=== PATIENT | male | born 1965 | race Caucasian/White ===

== ENCOUNTER 2016-09-28 15:31 | Emergency (ER) | payer MEDICARE, MEDICAID ==
[~2016-09-28] VITALS: Ht 177.8 cm; Wt 122.5 kg
[~2016-09-28 15:31] MED LIST: ALBU2.5V4 IH; ALBU8.5H2 IH; ALBU8.5H2 INH; ALLO100T PO; ALPR1T PO; ALPR1TAB7 PO; ALPR1TAB72; ALPR2TAB2 PO; AMIT25TA9 PO; AMLO10TA4 PO; ASCO-273 PO; ASCO500T20 PO; AZIT-21 PO; BETH25TA PO; CEFD300C3 PO; CEFP500T4 PO; CEFU500T5 PO; CEPH500C PO; CHOL10003 PO; CLIN300C11 PO; COLL30OI TP; CPR500T PO; D50KC PO; DCS100C PO; DOXY100C2 PO; ELTA TOP; EMBREL; ETAN50PE; ETAN50PE SQ; FLUC100T PO; FURO20TA4 PO; FURO40TA4 PO; Fluconazole PO; GABA800T2 PO; GBPN300C PO; GBPN400C PO; GBPN600T PO; HYDR1TAB PO; HYDR32TA PO; INSU100I14 SQ; INSU100I16 SQ; INSU100I5 SQ; IPRA3AMP11 INH; IPRA3AMP19 IH; IPRA3AMP19 NEB; KETO-22 PO; LEVA0.318 IH; LEVE1U SQ; LEVO750T6 PO; LISI10TA PO; LISI10TA2 PO; LISI20TA; LISI20TA PO; LISINOPRIL PO; Lasix; Levamir; METF-380 PO; METF1000; METFORMIN; METO100T2 PO; MTF500T PO; MTH10T PO; MTP25TSR; MTP50T PO; MULT1TAB63 PO; MUPI22OI TP; MUPI22OI2 TP; NEBU-140 MC; NEXIUM 20MG PO; NF-ESOM40C PO; NITR-65 PO; NST15PW TOP; NYST15PO2 TP; Nexium; Novolog; OMEP-10; OMEP20CA6; ONDA4TAB11 PO; OXC20TCR PO; OXC5T PO; OXYC-109; OXYC-272 PO; OXYC-465 PO; OXYC20TA63 PO; OXYC30TA PO; OXYC30TA80 PO; OXYC60TA9 PO; OXYC80TA35 PO; OXYC80TA39 PO; OXYC80TA4 PO; Oxycontin; PANT20TA PO; PRD10T; PRD10T PO; PRD20T PO; PRD5T PO; PRED-165; PRED10TA PO; PRED5TAB PO; PRM25T PO; PROM12.59 PO; PROM25SU10 PR; PROM25TA14 PO; PROP40TA5 PO; Phenergan; RT-ALBUINH IH; SPIR50TA27 PO; SULF-222 PO; SULF1TAB35 PO; Spironolactone; TIOT18CA IH; TIOT18CA2 INH; TMSL.4C; TMSL.4C PO; TOFA11TA PO; TRM50T PO; VITAMIN D PO; ZOLP5TAB6 PO; [UNRECOGNIZED DRUG - CODE]; [UNRECOGNIZED DRUG - OTHER]; [UNRECOGNIZED DRUG - REMARK] PO; [UNRECOGNIZED DRUG - SUPPLY]; lasix
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
[2016-09-28 16:18] LABS: BILIRUBIN,URINE NEGATIVE (NEGATIVE); KETONES,URINE NEGATIVE (NEGATIVE); LEUKOCYTE ESTERASE ,URINE 1+ (NEGATIVE); NITRITE,URINE NEGATIVE (NEGATIVE); PH,URINE 5 (5-9); PROTEIN,URINE 2+ (NEGATIVE); UROBILINOGEN,URINE 1 MG/DL (NORMAL)
[2016-09-28] MEDS ORDERED: RT-ALBUTEROL/IPRATROPIUM 3 ML (DUONEB) VIAL INH ONE (16:30)
--- NOTE | 2016-09-28 16:32 | ED GU-Male ---
General Chief Complaint: -Male Stated Complaint: WEAKNESS/BURNING WHEN URINATING/L SIDE PAIN Nursing Triage Note: to ER with complaints of UTI. Source: patient Exam Limitations: no limitations History of Present Illness Time seen by provider: 16:22 Initial Comments Here with complaint of urinary tract infection and left side pain. States that he has burning with urination over the last few days. Does have history of UTI and sepsis related to UTI so he wanted to be evaluated. Denies fever or chills but he is a little short of breath and that has increased recently. They did an albuterol inhaler at home and that seems to help a little bit. Does have history of bronchitis. Timing/Duration: getting worse, other (several days) Severity/Quality: mild, moderate Location: suprapubic Radiation: LLQ Activities at Onset: none Modifying Factors: Worsens With Urinating Associated Symptoms: abdominal pain dysuriaNo fever/chills, No lower back pain , No nausea/vomiting, urinary frequency Allergies and Home Medications Allergies Coded Allergies: hydrocodone (Verified Allergy, Unknown, TAKES OXYCODONE AT HOME, 05/05/16) STATES IS NOT ALLERGIC TO THIS MED latex (Verified Allergy, Unknown, 05/05/16) Home Medications Albuterol Sulfate 8.5 Gm Hfa.aer.ad 2 PUFF IH BID PRN PRN SHORTNESS OF BREATH ( Reported) Albuterol Sulfate 2.5 Mg/3 Ml Vial.neb #50 2.5 MG IH Q4H PRN PRN WHEEZING Prescribed by: MONTSE BHAKTA on 09/28/161916 Allopurinol 100 Mg Tablet 100 MG PO DAILY PRN PRN GOUT PAIN (Reported) Alprazolam 1 Mg Tablet 1 MG PO Q8H (Reported) Cefdinir 300 Mg Capsule #20 300 MG PO BID Prescribed by: MONTSE BHAKTA on 09/28/161916 Cholecalciferol 1,000 Unit Tablet 1,000 UNIT PO DAILY (Reported) Furosemide 40 Mg Tablet 40 MG PO DAILY PRN PRN FLUID RETENTION (Reported) Gabapentin 800 Mg Tablet 800 MG PO TID (Reported) Insulin Aspart 300 Units/3 Ml Solution SQ SLIDING/SCALE (Reported) Metoprolol Tartrate 100 Mg Tablet 50 MG PO DAILY (Reported) LAST FILLED 12/28/15 #60 Nystatin 15 Gm Powder TP DAILY PRN PRN RASH (Reported) Oxycodone HCl 30 Mg Tablet 30 MG PO Q6H PRN PRN PAIN (Reported) Oxycodone HCl 80 Mg Tab.er.12h 60 MG PO Q8H (Reported) Prednisone 5 Mg Tablet 10 MG PO DAILY (Reported) TAKES 2 (5 MG) TABLETS Promethazine HCl 25 Mg Tablet 25 MG PO Q8H PRN PRN NAUSEA/VOMITING (Reported) Tofacitinib Citrate 11 Mg Tab.er.24h #30 1 TAB PO DAILY (Reported) Constitutional: see HPINo chills, No fever Respiratory: see HPI short of breath wheezing Cardiovascular: no symptoms reported Gastrointestinal: abdominal painNo nausea, No vomiting Genitourinary: dysuria frequency Musculoskeletal: no symptoms reported Skin: no symptoms reported All Other Systemes Reviewed Negative Unless Noted: Yes Past Lxmetsx-Mopoxa-Ftvbnt Hx Patient Social History Alcohol Use: Denies Use Recreational Drug Use: No Smoking Status: Current Everyday Smoker Type Used: Cigarettes 2nd Hand Smoke Exposure: No Recent Foreign Travel: No Contact w/Someone Who Travel: No Recent Infectious Disease Expo: No Recent Hopitalizations: No Immunizations Up To Date Tetanus Booster (TDap): Unknown PED Vaccines UTD: Yes Date of Pneumonia Vaccine: Nov 12, 2012 Seasonal Allergies Seasonal Allergies: No Surgeries HX Surgeries: Yes Surgeries: Abdominal, Cardiac, Orthopedic Respiratory Hx Respiratory Disorders: Yes (TOBACCOISM; RESPIRATORY FAILURE/ON VENT) Respiratory Disorders: Pneumonia, COPD Cardiovascular Hx Cardiac Disorders: Yes (VASCULITIS) Cardiac Disorders: Chronic Edema/Swelling, Hypertension, Peripheral Vascular Neurological Hx Neurological Disorders: Yes (MONO NEURITIS; NEUROPATHY--WHEELCHAIR BOUND) Neurological Disorders: Neuropathy Reproductive System Hx Reproductive Disorders: No Sexually Transmitted Disease: No HIV/AIDS: No Genitourinary Hx Genitourinary Disorders: Yes Genitourinary Disorders: Kidney Stones, Renal Failure Gastrointestinal Hx Gastrointestinal Disorders: Yes (HEPATITIS C--NO TREATMENT. BILARY STENT) Gastrointestinal Disorders: Gastroesophageal Reflux, Hepatitis, Gall Bladder Disease Musculoskeletal Hx Musculoskeletal Disorders: Yes Musculoskeletal Disorders: Degenerate Disk Disease, Arthritis, Rheumatoid Arthritis, Chronic Back Pain Endocrine Hx Endocrine Disorders: Yes (MORBID OBESITY) Endocrine Disorders: Diabetes, Insulin dep HEENT HX ENT Disorders: No Loss of Vision: Denies Hearing Impairment: Denies Cancer Hx Cancer: No Psychosocial Hx Psychiatric Problems: Yes Behavioral Health Disorders: Sleep Difficulties, Anxiety, Depression Integumentary HX Skin/Integumentary Disorder: No Blood Transfusions Hx Blood Disorders: No Reviewed Nursing Assessment Reviewed/Agree w Nursing PMH: Yes Family Medical History Family Medial History: Alcoholism 03 FATHER Diabetes mellitus 03 FATHER Family history: Allergy 03 MOTHER Family history: Asthma 03 MOTHER Family history: Hypertension 03 FATHER 03 MOTHER Physical Exam Vital Signs Vital Sign - Last 12Hours 09/28/16 09/28/16 15:40 17:06 Temp 98.4 Pulse 97 Resp 18 B/P 131/97 Pulse Ox 86 O2 Delivery Room Air O2 Flow Rate 3 Capillary Refill : Less Than 3 Seconds General Appearance: WD/WN no apparent distress HEENT: PERRL/EOMI pharynx normal Neck: full range of motion supple Cardiovascular: regular rate, rhythm no murmur Respiratory: no accessory muscle use decreased breath sounds Gastrointestinal: non tender soft Back: normal inspection no CVA tenderness no vertebral tenderness Extremities: non-tender normal inspection Neurologic/Psychiatric: alert oriented x 3 Skin: normal color warm/dry Date of ETT Placement: Feb 25, 2016 Time of ETT Placement: 1508 Progress/Results/Core Measures Results/Orders Lab Results Laboratory Tests Test 09/28/16 16:10 09/28/16 16:31 09/28/16 17:37 Range/Units Urine Bacteria FEW H /HPF Urine Bilirubin NEGATIVE NEGATIVE Urine Casts PRESENT /LPF Urine Clarity SLIGHTLY CLOUDY Urine Color JER H Urine Crystals NONE /LPF Urine Culture Indicated YES Urine Glucose (UA) 2+ H NEGATIVE Urine Granular Casts 0-2 H /LPF Urine Hyaline Casts 10-25 H /LPF Urine Ketones NEGATIVE NEGATIVE Urine Leukocyte Esterase 1+ H NEGATIVE Urine Mucus SMALL H /LPF Urine Nitrite NEGATIVE NEGATIVE Urine Protein 2+ H NEGATIVE Urine RBC RARE /HPF Urine RBC (Auto) NEGATIVE NEGATIVE Urine Renal Epithelial Cells NONE /HPF Urine Specific [place] 1.030 H 1.016-1.022 Urine Squamous Epithelial Cells 2-5 /HPF Urine Urobilinogen 1 NORMAL MG/DL Urine WBC 2-5 /HPF Urine pH 5 5-9 Glucometer 212 H 70-110 MG/DL Alanine Aminotransferase (ALT/SGPT) 97 H 0-55 U/L Albumin 3.7 3.2-4.5 G/DL Alkaline Phosphatase 71 40-136 U/L Anion Gap 11 5-14 MMOL/L Aspartate Amino Transf (AST/SGOT) 111 H 5-34 U/L BUN/Creatinine Ratio 4 Basophils # (Auto) 0.0 0.0-0.1 10^3/uL Basophils (%) (Auto) 0 0-10 % Blood Urea Nitrogen 7 7-18 MG/DL Calcium Level 11.4 H 8.5-10.1 MG/DL Carbon Dioxide Level 25 21-32 MMOL/L Chloride Level 103 98-107 MMOL/L Creatinine 1.58 H 0.60-1.30 MG/DL Eosinophils # (Auto) 0.1 0.0-0.3 10^3/uL Eosinophils (%) (Auto) 1 0-10 % Estimat Glomerular Filtration Rate 46 Glucose Level 232 H 70-105 MG/DL Hematocrit 43 40-54 % Hemoglobin 14.1 13.3-17.7 G/DL Lymphocytes # (Auto) 1.2 1.0-4.0 X 10^3 Lymphocytes (%) (Auto) 11 L 12-44 % Mean Corpuscular Hemoglobin 33 25-34 PG Mean Corpuscular Hemoglobin Concent 33 32-36 G/DL Mean Corpuscular Volume 101 H 80-99 FL Mean Platelet Volume 10.4 7.4-10.4 FL Monocytes # (Auto) 0.5 0.0-1.0 X 10^3 Monocytes (%) (Auto) 4 0-12 % Neutrophils # (Auto) 9.1 H 1.8-7.8 X 10^3 Neutrophils (%) (Auto) 84 H 42-75 % Platelet Count 183 130-400 10^3/uL Potassium Level 4.8 3.6-5.0 MMOL/L Red Blood Count 4.26 L 4.35-5.85 10^6/uL Red Cell Distribution Width 14.0 10.0-14.5 % Sodium Level 139 135-145 MMOL/L Total Bilirubin 1.0 0.1-1.0 MG/DL Total Protein 7.0 6.4-8.2 G/DL White Blood Count 10.9 4.3-11.0 10^3/uL My Orders Orders-MONTSE BHAKTA MD Ua Culture If Indicated (09/28/16 16:13) Albuterol/Ipra Inhalation Soln (Duoneb I (09/28/16 16:30) Accucheck Stat ONCE (09/28/16 16:27) Svn Sm Volume Nebulizer Rt-Rfs (09/28/16 16:27) Chest 1 View, Ap/Pa Only (09/28/16 16:27) Urine Culture (09/28/16 16:10) Albuterol Pre-Mix Nebs (Rt) (Proventil P (09/28/16 17:02) Svn Sm Volume Nebulizer Rt-Rfs (09/28/16 17:02) Albuterol Pre-Mix Nebs (Rt) (Proventil P (09/28/16 17:02) Cbc With Automated Diff (09/28/16 17:22) Comprehensive Metabolic Panel (09/28/16 17:22) Cefdinir Capsule (Omnicef Capsule) (09/28/16 18:45) Rx-Albuterol Nebs (Rx-Proventil Nebs) (09/28/16 18:45) Prednisone Tablet (Deltasone Tablet) (09/28/16 19:30) Medications Given in ED Current Medications Medications Dose Ordered Sig/Lashawn Route Start Time Stop Time Status Last Admin Dose Admin Albuterol/ Ipratropium 3 ml ONCE ONCE INH 09/28/16 16:30 09/28/16 16:31 DC 09/28/16 16:40 3 ML Cefdinir 300 mg ONCE ONCE PO 09/28/16 18:45 09/28/16 18:46 DC 09/28/16 19:06 300 MG Vital Signs/I&O Vital Sign - Last 12Hours 09/28/16 09/28/16 09/28/16 15:40 16:45 17:06 Temp 98.4 Pulse 97 Resp 18 B/P 131/97 Pulse Ox 86 91 92 O2 Delivery Room Air O2 Flow Rate 3 Blood Pressure Mean: 108 Progress Note : Progress Note Seen and evaluated. UA and chest x-ray ordered. UTI noted. Labs ordered. Patient did receive DuoNeb which did help a little. We did do to repeat albuterol treatments and this did markedly improve his breathing. Labs reviewed with the patient as well as the chest x-ray. We will initiate Cefdinir for UTI which will also cover lungs and initiate prednisone treatment for bronchitis. He will be sent home with a beer all labs and have albuterol neb ordered for home. Patient will follow-up with his doctor on Friday or Friday. He will keep his oxygen increased at home next few days. All of these findings, concerns and instructions discussed with the patient and his mother. Discharge home with return precautions. Patient and family verbalize understanding instructions and agreement with plan. Prednisone 40 mg by mouth given now. He will take prescribed prednisone plus his home dose prednisone daily for the next 5 days and then back to his normal prednisone dosing. Diagnostic Imaging Diagonstic Imaging: Xray Plain Films/CT/US/NM/MRI: chest Comments NAME: [facility] REC#: [id number] PT STATUS: REG ER : 1965 PHYSICIAN: MONTSE BHAKTA MD ADMIT DATE: 09/28/16/ER Signed Date of Exam: 09/28/16 CHEST 1 VIEW, AP/PA ONLY EXAM: Chest 1 view, AP/PA only. INDICATION: Fatigue. Possible UTI. COMPARISON: Chest radiograph from 02/28/2016. FINDINGS: Normal heart size and pulmonary vascularity. Linear atelectasis and/or scarring in the left midlung. No pleural effusion or pneumothorax. IMPRESSION: No acute cardiopulmonary findings. Dictated by: Dictated on workstation # [id number] Dict: 09/28/16 1648 Trans: 09/28/16 1729 [facility] [id number] Interpreted by: KATH ALFARO MD Electronically signed by:KATH ALFARO MD 09/28/16 1731 Reviewed: Reviewed by Me Departure Impression Impression: Primary Impression: Urinary tract infection Qualified Code: N30.00 - Acute cystitis without hematuria Additional Impression: Bronchitis Disposition: 01 HOME, SELF-CARE Condition: Improved Departure-Patient Inst. Decision time for Depature: 19:10 Referrals: GLENN SHAHID MD (PCP) Primary Care Physician Patient Instructions: Acute Bronchitis, Adult (DC), Urinary Tract Infection, Adult (DC) Add. Discharge Instructions: All discharge instructions reviewed with patient and/or family. Voiced understanding. Take your medication as directed. Continue albuterol treatments every 4 hours while awake. Use oxygen at 3 L via nasal cannula at all times for the next few days and then you may return to as needed. You should check your oxygen levels before you do that. Follow-up with your doctor on Friday or Friday for recheck. Return for worse pain, fever, vomiting, weakness, breathing problems or other concerns as needed. Scripts Prednisone 20 Mg Tab20 Mg PO DAILY #5 TAB Prov:MONTSE BHAKTA MD 09/28/16 Albuterol Sulfate 2.5 Mg/3 Ml Vial.neb2.5 Mg IH Q4H PRN WHEEZING #50 EA Ref 0 Prov:MONTSE BHAKTA MD 09/28/16 Cefdinir 300 Mg [id number] Mg PO BID #20 CAP Prov:MONTSE BHAKTA MD 09/28/16 MONTSE BHAKTA MD Sep 28, 2016 16:32
[2016-09-28 16:35] LABS: GRANULAR CASTS,URINE 0-2 /LPF
[2016-09-28] MEDS ORDERED: RT-ALBUTEROL SULF 2.5 MG/3 ML PRE-MIX VIAL INH STA (17:02)
[2016-09-28] MEDS ORDERED: RT-ALBUTEROL SULF 2.5 MG/3 ML PRE-MIX VIAL ONE (17:02)
--- NOTE | 2016-09-28 17:06 | Diagnostic Imaging Report ---
EXAM: Chest 1 view, AP/PA only. INDICATION: Fatigue. Possible UTI. COMPARISON: Chest radiograph from 02/28/2016. FINDINGS: Normal heart size and pulmonary vascularity. Linear atelectasis and/or scarring in the left midlung. No pleural effusion or pneumothorax. IMPRESSION: No acute cardiopulmonary findings. Dictated by: Dictated on workstation # [id number]
[2016-09-28 17:45] LABS: BASOPHILS % (AUTO) 0 % (0-10); EOSINOPHILS # (AUTO) 0.1 10^3/uL (0.0-0.3); EOSINOPHILS % (AUTO) 1 % (0-10); LYMPHOCYTES # (AUTO) 1.2 X 10^3 (1.0-4.0); LYMPHOCYTES % (AUTO) 11 % (12-44); MEAN CORPUSCULAR HEMOGLOBIN 33 PG (25-34); MEAN CORPUSCULAR HGB CONC 33 G/DL (32-36); MEAN CORPUSCULAR VOLUME 101 FL (80-99); MEAN PLATELET VOLUME 10.4 FL (7.4-10.4); MONOCYTES # (AUTO) 0.5 X 10^3 (0.0-1.0); MONOCYTES % (AUTO) 4 % (0-12); NEUTROPHILS # (AUTO) 9.1 X 10^3 (1.8-7.8); NEUTROPHILS % (AUTO) 84 % (42-75); PLATELET COUNT 183 10^3/uL (130-400); RED BLOOD COUNT 4.26 10^6/uL (4.35-5.85); WHITE BLOOD COUNT 10.9 10^3/uL (4.3-11.0)
[2016-09-28 18:10] LABS: ALBUMIN 3.7 G/DL (3.2-4.5); CALCIUM 11.4 MG/DL (8.5-10.1); CREATININE SERUM 1.58 MG/DL (0.60-1.30); POTASSIUM 4.8 MMOL/L (3.6-5.0)
[2016-09-28] MEDS ORDERED: CEFDINIR 300 MG (OMNICEF) CAP PO ONE (18:45)
[2016-09-28] MEDS ORDERED: RX-ALBUTEROL NEB 2.5 MG/3 ML PACK #5 IH STA (18:45)
[2016-09-28] MEDS ORDERED: CEFD300C3 PO (19:17)
[2016-09-28] MEDS ORDERED: ALBU2.5V4 IH (19:17)
[2016-09-28] MEDS ORDERED: predniSONE 20 MG TAB ONE (19:21)
[2016-09-28] MEDS ORDERED: PRD20T PO (19:22)
[2016-09-28 19:30] VITALS: BP 105/65
[2016-09-28] MEDS ORDERED: predniSONE 20 MG TAB PO ONE (19:30)
== END 2016-09-28 19:30 | disposition home or self-care (01) ==
LOC: EDUNIT# 15:31 → ER 15:33
DX: N39.0 Urinary tract infection, site not specified (principal); J44.9 Chronic obstructive pulmonary disease, unspecified; E11.9 Type 2 diabetes mellitus without complications; E66.01 Morbid (severe) obesity due to excess calories; F17.210 Nicotine dependence, cigarettes, uncomplicated; Z79.899 Other long term (current) drug therapy; Z79.4 Long term (current) use of insulin; Z99.81 Dependence on supplemental oxygen
CPT/HCPCS: 36415; 71010; 80053; 81000; 82962; 85025; 87088; 94640; 99283

== ENCOUNTER → 2016-10-24 | Outpatient (CLI) | payer MEDICARE, MEDICAID ==
[~2016-10-24] MED LIST changes: +AMOX-358 PO; +ERYT1OIN6 OP
--- OUTSIDE RECORDS SUMMARY | 2016-10-24 09:18 | XMS REPORT | Continuity of Care Document ---
Author Author [facility] Organization [facility] Address Unknown Phone Unavailable Care Team Providers Care Customer Relations Coordinator Name Role Phone Gustavo Rosario PCP [phone] Source Comments Some departments are not documenting in the electronic medical record. If you do not see the information that you expected, contact Release of Information in the Health Information Management department at [phone] for further assistance in locating additional records.[facility] Active Allergies and Adverse Reactions Allergen [...] Recent Encounters Date Type Specialty Providers Description 10/18/2016 Telephone Neurology Juanpablo Forman MD Appointment Request 09/27/2016 Telephone Neurology Juanpablo Forman MD Appointment [...] 06/20/2016 11:30 AM CDT Plan of Care Date Type Specialty Providers Description 02/04/2017 Appointment Neurology Juanpablo Forman MD [address] [place] [address] [phone] (Fax) 02/04/2017 Appointment Neurology Health Maintenance Due Date Last Done Comments Physical (Comprehensive) 1972 Exam Pertussis Vaccine 1976 Tetanus Vaccine 1982 Colorectal Cancer 2015 Screening Influenza Vaccine 04/18/2017 Results from Last 3 Months Not on file
--- NOTE | 2016-10-24 15:47 | Diagnostic Imaging Report ---
Bilateral feet. INDICATION: Foot pain, diabetic neuropathy. FINDINGS: Three views of both feet were obtained. As noted on the prior left foot exam of 07/14/2016, there are healing slightly displaced fractures involving the necks of the second, third, and fourth metatarsals. There does seem to have been somewhat further healing of these fractures in the interval since the prior exam. I suspect that the fractures are now nearly completely if not completely healed. There is no fracture or acute bony abnormality of either foot; however, the osseous structures are demineralized. There is also a small calcaneal spur. Furthermore, the lateral view does show that there is soft tissue edema over the dorsum of the forefoot on the right. The soft tissues of the left foot are generally unremarkable. There is no radiopaque foreign body identified. All of these findings are similar to the prior exam of 07/14/2016. IMPRESSION: 1. There has been further healing of the fractures of the necks of the second, third, and fourth metatarsals of the left foot in the interval since the prior exam. The fractures are now nearly completely if not completely healed. 2. There is no acute bony abnormality identified, but there is again soft tissue edema over the dorsum of the forefoot on the right. 3. If clinical concern regarding an underlying abnormality persists, then MRI will be recommended for further study. Dictated by: Dictated on workstation # [id number]
--- NOTE | 2016-10-24 15:52 | Diagnostic Imaging Report ---
Bilateral hands. INDICATION: Bilateral hand pain. FINDINGS: Three views of each hand were obtained. There are no prior studies available for comparison. There is no fracture, dislocation, or acute bony abnormality evident. The osseous structures are demineralized and there is moderate degenerative disease involving the PIP and DIP joints of each digit of each hand. The soft tissues are unremarkable. IMPRESSION: 1. There is no evidence for an acute bony abnormality. 2. The osseous structures are demineralized and there are degenerative changes involving the PIP and DIP joints of each digit of both hands. Dictated by: Dictated on workstation # [id number]
--- NOTE | 2016-10-24 16:23 | Diagnostic Imaging Report ---
PA and lateral chest at 09:50 a.m. INDICATION: Respiratory distress. FINDINGS: The cardiomegaly noted on 02/28/2016 is again evident and no different. The thin band of increased density in the right mid lung noted on the previous study has resolved. The lungs are generally clear and well aerated. There is no evidence for failure, pneumonia, or for pleural effusion. The mediastinum is not widened. The osseous structures are intact. IMPRESSION: There is no evidence for an acute cardiopulmonary abnormality. Dictated by: Dictated on workstation # [id number]
== END ==
LOC: RAD 09:14
PROVIDERS: ATTEND Internal Medicine Rheumatology
DX: B19.20 Unspecified viral hepatitis C without hepatic coma (principal); G63 Polyneuropathy in diseases classified elsewhere; N28.9 Disorder of kidney and ureter, unspecified; K74.60 Unspecified cirrhosis of liver; Z79.899 Other long term (current) drug therapy
CPT/HCPCS: 36415; 71020; 82595

== ENCOUNTER 2016-12-15 10:28 | Emergency (ER) | payer MEDICARE, MEDICAID ==
[~2016-12-15] VITALS: Ht 177.8 cm; Wt 127.0 kg
[~2016-12-15 10:28] MED LIST changes: -AMOX-358 PO; -ERYT1OIN6 OP
[2016-12-15 10:45] VITALS: BP 148/102
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
[2016-12-15] MEDS ORDERED: NS IV 1000 ML 1,000 ML IV ONE (11:32)
[2016-12-15] MEDS ORDERED: morphine INJ 10 MG/ML 1ML (SYR OR VIAL) IVP STA (11:32)
[2016-12-15] MEDS ORDERED: ORPHENADRINE 60 MG/2 ML (NORFLEX) AMP IM STA (11:32)
[2016-12-15] MEDS ORDERED: ONDANSETRON 4 MG (ZOFRAN) ORAL DISSOLVE TAB SL STA (11:40)
[2016-12-15] MEDS ORDERED: morphine INJ 10 MG/ML 1ML (SYR OR VIAL) IM STA (11:40)
[2016-12-15] MEDS ORDERED: diphenhydrAMINE 25 MG TAB (BENADRYL) PO ONE (11:45)
[2016-12-15] MEDS ORDERED: ONDANSETRON 4 MG/2 ML (SDV) Z0FRAN IVP ONE (11:45)
--- NOTE | 2016-12-15 12:15 | Diagnostic Imaging Report ---
PROCEDURE: CT head without contrast. TECHNIQUE: Multiple contiguous axial images were obtained through the brain without the use of intravenous contrast. INDICATION: Headaches Comparison: 02/25/2016 Findings: No acute intracranial hemorrhage, mass effect or edema seen. There is mild diffuse atrophy. The ventricles appear normal. No new focal abnormality is suspected. Paranasal sinuses appear clear. Impression: No evidence of an acute intracranial abnormality. No significant interval change from the prior study. Dictated by: Dictated on workstation # [id number]
[2016-12-15] MEDS ORDERED: ERYT1OIN6 OP (12:30)
[2016-12-15] MEDS ORDERED: oxyCODONE/APAP 5/325MG (PERCOCET 5) TABLET PO STA (13:10)
== END 2016-12-15 13:21 | disposition home or self-care (01) ==
LOC: EDUNIT# 10:28 → ER 10:30
DX: G43.909 Migraine, unspecified, not intractable, without status migrainosus (principal); H10.32 Unspecified acute conjunctivitis, left eye; J44.9 Chronic obstructive pulmonary disease, unspecified; E11.9 Type 2 diabetes mellitus without complications; E66.01 Morbid (severe) obesity due to excess calories; Z79.4 Long term (current) use of insulin; Z79.899 Other long term (current) drug therapy
CPT/HCPCS: 70450; 96372; 99282

== ENCOUNTER 2016-12-20 19:01 | Emergency (ER) | payer MEDICARE, MEDICAID ==
[~2016-12-20] VITALS: Ht 177.8 cm; Wt 127.0 kg
[~2016-12-20 19:01] MED LIST changes: +ERYT1OIN6 OP
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
[2016-12-20 19:47] LABS: BASOPHILS % (AUTO) 0 % (0-10); EOSINOPHILS # (AUTO) 0.1 10^3/uL (0.0-0.3); EOSINOPHILS % (AUTO) 1 % (0-10); LYMPHOCYTES % (AUTO) 11 % (12-44); MEAN CORPUSCULAR HEMOGLOBIN 32 PG (25-34); MEAN CORPUSCULAR HGB CONC 32 G/DL (32-36); MEAN CORPUSCULAR VOLUME 99 FL (80-99); MEAN PLATELET VOLUME 10.9 FL (7.4-10.4); MONOCYTES # (AUTO) 0.5 X 10^3 (0.0-1.0); MONOCYTES % (AUTO) 5 % (0-12); NEUTROPHILS # (AUTO) 7.7 X 10^3 (1.8-7.8); NEUTROPHILS % (AUTO) 83 % (42-75); PLATELET COUNT 165 10^3/uL (130-400); RED BLOOD COUNT 4.24 10^6/uL (4.35-5.85); WHITE BLOOD COUNT 9.3 10^3/uL (4.3-11.0)
[2016-12-20] MEDS ORDERED: AMOX-358 PO (19:57)
--- NOTE | 2016-12-20 19:59 | Diagnostic Imaging Report ---
INDICATION: Right leg swelling. TECHNIQUE: Grayscale with color-flow and Doppler waveform evaluation of the right lower extremity deep venous system. CORRELATION STUDY: None FINDINGS: Color and grayscale sonographic images demonstrate no intraluminal defect within the visualized portion of the common femoral, superficial femoral and/or popliteal veins to suggest thrombus formation. These vessels demonstrate normal response to compression and augmentation. Subcutaneous edema is present. IMPRESSION: 1. Negative for deep venous thrombosis of the right leg. Dictated by: Dictated on workstation # [id number]
[2016-12-20] MEDS ORDERED: cefTRIAXone 1 GM (ROCEPHIN) VIAL IM ONE (20:00)
[2016-12-20] MEDS ORDERED: LIDOCAINE 1% INJ 20 ML (XYLOCAINE) VIAL INJ ONE (20:00)
[2016-12-20 20:08] LABS: CALCIUM 10.8 MG/DL (8.5-10.1); CREATININE SERUM 1.3 MG/DL (0.60-1.30); POTASSIUM 4.6 MMOL/L (3.6-5.0)
[2016-12-20 20:27] VITALS: BP 158/88
== END 2016-12-20 20:27 | disposition home or self-care (01) ==
LOC: EDUNIT# 19:01 → ER 19:03
DX: L03.115 Cellulitis of right lower limb (principal); E11.9 Type 2 diabetes mellitus without complications; J44.9 Chronic obstructive pulmonary disease, unspecified; F17.210 Nicotine dependence, cigarettes, uncomplicated; E66.01 Morbid (severe) obesity due to excess calories; Z68.41 Body mass index [BMI] 40.0-44.9, adult; Z79.4 Long term (current) use of insulin; Z79.899 Other long term (current) drug therapy
CPT/HCPCS: 36415; 80048; 85025; 96372; 99281

== ENCOUNTER 2017-03-25 13:48 | Emergency (ER) | payer MEDICARE, MEDICAID ==
[~2017-03-25] VITALS: Ht 177.8 cm; Wt 131.6 kg
[~2017-03-25 13:48] MED LIST changes: +AMOX-358 PO
--- NOTE | 2017-03-25 14:26 | ED Back Pain ---
General Chief Complaint: Back Problems Stated Complaint: FALL/LOWER BACK PAIN Nursing Triage Note: pt reports he fell off his walker chair and landed on his bottom. pt reports tailbone pain. Nursing Sepsis Screen: No Definite Risk Source of Information: Patient Exam Limitations: No Limitations History of Present Illness Time Seen by Provider: 13:54 Initial Comments Here with complaint of pain to the tailbone area. He is apparently transferring from a bedside commode to his prior scooter when he fell and landed on his bottom. Complains of pain to that area. Denies other injury. Location: Coccyx Timing/Duration: 1 Hour Severity: Moderate Pain/Injury Location: Pelvis Method of Injury: Fall Modifying Factors: Worse With Movement Associated Symptoms: No muscle spasms, No fever, No weakness, numbness in legs/ feet (chronic) Allergies and Home Medications Allergies Coded Allergies: hydrocodone (Verified Allergy, Unknown, TAKES OXYCODONE AT HOME, 05/05/16) STATES IS NOT ALLERGIC TO THIS MED latex (Verified Allergy, Unknown, 05/05/16) Home Medications Albuterol Sulfate 8.5 Gm Hfa.aer.ad, 2 PUFF IH BID PRN for SHORTNESS OF BREATH, (Reported) Albuterol Sulfate 2.5 Mg/3 Ml Vial.neb, 2.5 MG IH Q4H PRN for WHEEZING, #50 Ref 0 Prescribed by: MONTSE BHAKTA on 09/28/161916 Allopurinol 100 Mg Tablet, 100 MG PO DAILY PRN for GOUT PAIN, (Reported) Alprazolam 1 Mg Tablet, 1 MG PO Q8H, (Reported) Amoxicillin/Potassium Clav 1 Each Tablet, 1 EACH PO BID, #14 Prescribed by: CANDACE ACOSTA on 12/20/161956 Cholecalciferol 1,000 Unit Tablet, 1,000 UNIT PO DAILY, (Reported) Erythromycin Base 1 Gm Oint...g., 0 OP Q4H, #1 Ref 0 1/2 inch Prescribed by: JOHNNA YEAGER on 12/15/16 1230 Furosemide 40 Mg Tablet, 40 MG PO DAILY PRN for FLUID RETENTION, (Reported) Gabapentin 800 Mg Tablet, 800 MG PO TID, (Reported) Insulin Aspart 300 Units/3 Ml Solution, SQ SLIDING/SCALE, (Reported) Metoprolol Tartrate 100 Mg Tablet, 50 MG PO DAILY, (Reported) LAST FILLED 12/28/15 #60 Nystatin 15 Gm Powder, TP DAILY PRN for RASH, (Reported) Oxycodone HCl 30 Mg Tablet, 30 MG PO Q6H PRN for PAIN, (Reported) Oxycodone HCl 80 Mg Tab.er.12h, 60 MG PO Q8H, (Reported) Prednisone 5 Mg Tablet, 10 MG PO DAILY, (Reported) TAKES 2 (5 MG) TABLETS Prednisone 20 Mg Tab, 20 MG PO DAILY, #5 Prescribed by: MONTSE BHAKTA on 09/28/161921 Promethazine HCl 25 Mg Tablet, 25 MG PO Q8H PRN for NAUSEA/VOMITING, (Reported) Tofacitinib Citrate 11 Mg Tab.er.24h, 1 TAB PO DAILY, #30 (Reported) Constitutional: see HPI, No chills, No fever Respiratory: no symptoms reported Cardiovascular: no symptoms reported Gastrointestinal: no symptoms reported Musculoskeletal: see HPI, back pain, joint pain Skin: no symptoms reported Past Xijjkqa-Rxsnoe-Vrgldl Hx Patient Social History Alcohol Use: Denies Use Recreational Drug Use: No Smoking Status: Current Everyday Smoker Type Used: Cigarettes 2nd Hand Smoke Exposure: No Recent Foreign Travel: No Contact w/Someone Who Travel: No Recent Infectious Disease Expo: No Recent Hopitalizations: No Immunizations Up To Date Tetanus Booster (TDap): Unknown PED Vaccines UTD: Yes Date of Pneumonia Vaccine: Nov 12, 2012 Seasonal Allergies Seasonal Allergies: No Surgeries HX Surgeries: Yes Surgeries: Abdominal, Cardiac, Orthopedic Respiratory Hx Respiratory Disorders: Yes (TOBACCOISM; RESPIRATORY FAILURE/ON VENT) Respiratory Disorders: Pneumonia, COPD Cardiovascular Hx Cardiac Disorders: Yes (VASCULITIS) Cardiac Disorders: Chronic Edema/Swelling, Hypertension, Peripheral Vascular Neurological Hx Neurological Disorders: Yes (MONO NEURITIS; NEUROPATHY--WHEELCHAIR BOUND) Neurological Disorders: Neuropathy Reproductive System Hx Reproductive Disorders: No Sexually Transmitted Disease: No HIV/AIDS: No Genitourinary Hx Genitourinary Disorders: Yes Genitourinary Disorders: Kidney Stones, Renal Failure Gastrointestinal Hx Gastrointestinal Disorders: Yes (HEPATITIS C--NO TREATMENT. BILARY STENT) Gastrointestinal Disorders: Gastroesophageal Reflux, Hepatitis, Gall Bladder Disease Musculoskeletal Hx Musculoskeletal Disorders: Yes Musculoskeletal Disorders: Degenerate Disk Disease, Arthritis, Rheumatoid Arthritis, Chronic Back Pain Endocrine Hx Endocrine Disorders: Yes (MORBID OBESITY) Endocrine Disorders: Diabetes, Insulin dep HEENT HX ENT Disorders: No Loss of Vision: Denies Hearing Impairment: Denies Cancer Hx Cancer: No Psychosocial Hx Psychiatric Problems: Yes Behavioral Health Disorders: Sleep Difficulties, Anxiety, Depression Integumentary HX Skin/Integumentary Disorder: No Blood Transfusions Hx Blood Disorders: No Reviewed Nursing Assessment Reviewed/Agree w Nursing PMH: Yes Family Medical History Significant Family History: No Pertinent Family Hx Family Medial History: Alcoholism 03 FATHER Diabetes mellitus 03 FATHER Family history: Allergy 03 MOTHER Family history: Asthma 03 MOTHER Family history: Hypertension 03 FATHER 03 MOTHER Physical Exam Vital Signs Vital Sign - Last 12Hours 03/25/17 14:04 Temp 97.9 Pulse 84 Resp 18 B/P (MAP) 208/120 Pulse Ox 98 Capillary Refill : Less Than 3 Seconds General Appearance: No Apparent Distress, WD/WN Cardiovascular: Regular Rate, Rhythm, No Murmur Respiratory: Lungs Clear, Normal Breath Sounds Back: Normal Inspection, No CVA Tenderness, No Vertebral Tenderness, Other ( tender at the area of the distal sacrum/coccyx) Neurologic/Psychiatric: Alert, Oriented x3 Date of ETT Placement: Feb 25, 2016 Time of ETT Placement: 1508 Progress/Results/Core Measures Results/Orders Lab Results Laboratory Tests Test 03/25/17 14:47 Range/Units Urine Color YELLOW Urine Clarity CLEAR Urine pH 8 5-9 Urine Specific [place] 1.010 L 1.016-1.022 Urine Protein 1+ H NEGATIVE Urine Glucose (UA) NEGATIVE NEGATIVE Urine Ketones 1+ H NEGATIVE Urine Nitrite NEGATIVE NEGATIVE Urine Bilirubin NEGATIVE NEGATIVE Urine Urobilinogen NORMAL NORMAL MG/DL Urine Leukocyte Esterase 1+ H NEGATIVE Urine RBC (Auto) NEGATIVE NEGATIVE Urine RBC NONE /HPF Urine WBC 2-5 /HPF Urine Crystals NONE /LPF Urine Bacteria NONE /HPF Urine Casts NONE /LPF Urine Mucus NEGATIVE /LPF Urine Culture Indicated NO My Orders Orders - MONTSE BHAKTA MD Pelvis (03/25/17 13:58) Sacrum And Coccyx (03/25/17 13:58) Ua Culture If Indicated (03/25/17 14:29) Vital Signs/I&O Vital Sign - Last 12Hours 03/25/17 14:04 Temp 97.9 Pulse 84 Resp 18 B/P (MAP) 208/120 Pulse Ox 98 Blood Pressure Mean: 149 Progress Note : Progress Note Seen and evaluated. X-ray pelvis and sacrum/coccyx ordered. Monitor patient. UA ordered. No acute findings on x-ray or urine. Discharged home with return precautions. Patient verbalize understanding instructions and agreement with plan. Diagnostic Imaging Diagonstic Imaging: Xray Plain Films/CT/US/NM/MRI: pelvis Comments NAME: STEVEN STEPHENS [facility] REC#: [id number] PT STATUS: REG ER : 1965 PHYSICIAN: MONTSE BHAKTA MD ADMIT DATE: 03/25/17/ER Signed Date of Exam: 03/25/17 PELVIS AP view of the pelvis. INDICATION: Injury. FINDINGS: No fracture or dislocation is seen. Joint alignment is satisfactory. There is mild/moderate joint space narrowing and subchondral sclerosis seen bilaterally in the hip joints. There are also sclerotic changes in the femoral heads bilaterally suggestive of avascular necrosis. This appears to be chronic and comparable to findings of CT scan of 12/03/2015. The SI joints appear unremarkable. IMPRESSION: Moderate bilateral hip osteoarthritis. 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 Dictated by: Dictated on workstation # [id number] Dict: 03/25/17 1441 Trans: 03/25/17 1458 Interpreted by: HAMZAH METZ MD Electronically signed by: HAMZAH METZ MD 03/25/171457 Reviewed: Reviewed by Me Diagonstic Imaging: Xray Plain Films/CT/US/NM/MRI: other (sacrum and coccyx) Comments NAME: STEVEN STEPHENS [facility] REC#: [id number] PT STATUS: REG ER : 1965 PHYSICIAN: MONTSE BHAKTA MD ADMIT DATE: 03/25/17/ER Signed Date of Exam: 03/25/17 SACRUM AND COCCYX 3 views of the sacrum and coccyx. INDICATION: Injury. FINDINGS: No fracture, dislocation, or radiopaque foreign body. There is symmetric appearance of the SI joints with no significant degenerative changes. IMPRESSION: No acute process. Chronic findings of avascular necrosis of the femoral heads are better described and seen on radiograph of the pelvis. Dictated by: Dictated on workstation # [id number] Dict: 03/25/17 1445 Trans: 03/25/17 1458 Interpreted by: HAMZAH METZ MD Reviewed: Reviewed by Me Departure Impression Impression: Primary Impression: Pelvic contusion Qualified Codes: S30.0XXA - Contusion of lower back and pelvis, initial encounter Disposition: HOME, SELF-CARE Condition: Improved Departure-Patient Inst. Decision time for Depature: 15:21 Referrals: GLENN SHAHID MD (PCP/Family) Primary Care Physician Patient Instructions: Contusion (DC) Add. Discharge Instructions: All discharge instructions reviewed with patient and/or family. Voiced understanding. Continue home medications as directed. Follow-up with your Dr. in a few days for recheck as needed. Return for worse pain, swelling, weakness, breathing problems or other concerns as needed. MONTSE BHAKTA MD Mar 25, 2017 14:26
--- NOTE | 2017-03-25 14:49 | Diagnostic Imaging Report ---
AP view of the pelvis. INDICATION: Injury. FINDINGS: No fracture or dislocation is seen. Joint alignment is satisfactory. There is mild/moderate joint space narrowing and subchondral sclerosis seen bilaterally in the hip joints. There are also sclerotic changes in the femoral heads bilaterally suggestive of avascular necrosis. This appears to be chronic and comparable to findings of CT scan of 12/03/2015. The SI joints appear unremarkable. IMPRESSION: Moderate bilateral hip osteoarthritis. 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 Dictated by: Dictated on workstation # [id number]
--- NOTE | 2017-03-25 14:50 | Diagnostic Imaging Report ---
3 views of the sacrum and coccyx. INDICATION: Injury. FINDINGS: No fracture, dislocation, or radiopaque foreign body. There is symmetric appearance of the SI joints with no significant degenerative changes. IMPRESSION: No acute process. Chronic findings of avascular necrosis of the femoral heads are better described and seen on radiograph of the pelvis. Dictated by: Dictated on workstation # [id number]
[2017-03-25 14:55] LABS: BILIRUBIN,URINE NEGATIVE (NEGATIVE); KETONES,URINE 1+ (NEGATIVE); LEUKOCYTE ESTERASE ,URINE 1+ (NEGATIVE); NITRITE,URINE NEGATIVE (NEGATIVE); PH,URINE 8 (5-9); PROTEIN,URINE 1+ (NEGATIVE); UROBILINOGEN,URINE NORMAL (NORMAL)
[2017-03-25 15:25] VITALS: BP 180/110
== END 2017-03-25 15:25 | disposition home or self-care (01) ==
LOC: EDUNIT# 13:48 → ER 13:50
DX: S30.0XXA Contusion of lower back and pelvis, initial encounter (principal); J44.9 Chronic obstructive pulmonary disease, unspecified; I10 Essential (primary) hypertension; M06.9 Rheumatoid arthritis, unspecified; E66.01 Morbid (severe) obesity due to excess calories; E11.40 Type 2 diabetes mellitus with diabetic neuropathy, unspecified; F41.9 Anxiety disorder, unspecified; F32.9 Major depressive disorder, single episode, unspecified; F17.210 Nicotine dependence, cigarettes, uncomplicated; Z79.4 Long term (current) use of insulin; Z68.41 Body mass index [BMI] 40.0-44.9, adult; Z87.442 Personal history of urinary calculi; W05.0XXA Fall from non-moving wheelchair, initial encounter
CPT/HCPCS: 72170; 72220; 81000; 99282

== ENCOUNTER → 2017-04-16 | Outpatient (CLI) | payer MEDICARE, MEDICAID ==
[~2017-04-16] MED LIST changes: +ALBU2.5V4 NEB; +CHOL10007 PO; +ESCI10TA PO; +GABA-490 PO; +INSU100I23 SC; +INSU100I29 SC; +METO-272 PO; +ONDA4TAB8 PO; +POTA8TAB53 PO; +VENL75CA93 PO
[2017-04-17 08:21] LABS: HCV INDEX >11.00 Index (0.00-0.79)
[2017-04-18 15:29] LABS: HEP C COPIES ML Not Detected (<=11)
[2017-04-21 07:23] LABS: HEPATITIS C LOG ML Not Detected (Not Detected)
== END ==
LOC: LAB 09:27
PROVIDERS: ATTEND Family Medicine
DX: B19.20 Unspecified viral hepatitis C without hepatic coma (principal)
CPT/HCPCS: 36415; 80074; 87522; 87902

== ENCOUNTER 2017-04-22 18:35 | Emergency (ER) | payer MEDICARE, MEDICAID ==
[~2017-04-22] VITALS: Ht 177.8 cm; Wt 136.1 kg
[~2017-04-22 18:35] MED LIST changes: -ALBU2.5V4 NEB; -CHOL10007 PO; -ESCI10TA PO; -GABA-490 PO; -INSU100I23 SC; -INSU100I29 SC; -METO-272 PO; -ONDA4TAB8 PO; -POTA8TAB53 PO; -VENL75CA93 PO
--- OUTSIDE RECORDS SUMMARY | 2017-04-22 18:41 | XMS REPORT | Encounter Summary ---
Author Author [facility] Organization [facility] Address Unknown Phone Unavailable Care Team Providers Care Sales Enablement Consultant Name Role Phone PCP Unavailable Reason for Visit * Reason Comments FYI Encounter Details Date Type Department Care Team Description 02/20/2017 Telephone [facility] Juanpbalo Forman MD FYI - Neurology [address] [place] [address] [place] [address] [phone] Social History Tobacco Use Types Packs/Day Years Used Date Former Smoker Cigarettes 0.5 25 Smokeless Tobacco: Never Used Comments: quit 02/16/2016 Alcohol Use Drinks/Week oz/Week Comments No 0 Standard 0.0 drinks or equivalent Sex Assigned at Date Recorded Not on file as of this encounter Functional Status Functional Status Response Date of Assessment Does the patient have a hearing impairment: No 02/28/2014 Does the patient have a visual impairment: No 02/28/2014 Does the patient have impaired ambulation: Yes 02/28/2014 Does the patient have an activity of daily living Yes 02/28/2014 (ADL) impairment: Does the patient have an instrumental activity of Yes 02/28/2014 daily living (IADL) impairment: Cognitive Status Response Date of Assessment Does the patient have a cognitive impairment: No 02/28/2014 as of this encounter Plan of Treatment Not on fileas of this encounter Visit Diagnoses Not on filein this encounter
--- OUTSIDE RECORDS SUMMARY | 2017-04-22 18:41 | XMS REPORT | Clinical Summary ---
Author Author [facility] Organization [facility] Address Unknown Phone Unavailable Care Team Providers Care Resident Manager Name Role Phone PCP Unavailable Source Comments Some departments are not documenting in the electronic medical record. If you do not see the information that you expected, contact Release of Information in the Health Information Management department at [phone] for further assistance in locating additional records.[facility] Allergies Active Allergy Reactions Severity Noted Date Comments Doxycycline SHORTNESS OF BREATH, 02/25/2014 After vomiting he feels NAUSEA AND VOMITING well. Latex SEE COMMENTS 07/01/2013 Reports it causes pain. Current Medications Prescription Sig. Disp. Refills Start End Date Status Date insulin aspart (NOVOLOG) Inject into area(s) as Active 100 unit/mL flexPEN directed three times daily with meals. Sliding scale predniSONE (DELTASONE) 10 Take 10 mg by mouth Active mg tablet daily. cholecalciferol (Vitamin Take 1,000 Units by mouth Active D3) (VITAMIN D-3) 1,000 daily. units tablet promethazine (PHENERGAN) Take 25 mg by mouth three Active 25 mg tablet times daily as needed. furosemide (LASIX) 20 mg Take 20-40 mg by mouth Active tablet daily as needed. Takes as needed for edema. ALPRAZOLAM (XANAX PO) Take 1 mg by mouth every Active 8 hours. gabapentin (NEURONTIN) Take 1 Tab by mouth three 270 Tab 1 05/01/20 Active 800 mg tablet times daily. 16 Compression Socks, Large 1 pair compression socks, 1 Each 0 06/20/20 Active misc large- wear during the 16 day metoprolol XL (TOPROL XL) Take 50 mg by mouth Active 50 mg extended release daily. tablet cholecalciferol(+) Take 50,000 Units by Active (Vitamin D3) 50,000 units mouth every 7 days. capsule oxyCODONE SR (OXYCONTIN) Take 80 mg by mouth three Active 80 mg tablet times daily oxyCODONE (ROXICODONE, Take 30 mg by mouth four Active OXY-IR) 30 mg tablet times daily insulin detemir(+) Inject 15 Units under the Active (LEVEMIR FLEXTOUCH) 100 skin daily with dinner. unit/mL (3 mL) injection pen Active Problems Problem Noted Date Rheumatoid arthritis (HCC) 02/04/2017 Gouty arthropathy 05/01/2016 Ureteral stone 08/25/2014 Calculus [...] multiplex 12/22/2009 Hypertension 12/22/2009 Urinary retention 12/22/2009 Encounters Date Type Specialty Care Team Description 03/04/2017 Telephone Neurology Juanpablo Forman MD Altered mental status; Neuropathy 02/20/2017 Telephone Neurology Juanpablo Forman MD FYI 02/04/2017 Office Visit Neurology Juanpablo Forman MD Mononeuritis multiplex (Primary Dx);Chronic hepatitis C without hepatic coma (HCC);Cryoglobulinemia (HCC);Rheumatoid arthritis involving elbow, unspecified laterality, unspecified rheumatoid factor presence (HCC) 02/04/2017 Orders Only Neurology Juanpablo Forman MD from Last 3 Months Family History Medical History Relation Name Comments Cancer Maternal Aunt High Cholesterol Maternal Aunt Hypertension Maternal Aunt Hypertension Maternal Grandfather Stroke Maternal Grandfather Diabetes Maternal Grandmother Heart Attack Maternal Grandmother Heart Attack Maternal Uncle High Cholesterol Maternal Uncle Hypertension Maternal Uncle Asthma Mother Hypertension Mother Other Mother Arthritis-rheumatoid Paternal Aunt Depression Paternal Aunt Diabetes Paternal Aunt Hypertension Paternal Grandfather Stroke Paternal Grandfather Heart Attack Paternal Grandmother Diabetes Paternal Uncle Heart Attack Paternal Uncle High Cholesterol Paternal Uncle Hypertension Paternal Uncle Arthritis-rheumatoid Sister Relation Name Status Comments Maternal Aunt Maternal Grandfather Maternal Grandmother Maternal Uncle Mother Paternal Aunt Paternal Grandfather Paternal Grandmother Paternal Uncle Sister Social History Tobacco Use Types Packs/Day Years Used Date Former Smoker Cigarettes 0.5 25 Smokeless Tobacco: Never Used Comments: quit 02/16/2016 Alcohol Use Drinks/Week oz/Week Comments No 0 Standard 0.0 drinks or equivalent Sex Assigned at Date Recorded Not on file Last Filed Vital Signs Vital Sign Reading Time Taken Blood Pressure 148/90 02/04/2017 9:47 AM CDT Pulse 73 02/04/2017 9:47 AM CDT Temperature 36.6 C (97.8 F) 06/20/2016 11:30 AM CDT Respiratory Rate - - Oxygen Saturation 95% 06/20/2016 11:30 AM CDT Inhaled Oxygen - - Concentration Weight 127 kg (280 lb) 02/04/2017 9:47 AM CDT Height 177.8 cm (5' 10") 02/04/2017 9:47 AM CDT Body Mass Index 40.18 02/04/2017 9:47 AM CDT Plan of Treatment Health Maintenance Due Date Last Done Comments PHYSICAL (COMPREHENSIVE) 1972 EXAM PERTUSSIS VACCINE 1976 TETANUS VACCINE 1982 COLORECTAL CANCER 2015 SCREENING INFLUENZA VACCINE 04/18/2017 Results * CRYOGLOBULIN W REFLEX IMMUNOFIXATION (02/04/2017 11:33 AM) Component Value Ref Range Cryoglobulin None Detected None Detected Comment: The Cryocrit is primarily intended for following a patient with previously defined and quantitated cryoglobulins. The cryocrit may consist of cryoglobulins, fibrins, complement, or mixtures of these. If not previously characterized, consider ordering test code 37019, Cryoglobulin Screen with Reflex to Cryoglobulin Profile, Serum. REPORT COMMENT: FASTING:NO Test Performed at: [facility]/[address] [id number] CAMDEN MARRUFO MD,PHD Specimen Performing Laboratory [facility] [address] [place] [id number] from Last 3 Months
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
--- OUTSIDE RECORDS SUMMARY | 2017-04-22 18:41 | XMS REPORT | Encounter Summary ---
Author Author [facility] Organization [facility] Address Unknown Phone Unavailable Care Team Providers Care Analysis Manager Name Role Phone PCP Unavailable Reason for Visit * Reason Comments Altered mental status Neuropathy Encounter Details Date Type Department Care Team Description 03/04/2017 Telephone [facility] Juanpablo Forman MD Altered mental status; - Neurology [address] Neuropathy [address] [place] [address] [place] [address] [phone] Social History Tobacco Use Types Packs/Day Years [...]
--- OUTSIDE RECORDS SUMMARY | 2017-04-22 18:41 | XMS REPORT | Encounter Summary ---
Author Author [facility] Organization [facility] Address Unknown Phone Unavailable Care Team Providers Care Tape Edge Machine Operator Name Role Phone PCP Unavailable Encounter Details Date Type Department Care Team Description 02/04/2017 Orders Only [facility] Juanpablo Forman MD - Neurology [address] [place] [address] [place] [address] [phone] Social History Tobacco Use Types Packs/Day Years [...] Treatment Not on fileas of this encounter Results * CRYOGLOBULIN W REFLEX IMMUNOFIXATION (02/04/2017 11:33 AM) Component Value Ref Range Cryoglobulin None Detected None Detected Comment: The Cryocrit is primarily intended for following a patient with previously defined and quantitated cryoglobulins. The cryocrit may consist of cryoglobulins, fibrins, complement, or mixtures of these. If not previously characterized, consider ordering test code 13050, Cryoglobulin Screen with Reflex to Cryoglobulin Profile, Serum. REPORT COMMENT: FASTING:NO Test Performed at: [facility]/[address] [place] MARRUFO MD,PHD Specimen Performing Laboratory [facility] [address] [place] [address] in this encounter Visit Diagnoses Not on filein this encounter
--- OUTSIDE RECORDS SUMMARY | 2017-04-22 18:42 | XMS REPORT ---
Author Author RAPHAEL AMEZQUITA [facility] Address [address] [place] [address] Care Team Providers Care Board Certified Arts Therapist Name Role Phone RAPHAEL AMEZQUITA Unavailable PROBLEMS Type Condition ICD9-CM Code [id number] Code Onset Dates Condition Status SNOMED Code Problem Panic disorder F41.0 Active [id number] ALLERGIES Unknown Allergies SOCIAL HISTORY No smoking Hx information available PLAN OF CARE VITAL SIGNS MEDICATIONS Medication Instructions Dosage Frequency Start Date End Date Duration Status Xanax 1 MG Orally 3 times a day 1 tablet as needed 8h 30 days Active RESULTS No Results PROCEDURES No Known procedures IMMUNIZATIONS No Known Immunizations
--- OUTSIDE RECORDS SUMMARY | 2017-04-22 18:46 | XMS REPORT ---
Author Author DEMARCUSLEYLA [facility] Address Unknown Care Team Providers Care Paperhanger Pipe Name Role Phone LEYLA TRACY Unavailable PROBLEMS Type Condition ICD9-CM Code [id number] Code Onset Dates Condition Status SNOMED Code Problem Panic disorder F41.0 Active [id number] ALLERGIES Substance Reaction Event Type Date Status Latex Unknown Drug Allergy May, Active SOCIAL HISTORY No smoking Hx information available PLAN OF CARE Activity Details Follow Up prn Reason:IMPRESSIONS VITAL SIGNS Blood pressure systolic 142 mmHg 2016-06-13 Blood pressure diastolic 96 mmHg 2016-06-13 MEDICATIONS Medication Instructions Dosage Frequency Start Date End Date Duration Status Fosamax 5 MG Orally Once a week 1 tablet Active NovoLog 100 UNIT/ML Active Alprazolam 1 MG Orally tid, prn anxiety 1 tablet December, Active Gabapentin 800 MG Orally every 8 hours 1 tablet 8h Active Promethazine HCl 25 MG Orally every 12 hrs 1 tablet as needed 12h Active PredniSONE 10 MG Orally Once a day 1 tablet 24h Active Metoprolol Tartrate 100 MG Orally once a day 1 tablet with food 24h Active Furosemide 20 MG Orally Once a day as needed for leg swelling 1 tablet Active Oxycodone HCl 30 MG Orally every 6 hrs 1 tablet as needed 6h Active Allopurinol 100 MG Orally Once a day 2 tablet 24h Active Xanax 1 TAKE UP TO THREE TIMES A DAY NEEDED Active Restoril 15 MG Orally Once a day, hs 1 capsule at bedtime as needed May, Active RESULTS No Results PROCEDURES Procedure Date Ordered Related Diagnosis Body Site LTD ORAL EVALUATION - PROBLEM FOCUS Jun 13, 2016 PANORAMIC FILM SEE ALSO CODE 82739 Jun 13, 2016 IMMUNIZATIONS No Known Immunizations
[2017-04-22] MEDS ORDERED: FAMOTIDINE 20MG/2ML IV (PEPCID) IV STA (19:04)
[2017-04-22] MEDS ORDERED: LACTATED RINGERS 1,000 ML IV ONE (19:04)
[2017-04-22] MEDS ORDERED: ONDANSETRON 4 MG/2 ML (SDV) Z0FRAN IVP ONE (19:15)
[2017-04-22] MEDS ORDERED: ESCI10TA PO (19:22)
[2017-04-22 19:31] LABS: BASOPHILS % (AUTO) 0 % (0-10); EOSINOPHILS # (AUTO) 0.2 10^3/uL (0.0-0.3); EOSINOPHILS % (AUTO) 2 % (0-10); LYMPHOCYTES # (AUTO) 1.6 X 10^3 (1.0-4.0); LYMPHOCYTES % (AUTO) 18 % (12-44); MEAN CORPUSCULAR HEMOGLOBIN 33 PG (25-34); MEAN CORPUSCULAR HGB CONC 34 G/DL (32-36); MEAN CORPUSCULAR VOLUME 97 FL (80-99); MEAN PLATELET VOLUME 11.1 FL (7.4-10.4); MONOCYTES % (AUTO) 11 % (0-12); NEUTROPHILS # (AUTO) 5.8 X 10^3 (1.8-7.8); NEUTROPHILS % (AUTO) 68 % (42-75); PLATELET COUNT 128 10^3/uL (130-400); RED BLOOD COUNT 4.53 10^6/uL (4.35-5.85); RED CELL DISTRIBUTION WIDTH 13.6 % (10.0-14.5); WHITE BLOOD COUNT 8.6 10^3/uL (4.3-11.0)
--- NOTE | 2017-04-22 19:33 | Diagnostic Imaging Report ---
EXAM: Portable Chest. INDICATION: Nausea and abdominal discomfort. CORRELATION with a prior study from October 24, 2016. FINDINGS: Enlargement of the cardiac silhouette is unchanged from the previous examination. The central pulmonary vascularity appears unremarkable. Allowing for obscuration, overlying soft tissues related to large body habitus. There is no focal consolidation demonstrated. There is no large effusion. There is no pneumothorax. No acute osseous abnormality is evident. IMPRESSION: 1. The exam is limited by the patient's large body habitus. There is no evidence to suggest interval change compared to the previous study. There is enlargement of the cardiac silhouette without evidence of failure and the visualized portions of the lungs demonstrate no focal infiltrate or consolidation. Dictated by: Dictated on workstation # [id number]
[2017-04-22 19:43] LABS: PROTHROMBIN TIME PATIENT 12.8 SEC (12.2-14.7)
--- NOTE | 2017-04-22 19:43 | ED General ---
General Chief Complaint: Abdominal/GI Problems Stated Complaint: NAUSEOUS Nursing Triage Note: PT TO ROOM 4 PER W/C CO OF NAUSEA AND ABD DISCOMFORT STATES JUST NOT FEELING WELL. STATES MIGHT BE UTI Nursing Sepsis Screen: No Definite Risk Source of Information: Patient, Old Records, Other (MOTHER) History of Present Illness Time Seen by Provider: 19:00 Initial Comments PT ARRIVES VIA POV --REQUIRES 4-MALE ASSIST FOR TRANSFER FROM WHEELCHAIR TO ER BED. PT IS NORMALLY WHEELCHAIR BOUND BUT ABLE TO STAND FOR TRANSFERS--DUE TO OBESITY, GENERAL DEBILITY, NEUROPATHY/CHRONIC GENERALIZED PAIN COMPLAINTS. PT "JUST HASN'T FELT GOOD" FOR A COUPLE OF DAYS C/O NAUSEA AND NO APPETITE. NO VOMITING NO ABDOMINAL PAIN HAS HAD MINIMAL FOOD OR FLUID INTAKE FOR A COUPLE OF DAYS STATES HE HAS NOT TAKEN ANY OF HIS MEDICATIONS TODAY STATES HE HAS HAD A HARD TIME URINATING FOR A COUPLE OF WEEKS--DIFFICULTY STARTING, AND HAS BEEN WORSE THE LAST COUPLE OF DAYS. LAST VOID WAS EARLY THIS AM NO PAIN ON URINATION STATES HE HAS HAD UTI'S IN THE PAST AND THIS IS SIMILAR NO FEVER/SWEATS/CHILLS NO CHEST PAIN OR SHORTNESS OF BREATH HAD ROUTINE EXAM BY DR. SHAHID 1 WEEK AGO AND WAS STARTED ON EFFEXOR. HAS ONLY TAKEN FOR A COUPLE OF DAYS. PT LIVES WITH MOTHER, BUT SHE DOES NOT MONITOR PT'S MEDICATIONS, DESPITE PT'S HISTORY OF EXTENSIVE POLYSUBSTANCE ABUSE AND EXCESSIVE MEDICATION USE/ABUSE/ OVERDOSES--PT TAKES XANAX, OXYCODONE AND OXYCONTIN LAST OVERDOSE ON NARCOTICS WAS 02/25/16 AND PT REQUIRED INTUBATION PCP: DR. SHAHID NEUROLOGY: AT Allergies and Home Medications Allergies Coded Allergies: hydrocodone (Verified Allergy, Unknown, TAKES OXYCODONE AT HOME, 05/05/16) STATES IS NOT ALLERGIC TO THIS MED latex (Verified Allergy, Unknown, 05/05/16) Home Medications Albuterol Sulfate 8.5 Gm Hfa.aer.ad, 2 PUFF IH BID PRN for SHORTNESS OF BREATH, (Reported) Albuterol Sulfate 2.5 Mg/3 Ml Vial.neb, 2.5 MG IH Q4H PRN for WHEEZING, #50 Ref 0 Prescribed by: MONTSE BHAKTA on 09/28/161916 Allopurinol 100 Mg Tablet, 100 MG PO DAILY PRN for GOUT PAIN, (Reported) Alprazolam 1 Mg Tablet, 1 MG PO Q8H, (Reported) Cholecalciferol 1,000 Unit Tablet, 1,000 UNIT PO DAILY, (Reported) Escitalopram Oxalate 10 Mg Tablet, Unknown Dose PO, (Reported) Furosemide 40 Mg Tablet, 40 MG PO DAILY PRN for FLUID RETENTION, (Reported) Gabapentin 800 Mg Tablet, 800 MG PO TID, (Reported) Insulin Aspart 300 Units/3 Ml Solution, SQ SLIDING/SCALE, (Reported) Metoprolol Tartrate 100 Mg Tablet, 50 MG PO DAILY, (Reported) LAST FILLED 12/28/15 #60 Nystatin 15 Gm Powder, TP DAILY PRN for RASH, (Reported) Ondansetron 4 Mg Tab.rapdis, 4 MG PO Q4H, #10 Prescribed by: OSCAR HOPKINS on 04/22/172051 Oxycodone HCl 30 Mg Tablet, 30 MG PO Q6H PRN for PAIN, (Reported) Oxycodone HCl 80 Mg Tab.er.12h, 60 MG PO Q8H, (Reported) Prednisone 5 Mg Tablet, 10 MG PO DAILY, (Reported) TAKES 2 (5 MG) TABLETS Promethazine HCl 25 Mg Tablet, 25 MG PO Q8H PRN for NAUSEA/VOMITING, (Reported) Tofacitinib Citrate 11 Mg Tab.er.24h, 1 TAB PO DAILY, #30 (Reported) Constitutional: No chills, No diaphoresis, No dizziness, No fever, malaise, weakness EENTM: no symptoms reported Respiratory: cough (SLIGHT), No short of breath, No wheezing Cardiovascular: no symptoms reported, No chest pain, No palpitations, No syncope Gastrointestinal: see HPI, No abdominal pain, loss of appetite, nausea, No vomiting Genitourinary: see HPI, decreased output, hesitancy Musculoskeletal: other (NO SPECIFIC PAIN COMPLAINTS TODAY, BUT HAS CHRONIC GENERALIZED PAIN) Skin: no symptoms reported Psychiatric/Neurological: Denies Headache, Pre-Existing Deficit (NEUROPATHY IN LEGS/ FEET AND HANDS) Hematologic/Lymphatic: No Symptoms Reported Immunological/Allergic: no symptoms reported Past Cfrxrlj-Rffmol-Whepjl Hx Patient Social History Alcohol Use: Past History (HISTORY OF ABUSE) Recreational Drug Use: Yes (VERY EXTENSIVE HISTORY OF POLYSUBSTANCE ABUSE-- ESPECIALLY RX NARCOTIC ABUSE WITH MULTIPLE OVERDOSES, THC USE. ) Smoking Status: Current Everyday Smoker (1 08/19 PPD) Type Used: Cigarettes Former Smoker, Quit: Mar 06, 2016 2nd Hand Smoke Exposure: No Recent Foreign Travel: No Contact w/Someone Who Travel: No Recent Infectious Disease Expo: No Recent Hopitalizations: No Physical Abuse: No Sexual Abuse: No Immunizations Up To Date Tetanus Booster (TDap): Unknown PED Vaccines UTD: Yes Date of Pneumonia Vaccine: Nov 12, 2012 Seasonal Allergies Seasonal Allergies: No Surgeries History of Surgeries: Yes (BACK SURGERY-LUMBAR HERNIATED DISC; BILIARY STENT; CARDIAC CATH 2009--NORMAL; NERVE BX RIGHT LEG; SKIN GRAFTS) Surgeries: Abdominal, Cardiac, Orthopedic Respiratory History of Respiratory Disorde: Yes (TOBACCOISM; RESPIRATORY FAILURE/ON VENT MULTIPLE TIMES; HOME O2 AT 2L/NC CONTINUOUSLY) Respiratory Disorders: Pneumonia, COPD Currently Using CPAP: Yes Cardiovascular History of Cardiac Disorders: Yes (VASCULITIS; CHRONIC LEG EDEMA--MOSTLY ON RIGHT ( SIDE MORE AFFECTED BY LANCE )) Cardiac Disorders: Chronic Edema/Swelling, Hypertension, Peripheral Vascular Neurological History of Neurological Disord: Yes (MONO NEURITIS; NEUROPATHY--WHEELCHAIR BOUND) Neurological Disorders: Headaches /Migraines, Neuropathy Reproductive System Hx Reproductive Disorders: No Sexually Transmitted Disease: No HIV/AIDS: No Genitourinary History of Genitourinary Disor: Yes (BRIEFLY ON DIALYSIS IN PAST) Genitourinary Disorders: Bladder Infection, Kidney Stones, Renal Failure, Dialysis, UTI-Chronic Gastrointestinal History of Gastrointestinal Di: Yes (HEPATITIS C--NO TREATMENT. BILARY STENT) Gastrointestinal Disorders: Gastroesophageal Reflux, Hepatitis, Gall Bladder Disease Musculoskeletal History of Musculoskeletal Dis: Yes (ELEVATED URIC ACID; WEARS BRACES ON BOTH LOWER LEGS; BACK SURGERY-DISCS; CHRONIC GENERALIZED PAIN COMPLAINTS --NARCOTIC DEPENDENT; WHEELCHAIR-BOUND DUE TO OBESITY AND CHRONIC PAIN ) Musculoskeletal Disorders: Degenerate Disk Disease, Arthritis, Rheumatoid Arthritis, Chronic Back Pain Endocrine History of Endocrine Disorders: Yes (MORBID OBESITY; ELEVATED URIC ACID) Endocrine Disorders: Diabetes, Insulin dep HEENT Loss of Vision: Denies Hearing Impairment: Denies Cancer History of Cancer: No Psychosocial History of Psychiatric Problem: Yes (EXTENSIVE POLYSUBSTANCE ABUSE, ESPECIALLY RX NARCOTICS) Behavioral Health Disorders: Sleep Difficulties, Anxiety, Depression Suicide Risk Score: 0 Integumentary History of Skin or Integumenta: Yes (3RD DEGREE LANCE WITH SKIN GRAFTS TO RIGHT LOWER LEG 06/2013--FELL ASLEEP WITH LIGHTED CIGARETTE; CELLULITIS RIGHT LEG) Blood Transfusions History of Blood Disorders: No Family Medical History Significant Family History: No Pertinent Family Hx Other 09/2015--SEPTIC SHOCK WITH ACUTE RESPIRATORY FAILURE AND RENAL FAILURE-ON VENTILATOR AND DIALYSIS--HAD PNEUMONIA AND UTI Family Medial History: Alcoholism 03 FATHER Diabetes mellitus 03 FATHER Family history: Allergy 03 MOTHER Family history: Asthma 03 MOTHER Family history: Hypertension 03 FATHER 03 MOTHER Physical Exam Vital Signs Vital Sign - Last 12Hours 04/22/17 19:00 Temp 97.6 Pulse 84 Resp 18 B/P (MAP) 165/106 Pulse Ox 92 O2 Delivery Nasal Cannula O2 Flow Rate 2.00 Capillary Refill : Less Than 3 Seconds General Appearance: Obese (MORBIDLY), Other (SPEECH FAIRLY CLEAR AND NORMAL FOR PT ( NORMAL SPEECH PATTERN IS SOMEWHAT MUMBLED) DOES NOT APPEAR TO BE IN ANY DISCOMFORT OR DISTRESS, ) HEENT: PERRL/EOMI, Other (ORAL MUCOSA SLIGHTLY DRY. POOR DENTITION) Neck: Normal Inspection Respiratory: Normal Breath Sounds, No Accessory Muscle Use, No Respiratory Distress Cardiovascular: Regular Rate, Rhythm, No Murmur Gastrointestinal: Normal Bowel Sounds, Non Tender, Soft Back: No CVA Tenderness Extremity: Pedal Edema (1-2+ EDEMA BILATERALLY ( ALTHOUGH SOMEWHAT DIFFICULT DETERMINATION DUE TO BODY HABITUS) CHRONIC VENOUS STASIS CHANGES BILATERALLY-- RIGHT > LEFT, NO ACUTE CELLULITIS NOTED. SLIGHT PLANTAR FLEXION CONTRACTURES OF BOTH FEET. ) Neurologic/Psychiatric: Alert, Oriented x3, Normal Mood/Affect, Other Skin: Normal Color, Warm/Dry, Other (MULTIPLE TATTOOS, OLD/HEALED BURN SCARS TO RIGHT LEG. ) Focused Exam Evaluation Lactate Level Laboratory Tests 04/22/17 19:21: Lactic Acid Level 0.98 Lactic Acid Level Laboratory Tests Test 04/22/17 19:21 Lactic Acid Level 0.98 MMOL/L (0.50-2.00) Date of ETT Placement: Feb 25, 2016 Time of ETT Placement: 1508 Progress/Results/Core Measures Results/Orders Lab Results Laboratory Tests Test 04/22/17 19:21 04/22/17 19:36 Range/Units White Blood Count 8.6 4.3-11.0 10^3/uL Red Blood Count 4.53 4.35-5.85 10^6/uL Hemoglobin 15.1 13.3-17.7 G/DL Hematocrit 44 40-54 % Mean Corpuscular Volume 97 80-99 FL Mean Corpuscular Hemoglobin 33 25-34 PG Mean Corpuscular Hemoglobin Concent 34 32-36 G/DL Red Cell Distribution Width 13.6 10.0-14.5 % Platelet Count 128 L 130-400 10^3/uL Mean Platelet Volume 11.1 H 7.4-10.4 FL Neutrophils (%) (Auto) 68 42-75 % Lymphocytes (%) (Auto) 18 12-44 % Monocytes (%) (Auto) 11 0-12 % Eosinophils (%) (Auto) 2 0-10 % Basophils (%) (Auto) 0 0-10 % Neutrophils # (Auto) 5.8 1.8-7.8 X 10^3 Lymphocytes # (Auto) 1.6 1.0-4.0 X 10^3 Monocytes # (Auto) 1.0 0.0-1.0 X 10^3 Eosinophils # (Auto) 0.2 0.0-0.3 10^3/uL Basophils # (Auto) 0.0 0.0-0.1 10^3/uL Prothrombin Time 12.8 12.2-14.7 SEC INR Comment 1.0 0.8-1.4 Activated Partial Thromboplast Time 26 24-35 SEC Sodium Level 141 135-145 MMOL/L Potassium Level 3.9 3.6-5.0 MMOL/L Chloride Level 101 98-107 MMOL/L Carbon Dioxide Level 24 21-32 MMOL/L Anion Gap 16 H 5-14 MMOL/L Blood Urea Nitrogen 9 7-18 MG/DL Creatinine 0.81 0.60-1.30 MG/DL Estimat Glomerular Filtration Rate > 60 BUN/Creatinine Ratio 11 Glucose Level 129 H 70-105 MG/DL Lactic Acid Level 0.98 0.50-2.00 MMOL/L Calcium Level 10.8 H 8.5-10.1 MG/DL Magnesium Level 1.7 L 1.8-2.4 MG/DL Total Bilirubin 1.7 H 0.1-1.0 MG/DL Aspartate Amino Transf (AST/SGOT) 34 5-34 U/L Alanine Aminotransferase (ALT/SGPT) 43 0-55 U/L Alkaline Phosphatase 66 40-136 U/L Troponin I < 0.30 <0.30 NG/ML Total Protein 6.6 6.4-8.2 GM/DL Albumin 3.8 3.2-4.5 GM/DL Amylase Level 25 25-125 U/L TSH [place] Testing 2.56 0.35-4.94 UIU/ML Serum Alcohol < 10 <10 MG/DL Urine Color YELLOW Urine Clarity CLEAR Urine pH 8 5-9 Urine Specific [place] 1.015 L 1.016-1.022 Urine Protein 1+ H NEGATIVE Urine Glucose (UA) 1+ H NEGATIVE Urine Ketones 1+ H NEGATIVE Urine Nitrite NEGATIVE NEGATIVE Urine Bilirubin NEGATIVE NEGATIVE Urine Urobilinogen 4 H NORMAL MG/DL Urine Leukocyte Esterase NEGATIVE NEGATIVE Urine RBC (Auto) NEGATIVE NEGATIVE Urine RBC NONE /HPF Urine WBC RARE /HPF Urine Squamous Epithelial Cells 0-2 /HPF Urine Crystals NONE /LPF Urine Bacteria NONE /HPF Urine Casts NONE /LPF Urine Mucus NEGATIVE /LPF Urine Culture Indicated NO Urine Opiates Screen POSITIVE H NEGATIVE Urine Oxycodone Screen POSITIVE H NEGATIVE Urine Methadone Screen NEGATIVE NEGATIVE Urine Propoxyphene Screen NEGATIVE NEGATIVE Urine Barbiturates Screen NEGATIVE NEGATIVE Ur Tricyclic Antidepressants Screen NEGATIVE NEGATIVE Urine Phencyclidine Screen NEGATIVE NEGATIVE Urine Amphetamines Screen NEGATIVE NEGATIVE Urine Methamphetamines Screen NEGATIVE NEGATIVE Urine Benzodiazepines Screen POSITIVE H NEGATIVE Urine Cocaine Screen NEGATIVE NEGATIVE Urine Cannabinoids Screen NEGATIVE NEGATIVE My Orders Orders - SANDEEP,OSCAR K DO Saline Lock/Iv-Start (04/22/17 19:04) Ekg Tracing (04/22/17 19:04) Monitor-Rhythm Ecg Trace Only (04/22/17 19:04) Amylase (04/22/17 19:04) Cbc With Automated Diff (04/22/17 19:04) Comprehensive Metabolic Panel (04/22/17 19:04) Drug Screen Stat (Urine) (04/22/17 19:04) Magnesium (04/22/17 19:04) Protime With Inr (04/22/17 19:04) Partial Thromboplastin Time (04/22/17 19:04) Thyroid Analyzer (04/22/17 19:04) Troponin I (04/22/17 19:04) Ua Culture If Indicated (04/22/17 19:04) Chest 1 View, Ap/Pa Only (04/22/17 19:04) Saline Lock/Iv-Start (04/22/17 19:04) Lactated Ringers (Lr 1000 Ml Iv Solution (04/22/17 19:04) Ondansetron Injection (Zofran Injectio (04/22/17 19:15) Famotidine Injection (Pepcid Injection) (04/22/17 19:04) Lactic Acid Analyzer (04/22/17 19:14) Blood Culture (04/22/17 19:14) Alcohol (04/22/17 19:46) Acetaminophen Tablet (Tylenol Tablet) (04/22/17 20:30) Magnesium Oxide Tablet (Mag Ox Tablet) (04/22/17 21:00) Ibuprofen Tablet (Motrin Tablet) (04/22/17 21:00) Rx-Ondansetron Po (Rx-Zofran Po) (04/22/17 20:53) Medications Given in ED Current Medications Medications Dose Ordered Sig/Lashawn Route Start Time Stop Time Status Last Admin Dose Admin Lactated Ringer's 1,000 ml @ 0 mls/hr Q0M ONCE IV 04/22/17 19:04 04/22/17 19:07 DC 04/22/17 19:37 1,000 MLS/HR Ondansetron HCl 4 mg ONCE ONCE IVP 04/22/17 19:15 04/22/17 19:16 DC 04/22/17 19:33 4 MG Vital Signs/I&O Vital Sign - Last 12Hours 04/22/17 19:00 Temp 97.6 Pulse 84 Resp 18 B/P (MAP) 165/106 Pulse Ox 92 O2 Delivery Nasal Cannula O2 Flow Rate 2.00 Blood Pressure Mean: 125 Progress Note : Progress Note 2030--WANTING SOMETHING FOR PAIN AND HEADACHE--TYLENOL AND MOTRIN GIVEN NAUSEA GONE WITH ZOFRAN, AND STATES HE FEELS MUCH BETTER PT TOLERATING WATER PRIOR TO DISMISSAL ECG Initial ECG Impression Time: 19:41 Initial ECG Rate: 84 Initial ECG Rhythm: Normal Sinus Initial ECG Comparisson: Unchanged Diagnostic Imaging Comments CXR--NO ACUTE PROCESS, CARDIOMEGALY--PER RADIOLOGIST REPORT @ 1943 Reviewed: Reviewed by Me Departure Impression Impression: Primary Impression: Nausea alone Disposition: 01 HOME, SELF-CARE Condition: Improved Departure-Patient Inst. Referrals: GLENN SHAHID MD (PCP/Family) Primary Care Physician Patient Instructions: Nausea and Vomiting, Adult (DC) Add. Discharge Instructions: CLEAR LIQUIDS--WATER, BROTH, JELLO, GATORADE TOMORROW IF YOU ARE BETTER, ADD BRATS DIET TO CLEAR LIQUIDS--BANANAS, RICE, APPLESAUCE, TOAST, SALTINES FOLLOW UP WITH DR. SHAHID'S CLINIC THIS WEEK FOR FURTHER CARE TAKE YOUR MEDICATIONS PRESCRIBED All discharge instructions reviewed with patient and/or family. Voiced understanding. Scripts Ondansetron (Zofran Odt) 4 Mg Tab.rapdis 4 MG PO Q4H for Nausea/Vomiting, #10 TAB Prov: OSCAR HOPKINS DO 04/22/17 OSCAR HOPKINS DO Apr 22, 2017 19:43
[2017-04-22 19:59] LABS: ALANINE AMINOTRANSFERASE 43 U/L (0-55); ALBUMIN 3.8 GM/DL (3.2-4.5); AMYLASE 25 U/L (25-125); ANION GAP 16 MMOL/L (5-14); ASPARTATE AMINO TRANSFERASE 34 U/L (5-34); BILIRUBIN,TOTAL 1.7 MG/DL (0.1-1.0); BLOOD UREA NITROGEN 9 MG/DL (7-18); BUN/CREATININE RATIO 11; CALCIUM 10.8 MG/DL (8.5-10.1); CARBON DIOXIDE 24 MMOL/L (21-32); CHLORIDE 101 MMOL/L (98-107); CREATININE SERUM 0.81 MG/DL (0.60-1.30); GFR ESTIMATED > 60; GLUCOSE 129 MG/DL (70-105); MAGNESIUM 1.7 MG/DL (1.8-2.4); POTASSIUM 3.9 MMOL/L (3.6-5.0); SODIUM 141 MMOL/L (135-145); TOTAL PROTEIN 6.6 GM/DL (6.4-8.2)
[2017-04-22 20:15] LABS: BILIRUBIN,URINE NEGATIVE (NEGATIVE); KETONES,URINE 1+ (NEGATIVE); LEUKOCYTE ESTERASE ,URINE NEGATIVE (NEGATIVE); NITRITE,URINE NEGATIVE (NEGATIVE); PH,URINE 8 (5-9); PROTEIN,URINE 1+ (NEGATIVE); UROBILINOGEN,URINE 4 MG/DL (NORMAL)
[2017-04-22 20:20] LABS: TROPONIN I < 0.30 NG/ML (<0.30)
[2017-04-22 20:26] LABS: SQUAMOUS EPITHELIAL CELL,UR 0-2 /HPF; WBC,URINE RARE /HPF
[2017-04-22] MEDS ORDERED: ACETAMINOPHEN 500 MG TAB (TYLENOL) PO ONE (20:30)
[2017-04-22] MEDS ORDERED: ONDA4TAB8 PO (20:52)
[2017-04-22] MEDS ORDERED: RX-ONDANSETRON 4 MG ODT (ZOFRAN) PPK #4 PO STA (20:53)
[2017-04-22 20:58] VITALS: BP 159/99
[2017-04-22] MEDS ORDERED: MAGNESIUM OXIDE (MAG-OX)400 MG TAB PO ONE (21:00)
[2017-04-22] MEDS ORDERED: IBUPROFEN 800 MG (MOTRIN) TAB PO ONE (21:00)
[2017-04-25] MEDS ORDERED: METO-370 PO (13:10)
== END 2017-04-22 20:58 | disposition home or self-care (01) ==
LOC: EDUNIT# 18:35 → ER 18:36
DX: R11.0 Nausea (principal); E66.01 Morbid (severe) obesity due to excess calories; J44.9 Chronic obstructive pulmonary disease, unspecified; I10 Essential (primary) hypertension; I73.9 Peripheral vascular disease, unspecified; F41.9 Anxiety disorder, unspecified; F32.9 Major depressive disorder, single episode, unspecified; F19.10 Other psychoactive substance abuse, uncomplicated; F12.10 Cannabis abuse, uncomplicated; G43.909 Migraine, unspecified, not intractable, without status migrainosus; E11.40 Type 2 diabetes mellitus with diabetic neuropathy, unspecified; K21.9 Gastro-esophageal reflux disease without esophagitis; M19.90 Unspecified osteoarthritis, unspecified site; M06.9 Rheumatoid arthritis, unspecified; F17.210 Nicotine dependence, cigarettes, uncomplicated; Z87.01 Personal history of pneumonia (recurrent); Z87.442 Personal history of urinary calculi; Z87.448 Personal history of other diseases of urinary system; Z87.440 Personal history of urinary (tract) infections; Z96.0 Presence of urogenital implants; Z79.4 Long term (current) use of insulin
CPT/HCPCS: 36415; 71010; 80053; 80306; 80320; 81000; 82150; 83605; 83735; 84443; 84484; 85025; 85610; 85730; 87040; 93005; 93041; 96361; 96374; 96375

== ENCOUNTER 2017-04-24 22:10 | Inpatient (IN) | payer MEDICARE, MEDICAID ==
[~2017-04-24] VITALS: Ht 177.8 cm; Wt 132.3 kg
[~2017-04-24 22:10] MED LIST changes: +ESCI10TA PO; +ONDA4TAB8 PO
[2017-04-24] MEDS ORDERED: RT-ALBUTEROL/IPRATROPIUM 3 ML (DUONEB) VIAL ONE (22:17)
[2017-04-24] MEDS ORDERED: NS IV 500 ML 500 ML IV ONE (22:20)
[2017-04-24] MEDS ORDERED: RT-ALBUTEROL/IPRATROPIUM 3 ML (DUONEB) VIAL INH ONE (22:30)
--- NOTE | 2017-04-24 22:36 | ED General ---
General Chief Complaint: General Problems/Pain Stated Complaint: CONFUSION Source of Information: Patient Exam Limitations: No Limitations History of Present Illness Time Seen by Provider: 22:25 Initial Comments Here with report of increasing confusion over the last 12-24 hours. Patient was also noted to have decreased oxygen saturations at home. This did improve with O2 via nasal cannula at 4 L via EMS. Timing/Duration: 1-2 Days Severity: Moderate Associated Systoms: No Fever/Chills, No Nausea/Vomiting, No Shortness of Air, No Weakness Allergies and Home Medications Allergies Coded Allergies: hydrocodone (Verified Allergy, Unknown, TAKES OXYCODONE AT HOME, 05/05/16) STATES IS NOT ALLERGIC TO THIS MED latex (Verified Allergy, Unknown, 05/05/16) Home Medications Albuterol Sulfate 8.5 Gm Hfa.aer.ad, 2 PUFF IH BID PRN for SHORTNESS OF BREATH, (Reported) Albuterol Sulfate 2.5 Mg/3 Ml Vial.neb, 2.5 MG IH Q4H PRN for WHEEZING, #50 Ref 0 Prescribed by: MONTSE BHAKTA on 09/28/161916 Allopurinol 100 Mg Tablet, 100 MG PO DAILY PRN for GOUT PAIN, (Reported) Alprazolam 1 Mg Tablet, 1 MG PO Q8H, (Reported) Cholecalciferol 1,000 Unit Tablet, 1,000 UNIT PO DAILY, (Reported) Escitalopram Oxalate 10 Mg Tablet, Unknown Dose PO, (Reported) Furosemide 40 Mg Tablet, 40 MG PO DAILY PRN for FLUID RETENTION, (Reported) Gabapentin 800 Mg Tablet, 800 MG PO TID, (Reported) Insulin Aspart 300 Units/3 Ml Solution, SQ SLIDING/SCALE, (Reported) Metoprolol Tartrate 100 Mg Tablet, 50 MG PO DAILY, (Reported) LAST FILLED 12/28/15 #60 Nystatin 15 Gm Powder, TP DAILY PRN for RASH, (Reported) Ondansetron 4 Mg Tab.rapdis, 4 MG PO Q4H, #10 Prescribed by: OSCAR HOPKINS on 04/22/172051 Oxycodone HCl 30 Mg Tablet, 30 MG PO Q6H PRN for PAIN, (Reported) Oxycodone HCl 80 Mg Tab.er.12h, 60 MG PO Q8H, (Reported) Prednisone 5 Mg Tablet, 10 MG PO DAILY, (Reported) TAKES 2 (5 MG) TABLETS Promethazine HCl 25 Mg Tablet, 25 MG PO Q8H PRN for NAUSEA/VOMITING, (Reported) Tofacitinib Citrate 11 Mg Tab.er.24h, 1 TAB PO DAILY, #30 (Reported) Constitutional: see HPI, No chills, No fever EENTM: no symptoms reported Respiratory: see HPI, dyspnea on exertion, short of breath Cardiovascular: no symptoms reported Gastrointestinal: No abdominal pain, No nausea, No vomiting Genitourinary: no symptoms reported Musculoskeletal: back pain (chronic), No neck pain Skin: no symptoms reported Psychiatric/Neurological: See HPI, Weakness Hematologic/Lymphatic: No Symptoms Reported All Other Systems Reviewed Negative Unless Noted: Yes Past Rmpbeft-Tttppb-Rdskua Hx Patient Social History Alcohol Use: Denies Use Recreational Drug Use: No Smoking Status: Current Everyday Smoker Type Used: Cigarettes Former Smoker, Quit: Mar 06, 2016 2nd Hand Smoke Exposure: No Recent Hopitalizations: No Physical Abuse: No Sexual Abuse: No Mistreated: No Fear: No Immunizations Up To Date Tetanus Booster (TDap): Unknown PED Vaccines UTD: Yes Date of Pneumonia Vaccine: Nov 12, 2012 Seasonal Allergies Seasonal Allergies: No Surgeries History of Surgeries: Yes Surgeries: Abdominal, Cardiac, Orthopedic Respiratory History of Respiratory Disorde: Yes Respiratory Disorders: Pneumonia, COPD Currently Using CPAP: Yes Cardiovascular History of Cardiac Disorders: Yes Cardiac Disorders: Chronic Edema/Swelling, Hypertension, Peripheral Vascular Neurological History of Neurological Disord: Yes (MONO NEURITIS; NEUROPATHY--WHEELCHAIR BOUND) Neurological Disorders: Headaches /Migraines, Neuropathy Reproductive System Hx Reproductive Disorders: No Sexually Transmitted Disease: No HIV/AIDS: No Genitourinary History of Genitourinary Disor: Yes (BRIEFLY ON DIALYSIS IN PAST) Genitourinary Disorders: Bladder Infection, Kidney Stones, Renal Failure, Dialysis, UTI-Chronic Gastrointestinal History of Gastrointestinal Di: Yes (HEPATITIS C--NO TREATMENT. BILARY STENT) Gastrointestinal Disorders: Gastroesophageal Reflux, Hepatitis, Gall Bladder Disease Musculoskeletal History of Musculoskeletal Dis: Yes Musculoskeletal Disorders: Degenerate Disk Disease, Arthritis, Rheumatoid Arthritis, Chronic Back Pain Endocrine History of Endocrine Disorders: Yes (MORBID OBESITY; ELEVATED URIC ACID) Endocrine Disorders: Diabetes, Insulin dep HEENT Loss of Vision: Denies Hearing Impairment: Denies Cancer History of Cancer: No Psychosocial History of Psychiatric Problem: Yes (EXTENSIVE POLYSUBSTANCE ABUSE, ESPECIALLY RX NARCOTICS) Behavioral Health Disorders: Sleep Difficulties, Anxiety, Depression Suicide Risk Score: 0 Integumentary History of Skin or Integumenta: Yes Blood Transfusions History of Blood Disorders: No Family Medical History Significant Family History: No Pertinent Family Hx Family Medial History: Alcoholism 03 FATHER Diabetes mellitus 03 FATHER Family history: Allergy 03 MOTHER Family history: Asthma 03 MOTHER Family history: Hypertension 03 FATHER 03 MOTHER Physical Exam Vital Signs Vital Sign - Last 12Hours 04/24/17 04/24/17 22:11 23:44 Temp 97.4 Pulse 84 Resp 20 B/P (MAP) 143/84 Pulse Ox 85 O2 Delivery Nasal Cannula O2 Flow Rate 3.00 FiO2 50 Capillary Refill : General Appearance: WD/WN, Mild Distress (somewhat confused) HEENT: PERRL/EOMI, Pharynx Normal Neck: Non Tender, Supple Respiratory: No Accessory Muscle Use, Decreased Breath Sounds Cardiovascular: Regular Rate, Rhythm, No Murmur Gastrointestinal: Non Tender, Soft Back: Normal Inspection, No CVA Tenderness, No Vertebral Tenderness Extremity: Normal Range of Motion, Non Tender Neurologic/Psychiatric: Alert, Oriented x3 Skin: Normal Color, Warm/Dry Date of ETT Placement: Feb 25, 2016 Time of ETT Placement: 1508 Progress/Results/Core Measures Results/Orders Lab Results Laboratory Tests Test 04/24/17 22:50 04/24/17 23:17 Range/Units Blood Gas Puncture Site LEFT RADIAL Blood Gas Patient Temperature 96.9 Arterial Blood pH 7.23 *L 7.37-7.43 Arterial Blood Partial Pressure CO2 88 *H 35-45 MMHG Arterial Blood Partial Pressure O2 66 L 79-93 MMHG Arterial Blood HCO3 36 H 23-27 MMOL/L Arterial Blood Total CO2 38.7 H 21.0-31.0 MMOL/L Arterial Blood Oxygen Saturation 92 L 94-100 % Arterial Blood Base Excess 8.2 H -2.5-2.5 MMOL/L Yonathan Test POSITIVE Blood Gas Ventilator Setting NO Blood Gas Inspired Oxygen 4L White Blood Count 8.6 4.3-11.0 10^3/uL Red Blood Count 4.49 4.35-5.85 10^6/uL Hemoglobin 14.8 13.3-17.7 G/DL Hematocrit 47 40-54 % Mean Corpuscular Volume 104 H 80-99 FL Mean Corpuscular Hemoglobin 33 25-34 PG Mean Corpuscular Hemoglobin Concent 32 32-36 G/DL Red Cell Distribution Width 14.2 10.0-14.5 % Platelet Count 146 130-400 10^3/uL Mean Platelet Volume 10.7 H 7.4-10.4 FL Neutrophils (%) (Auto) 64 42-75 % Lymphocytes (%) (Auto) 24 12-44 % Monocytes (%) (Auto) 9 0-12 % Eosinophils (%) (Auto) 2 0-10 % Basophils (%) (Auto) 0 0-10 % Neutrophils # (Auto) 5.5 1.8-7.8 X 10^3 Lymphocytes # (Auto) 2.1 1.0-4.0 X 10^3 Monocytes # (Auto) 0.8 0.0-1.0 X 10^3 Eosinophils # (Auto) 0.2 0.0-0.3 10^3/uL Basophils # (Auto) 0.0 0.0-0.1 10^3/uL Prothrombin Time 12.5 12.2-14.7 SEC INR Comment 0.9 0.8-1.4 Activated Partial Thromboplast Time 24 24-35 SEC Sodium Level 142 135-145 MMOL/L Potassium Level 4.4 3.6-5.0 MMOL/L Chloride Level 102 98-107 MMOL/L Carbon Dioxide Level 34 H 21-32 MMOL/L Anion Gap 6 5-14 MMOL/L Blood Urea Nitrogen 10 7-18 MG/DL Creatinine 0.88 0.60-1.30 MG/DL Estimat Glomerular Filtration Rate > 60 BUN/Creatinine Ratio 11 Glucose Level 151 H 70-105 MG/DL Calcium Level 10.9 H 8.5-10.1 MG/DL Magnesium Level 1.9 1.8-2.4 MG/DL Total Bilirubin 0.7 0.1-1.0 MG/DL Aspartate Amino Transf (AST/SGOT) 34 5-34 U/L Alanine Aminotransferase (ALT/SGPT) 45 0-55 U/L Alkaline Phosphatase 64 40-136 U/L Ammonia 30 11-32 UMOL/L C-Reactive Protein High Sensitivity 2.53 H 0.00-0.50 MG/DL Total Protein 6.4 6.4-8.2 GM/DL Albumin 3.5 3.2-4.5 GM/DL My Orders Orders - MONTSE BHAKTA MD Arterial Blood Gas (9/7/17 22:20) Cbc With Automated Diff (04/24/17 22:20) Comprehensive Metabolic Panel (04/24/17 22:20) Hs C Reactive Protein (04/24/17 22:20) Chest 1 View, Ap/Pa Only (04/24/17 22:20) Saline Lock/Iv-Start (04/24/17 22:20) Ns Iv 500 Ml (Sodium Chloride 0.9%) (04/24/17 22:20) Albuterol/Ipra Inhalation Soln (Duoneb I (04/24/17 22:30) Svn Sm Volume Nebulizer Rt-Rfs (04/24/17 22:20) Albuterol/Ipra Inhalation Soln (Duoneb I (04/24/17 22:17) Ammonia (04/24/17 22:32) Magnesium (04/24/17 22:32) Protime With Inr (04/24/17 22:32) Partial Thromboplastin Time (04/24/17 22:32) Methylprednisolone Sod Succ (Solu-Medrol (04/24/17 23:41) Medications Given in ED Current Medications Medications Dose Ordered Sig/Lashawn Route Start Time Stop Time Status Last Admin Dose Admin Albuterol/ Ipratropium 3 ml ONCE ONCE INH 04/24/17 22:30 04/24/17 22:31 DC 04/24/17 22:36 3 ML Sodium Chloride 500 ml @ 0 mls/hr Q0M ONCE IV 04/24/17 22:20 04/24/17 22:23 DC 04/24/17 23:03 500 MLS/HR Vital Signs/I&O Vital Sign - Last 12Hours 04/24/17 04/24/17 04/24/17 22:11 22:37 23:44 Temp 97.4 Pulse 84 Resp 20 B/P (MAP) 143/84 Pulse Ox 85 94 O2 Delivery Nasal Cannula Nasal Cannula Vapotherm O2 Flow Rate 3.00 4.00 25.00 FiO2 50 Progress Note : Progress Note Seen and evaluated. IV, labs, chest x-ray and ABG ordered. Duo neb ordered. Patient placed on oxygen. O2 sats 88-92 percent on his typical. ABG noted to be significant for hypercapnic respiratory failure with mild respiratory acidosis. Vapotherm initiated. Solu-Medrol 125 mg IV ordered. I did discuss the case with Dr. Barclay 2057. She accepts patient for admission, inpatient status for hypercarbic respiratory failure. We will continue patient's current medication regimen of pain medicines that he is chronically on. Discussed admission with patient and family who agree with plan. Diagnostic Imaging Diagonstic Imaging: Xray Plain Films/CT/US/NM/MRI: chest Comments Chronic lung disease but no acute findings. Departure Communication (Admissions) Time/Spoke to Admitting Phy: 23:29 Impression Impression: Primary Impression: Acute hypercapnic respiratory failure Additional Impression: COPD (chronic obstructive pulmonary disease) Qualified Codes: J41.0 - Simple chronic bronchitis Disposition: ADMITTED INPATIENT Condition: Stable Admissions Decision to Admit Reason: Admit from ER (General) Decision to Admit/Date: Apr 24, 2017 Time/Decision to Admit Time: 23:29 Departure-Patient Inst. Referrals: GLENN SHAHID MD (PCP/Family) Primary Care Physician MONTSE BHAKTA MD Apr 24, 2017 22:36
[2017-04-24 22:59] LABS: ABG BASE EXCESS 8.2 MMOL/L (-2.5-2.5); ABG HCO3 36 MMOL/L (23-27); ABG OXYGEN SATURATION 92 % (94-100); ABG PO2 66 MMHG (79-93); ABG TCO2 38.7 MMOL/L (21.0-31.0)
[2017-04-24 23:01] LABS: ABG PCO2 88 MMHG (35-45); ABG PH 7.23 (7.37-7.43); ALLENS TEST POSITIVE; PATIENT TEMP 96.9
[2017-04-24 23:27] LABS: BASOPHILS % (AUTO) 0 % (0-10); EOSINOPHILS # (AUTO) 0.2 10^3/uL (0.0-0.3); EOSINOPHILS % (AUTO) 2 % (0-10); LYMPHOCYTES # (AUTO) 2.1 X 10^3 (1.0-4.0); LYMPHOCYTES % (AUTO) 24 % (12-44); MEAN CORPUSCULAR HEMOGLOBIN 33 PG (25-34); MEAN CORPUSCULAR HGB CONC 32 G/DL (32-36); MEAN CORPUSCULAR VOLUME 104 FL (80-99); MEAN PLATELET VOLUME 10.7 FL (7.4-10.4); MONOCYTES # (AUTO) 0.8 X 10^3 (0.0-1.0); MONOCYTES % (AUTO) 9 % (0-12); NEUTROPHILS # (AUTO) 5.5 X 10^3 (1.8-7.8); NEUTROPHILS % (AUTO) 64 % (42-75); PLATELET COUNT 146 10^3/uL (130-400); RED BLOOD COUNT 4.49 10^6/uL (4.35-5.85); RED CELL DISTRIBUTION WIDTH 14.2 % (10.0-14.5); WHITE BLOOD COUNT 8.6 10^3/uL (4.3-11.0)
[2017-04-24 23:36] LABS: INR 0.9 (0.8-1.4); PROTHROMBIN TIME PATIENT 12.5 SEC (12.2-14.7)
[2017-04-24] MEDS ORDERED: methylPREDNISolone 125 MG (Solu-MEDROL) VIAL IV STA (23:41)
[2017-04-24 23:47] LABS: ALANINE AMINOTRANSFERASE 45 U/L (0-55); ALBUMIN 3.5 GM/DL (3.2-4.5); AMMONIA 30 UMOL/L (11-32); ANION GAP 6 MMOL/L (5-14); ASPARTATE AMINO TRANSFERASE 34 U/L (5-34); BILIRUBIN,TOTAL 0.7 MG/DL (0.1-1.0); BLOOD UREA NITROGEN 10 MG/DL (7-18); BUN/CREATININE RATIO 11; CALCIUM 10.9 MG/DL (8.5-10.1); CARBON DIOXIDE 34 MMOL/L (21-32); CHLORIDE 102 MMOL/L (98-107); CREATININE SERUM 0.88 MG/DL (0.60-1.30); GFR ESTIMATED > 60; GLUCOSE 151 MG/DL (70-105); MAGNESIUM 1.9 MG/DL (1.8-2.4); POTASSIUM 4.4 MMOL/L (3.6-5.0); SODIUM 142 MMOL/L (135-145); TOTAL PROTEIN 6.4 GM/DL (6.4-8.2); hs C REACTIVE PROTEIN 2.53 MG/DL (0.00-0.50)
[2017-04-25] VITALS (16 sets, daily range): BP systolic 117–186; BP diastolic 72–123
--- OUTSIDE RECORDS SUMMARY | 2017-04-25 00:58 | XMS REPORT | Clinical Summary ---
Author Author [facility] Organization [facility] Address Unknown Phone Unavailable Care Team Providers Care Rail Switch Operator Name Role Phone PCP Unavailable Source Comments Some departments are not documenting in the electronic medical record. If you do not see the information that you expected, contact Release of Information in the Health Information Management department at [phone] for further assistance in locating additional records.[facility] Allergies Active Allergy Reactions Severity Noted Date [...] not previously characterized, consider ordering test code 48482, Cryoglobulin Screen with Reflex to Cryoglobulin Profile, Serum. REPORT COMMENT: FASTING:NO Test Performed at: [facility]/[address] [id number] CAMDEN MARRUFO MD,PHD Specimen Performing Laboratory [facility] [address] [place] [id number] from Last 3 Months
--- OUTSIDE RECORDS SUMMARY | 2017-04-25 00:58 | XMS REPORT | Encounter Summary ---
Author Author [facility] Organization [facility] Address Unknown Phone Unavailable Care Team Providers Care Hogshead Builder Name Role Phone PCP Unavailable Reason for Visit * Reason Comments FYI Encounter Details Date Type Department Care Team Description 02/20/2017 Telephone [facility] Juanpablo Forman MD FYI - Neurology [address] [place] [address] [place] [address] [phone] Social History Tobacco Use Types Packs/Day Years [...]
--- OUTSIDE RECORDS SUMMARY | 2017-04-25 00:58 | XMS REPORT | Encounter Summary ---
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 - On the condition that Dr. España and the patient's new Cardiology Manager (who he will see on March 04) [...] is currently establishing care with a new supervisor steno pool and will be seeing in February. I would like for the patient to share a copy of my note with his other doctors namely, Dr. Wright, his pain specialist, but also his newly established supervisor steno pool when he will be seeing for the [...] like him to discuss with his new supervisor steno pool whether rituximab would be an option for him, but should also check with his liver specialist, Dr. Hastings in [facility] to assess whether rituximab would be safe for his liver dysfunction with hepatitis C. As long as Dr. Hastings has no objection and his new supervisor steno pool agrees that this would help also his rheumatoid arthritis, I think rituximab would be the next option. (DOC:[id number]) To reiterate my plan on him is to consider rituximab so long as it is permissible for his hepatitis C after the patient consults with his front office secretary , Dr. España inn [place], [place], but also I have rediscussed this with his new supervisor steno pool whether rituximab make sense when it comes to his symptom of rheumatoid arthritis. I would like to see him in followup in nine months or earlier as needed. I am curious he still has cryoglobulins to contribute to his neuropathy. He needs to discuss with his front office secretary whether Harvoni is an option. As far [...] testing before his visit in nine months. (DOC:[id number]) Time spent with the patient was 60 [...]
--- OUTSIDE RECORDS SUMMARY | 2017-04-25 00:58 | XMS REPORT | Encounter Summary ---
Author Author [facility] Organization [facility] Address Unknown Phone Unavailable Care Team Providers Care Car Greaser Name Role Phone PCP Unavailable Encounter Details Date Type Department Care Team Description 02/04/2017 Orders Only [facility] Juanpablo Forman MD - Neurology [address] [place] [address] [place] [address] [phone] Social History Tobacco Use Types Packs/Day Years [...] not previously characterized, consider ordering test code 29224, Cryoglobulin Screen with Reflex to Cryoglobulin Profile, Serum. REPORT COMMENT: FASTING:NO Test Performed at: [facility]/[address] CAMDEN MARRUFO MD,PHD Specimen Performing Laboratory [facility] [address] [place] [address] in this encounter Visit Diagnoses Not on filein this encounter
--- OUTSIDE RECORDS SUMMARY | 2017-04-25 00:58 | XMS REPORT | Encounter Summary ---
Author Author [facility] Organization [facility] Address Unknown Phone Unavailable Care Team Providers Care Survey Rodman Name Role Phone PCP Unavailable Reason for Visit * Reason Comments Altered mental status Neuropathy Encounter Details Date Type Department Care Team Description 03/04/2017 Telephone [facility] Juanpablo Forman MD Altered mental status; - Neurology [address] Neuropathy [address] [place] [address] [place] [address] [phone] Social History Tobacco Use Types Packs/Day Years [...]
[2017-04-25] MEDS ORDERED: RT-ALBUTEROL SULF 2.5 MG/3 ML PRE-MIX VIAL IH PRN (03:00)
[2017-04-25 03:33] LABS: ABG BASE EXCESS 6.5 MMOL/L (-2.5-2.5); ABG HCO3 33 MMOL/L (23-27); ABG OXYGEN SATURATION 93 % (94-100); ABG PO2 66 MMHG (79-93); ABG TCO2 35.8 MMOL/L (21.0-31.0)
[2017-04-25 03:36] LABS: ABG PCO2 75 MMHG (35-45); ABG PH 7.26 (7.37-7.43); ALLENS TEST YES-POS
[2017-04-25] MEDS: NS IV 1000 ML 1,000 ML IV SCH (03:53)
[2017-04-25 05:42] LABS: BASOPHILS % (AUTO) 0 % (0-10); EOSINOPHILS # (AUTO) 0.1 10^3/uL (0.0-0.3); EOSINOPHILS % (AUTO) 1 % (0-10); LYMPHOCYTES # (AUTO) 0.6 X 10^3 (1.0-4.0); LYMPHOCYTES % (AUTO) 8 % (12-44); MEAN CORPUSCULAR HEMOGLOBIN 32 PG (25-34); MEAN CORPUSCULAR HGB CONC 31 G/DL (32-36); MEAN CORPUSCULAR VOLUME 104 FL (80-99); MEAN PLATELET VOLUME 10.9 FL (7.4-10.4); MONOCYTES # (AUTO) 0.2 X 10^3 (0.0-1.0); MONOCYTES % (AUTO) 2 % (0-12); NEUTROPHILS % (AUTO) 89 % (42-75); PLATELET COUNT 144 10^3/uL (130-400); RED BLOOD COUNT 4.63 10^6/uL (4.35-5.85); RED CELL DISTRIBUTION WIDTH 14.1 % (10.0-14.5); WHITE BLOOD COUNT 7.9 10^3/uL (4.3-11.0)
[2017-04-25 05:59] LABS: ALANINE AMINOTRANSFERASE 45 U/L (0-55); ALBUMIN 3.7 GM/DL (3.2-4.5); ANION GAP 13 MMOL/L (5-14); ASPARTATE AMINO TRANSFERASE 35 U/L (5-34); BILIRUBIN,TOTAL 0.8 MG/DL (0.1-1.0); BLOOD UREA NITROGEN 10 MG/DL (7-18); BUN/CREATININE RATIO 12; CALCIUM 11.2 MG/DL (8.5-10.1); CARBON DIOXIDE 26 MMOL/L (21-32); CHLORIDE 104 MMOL/L (98-107); CREATININE SERUM 0.86 MG/DL (0.60-1.30); GFR ESTIMATED > 60; GLUCOSE 188 MG/DL (70-105); SODIUM 143 MMOL/L (135-145); TOTAL PROTEIN 6.8 GM/DL (6.4-8.2)
[2017-04-25] MEDS ORDERED: oxyCODONE ER 40 MG (oxyCONTIN CR) TAB PO SCH ×2 (06:00→08:30)
[2017-04-25] MEDS: inSUlin (REGULAR) HUMAN 1 UNIT/0.01 ML (CHARGE PER UNIT) SC SCH ×4 (06:36→18:25)
[2017-04-25] MEDS: RT-ALBUTEROL SULF 2.5 MG/3 ML PRE-MIX VIAL IH SCH ×5 (06:38→21:53)
[2017-04-25 06:53] LABS: ABG BASE EXCESS 6.6 MMOL/L (-2.5-2.5); ABG HCO3 34 MMOL/L (23-27); ABG OXYGEN SATURATION 92 % (94-100); ABG PO2 68 MMHG (79-93); ABG TCO2 36.3 MMOL/L (21.0-31.0)
[2017-04-25 06:55] LABS: ABG PCO2 80 MMHG (35-45); ABG PH 7.24 (7.37-7.43); ALLENS TEST YES-POS; PATIENT TEMP 99.5
[2017-04-25] MEDS ORDERED: GABAPENTIN 400 MG (NEURONTIN) CAP PO SCH (06:57)
[2017-04-25] MEDS ORDERED: methylPREDNISolone 125 MG (Solu-MEDROL) VIAL IV SCH ×2 (07:20→09:00)
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
[2017-04-25] MEDS ORDERED: HALOPERIDOL 5 MG/ML (HALDOL) AMP ONE (07:46)
[2017-04-25] MEDS ORDERED: LORazepam INJ 2 MG/ML (ATIVAN) VIAL ONE (07:47)
--- NOTE | 2017-04-25 07:56 | Diagnostic Imaging Report ---
INDICATION: Altered level of consciousness. EXAMINATION: Chest, 04/24/2017. Comparison made to 04/22/2017. FINDINGS: Cardiomegaly noted with lungs limited due to patient body habitus and positioning but similar to previous imaging. There are no significant effusions. No pneumothorax. IMPRESSION: 1. Markedly limited evaluation but overall stable from previous examination. Dictated by: Dictated on workstation # [id number]
[2017-04-25] MEDS ORDERED: HALOPERIDOL 5 MG/ML (HALDOL) AMP IM PRN (08:15)
[2017-04-25] MEDS: HALOPERIDOL 5 MG/ML (HALDOL) AMP IV SCH (08:23)
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
[2017-04-25 10:05] LABS: ABG BASE EXCESS 6.4 MMOL/L (-2.5-2.5); ABG HCO3 33 MMOL/L (23-27); ABG OXYGEN SATURATION 95 % (94-100); ABG PO2 76 MMHG (79-93); ABG TCO2 34.6 MMOL/L (21.0-31.0)
[2017-04-25 10:08] LABS: ABG PCO2 71 MMHG (35-45); ABG PH 7.29 (7.37-7.43); ALLENS TEST YES-POS; PATIENT TEMP 99.9
--- NOTE | 2017-04-25 13:09 | Occ Therapy Progress Note ---
Therapy Progress Note 1305 Attempted OT evaluation but pt is getting PICC line inserted. MERRICK LIN OT Apr 25, 2017 13:09
[2017-04-25] MEDS ORDERED: PRD10T PO (13:10)
[2017-04-25] MEDS ORDERED: VENL75CA93 PO (13:10)
[2017-04-25] MEDS ORDERED: METO-272 PO (13:10)
[2017-04-25] MEDS ORDERED: GABA-490 PO (13:10)
[2017-04-25] MEDS: methylPREDNISolone 40 MG/ML (Solu-MEDROL) VIAL IV SCH ×2 (14:03→18:26)
--- NOTE | 2017-04-25 14:07 | Physical Therapy Evaluation ---
PT Evaluation-General Medical Diagnosis Admission Date Apr 24, 2017 at 23:45 Medical Diagnosis: hypercarbnic respiratory failure Onset Date: Apr 24, 2017 Therapy Diagnosis Therapy Diagnosis: weakness/debility Height/Weight Height (Feet): 5 Height (Inches): 10.00 Weight (Pounds): 280 Weight (Ounces): 0.5 Precautions Precautions/Isolations: Standard Precautions Referral Physician: Kyrie Reason for Referral: Evaluation/Treatment Medical History Pertinent Medical History: COPD, DM, HTN, Neuropathy, PVD, Renal Insufficiency , Rheumatoid Arthritis, Smoking Additional Medical History substance abuse; Hep C; short term dialysis; morbid obesity Current History ED with confusion, hypoxic Reviewed History: Yes Social History Home: Single Level Current Living Status: Other Family (mother) Entry Into Home: Ramp, Level Entry patient is non ambulatory and utilizes power chair for mobility Prior/Core FIM Prior Level of Function Functional [place] Measure 0=Not Assessed/NA 4=Minimal Assistance 1=Total Assistance 5=Supervision or Setup 2=Maximal Assistance 6=Modified [place] 3=Moderate Assistance 7=Complete [place] Bed Mobility: 3 Transfers (B,C,W/C) (FIM): 1 Gait: 0 Mother assist with all bed mobility and transfers/patient is nonambulatory and uses power chair for mobility PT Evaluation-Current Subjective Patient is currently on Bipap but awake. Pain Numeric Pain Scale: 0-No Pain Location: No Pain Reported Objective Patient Orientation: Confused Problem Solving: Poor Attachments: Oxygen (bipap), IV ROM/Strength ROM Lower Extremities bilateral LE WNL Strenght Lower Extremities severely diminished strength bilateral LE secondary to disuse grossly 2-/5 bilateral LE all planes Integumentary/Posture Integumentary refer to nursing notes Posture supine;appears functional Neuromuscular (Tone, Coordination, Reflexes) diminished due to current medical status Sensory Vision: Functional Hearing: Functional Sensation Right Lower Extremit: Impaired Sensation Left Lower Extremity: Impaired Transfers Functional [place] Measure 0=Not Assessed/NA 4=Minimal Assistance 1=Total Assistance 5=Supervision or Setup 2=Maximal Assistance 6=Modified [place] 3=Moderate Assistance 7=Complete [place] Transfers (B, C, W/C) (FIM): 1 Rollin Due to current medical status and on BiPap, patient is unsafe to actively perform EOB or OOB activity. Assessment/Needs 51 y.o. male, will benefit from skilled PT to address functional strength and to begin EOB activity. Patient is currently on BiPap and lethargic and unable to safely perform skilled tasks. PT will increase activity as patient medically improves. Rehab Potential: Guarded PT Fixed Capital Clerk Goals Fixed Capital Clerk Goals PT Fixed Capital Clerk Goals Time Frame: May 16, 2017 Transfers (B,C,W/C) (FIM): 3 PT Plan Problem List Problem List: Activity Tolerance, Functional Strength, Safety, Bed Mobility Treatment/Plan Treatment Plan: Continue Plan of Care Treatment Plan: Bed Mobility, Education, Functional Activity Adina, Functional Strength, Safety, Therapeutic Exercise, Transfers Treatment Duration: May 16, 2017 Frequency: 5 times per week Estimated Hrs Per Day: .25 hour per day Patient and/or Family Agrees t: Yes Time/GCodes Time In: 1330 Time Out: 1340 Total Billed Treatment Time: 10 Total Billed Treatment 1 visit EVLowC 10 min ALEKSANDR BRUNO PT Apr 25, 2017 14:07
[2017-04-25] MEDS ORDERED: INSU100I29 SC (14:27)
[2017-04-25] MEDS ORDERED: ONDA4TAB8 PO (14:27)
[2017-04-25] MEDS ORDERED: INSU100I23 SC (14:27)
[2017-04-25] MEDS ORDERED: GABA800T2 PO (14:27)
--- NOTE | 2017-04-25 15:34 | Occupational Therapy Eval ---
OT Evaluation-General/PLF Medical Diagnosis Admission Date Apr 24, 2017 at 23:45 Medical Diagnosis: hypercarbnic respiratory failure Onset Date: Apr 24, 2017 Therapy Diagnosis Therapy Diagnosis: decr self care, decr funct mobility Height/Weight Height (Feet): 5 Height (Inches): 10.00 Weight (Pounds): 280 Weight (Ounces): 0.5 Precautions Precautions/Isolations: Standard Precautions Safety Interventions: None Referral Physician: Kyrie Referral Reason: Evaluation/Treatment Medical History Pertinent Medical History: COPD, DM, HTN, Neuropathy, PVD, Renal Insufficiency , Rheumatoid Arthritis, Smoking Additional Medical History Mononeuritis multiplex, vasculitis. Headaches/migraines. Dialysis at one point. Hep C. DJD, chronic back pain. Morbid obesity. Anxiety, depression. Polysubstance abuse Current History Admitted through ED with increased confusion 24-24 hours. Acute respiratory failure, COPD, bronchitis Reviewed History: Yes Social History Home: Single Level Current Living Status: Other Family (mother) Entry Into Home: Ramp, Level Entry ADL-Prior Level of Function ADL PLOF Comments Pt was not responsive so PFS obtained through his mother. He lives with her and is independent with his basic ADLs except for help with wiping after toileting and help getting AFOs on with shoes. He gets around in the house in his power chair and uses a w/c for community mobility. He does not use AD for feeding or writing. He generally sponge bathes and uses large bathtub at his sister's house. He does not work outside the home and watches TV or movies. OT Current Status Subjective Pt is not responsive so information obtained from his mother. She reported that he is in chronic pain Appearance Asleep, on vent Mental Status/Objective Attachments: Central Line, Montoya Catheter, IV, Telemetry Current Upper Extremity ROM Not tested Upper Extremity Strength Not tested ADL-Treatment ADL-Current Pt needs total care at this time Functional [place] Measure 0=Not Assessed/NA 4=Minimal Assistance 1=Total Assistance 5=Supervision or Setup 2=Maximal Assistance 6=Modified [place] 3=Moderate Assistance 7=Complete IndependenceIRFPAI Quality Coding Scale 6 Independent with activity with or without an assistive device 5 Patient requires set up or clean up by helper. Patient completes activity by themselves 4 Supervision or touching assist (CGA). Hiko provide cues , steadying assist 3 The helper provides less than half the effort to complete the activity 2 The helper provides more than half the effort to complete the activity 1 Dependent. The helper does all the effort to complete an activity 7 Patient refused to complete or attempt activity 9 The patient did not perform the activity before the current illness or injury 88 Not attempted due to Medical conditions or safety concerns Education OT Patient Education: Purpose of tx/functional activities, Rehab process Teaching Recipient: Family (mother) Teaching Methods: Discussion Response to Teaching: Verbalize Understanding OT Fdc Goals Rn Pool Goals Time Frame: May 09, 2017 Eating (FIM): 6 Grooming(FIM): 6 Upper Body Dressing(FIM): 5 Lower Body Dressing(FIM): 3 Toileting(FIM): 3 Toilet/Commode Transfer(FIM): 3 Additional Goals: 2-Verbalize Understanding, 3-ImproveStrength/Adina 1=Demonstrate adherence to instructed precautions during ADL tasks. 2=Patient will verbalize/demonstrate understanding of assistive devices/ modifications for ADL. 3=Patient will improve strength/tolerance for activity to enable patient to perform ADL's. OT Education/Plan Problem List/Assessment Assessment: Decreased Activ Tolerance, Decreased UE Strength, Dependent Transfers, Impaired Bed Mobility, Impaired Self-Care Skills Pt would benefit from skilled OT to increase his independence in basic self care to allow him to safely return home to live with family and to decrease caregiver burden. Discharge Recommendations Plan/Recommendations: Continue POC Treatment Plan/Plan of Care Treatment,Training & Education: Yes Patient would benefit from OT for education, treatment and training to promote independence in ADL's, mobility, safety and/or upper extremity function for ADL' s. Plan of Care: ADL Retraining, Functional Mobility, UE Funct Exercise/Act, UE Neuromus Re-Ed/Coord Treatment Duration: May 09, 2017 Frequency: 5 times per week Estimated Hrs Per Day: .5 hour per day Agreement: Yes (mother) Rehab Potential: Guarded Time/GCodes Start Time: 15:15 Stop Time: 15:27 Total Time Billed (hr/min): 12 Billed Treatment Time visit, 12 minutes evaluation moderate intensity MERRICK LIN OT Apr 25, 2017 15:34
[2017-04-25] MEDS: ENOXAPARIN 40 MG/0.4 ML (LOVENOX) SYR SC SCH (16:40)
[2017-04-25] MEDS: morphine INJ 4 MG/ML 1 ML (VIAL/SYRINGE) IVP PRN ×2 (17:16→20:34)
[2017-04-25] MEDS: GABAPENTIN 400 MG (NEURONTIN) CAP PO SCH (20:35)
[2017-04-25] MEDS: inSUlin DETERMIR 1 UNIT/0.01 ML (LEVEMIR) CHARGE PER UNIT SQ SCH (20:46)
[2017-04-25] MEDS ORDERED: INSULIN DETEMIR 15 UNIT SC SCH (21:00)
[2017-04-25] MEDS ORDERED: NON-FORMULARY MEDICATION 1 EA EA (Gabapentin 800 MG) PO SCH (21:00)
[2017-04-25] MEDS: LORazepam INJ 2 MG/ML (ATIVAN) VIAL IVP PRN (21:51)
[2017-04-25] MEDS ORDERED: meTOprolol 5 MG/5 ML (LOPRESSOR) VIAL ONE (22:41)
[2017-04-25] MEDS ORDERED: FUROSEMIDE 40 MG/4 ML INJ (LASIX) ONE (22:41)
[2017-04-25] MEDS ORDERED: meTOprolol 5 MG/5 ML (LOPRESSOR) VIAL IV ONE (23:15)
[2017-04-25] MEDS ORDERED: FUROSEMIDE 40 MG/4 ML INJ (LASIX) IV ONE (23:15)
[2017-04-26] VITALS (22 sets, daily range): BP systolic 129–181; BP diastolic 55–109
[2017-04-26] MEDS: methylPREDNISolone 40 MG/ML (Solu-MEDROL) VIAL IV SCH ×4 (00:36→18:10)
[2017-04-26] MEDS: inSUlin (REGULAR) HUMAN 1 UNIT/0.01 ML (CHARGE PER UNIT) SC SCH ×2 (00:36→06:40)
[2017-04-26] MEDS: NS IV 1000 ML 1,000 ML IV SCH (00:41)
[2017-04-26] MEDS: RT-ALBUTEROL SULF 2.5 MG/3 ML PRE-MIX VIAL IH SCH ×5 (02:24→21:50)
[2017-04-26] MEDS: morphine INJ 4 MG/ML 1 ML (VIAL/SYRINGE) IVP PRN ×2 (02:46→15:09)
[2017-04-26] MEDS: LORazepam INJ 2 MG/ML (ATIVAN) VIAL IVP PRN (04:13)
[2017-04-26 05:17] LABS: BASOPHILS % (AUTO) 0 % (0-10); EOSINOPHILS % (AUTO) 0 % (0-10); LYMPHOCYTES # (AUTO) 0.5 X 10^3 (1.0-4.0); LYMPHOCYTES % (AUTO) 4 % (12-44); MEAN CORPUSCULAR HEMOGLOBIN 33 PG (25-34); MEAN CORPUSCULAR HGB CONC 33 G/DL (32-36); MEAN CORPUSCULAR VOLUME 100 FL (80-99); MEAN PLATELET VOLUME 11.1 FL (7.4-10.4); MONOCYTES # (AUTO) 0.5 X 10^3 (0.0-1.0); MONOCYTES % (AUTO) 4 % (0-12); NEUTROPHILS # (AUTO) 10.8 X 10^3 (1.8-7.8); NEUTROPHILS % (AUTO) 92 % (42-75); PLATELET COUNT 156 10^3/uL (130-400); RED BLOOD COUNT 4.31 10^6/uL (4.35-5.85); RED CELL DISTRIBUTION WIDTH 13.4 % (10.0-14.5); WHITE BLOOD COUNT 11.7 10^3/uL (4.3-11.0)
[2017-04-26 05:32] LABS: ALANINE AMINOTRANSFERASE 35 U/L (0-55); ALBUMIN 3.5 GM/DL (3.2-4.5); ANION GAP 11 MMOL/L (5-14); ASPARTATE AMINO TRANSFERASE 21 U/L (5-34); BILIRUBIN,TOTAL 0.9 MG/DL (0.1-1.0); BLOOD UREA NITROGEN 17 MG/DL (7-18); BUN/CREATININE RATIO 18; CARBON DIOXIDE 31 MMOL/L (21-32); CHLORIDE 102 MMOL/L (98-107); CREATININE SERUM 0.96 MG/DL (0.60-1.30); GFR ESTIMATED > 60; GLUCOSE 241 MG/DL (70-105); MAGNESIUM 1.7 MG/DL (1.8-2.4); POTASSIUM 3.8 MMOL/L (3.6-5.0); SODIUM 144 MMOL/L (135-145); TOTAL PROTEIN 6.3 GM/DL (6.4-8.2)
[2017-04-26] MEDS: POTASSIUM CL 10MEQ/50ML IVPB 50 ML IV SCH (06:31)
[2017-04-26] MEDS: KCL 20 MEQ TAB (K-DUR) PO SCH (06:31)
[2017-04-26] MEDS: MAGNESIUM 1 GM/100 ML IVPB 100 ML IV SCH ×3 (06:32→09:29)
--- NOTE | 2017-04-26 08:06 | Progress Note-Hospitalist ---
Subjective HPI/CC On Admission Date Seen by Provider: Apr 26, 2017 Time Seen by Provider: 07:30 CC: Feeling sick HPI: Pt. is a 51yoCm with a PMH of mononeuritis multiplex, COPD, unknown vasculitis, Hep c, IDDMII who presented to the ER with CC of feeling sick and hallucinating. He is unable to provide me any history at this time and is on BiPAP. His family is at bedside who provided most of history though limited. Mom states a feel days ago he started to feel poorly without any specific complaints. He then started to hallucinate and was confused. This has happened in the past but mom is unsure of what has previously caused hallucinations. EMS was called and he was found to be hypoxic. Per ER note he was given oxygen and improved somewhat. He was found to have hypercarbic respiratory failure on arrival. He worsened overnight and was started on BiPAP. This morning he become very agitated necessitating Ativan and Haldol to cooperate with BiPAP treatment. Mom who is at bedside states he has COPD but rarely uses an inhaler. He also is unable to walk as well at baseline. Subjective/Events-last exam Much improved from yesterday. Off BiPAP and on NC via 3lpm most of the night. per mom does wear oxygen nightly at home. He reports feeling better though seems somewhat confused (asking if he is wearing women's underwear) and complains of catheter discomfort. Otherwise denies complaints. Would like to drink. Objective Exam Vital Signs Vital Sign - Last 12Hours 04/24/17 04/24/17 22:11 23:44 Temp 97.4 Pulse 84 Resp 20 B/P (MAP) 143/84 Pulse Ox 85 O2 Delivery Nasal Cannula O2 Flow Rate 3.00 FiO2 50 Capillary Refill : Less Than 3 Seconds General Appearance: Obese, Other (confused, pulling at catheter) Respiratory: Chest Non Tender, No Accessory Muscle Use, Other (clear in apices and otherwise difficult to auscultate breath sounds due ot body habitus) Cardiovascular: Regular Rate, Rhythm, No Murmur Neurologic/Psychiatric: Alert, Other (oriented to self and place- unaware of situation) Results/Procedures Lab Laboratory Tests 04/26/17 04:39 Assessment/Plan Assessment and Plan Assess & Plan/Chief Complaint Acute exacerbation of COPD Diagnosis/Problems Diagnosis/Problems (1) Acute respiratory failure Status: Acute Assessment & Plan: Improved since yesterday, now off BiPAP Pulm consulted appreciate recs Likely has obesity hypoventilation syndrome complicating picture as well Continue on Steroids Will resume home lasix- attempt for net negative I/Os Qualifiers: Qualified Codes: J96.02 - Acute respiratory failure with hypercapnia (2) COPD exacerbation Status: Acute Assessment & Plan: Continue on steroids per Pulm (dose decreased) Continue MAT Protocol Continue Duonebs prn and scheduled Does not use inhaler at home- will likely need at DC along with education on use (3) Diabetes mellitus Status: Chronic Assessment & Plan: Blood sugars elevated overnight- likely due to steroids Will resume home sliding scale Continue SSI B Qualifiers: Qualified Codes: E11.49 - Type 2 diabetes mellitus with other diabetic neurological complication; 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 (4) Agitation Assessment & Plan: Remains confused but less agitated Ativan and Haldol added per Pulm (5) Hypercalcemia Status: Chronic Assessment & Plan: Mild at 11.2 Reviewing labs over last few years shows to be chronic Awaiting results of ionized Ca, PTH, and JEROMY-I level (6) Mononeuritis multiplex Status: Chronic Assessment & Plan: per report of mom unable to walk due to this Will consult PT/OT (7) Hepatitis C Status: Chronic Assessment & Plan: Reportedly cured, family unsure though (8) Prophylactic measure Assessment & Plan: Lovenox for DVT ppx Saline Lock Carb Controlled Diet SUSAN SOSA MD Apr 26, 2017 08:06
--- NOTE | 2017-04-26 08:14 | Diagnostic Imaging Report ---
EXAM: CHEST 1 VIEW, AP/PA ONLY INDICATION: Dyspnea. COMPARISON: Chest radiograph 04/24/2017. FINDINGS: Low lung volumes and body habitus limit the evaluation. Persistent cardiomegaly. No new dense consolidation, pleural effusion or pneumothorax identified. Osseous structures are unremarkable. IMPRESSION: Stable, limited exam. Cardiomegaly. Dictated by: Dictated on workstation # [id number]
[2017-04-26] MEDS ORDERED: ALPRAZolam 1 MG (XANAX) TAB PO PRN (08:30)
[2017-04-26] MEDS: meTOproloL SUCCINATE 50 MG (TOPROL XL) TAB PO SCH (08:36)
[2017-04-26] MEDS: GABAPENTIN 400 MG (NEURONTIN) CAP PO SCH ×3 (08:37→20:53)
[2017-04-26] MEDS: VENlafaxine XR 75 MG (EFFEXOR XR) CAP PO SCH (08:40)
[2017-04-26] MEDS: HALOPERIDOL 5 MG/ML (HALDOL) AMP IV SCH (08:41)
[2017-04-26] MEDS ORDERED: SODIUM PHOSPHATE INJ 40 MM in NS (IVPB) 250 ML INJ ONE (09:00)
[2017-04-26 10:05] LABS: CALCIUM IONIZED 1.5 mmol/L (1.16-1.32); CORRECTED IONIZED CALCIUM 1.43 mmol/L (1.16-1.32)
[2017-04-26] MEDS: POTASSIUM CL 10 MEQ/50 ML IVPB (PRE-MIX) IV SCH ×2 (12:32→13:36)
[2017-04-26] MEDS: inSUlin ASPART (NovoLOG) 1 UNIT/0.01 ML (CHARGE PER UNIT) SC SCH ×3 (15:42→20:52)
[2017-04-26] MEDS: ENOXAPARIN 40 MG/0.4 ML (LOVENOX) SYR SC SCH (18:10)
--- NOTE | 2017-04-26 18:43 | Pulmonary Progress Note ---
Subjective Time Seen by Provider: 18:44 Subjective/Events-last exam PT is now improved. No complications noted. Exam Exam Vital Signs Date Time Temp Pulse Resp B/P (MAP) Pulse Ox O2 Delivery O2 Flow Rate FiO2 04/26/17 18:00 84 23 171/90 91 Nasal Cannula 3.00 04/26/17 17:00 106 22 155/94 Nasal Cannula 3.00 04/26/17 16:00 95 Nasal Cannula 3.00 04/26/17 16:00 87 22 159/91 Nasal Cannula 3.00 04/26/17 15:00 98 22 Nasal Cannula 3.00 04/26/17 14:40 93 Nasal Cannula 3.00 04/26/17 14:00 83 21 180/97 98 Nasal Cannula 3.00 04/26/17 13:00 102 25 154/101 98 Nasal Cannula 3.00 04/26/17 13:00 103 04/26/17 12:07 95 Nasal Cannula 3.00 04/26/17 12:00 99.6 04/26/17 12:00 91 18 Nasal Cannula 3.00 04/26/17 11:00 90 18 132/78 95 Nasal Cannula 3.00 04/26/17 10:54 92 Nasal Cannula 3.00 04/26/17 10:00 85 23 156/85 96 Nasal Cannula 3.00 04/26/17 09:00 103 26 179/109 95 Nasal Cannula 3.00 04/26/17 08:15 95 Nasal Cannula 3.00 04/26/17 08:00 99.2 04/26/17 08:00 93 18 171/103 93 Nasal Cannula 3.00 04/26/17 07:00 122 26 168/55 99 Nasal Cannula 3.00 04/26/17 07:00 102 04/26/17 06:59 96 Nasal Cannula 3.00 04/26/17 06:00 83 14 155/102 92 Nasal Cannula 3.00 04/26/17 05:00 93 21 158/88 94 Nasal Cannula 3.00 04/26/17 04:15 84 24 163/103 92 Nasal Cannula 3.00 04/26/17 04:00 95 Nasal Cannula 3.00 04/26/17 04:00 99.6 04/26/17 03:00 89 24 150/94 92 Nasal Cannula 3.00 04/26/17 02:36 Nasal Cannula 3.00 04/26/17 02:24 100 23 95 45.00 04/26/17 02:00 87 14 129/93 94 NIV Bilevel 45.00 04/26/17 01:20 85 04/26/17 01:00 84 14 148/77 94 NIV Bilevel 45.00 04/26/17 00:00 95 NIV Bilevel 40 04/26/17 00:00 99.8 04/26/17 00:00 99 12 144/89 94 NIV Bilevel 45.00 04/25/17 23:00 103 20 138/98 93 NIV Bilevel 45.00 04/25/17 22:05 NIV Bilevel 40.00 04/25/17 22:00 NIV Bilevel 45.00 04/25/17 22:00 106 8 183/123 98 NIV Bilevel 45.00 04/25/17 21:53 98 15 96 45.00 04/25/17 21:00 107 15 167/108 97 NIV Bilevel 04/25/17 20:00 95 NIV Bilevel 45 04/25/17 20:00 114 13 153/105 98 NIV Bilevel 04/25/17 20:00 99.7 04/25/17 19:13 115 04/25/17 19:00 116 10 186/115 99 NIV Bilevel 04/25/17 18:49 93 14 96 50.00 I & O 04/27/17 07:00 Intake Total 1073.3333 ml Output Total 590 ml Balance 483.3333 ml General Appearance: Obese, Other (confused, pulling at catheter) HEENT: PERRL/EOMI, Pharynx Normal Neck: Non Tender, Supple Respiratory: Chest Non Tender, No Accessory Muscle Use, Decreased Breath Sounds Cardiovascular: Regular Rate, Rhythm, No Murmur Capillary Refill: Less Than 3 Seconds Extremity: Normal Range of Motion, Non Tender Neurologic/Psychiatric: Alert, Other (oriented to self and place- unaware of situation) Skin: Normal Color, Warm/Dry Results Lab Laboratory Tests 04/24/17 23:17 04/25/17 05:21 04/26/17 04:39 Assessment/Plan Assessment/Plan Acute on chronic respiratory failure - improving -PT is now only requiring 3 liter NC -BiPAP QHS and PRN Acute psychosis -- improved -D/C scheduled haldol (will keep PRN dosing) -Start 0.5mg Risperdal BID COPDAE -SVNS Q 4 -Solumedrol change to 40 IV Q 6 Morbid obesity with hypoventilation syndrome PT will benefit from vent to mask as out patient. Will arrange with DME once pt is more stable and prior to discharge. Chronic pain with hx of polysubstance abuse 233 Clinical Quality Measures DVT/VTE Risk/Contraindication: Risk Factor Score Per Nursin RFS Level Per Nursing on Admit: 4+=Very High ARLEN PEGUERO DO Apr 26, 2017 18:43
[2017-04-26] MEDS: inSUlin DETERMIR 1 UNIT/0.01 ML (LEVEMIR) CHARGE PER UNIT SQ SCH (20:52)
[2017-04-26] MEDS: oxyCODONE ER 40 MG (oxyCONTIN CR) TAB PO SCH (20:52)
[2017-04-26] MEDS: risperiDONE 0.25 MG (RisperDAL) TAB PO SCH (20:53)
[2017-04-27] VITALS (13 sets, daily range): BP systolic 124–176; BP diastolic 78–107
[2017-04-27] MEDS: methylPREDNISolone 40 MG/ML (Solu-MEDROL) VIAL IV SCH ×5 (00:33→23:52)
[2017-04-27] MEDS: RT-ALBUTEROL SULF 2.5 MG/3 ML PRE-MIX VIAL IH SCH ×6 (01:54→22:39)
[2017-04-27 04:56] LABS: BASOPHILS % (AUTO) 0 % (0-10); EOSINOPHILS % (AUTO) 0 % (0-10); LYMPHOCYTES # (AUTO) 0.4 X 10^3 (1.0-4.0); LYMPHOCYTES % (AUTO) 4 % (12-44); MEAN CORPUSCULAR HEMOGLOBIN 33 PG (25-34); MEAN CORPUSCULAR HGB CONC 34 G/DL (32-36); MEAN CORPUSCULAR VOLUME 99 FL (80-99); MEAN PLATELET VOLUME 10.7 FL (7.4-10.4); MONOCYTES # (AUTO) 0.6 X 10^3 (0.0-1.0); MONOCYTES % (AUTO) 5 % (0-12); NEUTROPHILS # (AUTO) 10.9 X 10^3 (1.8-7.8); NEUTROPHILS % (AUTO) 91 % (42-75); PLATELET COUNT 150 10^3/uL (130-400); RED BLOOD COUNT 4.18 10^6/uL (4.35-5.85); RED CELL DISTRIBUTION WIDTH 13.7 % (10.0-14.5)
[2017-04-27 05:16] LABS: ANION GAP 13 MMOL/L (5-14); BLOOD UREA NITROGEN 23 MG/DL (7-18); BUN/CREATININE RATIO 25; CALCIUM 10.3 MG/DL (8.5-10.1); CARBON DIOXIDE 26 MMOL/L (21-32); CHLORIDE 103 MMOL/L (98-107); CREATININE SERUM 0.92 MG/DL (0.60-1.30); GFR ESTIMATED > 60; GLUCOSE 215 MG/DL (70-105); MAGNESIUM 2.1 MG/DL (1.8-2.4); PHOSPHORUS 1.9 MG/DL (2.3-4.7); POTASSIUM 4.1 MMOL/L (3.6-5.0); SODIUM 142 MMOL/L (135-145)
[2017-04-27] MEDS: MAGNESIUM 1 GM/100 ML IVPB 100 ML IV SCH (07:03)
[2017-04-27] MEDS: KCL 20 MEQ TAB (K-DUR) PO SCH (07:03)
[2017-04-27] MEDS: POTASSIUM CL 10MEQ/50ML IVPB 50 ML IV SCH (07:03)
--- NOTE | 2017-04-27 07:04 | Pulmonary Progress Note ---
Subjective Time Seen by Provider: 11:56 Subjective/Events-last exam No complications noted. Exam Exam Vital Signs Date Time Temp Pulse Resp B/P (MAP) Pulse Ox O2 Delivery O2 Flow Rate FiO2 04/27/17 06:24 94 Nasal Cannula 4.00 04/27/17 06:00 73 35 150/85 94 Nasal Cannula 2.50 04/27/17 05:00 73 15 157/92 95 Nasal Cannula 2.50 04/27/17 04:08 97.9 04/27/17 04:00 94 Nasal Cannula 2.50 04/27/17 04:00 75 20 151/91 93 Nasal Cannula 2.50 04/27/17 03:00 80 15 141/88 94 Nasal Cannula 2.50 04/27/17 02:00 79 14 141/92 94 Nasal Cannula 2.50 04/27/17 01:54 94 Nasal Cannula 4.00 04/27/17 01:00 84 04/27/17 01:00 84 18 145/84 94 Nasal Cannula 2.50 04/27/17 00:27 99.6 04/27/17 00:00 93 Nasal Cannula 2.50 04/27/17 00:00 80 14 176/95 95 Nasal Cannula 2.50 04/26/17 23:00 99.9 78 15 96 Nasal Cannula 2.50 04/26/17 22:00 96 35 174/84 95 Nasal Cannula 2.50 04/26/17 21:51 95 Nasal Cannula 4.00 04/26/17 21:00 85 23 181/98 92 Nasal Cannula 2.50 04/26/17 20:00 94 Nasal Cannula 2.50 04/26/17 20:00 86 18 151/89 92 Nasal Cannula 2.50 04/26/17 19:30 99.9 89 20 157/84 93 Nasal Cannula 2.50 04/26/17 19:00 90 04/26/17 19:00 90 18 157/84 93 Nasal Cannula 2.50 04/26/17 18:54 94 Nasal Cannula 3.00 04/26/17 18:00 84 23 171/90 91 Nasal Cannula 3.00 04/26/17 17:00 106 22 155/94 Nasal Cannula 3.00 04/26/17 16:00 95 Nasal Cannula 3.00 04/26/17 16:00 87 22 159/91 Nasal Cannula 3.00 04/26/17 15:00 98 22 Nasal Cannula 3.00 04/26/17 14:40 93 Nasal Cannula 3.00 04/26/17 14:00 83 21 180/97 98 Nasal Cannula 3.00 04/26/17 13:00 102 25 154/101 98 Nasal Cannula 3.00 04/26/17 13:00 103 04/26/17 12:07 95 Nasal Cannula 3.00 04/26/17 12:00 99.6 04/26/17 12:00 91 18 Nasal Cannula 3.00 04/26/17 11:00 90 18 132/78 95 Nasal Cannula 3.00 04/26/17 10:54 92 Nasal Cannula 3.00 04/26/17 10:00 85 23 156/85 96 Nasal Cannula 3.00 04/26/17 09:00 103 26 179/109 95 Nasal Cannula 3.00 04/26/17 08:15 95 Nasal Cannula 3.00 04/26/17 08:00 99.2 04/26/17 08:00 93 18 171/103 93 Nasal Cannula 3.00 General Appearance: No Apparent Distress, Obese, Other (confused, pulling at catheter) HEENT: PERRL/EOMI, Pharynx Normal Neck: Non Tender, Supple Respiratory: Chest Non Tender, No Accessory Muscle Use, Decreased Breath Sounds Cardiovascular: Regular Rate, Rhythm, No Murmur Capillary Refill: Less Than 3 Seconds Extremity: Normal Range of Motion, Non Tender Neurologic/Psychiatric: Alert, Other (oriented to self and place- unaware of situation) Skin: Normal Color, Warm/Dry Results Lab Laboratory Tests 04/26/17 04:39 04/27/17 04:20 Assessment/Plan Assessment/Plan Acute on chronic respiratory failure - improving -PT is now only requiring 3 liter NC -BiPAP QHS and PRN Acute psychosis -- improved - COPDAE -SVNS Q 4 -Solumedrol change to 40 IV Q 6 -- change to Q 12 Morbid obesity with hypoventilation syndrome PT will benefit from vent to mask as out patient. Will arrange with DME. Chronic pain with hx of polysubstance abuse 232 Clinical Quality Measures DVT/VTE Risk/Contraindication: Risk Factor Score Per Nursin RFS Level Per Nursing on Admit: 4+=Very High ARLEN PEGUERO DO Apr 27, 2017 07:04
[2017-04-27] MEDS: inSUlin ASPART (NovoLOG) 1 UNIT/0.01 ML (CHARGE PER UNIT) SC SCH ×4 (07:11→21:44)
[2017-04-27] MEDS: GABAPENTIN 400 MG (NEURONTIN) CAP PO SCH ×3 (08:13→20:17)
[2017-04-27] MEDS: oxyCODONE ER 40 MG (oxyCONTIN CR) TAB PO SCH ×3 (08:13→23:52)
[2017-04-27] MEDS: meTOproloL SUCCINATE 50 MG (TOPROL XL) TAB PO SCH (08:14)
[2017-04-27] MEDS: VENlafaxine XR 75 MG (EFFEXOR XR) CAP PO SCH (08:16)
[2017-04-27] MEDS: risperiDONE 0.25 MG (RisperDAL) TAB PO SCH ×2 (08:17→20:17)
--- NOTE | 2017-04-27 09:39 | Diagnostic Imaging Report ---
INDICATION: Dyspnea. Comparison with 04/26/2017. FINDINGS: There continues to be cardiomegaly. There has been development of some atelectasis in the left lung base since previous exam. Left upper lung and right lung remain clear. IMPRESSION: Cardiomegaly with development of left lower lobe atelectasis. Dictated by: Dictated on workstation # [id number]
--- NOTE | 2017-04-27 09:48 | Progress Note-Hospitalist ---
Subjective HPI/CC On Admission Date Seen by Provider: Apr 27, 2017 Time Seen by Provider: 09:05 CC: Feeling sick HPI: Pt. is a 51yoCm with a PMH of mononeuritis multiplex, COPD, unknown vasculitis, Hep c, IDDMII who presented to the ER with CC of feeling sick and hallucinating. He is unable to provide me any history at this time and is on BiPAP. His family is at bedside who provided most of history though limited. Mom states a feel days ago he started to feel poorly without any specific complaints. He then started to hallucinate and was confused. This has happened in the past but mom is unsure of what has previously caused hallucinations. EMS was called and he was found to be hypoxic. Per ER note he was given oxygen and improved somewhat. He was found to have hypercarbic respiratory failure on arrival. He worsened overnight and was started on BiPAP. This morning he become very agitated necessitating Ativan and Haldol to cooperate with BiPAP treatment. Mom who is at bedside states he has COPD but rarely uses an inhaler. He also is unable to walk as well at baseline. Subjective/Events-last exam Pt reports feeling much better. Breathing better, not feeling as weak. Agreeable with catheter removal. Objective Exam Vital Signs Vital Sign - Last 12Hours 04/24/17 04/24/17 22:11 23:44 Temp 97.4 Pulse 84 Resp 20 B/P (MAP) 143/84 Pulse Ox 85 O2 Delivery Nasal Cannula O2 Flow Rate 3.00 FiO2 50 Capillary Refill : Less Than 3 Seconds General Appearance: No Apparent Distress, Obese Respiratory: Lungs Clear, Normal Breath Sounds, No Respiratory Distress Cardiovascular: Regular Rate, Rhythm, No JVD, No Murmur Extremity: No Calf Tenderness, No Pedal Edema Neurologic/Psychiatric: Alert, Oriented x3 Results/Procedures Lab Laboratory Tests 04/27/17 04:20 Assessment/Plan Assessment and Plan Assess & Plan/Chief Complaint Acute exacerbation of COPD Diagnosis/Problems Diagnosis/Problems (1) Acute respiratory failure Status: Acute Assessment & Plan: Improved even further since yesterday, now off BiPAP- available for sleep and PRN Pulm consulted appreciate recs Likely has obesity hypoventilation syndrome complicating picture as well Continue on Steroids Will resume home lasix- attempt for net negative I/Os Qualifiers: Qualified Codes: J96.02 - Acute respiratory failure with hypercapnia (2) COPD exacerbation Status: Acute Assessment & Plan: Continue on steroids per Pulm Continue MAT Protocol Continue Duonebs prn and scheduled Does not use inhaler at home- will likely need at DC along with education on use Still needing supplemental oxygen which is not needed during daytime at home (3) Diabetes mellitus Status: Chronic Assessment & Plan: Blood sugars elevated overnight- likely due to steroids Continue home basal insulin Continue SSI C Qualifiers: Qualified Codes: E11.49 - Type 2 diabetes mellitus with other diabetic neurological complication; 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 (4) Agitation Assessment & Plan: Confusion much improved Continue Risperdal per Pulm and home xanax (has needed none) (5) Hypercalcemia Status: Chronic Assessment & Plan: Mild at 10.3 Reviewing labs over last few years shows to be chronic Awaiting results of ionized Ca, PTH, and JEROMY-I level (6) Mononeuritis multiplex Status: Chronic Assessment & Plan: per report of mom unable to walk due to this PT/OT (7) Hepatitis C Status: Chronic Assessment & Plan: Reportedly cured, family unsure though (8) Prophylactic measure Assessment & Plan: Lovenox for DVT ppx Saline Lock Carb Controlled Diet transfer out of ICU if okay with Pulm SUSAN SOSA MD Apr 27, 2017 09:48
[2017-04-27] MEDS: ENOXAPARIN 40 MG/0.4 ML (LOVENOX) SYR SC SCH (16:56)
[2017-04-27] MEDS: inSUlin DETERMIR 1 UNIT/0.01 ML (LEVEMIR) CHARGE PER UNIT SQ SCH (21:44)
[2017-04-28] VITALS: BP 173/97
[2017-04-28] MEDS: RT-ALBUTEROL SULF 2.5 MG/3 ML PRE-MIX VIAL IH SCH ×2 (03:41→06:22)
[2017-04-28 04:00] VITALS: BP 179/99
[2017-04-28] MEDS: meTOproloL SUCCINATE 50 MG (TOPROL XL) TAB PO SCH (04:47)
[2017-04-28 05:14] LABS: BASOPHILS % (AUTO) 0 % (0-10); EOSINOPHILS % (AUTO) 0 % (0-10); LYMPHOCYTES # (AUTO) 0.4 X 10^3 (1.0-4.0); LYMPHOCYTES % (AUTO) 3 % (12-44); MEAN CORPUSCULAR HEMOGLOBIN 33 PG (25-34); MEAN CORPUSCULAR HGB CONC 33 G/DL (32-36); MEAN CORPUSCULAR VOLUME 100 FL (80-99); MEAN PLATELET VOLUME 10.8 FL (7.4-10.4); MONOCYTES # (AUTO) 0.5 X 10^3 (0.0-1.0); MONOCYTES % (AUTO) 4 % (0-12); NEUTROPHILS # (AUTO) 10.5 X 10^3 (1.8-7.8); NEUTROPHILS % (AUTO) 93 % (42-75); PLATELET COUNT 137 10^3/uL (130-400); RED BLOOD COUNT 4.37 10^6/uL (4.35-5.85); RED CELL DISTRIBUTION WIDTH 13.7 % (10.0-14.5); WHITE BLOOD COUNT 11.3 10^3/uL (4.3-11.0)
[2017-04-28 05:33] LABS: ANION GAP 8 MMOL/L (5-14); BLOOD UREA NITROGEN 27 MG/DL (7-18); BUN/CREATININE RATIO 29; CALCIUM 10.2 MG/DL (8.5-10.1); CARBON DIOXIDE 30 MMOL/L (21-32); CHLORIDE 102 MMOL/L (98-107); CREATININE SERUM 0.92 MG/DL (0.60-1.30); GFR ESTIMATED > 60; GLUCOSE 230 MG/DL (70-105); MAGNESIUM 2.1 MG/DL (1.8-2.4); PHOSPHORUS 2.6 MG/DL (2.3-4.7); POTASSIUM 4.5 MMOL/L (3.6-5.0); SODIUM 140 MMOL/L (135-145)
[2017-04-28] MEDS: methylPREDNISolone 40 MG/ML (Solu-MEDROL) VIAL IV SCH (06:07)
[2017-04-28] MEDS: inSUlin ASPART (NovoLOG) 1 UNIT/0.01 ML (CHARGE PER UNIT) SC SCH (06:07)
[2017-04-28 06:08] VITALS: BP 173/87
[2017-04-28 07:51] LABS: CALCIUM PARA THYROID HORMONE 10.7 mg/dL (8.5-10.5)
[2017-04-28 07:59] LABS: CALCIUM PH 7.32
[2017-04-28 08:00] VITALS: BP 146/86
[2017-04-28] MEDS: oxyCODONE ER 40 MG (oxyCONTIN CR) TAB PO SCH (08:14)
[2017-04-28] MEDS: risperiDONE 0.25 MG (RisperDAL) TAB PO SCH (09:00)
[2017-04-28] MEDS: VENlafaxine XR 75 MG (EFFEXOR XR) CAP PO SCH (09:00)
--- NOTE | 2017-04-28 09:32 | Diagnostic Imaging Report ---
EXAMINATION: Portable upright radiograph of the chest. INDICATION: Dyspnea. FINDINGS: The heart size is enlarged. There is minimal left basilar atelectasis. Compared to 04/27/2017, no significant change is seen. The mediastinum and suzy appear unremarkable. No effusion or pneumothorax is evident. IMPRESSION: Stable left basilar atelectasis. Cardiomegaly. Dictated by: Dictated on workstation # [id number]
--- NOTE | 2017-04-28 09:47 | Physical Therapy Progress Note ---
Therapy Progress Note Patient declined PT stating he is going home. Family is present and states the same. PT will attempt later on this date. 1 ref ALEKSANDR BRUNO PT Apr 28, 2017 09:47
[2017-04-28] MEDS: GABAPENTIN 400 MG (NEURONTIN) CAP PO SCH (10:32)
--- NOTE | 2017-04-28 10:58 | Progress Note-Hospitalist ---
Standard Progress Note Progress Notes/Assess & Plan Date Seen 04/28/17 Time Seen by Provider: 10:55 Diagnosis Hypercarbic Respiratory Failure Assess & Plan/Chief Complaint The patient and his mother report that he is back to at least baseline function. They are eager to be discharged. This appears entirely reasonable. They are questioned about the supplies that they have at home. They apparently have both bronchodilator puffers and nebulizer. They have an oxygen concentrator and have for some years. They feel that they need no update on proper use or cleaning of these materials. Physical exam: He is sitting on side of bed with legs hanging over. The right leg shows swelling and considerable evidence of scarring and skin grafting. Lungs are clear to auscultation. CV is regular without murmur. Impression: Hypercapnia with borderline respiratory failure. 2.diabetes mellitus type II. 3.diabetic mononeuropathy multiplex. 4.morbid obesity Plan: Discharge to home. SEE discharge sequence for activities and medications. Labs Laboratory Tests 04/27/17 04:20 04/28/17 05:06 Diagnosis/Problems Diagnosis/Problems (1) Acute respiratory failure Status: Acute Assessment & Plan: Improved even further since yesterday, now off BiPAP- available for sleep and PRN Pulm consulted appreciate recs Likely has obesity hypoventilation syndrome complicating picture as well Continue on Steroids Will resume home lasix- attempt for net negative I/Os Qualifiers: Qualified Codes: J96.02 - Acute respiratory failure with hypercapnia (2) COPD exacerbation Status: Acute Assessment & Plan: Continue on steroids per Pulm Continue MAT Protocol Continue Duonebs prn and scheduled Does not use inhaler at home- will likely need at DC along with education on use Still needing supplemental oxygen which is not needed during daytime at home (3) Diabetes mellitus Status: Chronic Assessment & Plan: Blood sugars elevated overnight- likely due to steroids Continue home basal insulin Continue SSI C Qualifiers: Qualified Codes: E11.49 - Type 2 diabetes mellitus with other diabetic neurological complication; 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 (4) Agitation Assessment & Plan: Confusion much improved Continue Risperdal per Pulm and home xanax (has needed none) (5) Hypercalcemia Status: Chronic Assessment & Plan: Mild at 10.3 Reviewing labs over last few years shows to be chronic Awaiting results of ionized Ca, PTH, and JEROMY-I level (6) Mononeuritis multiplex Status: Chronic Assessment & Plan: per report of mom unable to walk due to this PT/OT (7) Hepatitis C Status: Chronic Assessment & Plan: Reportedly cured, family unsure though (8) Prophylactic measure Assessment & Plan: Lovenox for DVT ppx Saline Lock Carb Controlled Diet transfer out of ICU if okay with PulRAHUL Mann MD Apr 28, 2017 10:58
--- NOTE | 2017-04-28 11:04 | Discharge Instructions ---
Discharge Instructions Patient Instructions Patient Instructions: When using home O2, plan on 24 hours per day. If SaO2 by your oximeter drops below 88 percent increase the flow by 1 L/m. Do not allow the SaO2 to run greater than 94 percent. Medications and activities are as listed on the discharge sequence. Make arrangements to see your provider in 1-2 weeks. Activity & Diet Discharge Diet: ADA Diet Activity as Tolerated: Yes RAHUL OWEN MD Apr 28, 2017 11:04
[2017-04-28 11:35] VITALS: BP 146/86
[2017-04-28] MEDS ORDERED: methylPREDNISolone 40 MG/ML (Solu-MEDROL) VIAL IV SCH (18:00)
== END 2017-04-28 11:35 | disposition home or self-care (01) | DRG 189 ==
LOC: EDUNIT# 22:10 → ER 22:12 → 4TH 23:45 → UNDOADMIN 04-25 → ICU 04-25 07:30 → 4TH 04-25 08:45
PROVIDERS: ADMIT Internal Medicine; ATTEND Internal Medicine
DX: J96.02 Acute respiratory failure with hypercapnia (principal); J44.1 Chronic obstructive pulmonary disease with (acute) exacerbation; E87.2 Acidosis; E66.2 Morbid (severe) obesity with alveolar hypoventilation; Z68.41 Body mass index [BMI] 40.0-44.9, adult; F23 Brief psychotic disorder; R45.1 Restlessness and agitation; E11.49 Type 2 diabetes mellitus with other diabetic neurological complication; G58.7 Mononeuritis multiplex; E11.51 Type 2 diabetes mellitus with diabetic peripheral angiopathy without gangrene; E11.40 Type 2 diabetes mellitus with diabetic neuropathy, unspecified; I10 Essential (primary) hypertension; B18.2 Chronic viral hepatitis C; F17.210 Nicotine dependence, cigarettes, uncomplicated; E83.52 Hypercalcemia; G89.29 Other chronic pain; F41.9 Anxiety disorder, unspecified; F32.9 Major depressive disorder, single episode, unspecified; I77.6 Arteritis, unspecified; M06.9 Rheumatoid arthritis, unspecified; M19.91 Primary osteoarthritis, unspecified site; G47.9 Sleep disorder, unspecified; R60.9 Edema, unspecified; Z79.4 Long term (current) use of insulin; Z99.3 Dependence on wheelchair; Z99.81 Dependence on supplemental oxygen; Z87.898 Personal history of other specified conditions
CPT/HCPCS: 36415; 71010; 80048; 80053; 80306; 82140; 82164; 82330; 82805; 82962; 83735; 83970; 84100; 85025; 85610; 85730; 86141; 94640; 94660; 94760; 96361; 96374

== ENCOUNTER 2017-05-02 07:55 | Inpatient (IN) | payer MEDICARE, MEDICAID ==
[2017-05-02] VITALS (12 sets, daily range): BP systolic 128–164; BP diastolic 81–102
[~2017-05-02] VITALS: Ht 175.3 cm; Wt 141.7 kg
[~2017-05-02 07:55] MED LIST changes: +GABA-490 PO; +INSU100I23 SC; +INSU100I29 SC; +METO-370 PO; +VENL75CA93 PO
--- OUTSIDE RECORDS SUMMARY | 2017-05-02 08:07 | XMS REPORT | Encounter Summary ---
Author Author [facility] Organization [facility] Address Unknown Phone Unavailable Care Team Providers Care Financial Market Dealer Name Role Phone PCP Unavailable Reason for Visit * Reason Comments Altered mental status Neuropathy Encounter Details Date Type Department Care Team Description 03/04/2017 Telephone [facility] Juanpablo Forman MD Altered mental status; - Neurology [address] Neuropathy [address] [place] [address] [place] [address] [phone] Social History Tobacco Use Types Packs/Day Years [...]
--- OUTSIDE RECORDS SUMMARY | 2017-05-02 08:07 | XMS REPORT | Encounter Summary ---
Author Author [facility] Organization [facility] Address Unknown Phone Unavailable Care Team Providers Care Consumer Relations Specialist Name Role Phone PCP Unavailable Encounter Details Date Type Department Care Team Description 02/04/2017 Orders Only [facility] Juanpablo Forman MD - Neurology [address] [place] [address] [place] [address] [phone] Social History Tobacco Use Types Packs/Day Years [...] not previously characterized, consider ordering test code 42064, Cryoglobulin Screen with Reflex to Cryoglobulin Profile, Serum. REPORT COMMENT: FASTING:NO Test Performed at: [facility]/[address] CAMDEN MARRUFO MD,PHD Specimen Performing Laboratory [facility] [address] [place] [address] in this encounter Visit Diagnoses Not on filein this encounter
--- OUTSIDE RECORDS SUMMARY | 2017-05-02 08:07 | XMS REPORT | Clinical Summary ---
Author Author [facility] Organization [facility] Address Unknown Phone Unavailable Care Team Providers Care Community Relations Director Name Role Phone PCP Unavailable Source Comments Some departments are not documenting in the electronic medical record. If you do not see the information that you expected, contact Release of Information in the Health Information Management department at [phone] for further assistance in locating additional records.[facility] Allergies Active Allergy Reactions Severity Noted Date [...] not previously characterized, consider ordering test code 54569, Cryoglobulin Screen with Reflex to Cryoglobulin Profile, Serum. REPORT COMMENT: FASTING:NO Test Performed at: [facility]/[address] [id number] CAMDEN MARRUFO MD,PHD Specimen Performing Laboratory [facility] [address] [place] [id number] from Last 3 Months
--- OUTSIDE RECORDS SUMMARY | 2017-05-02 08:07 | XMS REPORT | Encounter Summary ---
Author Author [facility] Organization [facility] Address Unknown Phone Unavailable Care Team Providers Care Compounder Sterile Products Name Role Phone PCP Unavailable Reason for Visit * Reason Comments New Patient Last seen 2010 - patient with vasculitits and Mononeuritis multiplex Numbness bilateral hands and feet Encounter Details Date Type Department Care Team Description 02/04/2017 Office Visit [facility] Juanpablo Forman MD Mononeuritis multiplex - Neurology [address] (Primary Dx);Chronic [address] hepatitis C without [place] [address] [place] [address] (HCC);Cryoglobulinemia [phone] (HCC);Rheumatoid arthritis involving elbow, unspecified laterality, unspecified [...] extremities. This patient has been seen at [facility] in the past for HCV-associated cryoglobulinemic vasculitic [...] the past has followed with Rheumatology in [place]. Patient in addition notes hx of DMII [...] extremities. 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 - On the condition that Dr. España and the patient's new Stationary Engineer (who he will see on March 04) [...] is currently establishing care with a new automation mechanic and will be seeing in February. I would like for the patient to share a copy of my note with his other doctors namely, Dr. Wright, his pain specialist, but also his newly established automation mechanic when he will be seeing for the [...] like him to discuss with his new automation mechanic whether rituximab would be an option for him, but should also check with his liver specialist, Dr. Hastings in [facility] to assess whether rituximab would be safe for his liver dysfunction with hepatitis C. As long as Dr. Hastings has no objection and his new automation mechanic agrees that this would help also his rheumatoid arthritis, I think rituximab would be the next option. ([id number]) To reiterate my plan on him is to consider rituximab so long as it is permissible for his hepatitis C after the patient consults with his carpet jack , Dr. España inn [place], [place], but also I have rediscussed this with his new automation mechanic whether rituximab make sense when it comes to his symptom of rheumatoid arthritis. I would like to see him in followup in nine months or earlier as needed. I am curious he still has cryoglobulins to contribute to his neuropathy. He needs to discuss with his carpet jack whether Harvoni is an option. As far [...] testing before his visit in nine months. (DOC:[id number]) Time spent with the patient was 60 [...]
--- OUTSIDE RECORDS SUMMARY | 2017-05-02 08:07 | XMS REPORT | Encounter Summary ---
Author Author [facility] Organization [facility] Address Unknown Phone Unavailable Care Team Providers Care Sales Agent Protective Service Name Role Phone PCP Unavailable Reason for Visit * Reason Comments FYI Encounter Details Date Type Department Care Team Description 02/20/2017 Telephone [facility] Juanpablo Forman MD FYI - Neurology [address] [place] [address] [place] [address] [phone] Social History Tobacco Use Types Packs/Day Years [...]
--- OUTSIDE RECORDS SUMMARY | 2017-05-02 08:12 | XMS REPORT ---
Author Author DEMARCUS LEYLA Organization [facility] Address Unknown Care Team Providers Care Senior Microsoft Net Developer Name Role Phone LEYLA TRACY Unavailable PROBLEMS Type Condition ICD9-CM Code [id number] Code Onset Dates Condition Status SNOMED Code Problem Panic disorder F41.0 Active 586005783 ALLERGIES Substance Reaction Event Type Date Status Latex Unknown Drug Allergy Aug, Active SOCIAL HISTORY No smoking Hx information available PLAN OF CARE Activity Details Follow Up prn Reason:Wax Rim try in VITAL SIGNS MEDICATIONS Medication Instructions Dosage Frequency Start Date End Date Duration Status NovoLog 100 UNIT/ML Active Fosamax 5 MG Orally Once a week 1 tablet Active Furosemide 20 MG Orally Once a day as needed for leg swelling 1 tablet Active Gabapentin 800 MG Orally every 8 hours 1 tablet 8h Active Xanax 1 MG Orally 3 times a day 1 tablet as needed 8h 30 days Active Metoprolol Tartrate 100 MG Orally once a day 1 tablet with food 24h Active PredniSONE 10 MG Orally Once a day 1 tablet 24h Active Oxycodone HCl 30 MG Orally every 4-6 hours as needed 1 tablet as needed Active Promethazine HCl 25 MG Orally every 12 hrs 1 tablet as needed 12h Active Allopurinol 100 MG Orally Once a day 2 tablet 24h Active Restoril 15 MG Orally Once a day, hs 1 capsule at bedtime as needed May, Active OxyContin 60 MG Orally every 8 hours 1 tablet 8h Active RESULTS No Results PROCEDURES Procedure Date Ordered Related Diagnosis Body Site Dental no charge Sep 10, 2016 IMMUNIZATIONS No Known Immunizations
--- OUTSIDE RECORDS SUMMARY | 2017-05-02 08:13 | XMS REPORT ---
Author Author RAPHAEL AMEZQUITA [facility] Address [address] [place] [address] Care Team Providers Care Plater Printed Circuit Board Panels Name Role Phone RAPHAEL AMEZQUITA Unavailable PROBLEMS Type Condition ICD9-CM Code [id number] Code Onset Dates Condition Status SNOMED Code Problem Panic disorder F41.0 Active [id number] ALLERGIES Unknown Allergies SOCIAL HISTORY No smoking Hx information available PLAN OF CARE VITAL SIGNS MEDICATIONS Unknown Medications RESULTS No Results PROCEDURES No Known procedures IMMUNIZATIONS No Known Immunizations
--- OUTSIDE RECORDS SUMMARY | 2017-05-02 08:15 | XMS REPORT ---
Author Author DEMARCUS LEYLA [facility] Address Unknown Care Team Providers Care Animal Husbandry Manager Name Role Phone LEYLA TRACY Unavailable PROBLEMS Type Condition ICD9-CM Code CCC76-WB Code Onset Dates Condition Status SNOMED Code Problem Panic disorder F41.0 Active [id number] ALLERGIES Substance Reaction Event Type Date Status Latex Unknown Drug Allergy Aug, Active SOCIAL HISTORY No smoking Hx information available PLAN OF CARE Activity Details Follow Up 3 Weeks Reason:IMPRESSIONS WITH CUSTOM TRAYS VITAL SIGNS MEDICATIONS Medication Instructions Dosage Frequency Start Date End Date Duration Status Oxycodone HCl 30 MG Orally every 4-6 hours as needed 1 tablet as needed Active PredniSONE 10 MG Orally Once a day 1 tablet 24h Active Allopurinol 100 MG Orally Once a day 2 tablet 24h Active NovoLog 100 UNIT/ML Active Gabapentin 800 MG Orally every 8 hours 1 tablet 8h Active OxyContin 60 MG Orally every 8 hours 1 tablet 8h Active Metoprolol Tartrate 100 MG Orally once a day 1 tablet with food 24h Active Xanax 1 TAKE UP TO THREE TIMES A DAY NEEDED Active Promethazine HCl 25 MG Orally every 12 hrs 1 tablet as needed 12h Active Alprazolam 1 MG Orally tid, prn anxiety 1 tablet December, Active Furosemide 20 MG Orally Once a day as needed for leg swelling 1 tablet Active Fosamax 5 MG Orally Once a week 1 tablet Active Restoril 15 MG Orally Once a day, hs 1 capsule at bedtime as needed May, Active RESULTS No Results PROCEDURES Procedure Date Ordered Related Diagnosis Body Site COMPLETE DENTURE - MAXILLARY Jun 13, 2016 Billing Notes on claim Aug 20, 2016 IMMUNIZATIONS No Known Immunizations
[2017-05-02 08:21] LABS: ABG BASE EXCESS 0.2 MMOL/L (-2.5-2.5); ABG HCO3 25 MMOL/L (23-27); ABG OXYGEN SATURATION 91 % (94-100); ABG PCO2 49 MMHG (35-45); ABG PO2 59 MMHG (79-93); ABG TCO2 26.9 MMOL/L (21.0-31.0)
[2017-05-02 08:27] LABS: ABG PH 7.33 (7.37-7.43); ALLENS TEST POSITIVE; PATIENT TEMP 98.8
[2017-05-02] MEDS ORDERED: NS IV 500 ML 500 ML IV ONE (08:40)
[2017-05-02 08:48] LABS: BASOPHILS % (AUTO) 0 % (0-10); EOSINOPHILS # (AUTO) 0.2 10^3/uL (0.0-0.3); EOSINOPHILS % (AUTO) 1 % (0-10); LYMPHOCYTES # (AUTO) 1.3 X 10^3 (1.0-4.0); LYMPHOCYTES % (AUTO) 9 % (12-44); MEAN CORPUSCULAR HEMOGLOBIN 32 PG (25-34); MEAN CORPUSCULAR HGB CONC 33 G/DL (32-36); MEAN CORPUSCULAR VOLUME 98 FL (80-99); MEAN PLATELET VOLUME 11.3 FL (7.4-10.4); MONOCYTES # (AUTO) 0.4 X 10^3 (0.0-1.0); MONOCYTES % (AUTO) 3 % (0-12); NEUTROPHILS # (AUTO) 12.9 X 10^3 (1.8-7.8); NEUTROPHILS % (AUTO) 87 % (42-75); PLATELET COUNT 178 10^3/uL (130-400); RED BLOOD COUNT 5.24 10^6/uL (4.35-5.85); RED CELL DISTRIBUTION WIDTH 13.7 % (10.0-14.5); WHITE BLOOD COUNT 14.8 10^3/uL (4.3-11.0)
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
[2017-05-02 09:05] LABS: INR 0.9 (0.8-1.4); PROTHROMBIN TIME PATIENT 12.2 SEC (12.2-14.7)
[2017-05-02] MEDS ORDERED: methylPREDNISolone 125 MG (Solu-MEDROL) VIAL IV STA (09:10)
[2017-05-02 09:13] LABS: ALANINE AMINOTRANSFERASE 71 U/L (0-55); ALBUMIN 3.7 GM/DL (3.2-4.5); ANION GAP 11 MMOL/L (5-14); ASPARTATE AMINO TRANSFERASE 45 U/L (5-34); BILIRUBIN,TOTAL 1.3 MG/DL (0.1-1.0); BLOOD UREA NITROGEN 13 MG/DL (7-18); BUN/CREATININE RATIO 14; CALCIUM 9.7 MG/DL (8.5-10.1); CARBON DIOXIDE 25 MMOL/L (21-32); CHLORIDE 103 MMOL/L (98-107); CREATININE SERUM 0.94 MG/DL (0.60-1.30); GFR ESTIMATED > 60; GLUCOSE 138 MG/DL (70-105); SODIUM 139 MMOL/L (135-145); TOTAL PROTEIN 6.7 GM/DL (6.4-8.2); hs C REACTIVE PROTEIN 1.64 MG/DL (0.00-0.50)
--- NOTE | 2017-05-02 09:13 | Diagnostic Imaging Report ---
Portable upright radiograph of the chest. INDICATION: Shortness of breath. FINDINGS: There is markedly enlarged cardiac size, larger compared to 04/28/2017, comparison exam. This could be related to enlarged cardiac size and/or pericardial effusion There is pulmonary vascular congestion. There is suggestion of bibasilar minimal atelectasis. There is probably a small left pleural effusion. No pneumothorax. IMPRESSION: 1. There is markedly enlarged cardiac silhouette, larger compared to 04/28/2017. This could be to due to increased cardiac dilatation and/ or increased pericardial effusion. 2. Pulmonary vascular congestion. Dictated by: Dictated on workstation # [id number]
[2017-05-02 09:15] LABS: BAND NEUTROPHILS 17 %; BASOPHILS % (MANUAL) 0 %; EOSINOPHILS % (MANUAL) 2 %; LYMPHOCYTES % (MANUAL) 11 %; NEUTROPHILS % (MANUAL) 70 %
[2017-05-02 09:19] LABS: TROPONIN I < 0.30 NG/ML (<0.30)
[2017-05-02] MEDS ORDERED: NS 100 ML (IVPB) BAG IV ONE (09:45)
[2017-05-02] MEDS ORDERED: CATHETER FLUSH 10 ML SYR IV PRN (09:45)
[2017-05-02] MEDS ORDERED: IOHEXOL 350 MG/ML 150 ML (OMNIPAQUE 350) VIAL IV ONE (09:45)
--- NOTE | 2017-05-02 10:39 | Diagnostic Imaging Report ---
PROCEDURE: CT angiography of the chest with contrast. TECHNIQUE: Multiple contiguous axial images were obtained through the chest after uneventful bolus administration of intravenous contrast. Reconstructed CTA MIP acquisitions were also performed. INDICATION: Shortness of breath. I-125 mL of Omnipaque 350 is administered intravenously. FINDINGS: There are patchy areas of consolidation in the lower lobes more prominent on the right side concerning for pneumonia. There is no lung mass or suspicious nodule seen. Mild respiratory motion artifact is seen in the mid and lower lung zones. The pulmonary arteries demonstrate overall good contrast enhancement with no evidence of pulmonary embolism in the central pulmonary arteries, the lobar branches and the visualized segmental branches. Some of the segmental and most of the subsegmental branches are not well evaluated particularly in the lower lungs due to motion artifacts. There is no mediastinal mass. There is no lymphadenopathy in the mediastinum or suzy. No axillary lymphadenopathy is seen. There are multiple gallstones noted. Diffuse hepatic steatosis is seen. Suggestion of a simple cyst in the right hepatic dome measuring 1.2 cm is seen. The osseous structures demonstrate degenerative changes. IMPRESSION: 1. Patchy bilateral lower lobe consolidation more on the right side is concerning for pneumonia. 2. No central pulmonary embolism to the lobar branch level. Most of the segmental and subsegmental branches are not well evaluated on this exam. 3. Gallstones. 4. Hepatic steatosis. . Dictated by: Dictated on workstation # [id number]
[2017-05-02] MEDS ORDERED: PIPERACILLIN/TAZO 4.5 GM VIAL (ZOSYN) IV ONE (10:45)
[2017-05-02 11:04] LABS: BILIRUBIN,URINE NEGATIVE (NEGATIVE); KETONES,URINE NEGATIVE (NEGATIVE); LEUKOCYTE ESTERASE ,URINE NEGATIVE (NEGATIVE); NITRITE,URINE NEGATIVE (NEGATIVE); PH,URINE 5 (5-9); PROTEIN,URINE 1+ (NEGATIVE); UROBILINOGEN,URINE NORMAL (NORMAL)
[2017-05-02 11:14] LABS: SQUAMOUS EPITHELIAL CELL,UR RARE /HPF; WBC,URINE RARE /HPF
--- OUTSIDE RECORDS SUMMARY | 2017-05-02 11:24 | XMS REPORT | Encounter Summary ---
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
--- OUTSIDE RECORDS SUMMARY | 2017-05-02 11:24 | XMS REPORT | Encounter Summary ---
Author Author [facility] Organization [facility] Address Unknown Phone Unavailable Care Team Providers Care Access Director Name Role Phone PCP Unavailable Reason for Visit * Reason Comments Altered mental status Neuropathy Encounter Details Date Type Department Care Team Description 03/04/2017 Telephone [facility] Juanpablo Forman MD Altered mental status; - Neurology [address] Neuropathy [address] [place] [address] [place] [address] [phone] Social History Tobacco Use Types Packs/Day Years [...]
--- OUTSIDE RECORDS SUMMARY | 2017-05-02 11:24 | XMS REPORT | Encounter Summary ---
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 This patient has been seen at [facility] in the past for HCV-associated cryoglobulinemic vasculitic [...] the past has followed with Rheumatology in [place]. Patient in addition notes hx of DMII [...] extremities. 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 - On the condition that Dr. España and the patient's new Cable Armorer Operator (who he will see on March 04) [...] is currently establishing care with a new channel marketing specialist and will be seeing in February. I would like for the patient to share a copy of my note with his other doctors namely, Dr. Wright, his pain specialist, but also his newly established channel marketing specialist when he will be seeing for the [...] like him to discuss with his new channel marketing specialist whether rituximab would be an option for him, but should also check with his liver specialist, Dr. Hastings in [facility] to assess whether rituximab would be safe for his liver dysfunction with hepatitis C. As long as Dr. Hastings has no objection and his new channel marketing specialist agrees that this would help also his rheumatoid arthritis, I think rituximab would be the next option. ([id number]) To reiterate my plan on him is to consider rituximab so long as it is permissible for his hepatitis C after the patient consults with his heater installer , Dr. Espñaa inn [place], [place], but also I have rediscussed this with his new channel marketing specialist whether rituximab make sense when it comes to his symptom of rheumatoid arthritis. I would like to see him in followup in nine months or earlier as needed. I am curious he still has cryoglobulins to contribute to his neuropathy. He needs to discuss with his heater installer whether Harvoni is an option. As far [...] testing before his visit in nine months. (DOC:[id number]) Time spent with the patient was 60 [...]
--- OUTSIDE RECORDS SUMMARY | 2017-05-02 11:24 | XMS REPORT | Encounter Summary ---
Author Author [facility] Organization [facility] Address Unknown Phone Unavailable Care Team Providers Care Light Fixture Servicer Name Role Phone PCP Unavailable Encounter Details Date Type Department Care Team Description 02/04/2017 Orders Only [facility] Juanpablo Forman MD - Neurology [address] [place] [address] [place] [address] [phone] Social History Tobacco Use Types Packs/Day Years [...] not previously characterized, consider ordering test code 49754, Cryoglobulin Screen with Reflex to Cryoglobulin Profile, Serum. REPORT COMMENT: FASTING:NO Test Performed at: [facility]/[address] CAM[place] MARRUFO MD,PHD Specimen Performing Laboratory [facility] [address] [place] [address] in this encounter Visit Diagnoses Not on filein this encounter
--- OUTSIDE RECORDS SUMMARY | 2017-05-02 11:24 | XMS REPORT | Clinical Summary ---
Author Author [facility] Organization [facility] Address Unknown Phone Unavailable Care Team Providers Care Fieldwork Coordinator Name Role Phone PCP Unavailable Source Comments Some departments are not documenting in the electronic medical record. If you do not see the information that you expected, contact Release of Information in the Health Information Management department at [phone] for further assistance in locating additional records.[facility] Allergies Active Allergy Reactions Severity Noted [...] not previously characterized, consider ordering test code 29685, Cryoglobulin Screen with Reflex to Cryoglobulin Profile, Serum. REPORT COMMENT: FASTING:NO Test Performed at: [facility]/[address] [id number] CAMDEN MARRUFO MD,PHD Specimen Performing Laboratory [facility] [address] [place] [id number] from Last 3 Months
[2017-05-02] MEDS ORDERED: NS IV PRN ×2 (11:30→14:00)
--- NOTE | 2017-05-02 12:35 | Diagnostic Imaging Report ---
INDICATION: Central line placement. Comparison with 8:49 a.m. exam shows right jugular line now present. Tip overlies the superior venocaval shadow in good position. There continues to be cardiomegaly. Lungs are well aerated. No pneumothorax or pleural effusion. IMPRESSION: Satisfactory placement of right jugular line since previous exam. Dictated by: Dictated on workstation # [id number]
[2017-05-02] MEDS ORDERED: LORazepam INJ 2 MG/ML (ATIVAN) VIAL IV PRN (14:00)
[2017-05-02] MEDS ORDERED: NOREPINEPHRINE 4 MG in D5W 250 ML (IVPB) 250 ML IV SCH (14:00)
[2017-05-02] MEDS ORDERED: LEVOFLOXACIN 750 MG/150 ML IV 150 ML IV SCH (14:00)
[2017-05-02] MEDS ORDERED: FURO20TA4 PO (14:30)
[2017-05-02] MEDS ORDERED: ALBU2.5V4 NEB (14:30)
[2017-05-02] MEDS ORDERED: CHOL10007 PO (14:30)
[2017-05-02] MEDS ORDERED: PRD20T PO (14:30)
[2017-05-02] MEDS: NS IV 1000 ML 1,000 ML IV SCH ×2 (14:50→23:28)
[2017-05-02] MEDS: NOREPINEPHRINE 4 MG in D5W 250 ML (IVPB) 250 ML IV SCH ×2 (14:50→22:52)
[2017-05-02] MEDS ORDERED: RT-ALBUTEROL HFA (VENTOLIN) PER PUFF IH PRN (15:15)
[2017-05-02] MEDS ORDERED: NON-FORMULARY MEDICATION 1 EA EA (Oxycodone HCl 30 MG) PO PRN (15:15)
[2017-05-02] MEDS ORDERED: ONDANSETRON 4 MG (ZOFRAN) ORAL DISSOLVE TAB PO PRN (15:15)
[2017-05-02] MEDS ORDERED: RT-ALBUTEROL SULF 2.5 MG/3 ML PRE-MIX VIAL IH PRN ×2 (15:15→20:00)
[2017-05-02] MEDS ORDERED: ALPRAZolam 1 MG (XANAX) TAB PO PRN (15:15)
[2017-05-02] MEDS ORDERED: PATIENT MAY USE OWN MED,SINGLE MED PO SCH (16:30)
[2017-05-02] MEDS: inSUlin ASPART (NovoLOG) 1 UNIT/0.01 ML (CHARGE PER UNIT) SC SCH (16:50)
[2017-05-02] MEDS: PIPERACILLIN/TAZOBACTAM 4.5 GM/NS 100 ML IVPB IV SCH ×2 (16:51)
--- NOTE | 2017-05-02 17:10 | History & Physical-Hospitalist ---
HPI History of Present Illness: HPI/Chief Complaint Mr. Hagen is a 51-year-old white male who had been doing well up until last night. His mother who is his primary care provider noted that his oxygen level was low. She initially thought it was just secondary to the fact that his oxygen tubing was askew. His level have her remain low and it was suggested and he felt more fatigued than usual. He denied chills fever or cough but was brought to the emergency room due to hypoxia. He also denied chest pain or change in his baseline lower extremity edema. There are initial chest x-ray revealed cardiomegaly without overt heart failure. He then underwent pulmonary CT angiogram which revealed no evidence for pulmonary embolism but there were some patchy infiltrates in the right base concerning for pneumonia. His white count was elevated as blood pressure was a little bit low he received IV fluid resuscitation with normalization a pressure. High flow oxygen did not increase his level to the 90 range so BiPAP was initiated and his levels of and predominantly over 95 percent on BiPAP. Other than feeling tired he voices no other complaints. Past medical history is significant for significant the ability he has been nonambulatory for many years secondary to an autoimmune vasculitis. He has some prednisone-induced type II diabetes mellitus that is insulin requiring relatively low dose taking 15 units of Levemir at bedtime and 5-10 units bolus therapy before meals. They have been tapering his prednisone and he been down to 20 mg alternating with 10 mg on a daily basis. Date Seen 05/02/17 Time Seen by Provider: 07:20 Attending Physician Ladi Barclay Jonathan L MD Referring Physician Date of Admission May 02, 2017 at 10:50 Home Medications & Allergies Home Medications Reviewed patient Home Medication Reconciliation Form Allergies Allergies Coded Allergies hydrocodone (Verified Allergy, Unknown, TAKES OXYCODONE AT HOME, 05/05/16) STATES IS NOT ALLERGIC TO THIS MED latex (Verified Allergy, Unknown, 05/05/16) Past Tqylnir-Ctvepb-Rguswt Hx Patient Social History Alcohol Use: Occasionally Uses Recreational Drug Use: Yes (PAST HX OF DRUG USE) Smoking Status: Current Everyday Smoker Former Smoker, Quit: Mar 06, 2016 Type Used: Cigarettes 2nd Hand Smoke Exposure: No Recent Foreign Travel: No Contact w/other who traveled: No Recent Hopitalizations: Yes Recent Infectious Disease Expo: No Immunizations Up To Date Tetanus Booster (TDap): Unknown Pediatric: Yes Date of Pneumonia Vaccine: Nov 12, 2012 Seasonal Allergies Seasonal Allergies: No Surgeries Yes Abdominal, Cardiac, Orthopedic Respiratory Yes COPD Currently Using CPAP: No Cardiovascular Yes Chronic Edema/Swelling, Hypertension, Peripheral Vascular Neurological Yes (MONO NEURITIS; NEUROPATHY--WHEELCHAIR BOUND) Headaches /Migraines, Neuropathy Reproductive System Hx Reproductive Disorders: No Sexually Transmitted Disease: No HIV/AIDS: No Genitourinary Yes (BRIEFLY ON DIALYSIS IN PAST) Bladder Infection, Kidney Stones, Renal Failure, UTI-Chronic Gastrointestinal Yes (HEPATITIS C--NO TREATMENT. BILARY STENT) Gastroesophageal Reflux, Hepatitis, Gall Bladder Disease Musculoskeletal Yes Degenerate Disk Disease, Arthritis, Rheumatoid Arthritis, Chronic Back Pain Endocrine History of Endocrine Disorders: Yes (MORBID OBESITY; ELEVATED URIC ACID) Endocrine Disorders: Diabetes, Insulin dep HEENT History of HEENT Disorders: No Loss of Vision: Denies Hearing Impairment: Denies Cancer No Psychosocial History of Psychiatric Problem: Yes (EXTENSIVE POLYSUBSTANCE ABUSE, ESPECIALLY RX NARCOTICS) Behavioral Health Disorders: Sleep Difficulties, Anxiety, Depression Integumentary History of Skin or Integumenta: Yes (SKIN GRAFT RIGHT LEG (4 years ago)) Blood Transfusions History of Blood Disorders: No Reviewed Nursing Assessment Reviewed/Agree w Nursing PMH: Yes Family Medical History Significant Family History: No Pertinent Family Hx Family Hx: Alcoholism 03 FATHER Diabetes mellitus 03 FATHER Family history: Allergy 03 MOTHER Family history: Asthma 03 MOTHER Family history: Hypertension 03 FATHER 03 MOTHER Review of Systems Constitutional: No chills, No diaphoresis, No dizziness, No fever, No malaise, No weakness, No weight gain, No weight loss, No other Respiratory: No cough, No dyspnea on exertion, No hemoptysis, No orthopnea, No phlegm, No short of breath, No stridor, No wheezing, No other Cardiovascular: No chest pain, edema (stable), No Hx of Intervention, No palpitations, No syncope, No vascular heart diseas, No other Physical Exam Physical Exam Vital Signs Capillary Refill : Less Than 3 Seconds General Appearance: Chronically ill, Obese Respiratory: Chest Non Tender, Lungs Clear, Normal Breath Sounds, No Accessory Muscle Use, No Respiratory Distress Cardiovascular: Regular Rate, Rhythm, No Edema, No Gallop, No JVD, No Murmur, Normal Peripheral Pulses Gastrointestinal: Normal Bowel Sounds, No Organomegaly, No Pulsatile Mass, Non Tender, Soft Extremity: Other (EXCORIATION with mild erythema without induration over the left lateral malleolus area excoriation is quite small to several millimeters in size no other sores are noted. There is 1+ edema to the lower tibia on the left in 1-2+ on the right) Results Results/Procedures Lab Assessment/Plan Admission Diagnosis 1. Possible pneumonia essentially healthcare acquired with sepsis not severe continue antibiotics and BiPAP. 2. 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 3. Peripheral neuropathy secondary to number 2 and likely insulin requiring type II diabetes mellitus aggravated by chronic prednisone resume his chronic narcotic therapy gabapentin and basal bolus insulin therapy. Clinical Quality Measures DVT/VTE Risk/Contraindication: Risk Factor Score Per Nursin RFS Level Per Nursing on Admit: 4+=Very High CJ CEBALLOS MD May 02, 2017 17:10
[2017-05-02] MEDS: ENOXAPARIN 40 MG/0.4 ML (LOVENOX) SYR SC SCH (17:23)
--- NOTE | 2017-05-02 17:55 | Pulmonary Consultation ---
History of Present Illness History of Present Illness Date of Consultation 05/02/17 17:50 Time Seen by Provider: 17:50 Date of Admission History of Present Illness 51yo with hx of oxygen dependent COPD presented to ED via EMS secondary to hypoxia, and SOB. Symptoms started when patients oxygen become dislodged from his nose. Upon ED admission pt was found to have acute respiratory failure and required BiPAP. Denies fever/NS/C, no productive cough. CT from ED shows no PE however does show patchy infiltrates bilaterally. I am consulted for pulmonary/ CC managemtn. Allergies and Home Medications Allergies Coded Allergies: hydrocodone (Verified Allergy, Unknown, TAKES OXYCODONE AT HOME, 05/05/16) STATES IS NOT ALLERGIC TO THIS MED latex (Verified Allergy, Unknown, 05/05/16) Home Medications Albuterol Sulfate 8.5 Gm Hfa.aer.ad, 2 PUFF IH Q4H PRN for SHORTNESS OF BREATH, (Reported) Albuterol Sulfate 2.5 Mg/3 Ml Vial.neb, 2.5 MG NEB Q4H PRN for WHEEZING, ( Reported) Alprazolam 1 Mg Tablet, 1 MG PO TID PRN for ANXIETY, (Reported) Cholecalciferol (Vitamin D3) 1,000 Unit Capsule, 1,000 UNIT PO DAILY, (Reported) Furosemide 20 Mg Tablet, 20 MG PO DAILY PRN for SWELLING, (Reported) Gabapentin 800 Mg Tablet, 800 MG PO TID, (Reported) Insulin Detemir 100 Unit/1 Ml Insuln.pen, 15 UNITS SC HS, (Reported) Insulin Lispro 100 Unit/1 Ml Insuln.pen, SC AC, (Reported) Metoprolol Succinate 50 Mg Tab.er.24h, 50 MG PO DAILY, (Reported) Nystatin 15 Gm Powder, TP DAILY PRN for RASH, (Reported) Ondansetron 4 Mg Tab.rapdis, 4 MG PO Q4H PRN for NAUSEA/VOMITING-1ST LINE, ( Reported) Oxycodone HCl 30 Mg Tablet, 30 MG PO Q6H PRN for PAIN-SEVERE, (Reported) Oxycodone HCl 80 Mg Tab.er.12h, 80 MG PO TID, (Reported) Prednisone 10 Mg Tab, 10 MG PO Q48H, (Reported) Prednisone 20 Mg Tab, 20 MG PO Q48H, (Reported) Promethazine HCl 25 Mg Tablet, 25 MG PO BID PRN for NAUSEA/VOMITING-2ND LINE, ( Reported) Venlafaxine HCl 75 Mg Cap.er.24h, 75 MG PO DAILY, (Reported) Past Djfxage-Zqgunn-Nrlabv Hx Patient Social History Alcohol Use: Occasionally Uses Recreational Drug Use: Yes (PAST HX OF DRUG USE) Smoking Status: Current Everyday Smoker Type Used: Cigarettes Former Smoker, Quit: Mar 06, 2016 2nd Hand Smoke Exposure: No Recent Foreign Travel: No Contact w/Someone Who Travel: No Recent Infectious Disease Expo: No Recent Hopitalizations: Yes Physical Abuse: No Sexual Abuse: No Immunizations Up To Date Tetanus Booster (TDap): Unknown PED Vaccines UTD: Yes Date of Pneumonia Vaccine: Nov 12, 2012 Seasonal Allergies Seasonal Allergies: No Surgeries History of Surgeries: Yes Surgeries: Abdominal, Cardiac, Orthopedic Respiratory History of Respiratory Disorde: Yes Respiratory Disorders: Pneumonia, COPD Currently Using CPAP: No Cardiovascular History of Cardiac Disorders: Yes Cardiac Disorders: Chronic Edema/Swelling, Hypertension, Peripheral Vascular Neurological History of Neurological Disord: Yes (MONO NEURITIS; NEUROPATHY--WHEELCHAIR BOUND) Neurological Disorders: Headaches /Migraines, Neuropathy Reproductive System Hx Reproductive Disorders: No Sexually Transmitted Disease: No HIV/AIDS: No Genitourinary History of Genitourinary Disor: Yes (BRIEFLY ON DIALYSIS IN PAST) Genitourinary Disorders: Bladder Infection, Kidney Stones, Renal Failure, UTI- Chronic Gastrointestinal History of Gastrointestinal Di: Yes (HEPATITIS C--NO TREATMENT. BILARY STENT) Gastrointestinal Disorders: Gastroesophageal Reflux, Hepatitis, Gall Bladder Disease Musculoskeletal History of Musculoskeletal Dis: Yes Musculoskeletal Disorders: Degenerate Disk Disease, Arthritis, Rheumatoid Arthritis, Chronic Back Pain Endocrine History of Endocrine Disorders: Yes (MORBID OBESITY; ELEVATED URIC ACID) Endocrine Disorders: Diabetes, Insulin dep HEENT History of HEENT Disorders: No Loss of Vision: Denies Hearing Impairment: Denies Cancer History of Cancer: No Psychosocial History of Psychiatric Problem: Yes (EXTENSIVE POLYSUBSTANCE ABUSE, ESPECIALLY RX NARCOTICS) Behavioral Health Disorders: Sleep Difficulties, Anxiety, Depression Suicide Risk Score: 0 Integumentary History of Skin or Integumenta: Yes (SKIN GRAFT RIGHT LEG (4 years ago)) Blood Transfusions History of Blood Disorders: No Reviewed Nursing Assessment Reviewed/Agree w Nursing PMH: Yes Family Medical History Significant Family History: No Pertinent Family Hx Family Medial History: Alcoholism 03 FATHER Diabetes mellitus 03 FATHER Family history: Allergy 03 MOTHER Family history: Asthma 03 MOTHER Family history: Hypertension 03 FATHER 03 MOTHER Review of Systems Time Seen by Provider: 18:08 Constitutional: Sweats, Weakness, Malaise, No: Fever, Chills, Other Eyes: No: Pain, Vision change, Conjunctivae inflammation, Eyelid inflammation, Other, Redness ENT: No: Ear pain, Ear discharge, Nose pain, Nose discharge, Nose congestion, Mouth pain, Mouth swelling, Throat pain, Throat swelling, Other Respiratory: Cough, Dry, Shortness of breath, SOB with excertion Cardiovascular: Paroxysmal Noc. Dyspnea, Lt Headedness, No: Chest Pain, Palpitations, Orthopnea, Edema, Other Gastrointestinal: No: Nausea, Vomiting, Abdominal Pain, Diarrhea, Constipation , Melena, Hematochezia, Other Neurological: Weakness Exam Exam Vital Signs Date Time Temp Pulse Resp B/P (MAP) Pulse Ox O2 Delivery O2 Flow Rate FiO2 05/02/17 17:00 81 17 147/87 95 High Flow N/C 7.00 05/02/17 16:28 86 99 05/02/17 16:22 86 25 99 50.00 05/02/17 16:00 85 19 151/93 99 NIV Bilevel 50.00 05/02/17 16:00 95 High Flow N/C 7.00 05/02/17 15:00 98.2 05/02/17 15:00 82 22 128/82 99 NIV Bilevel 50.00 05/02/17 14:00 87 16 132/81 98 50.00 05/02/17 13:15 94 NIV Bilevel 05/02/17 13:00 90 25 133/89 97 NIV Bilevel 50.00 05/02/17 12:50 80 05/02/17 12:35 93 16 97 NIV Bilevel 05/02/17 08:38 126 26 94 100.00 05/02/17 08:06 NIV Bilevel 05/02/17 08:05 98.8 129 24 124/95 80 Nasal Cannula 6.00 I & O 05/03/17 07:00 Intake Total 0 ml Output Total 550 ml Balance -550 ml General Appearance: Chronically ill, Obese Respiratory: Chest Non Tender, Lungs Clear, Normal Breath Sounds, No Accessory Muscle Use, No Respiratory Distress Cardiovascular: Regular Rate, Rhythm, No Edema, No Gallop, No JVD, No Murmur, Normal Peripheral Pulses Capillary Refill: Less Than 3 Seconds Gastrointestinal: non tender, soft Extremity: Normal Capillary Refill, Normal Inspection, Normal Range of Motion, Other (EXCORIATION with mild erythema without induration over the left lateral malleolus area excoriation is quite small to several millimeters in size no other sores are noted. There is 1+ edema to the lower tibia on the left in 1-2 + on the right) Neurologic/Psychiatric: Alert Skin: Normal Color, Warm/Dry Lymphatic: No Adenopathy Results Lab Laboratory Tests 05/02/17 08:35 Assessment/Plan Assessment/Plan Acute on chronic respiratory failure - improving -PT is now only requiring 3 liter NC -BiPAP QHS and PRN Bilateral PNA HCAP -Continue zosyn change Levaquin to vanco -PT is currently on Zosyn, and Levaquin Autoimmune vasculitis -prednisone 20mg daily COPDAE -SVNS Q 4 -Solumedrol change to 40 IV Q 6 -- change to Q 12 Morbid obesity with hypoventilation syndrome 255 Clinical Quality Measures DVT/VTE Risk/Contraindication: Risk Factor Score Per Nursin RFS Level Per Nursing on Admit: 4+=Very High ARLEN PEGUERO DO May 02, 2017 17:55
[2017-05-02] MEDS ORDERED: PHARMACY TO DOSE IV SCH (18:15)
[2017-05-02] MEDS ORDERED: VANCOMYCIN INJECTION 2,250 MG in NS IV 500 ML 500 ML IV NR (18:30)
[2017-05-02] MEDS: RT-ALBUTEROL SULF 2.5 MG/3 ML PRE-MIX VIAL IH SCH ×2 (20:11→22:55)
[2017-05-02] MEDS ORDERED: GABAPENTIN 600 MG (NEURONTIN) TAB PO SCH (21:00)
[2017-05-02] MEDS ORDERED: inSUlin DETERMIR 1 UNIT/0.01 ML (LEVEMIR) CHARGE PER UNIT SQ SCH (21:00)
[2017-05-02] MEDS ORDERED: OXYCODONE HCL 80 MG PO SCH (21:00)
[2017-05-02] MEDS ORDERED: oxyCODONE ER 40 MG (oxyCONTIN CR) TAB PO SCH (21:00)
[2017-05-02] MEDS: OXYCODONE 30 MG PO PRN (21:04)
[2017-05-02] MEDS ORDERED: GABAPENTIN 400 MG (NEURONTIN) CAP ONE (23:00)
[2017-05-02] MEDS: GABAPENTIN 400 MG (NEURONTIN) CAP PO SCH (23:20)
[2017-05-02] MEDS: OXYCONTIN 80 MG PO SCH (23:21)
[2017-05-02] MEDS: inSUlin (REGULAR) HUMAN 1 UNIT/0.01 ML (CHARGE PER UNIT) SC SCH (23:21)
[2017-05-03] VITALS (17 sets, daily range): BP systolic 132–189; BP diastolic 74–108
[2017-05-03] MEDS: PIPERACILLIN/TAZOBACTAM 4.5 GM/NS 100 ML IVPB IV SCH ×4 (00:52→08:24)
[2017-05-03] MEDS: RT-ALBUTEROL SULF 2.5 MG/3 ML PRE-MIX VIAL IH SCH ×6 (02:34→23:18)
[2017-05-03] MEDS: NOREPINEPHRINE 4 MG in D5W 250 ML (IVPB) 250 ML IV SCH ×2 (03:04→08:25)
[2017-05-03 04:31] LABS: ABG HCO3 26 MMOL/L (23-27); ABG OXYGEN SATURATION 99 % (94-100); ABG PCO2 51 MMHG (35-45); ABG PO2 96 MMHG (79-93); ABG TCO2 27.2 MMOL/L (21.0-31.0)
[2017-05-03 04:34] LABS: ABG PH 7.32 (7.37-7.43); ALLENS TEST YES-POS
[2017-05-03 04:35] LABS: PATIENT TEMP 96.9
[2017-05-03 04:39] LABS: BASOPHILS % (AUTO) 0 % (0-10); EOSINOPHILS % (AUTO) 0 % (0-10); LYMPHOCYTES # (AUTO) 0.3 X 10^3 (1.0-4.0); LYMPHOCYTES % (AUTO) 3 % (12-44); MEAN CORPUSCULAR HEMOGLOBIN 32 PG (25-34); MEAN CORPUSCULAR HGB CONC 33 G/DL (32-36); MEAN CORPUSCULAR VOLUME 98 FL (80-99); MEAN PLATELET VOLUME 11.4 FL (7.4-10.4); MONOCYTES # (AUTO) 0.6 X 10^3 (0.0-1.0); MONOCYTES % (AUTO) 6 % (0-12); NEUTROPHILS # (AUTO) 8.6 X 10^3 (1.8-7.8); NEUTROPHILS % (AUTO) 91 % (42-75); PLATELET COUNT 89 10^3/uL (130-400); RED BLOOD COUNT 3.87 10^6/uL (4.35-5.85); RED CELL DISTRIBUTION WIDTH 13.3 % (10.0-14.5); WHITE BLOOD COUNT 9.5 10^3/uL (4.3-11.0)
[2017-05-03 05:06] LABS: ANION GAP 8 MMOL/L (5-14); BLOOD UREA NITROGEN 15 MG/DL (7-18); BUN/CREATININE RATIO 16; CALCIUM 8.6 MG/DL (8.5-10.1); CARBON DIOXIDE 23 MMOL/L (21-32); CHLORIDE 109 MMOL/L (98-107); CREATININE SERUM 0.92 MG/DL (0.60-1.30); GFR ESTIMATED > 60; GLUCOSE 265 MG/DL (70-105); MAGNESIUM 1.6 MG/DL (1.8-2.4); PHOSPHORUS 1.3 MG/DL (2.3-4.7); POTASSIUM 3.9 MMOL/L (3.6-5.0); SODIUM 140 MMOL/L (135-145)
[2017-05-03] MEDS ORDERED: POTASSIUM CL 10MEQ/50ML IVPB 50 ML IV SCH (06:00)
[2017-05-03] MEDS ORDERED: MAGNESIUM 1 GM/100 ML IVPB 100 ML IV SCH (06:00)
[2017-05-03] MEDS ORDERED: KCL 20 MEQ TAB (K-DUR) PO SCH (06:00)
[2017-05-03] MEDS: inSUlin (REGULAR) HUMAN 1 UNIT/0.01 ML (CHARGE PER UNIT) SC SCH ×4 (06:48→21:43)
[2017-05-03] MEDS: inSUlin ASPART (NovoLOG) 1 UNIT/0.01 ML (CHARGE PER UNIT) SC SCH ×3 (06:48→18:10)
[2017-05-03] MEDS: MAGNESIUM 1 GM/100 ML IVPB 100 ML IV SCH ×2 (06:49→08:19)
[2017-05-03] MEDS: predniSONE 20 MG TAB PO SCH (06:49)
[2017-05-03] MEDS ORDERED: VANCOMYCIN 1250 MG/NS 250 ML IVPB IV SCH ×2 (07:00)
[2017-05-03] MEDS: VENlafaxine XR 75 MG (EFFEXOR XR) CAP PO SCH (08:19)
[2017-05-03] MEDS: meTOproloL SUCCINATE 50 MG (TOPROL XL) TAB PO SCH (08:19)
[2017-05-03] MEDS: GABAPENTIN 400 MG (NEURONTIN) CAP PO SCH ×3 (08:20→20:29)
[2017-05-03] MEDS: OXYCONTIN 80 MG PO SCH ×3 (08:24→20:29)
--- NOTE | 2017-05-03 10:12 | Diagnostic Imaging Report ---
Portable chest when compared to prior study from May 02, 2017. INDICATION: Lower lobe pneumonias. FINDINGS: There is enlargement of the cardiac silhouette, which is not significantly changed. Right internal jugular line is stable. There is no pneumothorax. The patient's known lower lobe basilar infiltrates on CT study from the previous day are not as well delineated on the frontal view and obscured by the diaphragms. No large effusion is evident. IMPRESSION: 1. Given the location of the patient's a lower lobe pneumonias on previous CT study, these are likely obscured by the diaphragms on this frontal view. To document resolution, PA and lateral radiographs or followup chest CT will likely be required. Dictated by: Dictated on workstation # [id number]
[2017-05-03] MEDS: OXYCODONE 30 MG PO PRN ×2 (11:46→18:10)
--- NOTE | 2017-05-03 14:56 | Progress Note-Hospitalist ---
Subjective HPI/CC On Admission Date Seen by Provider: May 03, 2017 Time Seen by Provider: 08:15 Mr. Hagen is a 51-year-old white male who had been doing well up until last night. His mother who is his primary care provider noted that his oxygen level was low. She initially thought it was just secondary to the fact that his oxygen tubing was askew. His level have her remain low and it was suggested and he felt more fatigued than usual. He denied chills fever or cough but was brought to the emergency room due to hypoxia. He also denied chest pain or change in his baseline lower extremity edema. There are initial chest x-ray revealed cardiomegaly without overt heart failure. He then underwent pulmonary CT angiogram which revealed no evidence for pulmonary embolism but there were some patchy infiltrates in the right base concerning for pneumonia. His white count was elevated as blood pressure was a little bit low he received IV fluid resuscitation with normalization a pressure. High flow oxygen did not increase his level to the 90 range so BiPAP was initiated and his levels of and predominantly over 95 percent on BiPAP. Other than feeling tired he voices no other complaints. Past medical history is significant for significant the ability he has been nonambulatory for many years secondary to an autoimmune vasculitis. He has some prednisone-induced type II diabetes mellitus that is insulin requiring relatively low dose taking 15 units of Levemir at bedtime and 5-10 units bolus therapy before meals. They have been tapering his prednisone and he been down to 20 mg alternating with 10 mg on a daily basis. Subjective/Events-last exam Patient denies shortness of breath at rest. He is tolerating O2 3-4 L per nasal cannula maintaining sats greater than 90 percent. He denies chest pain he 's had a few episodes of mild cough nonproductive. Objective Exam Vital Signs Vital Sign - Last 12Hours 05/02/17 05/03/17 08:05 02:35 Temp 98.8 Pulse 129 Resp 24 B/P (MAP) 124/95 Pulse Ox 80 O2 Delivery Nasal Cannula O2 Flow Rate 6.00 FiO2 40 Capillary Refill : Less Than 3 Seconds General Appearance: Anxious, Chronically ill, Obese Respiratory: Other (Gathered basilar rhonchi with a few fine rales in the right base no wheezing noted.) Cardiovascular: Regular Rate, Rhythm, No Gallop, No JVD, No Murmur, Normal Peripheral Pulses Gastrointestinal: Normal Bowel Sounds, No Organomegaly, No Pulsatile Mass, Non Tender, Soft Extremity: No Calf Tenderness, Other (In plus bilateral edema in the lower tibia no erythema or warmth noted.) Results/Procedures Lab Laboratory Tests 05/03/17 04:30 Assessment/Plan Assessment and Plan Assess & Plan/Chief Complaint 1. Acute on chronic diastolic heart failure continue Lasix daily. Secondary hypoxia much improved we'll transfer to the floor. 2. Pneumonia felt to be less likely but cannot exclude this possibility continue antibiotics for now. 3. Type II diabetes mellitus with hyperglycemia will increase basal and bolus insulin therapy. CJ CEBALLOS MD May 03, 2017 14:56
[2017-05-03] MEDS: ENOXAPARIN 40 MG/0.4 ML (LOVENOX) SYR SC SCH (17:22)
[2017-05-03] MEDS ORDERED: inSUlin DETERMIR 1 UNIT/0.01 ML (LEVEMIR) CHARGE PER UNIT SQ SCH (21:00)
[2017-05-04] MEDS: RT-ALBUTEROL SULF 2.5 MG/3 ML PRE-MIX VIAL IH SCH ×3 (02:43→11:09)
[2017-05-04 03:26] VITALS: BP 172/92
[2017-05-04] MEDS: OXYCODONE 30 MG PO PRN (05:03)
[2017-05-04] MEDS ORDERED: TROUGH ORDER-PHARMACY XX NR (06:00)
[2017-05-04] MEDS: inSUlin (REGULAR) HUMAN 1 UNIT/0.01 ML (CHARGE PER UNIT) SC SCH ×2 (06:19→11:00)
[2017-05-04] MEDS: predniSONE 20 MG TAB PO SCH (06:19)
[2017-05-04] MEDS: inSUlin ASPART (NovoLOG) 1 UNIT/0.01 ML (CHARGE PER UNIT) SC SCH ×2 (06:22→12:54)
[2017-05-04 08:00] VITALS: BP 180/98
[2017-05-04] MEDS ORDERED: POTA8TAB53 PO (10:02)
[2017-05-04] MEDS: OXYCONTIN 80 MG PO SCH (10:09)
[2017-05-04] MEDS: GABAPENTIN 400 MG (NEURONTIN) CAP PO SCH (10:10)
[2017-05-04] MEDS: meTOproloL SUCCINATE 50 MG (TOPROL XL) TAB PO SCH (10:10)
[2017-05-04] MEDS: VENlafaxine XR 75 MG (EFFEXOR XR) CAP PO SCH (10:10)
--- NOTE | 2017-05-04 15:01 | Discharge Summary-Hospitalist ---
Diagnosis/Chief Complaint Date of Admission May 02, 2017 at 10:50 Date of Discharge 05/04/17 Discharge Date: May 04, 2017 Admission Diagnosis 1. Possible pneumonia essentially healthcare acquired with sepsis not severe continue antibiotics and BiPAP. 2. 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 3. Peripheral neuropathy secondary to number 2 and likely insulin requiring type II diabetes mellitus aggravated by chronic prednisone resume his chronic narcotic therapy gabapentin and basal bolus insulin therapy. Discharge Diagnosis 1. Acute on chronic diastolic heart failure continue Lasix daily. Secondary hypoxia much improved we'll transfer to the floor. 2. autoimmune vasculitis NOS 3. Type II diabetes mellitus with hyperglycemia will increase basal and bolus insulin therapy. Discharge Summary Discharge Physical Examination Allergies: Coded Allergies: hydrocodone (Verified Allergy, Unknown, TAKES OXYCODONE AT HOME, 05/05/16) STATES IS NOT ALLERGIC TO THIS MED latex (Verified Allergy, Unknown, 05/05/16) Vitals & I&Os Vital Signs Date Time Temp Pulse Resp B/P (MAP) Pulse Ox O2 Delivery O2 Flow Rate FiO2 05/04/17 08:15 Room Air 05/04/17 08:00 97.4 79 18 180/98 96 1.00 05/03/17 04:00 40 Hospital Course Mr. Hagen was admitted to the intensive care unit where IV diuretic therapy and initial antibiotics were started. Patchy infiltrate in the bases was felt to be due to likely acute on chronic diastolic heart failure. He had no other infectious symptoms so will not be discharged on antibiotics. Blood pressure normalized and he was discharged voicing no complaints with normalization of oxygen level. He did have some witnessed apneic events and was advised to keep follow-up appointment with Dr. Hall to discuss formal evaluation for sleep apnea. Discussed its negative impact on overall health. no changes in medical therapy with the addition of Lasix 20 mg daily and potassium 8 meq once daily. he was advised to follow-up with his primary care provider within 1-2 weeks as well. Labs (last 24 hrs) Laboratory Tests 05/03/17 16:30: Glucometer 256H 05/03/17 21:41: Glucometer 195H 05/04/17 06:02: Glucometer 115H 05/04/17 11:59: Glucometer 267H Microbiology 05/02/17 Blood Culture - Preliminary, Resulted No growth Pending Labs Laboratory Tests 05/04/17 11:59: Glucometer 267 Discharge Home Medications: Active Scripts Active K-Tab ER (Potassium Chloride) 8 Meq Tablet.er 8 Meq PO DAILY 30 Days Reported Albuterol Sulfate 2.5 Mg/3 Ml Vial.neb 2.5 Mg NEB Q4H PRN Furosemide 20 Mg Tablet 20 Mg PO DAILY PRN Prednisone 20 Mg Tab 20 Mg PO Q48H Vitamin D3 (Cholecalciferol (Vitamin D3)) 1,000 Unit Capsule 1,000 Unit PO DAILY Zofran Odt (Ondansetron) 4 Mg Tab.rapdis 4 Mg PO Q4H PRN Humalog Kwikpen (Insulin Lispro) 100 Unit/1 Ml Insuln.pen SC AC Levemir Flextouch (Insulin Detemir) 100 Unit/1 Ml Insuln.pen 15 Units SC HS Gabapentin 800 Mg Tablet 800 Mg PO TID Metoprolol Succinate 50 Mg Tab.er.24h 50 Mg PO DAILY Prednisone 10 Mg Tab 10 Mg PO Q48H Venlafaxine HCl ER (Venlafaxine HCl) 75 Mg Cap.er.24h 75 Mg PO DAILY Nyamyc (Nystatin) 15 Gm Powder TP DAILY PRN Promethazine Tablet (Promethazine HCl) 25 Mg Tablet 25 Mg PO BID PRN Proair Hfa (Albuterol Sulfate) 8.5 Gm Hfa.aer.ad 2 Puff IH Q4H PRN Alprazolam 1 Mg Tablet 1 Mg PO TID PRN Oxycontin (Oxycodone HCl) 80 Mg Tab.er.12h 80 Mg PO TID Oxycodone HCl 30 Mg Tablet 30 Mg PO Q6H PRN Instructions to patient/family Please see electronic discharge instructions given to patient. Clinical Quality Measures DVT/VTE Risk/Contraindication: Risk Factor Score Per Nursin RFS Level Per Nursing on Admit: 4+=Very High Copy Copies To 1: GLENN SHAHID MD, MARK D MD May 04, 2017 15:01
== END 2017-05-04 12:38 | disposition home or self-care (01) | DRG 189 ==
LOC: EDUNIT# 07:55 → ER 08:02 → ICU 10:50 → 4TH 05-03 11:07
PROVIDERS: ADMIT Internal Medicine; ATTEND Internal Medicine
PROC: 02HV33Z Insertion of Infusion Device into Superior Vena Cava, Percutaneous Approach (ICD-10-PCS; principal; 2017-05-02)
DX: J96.20 Acute and chronic respiratory failure, unspecified whether with hypoxia or hypercapnia (principal); I11.0 Hypertensive heart disease with heart failure; I50.33 Acute on chronic diastolic (congestive) heart failure; J44.1 Chronic obstructive pulmonary disease with (acute) exacerbation; E66.2 Morbid (severe) obesity with alveolar hypoventilation; Z68.41 Body mass index [BMI] 40.0-44.9, adult; E11.65 Type 2 diabetes mellitus with hyperglycemia; F17.210 Nicotine dependence, cigarettes, uncomplicated; R60.9 Edema, unspecified; E11.49 Type 2 diabetes mellitus with other diabetic neurological complication; G58.7 Mononeuritis multiplex; E11.51 Type 2 diabetes mellitus with diabetic peripheral angiopathy without gangrene; E11.40 Type 2 diabetes mellitus with diabetic neuropathy, unspecified; B18.2 Chronic viral hepatitis C; G89.29 Other chronic pain; F41.9 Anxiety disorder, unspecified; F32.9 Major depressive disorder, single episode, unspecified; I77.6 Arteritis, unspecified; M06.9 Rheumatoid arthritis, unspecified; M19.91 Primary osteoarthritis, unspecified site; Z79.4 Long term (current) use of insulin; Z79.52 Long term (current) use of systemic steroids; Z99.3 Dependence on wheelchair; Z99.81 Dependence on supplemental oxygen
CPT/HCPCS: 36415; 71010; 71275; 80048; 80053; 81000; 82805; 82962; 83605; 83735; 84100; 84484; 85007; 85025; 85027; 85379; 85610; 85730; 86141; 87040; 93005; 94640; 94660; 94760; 96361; 96365; 96366; 96375

== ENCOUNTER → 2017-05-20 | Outpatient (CLI) | payer MEDICARE, MEDICAID ==
--- NOTE | 2017-04-16 13:42 | Diagnostic Imaging Report ---
INDICATION: History of left foot fractures. COMPARISON: 07/14/2016 and 10/24/2016 FINDINGS: Left foot: Deformities of the distal second, third, and fourth metatarsals are noted and are consistent with old healed fractures. This corresponds to abnormality seen on prior exams. No new acute abnormality of the left foot is identified. Joint spaces are maintained. No unexpected radiopaque foreign bodies are seen. Right foot: There is no acute fracture or dislocation of the right foot. Joint spaces are maintained. Bony structures are intact. There is abnormal asymmetric moderate soft tissue swelling involving the ventral margins of the foot. No unexpected radiopaque foreign bodies are seen. Note is made of overall generalized decreased bone mineral density to both feet. IMPRESSION: 1. Old healed fractures of the second, third, and fourth metatarsals of left foot. 2. Asymmetric soft tissue swelling of the right foot, but no evidence of acute fracture or dislocation is seen on either side. 3. Findings suggestive of underlying osteopenia/osteoporosis. Correlation with DEXA scan is recommended. Dictated by: Dictated on workstation # [id number]
--- NOTE | 2017-04-16 19:04 | Diagnostic Imaging Report ---
EXAMINATION: Bilateral hands. INDICATION: Hand pain. TECHNIQUE: Three views of both hands were obtained. FINDINGS: The previous bilateral hand exam of 10/24/2016 failed to show any sign of an acute abnormality. However, the osseous structures did appear to be demineralized and there were degenerative changes involving the PIP and DIP joints of the digits of each hand. On this study, there is still no fracture, dislocation, or acute bony abnormality evident. The osseous structures remain demineralized and the degenerative changes involving the DIP and PIP joints do not seem to have progressed. The radiocarpal and triscaphe joints seem to be fairly well maintained. The soft tissues are unremarkable. Surgical clips are again visualized in the soft tissues of the right wrist. IMPRESSION: 1. When compared to the previous study, there does not appear to have been any significant change. There is still no evidence for an acute abnormality. 2. The degenerative changes involving the hands noted on the prior exam have not progressed. Dictated by: Dictated on workstation # [id number]
[~2017-05-20] MED LIST changes: +ALBU2.5V4 NEB; +CHOL10007 PO; +METO-272 PO; -METO-370 PO; +POTA8TAB53 PO
[2017-05-20 10:58] LABS: ALANINE AMINOTRANSFERASE 67 U/L (0-55); ALBUMIN 3.8 GM/DL (3.2-4.5); ANION GAP 10 MMOL/L (5-14); ASPARTATE AMINO TRANSFERASE 29 U/L (5-34); BILIRUBIN,TOTAL 0.8 MG/DL (0.1-1.0); BLOOD UREA NITROGEN 20 MG/DL (7-18); BUN/CREATININE RATIO 20; CALCIUM 11.9 MG/DL (8.5-10.1); CARBON DIOXIDE 31 MMOL/L (21-32); CHLORIDE 96 MMOL/L (98-107); CREATININE SERUM 1.01 MG/DL (0.60-1.30); GFR ESTIMATED > 60; GLUCOSE 320 MG/DL (70-105); POTASSIUM 5.1 MMOL/L (3.6-5.0); SODIUM 137 MMOL/L (135-145); TOTAL PROTEIN 7.2 GM/DL (6.4-8.2); URIC ACID 8.6 MG/DL (2.6-7.2); hs C REACTIVE PROTEIN 0.34 MG/DL (0.00-0.50)
== END ==
LOC: LAB 04-16 09:21
PROVIDERS: ATTEND Internal Medicine Rheumatology
DX: M25.50 Pain in unspecified joint (principal)
CPT/HCPCS: 36415; 80053; 84550; 85652; 86141; 86200; 86430

== ENCOUNTER 2017-09-13 15:27 | Observation (INO) | payer MEDICARE, MEDICAID ==
[~2017-09-13] VITALS: Ht 177.8 cm; Wt 139.9 kg
[2017-09-13] VITALS (10 sets, daily range): BP systolic 104–165; BP diastolic 68–96
[~2017-09-13 15:27] MED LIST changes: -METO-272 PO; +METO-370 PO; +METO100T12 PO; -METO100T2 PO
[2017-09-13] MEDS ORDERED: NS IV 1000 ML 1,000 ML IV SCH (15:45)
[2017-09-13] MEDS ORDERED: NALOXONE 0.4 MG/ML 1 ML (NARCAN) VIAL IV ONE (15:45)
[2017-09-13] MEDS ORDERED: IBUPROFEN 800 MG (MOTRIN) TAB PO ONE (15:45)
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
[2017-09-13] MEDS ORDERED: RT-ALBUTEROL/IPRATROPIUM 3 ML (DUONEB) VIAL ONE (15:51)
[2017-09-13 16:02] LABS: BASOPHILS # (AUTO) 0.1 10^3/uL (0.0-0.1); BASOPHILS % (AUTO) 1 % (0-10); EOSINOPHILS # (AUTO) 0.3 10^3/uL (0.0-0.3); EOSINOPHILS % (AUTO) 3 % (0-10); HEMATOCRIT 42 % (40-54); HEMOGLOBIN 13.8 G/DL (13.3-17.7); LYMPHOCYTES # (AUTO) 2.1 X 10^3 (1.0-4.0); LYMPHOCYTES % (AUTO) 22 % (12-44); MEAN CORPUSCULAR HEMOGLOBIN 33 PG (25-34); MEAN CORPUSCULAR HGB CONC 33 G/DL (32-36); MEAN CORPUSCULAR VOLUME 99 FL (80-99); MEAN PLATELET VOLUME 10.7 FL (7.4-10.4); MONOCYTES # (AUTO) 0.9 X 10^3 (0.0-1.0); MONOCYTES % (AUTO) 10 % (0-12); NEUTROPHILS # (AUTO) 6.2 X 10^3 (1.8-7.8); NEUTROPHILS % (AUTO) 65 % (42-75); PLATELET COUNT 191 10^3/uL (130-400); RED BLOOD COUNT 4.21 10^6/uL (4.35-5.85); RED CELL DISTRIBUTION WIDTH 13.3 % (10.0-14.5); WHITE BLOOD COUNT 9.6 10^3/uL (4.3-11.0)
[2017-09-13 16:07] LABS: ABG BASE EXCESS 4.7 MMOL/L (-2.5-2.5); ABG OXYGEN SATURATION 94 % (94-100); ABG PCO2 66 MMHG (35-45); ABG PO2 76 MMHG (79-93); ABG TCO2 32.8 MMOL/L (21.0-31.0)
--- NOTE | 2017-09-13 16:08 | Diagnostic Imaging Report ---
PATIENT HISTORY: Syncope, cough and congestion. TECHNIQUE: Single frontal view of the chest. COMPARISON: 05/03/2017. FINDINGS: There is cardiomegaly with central vascular congestion and mild interstitial edema. No focal consolidation is seen. No pleural effusion or pneumothorax is seen. Haziness over the lung bases if felt to be due to overlying soft tissues. No acute osseous abnormality is seen. IMPRESSION: Cardiomegaly with central vascular congestion and mild interstitial edema. Dictated by: Dictated on workstation # [id number]
[2017-09-13 16:10] LABS: ABG PH 7.29 (7.37-7.43); ALLENS TEST YES-POS
[2017-09-13 16:11] LABS: INSPIRED O2 3.5; PATIENT TEMP 98.9; VENTILATOR NO
[2017-09-13 16:21] LABS: ALANINE AMINOTRANSFERASE 42 U/L (0-55); ALBUMIN 3.6 GM/DL (3.2-4.5); ALKALINE PHOSPHATASE 66 U/L (40-136); BILIRUBIN,TOTAL 0.6 MG/DL (0.1-1.0); BUN/CREATININE RATIO 11; CALCIUM 11.1 MG/DL (8.5-10.1); CARBON DIOXIDE 27 MMOL/L (21-32); CHLORIDE 101 MMOL/L (98-107); CREATININE SERUM 1.17 MG/DL (0.60-1.30); GFR ESTIMATED > 60; GLUCOSE 191 MG/DL (70-105); POTASSIUM 4.1 MMOL/L (3.6-5.0); SODIUM 139 MMOL/L (135-145); TOTAL PROTEIN 6.5 GM/DL (6.4-8.2)
[2017-09-13] MEDS ORDERED: FUROSEMIDE 40 MG/4 ML INJ (LASIX) IVP ONE (16:45)
[2017-09-13 17:41] LABS: ABG BASE EXCESS 4.2 MMOL/L (-2.5-2.5); ABG OXYGEN SATURATION 96 % (94-100); ABG PCO2 61 MMHG (35-45); ABG PO2 84 MMHG (79-93); ABG TCO2 31.7 MMOL/L (21.0-31.0)
[2017-09-13 17:42] LABS: ABG PH 7.31 (7.37-7.43); ALLENS TEST YES-POS; INSPIRED O2 30 BIPAP; PATIENT TEMP 98.9; VENTILATOR NO
[2017-09-13 18:20] LABS: BILIRUBIN,URINE NEGATIVE (NEGATIVE); CLARITY,URINE CLEAR; COLOR,URINE YELLOW; GLUCOSE, URINE (UA) 2+ (NEGATIVE); KETONES,URINE NEGATIVE (NEGATIVE); LEUKOCYTE ESTERASE ,URINE 1+ (NEGATIVE); NITRITE,URINE NEGATIVE (NEGATIVE); PH,URINE 5 (5-9); PROTEIN,URINE 2+ (NEGATIVE); UROBILINOGEN,URINE NORMAL (NORMAL)
[2017-09-13 18:26] LABS: SQUAMOUS EPITHELIAL CELL,UR 0-2 /HPF; WBC,URINE 0-2 /HPF
[2017-09-13 18:28] LABS: AMPHETAMINE SCREEN, URINE NEGATIVE (NEGATIVE); BARBITURATE SCREEN URINE NEGATIVE (NEGATIVE); BENZODIAZEPINES SCREEN URINE POSITIVE (NEGATIVE); CANNABINOID SCREEN, URINE NEGATIVE (NEGATIVE); COCAINE SCREEN URINE NEGATIVE (NEGATIVE); METHADONE STAT NEGATIVE (NEGATIVE); METHAMPHETAMINE SCREEN URINE S NEGATIVE (NEGATIVE); OPIATE SCREEN URINE NEGATIVE (NEGATIVE); OXYCODONE STAT POSITIVE (NEGATIVE); PROPOXYPHENE STAT NEGATIVE (NEGATIVE); TRICYCLIC ANTIDEPRESSANTS SCRE NEGATIVE (NEGATIVE)
[2017-09-13] MEDS ORDERED: NS IV 1000 ML 1,000 ML ONE (19:43)
[2017-09-13] MEDS ORDERED: NALOXONE 0.4 MG/ML 1 ML (NARCAN) VIAL IV PRN (21:30)
[2017-09-13] MEDS ORDERED: RT-ALBUTEROL SULF 2.5 MG/3 ML PRE-MIX VIAL INH PRN (21:45)
[2017-09-13] MEDS ORDERED: oxyCODONE/APAP 10/325MG (PERCOCET 10) TABLET PO PRN (22:00)
[2017-09-13] MEDS ORDERED: ALPRAZolam 1 MG (XANAX) TAB PO PRN (22:00)
[2017-09-13] MEDS ORDERED: inSUlin DETERMIR 1 UNIT/0.01 ML (LEVEMIR) CHARGE PER UNIT SQ SCH (22:00)
[2017-09-13] MEDS ORDERED: GABAPENTIN 400 MG (NEURONTIN) CAP ONE (22:12)
[2017-09-13] MEDS: GABAPENTIN 600 MG (NEURONTIN) TAB PO SCH (22:18)
[2017-09-13] MEDS: NS IV 1000 ML 1,000 ML IV SCH (22:32)
[2017-09-14] VITALS (12 sets, daily range): BP systolic 98–149; BP diastolic 52–90
[2017-09-14] MEDS: RT-ALBUTEROL SULF 2.5 MG/3 ML PRE-MIX VIAL INH SCH ×3 (01:24→11:06)
[2017-09-14] MEDS: inSUlin ASPART (NovoLOG) 1 UNIT/0.01 ML (CHARGE PER UNIT) SC SCH ×3 (06:00→11:43)
[2017-09-14] MEDS ORDERED: VENlafaxine XR 75 MG (EFFEXOR XR) CAP PO ONE (07:45)
[2017-09-14] MEDS: GABAPENTIN 600 MG (NEURONTIN) TAB PO SCH (07:48)
[2017-09-14] MEDS: NS IV 1000 ML 1,000 ML IV SCH (07:52)
[2017-09-14] MEDS ORDERED: predniSONE 10 MG TAB PO NR (08:00)
[2017-09-14] MEDS ORDERED: oxyCODONE ER 40 MG (oxyCONTIN CR) TAB PO PRN (08:15)
[2017-09-14] MEDS ORDERED: ALPRAZolam 0.5 MG (XANAX) TAB PO PRN (08:15)
[2017-09-14] MEDS ORDERED: DULO60CA6 PO (08:25)
[2017-09-14] MEDS ORDERED: DULO30CA3 PO (08:25)
[2017-09-14] MEDS ORDERED: DULoxetine 30 MG (CYMBALTA) CAP PO SCH (09:00)
[2017-09-14] MEDS ORDERED: inSUlin DETERMIR 1 UNIT/0.01 ML (LEVEMIR) CHARGE PER UNIT SQ ONE (09:00)
--- OUTSIDE RECORDS SUMMARY | 2017-09-14 10:30 | XMS REPORT | Clinical Summary ---
Author Author [facility] Organization [facility] Address Unknown Phone Unavailable Care Team Providers Care Wound/Ostomy Clinical Nurse Specialist Name Role Phone Juanpablo Forman MD Unavailable Louise Peters MD Unavailable Codey Suárez MD Unavailable Frantz iSdhu MD Unavailable Jenny Miller MD Unavailable Marisabel Blas DO Unavailable Klebre Jay MD Unavailable Johnny Brar MD Unavailable Unavailable Ivan Gomez MD Unavailable Unavailable Berta Davis RN Unavailable Unavailable Glenny Ocampo DO Unavailable Saravanan Kc MD Unavailable Simon España MD [id number] Gustavo Sandoval DO [id number] Yaritza López RN Unavailable Unavailable Gavin Schneider MD Unavailable Berta Hurst APRN Unavailable Sonya Johnson MD Unavailable Kel Wright MD PCP Source Comments Some departments are not documenting in the electronic medical record. If you do not see the information that you expected, contact Release of Information in the Health Information Management department at [phone] for further assistance in locating additional records.[facility] Allergies Active Allergy Reactions Severity Noted [...] multiplex 12/22/2009 Hypertension 12/22/2009 Urinary retention 12/22/2009 Family History Medical History Relation Name Comments [...] 1982 COLORECTAL CANCER 2015 SCREENING INFLUENZA VACCINE 03/18/2017 Results Not on filefrom Last 3 Months
--- OUTSIDE RECORDS SUMMARY | 2017-09-14 10:36 | XMS REPORT ---
Author Author HELENALEYLA BILLY Organization [facility] Address Unknown Care Team Providers Care Rewind Operator Name Role Phone LEYLA TRACY Unavailable PROBLEMS Type Condition ICD9-CM Code [id number] Code Onset Dates Condition Status SNOMED Code Problem Panic disorder F41.0 Active [id number] ALLERGIES Substance Reaction Event Type Date Status Latex Unknown Drug Allergy Sep, Active SOCIAL HISTORY Never Assessed PLAN OF CARE Activity Details Follow Up 3 Weeks Reason:WAX TRY IN VITAL SIGNS MEDICATIONS Medication Instructions Dosage Frequency Start Date End Date Duration Status Gabapentin 800 MG Orally every 8 hours 1 tablet 8h Active Xanax 1 MG Orally 3 times a day 1 tablet as needed 8h 30 days Active OxyContin 60 MG Orally every 8 hours 1 tablet 8h Active Metoprolol Tartrate 100 MG Orally once a day 1 tablet with food 24h Active Furosemide 20 MG Orally Once a day as needed for leg swelling 1 tablet Active PredniSONE 10 MG Orally Once a day 1 tablet 24h Active Promethazine HCl 25 MG Orally every 12 hrs 1 tablet as needed 12h Active Allopurinol 100 MG Orally Once a day 2 tablet 24h Active Alprazolam 1 TAKE ONE TABLET BY MOUTH THREE TIMES A DAY NEEDED FOR ANXIETY 30 Active NovoLog 100 UNIT/ML Active Restoril 15 MG Orally Once a day, hs 1 capsule at bedtime as needed May, Active Fosamax 5 MG Orally Once a week 1 tablet Active Oxycodone HCl 30 MG Orally every 4-6 hours as needed 1 tablet as needed Active RESULTS No Results PROCEDURES Procedure Date Ordered Result Body Site Dental no charge Oct 08, 2016 IMMUNIZATIONS No Known Immunizations MEDICAL (GENERAL) HISTORY Type Description Date Medical History mononeuritis multiplex Medical History neuropathy(hands, legs, and feet.) Medical History panic attacks Medical History insomnia Medical History RA Medical History vasculitis Medical History type II diabetes(possible steroid induced) Medical History hypertension Medical History osteoporosis Medical History Gout Surgical History back surgery for herniated disk 1994 Surgical History kidney stones Hospitalization History surgeries Hospitalization History dehydration Hospitalization History x3 days for resp. failure Mar 2016
--- OUTSIDE RECORDS SUMMARY | 2017-09-14 10:36 | XMS REPORT ---
Author Author LEYLA TRACY [facility] Address Unknown Care Team Providers Care Felling Machine Operator Name Role Phone HELENAMARIAJOSE LEYLA Unavailable PROBLEMS Type Condition ICD9-CM Code [id number] Code Onset Dates Condition Status SNOMED Code Problem Panic disorder F41.0 Active [id number] ALLERGIES No Information SOCIAL HISTORY Never Assessed PLAN OF CARE Activity Details Follow Up 1 Week Reason:Denture adj VITAL SIGNS MEDICATIONS Unknown Medications RESULTS No Results PROCEDURES Procedure Date Ordered Result Body Site Dental no charge November 29, 2016 IMMUNIZATIONS No Known Immunizations MEDICAL (GENERAL) [...]
--- NOTE | 2017-09-14 13:20 | Short Stay Summary-Hospitalist ---
HPI History of Present Illness: HPI/Chief Complaint Mr. Hagen is essentially bedfast frail 52-year-old white male secondary to polyneuropathy who was brought in by EMS due to increasing lethargy and decreased in mental status. His mother checked his oxygen level and noted that it was in the 80s. There is questionable reports of the fever the day before. There is also a high likelihood that he took at least an extra Xanax and I suspect extra oxycodone as well. He did respond to Narcan without exacerbation of significant pain. He was still somewhat lethargic though improved. He was transferred to the intensive care unit for monitoring. He has a history of inadvertent narcotic and benzodiazepine overdose in the past. He was awake and alert upon my arrival the early a.m. of the denying depression or calling taking extra medication. Date Seen 09/14/17 Time Seen by Provider: 06:30 Attending Physician Cj Kunz MD PCP Glenn Wright MD Referring Physician Date of Admission Sep 13, 2017 at 16:20 Home Medications & Allergies Home Medications Reviewed patient Home Medication Reconciliation Form Allergies Allergies Coded Allergies hydrocodone (Verified Allergy, Unknown, TAKES OXYCODONE AT HOME, 05/05/16) STATES IS NOT ALLERGIC TO THIS MED latex (Verified Allergy, Unknown, 05/05/16) Past Yoisrbu-Pbjmzt-Orvvfo Hx Patient Social History Alcohol Use: Denies Use Recreational Drug Use: Yes Smoking Status: Current Someday Smoker Former Smoker, Quit: Mar 06, 2016 Type Used: Cigarettes 2nd Hand Smoke Exposure: No Physical Abuse Screen: No Sexual Abuse: No Recent Foreign Travel: No Contact w/other who traveled: No Recent Hopitalizations: No Recent Infectious Disease Expo: No Immunizations Up To Date Tetanus Booster (TDap): Unknown Pediatric: Yes Date of Pneumonia Vaccine: Nov 12, 2012 Seasonal Allergies Seasonal Allergies: No Surgeries Yes Abdominal, Cardiac, Orthopedic Respiratory Yes COPD Currently Using CPAP: Yes Currently Using BIPAP: Yes Cardiovascular Yes Chronic Edema/Swelling, Hypertension, Peripheral Vascular Neurological Yes (MONO NEURITIS; NEUROPATHY--WHEELCHAIR BOUND) Headaches /Migraines, Neuropathy Reproductive System Hx Reproductive Disorders: No Sexually Transmitted Disease: No HIV/AIDS: No Genitourinary Yes (BRIEFLY ON DIALYSIS IN PAST) Bladder Infection, Kidney Stones, Renal Failure, UTI-Chronic Gastrointestinal Yes (HEPATITIS C--NO TREATMENT. BILARY STENT) Gastroesophageal Reflux, Hepatitis, Gall Bladder Disease Musculoskeletal Yes Degenerate Disk Disease, Arthritis, Rheumatoid Arthritis, Chronic Back Pain Endocrine History of Endocrine Disorders: Yes (MORBID OBESITY; ELEVATED URIC ACID) Endocrine Disorders: Diabetes, Insulin dep HEENT History of HEENT Disorders: No Loss of Vision: Denies Hearing Impairment: Denies Cancer No Psychosocial History of Psychiatric Problem: Yes (EXTENSIVE POLYSUBSTANCE ABUSE, ESPECIALLY RX NARCOTICS) Behavioral Health Disorders: Sleep Difficulties, Anxiety, Depression Integumentary History of Skin or Integumenta: Yes (SKIN GRAFT RIGHT LEG (4 years ago)) Blood Transfusions History of Blood Disorders: No Family Medical History Significant Family History: No Pertinent Family Hx Family Hx: Alcoholism 03 FATHER Diabetes mellitus 03 FATHER Family history: Allergy 03 MOTHER Family history: Asthma 03 MOTHER Family history: Hypertension 03 FATHER 03 MOTHER Review of Systems Constitutional: No no symptoms reported, No see HPI, No chills, No diaphoresis , No dizziness, fever, No malaise, weakness, No weight gain, No weight loss, No other Respiratory: no symptoms reported, see HPI, No cough, No dyspnea on exertion, No hemoptysis, No orthopnea, No phlegm, No short of breath, No stridor, No wheezing Cardiovascular: no symptoms reported, see HPI, No chest pain, No edema, No Hx of Intervention, No palpitations, No syncope, No other Physical Exam Physical Exam Vital Signs Vital Sign - Last 12Hours 09/13/17 19:40 FiO2 50 Capillary Refill : Less Than 3 Seconds General Appearance: No Apparent Distress, Chronically ill, Obese Respiratory: Chest Non Tender, Lungs Clear, Normal Breath Sounds, No Accessory Muscle Use, No Respiratory Distress Cardiovascular: Regular Rate, Rhythm, No Edema, No Gallop, No JVD, No Murmur, Normal Peripheral Pulses Gastrointestinal: Normal Bowel Sounds, No Organomegaly, No Pulsatile Mass, Non Tender, Soft Neurologic/Psychiatric: Alert, Other (bilateral lower extremity hemiparesis with Achilles flexion contractures no evidence for decubitus) Skin: Pallor (mild) Results Results/Procedures Lab Laboratory Tests 09/13/17 15:52 Short Stay Diagnosis Discharge Diagnosis-Short Stay Admission Diagnosis 1. Hypercapnic respiratory failure secondary to inadvertent medication overdose in the form of OxyContin and Xanax. 2. 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 Obstructive sleep apnea reported poor compliance with CPAP. 4. Type II diabetes mellitus requiring basal insulin Final Discharge Diagnosis as per above Conclusion Plan patient was admitted to the intensive care unit for respiratory monitoring. Upon my arrival he was alert and oriented back to baseline mental status with no evidence to suggest underlying infection. We discussed the fact that he likely did take extra narcotic and/or Xanax resulting in inadvertent drug overdose. Discussed the life-threatening nature of this combination of medications and advised that he decrease his OxyContin from 80 mg 3 times a day to twice a day in addition to decreasing Xanax to 0.5 mg every 8 when necessary and do without a possible. As his pain is, neuropathic Cymbalta usage was discussed. Patient was agreeable after discussing side effects. Will initiate 30 mg daily for the first week with food been increased to 60 mg daily. Expectations that it may take several weeks for maximum benefits and that a higher dose than 60 mg may be warranted with follow-up by his primary care physician Dr. Wright recommended in 1-2 weeks. After discussion with his mother who is his primary caregiver she will again begin dispensing his medications and attempt to limit his when necessary short acting narcotic and benzodiazepine use. Copy Copies To 1: GLENN WRIGHT MD Clinical Quality Measures DVT/VTE Risk/Contraindication: Risk Factor Score Per Nursin RFS Level Per Nursing on Admit: 3=High CJ KUNZ MD Sep 14, 2017 13:20
[2017-09-14] MEDS ORDERED: inSUlin DETERMIR 1 UNIT/0.01 ML (LEVEMIR) CHARGE PER UNIT SQ SCH (21:00)
[2017-09-15] MEDS ORDERED: predniSONE 10 MG TAB PO SCH (07:00)
[2017-09-15] MEDS ORDERED: VENlafaxine XR 75 MG (EFFEXOR XR) CAP PO SCH (07:00)
== END 2017-09-14 12:50 | disposition home or self-care (01) ==
LOC: EDUNIT# 15:27 → ER 15:29 → ICU 16:20
PROVIDERS: ADMIT Internal Medicine; ATTEND Internal Medicine
DX: J96.92 Respiratory failure, unspecified with hypercapnia (principal); T40.2X1A Poisoning by other opioids, accidental (unintentional), initial encounter; T42.4X1A Poisoning by benzodiazepines, accidental (unintentional), initial encounter; G58.7 Mononeuritis multiplex; G82.20 Paraplegia, unspecified; G47.33 Obstructive sleep apnea (adult) (pediatric); E11.9 Type 2 diabetes mellitus without complications; Z79.4 Long term (current) use of insulin
CPT/HCPCS: 36415; 71045; 80053; 80306; 81000; 82805; 82962; 83880; 85025; 87804; 94640; 94660

== ENCOUNTER 2017-10-28 09:11 | Outpatient (RCR) | payer MEDICARE, MEDICAID ==
[~2017-10-28 09:11] MED LIST changes: +DULO30CA3 PO; +DULO60CA6 PO
== END 2018-01-26 | disposition home or self-care (01) ==
LOC: LABNPT 09:11 → EDSTATUS 10-31 12:18
PROVIDERS: ATTEND Nurse Practitioner
DX: E83.52 Hypercalcemia (principal)

== ENCOUNTER 2018-04-19 23:37 | Emergency (ER) | payer MEDICARE, MEDICAID ==
[~2018-04-19] VITALS: Ht 177.8 cm; Wt 139.9 kg
--- NOTE | 2018-04-20 01:30 | ED General ---
General Chief Complaint: Respiratory Problems Stated Complaint: TROUBLE WITH OXYGEN LEVEL, GOES UP AND DOWN, 85/90 Nursing Triage Note: spo2 85-95% Nursing Sepsis Screen: No Definite Risk Source of Information: Patient, Family (MOM) History of Present Illness Date Seen by Provider: Apr 19, 2018 Time Seen by Provider: 23:50 Initial Comments PT ARRIVES WITH MOTHER VIA POV FROM HOME PT HAS COPD AND IS O2 DEPENDENT ON 2L/NC CONTINUOUSLY PT RANDOMLY CHECKS HOME O2 SATS WITH FINGER MONITORING DEVICE, AND TODAY HE HAS HAD VERY INCONSISTENT READINGS--FROM 79-98% ALL DAY--WILL BE COMPLETELY DIFFERENT WITHIN A FEW SECONDS OF EACH READING. STATES WHEN HE CHECKED IT FIRST THING THIS MORNING ON WAKING IT WAS 80-97%, SO HE STAYED ON HIS CPAP FOR A COUPLE OF HOURS LONGER. MOM STATES HIS OXYGEN "HAS BEEN LOW FOR SEVERAL HOURS" PT STATES HE DOES NOT HAVE ANY SYMPTOMS OF SHORTNESS OF BREATH, NO CHEST PAIN , NO FEVER, NO CHANGE IN CHRONIC COUGH, NO SWELLING IN LEGS/ FEET OR PAIN IN CALVES, NO PALPITATIONS. HAS FELT COMPLETELY FINE STATES WHEN HE HAS HAD LOW O2 SATS, HE TYPICALLY FEELS VERY BAD AND IS VERY SHORT OF BREATH--HE IS NOT HAVING ANY OF THOSE SYMPTOMS TODAY THIS IS NOT A NEW DEVICE, AND MOM STATES WHEN SHE CHECKS HER PULSE OX, IT IS NORMAL. PT CONTINUES TO SMOKE 1 1/2 PPD PCP: DR. SHAHID Allergies and Home Medications Allergies Coded Allergies: hydrocodone (Verified Allergy, Unknown, TAKES OXYCODONE AT HOME, 05/05/16) STATES IS NOT ALLERGIC TO THIS MED latex (Verified Allergy, Unknown, 05/05/16) Home Medications Albuterol Sulfate 8.5 Gm Hfa.aer.ad, 2 PUFF IH Q4H PRN for SHORTNESS OF BREATH, (Reported) Albuterol Sulfate 2.5 Mg/3 Ml Vial.neb, 2.5 MG NEB Q4H PRN for WHEEZING, ( Reported) Alprazolam 1 Mg Tablet, 1 MG PO TID PRN for ANXIETY, (Reported) Cholecalciferol (Vitamin D3) 1,000 Unit Capsule, 1,000 UNIT PO DAILY, (Reported) Duloxetine HCl 30 Mg Capsule., 30 MG PO DAILY Prescribed by: CJ CEBALLOS on 09/14/17 0825 Duloxetine HCl 60 Mg Capsule.dr, 60 MG PO DAILY Prescribed by: CJ CEBALLOS on 09/14/17 0825 Furosemide 20 Mg Tablet, 20 MG PO DAILY PRN for SWELLING, (Reported) Gabapentin 800 Mg Tablet, 800 MG PO TID, (Reported) Insulin Detemir 100 Unit/1 Ml Insuln.pen, 15 UNITS SC HS, (Reported) Insulin Lispro 100 Unit/1 Ml Insuln.pen, SC AC, (Reported) Metoprolol Succinate 50 Mg Tab.er.24h, 50 MG PO DAILY, (Reported) Nystatin 15 Gm Powder, TP DAILY PRN for RASH, (Reported) Ondansetron 4 Mg Tab.rapdis, 4 MG PO Q4H PRN for NAUSEA/VOMITING-1ST LINE, ( Reported) Oxycodone HCl 30 Mg Tablet, 30 MG PO Q6H PRN for PAIN-SEVERE, (Reported) Oxycodone HCl 80 Mg Tab.er.12h, 80 MG PO TID, (Reported) Potassium Chloride 8 Meq Tablet.er, 8 MEQ PO DAILY Prescribed by: CJ CEBALLOS on 05/04/17 1002 Prednisone 10 Mg Tab, 10 MG PO Q48H, (Reported) Prednisone 20 Mg Tab, 20 MG PO Q48H, (Reported) Promethazine HCl 25 Mg Tablet, 25 MG PO BID PRN for NAUSEA/VOMITING-2ND LINE, ( Reported) Venlafaxine HCl 75 Mg Cap.er.24h, 75 MG PO DAILY, (Reported) Patient Home Medication List Home Medication List Reviewed: Yes Review of Systems Review of Systems Constitutional: no symptoms reported Respiratory: see HPI Cardiovascular: no symptoms reported Past Hjxruxq-Oggxst-Lcwrde Hx Patient Social History Alcohol Use: Past History (HISTORY OF ABUSE, CLAIMS NO RECENT USE) Recreational Drug Use: Yes (RX DRUG ABUSE--ESPECIALLY NARCOTICS AND BENZODIAZEPINES, WITH MULTIPLE [id number]--DESOUZA SREQUIRED INTUBATION IN THE PAST DUE TO OVERDOSES. ALSO THC USE) Drug of Choice: EXTENSVE POLYSUBSTANCE ABUSE, DEANDRA. RX NARCOTICS & BENZO'S- MULTIPLE OD'S Smoking Status: Current Everyday Smoker (08/19 PPD) Type Used: Cigarettes 2nd Hand Smoke Exposure: No Recent Foreign Travel: No Contact w/Someone Who Travel: No Recent Infectious Disease Expo: No Recent Hopitalizations: No Immunizations Up To Date Tetanus Booster (TDap): Unknown PED Vaccines UTD: Yes Date of Pneumonia Vaccine: Nov 12, 2012 Seasonal Allergies Seasonal Allergies: No Past Medical History Surgeries: Yes (BILIARY STENT; BACK SURGERY-LUMBAR HERNIATED DISC; CARDIAC CATH 2009-NORMAL; NERVE BIOPSY RIGHT LEG; SKIN GRAFTS) Abdominal, Cardiac, Orthopedic Respiratory: Yes (CHRONIC RESPIRATORY FAILURE--ON VENT MULTPLE TIMES, SOME INTUBATIONS DUE TO OVERDOSES; O2 AT 2L/NC CONTINOUSLY. PT CONTINUES TO SMOKE 1 1/2 PPD) Pneumonia, COPD Currently Using CPAP: Yes Currently Using BIPAP: Yes Cardiac: Yes (VASCULITIS; CHRONIC LEG EDEMA--RIGHT > LEFT--THIS IS SIDE MORE AFFECTED BY LANCE) Chronic Edema/Swelling, Hypertension, Peripheral Vascular Neurological: Yes (MONO NEURITIS; NEUROPATHY--WHEELCHAIR BOUND) Headaches /Migraines, Neuropathy Reproductive Disorders: No Sexually Transmitted Disease: No HIV/AIDS: No Genitourinary: Yes (BRIEFLY ON DIALYSIS IN PAST) Bladder Infection, Kidney Stones, Renal Failure, UTI-Chronic Gastrointestinal: Yes (HEPATITIS C--NO TREATMENT. BILARY STENT) Gastroesophageal Reflux, Liver Disease/Jaundice, Hepatitis, Gall Bladder Disease Musculoskeletal: Yes (ELEVATED URIC ACID; WEARS BRACES ON BOTH LOWER LEGS; BACK SURGERY-LUMBAR DISCS; CHRONIC GENERALIZED PAIN COMPLAINTS--NARCOTIC DEPENDENT; WHEELCHAIR BOUND DUE TO MORBID OBESITY, NEUROPATHY, GENERALIZED PAIN AND DEBILITY. CAN STAND FOR TRANSFERS. ) Degenerate Disk Disease, Arthritis, Rheumatoid Arthritis, Chronic Back Pain Endocrine: Yes (MORBID OBESITY; ELEVATED URIC ACID) Diabetes, Insulin dep HEENT: No Loss of Vision: Denies Hearing Impairment: Denies Cancer: No Psychosocial: Yes (EXTENSIVE POLYSUBSTANCE ABUSE, ESPECIALLY RX NARCOTICS + BENZO'S --MULTIPLE OVERDOSES, HAS REQUIRED INTUBATION DUE TO OVERDOSES IN PAST. ) Sleep Difficulties, Anxiety, Depression Integumentary: Yes (SKIN GRAFT RIGHT LEG -3RD DEGREE LANCE 06/2013 DUE TO PT FALLING ASLEEP WITH LIGHTED CIGARETTE; CELLULITS RIGHT LEG. ) Blood Disorders: No Family Medical History Alcoholism 03 FATHER Diabetes mellitus 03 FATHER Family history: Allergy 03 MOTHER Family history: Asthma 03 MOTHER Family history: Hypertension 03 FATHER 03 MOTHER No Pertinent Family Hx 09/2015--SEPTIC SHOCK WITH ACUTE RESPIRATORY FAILURE AND RENAL FAILURE--ON DIALYSIS AND VENTILATOR--HAD PNEUMONIA AND UTI Physical Exam Vital Signs Vital Signs - First Documented 04/19/18 23:45 Temp 98.5 Pulse 85 Resp 18 B/P (MAP) 120/102 (108) Pulse Ox 95 O2 Delivery Nasal Cannula O2 Flow Rate 2.00 Capillary Refill : Less Than 3 Seconds Height, Weight, BMI Height: 5'10.00" Weight: 308lbs. 6.4oz. [id number]; 43.6 BMI Method:Stated General Appearance: No Apparent Distress, Obese, Other (SMILING, TALKATIVE, PLEASANT, DOES NOT APPEAR TO BE IN ANY DISCOMFORT OR DISTRESS. REEKS OF CIGARETTES. ) Neck: Normal Inspection Respiratory: Normal Breath Sounds, No Accessory Muscle Use, No Respiratory Distress Cardiovascular: Regular Rate, Rhythm, No JVD, No Murmur Gastrointestinal: Soft Extremity: Non Tender, Pedal Edema (2+ BILATERALLY--DIFFICULT TO DETERMINE DUE TO BODY HABITUS; CHRONIC VENOUS STASIS CHANGES TO BILATERAL LOWER LEGS--RIGHT > LEFT. ) Neurologic/Psychiatric: Alert, Oriented x3, Normal Mood/Affect Skin: Normal Color, Warm/Dry, Tattoos/Piercings (MULTIPLE TATTOOS), Other (OLD LANCE TO RIGHT LOWER LEG. ) Procedures/Interventions Date of ETT Placement: Feb 25, 2016 Time of ETT Placement: 1508 Progress/Results/Core Measures Suspected Sepsis Recent Fever Within 48 Hours: No Infection Criteria Present: None New/Unexplained Altered Menta: No Sepsis Screen: No Definite Risk SIRS Temperature:98.5 Pulse: 85 Respiratory Rate: 18 Blood Pressure 120 /102 Mean: 108 Results/Orders My Orders Orders - OSCAR HOPKINS DO Chest Pa/Lat (2 View) (04/20/18 00:01) Vital Signs/I&O Capillary Refill : Less Than 3 Seconds Blood Pressure Mean: 108 Progress Note : Progress Note COMPLETELY ASYMPTOMATIC DURING ER STAY AND O2 SATS > 95% FOR ENTIRE ER STAY CHECKED PT'S HOME FINGER O2 SAT MONITOR AND WAS GETTING ESSENTIALLY THE SAME READINGS. PT FEELS COMFORTABLE GOING HOME Diagnostic Imaging Comments CXR--NO ACUTE PROCESS, PENDING RADIOLOGIST REVIEW Reviewed: Reviewed by Me Departure Impression Primary Impression: COPD OXYGEN DEPENDENT Additional Impression: Tobacco abuse Disposition: 01 HOME, SELF-CARE Condition: Stable Departure-Patient Inst. Referrals: GLENN SHAHID MD (PCP/Family) Primary Care Physician Patient Instructions: Chronic Obstructive Pulmonary Disease (COPD), Including Emphysema, Oxygen Therapy, Adult (DC) Add. Discharge Instructions: CONTINUE ALL YOUR REGULAR MEDICATIONS AND OXYGEN PRESCRIBED RETURN TO ER IF SYMPTOMS WORSEN All discharge instructions reviewed with patient and/or family. Voiced understanding. OSCAR HOPKINS DO Apr 20, 2018 01:30
[2018-04-20 01:36] VITALS: BP 132/88
--- NOTE | 2018-04-20 07:44 | Diagnostic Imaging Report ---
INDICATION: Shortness of breath. Comparison with 09/13/2017. FINDINGS: PA and lateral chest. The lungs are well-aerated. There are no infiltrates. No air trapping. Heart is not enlarged. There is no pulmonary edema. No hilar adenopathy. No pneumothorax or pleural effusions. IMPRESSION: No acute abnormalities. Dictated by: Dictated on workstation # [id number]
== END 2018-04-20 01:38 | disposition home or self-care (01) ==
LOC: EDUNIT# 23:37 → ER 23:39
DX: J44.9 Chronic obstructive pulmonary disease, unspecified (principal); I10 Essential (primary) hypertension; I73.9 Peripheral vascular disease, unspecified; G43.909 Migraine, unspecified, not intractable, without status migrainosus; B19.20 Unspecified viral hepatitis C without hepatic coma; M06.9 Rheumatoid arthritis, unspecified; E11.42 Type 2 diabetes mellitus with diabetic polyneuropathy; E66.01 Morbid (severe) obesity due to excess calories; F41.9 Anxiety disorder, unspecified; F32.9 Major depressive disorder, single episode, unspecified; K21.9 Gastro-esophageal reflux disease without esophagitis; Z87.19 Personal history of other diseases of the digestive system; Z87.442 Personal history of urinary calculi; Z68.41 Body mass index [BMI] 40.0-44.9, adult; Z87.448 Personal history of other diseases of urinary system; Z99.81 Dependence on supplemental oxygen; Z88.5 Allergy status to narcotic agent; Z94.5 Skin transplant status; Z91.040 Latex allergy status; Z79.51 Long term (current) use of inhaled steroids; Z79.4 Long term (current) use of insulin; Z79.52 Long term (current) use of systemic steroids; Z87.891 Personal history of nicotine dependence; Z87.01 Personal history of pneumonia (recurrent)
CPT/HCPCS: 71046

== ENCOUNTER 2018-06-19 21:31 | Inpatient (IN) | payer MEDICARE, MEDICAID ==
[~2018-06-19] VITALS: Ht 175.3 cm; Wt 149.2 kg
--- OUTSIDE RECORDS SUMMARY | 2018-06-19 21:41 | XMS REPORT | Clinical Summary ---
Author Author [facility] Organization [facility] Address Unknown Phone Unavailable Care Team Providers Care Necktie Stitcher Name Role Phone Juanpablo Forman MD Unavailable Louise Peters MD Unavailable Codey Suárez MD Unavailable Frantz Sidhu MD Unavailable Jenny Miller MD Unavailable Marisabel Blsa DO Unavailable Kleber Jay MD Unavailable Johnny Brar MD Unavailable Unavailable Ivan Gomez MD Unavailable Berta Davis RN Unavailable Glenny Ocampo DO Unavailable Saravanan Kc MD Unavailable Simon España MD [id number] Gustavo Sandoval DO [id number] Yaritza López RN Unavailable Unavailable Gavin Schneider MD Unavailable Berta Hurst APRN Unavailable Sonya Johnson MD Unavailable Kel Wright MD PCP Source Comments Some departments are not documenting in the electronic medical record. If you do not see the information that you expected, contact Release of Information in the Health Information Management department at [phone] for further assistance in locating additional records.[facility] Allergies Active Allergy Reactions Severity Noted [...] than 10% or unspecified amount Peripheral neuropathy 11/08/2010 Weakness generalized 02/28/2010 Hepatitis C 12/23/2009 [...] PHYSICAL (COMPREHENSIVE) 1972 EXAM PERTUSSIS VACCINE 1976 HIV SCREENING 1980 TETANUS VACCINE 1982 COLORECTAL CANCER 2015 SCREENING SHINGLES RECOMBINANT 2015 VACCINE (1 of 2) INFLUENZA VACCINE 03/18/2018 Results Not on filefrom Last 3 Months
--- OUTSIDE RECORDS SUMMARY | 2018-06-19 21:41 | XMS REPORT | Clinical Summary ---
Author Author [facility] Organization [facility] Address Unknown Phone Unavailable Care Team Providers Care Neon Sign Worker Name Role Phone PCP Unavailable Allergies Not on File Current Medications Not on file Active Problems Not on file Social History Tobacco Use Types Packs/Day Years Used Date Never Assessed Sex Assigned at Date Recorded Not on file Last Filed Vital Signs Not on file Plan of Treatment Not on file Results Not on filefrom Last 3 Months
--- OUTSIDE RECORDS SUMMARY | 2018-06-19 21:42 | XMS REPORT ---
Author Author JERSON SUAREZ Organization [facility] Address [address] [place] [address] Care Team Providers Care Industrial Maintenance Mechanic Name Role Phone JERSON SUAREZ Unavailable PROBLEMS Type Condition ICD9-CM Code [id number] Code Onset Dates Condition Status SNOMED Code Problem Panic disorder F41.0 Active [id number] ALLERGIES No Information ENCOUNTERS Encounter Location Date Diagnosis [facility] [id number] [place] [phone] Jun, [facility] [address] [address] Jun, [facility] [id number] [place] [id number] Nov, Dental examination Z01.20 [facility] [id number] [place] [phone] Oct, Dental examination Z01.20 [facility] [address] [id number] [place] [phone] Sep, Dental examination Z01.20 [facility] [address] [id number] [place] [phone] Aug, Panic disorder F41.0 [facility] [address] [id number] [place] [id number] Aug, Dental examination Z01.20 [facility] [address] [id number] [place] [address] [phone] Aug, Panic disorder F41.0 [facility] [address] [id number] [place] [address] [id number] Aug, Dental examination Z01.20 [facility] [address] [place] [address] Jul, Panic disorder F41.0 [facility] [address] [place] [address] Jun, Panic disorder F41.0 [facility] [address], [place] [address] May, [facility] [address] [id number] May, Dental examination Z01.20 [facility] [id number] [place] [address], [place] [address] May, [facility] [id number] [place] [phone] May, Panic disorder F41.0 [facility] [address] [place] [address] May, [facility] [address] [place] [address] May, [facility] [address] [place] [address] Apr, [facility] [address] [place] [address] Mar, [facility] [address] [place] [address] Mar, Panic disorder F41.0 [facility] [address] [place] [address] Jan, Panic disorder F41.0 [facility] [address] [place] [address] December, Panic disorder F41.0 [facility] [address] [place] [address] Mar, [facility] [address] [place] [address] Mar, [facility] [address] [place] [address] 15 Sep, 2009 [facility] [address] [place] [address] Aug, [facility] [address] [address] Jul, [facility] [id number] [place] [phone] Jul, [facility] [id number] [place] [phone] Jun, [facility] [id number] [place] [phone] May, [facility] [id number] [place] [address] [phone] May, [facility] [address], [place] [address] May, [facility] [address], [place] [address] May, [facility] [address], [place] [address] May, IMMUNIZATIONS No Known Immunizations SOCIAL HISTORY Never Assessed REASON FOR VISIT no-show for DM ed PLAN OF CARE VITAL SIGNS MEDICATIONS Unknown Medications RESULTS No Results PROCEDURES No Known procedures INSTRUCTIONS MEDICATIONS ADMINISTERED No Known Medications MEDICAL (GENERAL) HISTORY Type Description Date Medical [...]
--- OUTSIDE RECORDS SUMMARY | 2018-06-19 21:42 | XMS REPORT ---
Author Author RAPHAEL AMEZQUITA Organization [facility] Address [address] [place] [address] Care Team Providers Care Ditching Machine Engineer Name Role Phone RAPHAEL AMEZQUITA Unavailable PROBLEMS Type Condition ICD9-CM Code TCB80-CC Code Onset Dates Condition Status SNOMED Code Problem Panic disorder F41.0 Active [id number] ALLERGIES No Information ENCOUNTERS Encounter Location Date Diagnosis [facility] [id number] [place] [phone] Jun, [facility] [address] [address] Jun, [facility] [id number] [place] [id number] Nov, Dental examination Z01.20 [facility] [id number] [place] [phone] Oct, Dental examination Z01.20 [facility] [address] [id number] [place] [id number] Sep, Dental examination Z01.20 [facility] [address] [id number] [place] [address] Aug, Panic disorder F41.0 [facility] [id number] [place] [id number] Aug, Dental examination Z01.20 [facility] [id number] [place] [phone] Aug, Panic disorder F41.0 [facility] [address] [id number] [place] [id number] Aug, Dental examination Z01.20 [facility] [address] [place] [address] Jul, Panic disorder F41.0 [facility] [address] [place] [address] Jun, Panic disorder F41.0 [facility] [address] [place] [address] May, [facility] [address] [id number] May, Dental examination Z01.20 [facility] [id number] [place] [address], [place] [address] May, [facility] [id number] [place] [phone] May, Panic disorder F41.0 [facility] [address], [place] [address] May, [facility] [address] [place] [address] May, [facility] [address], [place] [address] Apr, [facility] [address], [place] [address] Mar, [facility] [address] [place] [address] Mar, Panic disorder F41.0 [facility] [address], [place] [address] Jan, Panic disorder F41.0 [facility] [address], [place] [address] December, Panic disorder F41.0 [facility] [address] [place] [address] Mar, [facility] [address] [place] [address] Mar, [facility] [address] [place] [address] 15 Sep, 2009 [facility] [address] [place] [address] Aug, [facility] [address] [address] Jul, [facility] [id number] [place] [address] Jul, [facility] [id number] [place] [address] Jun, [facility] [id number] [place] [address] May, [facility] [id number] [place] [id number] May, [facility] [address] [place] [address] May, [facility] [address], [place] [address] May, [facility] [address], [place] [address] May, IMMUNIZATIONS No Known Immunizations SOCIAL HISTORY [...]
[2018-06-19] MEDS ORDERED: SITA1TAB6 (21:52)
--- NOTE | 2018-06-19 21:57 | ED General ---
General Chief Complaint: Respiratory Problems Stated Complaint: SOA Source of Information: Patient, EMS, Family (mom) Exam Limitations: No Limitations History of Present Illness Date Seen by Provider: Jun 19, 2018 Time Seen by Provider: 21:47 Initial Comments Patient presents to ER by EMS with chief complaint that his mom found him and he was acting very somnolent and acting like he is short of breath leading to wake up. She's been feeling this way for couple days. It's not sure what's going on. He has had history of pneumonia in the past similar presentation. Patient's not having any chest pain but he does have a history of neuropathy and ftu-bggsaaj-pxmcxeibh diabetes. He takes OxyContin ER to 80 mg a day and to 40 mg. Typically he'll take this much. He says in the past to use cocaine and methamphetamines last use being about 8 years ago. He also used to smoke marijuana about that time. He is smoking about 3-4 cigarettes a day. He is not having a cough fever or chills nausea vomiting or diarrhea. He had a bowel movement this morning was normal. EMS reports the patient had a good bounding pulse but blood pressure was right around 100 systolic over 60. They started about 300 cc of fluids and gave him high flow oxygen because his oxygen sats were in the low 80s on room air and that brought him up into the mid 90s percent. Allergies and Home Medications Allergies Coded Allergies: hydrocodone (Verified Allergy, Unknown, TAKES OXYCODONE AT HOME, 05/05/16) STATES IS NOT ALLERGIC TO THIS MED latex (Verified Allergy, Unknown, 05/05/16) Home Medications Albuterol Sulfate 8.5 Gm Hfa.aer.ad, 2 PUFF IH Q4H PRN for SHORTNESS OF BREATH, (Reported) Albuterol Sulfate 2.5 Mg/3 Ml Vial.neb, 2.5 MG NEB Q4H PRN for WHEEZING, ( Reported) Alprazolam 1 Mg Tablet, 1 MG PO TID PRN for ANXIETY, (Reported) Furosemide 20 Mg Tablet, 20 MG PO DAILY PRN for SWELLING, (Reported) Gabapentin 800 Mg Tablet, 800 MG PO TID, (Reported) Insulin Detemir 100 Unit/1 Ml Insuln.pen, 15 UNITS SC HS, (Reported) Insulin Lispro 100 Unit/1 Ml Insuln.pen, SC AC, (Reported) Metoprolol Succinate 50 Mg Tab.er.24h, 50 MG PO DAILY, (Reported) Oxycodone HCl 30 Mg Tablet, 30 MG PO Q6H PRN for PAIN-SEVERE, (Reported) Oxycodone HCl 80 Mg Tab.er.12h, 80 MG PO TID, (Reported) Prednisone 10 Mg Tab, 10 MG PO Q48H, (Reported) Prednisone 20 Mg Tab, 20 MG PO Q48H, (Reported) Promethazine HCl 25 Mg Tablet, 25 MG PO BID PRN for NAUSEA/VOMITING-2ND LINE, ( Reported) Patient Home Medication List Home Medication List Reviewed: Yes Review of Systems Review of Systems Constitutional: No chills, No diaphoresis, No fever; malaise, weakness EENTM: No ear pain, No eye pain Respiratory: No cough, No short of breath, No wheezing Cardiovascular: No chest pain, No Hx of Intervention, No palpitations Gastrointestinal: No abdominal pain, No constipation, No diarrhea, No nausea, No vomiting Genitourinary: No discharge, No dysuria Musculoskeletal: No back pain, No joint pain Skin: No pruritus, No rash Psychiatric/Neurological: Denies Headache, Denies Numbness Past Czbbxrj-Iietji-Dorcrx Hx Patient Social History Alcohol Use: Denies Use Recreational Drug Use: Yes (7 years ago) Drug of Choice: EXTENSVE POLYSUBSTANCE ABUSE, DEANDRA. RX NARCOTICS & BENZO'S- MULTIPLE OD'S Smoking Status: Current Everyday Smoker Type Used: Cigarettes (0.25 ppd) 2nd Hand Smoke Exposure: No Recent Foreign Travel: No Contact w/Someone Who Travel: No Recent Hopitalizations: No Immunizations Up To Date Tetanus Booster (TDap): Unknown PED Vaccines UTD: Yes Date of Pneumonia Vaccine: Nov 12, 2012 Seasonal Allergies Seasonal Allergies: No Past Medical History Surgeries: Yes Abdominal, Cardiac, Orthopedic Respiratory: Yes Pneumonia, COPD Currently Using CPAP: Yes Currently Using BIPAP: Yes Cardiac: Yes Chronic Edema/Swelling, Hypertension, Peripheral Vascular Neurological: Yes (MONO NEURITIS; NEUROPATHY--WHEELCHAIR BOUND) Headaches /Migraines, Neuropathy Reproductive Disorders: No Sexually Transmitted Disease: No HIV/AIDS: No Genitourinary: Yes (BRIEFLY ON DIALYSIS IN PAST) Bladder Infection, Kidney Stones, Renal Failure, UTI-Chronic Gastrointestinal: Yes (HEPATITIS C--NO TREATMENT. BILARY STENT) Gastroesophageal Reflux, Liver Disease/Jaundice, Hepatitis, Gall Bladder Disease Musculoskeletal: Yes Degenerate Disk Disease, Arthritis, Rheumatoid Arthritis, Chronic Back Pain Endocrine: Yes (MORBID OBESITY; ELEVATED URIC ACID) Diabetes, Insulin dep HEENT: No Loss of Vision: Denies Hearing Impairment: Denies Cancer: No Psychosocial: Yes Sleep Difficulties, Anxiety, Depression Integumentary: Yes Blood Disorders: No Family Medical History Alcoholism 03 FATHER Diabetes mellitus 03 FATHER Family history: Allergy 03 MOTHER Family history: Asthma 03 MOTHER Family history: Hypertension 03 FATHER 03 MOTHER No Pertinent Family Hx 09/2015--SEPTIC SHOCK WITH ACUTE RESPIRATORY FAILURE AND RENAL FAILURE--ON DIALYSIS AND VENTILATOR--HAD PNEUMONIA AND UTI Physical Exam-Suspected Sepsis Physical Exam Vital Signs Vital Signs - First Documented Capillary Refill : Height, Weight, BMI Height: 5'10.00" Weight: 308lbs. 6.4oz. 139.653792fs; 43.6 BMI Method:Stated General Appearance: Obese (morbid), Other (somnolent) Eyes: Bilateral Eye Normal Inspection, Bilateral Eye PERRL, Bilateral Eye EOMI HEENT: PERRL/EOMI, Normal ENT Inspection; No Moist Mucous Membranes Neck: Full Range of Motion, Normal Inspection Respiratory: Chest Non Tender, No Accessory Muscle Use, No Respiratory Distress , Decreased Breath Sounds Cardiovascular: Regular Rate, Rhythm (heart rate 96), No Edema, Normal Peripheral Pulses Gastrointestinal: Normal Bowel Sounds, Non Tender, Soft Extremity: Normal Capillary Refill, Non Tender Neurologic/Psychiatric: Oriented x3, No Motor/Sensory Deficits, Normal Mood/ Affect, art director II-XII Norm as Tested, Other (somnolent) Skin: normal color, warm/dry Focused Exam Lactate Level 06/19/18 21:40: Lactic Acid Level 2.48*H Lactic Acid Level Laboratory Tests Test 06/19/18 21:40 Lactic Acid Level 2.48 MMOL/L (0.50-2.00) *H Procedures/Interventions Date of ETT Placement: Feb 25, 2016 Time of ETT Placement: 1508 Progress/Results/Core Measures Suspected Sepsis SIRS Temperature: Pulse: Respiratory Rate: Laboratory Tests 06/19/18 21:40: White Blood Count 13.9H Blood Pressure / Mean: 06/19/18 21:40: Lactic Acid Level 2.48*H Laboratory Tests 06/19/18 21:40: Creatinine 1.65H, INR Comment 1.0, Platelet Count 184, Total Bilirubin 0.5 Results/Orders Lab Results Laboratory Tests Test 06/19/18 21:40 06/19/18 22:45 06/20/18 00:10 Range/Units White Blood Count 13.9 H 4.3-11.0 10^3/uL Red Blood Count 4.28 L 4.35-5.85 10^6/uL Hemoglobin 13.2 L 13.3-17.7 G/DL Hematocrit 41 40-54 % Mean Corpuscular Volume 96 80-99 FL Mean Corpuscular Hemoglobin 31 25-34 PG Mean Corpuscular Hemoglobin Concent 32 32-36 G/DL Red Cell Distribution Width 15.0 H 10.0-14.5 % Platelet Count 184 130-400 10^3/uL Mean Platelet Volume 10.6 H 7.4-10.4 FL Neutrophils (%) (Auto) 73 42-75 % Lymphocytes (%) (Auto) 15 12-44 % Monocytes (%) (Auto) 9 0-12 % Eosinophils (%) (Auto) 2 0-10 % Basophils (%) (Auto) 0 0-10 % Neutrophils # (Auto) 10.1 H 1.8-7.8 X 10^3 Lymphocytes # (Auto) 2.1 1.0-4.0 X 10^3 Monocytes # (Auto) 1.3 H 0.0-1.0 X 10^3 Eosinophils # (Auto) 0.3 0.0-0.3 10^3/uL Basophils # (Auto) 0.1 0.0-0.1 10^3/uL Prothrombin Time 13.6 12.2-14.7 SEC INR Comment 1.0 0.8-1.4 Activated Partial Thromboplast Time 28 24-35 SEC Sodium Level 137 135-145 MMOL/L Potassium Level 4.0 3.6-5.0 MMOL/L Chloride Level 101 98-107 MMOL/L Carbon Dioxide Level 24 21-32 MMOL/L Anion Gap 12 5-14 MMOL/L Blood Urea Nitrogen 16 7-18 MG/DL Creatinine 1.65 H 0.60-1.30 MG/DL Estimat Glomerular Filtration Rate 44 BUN/Creatinine Ratio 10 Glucose Level 126 H 70-105 MG/DL Lactic Acid Level 2.48 *H 0.50-2.00 MMOL/L Calcium Level 11.4 H 8.5-10.1 MG/DL Corrected Calcium 11.7 H 8.5-10.1 MG/DL Magnesium Level 1.8 1.8-2.4 MG/DL Total Bilirubin 0.5 0.1-1.0 MG/DL Aspartate Amino Transf (AST/SGOT) 25 5-34 U/L Alanine Aminotransferase (ALT/SGPT) 34 0-55 U/L Alkaline Phosphatase 60 40-136 U/L B-Type Natriuretic Peptide 43.6 <100.0 PG/ML Total Protein 6.4 6.4-8.2 GM/DL Albumin 3.6 3.2-4.5 GM/DL Urine Color JER H Urine Clarity SLIGHTLY CLOUDY Urine pH 5 5-9 Urine Specific [place] 1.025 H 1.016-1.022 Urine Protein 3+ H NEGATIVE Urine Glucose (UA) NEGATIVE NEGATIVE Urine Ketones 1+ H NEGATIVE Urine Nitrite NEGATIVE NEGATIVE Urine Bilirubin 2+ H NEGATIVE Urine Urobilinogen 4 H NORMAL MG/DL Urine Leukocyte Esterase 2+ H NEGATIVE Urine RBC (Auto) 2+ H NEGATIVE Urine RBC 10-25 H /HPF Urine WBC 2-5 /HPF Urine Crystals PRESENT H /LPF Urine Amorphous Sediment FEW JUHI URATES H /LPF Urine Bacteria NONE /HPF Urine Casts NONE /LPF Urine Mucus NEGATIVE /LPF Urine Culture Indicated NO Urine Opiates Screen POSITIVE H NEGATIVE Urine Oxycodone Screen POSITIVE H NEGATIVE Urine Methadone Screen NEGATIVE NEGATIVE Urine Propoxyphene Screen NEGATIVE NEGATIVE Urine Barbiturates Screen NEGATIVE NEGATIVE Ur Tricyclic Antidepressants Screen NEGATIVE NEGATIVE Urine Phencyclidine Screen NEGATIVE NEGATIVE Urine Amphetamines Screen NEGATIVE NEGATIVE Urine Methamphetamines Screen NEGATIVE NEGATIVE Urine Benzodiazepines Screen POSITIVE H NEGATIVE Urine Cocaine Screen NEGATIVE NEGATIVE Urine Cannabinoids Screen NEGATIVE NEGATIVE Blood Gas Puncture Site LEFT RADIAL Blood Gas Patient Temperature 98.7 Arterial Blood pH 7.20 *L 7.37-7.43 Arterial Blood Partial Pressure CO2 73 *H 35-45 MMHG Arterial Blood Partial Pressure O2 74 L 79-93 MMHG Arterial Blood HCO3 27 23-27 MMOL/L Arterial Blood Total CO2 29.5 21.0-31.0 MMOL/L Arterial Blood Oxygen Saturation 93 L 94-100 % Arterial Blood Base Excess 0.0 -2.5-2.5 MMOL/L Yonathan Test YES-POS Blood Gas Ventilator Setting NO Blood Gas Inspired Oxygen 6L My Orders Orders - LALI GUTIERREZ BNP (06/19/18 21:46) Drug Screen Stat (Urine) (06/19/18 21:46) Magnesium (06/19/18 21:46) Abdomen/Kub 1view (06/19/18 21:46) Albuterol/Ipra Inhalation Soln (Duoneb I (06/19/18 22:00) Saline Lock/Iv-Start (06/19/18 21:46) Ns Iv 1000 Ml (Sodium Chloride 0.9%) (06/19/18 22:00) Cbc With Automated Diff (06/19/18 21:46) Comprehensive Metabolic Panel (06/19/18 21:46) Blood Culture (06/19/18 21:46) Sputum Culture (06/19/18 21:46) Urinalysis (06/19/18 21:46) Urine Culture (06/19/18 21:46) Protime With Inr (06/19/18 21:46) Partial Thromboplastin Time (06/19/18 21:46) Chest 1 View, Ap/Pa Only (06/19/18 21:46) Saline Lock/Iv-Start (06/19/18 21:46) Saline Lock/Iv-Start (06/19/18 21:46) Vital Signs Adult Sepsis Patie Q15M (06/19/18 21:46) O2 (06/19/18 21:46) Remove Rings In Anticipation O (06/19/18 21:46) Lactic Acid Analyzer (06/19/18 21:46) Piperacillin Sodium/Tazobactam (Zosyn Vi (06/19/18 22:00) Svn Small Volume Nebulizer (06/19/18 21:46) Continuous Ekg Monitoring (06/19/18 22:00) Ekg Tracing (06/19/18 22:00) Arterial Blood Gas (06/19/18 23:18) Ct Abd/Pelvis Wo(Kidney Stone) (06/19/18 23:18) Arterial Blood Draw (06/20/18 ) Methylprednisolone Sod Succ (Solu-Medrol (06/20/18 01:00) Cefepime 2 Gm Ivpb (1x Dose) (06/20/18 01:00) Medications Given in ED Current Medications Medications Dose Ordered Sig/Lashawn Route Start Time Stop Time Status Last Admin Dose Admin Albuterol/ Ipratropium 3 ml ONCE ONCE INH 06/19/18 22:00 06/19/18 22:01 DC 06/19/18 21:57 3 ML Piperacillin Sod/ Tazobactam Sod 4.5 gm/Sodium Chloride 100 ml @ 200 mls/hr ONCE ONCE IV 06/19/18 22:00 06/19/18 22:29 DC 06/19/18 22:27 200 MLS/HR Sodium Chloride 2,250 ml @ 2,250 mls/hr ONCE ONCE IV 06/19/18 22:00 06/19/18 22:59 DC 06/19/18 22:07 2,250 MLS/HR Vital Signs/I&O 06/19/18 06/19/18 06/19/18 21:32 21:32 21:57 Temp 98.8 Pulse 95 Resp 18 B/P (MAP) 97/57 (70) Pulse Ox 92 92 93 O2 Delivery Nasal Cannula Nasal Cannula Nasal Cannula O2 Flow Rate 4.00 4.00 5.00 06/20/18 00:00 Intake Total 400 ml Balance 400 ml Capillary Refill : Progress Note #1: Time: 21:58 Progress Note Start with a breathing treatment. Right now on 6 L by nasal cannula we're keeping him around 92-94%. Chest x-ray septic workup and 30 mL/kg bolus as his blood pressures around 92 systolic. After we get some fluids and we'll see if we need to do a central line too. Part of his somnolence and hypoxia may be due to a decreased respiratory drive secondary to overdose of opiates or something causing the opiates to back up in his system. If we can't maintain him easily we will consider Narcan. Progress Note #2: Time: 23:20 Progress Note The patient's complaining of some increased midline low back pain for last few days and this may triggered him to take extra opiates that he's not letting on and that could've led to his increased somnolence confusion and decreased respiratory status. The low back pain could be organic to his back or could be from a kidney stone. He says he's had about kidney stones in the past. He has blood in his urine. A CT without contrast looking for kidney stones and an ABG. ECG Initial ECG Impression Date: Jun 19, 2018 Initial ECG Impression Time: 22:01 Initial ECG Rate: 88 Initial ECG Rhythm: Normal Sinus Initial ECG Intervals: Normal Initial ECG Impression: Normal, Nonspecific Changes Comment No T-wave elevation or depression. Diagnostic Imaging Diagonstic Imaging: Xray Plain Films/CT/US/NM/MRI: chest Comments No acute cardio pulmonary processes noted. Reviewed: Reviewed by Me Diagonstic Imaging: Xray Plain Films/CT/US/NM/MRI: abdomen Comments Nonspecific bowel gas pattern. There is stool in the colon. Reviewed: Reviewed by Me Diagonstic Imaging: CT (without contrast kidney stone study) Plain Films/CT/US/NM/MRI: abdomen, pelvis Comments Bilateral nephrolithiasis without evidence for hydronephrosis or ureteral stone. Evaluation of the rectosigmoid colon is limited secondary to poor distention. Some mild wall thickening of the rectosigmoid cannot excluded. Fatty duration of the liver. Cholelithiasis without CT evidence for pericholecystic inflammatory changes. Diverticulosis without evidence for diverticulitis. Reviewed: Reviewed [place] Study, Reviewed by Me Departure Communication (Admissions) Time/Spoke to Admitting Phy: 00:58 Discussed case lab imaging findings with Dr. Foss she agrees with steroids, antibiotics and she'll see the patient the morning. This BiPAP and ICU. Impression Primary Impression: COPD exacerbation Additional Impressions: Opiate dependence, continuous Microscopic hematuria Acute respiratory disease Hypercapnemia Hypoxemia Disposition: ADMITTED INPATIENT Condition: Stable Admissions Decision to Admit Reason: Admit from ER (General) Decision to Admit/Date: Jun 20, 2018 Time/Decision to Admit Time: 00:52 Departure-Patient Inst. Referrals: GLENN SHAHID MD (PCP/Family) Primary Care Physician Copy Copies To 1: GLENN SHAHID MD, TITUS J Jun 19, 2018 21:57
[2018-06-19 21:58] LABS: BASOPHILS # (AUTO) 0.1 10^3/uL (0.0-0.1); BASOPHILS % (AUTO) 0 % (0-10); EOSINOPHILS # (AUTO) 0.3 10^3/uL (0.0-0.3); EOSINOPHILS % (AUTO) 2 % (0-10); HEMATOCRIT 41 % (40-54); HEMOGLOBIN 13.2 G/DL (13.3-17.7); LYMPHOCYTES # (AUTO) 2.1 X 10^3 (1.0-4.0); LYMPHOCYTES % (AUTO) 15 % (12-44); MEAN CORPUSCULAR HEMOGLOBIN 31 PG (25-34); MEAN CORPUSCULAR HGB CONC 32 G/DL (32-36); MEAN CORPUSCULAR VOLUME 96 FL (80-99); MEAN PLATELET VOLUME 10.6 FL (7.4-10.4); MONOCYTES # (AUTO) 1.3 X 10^3 (0.0-1.0); MONOCYTES % (AUTO) 9 % (0-12); NEUTROPHILS # (AUTO) 10.1 X 10^3 (1.8-7.8); NEUTROPHILS % (AUTO) 73 % (42-75); PLATELET COUNT 184 10^3/uL (130-400); RED BLOOD COUNT 4.28 10^6/uL (4.35-5.85); WHITE BLOOD COUNT 13.9 10^3/uL (4.3-11.0)
[2018-06-19] MEDS ORDERED: RT-ALBUTEROL/IPRATROPIUM 3 ML (DUONEB) VIAL INH ONE (22:00)
[2018-06-19] MEDS ORDERED: NS IV ONE (22:00)
[2018-06-19] MEDS ORDERED: PIPERACILLIN SODIUM/TAZOBACTAM 4.5 GM in NS (IVPB) 100 ML IV ONE (22:00)
[2018-06-19 22:13] LABS: PROTHROMBIN TIME PATIENT 13.6 SEC (12.2-14.7)
[2018-06-19 22:22] LABS: ALBUMIN 3.6 GM/DL (3.2-4.5); BILIRUBIN,TOTAL 0.5 MG/DL (0.1-1.0); CALCIUM 11.4 MG/DL (8.5-10.1); CREATININE SERUM 1.65 MG/DL (0.60-1.30); MAGNESIUM 1.8 MG/DL (1.8-2.4); TOTAL PROTEIN 6.4 GM/DL (6.4-8.2)
[2018-06-19 22:53] LABS: BILIRUBIN,URINE 2+ (NEGATIVE); CLARITY,URINE SLIGHTLY CLOUDY; COLOR,URINE AMBER; GLUCOSE, URINE (UA) NEGATIVE (NEGATIVE); KETONES,URINE 1+ (NEGATIVE); LEUKOCYTE ESTERASE ,URINE 2+ (NEGATIVE); NITRITE,URINE NEGATIVE (NEGATIVE); PH,URINE 5 (5-9); PROTEIN,URINE 3+ (NEGATIVE); UROBILINOGEN,URINE 4 MG/DL (NORMAL)
[2018-06-19 23:02] LABS: AMORPHOUS SEDIMENT,UR FEW AMOR URATES /LPF
[2018-06-19 23:04] LABS: AMPHETAMINE SCREEN, URINE NEGATIVE (NEGATIVE); BARBITURATE SCREEN URINE NEGATIVE (NEGATIVE); BENZODIAZEPINES SCREEN URINE POSITIVE (NEGATIVE); CANNABINOID SCREEN, URINE NEGATIVE (NEGATIVE); COCAINE SCREEN URINE NEGATIVE (NEGATIVE); METHADONE STAT NEGATIVE (NEGATIVE); METHAMPHETAMINE SCREEN URINE S NEGATIVE (NEGATIVE); OPIATE SCREEN URINE POSITIVE (NEGATIVE); OXYCODONE STAT POSITIVE (NEGATIVE); PROPOXYPHENE STAT NEGATIVE (NEGATIVE); TRICYCLIC ANTIDEPRESSANTS SCRE NEGATIVE (NEGATIVE)
[2018-06-20] VITALS (31 sets, daily range): BP systolic 106–188; BP diastolic 57–101
[2018-06-20 00:23] LABS: ABG OXYGEN SATURATION 93 % (94-100); ABG PO2 74 MMHG (79-93); ABG TCO2 29.5 MMOL/L (21.0-31.0)
[2018-06-20 00:28] LABS: ABG PCO2 73 MMHG (35-45); ALLENS TEST YES-POS; INSPIRED O2 6L; PATIENT TEMP 98.7; VENTILATOR NO
[2018-06-20] MEDS ORDERED: CEFEPIME INJECTION 2,000 MG in NS (IVPB) 50 ML IV ONE (01:00)
[2018-06-20] MEDS ORDERED: methylPREDNISolone 125 MG (Solu-MEDROL) VIAL IVP ONE (01:00)
--- OUTSIDE RECORDS SUMMARY | 2018-06-20 01:15 | XMS REPORT | Clinical Summary ---
Author Author [facility] Organization [facility] Address Unknown Phone Unavailable Care Team Providers Care Intensive Care Medicine Specialist Name Role Phone PCP Unavailable Allergies Not [...]
--- OUTSIDE RECORDS SUMMARY | 2018-06-20 01:15 | XMS REPORT | Clinical Summary ---
Author Author [facility] Organization [facility] Address Unknown Phone Unavailable Care Team Providers Care Rack Production Worker Name Role Phone Juanpablo Forman MD Unavailable Louise Peters MD Unavailable Codey Suárez MD Unavailable Frantz Sidhu MD Unavailable Jenny Miller MD Unavailable Marisabel Blas DO Unavailable Kleber Jay MD Unavailable Johnny Brar MD Unavailable Unavailable Ivan Gomez MD Unavailable Berta Davis RN Unavailable Glenny Ocampo DO Unavailable Saravanan Kc MD Unavailable Simon España MD [id number] Gustavo Sandoval DO [id number] Yaritza López RN Unavailable Unavailable Gavin Schneider MD Unavailable Berta Hurst APRN Unavailable Sonya Johnson MD Unavailable Kel Wright MD PCP Source Comments Some departments are not documenting in the electronic medical record. If you do not see the information that you expected, contact Release of Information in the Health Information Management department at [phone] for further assistance in locating additional records.[facility] Allergies Active Allergy Reactions Severity Noted Date [...]
[2018-06-20] MEDS ORDERED: ALPRAZolam 0.5 MG (XANAX) TAB PO PRN (02:00)
[2018-06-20] MEDS ORDERED: ONDANSETRON 4 MG/2 ML (SDV) Z0FRAN IV PRN (02:00)
[2018-06-20] MEDS ORDERED: PROMETHAZINE 25 MG (PHENERGAN) TAB PO PRN (02:00)
[2018-06-20] MEDS: AZITHROMYCIN INJECTION 500 MG in NS (IVPB) 250 ML IV SCH (02:17)
[2018-06-20] MEDS: NS W/KCL 20 MEQ/L 1,000 ML IV SCH ×5 (02:17→20:49)
[2018-06-20] MEDS: RT-ALBUTEROL/IPRATROPIUM 3 ML (DUONEB) VIAL INH SCH ×6 (02:35→22:14)
[2018-06-20] MEDS ORDERED: RT-ALBUTEROL/IPRATROPIUM 3 ML (DUONEB) VIAL INH PRN (04:00)
[2018-06-20 04:28] LABS: BASOPHILS % (AUTO) 0 % (0-10); EOSINOPHILS # (AUTO) 0.1 10^3/uL (0.0-0.3); EOSINOPHILS % (AUTO) 1 % (0-10); HEMATOCRIT 42 % (40-54); HEMOGLOBIN 13.4 G/DL (13.3-17.7); LYMPHOCYTES # (AUTO) 0.8 X 10^3 (1.0-4.0); LYMPHOCYTES % (AUTO) 7 % (12-44); MEAN CORPUSCULAR HEMOGLOBIN 32 PG (25-34); MEAN CORPUSCULAR HGB CONC 32 G/DL (32-36); MEAN CORPUSCULAR VOLUME 98 FL (80-99); MEAN PLATELET VOLUME 10.2 FL (7.4-10.4); MONOCYTES # (AUTO) 0.5 X 10^3 (0.0-1.0); MONOCYTES % (AUTO) 4 % (0-12); NEUTROPHILS % (AUTO) 88 % (42-75); PLATELET COUNT 134 10^3/uL (130-400); RED BLOOD COUNT 4.25 10^6/uL (4.35-5.85); RED CELL DISTRIBUTION WIDTH 15.3 % (10.0-14.5); WHITE BLOOD COUNT 12.5 10^3/uL (4.3-11.0)
[2018-06-20 04:42] LABS: CALCIUM 10.4 MG/DL (8.5-10.1); CREATININE SERUM 1.35 MG/DL (0.60-1.30); MAGNESIUM 1.9 MG/DL (1.8-2.4); PHOSPHORUS 2.4 MG/DL (2.3-4.7); POTASSIUM 4.7 MMOL/L (3.6-5.0)
[2018-06-20] MEDS: MAGNESIUM 1 GM/100 ML IVPB 100 ML IV SCH (04:45)
[2018-06-20] MEDS: POTASSIUM CL 10MEQ/50ML IVPB 50 ML IV SCH (04:45)
[2018-06-20] MEDS: KCL 20 MEQ TAB (K-DUR) PO SCH (04:45)
[2018-06-20] MEDS: inSUlin ASPART (NovoLOG) 1 UNIT/0.01 ML (CHARGE PER UNIT) SC SCH ×4 (05:29→20:36)
--- NOTE | 2018-06-20 06:16 | Diagnostic Imaging Report ---
PROCEDURE: CT urinary tract, rule out kidney stone. TECHNIQUE: Multiple contiguous axial images were obtained through the abdomen and pelvis without the use of intravenous contrast. Indication: Lethargy, abdominal pain. Comparison: 12/03/2015. Discussion: The lung bases are unremarkable containing mild subsegmental atelectasis. Normal heart size. No pleural or pericardial fluid. Cholelithiasis is present. Suspect fatty infiltration of the liver. Probable cyst near the right hepatic dome is stable. The pancreas, stomach, spleen, adrenal glands are unremarkable. Bilateral nonobstructing renal calculi are again noted measuring up to 3 mm. Suspect bilateral renal cysts are stable though incompletely evaluated due to lack of IV contrast. No hydronephrosis or ureteral stone. Urinary bladder is mostly decompressed. Prostate is normal in size. Mesenteric calcifications are stable, likely due to fat necrosis or blunt trauma. Degenerative changes are again noted within the lumbar spine. 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 Small periumbilical fat-containing hernia, stable. Aorta is normal in caliber. Diverticulosis with no secondary evidence for diverticulitis. No ascites or pathologically enlarged lymph nodes. Impression: 1. Stable chronic changes as discussed. No acute abnormality identified within either the abdomen or pelvis. 2. Agree with preliminary report. Dictated by: Dictated on workstation # [id number]
[2018-06-20 06:23] LABS: ABG BASE EXCESS -0.6 MMOL/L (-2.5-2.5); ABG OXYGEN SATURATION 92 % (94-100); ABG PCO2 68 MMHG (35-45); ABG PO2 63 MMHG (79-93); ABG TCO2 28.6 MMOL/L (21.0-31.0)
[2018-06-20 06:27] LABS: ABG PH 7.21 (7.37-7.43); ALLENS TEST YES-POS; INSPIRED O2 40%; PATIENT TEMP 97.9; VENTILATOR NO
--- NOTE | 2018-06-20 06:52 | Diagnostic Imaging Report ---
INDICATION: Abdominal pain with dyspnea and weakness. COMPARISON: 12/03/2015. DISCUSSION: Four views of the abdomen were obtained. Mesenteric calcifications are again noted, likely previous fat necrosis. Mild constipation. No obstruction, pneumatosis, pneumoperitoneum. The lung bases are unremarkable. No acute osseous abnormality. IMPRESSION: 1. Mild constipation. Dictated by: Dictated on workstation # [id number]
--- NOTE | 2018-06-20 06:52 | Diagnostic Imaging Report ---
Indication: Dyspnea. Comparison: 04/20/2018. Discussion: Single supine frontal view of the chest was obtained. Mild cardiomegaly is stable. No failure. No focal consolidation, pleural fluid, or pneumothorax. No osseous abnormality. Impression: 1. Mild cardiomegaly without failure. Dictated by: Dictated on workstation # [id number]
--- NOTE | 2018-06-20 08:10 | Diagnostic Imaging Report ---
Indication: Cardiomegaly Portable chest at 2:43 AM There is cardiomegaly. Pulmonary vascularity is normal. The lungs are clear. There are no effusions or pneumothoraces. Impression: Cardiomegaly without evidence of pulmonary venous hypertension. No change from previous day. Dictated by: Dictated on workstation # [id number]
[2018-06-20] MEDS: NICOTINE 7 MG (NICODERM) PATCH TD SCH (08:18)
[2018-06-20] MEDS: oxyCODONE ER 40 MG (oxyCONTIN CR) TAB PO SCH ×2 (08:18→20:48)
[2018-06-20] MEDS ORDERED: predniSONE 20 MG TAB PO SCH (10:00)
[2018-06-20] MEDS ORDERED: predniSONE 10 MG TAB PO SCH (10:00)
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
[2018-06-20 12:39] LABS: ABG BASE EXCESS -1.4 MMOL/L (-2.5-2.5); ABG OXYGEN SATURATION 94 % (94-100); ABG PCO2 52 MMHG (35-45); ABG PO2 63 MMHG (79-93)
[2018-06-20 12:42] LABS: ABG PH 7.29 (7.37-7.43)
[2018-06-20 12:43] LABS: ALLENS TEST YES-POS; INSPIRED O2 35% BIPAP; PATIENT TEMP 97.6; VENTILATOR NO
[2018-06-20] MEDS: ENOXAPARIN 40 MG/0.4 ML (LOVENOX) SYR SC SCH ×2 (13:15→20:49)
[2018-06-20] MEDS: GABAPENTIN 400 MG (NEURONTIN) CAP PO SCH ×2 (13:16→20:48)
[2018-06-20] MEDS: CEFEPIME INJECTION 2,000 MG in NS (IVPB) 50 ML IV SCH (13:16)
[2018-06-20] MEDS ORDERED: methylPREDNISolone 40 MG/ML (Solu-MEDROL) VIAL IV SCH (20:00)
[2018-06-20] MEDS: ALPRAZolam 1 MG (XANAX) TAB PO PRN (20:48)
[2018-06-20] MEDS: inSUlin DETERMIR 1 UNIT/0.01 ML (LEVEMIR) CHARGE PER UNIT SQ SCH (20:49)
[2018-06-20] MEDS ORDERED: INSULIN DETEMIR 15 UNIT SC SCH (21:00)
[2018-06-20] MEDS ORDERED: NS IV 1000 ML 1,000 ML ONE (21:24)
[2018-06-20] MEDS: NS IV 1000 ML 1,000 ML IV SCH (21:46)
[2018-06-21] VITALS (15 sets, daily range): BP systolic 131–181; BP diastolic 63–103
[2018-06-21] MEDS: RT-ALBUTEROL/IPRATROPIUM 3 ML (DUONEB) VIAL INH SCH ×6 (01:29→23:08)
[2018-06-21] MEDS: NS IV 1000 ML 1,000 ML IV SCH ×2 (02:02→07:41)
[2018-06-21] MEDS: CEFEPIME INJECTION 2,000 MG in NS (IVPB) 50 ML IV SCH ×2 (02:03→12:14)
[2018-06-21] MEDS: AZITHROMYCIN INJECTION 500 MG in NS (IVPB) 250 ML IV SCH (03:35)
[2018-06-21] MEDS ORDERED: LIDOCAINE UROJET 2% GEL 10 ML PKG ONE (03:58)
[2018-06-21 04:05] LABS: BASOPHILS % (AUTO) 0 % (0-10); EOSINOPHILS % (AUTO) 0 % (0-10); HEMATOCRIT 38 % (40-54); HEMOGLOBIN 12.1 G/DL (13.3-17.7); LYMPHOCYTES # (AUTO) 0.4 X 10^3 (1.0-4.0); LYMPHOCYTES % (AUTO) 4 % (12-44); MEAN CORPUSCULAR HEMOGLOBIN 32 PG (25-34); MEAN CORPUSCULAR HGB CONC 32 G/DL (32-36); MEAN CORPUSCULAR VOLUME 98 FL (80-99); MEAN PLATELET VOLUME 10.7 FL (7.4-10.4); MONOCYTES # (AUTO) 0.3 X 10^3 (0.0-1.0); MONOCYTES % (AUTO) 3 % (0-12); NEUTROPHILS # (AUTO) 9.4 X 10^3 (1.8-7.8); NEUTROPHILS % (AUTO) 93 % (42-75); PLATELET COUNT 117 10^3/uL (130-400); RED BLOOD COUNT 3.84 10^6/uL (4.35-5.85); RED CELL DISTRIBUTION WIDTH 14.6 % (10.0-14.5); WHITE BLOOD COUNT 10.1 10^3/uL (4.3-11.0)
[2018-06-21 04:27] LABS: ALANINE AMINOTRANSFERASE 26 U/L (0-55); ALBUMIN 3.2 GM/DL (3.2-4.5); ALKALINE PHOSPHATASE 52 U/L (40-136); BILIRUBIN,TOTAL 0.5 MG/DL (0.1-1.0); BUN/CREATININE RATIO 13; CALCIUM 9.8 MG/DL (8.5-10.1); CARBON DIOXIDE 16 MMOL/L (21-32); CHLORIDE 113 MMOL/L (98-107); CREATININE SERUM 0.89 MG/DL (0.60-1.30); GFR ESTIMATED > 60; GLUCOSE 247 MG/DL (70-105); MAGNESIUM 1.6 MG/DL (1.8-2.4); PHOSPHORUS 1.1 MG/DL (2.3-4.7); SODIUM 138 MMOL/L (135-145); TOTAL PROTEIN 5.6 GM/DL (6.4-8.2)
[2018-06-21] MEDS: POTASSIUM CL 10MEQ/50ML IVPB 50 ML IV SCH (04:39)
[2018-06-21] MEDS: MAGNESIUM 1 GM/100 ML IVPB 100 ML IV SCH ×3 (04:40→07:30)
[2018-06-21] MEDS: KCL 20 MEQ TAB (K-DUR) PO SCH (04:40)
--- NOTE | 2018-06-21 06:15 | Pulmonary Consultation ---
History of Present Illness History of Present Illness Date of Consultation 06/21/18 06:10 Time Seen by Provider: 06:10 Date of Admission History of Present Illness 52yo presneted to ED secondary to worsening confusion and agitation. Pt has had similar prior episodes davina when his C02 gets high. Pt has been taking increased morphine secondary to back pain. PT was admitted to ICU and was placed on BiPAP secondary to respiratory distress and respiratory acidosis. Allergies and Home Medications Allergies Coded Allergies: hydrocodone (Verified Allergy, Unknown, TAKES OXYCODONE AT HOME, 05/05/16) STATES IS NOT ALLERGIC TO THIS MED latex (Verified Allergy, Unknown, 05/05/16) Home Medications Albuterol Sulfate 8.5 Gm Hfa.aer.ad, 2 PUFF IH Q4H PRN for SHORTNESS OF BREATH, (Reported) Albuterol Sulfate 2.5 Mg/3 Ml Vial.neb, 2.5 MG NEB Q4H PRN for WHEEZING, ( Reported) Alprazolam 1 Mg Tablet, 1 MG PO TID PRN for ANXIETY, (Reported) Furosemide 20 Mg Tablet, 20 MG PO DAILY PRN for SWELLING, (Reported) Gabapentin 800 Mg Tablet, 800 MG PO TID, (Reported) Insulin Detemir 100 Unit/1 Ml Insuln.pen, 15 UNITS SC HS, (Reported) Insulin Lispro 100 Unit/1 Ml Insuln.pen, SC AC, (Reported) Metoprolol Succinate 50 Mg Tab.er.24h, 50 MG PO DAILY, (Reported) Oxycodone HCl 30 Mg Tablet, 30 MG PO Q6H PRN for PAIN-SEVERE, (Reported) Oxycodone HCl 80 Mg Tab.er.12h, 80 MG PO TID, (Reported) Prednisone 10 Mg Tab, 10 MG PO Q48H, (Reported) Prednisone 20 Mg Tab, 20 MG PO Q48H, (Reported) Promethazine HCl 25 Mg Tablet, 25 MG PO BID PRN for NAUSEA/VOMITING-2ND LINE, ( Reported) Past Rmimjka-Namkcp-Ceiwws Hx Past Med/Social Hx: Reviewed Nursing Past Med/Soc Hx Patient Social History Alcohol Use: Denies Use Recreational Drug Use: Yes (PAST HX-7 years ago) Drug of Choice: HX Smoking Status: Current Everyday Smoker Type Used: Cigarettes Former Smoker, Quit: Mar 06, 2016 2nd Hand Smoke Exposure: No Recent Foreign Travel: No Contact w/Someone Who Travel: No Recent Infectious Disease Expo: No Recent Hopitalizations: No Immunizations Up To Date Tetanus Booster (TDap): Unknown PED Vaccines UTD: Yes Date of Pneumonia Vaccine: Nov 12, 2012 Seasonal Allergies Seasonal Allergies: No Past Medical History Surgeries: Yes Abdominal, Cardiac, Orthopedic Respiratory: Yes Pneumonia, COPD Currently Using CPAP: Yes Currently Using BIPAP: Yes Cardiac: Yes Chronic Edema/Swelling, Hypertension, Peripheral Vascular Neurological: Yes (MONO NEURITIS; NEUROPATHY--WHEELCHAIR BOUND) Headaches /Migraines, Neuropathy Reproductive Disorders: No Sexually Transmitted Disease: No HIV/AIDS: No Genitourinary: Yes Bladder Infection, Kidney Stones, Renal Failure, UTI-Chronic Gastrointestinal: Yes (HEPATITIS C--NO TREATMENT. BILARY STENT) Gastroesophageal Reflux, Liver Disease/Jaundice, Hepatitis, Gall Bladder Disease Musculoskeletal: Yes Degenerate Disk Disease, Arthritis, Rheumatoid Arthritis, Chronic Back Pain Endocrine: Yes (MORBID OBESITY; ELEVATED URIC ACID) Diabetes, Insulin dep HEENT: No Loss of Vision: Denies Hearing Impairment: Denies Cancer: No Psychosocial: Yes Sleep Difficulties, Anxiety, Depression Integumentary: Yes Blood Disorders: No Family Medical History Alcoholism 03 FATHER Diabetes mellitus 03 FATHER Family history: Allergy 03 MOTHER Family history: Asthma 03 MOTHER Family history: Hypertension 03 FATHER 03 MOTHER No Pertinent Family Hx 09/2015--SEPTIC SHOCK WITH ACUTE RESPIRATORY FAILURE AND RENAL FAILURE--ON DIALYSIS AND VENTILATOR--HAD PNEUMONIA AND UTI Sepsis Event Evaluation Height, Weight, BMI Height: 5'9.00" Weight: 317lbs. 8.0oz. 144.359896mv; 46.9 BMI Method:Stated Exam Exam Vital Signs Date Time Temp Pulse Resp B/P (MAP) Pulse Ox O2 Delivery O2 Flow Rate FiO2 06/21/18 06:00 89 21 181/103 (129) 99 Nasal Cannula 3.00 06/21/18 05:00 91 19 167/96 (119) 98 Nasal Cannula 3.00 06/21/18 04:00 96 Nasal Cannula 4.00 06/21/18 04:00 87 16 149/91 (110) Nasal Cannula 3.00 06/21/18 03:00 85 20 167/89 (115) 98 Nasal Cannula 3.00 06/21/18 02:00 98 17 159/82 (107) 98 Nasal Cannula 3.00 06/21/18 01:29 80 17 99 35.00 06/21/18 01:02 84 06/21/18 01:00 86 16 155/84 (107) Nasal Cannula 3.00 06/21/18 00:00 94 NIV Bilevel 40 06/21/18 00:00 90 17 131/63 (85) Nasal Cannula 3.00 06/20/18 23:00 86 21 156/88 (110) Nasal Cannula 3.00 06/20/18 22:14 83 19 99 40.00 06/20/18 22:00 86 17 164/93 (116) 100 Nasal Cannula 3.00 06/20/18 21:00 87 13 188/95 (126) 99 Nasal Cannula 3.00 06/20/18 20:00 95 Nasal Cannula 3.00 06/20/18 20:00 98.5 85 21 179/93 (121) 95 Nasal Cannula 3.00 06/20/18 19:01 87 06/20/18 19:00 86 25 174/94 (120) 98 Nasal Cannula 06/20/18 18:26 95 Nasal Cannula 5.00 06/20/18 18:00 81 18 152/83 (106) 96 Nasal Cannula 3.00 06/20/18 17:00 85 19 143/76 (98) 100 Nasal Cannula 3.00 06/20/18 16:00 87 10 172/91 (118) 97 Nasal Cannula 3.00 06/20/18 16:00 95 Nasal Cannula 3.00 06/20/18 16:00 97.8 06/20/18 15:00 86 10 162/98 (119) 94 Nasal Cannula 3.00 06/20/18 14:05 92 Nasal Cannula 5.00 06/20/18 14:00 85 17 178/84 (115) 92 Nasal Cannula 3.00 06/20/18 13:00 90 06/20/18 13:00 79 28 121/101 (108) 96 Nasal Cannula 3.00 06/20/18 12:00 93 30 137/77 (97) 96 NIV Bilevel 35.00 06/20/18 12:00 94 NIV Bilevel 40.00 06/20/18 12:00 97.6 06/20/18 11:00 75 18 114/61 (78) 95 NIV Bilevel 35.00 06/20/18 10:10 NIV Bilevel 35.00 11/3/18 10:07 97 16 90 35.00 06/20/18 10:00 88 15 129/68 (88) 95 NIV Bilevel 40.00 06/20/18 09:00 89 16 124/70 (88) 100 NIV Bilevel 40.00 06/20/18 08:30 93 17 90 40.00 06/20/18 08:00 94 NIV Bilevel 40.00 06/20/18 08:00 85 19 124/65 (84) 94 40.00 06/20/18 07:00 97.8 85 16 114/65 (81) 95 40.00 06/20/18 07:00 84 06/20/18 06:17 80 16 92 40.00 I & O 06/21/18 07:00 Intake Total 3950 ml Output Total 3250 ml Balance 700 ml Height & Weight Height: 5'9.00" Weight: 317lbs. 8.0oz. 144.520628qq; 46.9 BMI Method:Stated General Appearance: Mild Distress, Obese HEENT: PERRL/EOMI, Normal ENT Inspection; No Moist Mucous Membranes Neck: Limited Range of Motion, Other (Short and full) Respiratory: Lungs Clear, Accessory Muscle Use, Decreased Breath Sounds Cardiovascular: Regular Rate, Rhythm, No Gallop, No Murmur Capillary Refill: Less Than 3 Seconds Extremity: Pedal Edema Neurologic/Psychiatric: Alert, No Motor/Sensory Deficits, Depressed Affect Skin: Warm/Dry, Pallor Results Lab Laboratory Tests 06/19/18 21:40 06/20/18 03:35 06/21/18 03:55 Assessment/Plan Assessment/Plan Acute on chronic respiratory failure -Pt states he has a vent to mask at home -He will have his mom bring it in -Repeat ABG Sepsis -Continue abx -Decrease IVF to 75 Morbid obesity with OHS COPD Avascular necrosis bilateral femoral heads ARLEN MEJIA DO Jun 21, 2018 06:15
[2018-06-21] MEDS: inSUlin ASPART (NovoLOG) 1 UNIT/0.01 ML (CHARGE PER UNIT) SC SCH ×4 (06:24→21:05)
--- NOTE | 2018-06-21 06:58 | Diagnostic Imaging Report ---
Indication: Shortness of breath Portable chest at 12:42 AM Heart size and pulmonary vascularity are normal. Lungs are clear. There are no effusions or pneumothoraces. Impression: Negative chest. Dictated by: Dictated on workstation # [id number]
[2018-06-21 07:00] LABS: ABG BASE EXCESS -1.6 MMOL/L (-2.5-2.5); ABG OXYGEN SATURATION 97 % (94-100); ABG PCO2 41 MMHG (35-45); ABG PH 7.36 (7.37-7.43); ABG PO2 77 MMHG (79-93); ABG TCO2 24.4 MMOL/L (21.0-31.0)
[2018-06-21 07:02] LABS: ALLENS TEST YES-POS; INSPIRED O2 4L; PATIENT TEMP 97.9; VENTILATOR NO
[2018-06-21] MEDS: GABAPENTIN 400 MG (NEURONTIN) CAP PO SCH ×3 (07:40→21:04)
[2018-06-21] MEDS: meTOproloL SUCCINATE 50 MG (TOPROL XL) TAB PO SCH (07:41)
[2018-06-21] MEDS: NICOTINE 7 MG (NICODERM) PATCH TD SCH (07:41)
[2018-06-21] MEDS: ENOXAPARIN 40 MG/0.4 ML (LOVENOX) SYR SC SCH ×2 (07:41→21:04)
[2018-06-21] MEDS: oxyCODONE ER 40 MG (oxyCONTIN CR) TAB PO SCH (07:41)
--- NOTE | 2018-06-21 09:27 | Progress Note-Hospitalist ---
Subjective HPI/CC On Admission Date Seen by Provider: Jun 21, 2018 Time Seen by Provider: 08:20 This is a 52-year-old white male with multiple medical problems. He was brought to the emergency room by EMS after they had been called by his mother. His mother notes that he has been having increased confusion and agitation and talking out of his head. She says that this occurs when his CO2 level gets too high. Evidently he had been having to take some increased morphine for back pain. At the time of my interview this morning he is awake and oriented and complains of having a dry mouth and perhaps being dehydrated. He is on BiPAP and his oxygen saturations are in the 100s. He remains with a low pH on his last blood gas this morning with hypercapnic respiratory failure. He has been nonambulatory for 8 years. He lives with his mother who is the primary billing assistant. Subjective/Events-last exam Patient is awake and alert on 3 L nasal cannula. He's ordered breakfast this morning is hungry. Blood gas looks excellent this morning. Blood sugars are running a little high and platelets of dropped a little bit. He would like to resume his morphine close to where it was and denies having had taking any extra. He does have Narcan at home to use in case he is oversedated and we discussed the risks of the decreased respiratory drive with excessive narcotic use. He did express some interest in tapering off the doses. He has severe chronic pain from his mononeuritis multiplex. Otherwise he is anxious to go home and I told muscular move him down to the medical floor.. Review of Systems Musculoskeletal: arm pain, back pain, hand pain, leg pain, foot pain Neurological: Weakness, Numbness Focused Exam Lactate Level 06/19/18 21:40: Lactic Acid Level 2.48*H 06/20/18 00:50: Lactic Acid Level 1.13 Objective Exam Vital Signs Vital Signs Date Time Temp Pulse Resp B/P (MAP) Pulse Ox O2 Delivery O2 Flow Rate FiO2 06/21/18 10:53 95 Nasal Cannula 2.50 06/21/18 10:52 98.0 75 18 133/79 (97) 06/21/18 00:00 40 Capillary Refill : Less Than 3 Seconds General Appearance: Chronically ill, Obese HEENT: TMs Normal, Normal ENT Inspection, Pharynx Normal Neck: Non Tender, Limited Range of Motion Respiratory: Chest Non Tender, Lungs Clear, Normal Breath Sounds, No Accessory Muscle Use, No Respiratory Distress Cardiovascular: Regular Rate, Rhythm, No Gallop, No JVD, No Murmur Gastrointestinal: Normal Bowel Sounds, Non Tender, Soft Rectal: Deferred Extremity: Pedal Edema, Swelling, Other (Limited range of motion of both upper and lower extremities.) Neurologic/Psychiatric: Oriented x3, Depressed Affect Skin: Normal Color, Warm/Dry Results/Procedures Lab Laboratory Tests 06/21/18 03:55 Patient resulted labs reviewed. Imaging: Reviewed Imaging Report Assessment/Plan Assessment and Plan Assess & Plan/Chief Complaint Hypercapnic respiratory failure-acute resolving-on Zithromax and Zosyn Chronic respiratory failure Obstructive sleep apnea Morbid obesity Type II diabetes out of control secondary to IV steroids will change back to his by mouth steroids Hypertension on Toprol consider changing to a calcium channel edgar Decreased platelet count on Lovenox will recheck in the morning. Mononeuritis multiplex with [id number] Constipation Chronic pain syndrome with narcotics dependence for management-patient has Narcan at home, we discussed not taking medications if he is somnolent. Nephrolithiasis Hypercalcemia with low phosphorus consider hyperparathyroidism Asymptomatic cholelithiasis Metabolic acidosis Possible discharge in the morning. Critical Care Critical Care: Critically Ill Patient Clinical Quality Measures DVT/VTE Risk/Contraindication: Risk Factor Score Per Nursin RFS Level Per Nursing on Admit: 4+=Very High RANDY FRANCO MD Jun 21, 2018 9:27 am
[2018-06-21] MEDS ORDERED: RT-ALBUTEROL SULF 2.5 MG/3 ML PRE-MIX VIAL IH PRN (09:30)
[2018-06-21] MEDS: oxyCODONE ER 20 MG (OxyCONTIN CR) TAB PO SCH ×2 (14:19→21:05)
[2018-06-21] MEDS: inSUlin DETERMIR 1 UNIT/0.01 ML (LEVEMIR) CHARGE PER UNIT SQ SCH (21:05)
[2018-06-22 00:17] VITALS: BP 168/84
[2018-06-22] MEDS: CEFEPIME INJECTION 2,000 MG in NS (IVPB) 50 ML IV SCH (01:14)
[2018-06-22] MEDS ORDERED: AZITHROMYCIN 500 MG (ZITHROMAX) VIAL ONE (02:24)
[2018-06-22] MEDS ORDERED: NS (IVPB) 250 ML ONE (02:25)
[2018-06-22] MEDS: AZITHROMYCIN INJECTION 500 MG in NS (IVPB) 250 ML IV SCH (02:33)
[2018-06-22] MEDS: RT-ALBUTEROL/IPRATROPIUM 3 ML (DUONEB) VIAL INH SCH ×3 (03:04→11:06)
[2018-06-22 04:35] VITALS: BP 177/83
[2018-06-22] MEDS: oxyCODONE ER 20 MG (OxyCONTIN CR) TAB PO SCH (05:04)
[2018-06-22] MEDS: inSUlin ASPART (NovoLOG) 1 UNIT/0.01 ML (CHARGE PER UNIT) SC SCH ×2 (05:44→11:27)
[2018-06-22 06:31] LABS: BASOPHILS % (AUTO) 0 % (0-10); EOSINOPHILS # (AUTO) 0.1 10^3/uL (0.0-0.3); EOSINOPHILS % (AUTO) 1 % (0-10); HEMATOCRIT 37 % (40-54); HEMOGLOBIN 12.1 G/DL (13.3-17.7); LYMPHOCYTES # (AUTO) 1.2 X 10^3 (1.0-4.0); LYMPHOCYTES % (AUTO) 15 % (12-44); MEAN CORPUSCULAR HEMOGLOBIN 31 PG (25-34); MEAN CORPUSCULAR HGB CONC 32 G/DL (32-36); MEAN CORPUSCULAR VOLUME 97 FL (80-99); MEAN PLATELET VOLUME 10.4 FL (7.4-10.4); MONOCYTES # (AUTO) 0.6 X 10^3 (0.0-1.0); MONOCYTES % (AUTO) 8 % (0-12); NEUTROPHILS # (AUTO) 6.2 X 10^3 (1.8-7.8); NEUTROPHILS % (AUTO) 76 % (42-75); PLATELET COUNT 127 10^3/uL (130-400); RED BLOOD COUNT 3.85 10^6/uL (4.35-5.85); RED CELL DISTRIBUTION WIDTH 15.3 % (10.0-14.5); WHITE BLOOD COUNT 8.2 10^3/uL (4.3-11.0)
--- NOTE | 2018-06-22 07:15 | Pulmonary Progress Note ---
Subjective Time Seen by a Provider: 07:16 Subjective/Events-last exam No complications noted. Sepsis Event Evaluation Height, Weight, BMI Height: 5'9.00" Weight: 327lbs. 8.0oz. 148.456692fm; 46.9 BMI Method:Stated Focused Exam Lactate Level 06/19/18 21:40: Lactic Acid Level 2.48*H 06/20/18 00:50: Lactic Acid Level 1.13 Exam Exam Vital Signs Date Time Temp Pulse Resp B/P (MAP) Pulse Ox O2 Delivery O2 Flow Rate FiO2 06/22/18 06:22 94 Nasal Cannula 2.50 06/22/18 04:35 97.5 79 19 177/83 (114) 96 Nasal Cannula 2.50 06/22/18 00:17 97.8 80 18 168/84 (112) 95 Nasal Cannula 2.50 06/21/18 23:08 95 Nasal Cannula 2.50 06/21/18 21:00 Nasal Cannula 2.50 06/21/18 20:19 97.4 86 22 172/85 (114) 96 Nasal Cannula 2.50 06/21/18 18:49 91 Room Air 06/21/18 16:15 98.4 87 18 169/84 (112) 97 Nasal Cannula 2.50 06/21/18 14:59 95 Nasal Cannula 2.50 06/21/18 10:53 95 Nasal Cannula 2.50 06/21/18 10:52 98.0 75 18 133/79 (97) 96 Nasal Cannula 2.50 06/21/18 10:00 92 21 170/87 (114) 97 Nasal Cannula 3.00 06/21/18 09:00 87 12 156/82 (106) 97 Nasal Cannula 3.00 06/21/18 08:00 93 13 158/90 (112) 97 Nasal Cannula 3.00 06/21/18 08:00 96 Nasal Cannula 4.00 I & O 06/22/18 07:00 Intake Total 1812 ml Output Total 1200 ml Balance 612 ml Height & Weight Height: 5'9.00" Weight: 327lbs. 8.0oz. 148.847473uk; 46.9 BMI Method:Stated General Appearance: No Apparent Distress, Chronically ill, Obese HEENT: TMs Normal, Normal ENT Inspection, Pharynx Normal Neck: Non Tender, Limited Range of Motion Respiratory: Chest Non Tender, Lungs Clear, Normal Breath Sounds, No Accessory Muscle Use, No Respiratory Distress Cardiovascular: Regular Rate, Rhythm, No Gallop, No JVD, No Murmur Capillary Refill: Less Than 3 Seconds Extremity: Pedal Edema, Swelling, Other (Limited range of motion of both upper and lower extremities.) Neurologic/Psychiatric: Oriented x3, Depressed Affect Skin: Normal Color, Warm/Dry Results Lab Laboratory Tests 06/21/18 03:55 06/22/18 05:39 Assessment/Plan Assessment/Plan Acute on chronic respiratory failure - improving -Pt states he has a vent to mask at home -He will have his mom bring it in Sepsis - much improved -Change Abx to PO omnicef Morbid obesity with OHS COPD -SVNS -Prednisone taper Avascular necrosis bilateral femoral heads ARLEN MEJIA DO Jun 22, 2018 07:15
[2018-06-22 07:21] LABS: BUN/CREATININE RATIO 19; CALCIUM 9.9 MG/DL (8.5-10.1); CARBON DIOXIDE 17 MMOL/L (21-32); CHLORIDE 115 MMOL/L (98-107); CREATININE SERUM 0.81 MG/DL (0.60-1.30); GFR ESTIMATED > 60; GLUCOSE 132 MG/DL (70-105); POTASSIUM 4.4 MMOL/L (3.6-5.0); SODIUM 142 MMOL/L (135-145)
[2018-06-22 07:23] VITALS: BP 177/86
[2018-06-22] MEDS: GABAPENTIN 400 MG (NEURONTIN) CAP PO SCH (08:08)
[2018-06-22] MEDS: NICOTINE 7 MG (NICODERM) PATCH TD SCH (08:08)
[2018-06-22] MEDS: ALPRAZolam 1 MG (XANAX) TAB PO PRN (08:08)
[2018-06-22] MEDS: ENOXAPARIN 40 MG/0.4 ML (LOVENOX) SYR SC SCH (08:08)
[2018-06-22] MEDS: meTOproloL SUCCINATE 50 MG (TOPROL XL) TAB PO SCH (08:08)
[2018-06-22] MEDS ORDERED: CEFDINIR 300 MG (OMNICEF) CAP PO SCH (09:00)
[2018-06-22 11:03] VITALS: BP 177/93
[2018-06-22] MEDS ORDERED: CEFD300C3 PO (11:14)
--- NOTE | 2018-06-22 11:21 | Discharge Inst-Simple/Standard ---
Discharge Inst-Standard Discharge Medications New, Converted or Re-Newed RX: Transmitted to Pharmacy Patient Instructions/Follow Up Plan of Care/Instructions/FU: Please continue to take your medications as written. Please follow up with you primary care physician and with Dr Hall as scheduled. Activity as Tolerated: Yes Discharge Diet: ADA Diet Return to The Hospital For: Shortness of breath, cough, fevers, confusion, if you feel you are getting worse. Planned Outpatient Orders/Ref. Pneu Vac Indicated: Yes SUSAN SOSA MD Jun 22, 2018 11:20 am
--- NOTE | 2018-06-22 11:23 | Discharge Summary-Hospitalist ---
Diagnosis/Chief Complaint Date of Admission Jun 20, 2018 at 1:00 am Date of Discharge Discharge Date: Jun 22, 2018 Admission Diagnosis Acute hypercapnic respiratory failure Sepsis-on cefepime and Zithromax for possible pulmonary etiology lactic acid normal today Chronic respiratory failure Morbid obesity COPD Mononeuritis multiplex Rheumatoid arthritis Hypercalcemia Nephrolithiasis- Cholelithiasis asymptomatic Avascular necrosis bilateral femoral heads Nonambulatory Tobaccoism Chronic pain Type II diabetes on insulin Discharge Summary Discharge Physical Exam Allergies: Coded Allergies: hydrocodone (Verified Allergy, Unknown, TAKES OXYCODONE AT HOME, 05/05/16) STATES IS NOT ALLERGIC TO THIS MED latex (Verified Allergy, Unknown, 05/05/16) Vitals & I&Os Vital Signs Date Time Temp Pulse Resp B/P (MAP) Pulse Ox O2 Delivery O2 Flow Rate FiO2 06/22/18 13:05 06/22/18 11:06 92 Nasal Cannula 2.00 06/22/18 11:03 97.5 95 22 General Appearance: No Apparent Distress, WD/WN Respiratory: Lungs Clear, No Respiratory Distress Cardiovascular: Regular Rate, Rhythm, No Murmur Neurologic/Psychiatric: Alert, Oriented x3 Hospital Course Pt was admitted to the ICU in acute respiratory failure and placed on BiPAP. Etiology was likely multifactorial due to pneumonia and sedation due to overuse of narcotics. He responded quickly and was titrated off BiPAP. He was discharged home in stable condition and precautions with narcotics were discussed with patient. He is to complete his antibiotic course and to follow up with his PCP in 1 week. Labs (last 24 hrs) Microbiology 06/19/18 Blood Culture - Preliminary, Resulted No growth 06/20/18 MRSA Screen - Final, Complete MRSA not isolated 06/19/18 Urine Culture - Final, Complete NO GROWTH Patient resulted labs reviewed. Pending Labs Imaging: Reviewed Imaging Report Discussion & Recommendations Discharge Planning: >30 minutes discharge planning Discharge Home Medications: Active Scripts Active Cefdinir 300 Mg Capsule 300 Mg PO BID Reported Janumet 50-1,000 mg Tablet (Sitagliptin Phos/Metformin HCl) 1 Each Tablet Albuterol Sulfate 2.5 Mg/3 Ml Vial.neb 2.5 Mg NEB Q4H PRN Furosemide 20 Mg Tablet 20 Mg PO DAILY PRN Prednisone 20 Mg Tab 20 Mg PO Q48H Humalog Kwikpen (Insulin Lispro) 100 Unit/1 Ml Insuln.pen SC AC Levemir Flextouch (Insulin Detemir) 100 Unit/1 Ml Insuln.pen 15 Units SC HS Gabapentin 800 Mg Tablet 800 Mg PO TID Metoprolol Succinate 50 Mg Tab.er.24h 50 Mg PO DAILY Prednisone 10 Mg Tab 10 Mg PO Q48H Promethazine Tablet (Promethazine HCl) 25 Mg Tablet 25 Mg PO BID PRN Proair Hfa (Albuterol Sulfate) 8.5 Gm Hfa.aer.ad 2 Puff IH Q4H PRN Alprazolam 1 Mg Tablet 1 Mg PO TID PRN Oxycontin (Oxycodone HCl) 80 Mg Tab.er.12h 80 Mg PO TID Oxycodone HCl 30 Mg Tablet 30 Mg PO Q6H PRN Instructions to patient/family Please see electronic discharge instructions given to patient. Clinical Quality Measures DVT/VTE Risk/Contraindication: Risk Factor Score Per Nursin RFS Level Per Nursing on Admit: 4+=Very High SUSAN SOSA MD Jun 22, 2018 11:23
== END 2018-06-22 13:05 | disposition home or self-care (01) | DRG 871 ==
LOC: EDUNIT# 21:31 → ER 21:33 → ICU 06-20 01:00 → 4TH 06-21 10:26
PROVIDERS: ADMIT Internal Medicine; ATTEND Internal Medicine
DX: A41.9 Sepsis, unspecified organism (principal); J96.02 Acute respiratory failure with hypercapnia; J96.10 Chronic respiratory failure, unspecified whether with hypoxia or hypercapnia; M87.9 Osteonecrosis, unspecified; Z68.42 Body mass index [BMI] 45.0-49.9, adult; F11.20 Opioid dependence, uncomplicated; E66.2 Morbid (severe) obesity with alveolar hypoventilation; J44.9 Chronic obstructive pulmonary disease, unspecified; E11.41 Type 2 diabetes mellitus with diabetic mononeuropathy; G58.7 Mononeuritis multiplex; M06.9 Rheumatoid arthritis, unspecified; E83.52 Hypercalcemia; N20.0 Calculus of kidney; K80.20 Calculus of gallbladder without cholecystitis without obstruction; F17.210 Nicotine dependence, cigarettes, uncomplicated; E11.65 Type 2 diabetes mellitus with hyperglycemia; I10 Essential (primary) hypertension; E11.51 Type 2 diabetes mellitus with diabetic peripheral angiopathy without gangrene; K21.9 Gastro-esophageal reflux disease without esophagitis; M19.91 Primary osteoarthritis, unspecified site; F41.9 Anxiety disorder, unspecified; F32.9 Major depressive disorder, single episode, unspecified; G43.909 Migraine, unspecified, not intractable, without status migrainosus; Z79.4 Long term (current) use of insulin; Z99.3 Dependence on wheelchair; Z86.19 Personal history of other infectious and parasitic diseases
CPT/HCPCS: 36415; 36600; 71045; 74018; 74176; 80048; 80053; 80306; 81000; 82805; 82962; 83605; 83735; 83880; 83970; 84100; 85025; 85610; 85730; 87040; 87081; 87088; 93005; 93041; 94640; 94660; 94760; 96361; 96365; 96375; 99291

== ENCOUNTER → 2018-09-29 | Outpatient (CLI) | payer MEDICARE, MEDICAID ==
[~2018-09-29] MED LIST changes: +GABA800T10 PO; +SITA1TAB6
--- NOTE | 2018-09-29 16:26 | Diagnostic Imaging Report ---
PROCEDURE: MRI lumbar spine. TECHNIQUE: Multiplanar, multisequence MRI of the lumbar spine was performed without contrast. INDICATION: Low back pain with bilateral leg pain and numbness. Patient has had prior lumbar spine surgery in 1997. COMPARISON: Correlation is made with prior MRI of the lumbar spine from 10/08/2009. FINDINGS: Curvature of the lumbar spine is normal. There is minimal retrolisthesis of L4 on L5. The vertebral body heights are maintained. The marrow signal intensity is unremarkable. No compression fracture is seen. No geographic marrow lesion is identified. There has been some progression of degenerative disc disease at the L3-4 and L4-5 levels since prior study. There is further disc space narrowing and desiccation seen. There is desiccation noted at all levels. The conus is unremarkable at the L1 level. T12-L1: Central canal is widely patent. Neural foramina are patent. L1-2: Unremarkable. L2-3: There is some mild broad-based left paramidline disc/osteophyte complex producing slight indentation upon the ventral thecal sac. Central canal remains patent. The neural foramina are patent. L3-4: Broad-based disc/osteophyte complex flattens the ventral thecal sac. There is narrowing of the lateral recesses bilaterally. No significant neural foraminal narrowing is seen. Very mild central canal narrowing is present. L4-5: Broad-based disc/osteophyte complex is noted with small midline wide-based disc bulge. Bilateral lateral recesses are narrowed. There is lnjc-at-wjbdokjr bilateral neural foraminal stenosis. Mild central canal narrowing is seen. L5-S1: Broad-based disc/osteophyte complex is present. This flattens the ventral thecal sac. This does result in significant right lateral recess stenosis. There is also mild right neural foraminal stenosis. Left neural foramen is patent. Paraspinous tissues are unremarkable. IMPRESSION: Multilevel lumbar spondylosis with multilevel lateral recess and neural foraminal narrowing described level by level above. There is mild central canal narrowing present as well, described above. Overall appearance is similar to perhaps slightly progressed when compared with examination dating back to 2009. Dictated by: Dictated on workstation # [id number]
== END ==
LOC: RAD 15:09
PROVIDERS: ATTEND Nurse Practitioner Family
DX: M48.07 Spinal stenosis, lumbosacral region (principal); M25.78 Osteophyte, vertebrae; M51.26 Other intervertebral disc displacement, lumbar region; M51.36 Other intervertebral disc degeneration, lumbar region; M47.816 Spondylosis without myelopathy or radiculopathy, lumbar region; Z98.890 Other specified postprocedural states
CPT/HCPCS: 72148

== ENCOUNTER 2018-10-15 13:36 | Inpatient (IN) | payer MEDICARE, MEDICAID ==
[~2018-10-15] VITALS: Ht 182.9 cm; Wt 138.8 kg
[2018-10-15] VITALS (12 sets, daily range): BP systolic 106–144; BP diastolic 57–88
[~2018-10-15 13:36] MED LIST changes: -SITA1TAB6; +SITA1TAB6 PO
[2018-10-15] MEDS ORDERED: proPOfol 200 MG/20 ML (DIPRIVAN) VIAL IV ONE (13:45)
[2018-10-15] MEDS ORDERED: PROPOFOL DRIP (ICU) 100 ML IV ONE (13:45)
--- NOTE | 2018-10-15 13:48 | NUR ---
1348- 20MG ETOMIDATE ADMINISTERED 1349- 100 MG SUCCS ADMINISTERED 1349- PT SUCTIONED 1350- PT INTUBATED. POSITIVE COLOR CHANGE. BILATERAL BREATH SOUNDS. 7.0 ETT. 25 @ THE LIPS 1352- ETT PULLED BACK TO 23 @ THE LIP 1355- PROPOFOL DRIP STARTED @ 40MCG/KG/MIN 1359- 10 MG PROPOFOL BOLUS ADMINISTERED BY Alivia ACOSTA ARPN 1402- FENTANYL 75MCG ADMINISTERED 1415- VERSED 3 MG ADMINISTERED 1419- PROPOFOL INCREASED TO 44MCG/KG/MIN 1423- 16FR OG TUBE INSERTED
[2018-10-15] MEDS: PROPOFOL DRIP (ICU) 100 ML IV SCH ×4 (13:55→22:13)
--- NOTE | 2018-10-15 14:00 | NUR ---
MOM TOLD STAFF MEMBERS THAT PT WAS SOB THIS MORNING, AND HE TOOK 80MG OF HIS OXYCONTIN.
[2018-10-15 14:01] LABS: ABG OXYGEN SATURATION 100 % (94-100); ABG PO2 302 MMHG (79-93); ABG TCO2 36.1 MMOL/L (21.0-31.0)
[2018-10-15 14:03] LABS: ALLENS TEST POSITIVE
[2018-10-15 14:04] LABS: ABG PCO2 108 MMHG (35-45); ABG PH 7.13 (7.37-7.43)
[2018-10-15 14:05] LABS: PATIENT TEMP 103.6; VENTILATOR YES
[2018-10-15] MEDS ORDERED: ACETAMINOPHEN 650 MG SUPP (TYLENOL) PR ONE (14:15)
[2018-10-15] MEDS ORDERED: NS IV 1000 ML 1,000 ML IV SCH (14:15)
[2018-10-15 14:41] LABS: BASOPHILS % (AUTO) 0 % (0-10); EOSINOPHILS # (AUTO) 0.1 10^3/uL (0.0-0.3); EOSINOPHILS % (AUTO) 1 % (0-10); HEMATOCRIT 44 % (40-54); HEMOGLOBIN 14.1 G/DL (13.3-17.7); LYMPHOCYTES # (AUTO) 0.6 X 10^3 (1.0-4.0); LYMPHOCYTES % (AUTO) 6 % (12-44); MEAN CORPUSCULAR HEMOGLOBIN 32 PG (25-34); MEAN CORPUSCULAR HGB CONC 32 G/DL (32-36); MEAN CORPUSCULAR VOLUME 98 FL (80-99); MEAN PLATELET VOLUME 10.7 FL (7.4-10.4); MONOCYTES # (AUTO) 0.5 X 10^3 (0.0-1.0); MONOCYTES % (AUTO) 6 % (0-12); NEUTROPHILS # (AUTO) 7.9 X 10^3 (1.8-7.8); NEUTROPHILS % (AUTO) 87 % (42-75); PLATELET COUNT 121 10^3/uL (130-400); RED CELL DISTRIBUTION WIDTH 14.9 % (10.0-14.5); WHITE BLOOD COUNT 9.1 10^3/uL (4.3-11.0)
--- NOTE | 2018-10-15 14:44 | ED Cough/URI ---
General Chief Complaint: Respiratory Problems Stated Complaint: SOB Nursing Triage Note: pt brought in by ems with complaint of soa that started last night. pt wears 2LNC at home. pt received breathing treatment by ems Sepsis Screen: No Definite Risk Source: patient Exam Limitations: no limitations History of Present Illness Date Seen by Provider: Oct 15, 2018 Time Seen by Provider: 14:44 Initial Comments To ER per EMS from home with reports of shortness of breath. This began last night. He has COPD and continues to smoke. Reports fever up to 101. He has had a cough. EMS found him to be very hypertensive at about 240/130. Mother states he took an extra oxycodone this morning and is concerned that may have contributed to his troubles. Timing/Duration: constant, getting worse Severity/Quality: productive cough Prior Episodes/Possible Cause: frequent episodes Associated Symptoms: cough, fever/chills, shortness of breath, wheezing Allergies and Home Medications Allergies Coded Allergies: hydrocodone (Verified Allergy, Unknown, TAKES OXYCODONE AT HOME, 05/05/16) STATES IS NOT ALLERGIC TO THIS MED latex (Verified Allergy, Unknown, 05/05/16) Home Medications Albuterol Sulfate 8.5 Gm Hfa.aer.ad, 2 PUFF IH Q4H PRN for SHORTNESS OF BREATH, (Reported) Albuterol Sulfate 2.5 Mg/3 Ml Vial.neb, 2.5 MG NEB Q4H PRN for WHEEZING, ( Reported) Alprazolam 1 Mg Tablet, 1 MG PO TID PRN for ANXIETY, (Reported) Cefdinir 300 Mg Capsule, 300 MG PO BID Prescribed by: SUSAN SOSA on 06/22/18 1114 Furosemide 20 Mg Tablet, 20 MG PO DAILY PRN for SWELLING, (Reported) Gabapentin 800 Mg Tablet, 800 MG PO TID, (Reported) Insulin Detemir 100 Unit/1 Ml Insuln.pen, 15 UNITS SC HS, (Reported) Insulin Lispro 100 Unit/1 Ml Insuln.pen, SC AC, (Reported) Metoprolol Succinate 50 Mg Tab.er.24h, 50 MG PO DAILY, (Reported) Oxycodone HCl 30 Mg Tablet, 30 MG PO Q6H PRN for PAIN-SEVERE, (Reported) Oxycodone HCl 80 Mg Tab.er.12h, 80 MG PO TID, (Reported) Prednisone 10 Mg Tab, 10 MG PO Q48H, (Reported) Prednisone 20 Mg Tab, 20 MG PO Q48H, (Reported) Promethazine HCl 25 Mg Tablet, 25 MG PO BID PRN for NAUSEA/VOMITING-2ND LINE, ( Reported) Patient Home Medication List Home Medication List Reviewed: Yes Review of Systems Review of Systems Constitutional: see HPI, chills, fever EENTM: see HPI Respiratory: see HPI, cough, dyspnea on exertion, short of breath Genitourinary: no symptoms reported Skin: no symptoms reported Psychiatric/Neurological: No Symptoms Reported Hematologic/Lymphatic: No Symptoms Reported Past Qvhbmee-Fwwgwa-Jiogtx Hx Patient Social History Alcohol Use: Denies Use Recreational Drug Use: No Drug of Choice: HX Smoking Status: Current Everyday Smoker Type Used: Cigarettes Former Smoker, Quit: Mar 06, 2016 2nd Hand Smoke Exposure: No Recent Foreign Travel: No Contact w/Someone Who Travel: No Recent Infectious Disease Expo: No Recent Hopitalizations: No Immunizations Up To Date Tetanus Booster (TDap): Unknown PED Vaccines UTD: Yes Date of Pneumonia Vaccine: Nov 12, 2012 Seasonal Allergies Seasonal Allergies: No Past Medical History Surgeries: Yes Abdominal, Cardiac, Orthopedic Respiratory: Yes Pneumonia, COPD Currently Using CPAP: Yes Currently Using BIPAP: Yes Cardiac: Yes Chronic Edema/Swelling, Hypertension, Peripheral Vascular Neurological: Yes (MONO NEURITIS; NEUROPATHY--WHEELCHAIR BOUND) Headaches /Migraines, Neuropathy Reproductive Disorders: No Sexually Transmitted Disease: No HIV/AIDS: No Genitourinary: Yes Bladder Infection, Kidney Stones, Renal Failure, UTI-Chronic Gastrointestinal: Yes (HEPATITIS C--NO TREATMENT. BILARY STENT) Gastroesophageal Reflux, Liver Disease/Jaundice, Hepatitis, Gall Bladder Disease Musculoskeletal: Yes Degenerate Disk Disease, Arthritis, Rheumatoid Arthritis, Chronic Back Pain Endocrine: Yes (MORBID OBESITY; ELEVATED URIC ACID) Diabetes, Insulin dep HEENT: No Loss of Vision: Denies Hearing Impairment: Denies Cancer: No Psychosocial: Yes Sleep Difficulties, Anxiety, Depression Integumentary: Yes Blood Disorders: No Family Medical History Alcoholism 03 FATHER Diabetes mellitus 03 FATHER Family history: Allergy 03 MOTHER Family history: Asthma 03 MOTHER Family history: Hypertension 03 FATHER 03 MOTHER No Pertinent Family Hx 09/2015--SEPTIC SHOCK WITH ACUTE RESPIRATORY FAILURE AND RENAL FAILURE--ON DIALYSIS AND VENTILATOR--HAD PNEUMONIA AND UTI Physical Exam Vital Signs - First Documented 10/15/18 10/15/18 13:38 14:36 Temp 103.1 Pulse 93 Resp 30 B/P (MAP) 200/106 (137) Pulse Ox 71 O2 Delivery OxyMask FiO2 100 Capillary Refill : Greater Than 3 Seconds Height: 6'0" Weight: 356lbs. 6.0oz. 161.797902dt; 46.9 BMI Method:Stated General Appearance: WD/WN, severe distress, obese, other (minimal air movement , wheezing. Using accessory muscles to breathe and is beyond the point of BiPAP. Elected to proceed with RSI. Patient states that he does want this if necessary.) Eyes: Bilateral Eye Normal Inspection, Bilateral Eye PERRL, Bilateral Eye EOMI HEENT: PERRL/EOMI, normal ENT inspection Neck: non-tender, full range of motion Respiratory: respiratory distress, decreased breath sounds (no), wheezing Cardiovascular: regular rate, rhythm, no murmur Gastrointestinal: normal bowel sounds, non tender, soft Extremities: normal range of motion, non-tender Neurologic/Psychiatric: alert, normal mood/affect, oriented x 3 Skin: normal color, warm/dry, other (peripheral mottling) Focused Exam Lactate Level 10/15/18 14:30: Lactic Acid Level 1.51 Lactic Acid Level Laboratory Tests Test 10/15/18 14:30 Lactic Acid Level 1.51 MMOL/L (0.50-2.00) Procedures/Interventions Lumen: triple Position: internal jugular (R) Anesthesia: local Volume Anesthetic (ccs): 5 Complications: none Post Position: sutured Date of ETT Placement: Oct 15, 2018 Time of ETT Placement: 1350 Intubation Method: orotracheal Tube Size: 7.50 Medications: Etomidate, Succinylcholine Positive End Tide CO2: Yes Breath Sounds after Intubation: bilateral-equal Intubation Complications: no complications Post Intubation Xray: Yes Progress/Results/Core Measures Suspected Sepsis Recent Fever Within 48 Hours: Yes Infection Criteria Present: None New/Unexplained Altered Menta: No Sepsis Screen: No Definite Risk SIRS Temperature:103.1 Pulse: 96 Respiratory Rate: 20 Laboratory Tests 10/15/18 14:30: White Blood Count 9.1 Blood Pressure 144 /88 Mean: 106 10/15/18 14:30: Lactic Acid Level 1.51 Laboratory Tests 10/15/18 14:30: Creatinine 0.87, Platelet Count 121L, Total Bilirubin 0.6 Results/Orders Lab Results Laboratory Tests Test 10/15/18 13:56 10/15/18 14:30 Range/Units Blood Gas Puncture Site LEFT RADIAL Blood Gas Patient Temperature 103.6 Arterial Blood pH 7.13 *L 7.37-7.43 Arterial Blood Partial Pressure CO2 108 *H 35-45 MMHG Arterial Blood Partial Pressure O2 302 H 79-93 MMHG Arterial Blood HCO3 33 H 23-27 MMOL/L Arterial Blood Total CO2 36.1 H 21.0-31.0 MMOL/L Arterial Blood Oxygen Saturation 100 94-100 % Arterial Blood Base Excess 5.0 H -2.5-2.5 MMOL/L Yonathan Test POSITIVE Blood Gas Ventilator Setting YES Blood Gas Inspired Oxygen UNK White Blood Count 9.1 4.3-11.0 10^3/uL Red Blood Count 4.46 4.35-5.85 10^6/uL Hemoglobin 14.1 13.3-17.7 G/DL Hematocrit 44 40-54 % Mean Corpuscular Volume 98 80-99 FL Mean Corpuscular Hemoglobin 32 25-34 PG Mean Corpuscular Hemoglobin Concent 32 32-36 G/DL Red Cell Distribution Width 14.9 H 10.0-14.5 % Platelet Count 121 L 130-400 10^3/uL Mean Platelet Volume 10.7 H 7.4-10.4 FL Neutrophils (%) (Auto) 87 H 42-75 % Lymphocytes (%) (Auto) 6 L 12-44 % Monocytes (%) (Auto) 6 0-12 % Eosinophils (%) (Auto) 1 0-10 % Basophils (%) (Auto) 0 0-10 % Neutrophils # (Auto) 7.9 H 1.8-7.8 X 10^3 Lymphocytes # (Auto) 0.6 L 1.0-4.0 X 10^3 Monocytes # (Auto) 0.5 0.0-1.0 X 10^3 Eosinophils # (Auto) 0.1 0.0-0.3 10^3/uL Basophils # (Auto) 0.0 0.0-0.1 10^3/uL Urine Color YELLOW Urine Clarity CLEAR Urine pH 5 5-9 Urine Specific [place] 1.025 H 1.016-1.022 Urine Protein 3+ H NEGATIVE Urine Glucose (UA) NEGATIVE NEGATIVE Urine Ketones NEGATIVE NEGATIVE Urine Nitrite NEGATIVE NEGATIVE Urine Bilirubin NEGATIVE NEGATIVE Urine Urobilinogen NORMAL NORMAL MG/DL Urine Leukocyte Esterase NEGATIVE NEGATIVE Urine RBC (Auto) NEGATIVE NEGATIVE Urine RBC NONE /HPF Urine WBC 0-2 /HPF Urine Squamous Epithelial Cells RARE /HPF Urine Crystals NONE /LPF Urine Bacteria TRACE /HPF Urine Casts NONE /LPF Urine Mucus NEGATIVE /LPF Urine Culture Indicated NO Sodium Level 137 135-145 MMOL/L Potassium Level 4.5 3.6-5.0 MMOL/L Chloride Level 99 98-107 MMOL/L Carbon Dioxide Level 27 21-32 MMOL/L Anion Gap 11 5-14 MMOL/L Blood Urea Nitrogen 14 7-18 MG/DL Creatinine 0.87 0.60-1.30 MG/DL Estimat Glomerular Filtration Rate > 60 BUN/Creatinine Ratio 16 Glucose Level 155 H 70-105 MG/DL Lactic Acid Level 1.51 0.50-2.00 MMOL/L Calcium Level 10.5 H 8.5-10.1 MG/DL Corrected Calcium 10.7 H 8.5-10.1 MG/DL Total Bilirubin 0.6 0.1-1.0 MG/DL Aspartate Amino Transf (AST/SGOT) 52 H 5-34 U/L Alanine Aminotransferase (ALT/SGPT) 46 0-55 U/L Alkaline Phosphatase 70 40-136 U/L Total Protein 7.1 6.4-8.2 GM/DL Albumin 3.7 3.2-4.5 GM/DL Micro Results Microbiology 10/15/18 Influenza Types A,B Antigen (RAMEZ) - Final, Complete My Orders Orders - CANDACE ACOSTA APRN Propofol Injection (Diprivan Injection) (10/15/18 13:45) Propofol Drip (Icu) (Diprivan Drip (Icu) (10/15/18 13:45) Arterial Blood Gas (10/15/18 13:54) Cbc With Automated Diff (10/15/18 13:54) Comprehensive Metabolic Panel (10/15/18 13:54) Lactic Acid Analyzer (10/15/18 13:54) Ua Culture If Indicated (10/15/18 13:54) Catheter(Urinary) Insert & Ass 03,15 (10/15/18 13:54) Chest 1 View, Ap/Pa Only (10/15/18 13:58) Iv/Invasive Line Insertion .IV start (10/15/18 13:58) Sputum Culture (10/15/18 13:58) Influenza A And B Antigens (10/15/18 13:58) Ns Iv 1000 Ml (Sodium Chloride 0.9%) (10/15/18 14:15) Acetaminophen Suppository (Tylenol Suppo (10/15/18 14:15) Propofol Drip (Icu) (Diprivan Drip (Icu) (10/15/18 13:55) Manual Differential (10/15/18 14:30) Ct Head Wo (10/15/18 15:02) Medications Given in ED Current Medications Medications Dose Ordered Sig/Lashawn Route Start Time Stop Time Status Last Admin Dose Admin Acetaminophen 650 mg ONCE ONCE MA 10/15/18 14:15 10/15/18 14:16 DC 10/15/18 14:35 650 MG Vital Signs/I&O 10/15/18 10/15/18 10/15/18 13:38 13:55 14:36 Temp 103.1 103.1 Pulse 93 96 96 Resp 30 20 20 B/P (MAP) 200/106 (137) 144/88 Pulse Ox 71 100 100 O2 Delivery OxyMask FiO2 100 Capillary Refill : Greater Than 3 Seconds Blood Pressure Mean: 106 Diagnostic Imaging Diagonstic Imaging: Xray (G) Comments NAME: STEVEN STEPHENS MED REC#: [id number] PT STATUS: REG ER : 1965 PHYSICIAN: CANDACE ACOSTA APRN ADMIT DATE: 10/15/18/ER Draft Date of Exam:10/15/18 CHEST 1 VIEW, AP/PA ONLY INDICATION: ET tube and central line. EXAMINATION: Single view of the chest was obtained. FINDINGS: ET tube in the mid thoracic trachea. OG catheter goes beneath the diaphragm. Right IJ near the innominate junctions. There is no pneumothorax. The cardiomediastinal contour is stable given extensive apical lordotic orientation of the film as well as portable supine technique. The heart is mildly enlarged. There is some vascular congestion, unchanged. IMPRESSION: Borderline cardiomegaly and vascular congestion. Support apparatus positioned satisfactorily with no pneumothorax. Dictated on workstation # [id number] Dict: 10/15/18 1455 Trans: 10/15/18 5580 PJE [id number] Interpreted by: MALLORY LÓPEZ Electronically signed by: Departure Communication (Admissions) I discussed the case with Dr. Hall. Agrees to consult. Immediately upon arrival he had a 20-gauge to the volar right wrist. Multiple attempts were made to establish additional IV access and were unsuccessful. Due to failing respiratory status with tachypnea, diminished lung sounds and hypoxia with initial oxygen saturation in the 70% range he was intubated with a size 7.5 endotracheal tube using etomidate 20 mg and succinylcholine 100 mg. Easily intubated 1 attempt. Initially only had lung sounds on the right and on the left so the tube was withdrawn about 1-2 cm until breath sounds were equal bilaterally though still diminished. Endotracheal tube was secured and he was started on the ventilator. Settings are rate of 20, mode is assist-control tidal volume of 500 PEEP of 5 and 70 % FiO2. A right internal jugular central line was started using ultrasound guidance. No complications. Neck with intubation and the use of sedatives his pressure came down to 153/87, heart rate 96 sinus no ectopy. Impression Primary Impression: Acute respiratory failure Qualified Codes: J96.01 - Acute respiratory failure with hypoxia; J96.02 - Acute respiratory failure with hypercapnia Additional Impressions: Hypercapnia Influenza Disposition: ADMITTED INPATIENT Condition: Stable Admissions Decision to Admit Reason: Admit from ER (General) Decision to Admit/Date: Oct 15, 2018 Time/Decision to Admit Time: 14:57 Departure-Patient Inst. Referrals: GLENN SHAHID MD (PCP/Family) Primary Care Physician CANDACE ACOSTA APRN Oct 15, 2018 14:44
[2018-10-15 14:56] LABS: BILIRUBIN,URINE NEGATIVE (NEGATIVE); CLARITY,URINE CLEAR; COLOR,URINE YELLOW; GLUCOSE, URINE (UA) NEGATIVE (NEGATIVE); KETONES,URINE NEGATIVE (NEGATIVE); LEUKOCYTE ESTERASE ,URINE NEGATIVE (NEGATIVE); NITRITE,URINE NEGATIVE (NEGATIVE); PH,URINE 5 (5-9); PROTEIN,URINE 3+ (NEGATIVE); UROBILINOGEN,URINE NORMAL (NORMAL)
[2018-10-15 15:04] LABS: ALANINE AMINOTRANSFERASE 46 U/L (0-55); ALBUMIN 3.7 GM/DL (3.2-4.5); ALKALINE PHOSPHATASE 70 U/L (40-136); BILIRUBIN,TOTAL 0.6 MG/DL (0.1-1.0); BUN/CREATININE RATIO 16; CALCIUM 10.5 MG/DL (8.5-10.1); CARBON DIOXIDE 27 MMOL/L (21-32); CHLORIDE 99 MMOL/L (98-107); CREATININE SERUM 0.87 MG/DL (0.60-1.30); GFR ESTIMATED > 60; GLUCOSE 155 MG/DL (70-105); POTASSIUM 4.5 MMOL/L (3.6-5.0); SODIUM 137 MMOL/L (135-145); TOTAL PROTEIN 7.1 GM/DL (6.4-8.2)
--- NOTE | 2018-10-15 15:10 | Diagnostic Imaging Report ---
INDICATION: ET tube and central line. EXAMINATION: Single view of the chest was obtained. FINDINGS: ET tube in the mid thoracic trachea. OG catheter goes beneath the diaphragm. Right IJ near the innominate junctions. There is no pneumothorax. The cardiomediastinal contour is stable given extensive apical lordotic orientation of the film as well as portable supine technique. The heart is mildly enlarged. There is some vascular congestion, unchanged. IMPRESSION: Borderline cardiomegaly and vascular congestion. Support apparatus positioned satisfactorily with no pneumothorax. Dictated by: Dictated on workstation # [id number]
[2018-10-15 15:12] LABS: BACTERIA,URINE TRACE /HPF; SQUAMOUS EPITHELIAL CELL,UR RARE /HPF; WBC,URINE 0-2 /HPF
[2018-10-15] MEDS ORDERED: methylPREDNISolone 125 MG (Solu-MEDROL) VIAL IVP ONE (15:15)
[2018-10-15 15:38] LABS: ANISOCYTOSIS SLIGHT; BAND NEUTROPHILS 5 %; BASOPHILS % (MANUAL) 0 %; EOSINOPHILS % (MANUAL) 0 %; LYMPHOCYTES % (MANUAL) 6 %; MONOCYTES % (MANUAL) 1 %; NEUTROPHILS % (MANUAL) 88 %
--- NOTE | 2018-10-15 16:29 | Diagnostic Imaging Report ---
PROCEDURE: CT head without contrast. TECHNIQUE: Multiple contiguous axial images were obtained through the brain without the use of intravenous contrast. INDICATION: Possible stroke. FINDINGS: There is no intracranial hemorrhage. There is no hydrocephalus. No edema, mass, or mass effect. The basilar cisterns are patent and there is no sulcal effacement. No evidence for elevated intracranial pressures. The orbits, sinuses, and calvarium are unremarkable. Galvan-white matter interface is maintained. IMPRESSION: Unremarkable head CT revealed no hemorrhage, edema, or acute-appearing abnormalities. Dictated by: Dictated on workstation # [id number]
--- NOTE | 2018-10-15 16:41 | Pulmonary Consultation ---
History of Present Illness History of Present Illness Date of Consultation 10/15/18 16:36 Date of Admission Allergies and Home Medications Allergies Coded Allergies: hydrocodone (Verified Allergy, Unknown, TAKES OXYCODONE AT HOME, 05/05/16) STATES IS NOT ALLERGIC TO THIS MED latex (Verified Allergy, Unknown, 05/05/16) Home Medications Albuterol Sulfate 8.5 Gm Hfa.aer.ad, 2 PUFF IH Q4H PRN for SHORTNESS OF BREATH, (Reported) Albuterol Sulfate 2.5 Mg/3 Ml Vial.neb, 2.5 MG NEB Q4H PRN for WHEEZING, ( Reported) Alprazolam 1 Mg Tablet, 1 MG PO TID PRN for ANXIETY, (Reported) Cefdinir 300 Mg Capsule, 300 MG PO BID Prescribed by: SUSAN SOSA on 06/22/18 1114 Furosemide 20 Mg Tablet, 20 MG PO DAILY PRN for SWELLING, (Reported) Gabapentin 800 Mg Tablet, 800 MG PO TID, (Reported) Insulin Detemir 100 Unit/1 Ml Insuln.pen, 15 UNITS SC HS, (Reported) Insulin Lispro 100 Unit/1 Ml Insuln.pen, SC AC, (Reported) Metoprolol Succinate 50 Mg Tab.er.24h, 50 MG PO DAILY, (Reported) Oxycodone HCl 30 Mg Tablet, 30 MG PO Q6H PRN for PAIN-SEVERE, (Reported) Oxycodone HCl 80 Mg Tab.er.12h, 80 MG PO TID, (Reported) Prednisone 10 Mg Tab, 10 MG PO Q48H, (Reported) Prednisone 20 Mg Tab, 20 MG PO Q48H, (Reported) Promethazine HCl 25 Mg Tablet, 25 MG PO BID PRN for NAUSEA/VOMITING-2ND LINE, ( Reported) Past Sgmowrj-Exerwl-Uiulsw Hx Patient Social History Alcohol Use: Denies Use Recreational Drug Use: No Drug of Choice: HX Smoking Status: Current Everyday Smoker Type Used: Cigarettes Former Smoker, Quit: Mar 06, 2016 2nd Hand Smoke Exposure: No Recent Foreign Travel: No Contact w/Someone Who Travel: No Recent Infectious Disease Expo: No Recent Hopitalizations: No Immunizations Up To Date Tetanus Booster (TDap): Unknown PED Vaccines UTD: Yes Date of Pneumonia Vaccine: Nov 12, 2012 Seasonal Allergies Seasonal Allergies: No Past Medical History Surgeries: Yes Abdominal, Cardiac, Orthopedic Respiratory: Yes Pneumonia, COPD Currently Using CPAP: Yes Currently Using BIPAP: Yes Cardiac: Yes Chronic Edema/Swelling, Hypertension, Peripheral Vascular Neurological: Yes (MONO NEURITIS; NEUROPATHY--WHEELCHAIR BOUND) Headaches /Migraines, Neuropathy Reproductive Disorders: No Sexually Transmitted Disease: No HIV/AIDS: No Genitourinary: Yes Bladder Infection, Kidney Stones, Renal Failure, UTI-Chronic Gastrointestinal: Yes (HEPATITIS C--NO TREATMENT. BILARY STENT) Gastroesophageal Reflux, Liver Disease/Jaundice, Hepatitis, Gall Bladder Disease Musculoskeletal: Yes Degenerate Disk Disease, Arthritis, Rheumatoid Arthritis, Chronic Back Pain Endocrine: Yes (MORBID OBESITY; ELEVATED URIC ACID) Diabetes, Insulin dep HEENT: No Loss of Vision: Denies Hearing Impairment: Denies Cancer: No Psychosocial: Yes Sleep Difficulties, Anxiety, Depression Integumentary: Yes Blood Disorders: No Family Medical History Alcoholism 03 FATHER Diabetes mellitus 03 FATHER Family history: Allergy 03 MOTHER Family history: Asthma 03 MOTHER Family history: Hypertension 03 FATHER 03 MOTHER No Pertinent Family Hx 09/2015--SEPTIC SHOCK WITH ACUTE RESPIRATORY FAILURE AND RENAL FAILURE--ON DIALYSIS AND VENTILATOR--HAD PNEUMONIA AND UTI Sepsis Event Evaluation Height, Weight, BMI Height: 6'0" Weight: 356lbs. 6.0oz. 161.225788zz; 46.9 BMI Method:Stated Exam Exam Vital Signs Date Time Temp Pulse Resp B/P (MAP) Pulse Ox O2 Delivery O2 Flow Rate FiO2 10/15/18 14:36 96 20 100 100 10/15/18 13:55 103.1 96 20 144/88 100 10/15/18 13:38 103.1 93 30 200/106 (137) 71 OxyMask Height & Weight Height: 6'0" Weight: 356lbs. 6.0oz. 161.567887xn; 46.9 BMI Method:Stated Capillary Refill: Greater Than 3 Seconds Gastrointestinal: normal bowel sounds, non tender, soft Results Lab Laboratory Tests 10/15/18 14:30 Assessment/Plan Assessment/Plan Acute respiratory failure -Continue ventilator care -Check ABG Influenza A -Tamiflu Severe sepsis with pneumonia -Vides cultures -Start vanco zosyn and await cultures. ARLEN PEGUERO DO Oct 15, 2018 16:41
--- NOTE | 2018-10-15 16:57 | History & Physical-Hospitalist ---
History of Present Illness HPI/Chief Complaint Pt is a 53yoCM known to me from previous admissions who presented to the ER in extremis due to repsiratory compromise. He is intubated and sedated and unable to provide me any history. His mother is at bedside who states symptoms started 3 days ago. He developed cough 2 days ago and today became short of breath. His mom gave him a breathing treatment but that did not help. She noticed he was struggling more to breath and decided to call 911. She did relay to the ER PATROL POLICE SERGEANT that he had also taken an extra dose of his oxycodone today as well. On arrival he was in severe respiratory distress and was intubated emergently. Source: family Exam Limitations: clinical condition Date Seen 10/15/18 Time Seen by a Provider: 16:00 Attending Physician Susan Mittal MD PCP Kel Wright MD Referring Physician Date of Admission Oct 15, 2018 at 15:03 Home Medications & Allergies Home Medications Reviewed patient Home Medication Reconciliation performed by pharmacy medication reconciliations accounts payable technician and/or nursing. Patients Allergies have been reviewed. Allergies Allergies Coded Allergies hydrocodone (Verified Allergy, Unknown, TAKES OXYCODONE AT HOME, 05/05/16) STATES IS NOT ALLERGIC TO THIS MED latex (Verified Allergy, Unknown, 05/05/16) Past Erxariw-Biruxh-Zafquy Hx Past Med/Social Hx: Reviewed Nursing Past Med/Soc Hx Patient Social History Marrital Status: single Alcohol Use: Denies Use Recreational Drug Use: No Drug of Choice: HX Former Smoker, Quit: Mar 06, 2016 Type Used: Cigarettes 2nd Hand Smoke Exposure: No Recent Foreign Travel: No Contact w/other who traveled: No Recent Hopitalizations: No Recent Infectious Disease Expo: No Immunizations Up To Date Tetanus Booster (TDap): Unknown Pediatric: Yes Date of Pneumonia Vaccine: Nov 12, 2012 Seasonal Allergies Seasonal Allergies: No Past Medical History Surgeries: Abdominal, Cardiac, Orthopedic Respiratory: COPD Currently Using CPAP: Yes Currently Using BIPAP: Yes Cardiac: Chronic Edema/Swelling, Hypertension, Peripheral Vascular Neurological: Headaches /Migraines, Neuropathy Reproductive: No Sexually Transmitted Disease: No HIV/AIDS: No Genitourinary: Bladder Infection, Kidney Stones, Renal Failure, UTI-Chronic Gastrointestinal: Gastroesophageal Reflux, Liver Disease/Jaundice, Hepatitis, Gall Bladder Disease Musculoskeletal: Degenerate Disk Disease, Arthritis, Rheumatoid Arthritis, Chronic Back Pain Endocrine: Diabetes, Insulin dep Loss of Vision: Denies Hearing Impairment: Denies Psychosocial: Sleep Difficulties, Anxiety, Depression History of Blood Disorders: No Family History Alcoholism 03 FATHER Diabetes mellitus 03 FATHER Family history: Allergy 03 MOTHER Family history: Asthma 03 MOTHER Family history: Hypertension 03 FATHER 03 MOTHER No Pertinent Family Hx 09/2015--SEPTIC SHOCK WITH ACUTE RESPIRATORY FAILURE AND RENAL FAILURE--ON DIALYSIS AND VENTILATOR--HAD PNEUMONIA AND UTI Review of Systems ROS-Unable to Obtain: Intubated Constitutional: see HPI Physical Exam Physical Exam Vital Signs Vital Signs - First Documented 10/15/18 10/15/18 10/15/18 13:38 14:36 16:35 Temp 103.1 Pulse 93 Resp 30 B/P (MAP) 200/106 (137) Pulse Ox 71 O2 Delivery OxyMask O2 Flow Rate 40.00 FiO2 100 Capillary Refill : Greater Than 3 Seconds Height, Weight, BMI Height: 6'0" Weight: 356lbs. 6.0oz. 161.149784he; 46.9 BMI Method:Stated General Appearance: Chronically ill, Obese Neck: Normal Inspection, Non Tender, Other (central line in place) Respiratory: Respiratory Distress, Rhonci; No Wheezing; Other (intubated) Cardiovascular: Regular Rate, Rhythm, No Murmur, Normal Peripheral Pulses Gastrointestinal: Normal Bowel Sounds, Non Tender, Soft Genital/Rectal: Other (villalobos in place) Extremity: No Calf Tenderness, Other (right lower extremity edema at baseline per mom) Neurologic/Psychiatric: Other (sedated) Skin: Other (scar consistent with skin graft on right lower extremity) Results Results/Procedures Labs Laboratory Tests 10/15/18 14:30 10/16/18 03:14 Patient resulted labs reviewed. Imaging: Reviewed Imaging Report Assessment/Plan Admission Diagnosis Acute Respiratory Failure Admission Status: Inpatient Order (span 2 midnights) Reason for Inpatient Admission: On vent Diagnosis/Problems Diagnosis/Problems (1) Acute respiratory failure Status: Acute Assessment & Plan: Maintain on Vent Pulm consulted, appreciate recs Repeat ABG Qualifiers: Respiratory failure complication: hypoxia and hypercapnia Qualified Codes: J96.01 - Acute respiratory failure with hypoxia; J96.02 - Acute respiratory failure with hypercapnia (2) Influenza Status: Acute Assessment & Plan: Influenza A positive Tamiflu (3) Diabetes mellitus Status: Chronic Assessment & Plan: SSI Anticipate higher sugars with critical illness and steroids Qualifiers: Diabetes mellitus type: type 2 Diabetes mellitus tailor's aide insulin use: with tailor's aide use Diabetes mellitus complication status: with unspecified complications Qualified Codes: E11.8 - Type 2 diabetes mellitus with unspecified complications; Z79.4 - half-way (current) use of insulin (4) Thrombocytopenia Status: Chronic Assessment & Plan: Likely due to liver disease from Hep C SUSAN MITTAL MD Oct 15, 2018 16:57
[2018-10-15] MEDS ORDERED: PHARMACY TO DOSE IV SCH (17:00)
[2018-10-15] MEDS: NS IV 1000 ML 1,000 ML IV SCH ×2 (17:08→23:57)
[2018-10-15] MEDS ORDERED: PIPERACILLIN/TAZO 4.5 GM/NS 100 ML IV NR ×2 (17:10)
--- NOTE | 2018-10-15 17:16 | NUR ---
PHARMACY TO DOSE VANCOMYCIN. 137KG, CRCL >100 WILL BOLUS WITH 2500MG THEN DOSE AT 2G BID. TROUGH ORDERED PRIOR TO 4TH DOSE ON 10/17 @0500. HOLD IF GREATER THAN 20.
[2018-10-15] MEDS ORDERED: ACETAMINOPHEN 650 MG SUPP (TYLENOL) PR PRN (17:45)
[2018-10-15] MEDS ORDERED: IBUPROFEN SUSP 100MG/5ML (MOTRIN) UDC NG PRN (17:45)
[2018-10-15] MEDS ORDERED: VANCOMYCIN INJECTION 2,500 MG in NS IV 500 ML 500 ML IV NR (18:00)
[2018-10-15 18:43] LABS: AMPHETAMINE SCREEN, URINE NEGATIVE (NEGATIVE); BARBITURATE SCREEN URINE NEGATIVE (NEGATIVE); BENZODIAZEPINES SCREEN URINE POSITIVE (NEGATIVE); CANNABINOID SCREEN, URINE NEGATIVE (NEGATIVE); COCAINE SCREEN URINE NEGATIVE (NEGATIVE); METHADONE STAT NEGATIVE (NEGATIVE); METHAMPHETAMINE SCREEN URINE S NEGATIVE (NEGATIVE); OPIATE SCREEN URINE NEGATIVE (NEGATIVE); OXYCODONE STAT POSITIVE (NEGATIVE); PROPOXYPHENE STAT NEGATIVE (NEGATIVE); TRICYCLIC ANTIDEPRESSANTS SCRE NEGATIVE (NEGATIVE)
[2018-10-15 18:50] LABS: BILIRUBIN,URINE NEGATIVE (NEGATIVE); CLARITY,URINE CLEAR; COLOR,URINE YELLOW; GLUCOSE, URINE (UA) NEGATIVE (NEGATIVE); KETONES,URINE NEGATIVE (NEGATIVE); LEUKOCYTE ESTERASE ,URINE NEGATIVE (NEGATIVE); NITRITE,URINE NEGATIVE (NEGATIVE); PH,URINE 5 (5-9); PROTEIN,URINE 3+ (NEGATIVE); UROBILINOGEN,URINE NORMAL (NORMAL)
[2018-10-15] MEDS ORDERED: FLU QUADRIvalent (5+ YOA) 2018-2019 (AFLURIA) 0.5 ML IM ONE (19:15)
[2018-10-15 19:32] LABS: RBC,URINE 25-50 /HPF
[2018-10-15 19:33] LABS: BACTERIA,URINE NEGATIVE /HPF; SQUAMOUS EPITHELIAL CELL,UR 0-2 /HPF
[2018-10-15] MEDS: OSELTAMIVIR 6 MG/ML (TAMIFLU) 60 ML BOT PO SCH (19:51)
[2018-10-15] MEDS ORDERED: RT-ALBUTEROL/IPRATROPIUM 3 ML (DUONEB) VIAL INH PRN (21:00)
[2018-10-15] MEDS: RT-ALBUTEROL/IPRATROPIUM 3 ML (DUONEB) VIAL INH SCH (21:04)
[2018-10-15 21:58] LABS: ABG BASE EXCESS 4.2 MMOL/L (-2.5-2.5); ABG OXYGEN SATURATION 95 % (94-100); ABG PCO2 60 MMHG (35-45); ABG PO2 67 MMHG (79-93)
[2018-10-15 22:00] LABS: ALLENS TEST POSITIVE
[2018-10-15 22:01] LABS: ABG PH 7.32 (7.37-7.43); INSPIRED O2 40% FIO2; VENTILATOR YES
[2018-10-15] MEDS: PIPERACILLIN/TAZOBACTAM (BULK) 4.5 GM in NS (IVPB) 100 ML IV SCH (22:12)
[2018-10-15] MEDS: methylPREDNISolone 125 MG (Solu-MEDROL) VIAL IVP SCH (22:13)
[2018-10-15] MEDS: fentaNYL INJECTION 100 MCG/2 ML AMP IV PRN ×2 (22:35→23:58)
[2018-10-15] MEDS: inSUlin ASPART (NovoLOG) 1 UNIT/0.01 ML (CHARGE PER UNIT) SC SCH (22:35)
--- NOTE | 2018-10-15 22:56 | NUR ---
PT MOTHER AT BEDSIDE, THIS RN UPDATED HER ON PT CONDITION. PT HOME DOSE OF PAIN MEDS DISCUSSED WITH PT MOM, PT MOM STATED "HE TOOK ONLY PRESCRIBED DOSE OF OXYCONTIN TODAY AND MAYBE X1 DOSE OF PRN PAIN MEDICATION; PT CAN'T GO LONG WITHOUT PAIN MEDICATION." THIS RN NOTIFIED E-ICU, ORDERS FOR FENTANYL 50-100MCG EVERY 30 MINUTES PRN. UPDATED PT MOM. THIS RN ATTEMPTED TO EDUCATE PT FAMILY ON PAIN MEDICATION, REINFORCEMENT NEEDED.
[2018-10-16] VITALS (34 sets, daily range): BP systolic 82–170; BP diastolic 45–89
[2018-10-16] MEDS: inSUlin ASPART (NovoLOG) 1 UNIT/0.01 ML (CHARGE PER UNIT) SC SCH ×4 (00:14→17:44)
[2018-10-16] MEDS: PROPOFOL DRIP (ICU) 100 ML IV SCH ×11 (00:22→20:41)
[2018-10-16] MEDS ORDERED: NS (IVPB) 100 ML ONE (00:25)
[2018-10-16] MEDS ORDERED: fentaNYL (OMNICELL DRIP KIT ONLY) 250 MCG/5 ML AMP ONE (00:25)
[2018-10-16] MEDS: fentaNYL 1,250 MCG/NS 250 ML DRIP IV SCH ×4 (00:42→09:43)
[2018-10-16] MEDS: RT-ALBUTEROL/IPRATROPIUM 3 ML (DUONEB) VIAL INH SCH ×6 (01:35→22:36)
[2018-10-16] MEDS: LORazepam INJ 2 MG/ML (ATIVAN) VIAL IV PRN ×4 (02:04→23:49)
[2018-10-16] MEDS: fentaNYL INJECTION 100 MCG/2 ML AMP IV PRN ×4 (02:04→21:46)
[2018-10-16 03:57] LABS: BASOPHILS % (AUTO) 0 % (0-10); EOSINOPHILS % (AUTO) 0 % (0-10); HEMATOCRIT 40 % (40-54); HEMOGLOBIN 12.7 G/DL (13.3-17.7); LYMPHOCYTES # (AUTO) 0.4 X 10^3 (1.0-4.0); LYMPHOCYTES % (AUTO) 5 % (12-44); MEAN CORPUSCULAR HEMOGLOBIN 32 PG (25-34); MEAN CORPUSCULAR HGB CONC 31 G/DL (32-36); MEAN CORPUSCULAR VOLUME 100 FL (80-99); MEAN PLATELET VOLUME 11.2 FL (7.4-10.4); MONOCYTES # (AUTO) 0.2 X 10^3 (0.0-1.0); MONOCYTES % (AUTO) 2 % (0-12); NEUTROPHILS # (AUTO) 8.2 X 10^3 (1.8-7.8); NEUTROPHILS % (AUTO) 93 % (42-75); PLATELET COUNT 114 10^3/uL (130-400); RED CELL DISTRIBUTION WIDTH 14.9 % (10.0-14.5); WHITE BLOOD COUNT 8.8 10^3/uL (4.3-11.0)
[2018-10-16 04:09] LABS: BUN/CREATININE RATIO 14; CALCIUM 9.6 MG/DL (8.5-10.1); CARBON DIOXIDE 19 MMOL/L (21-32); CHLORIDE 104 MMOL/L (98-107); GFR ESTIMATED > 60; GLUCOSE 329 MG/DL (70-105); MAGNESIUM 2.2 MG/DL (1.8-2.4); PHOSPHORUS 2.2 MG/DL (2.3-4.7); POTASSIUM 4.6 MMOL/L (3.6-5.0); SODIUM 139 MMOL/L (135-145)
[2018-10-16 04:14] LABS: ABG BASE EXCESS -1.1 MMOL/L (-2.5-2.5); ABG OXYGEN SATURATION 95 % (94-100); ABG PCO2 60 MMHG (35-45); ABG PO2 77 MMHG (79-93); ABG TCO2 27.3 MMOL/L (21.0-31.0)
[2018-10-16 04:20] LABS: ALLENS TEST POSITIVE; INSPIRED O2 40% FIO2; PATIENT TEMP 97.5; VENTILATOR YES
[2018-10-16 04:21] LABS: ABG PH 7.25 (7.37-7.43)
--- NOTE | 2018-10-16 04:34 | Pulmonary Progress Note ---
Subjective Time Seen by a Provider: 05:19 Subjective/Events-last exam PT is sedated on vent. Sepsis Event Evaluation Height, Weight, BMI Height: 6'0.00" Weight: 303lbs. 0.0oz. 137.645636mn; 41.1 BMI Method:Stated Focused Exam Lactate Level 10/15/18 14:30: Lactic Acid Level 1.51 10/15/18 17:24: Lactic Acid Level 1.31 Exam Exam Vital Signs Date Time Temp Pulse Resp B/P (MAP) Pulse Ox O2 Delivery O2 Flow Rate FiO2 10/16/18 04:19 99/49 10/16/18 04:11 101 22 94 40 10/16/18 04:00 102 22 96/48 (64) 94 Mechanical Ventilator 40.00 10/16/18 04:00 94 Mechanical Ventilator 40 10/16/18 03:53 97.5 10/16/18 03:00 105 16 107/69 (82) 94 Mechanical Ventilator 40.00 10/16/18 02:05 119/62 10/16/18 02:00 95 20 119/62 (81) 93 Mechanical Ventilator 40.00 10/16/18 01:35 80 22 94 40 10/16/18 01:00 82 10/16/18 01:00 81 22 104/55 (71) 94 Mechanical Ventilator 40.00 10/16/18 00:22 107/57 10/16/18 00:00 81 20 116/63 (80) 93 Mechanical Ventilator 40.00 10/16/18 00:00 93 Mechanical Ventilator 40 10/15/18 23:00 97.0 82 23 112/59 (76) 94 Mechanical Ventilator 40.00 10/15/18 22:57 84 22 94 40 10/15/18 22:13 124/67 10/15/18 22:00 87 25 124/67 (86) 94 Mechanical Ventilator 40.00 10/15/18 21:04 76 20 94 40 10/15/18 21:00 79 24 120/68 (85) 94 Mechanical Ventilator 40.00 10/15/18 20:00 80 19 128/69 (88) 94 Mechanical Ventilator 40.00 10/15/18 20:00 94 Mechanical Ventilator 40 10/15/18 19:56 97.0 10/15/18 19:50 110/66 10/15/18 19:00 75 10/15/18 19:00 80 26 106/62 (77) 94 Mechanical Ventilator 40.00 10/15/18 18:32 80 20 95 40 10/15/18 18:09 81 10/15/18 18:00 80 23 109/64 (79) 95 Mechanical Ventilator 40.00 10/15/18 17:38 100 Mechanical Ventilator 40 10/15/18 17:25 97 20 100 40 10/15/18 17:00 85 21 113/71 (85) Mechanical Ventilator 40.00 10/15/18 16:35 99.3 84 22 126/78 (94) 96 Mechanical Ventilator 40.00 10/15/18 16:10 89 21 143/80 (101) 99 Room Air 10/15/18 14:36 96 20 100 100 10/15/18 13:55 103.1 96 20 144/88 100 10/15/18 13:38 103.1 93 30 200/106 (137) 71 OxyMask I & O 10/16/18 07:00 Intake Total 1745 ml Output Total 1750 ml Balance -5 ml Height & Weight Height: 6'0.00" Weight: 303lbs. 0.0oz. 137.556514es; 41.1 BMI Method:Stated General Appearance: Chronically ill, Obese Neck: Normal Inspection, Non Tender, Other (central line in place) Respiratory: Respiratory Distress, Rhonci; No Wheezing; Other (intubated) Cardiovascular: Regular Rate, Rhythm, No Murmur, Normal Peripheral Pulses Capillary Refill: Greater Than 3 Seconds Gastrointestinal: normal bowel sounds, non tender, soft Extremity: No Calf Tenderness, Other (right lower extremity edema at baseline per mom) Neurologic/Psychiatric: Other (sedated) Skin: Other (scar consistent with skin graft on right lower extremity) Results Lab Laboratory Tests 10/15/18 14:30 10/16/18 03:14 Assessment/Plan Assessment/Plan Acute respiratory failure -Continue ventilator care -PT is not ready for vent weaning yet -Pt would benefit from vent to mask at home however he has a CPAP machine and is noncompliant with it. -Check ABG Narcotic/benzo dependance -Pt takes 240mg OxyContin, 30mg oxycodone Q6PRN, 1mg of Ativan TID PRN, 2400mg of gabapentin daily. Influenza A -Tamiflu Severe sepsis with pneumonia -Vides cultures -Start vanco zosyn and await cultures. Narcotic/benzo OD -Pt takes 240mg OxyContin, 30mg oxycodone Q6PRN, 1mg of Ativan TID PRN, 2400mg of gabapentin daily. Wheel chair bound ARLEN PEGUERO DO Oct 16, 2018 04:33
[2018-10-16] MEDS ORDERED: ENOXAPARIN 30 MG/0.3 ML (LOVENOX) SYR SC SCH (04:45)
[2018-10-16] MEDS: MAGNESIUM 1 GM/100 ML IVPB 100 ML IV SCH (04:48)
[2018-10-16] MEDS: KCL 20 MEQ TAB (K-DUR) PO SCH (04:48)
[2018-10-16] MEDS: POTASSIUM CL 10MEQ/50ML IVPB 50 ML IV SCH (04:48)
[2018-10-16] MEDS ORDERED: ENOXAPARIN 40 MG/0.4 ML (LOVENOX) SYR ONE (05:47)
[2018-10-16] MEDS: methylPREDNISolone 125 MG (Solu-MEDROL) VIAL IVP SCH ×3 (05:53→21:46)
[2018-10-16] MEDS: NS IV 1000 ML 1,000 ML IV SCH ×3 (05:53→19:30)
[2018-10-16] MEDS: PIPERACILLIN/TAZOBACTAM (BULK) 4.5 GM in NS (IVPB) 100 ML IV SCH (06:00)
[2018-10-16] MEDS ORDERED: VANCOMYCIN 2000 MG/NS 500 ML IVPB IV SCH ×2 (06:00)
[2018-10-16] MEDS ORDERED: ENOXAPARIN 40 MG/0.4 ML (LOVENOX) SYR SC ONE (06:00)
--- NOTE | 2018-10-16 06:56 | NUR ---
LOVENOX DOSING: BASED ON PT CrCl 113 & BMI 42.4 DOSED LOVENOX 40 MG SQ BID
[2018-10-16] MEDS ORDERED: SUCCINYLCHOLINE INJ 100 MG/5 ML SYR INJ ONE (07:39)
[2018-10-16] MEDS ORDERED: MIDAZOLAM 5 MG/5 ML (VERSED) VIAL IJ ONE (07:39)
[2018-10-16] MEDS ORDERED: ETOMIDATE IV SOLN 20 MG/10 ML VIAL IV ONE (07:39)
[2018-10-16] MEDS ORDERED: fentaNYL INJECTION 100 MCG/2 ML AMP INJ ONE (07:39)
--- NOTE | 2018-10-16 08:25 | Progress Note-Hospitalist ---
Subjective HPI/CC On Admission Date Seen by Provider: Oct 16, 2018 Time Seen by Provider: 08:19 Pt is a 53yoCM known to me from previous admissions who presented to the ER in extremis due to repsiratory compromise. He is intubated and sedated and unable to provide me any history. His mother is at bedside who states symptoms started 3 days ago. He developed cough 2 days ago and today became short of breath. His mom gave him a breathing treatment but that did not help. She noticed he was struggling more to breath and decided to call 911. She did relay to the ER MANAGER PULMONARY that he had also taken an extra dose of his oxycodone today as well. On arrival he was in severe respiratory distress and was intubated emergently. Subjective/Events-last exam Pt intubated and sedated. No ROS possible. Mom at bedside and concerned about resumption of pain medications Focused Exam Lactate Level 10/15/18 14:30: Lactic Acid Level 1.51 10/15/18 17:24: Lactic Acid Level 1.31 Objective Exam Vital Signs Vital Signs Date Time Temp Pulse Resp B/P (MAP) Pulse Ox O2 Delivery O2 Flow Rate FiO2 10/16/18 14:00 100 24 132/69 (90) 91 Mechanical Ventilator 40.00 10/16/18 13:48 40 10/16/18 12:00 99.8 Capillary Refill : Greater Than 3 Seconds General Appearance: Chronically ill, Obese Neck: Other (central line in place) Respiratory: No Crackles; Decreased Breath Sounds; No Wheezing; Other ( intubated) Cardiovascular: Regular Rate, Rhythm, No Murmur, Normal Peripheral Pulses Gastrointestinal: Normal Bowel Sounds, Non Tender, Soft Genital/Rectal: Other (villalobos in place) Extremity: No Calf Tenderness, Other (right lower extremity edema at baseline per mom) Neurologic/Psychiatric: Other (sedated) Skin: Tattoos/Piercings, Other (scar consistent with skin graft on right lower extremity) Results/Procedures Lab Laboratory Tests 10/16/18 03:14 Patient resulted labs reviewed. Imaging: Reviewed Imaging Report Assessment/Plan Assessment and Plan Assess & Plan/Chief Complaint Acute Respiratory Failure Diagnosis/Problems Diagnosis/Problems (1) Acute respiratory failure Status: Acute Assessment & Plan: Maintain on Vent Propofol and Fentanyl for sedation Ativan prn Pulm consulted, appreciate recs Hypercapnia improving Will likely be on vent 2-3 more days Qualifiers: Respiratory failure complication: hypoxia and hypercapnia Qualified Codes: J96.01 - Acute respiratory failure with hypoxia; J96.02 - Acute respiratory failure with hypercapnia (2) Influenza Status: Acute Assessment & Plan: Influenza A positive Tamiflu (3) Diabetes mellitus Status: Chronic Assessment & Plan: SSI BS elevated this AM as anticipated Resume basal insulin Qualifiers: Diabetes mellitus type: type 2 Diabetes mellitus extermination supervisor insulin use: with extermination supervisor use Diabetes mellitus complication status: with unspecified complications Qualified Codes: E11.8 - Type 2 diabetes mellitus with unspecified complications; Z79.4 - prison (current) use of insulin (4) Thrombocytopenia Status: Chronic Assessment & Plan: Likely due to liver disease from Hep C Clinical Quality Measures DVT/VTE Risk/Contraindication: Risk Factor Score Per Nursin RFS Level Per Nursing on Admit: 4+=Very High SUSAN SOSA MD Oct 16, 2018 08:25
[2018-10-16] MEDS ORDERED: inSUlin DETERMIR 1 UNIT/0.01 ML (LEVEMIR) CHARGE PER UNIT SQ NR (08:30)
[2018-10-16] MEDS: PANTOPRAZOLE 40 MG (PROTONIX) VIAL IV SCH (08:45)
[2018-10-16] MEDS: OSELTAMIVIR 6 MG/ML (TAMIFLU) 60 ML BOT PO SCH ×2 (08:47→21:47)
[2018-10-16] MEDS ORDERED: inSUlin DETERMIR 1 UNIT/0.01 ML (LEVEMIR) CHARGE PER UNIT SQ SCH ×2 (09:00→21:00)
[2018-10-16] MEDS ORDERED: DULO60CA58 PO (09:00)
[2018-10-16] MEDS ORDERED: METO50TA15 PO (09:00)
[2018-10-16] MEDS ORDERED: ALPR0.5T7 PO (09:00)
--- NOTE | 2018-10-16 09:00 | NUR ---
Spoke with pt father who stated pt has already received flu vaccine fall 2017
--- NOTE | 2018-10-16 09:09 | Diagnostic Imaging Report ---
INDICATION: Ventilator. Comparison with 10/15/2018. FINDINGS: ET tube and NG tube remain in good position. There continues to be cardiomegaly. The lungs are well-aerated. There has been clearing of pulmonary venous congestive changes. There is mild perihilar infiltrate and/or atelectasis on the left. No pneumothorax or pleural effusion. IMPRESSION: 1. Satisfactory tube and line position. 2. No evidence of pulmonary venous congestion. 3. Mild perihilar infiltrate does appear present on the left. Dictated by: Dictated on workstation # [id number]
[2018-10-16] MEDS ORDERED: OMG1KC PO (10:32)
[2018-10-16] MEDS ORDERED: INSU100I29 SQ (10:32)
[2018-10-16] MEDS ORDERED: PRED5TAB PO (10:32)
[2018-10-16] MEDS ORDERED: NYST15PO2 TOP (10:32)
--- NOTE | 2018-10-16 10:33 | NUR ---
UNABLE TO SPEAK WITH THE PATIENT AT THIS TIME, I CALLED HIS MOTHER TO VERIFY MEDICATIONS BUT WAS UNABLE TO SPEAK WITH HER. I LEFT A MESSAGE WITH WHOEVER ANSWERED HER PHONE BUT HAVE NOT RECEIVED A CALL BACK YET AT THIS TIME. I UPDATED THE MED REC WITH THE EXT MED HX, I ALSO HAD A MED LIST FAXED OVER FROM THE [facility] IN [place]. THEIR LIST INCLUDED THE FOLLOWING MEDS THAT HAVE NOT BEEN FILLED RECENTLY SO I DID NOT INCLUDE THEM ON THE MED REC: GEMFIBROZIL 600MG BID (LAST FILLED #180 10-29-17 ACCORDING TO EXT MED HX) NORTRIPTYLINE 10MG 1-2 CAP HS (LAST FILLED #60 07-13-18 ACCORDING TO EXT MED HX) THE LIST STATES FUROSEMIDE 10MG DAILY (WE HAD THIS PRN FROM HIS LAST VISIT, IT WAS LAST FILLED #15 OF THE 20MG TABLET ON 05-27-18) I PUT THIS ON THE MED REC PRN. [facility] ALSO LISTED PROMETHAZINE DISCONTINUED ON HIS VISIT ON 10-01-18 HOWEVER IT WAS FILLED #20 10-05-18 SO I INCLUDED IT ON THE MED REC PRN. ALSO IN THE NOTES IT STATES THE PATIENT DECREASED HIS ALPRAZOLAM TO 1/2 TAB BID AND THEY WOULD RE WRITE THE PRESCRIPTION. THE PRESCRIPTION THAT WAS MOST RECENTLY FILLED WAS STILL FOR 60 TABS FOR A 30 DAY SUPPLY. I UPDATED THE DIRECTIONS ON THE MED REC TO STATE 0.5-1 TAB BID PRN.
--- NOTE | 2018-10-16 11:35 | NUR ---
Pastoral care visit.
--- NOTE | 2018-10-16 13:58 | Diagnostic Imaging Report ---
PATIENT HISTORY: ET tube advancement. TECHNIQUE: Single frontal view of the chest. COMPARISON: 10/16/2018 at 2:59 AM FINDINGS: Lung volumes are mildly low. There is mild interstitial prominence of the lungs bilaterally, overall aeration appears mildly improved. The cardiac silhouette is unchanged in size. An enteric tube crosses the [id number]. The tip of the right jugular line projects over the upper SVC. The endotracheal tube is 4.5 cm from the fabricio. No pleural effusion or pneumothorax is seen. IMPRESSION: 1. The endotracheal tube is 4.5 cm from the fabricio. 2. Mild interstitial opacities with overall improved aeration compared to the prior exam. Dictated by: Dictated on workstation # [id number]
[2018-10-16] MEDS: ENOXAPARIN 40 MG/0.4 ML (LOVENOX) SYR SC SCH (17:44)
[2018-10-17] VITALS (35 sets, daily range): BP systolic 113–169; BP diastolic 50–90
[2018-10-17] MEDS: inSUlin ASPART (NovoLOG) 1 UNIT/0.01 ML (CHARGE PER UNIT) SC SCH ×4 (00:05→17:42)
[2018-10-17] MEDS: fentaNYL INJECTION 100 MCG/2 ML AMP IV PRN ×4 (00:13→23:29)
[2018-10-17] MEDS ORDERED: meTOprolol 5 MG/5 ML (LOPRESSOR) VIAL ONE (00:57)
[2018-10-17] MEDS ORDERED: meTOprolol 5 MG/5 ML (LOPRESSOR) VIAL IV ONE (01:00)
[2018-10-17] MEDS: fentaNYL 1,250 MCG/NS 250 ML DRIP IV SCH ×4 (01:08→11:02)
[2018-10-17] MEDS: PROPOFOL DRIP (ICU) 100 ML IV SCH ×9 (01:13→19:59)
[2018-10-17] MEDS: RT-ALBUTEROL/IPRATROPIUM 3 ML (DUONEB) VIAL INH SCH ×5 (01:44→18:27)
[2018-10-17] MEDS: NS IV 1000 ML 1,000 ML IV SCH (02:32)
[2018-10-17] MEDS ORDERED: meTOprolol TARTRATE 50 MG (LOPRESSOR) TAB ONE (02:52)
[2018-10-17] MEDS ORDERED: HYDROmorphone (DILAUDID) 4 MG TAB ONE (02:52)
[2018-10-17] MEDS: meTOprolol TARTRATE 50 MG (LOPRESSOR) TAB GT SCH ×3 (03:00→22:48)
[2018-10-17] MEDS ORDERED: HYDROmorphone (DILAUDID) 2 MG TAB GT ONE (03:00)
[2018-10-17 03:15] LABS: BASOPHILS % (AUTO) 0 % (0-10); EOSINOPHILS % (AUTO) 0 % (0-10); HEMATOCRIT 37 % (40-54); HEMOGLOBIN 12.3 G/DL (13.3-17.7); LYMPHOCYTES # (AUTO) 0.2 X 10^3 (1.0-4.0); LYMPHOCYTES % (AUTO) 2 % (12-44); MEAN CORPUSCULAR HEMOGLOBIN 32 PG (25-34); MEAN CORPUSCULAR HGB CONC 33 G/DL (32-36); MEAN CORPUSCULAR VOLUME 97 FL (80-99); MEAN PLATELET VOLUME 10.8 FL (7.4-10.4); MONOCYTES # (AUTO) 0.4 X 10^3 (0.0-1.0); MONOCYTES % (AUTO) 5 % (0-12); NEUTROPHILS # (AUTO) 8.4 X 10^3 (1.8-7.8); NEUTROPHILS % (AUTO) 93 % (42-75); PLATELET COUNT 122 10^3/uL (130-400); RED CELL DISTRIBUTION WIDTH 15.1 % (10.0-14.5); WHITE BLOOD COUNT 9.1 10^3/uL (4.3-11.0)
[2018-10-17] MEDS ORDERED: HYDROmorphone (DILAUDID) 4 MG TAB GT ONE (03:15)
[2018-10-17 03:53] LABS: ABG BASE EXCESS -0.6 MMOL/L (-2.5-2.5); ABG OXYGEN SATURATION 96 % (94-100); ABG PCO2 49 MMHG (35-45); ABG PO2 78 MMHG (79-93); ABG TCO2 26.1 MMOL/L (21.0-31.0); ALLENS TEST POSITIVE; INSPIRED O2 40%; PATIENT TEMP 98.8; VENTILATOR YES
[2018-10-17 03:54] LABS: ABG PH 7.33 (7.37-7.43)
[2018-10-17 04:42] LABS: BUN/CREATININE RATIO 17; CALCIUM 9.5 MG/DL (8.5-10.1); CARBON DIOXIDE 21 MMOL/L (21-32); CHLORIDE 109 MMOL/L (98-107); CREATININE SERUM 0.94 MG/DL (0.60-1.30); GFR ESTIMATED > 60; GLUCOSE 301 MG/DL (70-105); MAGNESIUM 2.5 MG/DL (1.8-2.4); PHOSPHORUS 1.7 MG/DL (2.3-4.7); POTASSIUM 4.1 MMOL/L (3.6-5.0); SODIUM 141 MMOL/L (135-145)
[2018-10-17] MEDS ORDERED: TROUGH ORDER-PHARMACY XX NR (05:00)
--- NOTE | 2018-10-17 05:27 | Pulmonary Progress Note ---
Subjective Time Seen by a Provider: 06:30 Subjective/Events-last exam Pt sedated on vent. Mother is at bedside. Sepsis Event Evaluation Height, Weight, BMI Height: 6'0.00" Weight: 312lbs. 5.0oz. 141.505579ih; 41.1 BMI Method:Stated Focused Exam Lactate Level 10/15/18 14:30: Lactic Acid Level 1.51 10/15/18 17:24: Lactic Acid Level 1.31 Exam Exam Vital Signs Date Time Temp Pulse Resp B/P (MAP) Pulse Ox O2 Delivery O2 Flow Rate FiO2 10/17/18 04:00 95 Mechanical Ventilator 40 10/17/18 04:00 85 24 131/81 (98) 96 Mechanical Ventilator 40.00 10/17/18 03:44 97 24 94 40 10/17/18 03:00 110 24 148/86 (106) 94 Mechanical Ventilator 40.00 10/17/18 02:00 110 24 149/85 (106) 94 Mechanical Ventilator 40.00 10/17/18 01:44 102 26 94 40 10/17/18 01:13 103 10/17/18 01:13 103 10/17/18 01:00 134 10/17/18 01:00 134 28 159/83 (108) 93 Mechanical Ventilator 40.00 10/17/18 00:24 130 25 93 40 10/17/18 00:00 95 Mechanical Ventilator 40 10/17/18 00:00 115 29 169/81 (110) 95 Mechanical Ventilator 40.00 10/16/18 23:00 116 28 170/86 (114) 95 Mechanical Ventilator 40.00 10/16/18 22:36 101 27 95 40 10/16/18 22:00 103 26 155/84 (107) 95 Mechanical Ventilator 40.00 10/16/18 21:00 98 23 145/76 (99) 94 Mechanical Ventilator 40.00 10/16/18 20:41 99 10/16/18 20:40 99 10/16/18 20:35 89 24 96 40 10/16/18 20:00 95 Mechanical Ventilator 40 10/16/18 20:00 95 24 121/71 (88) 93 Mechanical Ventilator 40.00 10/16/18 19:00 89 24 128/76 (93) 95 Mechanical Ventilator 40.00 10/16/18 19:00 88 3/1/19 18:50 89 24 96 40 10/16/18 18:00 92 27 150/84 (106) 95 Mechanical Ventilator 40.00 10/16/18 17:00 96 26 146/81 (102) 93 Mechanical Ventilator 40.00 10/16/18 16:00 98.2 10/16/18 16:00 102 26 142/76 (98) 93 Mechanical Ventilator 40.00 10/16/18 16:00 92 Mechanical Ventilator 40 10/16/18 15:56 136/74 10/16/18 15:55 136/74 10/16/18 15:00 112 29 142/74 (96) 93 Mechanical Ventilator 40.00 10/16/18 14:00 100 24 132/69 (90) 91 Mechanical Ventilator 40.00 10/16/18 13:48 96 26 92 40 10/16/18 13:08 96 24 92 40 10/16/18 13:00 91 24 99/55 (70) 91 Mechanical Ventilator 40.00 10/16/18 13:00 98 10/16/18 12:00 98 22 109/57 (74) 92 Mechanical Ventilator 40.00 10/16/18 12:00 99.8 10/16/18 12:00 92 Mechanical Ventilator 40 10/16/18 11:24 111/59 10/16/18 11:18 111/59 10/16/18 11:00 105 20 112/54 (73) 91 Mechanical Ventilator 40.00 10/16/18 10:06 108 25 131/66 (87) 91 Mechanical Ventilator 40.00 10/16/18 09:49 97 32 90 40 10/16/18 09:00 104 26 135/67 (89) 90 Mechanical Ventilator 40.00 10/16/18 08:49 125/68 10/16/18 08:25 98 29 93 40 10/16/18 08:00 99.8 10/16/18 08:00 101 21 102/55 (71) 93 Mechanical Ventilator 40.00 10/16/18 08:00 92 Mechanical Ventilator 40 10/16/18 07:00 111 24 129/62 (84) 92 Mechanical Ventilator 40.00 10/16/18 07:00 102 10/16/18 06:26 80 26 94 40 10/16/18 06:20 120/62 10/16/18 06:00 97 18 87/49 (62) 95 Mechanical Ventilator 40.00 10/16/18 06:00 93 24 90/45 (60) 93 Mechanical Ventilator 40.00 I & O 10/17/18 07:00 Intake Total 2140 ml Output Total 2600 ml Balance -460 ml Height & Weight Height: 6'0.00" Weight: 312lbs. 5.0oz. 141.042504ax; 41.1 BMI Method:Stated General Appearance: Chronically ill, Obese, Other (sedated on vent) Neck: Normal Inspection, Non Tender, Other (central line in place) Respiratory: Respiratory Distress, Rhonci; No Wheezing; Other (intubated) Cardiovascular: Regular Rate, Rhythm, No Murmur, Normal Peripheral Pulses Capillary Refill: Greater Than 3 Seconds Gastrointestinal: normal bowel sounds, non tender, soft Extremity: No Calf Tenderness, Other (right lower extremity edema at baseline per mom) Neurologic/Psychiatric: Other (sedated) Skin: Other (scar consistent with skin graft on right lower extremity) Results Lab Laboratory Tests 10/15/18 14:30 10/16/18 03:14 10/17/18 03:00 Assessment/Plan Assessment/Plan Acute respiratory failure -Continue ventilator care -PT is not ready for vent weaning yet -Pt would benefit from vent to mask at home however he has a CPAP machine and is noncompliant with it. Narcotic/benzo dependance -Pt takes 240mg OxyContin, 30mg oxycodone Q6PRN, 1mg of Ativan TID PRN, 2400mg of gabapentin daily. Influenza A -Tamiflu Severe sepsis with pneumonia -Vides cultures - vanco zosyn and await cultures. Narcotic/benzo OD -Pt takes 240mg OxyContin, 30mg oxycodone Q6PRN, 1mg of Ativan TID PRN, 2400mg of gabapentin daily. Wheel chair bound ARLEN PEGUERO DO Oct 17, 2018 05:27
[2018-10-17] MEDS: ENOXAPARIN 40 MG/0.4 ML (LOVENOX) SYR SC SCH ×2 (06:18→17:42)
[2018-10-17] MEDS: methylPREDNISolone 125 MG (Solu-MEDROL) VIAL IVP SCH ×3 (06:19→22:49)
[2018-10-17] MEDS: MAGNESIUM 1 GM/100 ML IVPB 100 ML IV SCH (06:20)
[2018-10-17] MEDS: KCL 20 MEQ TAB (K-DUR) PO SCH (06:20)
[2018-10-17] MEDS: POTASSIUM CL 10MEQ/50ML IVPB 50 ML IV SCH (06:20)
--- NOTE | 2018-10-17 07:35 | Progress Note-Hospitalist ---
Subjective HPI/CC On Admission Date Seen by Provider: Oct 17, 2018 Time Seen by Provider: 07:30 Pt is a 53yoCM known to me from previous admissions who presented to the ER in extremis due to repsiratory compromise. He is intubated and sedated and unable to provide me any history. His mother is at bedside who states symptoms started 3 days ago. He developed cough 2 days ago and today became short of breath. His mom gave him a breathing treatment but that did not help. She noticed he was struggling more to breath and decided to call 911. She did relay to the ER MEASURER MACHINE that he had also taken an extra dose of his oxycodone today as well. On arrival he was in severe respiratory distress and was intubated emergently. Subjective/Events-last exam Pt is intubated and sedated. No ROS possible. Family at bedside state he's improving since gabapentin restarted. Focused Exam Lactate Level 10/15/18 14:30: Lactic Acid Level 1.51 10/15/18 17:24: Lactic Acid Level 1.31 Objective Exam Vital Signs Vital Signs Date Time Temp Pulse Resp B/P (MAP) Pulse Ox O2 Delivery O2 Flow Rate FiO2 10/17/18 06:29 77 24 94 40 10/17/18 06:00 131/78 (95) Mechanical Ventilator 40.00 10/16/18 16:00 98.2 Capillary Refill : Greater Than 3 Seconds General Appearance: Chronically ill, Obese, Other (sedated on vent) Neck: Other (central line in place) Respiratory: No Crackles; Respiratory Distress; No Rhonci, No Wheezing; Other ( intubated) Cardiovascular: Regular Rate, Rhythm, No Murmur, Normal Peripheral Pulses Gastrointestinal: Normal Bowel Sounds, Non Tender, Soft Genital/Rectal: Other (villalobos in place) Extremity: Non Tender, No Calf Tenderness Neurologic/Psychiatric: Other (sedated) Skin: Tattoos/Piercings, Other (scar consistent with skin graft on right lower extremity) Results/Procedures Lab Laboratory Tests 10/17/18 03:00 Patient resulted labs reviewed. Imaging: Reviewed Imaging Report Assessment/Plan Assessment and Plan Assess & Plan/Chief Complaint Acute Respiratory Failure Diagnosis/Problems Diagnosis/Problems (1) Acute respiratory failure Status: Acute Assessment & Plan: Maintain on Vent Propofol and Fentanyl for sedation Ativan prn Pulm consulted, appreciate recs Hypercapnia continue to improve Qualifiers: Respiratory failure complication: hypoxia and hypercapnia Qualified Codes: J96.01 - Acute respiratory failure with hypoxia; J96.02 - Acute respiratory failure with hypercapnia (2) Influenza Status: Acute Assessment & Plan: Influenza A positive Tamiflu (3) Diabetes mellitus Status: Chronic Assessment & Plan: SSI BS elevated this AM as anticipated Increase basal insulin SSI A1c ordered Qualifiers: Diabetes mellitus type: type 2 Diabetes mellitus mcc insulin use: with mcc use Diabetes mellitus complication status: with unspecified complications Qualified Codes: E11.8 - Type 2 diabetes mellitus with unspecified complications; Z79.4 - long term (current) use of insulin (4) Narcotic dependence Assessment & Plan: Pt's mom concerned about withdrawal potential Pt currently on Fentanyl gtt with fentanyl prn available and receiving oxycodone per OG plus additional Dilaudid ordered overnight- withdrawal unlikely Baseline use- 240mg OxyContin, 30mg oxycodone Q6PRN, 1mg of Ativan TID PRN, 2400mg of gabapentin daily Discussed with mom on admission the deleterious effects of opoids on respiratory drive and likely need for decreased dose (5) Thrombocytopenia Status: Chronic Assessment & Plan: Likely due to liver disease from Hep C Clinical Quality Measures DVT/VTE Risk/Contraindication: Risk Factor Score Per Nursin RFS Level Per Nursing on Admit: 4+=Very High SUSAN SOSA MD Oct 17, 2018 07:35
[2018-10-17] MEDS ORDERED: inSUlin DETERMIR 1 UNIT/0.01 ML (LEVEMIR) CHARGE PER UNIT SQ ONE (08:01)
[2018-10-17] MEDS: PANTOPRAZOLE 40 MG (PROTONIX) VIAL IV SCH (08:12)
[2018-10-17] MEDS: OSELTAMIVIR 6 MG/ML (TAMIFLU) 60 ML BOT PO SCH (08:12)
[2018-10-17] MEDS: inSUlin DETERMIR 1 UNIT/0.01 ML (LEVEMIR) CHARGE PER UNIT SQ SCH (08:13)
[2018-10-17] MEDS ORDERED: GABAPENTIN 400 MG (NEURONTIN) CAP ONE (08:19)
[2018-10-17] MEDS: 1/2 NS IV SOLUTION 1,000 ML IV SCH ×2 (08:21→17:43)
[2018-10-17] MEDS: GABAPENTIN 400 MG (NEURONTIN) CAP PO SCH ×2 (08:22→12:24)
[2018-10-17] MEDS ORDERED: NON-FORMULARY MEDICATION 1 EA EA (Gabapentin 800 MG) PO SCH (09:00)
--- NOTE | 2018-10-17 09:08 | Diagnostic Imaging Report ---
Indication: Shortness of breath. Comparison made with the prior study from 10/16/2018. Findings: Endotracheal tube position remains appropriate. Right internal jugular line is present. An enteric tube is in place. There are low lung volumes with some mild basilar atelectasis. Trace effusions cannot be excluded. Cardiac silhouette appears stable in size with some persistent central pulmonary vascular congestion. Impression: 1. Life support apparatus appears in appropriate position. 2. Low lung volumes with basilar atelectasis. Trace effusions cannot be excluded. There continues to be some central pulmonary vascular congestion. Dictated by: Dictated on workstation # [id number]
[2018-10-17] MEDS ORDERED: OSELTAMIVIR 6 MG/ML (TAMIFLU) 60 ML BOT GT SCH (21:00)
[2018-10-17] MEDS: GABAPENTIN 400 MG (NEURONTIN) CAP GT SCH (22:48)
[2018-10-17] MEDS: OSELTAMIVIR 6 MG/ML (TAMIFLU) 60 ML BOT GT SCH (22:48)
[2018-10-18] VITALS (25 sets, daily range): BP systolic 155–206; BP diastolic 87–110
[2018-10-18] MEDS: inSUlin ASPART (NovoLOG) 1 UNIT/0.01 ML (CHARGE PER UNIT) SC SCH ×5 (00:23→21:20)
[2018-10-18] MEDS: fentaNYL 1,250 MCG/NS 250 ML DRIP IV SCH ×4 (00:25→21:53)
[2018-10-18] MEDS: RT-ALBUTEROL/IPRATROPIUM 3 ML (DUONEB) VIAL INH SCH ×7 (00:26→21:44)
[2018-10-18] MEDS: PROPOFOL DRIP (ICU) 100 ML IV SCH ×3 (00:27→06:41)
--- OUTSIDE RECORDS SUMMARY | 2018-10-18 03:01 | XMS REPORT | Clinical Summary ---
Author Author [facility] Organization [facility] Address Unknown Phone Unavailable Care Team Providers Care Real Estate Broker Name Role Phone Juanpablo Forman MD Unavailable Louise Peters MD Unavailable Codey Suárez MD Unavailable Frantz Sidhu MD Unavailable Jenny Miller MD Unavailable Marisabel Blas DO Unavailable Kleber Jay MD Unavailable Johnny Brar MD Unavailable Unavailable Ivan Gomez MD Unavailable Berta Davis RN Unavailable Glenny Ocampo DO Unavailable Saravanan Kc MD Unavailable Simon España MD [id number] Gustavo Sandoval DO [id number] Yaritza López RN Unavailable Unavailable Gavin Schneider MD Unavailable Berta Hurst APRN Unavailable Sonya Johnson MD Unavailable Kel Wright MD PCP Source Comments Some departments are not documenting in the electronic medical record. If you do not see the information that you expected, contact Release of Information in the Health Information Management department at [phone] for further assistance in locating additional records.[facility] Allergies Comments Active Allergy Reactions Severity Noted Date After vomiting he feels well. Doxycycline SHORTNESS OF 02/25/2014 BREATH, NAUSEA AND VOMITING Reports it causes pain. Latex SEE COMMENTS 07/01/2013 Medications End Date Status Medication Sig Dispensed Refills Start Date Active insulin aspart (NOVOLOG) Inject into 0 100 unit/mL flexPEN area(s) as directed three times daily with meals. Sliding scale Active predniSONE (DELTASONE) 10 Take 10 mg by 0 mg tablet mouth daily. Active cholecalciferol (Vitamin Take 1,000 0 D3) (VITAMIN D-3) 1,000 Units by units tablet mouth daily. Active promethazine (PHENERGAN) Take 25 mg by 0 25 mg tablet mouth three times daily as needed. Active furosemide (LASIX) 20 mg Take 20-40 mg 0 tablet by mouth daily as needed. Takes as needed for edema. Active ALPRAZOLAM (XANAX PO) Take 1 mg by 0 mouth every 8 hours. Active gabapentin (NEURONTIN) Take 1 Tab by 270 Tab 1 800 mg tablet mouth three 6 times daily. Active Compression Socks, Large 1 pair 1 Each 0 misc compression 6 socks, large- wear during the day Active metoprolol XL (TOPROL XL) Take 50 mg by 0 50 mg extended release mouth daily. tablet Active cholecalciferol(+) Take 50,000 0 (Vitamin D3) 50,000 units Units by capsule mouth every 7 days. Active oxyCODONE SR (OXYCONTIN) Take 80 mg by 0 80 mg tablet mouth three times daily Active oxyCODONE (ROXICODONE, Take 30 mg by 0 OXY-IR) 30 mg tablet mouth four times daily Active insulin detemir(+) Inject 15 0 (LEVEMIR FLEXTOUCH) 100 Units under unit/mL (3 mL) injection the skin pen daily with dinner. Active Problems Problem Noted Date Rheumatoid arthritis 02/04/2017 Gouty arthropathy 05/01/2016 Ureteral stone 08/25/2014 Calculus of ureter 08/03/2014 Overview: 2 cm mid/distal ureteral stone - right side Perc tube in place. 08/25/14 Anterograde ureteroscopy and laser/stone extraction. Perc tube left in place - capped and anterograde stent. 09/07/14 stent and perc tube removed. L ast Assessment & Plan: Stable post anterograde ureteroscopy. 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 Last Filed Vital Signs Time Taken Vital Sign Reading 02/04/2017 9:47 AM CDT Blood Pressure 148/90 02/04/2017 9:47 AM CDT Pulse 73 06/20/2016 11:30 AM CDT Temperature 36.6 C (97.8 F) - Respiratory Rate - 06/20/2016 11:30 AM CDT Oxygen Saturation 95% - Inhaled Oxygen - Concentration 02/04/2017 9:47 AM CDT Weight 127 kg (280 lb) 02/04/2017 9:47 AM CDT Height 177.8 cm (5' 10") 02/04/2017 9:47 AM CDT Body Mass Index 40.18 Plan of Treatment Health Maintenance Due Date Last Done Comments PHYSICAL (COMPREHENSIVE) 1972 EXAM HIV SCREENING 1980 DTAP/TDAP VACCINES (1 - 1983 Tdap) COLORECTAL CANCER 2015 SCREENING SHINGLES RECOMBINANT 2015 VACCINE (1 of 2) INFLUENZA VACCINE 03/18/2018 Results Not on filefrom Last 3 Months Insurance Payer Benefit Subscriber ID Type Phone Address Plan / Group MEDICARE MEDICARE xxxxxxxxxx Medicare PART A AND B [facility] MEDICAID [facility] xxxxxxxxxxx Medicaid [place] Advance Directives Patient has advance care planning documents, and code status on file. For more information, please contact: [facility] [address] [place] [address] Date Inactivated Comments Code Status Date Activated 08/26/2014 12:13 PM Full Code 08/25/2014 5:00 PM Provider has discussed Code Status No, discussion not w/Patient or Family? necessary based on Dx 07/04/2014 5:55 PM Full Code 06/30/2014 6:00 PM Provider has discussed Code Status Yes w/Patient or Family? 02/28/2014 3:24 PM Full Code 02/24/2014 5:15 PM Provider has discussed Code Status Yes w/Patient or Family? 07/28/2013 2:05 PM Full Code 06/30/2013 8:27 AM Provider has discussed Code Status No, more discussion w/Patient or Family? needed 10/05/2010 1:02 PM Full Code 09/25/2010 5:17 PM Provider has discussed Code Status Yes w/Patient or Family?
--- OUTSIDE RECORDS SUMMARY | 2018-10-18 03:01 | XMS REPORT | Clinical Summary ---
Author Author [facility] Organization [facility] Address Unknown Phone Unavailable Care Team Providers Care Poultice Machine Operator Name Role Phone PCP Unavailable Allergies Not [...]
[2018-10-18] MEDS: 1/2 NS IV SOLUTION 1,000 ML IV SCH (03:48)
[2018-10-18 04:17] LABS: ABG BASE EXCESS -0.3 MMOL/L (-2.5-2.5); ABG OXYGEN SATURATION 95 % (94-100); ABG PCO2 41 MMHG (35-45); ABG PH 7.38 (7.37-7.43); ABG PO2 67 MMHG (79-93); ABG TCO2 25.5 MMOL/L (21.0-31.0)
[2018-10-18 04:17] LABS: BASOPHILS % (AUTO) 0 % (0-10); EOSINOPHILS % (AUTO) 0 % (0-10); HEMATOCRIT 37 % (40-54); HEMOGLOBIN 12.1 G/DL (13.3-17.7); LYMPHOCYTES # (AUTO) 0.3 X 10^3 (1.0-4.0); LYMPHOCYTES % (AUTO) 4 % (12-44); MEAN CORPUSCULAR HEMOGLOBIN 32 PG (25-34); MEAN CORPUSCULAR HGB CONC 33 G/DL (32-36); MEAN CORPUSCULAR VOLUME 97 FL (80-99); MEAN PLATELET VOLUME 10.6 FL (7.4-10.4); MONOCYTES # (AUTO) 0.3 X 10^3 (0.0-1.0); MONOCYTES % (AUTO) 4 % (0-12); NEUTROPHILS # (AUTO) 7.6 X 10^3 (1.8-7.8); NEUTROPHILS % (AUTO) 92 % (42-75); PLATELET COUNT 136 10^3/uL (130-400); RED CELL DISTRIBUTION WIDTH 15.1 % (10.0-14.5); WHITE BLOOD COUNT 8.3 10^3/uL (4.3-11.0)
[2018-10-18 04:19] LABS: ALLENS TEST POSITIVE; INSPIRED O2 30%; VENTILATOR YES
[2018-10-18 04:32] LABS: BUN/CREATININE RATIO 20; CALCIUM 8.9 MG/DL (8.5-10.1); CARBON DIOXIDE 21 MMOL/L (21-32); CHLORIDE 108 MMOL/L (98-107); CREATININE SERUM 0.81 MG/DL (0.60-1.30); GFR ESTIMATED > 60; GLUCOSE 217 MG/DL (70-105); MAGNESIUM 2.4 MG/DL (1.8-2.4); PHOSPHORUS 2.3 MG/DL (2.3-4.7); POTASSIUM 4.7 MMOL/L (3.6-5.0); SODIUM 138 MMOL/L (135-145)
--- NOTE | 2018-10-18 04:59 | Pulmonary Progress Note ---
Subjective Time Seen by a Provider: 04:55 Subjective/Events-last exam PT is sedated on vent. His mother is at bedside. Sepsis Event Evaluation Height, Weight, BMI Height: 6'0.00" Weight: 310lbs. 5.0oz. 140.575030ix; 41.1 BMI Method:Stated Focused Exam Lactate Level 10/15/18 14:30: Lactic Acid Level 1.51 10/15/18 17:24: Lactic Acid Level 1.31 Exam Exam Vital Signs Date Time Temp Pulse Resp B/P (MAP) Pulse Ox O2 Delivery O2 Flow Rate FiO2 10/18/18 04:00 57 23 162/89 (113) 95 Mechanical Ventilator 30.00 10/18/18 03:00 56 24 156/89 (111) 95 Mechanical Ventilator 30.00 10/18/18 02:00 59 24 162/89 (113) 95 Mechanical Ventilator 30.00 10/18/18 01:00 55 24 160/95 (116) 95 Mechanical Ventilator 30.00 10/18/18 01:00 57 10/18/18 00:29 150/94 10/18/18 00:27 150/94 10/18/18 00:00 71 24 94 30 10/18/18 00:00 65 24 156/91 (112) 94 Mechanical Ventilator 30.00 10/18/18 00:00 94 Mechanical Ventilator 30 10/17/18 23:00 82 24 156/87 (110) 93 Mechanical Ventilator 30.00 10/17/18 22:00 84 23 137/81 (99) 92 Mechanical Ventilator 30.00 10/17/18 21:00 86 26 93 30 10/17/18 21:00 87 24 141/81 (101) 92 Mechanical Ventilator 30.00 10/17/18 20:00 93 Mechanical Ventilator 30 10/17/18 20:00 89 24 137/80 (99) 92 Mechanical Ventilator 30.00 10/17/18 19:59 138/76 10/17/18 19:58 92 10/17/18 19:00 93 10/17/18 19:00 94 20 146/82 (103) 91 Mechanical Ventilator 30.00 10/17/18 18:26 80 24 92 30 10/17/18 18:02 80 23 161/89 (113) 93 Mechanical Ventilator 30.00 10/17/18 17:00 87 26 155/82 (106) 92 Mechanical Ventilator 30.00 10/17/18 16:36 80 24 92 30 10/17/18 16:00 81 24 129/78 (95) 92 Mechanical Ventilator 30.00 10/17/18 16:00 92 Mechanical Ventilator 30 10/17/18 15:22 125/76 10/17/18 15:21 125/76 10/17/18 15:00 85 23 132/78 (96) 92 Mechanical Ventilator 30.00 10/17/18 14:36 78 24 93 30 10/17/18 14:00 80 23 129/77 (94) 93 Mechanical Ventilator 30.00 10/17/18 13:00 81 10/17/18 13:00 81 23 151/88 (109) 93 Mechanical Ventilator 30.00 10/17/18 12:00 89 13 136/78 (97) 91 Mechanical Ventilator 30.00 10/17/18 12:00 92 Mechanical Ventilator 30 10/17/18 11:27 89 24 92 30 10/17/18 11:00 73 24 113/54 (73) 98 Mechanical Ventilator 30.00 10/17/18 10:41 131/81 10/17/18 10:40 131/81 10/17/18 10:35 76 24 95 30 10/17/18 10:00 74 23 135/81 (99) 93 Mechanical Ventilator 30.00 10/17/18 09:00 80 23 150/83 (105) 92 Mechanical Ventilator 30.00 10/17/18 08:39 84 24 94 40 10/17/18 08:00 89 24 136/76 (96) 94 Mechanical Ventilator 40.00 10/17/18 08:00 93 Mechanical Ventilator 40 10/17/18 08:00 97.9 10/17/18 07:00 93 10/17/18 07:00 93 23 145/78 (100) 93 Mechanical Ventilator 40.00 10/17/18 06:29 77 24 94 40 10/17/18 06:22 79 10/17/18 06:19 79 10/17/18 06:00 79 23 131/78 (95) 95 Mechanical Ventilator 40.00 10/17/18 05:00 80 23 128/79 (95) 95 Mechanical Ventilator 40.00 I & O 10/18/18 07:00 Intake Total 2575 ml Output Total 1025 ml Balance 1550 ml Height & Weight Height: 6'0.00" Weight: 310lbs. 5.0oz. 140.613343mr; 41.1 BMI Method:Stated General Appearance: Chronically ill, Obese, Other (sedated on vent) Neck: Other (central line in place) Respiratory: No Crackles; Respiratory Distress; No Rhonci, No Wheezing; Other ( intubated) Cardiovascular: Regular Rate, Rhythm, No Murmur, Normal Peripheral Pulses Capillary Refill: Greater Than 3 Seconds Gastrointestinal: normal bowel sounds, non tender, soft Extremity: Non Tender, No Calf Tenderness Neurologic/Psychiatric: Other (sedated) Skin: Tattoos/Piercings, Other (scar consistent with skin graft on right lower extremity) Results Lab Laboratory Tests 10/17/18 03:00 10/18/18 03:46 Assessment/Plan Assessment/Plan Acute respiratory failure -Continue ventilator care -Will start weaning attempts -Pt would benefit from vent to mask at home however he has a CPAP machine and is noncompliant with it. -Pt takes way to much sedating meds at home -give 60mg of lasix -Change ivf to ns at [facility] -Decreasing sedation meds and once propofol is off will start weaning -add precedex -Plan communicated with RT and RN Narcotic/benzo dependance -Pt takes 240mg OxyContin, 30mg oxycodone Q6PRN, 1mg of Ativan TID PRN, 2400mg of gabapentin daily. Influenza A -Tamiflu Severe sepsis with pneumonia -Vides cultures Narcotic/benzo OD -Pt takes 240mg OxyContin, 30mg oxycodone Q6PRN, 1mg of Ativan TID PRN, 2400mg of gabapentin daily. Wheel chair bound I discussed at length plan of care with patient's mom and answered all of her questions. RN states pt's mother has been very upset at times and occasionally interfering with patient care. With 2 RN's present I explained to patient's mother that during weaning process we may have her leave room. I also reminded her we have official visiting hours that we may need to enforce during weaning process. ARLEN PEGUERO DO Oct 18, 2018 04:59
[2018-10-18] MEDS ORDERED: FUROSEMIDE 40 MG/4 ML INJ (LASIX) IVP ONE (05:15)
[2018-10-18] MEDS ORDERED: DEXMEDETOMIDINE INJECTION 200 MCG in NS (IVPB) 50 ML IV SCH (05:15)
[2018-10-18] MEDS: NS IV 1000 ML 1,000 ML IV SCH (06:38)
[2018-10-18] MEDS: ENOXAPARIN 40 MG/0.4 ML (LOVENOX) SYR SC SCH ×2 (06:38→17:04)
[2018-10-18] MEDS: POTASSIUM CL 10MEQ/50ML IVPB 50 ML IV SCH ×4 (06:38→08:26)
[2018-10-18] MEDS: methylPREDNISolone 125 MG (Solu-MEDROL) VIAL IVP SCH ×3 (06:39→21:18)
[2018-10-18] MEDS: KCL 20 MEQ TAB (K-DUR) PO SCH (06:39)
[2018-10-18] MEDS: ENALAPRILAT 2.5 MG/2 ML (VASOTEC) VIAL IV SCH ×3 (06:39→17:04)
[2018-10-18] MEDS: MAGNESIUM 1 GM/100 ML IVPB 100 ML IV SCH (06:40)
[2018-10-18] MEDS: hydrALAZINE (APESOLINE) 20 MG/ML VIAL IV SCH ×4 (07:48→21:17)
[2018-10-18] MEDS ORDERED: DEXMEDETOMIDINE INJECTION 1,000 MCG in NS (IVPB) 250 ML IV SCH (08:00)
[2018-10-18 08:24] LABS: ABG BASE EXCESS -1.2 MMOL/L (-2.5-2.5); ABG OXYGEN SATURATION 93 % (94-100); ABG PCO2 42 MMHG (35-45); ABG PH 7.36 (7.37-7.43); ABG PO2 64 MMHG (79-93); ABG TCO2 24.7 MMOL/L (21.0-31.0)
[2018-10-18 08:26] LABS: ALLENS TEST YES-POS; INSPIRED O2 30%; PATIENT TEMP 98.9; VENTILATOR YES
[2018-10-18] MEDS: inSUlin DETERMIR 1 UNIT/0.01 ML (LEVEMIR) CHARGE PER UNIT SQ SCH (08:27)
[2018-10-18] MEDS: meTOprolol TARTRATE 50 MG (LOPRESSOR) TAB GT SCH (08:27)
[2018-10-18] MEDS: PANTOPRAZOLE 40 MG (PROTONIX) VIAL IV SCH (08:27)
[2018-10-18] MEDS: GABAPENTIN 400 MG (NEURONTIN) CAP GT SCH ×3 (08:27→21:19)
[2018-10-18] MEDS: OSELTAMIVIR 6 MG/ML (TAMIFLU) 60 ML BOT GT SCH (08:27)
--- NOTE | 2018-10-18 08:41 | Progress Note-Hospitalist ---
Subjective HPI/CC On Admission Date Seen by Provider: Oct 18, 2018 Time Seen by Provider: 08:38 Pt is a 53yoCM known to me from previous admissions who presented to the ER in extremis due to repsiratory compromise. He is intubated and sedated and unable to provide me any history. His mother is at bedside who states symptoms started 3 days ago. He developed cough 2 days ago and today became short of breath. His mom gave him a breathing treatment but that did not help. She noticed he was struggling more to breath and decided to call 911. She did relay to the ER CREATIVE/ART DIRECTOR that he had also taken an extra dose of his oxycodone today as well. On arrival he was in severe respiratory distress and was intubated emergently. Subjective/Events-last exam Pt intubated but on sedation vacation. Only concern per patient is that he wants his mom. RN states awaiting ABG results then will discuss with Dr Hall regarding extubation. Focused Exam Lactate Level 10/15/18 17:24: Lactic Acid Level 1.31 Objective Exam Vital Signs Vital Signs Date Time Temp Pulse Resp B/P (MAP) Pulse Ox O2 Delivery O2 Flow Rate FiO2 10/18/18 15:16 56 21 184/99 (127) 93 Vapotherm 50.00 15.00 10/18/18 14:38 100 10/18/18 12:11 99.7 Capillary Refill : Greater Than 3 Seconds General Appearance: Chronically ill, Obese, Other (sedated on vent) Neck: Other (central line in place) Respiratory: No Crackles; Respiratory Distress; No Rhonci, No Wheezing; Other ( intubated) Cardiovascular: Regular Rate, Rhythm, No Murmur, Normal Peripheral Pulses Gastrointestinal: Normal Bowel Sounds, Non Tender, Soft Genital/Rectal: Other (villalobos in place) Extremity: Non Tender, No Calf Tenderness Neurologic/Psychiatric: Alert, Other (responding appropriately to questions) Skin: Tattoos/Piercings, Other (scar consistent with skin graft on right lower extremity) Results/Procedures Lab Laboratory Tests 10/18/18 03:46 Patient resulted labs reviewed. Imaging: Reviewed Imaging Report Assessment/Plan Assessment and Plan Assess & Plan/Chief Complaint Acute Respiratory Failure Diagnosis/Problems Diagnosis/Problems (1) Acute respiratory failure Status: Acute Assessment & Plan: Undergoing SBT May extubate later today Continue Precedex Ativan prn and Fentanyl prn Pulm consulted, appreciate recs Qualifiers: Respiratory failure complication: hypoxia and hypercapnia Qualified Codes: J96.01 - Acute respiratory failure with hypoxia; J96.02 - Acute respiratory failure with hypercapnia (2) Influenza Status: Acute Assessment & Plan: Influenza A positive Tamiflu (3) Diabetes mellitus Status: Chronic Assessment & Plan: SSI BS improving Increase basal insulin SSI A1c ordered Qualifiers: Diabetes mellitus type: type 2 Diabetes mellitus detention insulin use: with detention use Diabetes mellitus complication status: with unspecified complications Qualified Codes: E11.8 - Type 2 diabetes mellitus with unspecified complications; Z79.4 - lobsterman (current) use of insulin (4) Essential (primary) hypertension Assessment & Plan: BP elevated this AM He is on home metoprolol and Vasotec IV and Hydralazine IV prn Will add nitro paste Has not received any benzos since 10/16 so hypertension may be associated with withdrawal Discussed with RN to give ativan as well to avoid benzo withdrawal (5) Narcotic dependence Assessment & Plan: Pt's mom concerned about withdrawal potential though given treatment currently with oxycodone, fentanyl pushes prn, and fentanyl gtt very unlikely as OME nearly equivalent Baseline use- 240mg OxyContin, 30mg oxycodone Q6PRN, 1mg of Ativan TID PRN, 2400mg of gabapentin daily Discussed with mom on admission the deleterious effects of opoids on respiratory drive and likely need for decreased dose (6) Thrombocytopenia Status: Chronic Assessment & Plan: Likely due to liver disease from Hep C Clinical Quality Measures DVT/VTE Risk/Contraindication: Risk Factor Score Per Nursin RFS Level Per Nursing on Admit: 4+=Very High SUSAN SOSA MD Oct 18, 2018 08:41
[2018-10-18] MEDS ORDERED: OXYCODONE HCL 80 MG PO SCH (08:45)
--- NOTE | 2018-10-18 08:50 | NUR ---
ABG results to Dr. Hall et order to extubate received
--- NOTE | 2018-10-18 09:00 | NUR ---
Pt extubated with Kyrie, RT. Pt placed on vapotherm at 30L et 100%, sats 90%. Pt A&O, able to verbalize
--- NOTE | 2018-10-18 09:15 | Diagnostic Imaging Report ---
Indication: Followup. Ventilated patient. Dyspnea. Comparison: 10/17/2018 Findings: Single frontal radiographic view of the chest was obtained and demonstrate indwelling endotracheal tube with tip below the clavicular heads and above the fabricio. Gastric tube tip is obscured. Cardiac silhouette and pulmonary vasculature stable. Lungs continue to show low inspiratory volumes, but otherwise appear to be clear. There is no large effusion or pneumothorax. Bony structures show no gross acute abnormalities. Impression: 1. Lines and tubes as above. 2. No adverse interval change. Dictated by: Dictated on workstation # [id number]
[2018-10-18] MEDS ORDERED: NITROGLYCERIN 2% OINT 1 GM UNIT DOSE PACKET TOP PRN (09:45)
[2018-10-18] MEDS ORDERED: ONDANSETRON 4 MG/2 ML (SDV) Z0FRAN ONE (09:58)
[2018-10-18] MEDS: oxyCODONE ER 40 MG (oxyCONTIN CR) TAB PO SCH ×2 (10:06→17:03)
[2018-10-18] MEDS: ONDANSETRON 4 MG/2 ML (SDV) Z0FRAN IVP PRN (10:09)
--- NOTE | 2018-10-18 10:15 | NUR ---
Dr. Mittal notified of continued HTN despite hydralazine et metoprolol administration. Nitro paste order received.
[2018-10-18] MEDS ORDERED: inSUlin ASPART (NovoLOG) 1 UNIT/0.01 ML (CHARGE PER UNIT) ONE (11:38)
[2018-10-18] MEDS ORDERED: IBUPROFEN SUSP 100MG/5ML (MOTRIN) UDC PO PRN (11:45)
[2018-10-18] MEDS: ENALAPRILAT 2.5 MG/2 ML (VASOTEC) VIAL IV PRN (13:27)
[2018-10-18] MEDS: LORazepam INJ 2 MG/ML (ATIVAN) VIAL IV PRN (13:27)
[2018-10-18] MEDS ORDERED: amLODIPine 10 MG (NORVASC) TAB PO NR (15:15)
[2018-10-18] MEDS: niCARdipine 50 MG/NS 250 ML IV DRIP IV SCH ×2 (17:14)
[2018-10-18] MEDS: meTOprolol TARTRATE 50 MG (LOPRESSOR) TAB PO SCH (21:19)
[2018-10-19] VITALS (11 sets, daily range): BP systolic 146–177; BP diastolic 85–94
[2018-10-19] MEDS: OSELTAMIVIR 6 MG/ML (TAMIFLU) 60 ML BOT PO SCH ×3 (01:12→20:40)
[2018-10-19] MEDS: oxyCODONE ER 40 MG (oxyCONTIN CR) TAB PO SCH ×3 (01:13→16:26)
[2018-10-19] MEDS: hydrALAZINE (APESOLINE) 20 MG/ML VIAL IV SCH ×6 (01:13→20:41)
[2018-10-19] MEDS: ENALAPRILAT 2.5 MG/2 ML (VASOTEC) VIAL IV SCH ×4 (01:13→17:38)
[2018-10-19] MEDS: RT-ALBUTEROL/IPRATROPIUM 3 ML (DUONEB) VIAL INH SCH ×7 (02:18→21:54)
[2018-10-19] MEDS: niCARdipine 50 MG/NS 250 ML IV DRIP IV SCH ×2 (03:20)
[2018-10-19 03:46] LABS: BASOPHILS % (AUTO) 0 % (0-10); EOSINOPHILS % (AUTO) 0 % (0-10); HEMATOCRIT 41 % (40-54); HEMOGLOBIN 13.1 G/DL (13.3-17.7); LYMPHOCYTES # (AUTO) 0.4 X 10^3 (1.0-4.0); LYMPHOCYTES % (AUTO) 4 % (12-44); MEAN CORPUSCULAR HEMOGLOBIN 31 PG (25-34); MEAN CORPUSCULAR HGB CONC 32 G/DL (32-36); MEAN CORPUSCULAR VOLUME 97 FL (80-99); MEAN PLATELET VOLUME 10.4 FL (7.4-10.4); MONOCYTES # (AUTO) 0.5 X 10^3 (0.0-1.0); MONOCYTES % (AUTO) 5 % (0-12); NEUTROPHILS # (AUTO) 8.3 X 10^3 (1.8-7.8); NEUTROPHILS % (AUTO) 91 % (42-75); PLATELET COUNT 114 10^3/uL (130-400); RED CELL DISTRIBUTION WIDTH 14.8 % (10.0-14.5); WHITE BLOOD COUNT 9.2 10^3/uL (4.3-11.0)
[2018-10-19 04:08] LABS: BUN/CREATININE RATIO 31; CALCIUM 9.7 MG/DL (8.5-10.1); CARBON DIOXIDE 27 MMOL/L (21-32); CHLORIDE 106 MMOL/L (98-107); CREATININE SERUM 0.83 MG/DL (0.60-1.30); GFR ESTIMATED > 60; GLUCOSE 183 MG/DL (70-105); MAGNESIUM 2.1 MG/DL (1.8-2.4); PHOSPHORUS 2.5 MG/DL (2.3-4.7); POTASSIUM 4.1 MMOL/L (3.6-5.0); SODIUM 142 MMOL/L (135-145)
[2018-10-19] MEDS: KCL 20 MEQ TAB (K-DUR) PO SCH (04:37)
[2018-10-19] MEDS: MAGNESIUM 1 GM/100 ML IVPB 100 ML IV SCH (04:37)
[2018-10-19] MEDS: POTASSIUM CL 10MEQ/50ML IVPB 50 ML IV SCH (04:37)
--- NOTE | 2018-10-19 05:52 | Pulmonary Progress Note ---
Subjective Time Seen by a Provider: 06:00 Subjective/Events-last exam Pt appears to be doing better. Sepsis Event Evaluation Height, Weight, BMI Height: 6'0.00" Weight: 315lbs. 5.0oz. 142.547899cd; 41.1 BMI Method:Stated Exam Exam Vital Signs Date Time Temp Pulse Resp B/P (MAP) Pulse Ox O2 Delivery O2 Flow Rate FiO2 10/19/18 05:00 78 15 159/86 (110) 96 Vapotherm 35.00 15.00 10/19/18 04:00 98 Vapotherm 15.00 45 10/19/18 04:00 78 13 146/92 (110) 96 Vapotherm 35.00 15.00 10/19/18 03:38 99.0 10/19/18 03:00 68 12 160/87 (111) 98 Vapotherm 35.00 15.00 10/19/18 02:18 100 Vapotherm 15.00 45 10/19/18 02:00 78 13 169/88 (115) 99 Vapotherm 45.00 15.00 10/19/18 01:00 68 10/19/18 01:00 64 17 162/89 (113) 100 Vapotherm 45.00 15.00 10/19/18 00:00 99.6 10/19/18 00:00 98 Vapotherm 15.00 45 10/19/18 00:00 60 14 159/89 (112) 100 Vapotherm 45.00 15.00 10/18/18 23:00 66 12 156/90 (112) 100 Vapotherm 45.00 15.00 10/18/18 22:03 76 21 156/93 (114) 98 Vapotherm 45.00 15.00 10/18/18 21:41 45.00 15.00 10/18/18 21:21 96 Vapotherm 15.00 50 10/18/18 21:00 93 21 156/89 (111) 99 Vapotherm 50.00 15.00 10/18/18 20:00 87 17 162/98 (119) 72 Vapotherm 50.00 15.00 10/18/18 20:00 97.9 10/18/18 20:00 98 Vapotherm 15.00 45 10/18/18 19:00 83 15 163/91 (115) 97 Vapotherm 50.00 15.00 10/18/18 19:00 86 10/18/18 18:00 87 16 162/89 (113) 97 Vapotherm 50.00 15.00 10/18/18 17:00 82 20 155/93 (113) 94 Vapotherm 50.00 15.00 10/18/18 16:00 71 20 173/87 (115) 95 Vapotherm 50.00 15.00 10/18/18 16:00 97 Vapotherm 15.00 50 10/18/18 15:16 56 21 184/99 (127) 93 Vapotherm 50.00 15.00 10/18/18 14:38 99 Vapotherm 20.00 100 10/18/18 14:00 56 23 180/102 (128) 100 Vapotherm 100.00 30.00 10/18/18 13:00 62 10/18/18 13:00 64 27 185/102 (129) 99 Vapotherm 100.00 30.00 10/18/18 12:11 99.7 10/18/18 12:00 57 27 189/104 (132) 98 Vapotherm 100.00 30.00 10/18/18 12:00 97 Vapotherm 30.00 100 10/18/18 11:00 62 29 199/103 (135) 97 Vapotherm 100.00 30.00 10/18/18 10:52 99 Vapotherm 30.00 100 10/18/18 10:00 57 33 206/108 (140) 99 Vapotherm 100.00 30.00 10/18/18 08:00 92 Mechanical Ventilator 30 10/18/18 08:00 106 36 179/104 (129) 93 Mechanical Ventilator 30.00 10/18/18 07:59 97.6 10/18/18 07:31 70 29 94 30 10/18/18 07:00 59 10/18/18 07:00 57 25 193/100 (131) 94 Mechanical Ventilator 30.00 10/18/18 06:41 60 10/18/18 06:00 57 23 184/110 (134) 94 Mechanical Ventilator 30.00 I & O 10/19/18 07:00 Intake Total 1737 ml Output Total 6400 ml Balance -4663 ml Height & Weight Height: 6'0.00" Weight: 315lbs. 5.0oz. 142.398577zp; 41.1 BMI Method:Stated General Appearance: Chronically ill, Obese, Other Neck: Other Respiratory: Decreased Breath Sounds, Other Cardiovascular: Regular Rate, Rhythm, No Murmur, Normal Peripheral Pulses Capillary Refill: Greater Than 3 Seconds Gastrointestinal: normal bowel sounds, non tender, soft Extremity: Non Tender, No Calf Tenderness Neurologic/Psychiatric: Alert, Other Skin: Tattoos/Piercings, Other Results Lab Laboratory Tests 10/18/18 03:46 10/19/18 03:30 Assessment/Plan Assessment/Plan Acute respiratory failure -Pt takes way to much sedating meds at home Narcotic/benzo dependance -Pt takes 240mg OxyContin, 30mg oxycodone Q6PRN, 1mg of Ativan TID PRN, 2400mg of gabapentin daily. Influenza A -Tamiflu Severe sepsis with pneumonia -Vides cultures Narcotic/benzo OD -Pt takes 240mg OxyContin, 30mg oxycodone Q6PRN, 1mg of Ativan TID PRN, 2400mg of gabapentin daily. Wheel chair bound ARLEN PEGUERO DO Oct 19, 2018 05:52
[2018-10-19] MEDS: methylPREDNISolone 125 MG (Solu-MEDROL) VIAL IVP SCH ×3 (06:18→20:40)
[2018-10-19] MEDS: inSUlin ASPART (NovoLOG) 1 UNIT/0.01 ML (CHARGE PER UNIT) SC SCH ×4 (06:20→20:40)
[2018-10-19] MEDS: ENOXAPARIN 40 MG/0.4 ML (LOVENOX) SYR SC SCH ×2 (06:20→17:38)
[2018-10-19] MEDS: NS IV 1000 ML 1,000 ML IV SCH (06:38)
--- NOTE | 2018-10-19 07:29 | Diagnostic Imaging Report ---
INDICATION: Status post extubation. Followup. COMPARISON: 10/18/2018. FINDINGS: Single frontal radiographic view of the chest was obtained and demonstrate interval extubation and removal of gastric tube. Right internal jugular central venous catheter remains in stable position. Cardiac silhouette and pulmonary vasculature are stable. Lungs are clear. There is no focal consolidation, large effusion, nor pneumothorax. Bony structures show no gross acute abnormalities. IMPRESSION: 1. Lines and tubes as above. 2. No adverse interval change. Dictated by: Dictated on workstation # [id number]
[2018-10-19] MEDS: GABAPENTIN 400 MG (NEURONTIN) CAP GT SCH ×3 (08:04→20:40)
[2018-10-19] MEDS: meTOprolol TARTRATE 50 MG (LOPRESSOR) TAB PO SCH ×2 (08:05→20:40)
[2018-10-19] MEDS: PANTOPRAZOLE 40 MG (PROTONIX) VIAL IV SCH (08:05)
[2018-10-19] MEDS: inSUlin DETERMIR 1 UNIT/0.01 ML (LEVEMIR) CHARGE PER UNIT SQ SCH (08:05)
[2018-10-19] MEDS: amLODIPine 10 MG (NORVASC) TAB PO SCH (08:05)
--- NOTE | 2018-10-19 09:54 | NUR ---
THIS RN RECEIVED REPORT FORM Terry MELLO RN AT THIS TIME.
--- NOTE | 2018-10-19 10:20 | NUR ---
PT TRANSFERRED TO ROOM 405 VIA BED. PT PERSONAL BELONGINGS SENT WITH PT TO NEW ROOM. REPORT GIVEN TO OSMEL RAMOS FOR CONTINUING CARE.
--- NOTE | 2018-10-19 10:20 | Progress Note-Hospitalist ---
Progress Note Progress Notes/Assess & Plan Date Seen 10/19/18 Time Seen by Provider: 10:15 Assessment & Plan The patient is a 53-year-old white male known to me for many years. He is presently wheelchair-bound. He receives generous oxycodone chronically. Apparently prior to admission he had taken extra doses of oxycodone. He became less alert and appeared to be in respiratory distress and was brought to the emergency room. There he was found to have a pH of 7.15 and a PCO2 greater than 100. He was intubated and placed on the ventilator. Blood gases have now normalized and he is extubated and ready for transfer to the medical floor. Physical exam: He is alert and oriented. He is morbidly obese and wheelchair bound. Lungs are clear to auscultation. CV is regular without murmur. Abdomen is quite obese. Extremities show no edema but some pigment suggesting venous stasis. Impression: Chronic narcotic dependency with acute overdosing. 2.hypercapnia and respiratory failure now resolved. 3.morbid obesity. 4.diabetes mellitus insulin-requiring. 5.thrombocytopenia. 6.non-ambulatory status. Plan: Adjustment of medications, transfer to floor, hope for early discharge. RAHUL OWEN MD Oct 19, 2018 10:20
--- NOTE | 2018-10-19 10:22 | NUR ---
PATIENT TO FORTH FLOOR AT THIS TIME VIA BED, ACCOMPANIED BY Terry MELLO RN.
--- NOTE | 2018-10-19 12:37 | NUR ---
PRIOR TO NOON B/P MEDICATIONS B/P WAS 166/94
--- NOTE | 2018-10-19 12:43 | NUR ---
THIS RN AGREES WITH PREVIOUS RN'S PHYSICAL ASSESSMENT. B/P CONT TO REMAIN ELEVATED. PATIENT IS ALERT AND ORIENTED AND REPORT NO ISSUES AT THIS TIME. THIS RN WILL CONT TO MONITOR THIS PATIENT THROUGHOUT THE REMAINDER OF THIS SHIFT.
--- NOTE | 2018-10-19 14:16 | Physician Query Clarification ---
PQ-Uncertain Diagnosis Admission/Discharge Admission Date: Oct 15, 2018 at 15:03 Discharge Date: The medical record reflects the following clinical scenario: History/Risk Factors: Acute Respiratory Failure Overdose-Oxycodone and Gabapentin Clinical Findings: T103.1, Pulse 93, Resp 30, WBC 9.1, Bands 5, Lactic acid 1.51, Treatment: IV Vancomycin HCI, IV Piperacillin Sod/Tazobactam Sod 4.5gm/Sodium Chloride Question: Is (SEVERE SEPSIS WITH PNEUMONIA) a clinically valid diagnosis? Severe sepsis with pneumonia was documented in the 10/15 consult-Dr. Hall in the medical record. Please document a response below. PHYSICIAN RESPONSE Diagnosis clinically valid: Yes, Conditon resolved In responding to this query, please exercise your independent professional judgment. The purpose of this communication is to more accurately reflect the complexity of your patients condition. The fact that a question is asked does not imply that any particular answer is desired or expected. Thank you for your timely response to this clarification. Requestors name: Rosamaria Billingsley [facility] Phone # ext [phone] or [phone] THIS PHYSICIAN QUERY FORM IS A PERMANENT PART OF THE MEDICAL RECORD ROSAMARIA BILLINGSLEY Oct 19, 2018 14:16 SUSAN SOSA MD Oct 22, 2018 10:58
--- NOTE | 2018-10-19 16:22 | NUR ---
prior to 1600 b/p medications pulse was 65 bpm and b/p was 211/95
--- NOTE | 2018-10-19 17:36 | NUR ---
prior to b/p medication pulse was 77 bpm, b/p was 177/96
--- NOTE | 2018-10-19 22:00 | NUR ---
[facility] NOTIFIED THIS RN THAT PATIENT WAS NAUSEATED. ZOFRAN WAS GIVEN BY ANOTHER RN. THIS RN WALKED INTO THE ROOM RIGHT AFTER ZOFRAN WAS GIVEN. PATIENT WAS FOUND SITTING IN BED IN HIGH FOWLERS DRY HEAVING. PATIENT STATES THAT HE IS NAUSEATED BUT THE ZOFRAN DOES SEEM TO BE HELPING. WILL CONTINUE TO MONITOR.
[2018-10-19] MEDS: ONDANSETRON 4 MG/2 ML (SDV) Z0FRAN IVP PRN (22:09)
--- NOTE | 2018-10-19 23:30 | NUR ---
PATIENTS MOTHER WAS WALKING DOWN THE HALLWAY AND STATED THAT THE PATIENT CALLED HER BECAUSE HE WAS SICK. THIS RN CALLED TO THE ROOM SHORTLY AFTER DUE TO MOTHER HAVING CONCERNS ABOUT PATIENTS WELL BEING. ASSESSMENT IS UNCHANGED. WILL CONTINUE TO MONITOR.
[2018-10-20] VITALS: BP 194/97
[2018-10-20] MEDS: hydrALAZINE (APESOLINE) 20 MG/ML VIAL IV SCH ×5 (00:50→16:09)
[2018-10-20] MEDS: ONDANSETRON 4 MG/2 ML (SDV) Z0FRAN IVP PRN (01:21)
--- NOTE | 2018-10-20 01:21 | NUR ---
PATIENT IS STILL COMPLAINING OF NAUSEA AND ZOFRAN IS GIVEN. SCHEDULED OXYCONTIN IS HELD DUE TO NAUSEA AND VOMITING.
[2018-10-20] MEDS: ENALAPRILAT 2.5 MG/2 ML (VASOTEC) VIAL IV SCH ×3 (01:55→12:01)
[2018-10-20] MEDS: ENALAPRILAT 2.5 MG/2 ML (VASOTEC) VIAL IV PRN (02:07)
[2018-10-20] MEDS: oxyCODONE ER 40 MG (oxyCONTIN CR) TAB PO SCH ×2 (02:16→07:45)
--- NOTE | 2018-10-20 02:40 | NUR ---
PATIENTS MOTHER CALLS THIS RN INTO THE ROOM TO TALK ABOUT SOME ISSUES SHE HAS WITH THE PATIENTS CARE. MOTHER BELIEVES THAT THE PATIENT IS GETTING SEPTIC FROM A [facility] BECAUSE THE PATIENT IS COMPLAINING OF "BURNING" WHEN HE URINATES. PATIENT DOES HAVE A CLANCY IN PLACE. MOTHER ALSO STATES THAT HIS BLOOD PRESSURE IS HIGH AND HE HAS NAUSEA AND VOMITING DUE TO SEPSIS. MOTHER STATES THAT SHE "KNOWS THE SYMPTOMS BECAUSE HE HAS BEEN SEPTIC BEFORE". MOTHER IS EDUCATED ON THE SIGNS AND SYMPTOMS OF SEPSIS, MAINLY THE REFLECTION SEPSIS WOULD HAVE IN THE VITAL SIGNS. PATIENT IS AFEBRILE, HEART RATE IS REGULAR AND IN THE 60'S AND PATIENT HAS HYPERTENSION. MOTHER DEMANDS THAT DR OWEN BE CALLED FOR A UA TO CHECK FOR SEPSIS. DR OWEN IS CALLED AT THIS TIME DUE TO PATIENT FAMILY REQUESTS. DR OWEN IS ADVISED OF ALL OF THE MOTHERS CONCERNS. DR OWEN ORDERED 4MG OF ZOFRAN IV ONCE. NO OTHER ORDERS RECEIVED. WILL CONTINUE TO MONITOR.
[2018-10-20] MEDS: RT-ALBUTEROL/IPRATROPIUM 3 ML (DUONEB) VIAL INH SCH ×4 (02:43→10:09)
[2018-10-20] MEDS ORDERED: ONDANSETRON 4 MG/2 ML (SDV) Z0FRAN IVP ONE (03:00)
--- NOTE | 2018-10-20 03:20 | NUR ---
THIS RN WAS CALLED TO THE ROOM TO GET THE PATIENT OFF THE BEDPAN. PATIENTS MOTHER IS AT BEDSIDE AND VISIBLY ANGRY. SHE WAS ADVISED THAT DR OWEN HAD ORDERED ANOTHER 4MG OF ZOFRAN FOR THE NAUSEA. MOTHER STATES THAT SHE THINKS THAT THE UA WASN'T ORDERED BECAUSE "DR OWEN IS TO [place] TO ANSWER THE PHONE AT NIGHT". MOTHER GOES ON TO STATE THAT THE PATIENT ISN'T GOING THROUGH WITHDRAWAL BECAUSE SHE HAD A SON AT [facility] FROM WITHDRAWAL AND STATES SHE KNOWS WHAT SHE IS TALKING ABOUT. THIS RN TRIES TO EDUCATE MOTHER ON WITHDRAWAL SYMPTOMS AND REASONING FOR NOT GIVING SCHEDULED DOSE. THE PRN DOSE HAD ALREADY BEEN GIVEN PRIOR TO PATIENT COMPLAINING OF NAUSEA AT AROUND 22:00. MOTHER STATES THAT EVEN IF HE WAS GOING THROUGH WITHDRAWAL, THE CURE FOR IT IS TO GIVE THE MEDICATIONS SO SHE DOESN'T AGREE THAT THE 01:30 DOSE SHOULD HAVE BEEN HELD. SHE GOES ON TO STATE THAT THIS RN SHOULD HAVE GIVEN THE LOWER DOSE PRN BUT HE WAS NOT DUE FOR IT AT THAT TIME. MOTHER ASKED THIS RN IF THE PATIENT STILL HAD ATIVAN AVAILABLE AND SHE WAS ADVISED THAT THE MEDICATION WAS DISCONTINUED WHEN HE LEFT ICU. MOTHER STATES THAT THE PATIENT'S BLOOD PRESSURE IS HIGH BECAUSE HE IS ANXIOUS AND SHE BELIEVED THAT WE SHOULD "GIVE ATIVAN TO TREAT HIS BLOOD PRESSURE". THIS RN ADVISES THAT WE ARE GIVING BLOOD PRESSURE MEDICATIONS TO TREAT HIS HIGH BLOOD PRESSURE. PATIENTS MOTHER ROLLS HER EYES AND SIGHS LOUDLY. PATIENTS MOTHER BELIEVES THAT THE CAREGIVERS "DONT LIKE WHAT THEY SAY" AND SHE DOESN'T BELIEVE THAT HEALTHCARE PROFESSIONALS SHOULD ASK THEM QUESTIONS TO GAIN HEALTH INFORMATION. MOTHER BELIEVES THAT SHE KNOWS WHAT MEDICATIONS PATIENT SHOULD BE TAKING AND IS ANGRY HE ISN'T GETTING THEM THE WAY SHE BELIEVES HE SHOULD. PATIENT REQUEST PRN DOSE OF PAIN MEDICATION AT THIS TIME, DOSE IS GIVEN.
[2018-10-20 04:00] VITALS: BP 185/4
[2018-10-20 06:03] LABS: BASOPHILS % (AUTO) 0 % (0-10); EOSINOPHILS % (AUTO) 0 % (0-10); HEMATOCRIT 43 % (40-54); LYMPHOCYTES # (AUTO) 0.5 X 10^3 (1.0-4.0); LYMPHOCYTES % (AUTO) 5 % (12-44); MEAN CORPUSCULAR HEMOGLOBIN 31 PG (25-34); MEAN CORPUSCULAR HGB CONC 33 G/DL (32-36); MEAN CORPUSCULAR VOLUME 96 FL (80-99); MEAN PLATELET VOLUME 10.6 FL (7.4-10.4); MONOCYTES # (AUTO) 0.8 X 10^3 (0.0-1.0); MONOCYTES % (AUTO) 8 % (0-12); NEUTROPHILS # (AUTO) 8.7 X 10^3 (1.8-7.8); NEUTROPHILS % (AUTO) 87 % (42-75); PLATELET COUNT 135 10^3/uL (130-400)
[2018-10-20] MEDS: ENOXAPARIN 40 MG/0.4 ML (LOVENOX) SYR SC SCH (06:05)
[2018-10-20] MEDS: inSUlin ASPART (NovoLOG) 1 UNIT/0.01 ML (CHARGE PER UNIT) SC SCH ×2 (06:05→12:03)
[2018-10-20] MEDS: methylPREDNISolone 125 MG (Solu-MEDROL) VIAL IVP SCH (06:05)
[2018-10-20 06:29] LABS: BUN/CREATININE RATIO 33; CALCIUM 10.2 MG/DL (8.5-10.1); CARBON DIOXIDE 27 MMOL/L (21-32); CHLORIDE 104 MMOL/L (98-107); CREATININE SERUM 0.85 MG/DL (0.60-1.30); GFR ESTIMATED > 60; GLUCOSE 239 MG/DL (70-105); MAGNESIUM 2.4 MG/DL (1.8-2.4); PHOSPHORUS 1.7 MG/DL (2.3-4.7); POTASSIUM 3.9 MMOL/L (3.6-5.0); SODIUM 143 MMOL/L (135-145)
[2018-10-20] MEDS: fentaNYL INJECTION 100 MCG/2 ML AMP IV PRN (07:41)
[2018-10-20] MEDS: inSUlin DETERMIR 1 UNIT/0.01 ML (LEVEMIR) CHARGE PER UNIT SQ SCH (07:43)
[2018-10-20] MEDS: OSELTAMIVIR 6 MG/ML (TAMIFLU) 60 ML BOT PO SCH (07:44)
[2018-10-20] MEDS: amLODIPine 10 MG (NORVASC) TAB PO SCH (07:45)
[2018-10-20] MEDS: meTOprolol TARTRATE 50 MG (LOPRESSOR) TAB PO SCH (07:45)
[2018-10-20] MEDS: GABAPENTIN 400 MG (NEURONTIN) CAP GT SCH ×2 (07:45→11:58)
[2018-10-20 08:00] VITALS: BP 181/92
--- NOTE | 2018-10-20 08:59 | Pulmonary Progress Note ---
Sepsis Event Evaluation Height, Weight, BMI Height: 6'0.00" Weight: 306lbs. 0.0oz. 138.762534au; 41.1 BMI Method:Stated Exam Exam Vital Signs Date Time Temp Pulse Resp B/P (MAP) Pulse Ox O2 Delivery O2 Flow Rate FiO2 10/20/18 07:00 59 10/20/18 04:00 97.4 73 20 185/4 (64) 95 High Flow N/C 6.00 6.00 10/20/18 03:54 94 High Flow N/C 6.00 10/20/18 01:00 78 10/20/18 00:00 97.8 64 20 194/97 (129) 94 High Flow N/C 5.00 10/19/18 21:00 High Flow N/C 6.00 10/19/18 20:35 97.1 82 20 177/85 (115) 94 Nasal Cannula 5.00 10/19/18 19:49 94 High Flow N/C 6.00 10/19/18 19:00 70 10/19/18 13:32 93 High Flow N/C 6.00 10/19/18 13:00 81 I & O 10/20/18 07:00 Intake Total 1190 ml Output Total 2450 ml Balance -1260 ml Height & Weight Height: 6'0.00" Weight: 306lbs. 0.0oz. 138.342339sz; 41.1 BMI Method:Stated General Appearance: Chronically ill, Obese, Other Neck: Other Respiratory: Decreased Breath Sounds, Other Cardiovascular: Regular Rate, Rhythm, No Murmur, Normal Peripheral Pulses Capillary Refill: Greater Than 3 Seconds Gastrointestinal: normal bowel sounds, non tender, soft Extremity: Non Tender, No Calf Tenderness Neurologic/Psychiatric: Alert, Other Skin: Tattoos/Piercings, Other Results Lab Laboratory Tests 10/19/18 03:30 10/20/18 05:55 Assessment/Plan Assessment/Plan Acute respiratory failure -Pt takes way to much sedating meds at home Narcotic/benzo dependance -Pt takes 240mg OxyContin, 30mg oxycodone Q6PRN, 1mg of Ativan TID PRN, 2400mg of gabapentin daily. Influenza A -Tamiflu Severe sepsis with pneumonia -Vides cultures Narcotic/benzo OD -Pt takes 240mg OxyContin, 30mg oxycodone Q6PRN, 1mg of Ativan TID PRN, 2400mg of gabapentin daily. Wheel chair bound ARLEN PEGUERO DO Oct 20, 2018 08:59
[2018-10-20] MEDS ORDERED: PANTOPRAZOLE 40 MG (PROTONIX) TAB PO SCH (09:00)
[2018-10-20] MEDS ORDERED: predniSONE 10 MG TAB PO SCH (09:00)
--- NOTE | 2018-10-20 11:22 | Progress Note-Hospitalist ---
Progress Note Progress Notes/Assess & Plan Date Seen 10/20/18 Time Seen by Provider: 11:19 Assessment & Plan The patient reports he is back to baseline and indeed this appears true. He will be discharged to his home. He has no complaints as to cough or shortness of breath. It is remembered that he is wheelchair bound and does not do any physical labors. Physical exam: He is alert oriented and pink. Lungs are clear to auscultation. CV is regular without murmur. Abdomen is obese. Extremities show evidence of venous stasis dermatitis. Impression: Respiratory failure. COPD. 3.influenza a. 4.history of rheumatoid arthritis and non-ambulatory status. 5.chronic opiate dependency. Plan: Discharge to home. See discharge sequence for meds and routines. RAHUL OWEN MD Oct 20, 2018 11:22
--- NOTE | 2018-10-20 11:27 | Discharge Inst-Simple/Standard ---
Discharge Inst-Standard Patient Instructions/Follow Up Plan of Care/Instructions/FU: Medications as listed on the discharge sequence. Usual diet and activities. Exercise care with regard to sedation and your pain medications. The medications can suppress your respiratory Center. In addition do not take the opioids and Ativan at the same time. Activity as Tolerated: Yes Discharge Diet: ADA Diet Other Inst to Patient See your physician as previously scheduled Planned Outpatient Orders/Ref. Pneu Vac Indicated: Yes RAHUL OWEN MD Oct 20, 2018 11:27
[2018-10-20 12:00] VITALS: BP 188/84
--- NOTE | 2018-10-20 12:10 | NUR ---
Important Message from Medicare presented/reviewed/signed and charted. Patient voiced no intention to appeal and deny any needs or further questions at this time. Patient states he lives with his mom and is supportive. Patient looking forward to going home.
--- NOTE | 2018-10-20 14:25 | NUR ---
Pastoral care visit, offered prayer and support.
[2018-10-20] MEDS ORDERED: fentaNYL INJECTION 100 MCG/2 ML AMP ONE (16:15)
[2018-10-20] MEDS ORDERED: fentaNYL INJECTION 100 MCG/2 ML AMP IVP ONE (16:30)
[2018-10-20 16:45] VITALS: BP 188/84
== END 2018-10-20 16:45 | disposition home or self-care (01) | DRG 917 ==
LOC: EDUNIT# 13:36 → ER 13:37 → ICU 15:03 → 4TH 10-19 10:22
PROVIDERS: ADMIT Family Medicine; ATTEND Family Medicine
PROC: 5A1945Z Respiratory Ventilation, 24-96 Consecutive Hours (ICD-10-PCS; principal; 2018-10-15)
DX: T40.2X1A Poisoning by other opioids, accidental (unintentional), initial encounter (principal); T42.4X1A Poisoning by benzodiazepines, accidental (unintentional), initial encounter; J96.01 Acute respiratory failure with hypoxia; J96.02 Acute respiratory failure with hypercapnia; A41.9 Sepsis, unspecified organism; R65.20 Severe sepsis without septic shock; J10.00 Influenza due to other identified influenza virus with unspecified type of pneumonia; J18.9 Pneumonia, unspecified organism; J44.0 Chronic obstructive pulmonary disease with (acute) lower respiratory infection; Z68.41 Body mass index [BMI] 40.0-44.9, adult; F11.20 Opioid dependence, uncomplicated; F13.20 Sedative, hypnotic or anxiolytic dependence, uncomplicated; I10 Essential (primary) hypertension; F17.210 Nicotine dependence, cigarettes, uncomplicated; E11.41 Type 2 diabetes mellitus with diabetic mononeuropathy; E11.51 Type 2 diabetes mellitus with diabetic peripheral angiopathy without gangrene; B19.20 Unspecified viral hepatitis C without hepatic coma; E66.01 Morbid (severe) obesity due to excess calories; D69.6 Thrombocytopenia, unspecified; K21.9 Gastro-esophageal reflux disease without esophagitis; M06.9 Rheumatoid arthritis, unspecified; M19.91 Primary osteoarthritis, unspecified site; G47.9 Sleep disorder, unspecified; F41.9 Anxiety disorder, unspecified; F32.9 Major depressive disorder, single episode, unspecified; I87.2 Venous insufficiency (chronic) (peripheral); G43.909 Migraine, unspecified, not intractable, without status migrainosus; Z79.4 Long term (current) use of insulin; Z91.19 Patient's noncompliance with other medical treatment and regimen; Z99.3 Dependence on wheelchair
CPT/HCPCS: 31500; 36415; 36556; 36600; 51702; 70450; 71045; 80048; 80053; 80306; 81000; 82805; 82962; 83036; 83605; 83735; 83880; 84100; 85007; 85025; 85027; 87040; 87070; 87081; 87205; 87449; 87804; 87899; 94003; 94640; 94760; 94799; 96361; 96365; 96375; 99291

== ENCOUNTER → 2018-11-12 | Outpatient (CLI) | payer MEDICARE, MEDICAID ==
[~2018-11-12] MED LIST changes: +ALPR0.5T7 PO; +DULO60CA58 PO; +INSU100I29 SQ; +METO50TA15 PO; +NYST15PO2 TOP; +OMG1KC PO
[2018-11-12 16:02] LABS: BASOPHILS % (AUTO) 0 % (0-10); EOSINOPHILS % (AUTO) 0 % (0-10); HEMATOCRIT 39 % (40-54); HEMOGLOBIN 12.9 G/DL (13.3-17.7); LYMPHOCYTES # (AUTO) 0.8 X 10^3 (1.0-4.0); LYMPHOCYTES % (AUTO) 7 % (12-44); MEAN CORPUSCULAR HEMOGLOBIN 32 PG (25-34); MEAN CORPUSCULAR HGB CONC 33 G/DL (32-36); MEAN CORPUSCULAR VOLUME 96 FL (80-99); MEAN PLATELET VOLUME 10.9 FL (7.4-10.4); MONOCYTES # (AUTO) 0.4 X 10^3 (0.0-1.0); MONOCYTES % (AUTO) 3 % (0-12); NEUTROPHILS # (AUTO) 11.2 X 10^3 (1.8-7.8); NEUTROPHILS % (AUTO) 90 % (42-75); PLATELET COUNT 178 10^3/uL (130-400); RED CELL DISTRIBUTION WIDTH 14.2 % (10.0-14.5); WHITE BLOOD COUNT 12.4 10^3/uL (4.3-11.0)
[2018-11-12 16:32] LABS: BAND NEUTROPHILS 0 %; BASOPHILS % (MANUAL) 0 %; EOSINOPHILS % (MANUAL) 0 %; LYMPHOCYTES % (MANUAL) 8 %; MONOCYTES % (MANUAL) 3 %; NEUTROPHILS % (MANUAL) 89 %; RBC MORPH NORMAL
--- NOTE | 2018-11-12 17:09 | Diagnostic Imaging Report ---
INDICATION: Cough x2 weeks EXAM: PA and lateral chest FINDINGS: Heart size and pulmonary vascularity are normal. The lungs are clear. There are no effusions or pneumothoraces. IMPRESSION: Negative chest. Dictated on workstation # [id number]
== END ==
LOC: RAD 15:46
PROVIDERS: ATTEND Nurse Practitioner Family
DX: R05 Cough (principal)
CPT/HCPCS: 36415; 71046; 85007; 85027

== ENCOUNTER → 2019-02-22 | Outpatient (CLI) | payer MEDICARE, MEDICAID ==
--- NOTE | 2019-02-22 14:22 | Diagnostic Imaging Report ---
INDICATION: Productive cough and weakness. TIME OF EXAM: 12:15 p.m. COMPARISON: Comparison is made with prior chest from 11/12/2018. FINDINGS: The heart size is stable. No definite infiltrates are seen. There is some hyperinflation, consistent with COPD. No effusion or pneumothorax is identified. IMPRESSION: COPD. No acute feature is detected. Dictated by: Dictated on workstation # [id number]
== END ==
LOC: RAD 12:01
PROVIDERS: ATTEND Pediatrics
DX: J44.9 Chronic obstructive pulmonary disease, unspecified (principal)
CPT/HCPCS: 71046

== ENCOUNTER → 2020-03-21 | Outpatient (CLI) | payer MEDICARE, MEDICAID ==
[~2020-03-21] MED LIST changes: -DULO60CA58 PO; +DULO60CA59 PO; -METO-370 PO; +METO50TA7 PO; +OXYC-527 PO
--- NOTE | 2020-03-21 15:18 | Diagnostic Imaging Report ---
INDICATION: High-risk medication use, long-term steroid use. COMPARISON: May 11, 2015. FINDINGS: AP Spine L1-L4: [BMD (g/cm2): 0.940] [T-Score: -2.5] [Z-Score: -3.0] [BMD Previous: 0.88] [BMD % Change: 5.9] LT Hip Neck: [BMD (g/cm2): 0.794] [T-Score: -2.1] [Z-Score: -1.9] LT Hip Total: [BMD (g/cm2):0.698] [T-Score:-2.8] [Z-Score: -2.9] [BMD Previous: 0.701] [BMD % Change: -0.4] RT Hip Neck: [BMD (g/cm2):0.573] [T-Score:-3.8] [Z-Score:-3.6] RT Hip Total: [BMD (g/cm2):0.652] [T-score:-3.1] [Z-Score:-3.2] [BMD Previous:0.671] [BMD % Change:-2.8] *Indicates significant change from prior examination based on 95% confidence level. World Health Organization criteria for BMD interpretation classify patients as Normal (T-score at or above -1.0), Osteopenic (T-score between -1.0 and -2.5) or Osteoporotic (T-score at or below -2.5). LIMITATIONS AND MODIFICATION: None. IMPRESSION: 1. Osteoporosis. 2. No significant change in bone mineral density since prior examination. 3. See below National Osteoporosis Foundation guidelines on when to potentially initiate pharmacologic therapy. Based on the National Osteoporosis Foundation Guidelines, pharmacologic treatment should be initiated in any of the following, unless clinical conditions suggest otherwise: * Any patient with prior fragility fracture of the hip or vertebrae. A spine fracture indicates 5X risk for subsequent spine fracture and 2X risk for subsequent hip fracture. * Osteoporosis (T-score <-2.5). * Postmenopausal women and men age 50 and older with low bone mass/osteopenia (T-score between -1.0 and -2.5) by DXA and 10-year major osteoporotic fracture greater than 20% or a 10-year probability of hip fracture greater than 3%. These fracture risks are supplied above in the FRAX score, if applicable. * Clinician judgement and/or patient preferences may indicate treatment for people with 10-year fracture probabilities above or below these levels. Dictated by: Dictated on workstation # [id number]
== END ==
LOC: RAD 13:47
PROVIDERS: ATTEND Family Medicine
DX: M81.0 Age-related osteoporosis without current pathological fracture (principal); Z79.52 Long term (current) use of systemic steroids; Z79.899 Other long term (current) drug therapy
CPT/HCPCS: 77080

== ENCOUNTER 2020-11-26 17:42 | Emergency (ER) | payer MEDICARE, MEDICAID ==
[~2020-11-26] VITALS: Ht 177.8 cm; Wt 136.1 kg
[~2020-11-26 17:42] MED LIST changes: +ALEN70TA80 PO; +AMLO-251 PO; -CLIN300C11 PO; +CLIN300C12 PO; +GABA-486 PO; +HYDR25TA4 PO; +INSU100I48 SQ; +LISI10TA25 PO; +LISI20TA26 PO; +MOME13HF2 INH; -POTA8TAB53 PO; +POTA8TAB54 PO
--- NOTE | 2020-11-26 18:41 | ED General ---
General Chief Complaint: Cardiac/General Problems Stated Complaint: HIGH AND LOW BP Nursing Triage Note: PT TO RM 5 WITH COMPLAINT OF FLUCTUATING BLOOD PRESSURE, WEAKNESS, TINGLING IN FACE AND LEFT ARM. STATES WHEN EPISODE STARTED, BP DROPPED TO 90s. PT STATES HE HAS HX OF HTN. DENIES CP. FAMILY MEMBER AT BEDSIDE WOULD LIEK FOR PT TO HAVE EKG. Nursing Sepsis Screen: No Definite Risk Source of Information: Patient Exam Limitations: No Limitations History of Present Illness Date Seen by Provider: Nov 26, 2020 Time Seen by Provider: 18:17 Initial Comments Patient presents to the ER by private conveyance with his mom and chief complaint that he since yesterday has been having some labile blood pressures that have gone high over 200 systolic and low down to 90 on both arms. He is fairly bedbound related to a neuropathy and cared for by Dr. Farnsworth for primary care. No history of heart disease. He said he was having an episode that started about 1600 today where he felt his vision narrowing his face tingling in his left arm had some throbbing pain and he felt like he was going to pass out. He did not pass out. He was not having any chest pain but having some mild shortness of air. He does not have any lung history although he does smoke 2 to 3 cigarettes/day. He has insulin-dependent diabetes and hypertension on lisinopril and metoprolol. The patient has had to alter his dose of metoprolol several times over the past several weeks related to tachycardias and bradycardia. He has an appointment with a boiler or engine operator, Dr. Hyman next month. At first he thought his episode was maybe an anxiety attack but then he became worried about his heart since his heart rate has been unusual and his blood pressure has been unusual which prompted him to think about the possibility of a urinary tract infection because he has had labile blood pressure with bladder infections in the past. He has multiple odd neurologic symptoms across his whole body so he states it is difficult for him to know what is just his neuropathy and what is something else. He is not on blood thinners. He denies a history of hyperlipidemia or primary coronary disease. He has noticed increased swelling in all 4 extremities so he took an extra dose of Lasix today. Mononeuritis multiplex, rheumatoid arthritis, COPD, hepatitis C, essential p rimary hypertension, diabetes mellitus type 2. Allergies and Home Medications Allergies Coded Allergies: hydrocodone (Verified Allergy, Unknown, TAKES OXYCODONE AT HOME, 05/05/16) STATES IS NOT ALLERGIC TO THIS MED latex (Verified Allergy, Unknown, 05/05/16) Home Medications Albuterol Sulfate 8.5 Gm Hfa.aer.ad, 2 PUFF IH QID PRN for SHORTNESS OF BREATH, (Reported) Alendronate Sodium 70 Mg Tablet, 70 MG PO SUN, (Reported) Alprazolam 1 Mg Tablet, 1 MG PO BID PRN for ANXIETY, (Reported) Amlodipine Besylate 10 Mg Tablet, 10 MG PO DAILY Prescribed by: MATILDA CRAWFORD on 09/20/20 115 Amoxicillin/Potassium Clav 1 Each Tablet, 1 EACH PO BID Prescribed by: MATILDA CRAWFORD on 09/20/20 115 Duloxetine HCl 60 Mg Capsule.dr, 60 MG PO DAILY, (Reported) Furosemide 20 Mg Tablet, 20 MG PO DAILY PRN for FLUID RETENTION, (Reported) Gabapentin 800 Mg Tablet, 800 MG PO TID, (Reported) TAKES 800MG AND 100MG TO EQUAL 900MG FOR EACH DOSE Gabapentin 100 Mg Capsule, 100 MG PO Q8H, (Reported) TAKES 100MG +800MG TO EQUAL 900MG FOR EACH DOSE Hydrochlorothiazide 25 Mg Tablet, 25 MG PO DAILY Prescribed by: MATILDA CRAWFORD on 09/20/20 1152 Insulin Detemir 100 Unit/1 Ml Insuln.pen, 40 UNIT SQ HS, (Reported) Insulin Lispro 100 Unit/1 Ml Insuln.pen, UNITS SQ AC, (Reported) USES PER SLIDING SCALE Lisinopril 20 Mg Tablet, 40 MG PO DAILY Prescribed by: MATILDA CRAWFORD on 09/20/20 1152 Mometasone/Formoterol 13 Gm Hfa.aer.ad, 1 PUFF INH BID, (Reported) Oxycodone HCl 30 Mg Tablet, 30 MG PO Q4 -6H PRN for BREAKTHROUGH PAIN, (Reported) Oxycodone HCl 80 Mg Tab.er.12h, 80 MG PO Q8H, (Reported) Prednisone 20 Mg Tab, 20 MG PO DAILY, (Reported) Promethazine HCl 25 Mg Tablet, 25 MG PO BID PRN for NAUSEA/VOMITING-2ND LINE, (Reported) Patient Home Medication List Home Medication List Reviewed: Yes Review of Systems Review of Systems Constitutional: No chills, No fever, No malaise EENTM: No ear discharge, No ear pain Respiratory: No cough; short of breath Cardiovascular: No chest pain, No Hx of Intervention, No palpitations; other (Heart racing this afternoon) Gastrointestinal: No abdominal pain, No nausea, No vomiting Genitourinary: No discharge, No dysuria Musculoskeletal: No back pain, No joint pain All Other Systems Reviewed Negative Unless Noted: Yes Past Ezmjqyj-Unxinn-Ncscvu Hx Patient Social History Alcohol Use: Denies Use Drug of Choice: History of THC many years ago, reports maybe one time IV substance use Smoking Status: Current Everyday Smoker Type Used: Cigarettes Former Smoker, Quit: Mar 06, 2016 2nd Hand Smoke Exposure: No Recent Infectious Disease Expo: No Recent Hopitalizations: No Immunizations Up To Date Tetanus Booster (TDap): Unknown PED Vaccines UTD: Yes Date of Pneumonia Vaccine: Nov 12, 2012 Seasonal Allergies Seasonal Allergies: No Past Medical History Surgeries: Yes Abdominal, Cardiac, Orthopedic Respiratory: Yes Pneumonia, COPD Currently Using CPAP: Yes Currently Using BIPAP: Yes Cardiac: Yes Chronic Edema/Swelling, Hypertension, Peripheral Vascular Neurological: Yes (MONO NEURITIS; NEUROPATHY--WHEELCHAIR BOUND) Headaches /Migraines, Neuropathy Reproductive Disorders: No Sexually Transmitted Disease: No HIV/AIDS: No Genitourinary: Yes Bladder Infection, Kidney Stones, Renal Failure, UTI-Chronic Gastrointestinal: Yes (HEPATITIS C--NO TREATMENT. BILARY STENT) Gastroesophageal Reflux, Liver Disease/Jaundice, Hepatitis, Gall Bladder Disease Musculoskeletal: Yes Degenerate Disk Disease, Arthritis, Rheumatoid Arthritis, Chronic Back Pain Endocrine: Yes (MORBID OBESITY; ELEVATED URIC ACID) Diabetes, Insulin dep HEENT: No Loss of Vision: Denies Hearing Impairment: Denies Cancer: No Psychosocial: Yes Sleep Difficulties, Anxiety, Depression Integumentary: Yes Blood Disorders: No Family Medical History Alcoholism 03 FATHER Diabetes mellitus 03 FATHER Family history: Allergy 03 MOTHER Family history: Asthma 03 MOTHER Family history: Hypertension 03 FATHER 03 MOTHER No Pertinent Family Hx Physical Exam Vital Signs Vital Signs - First Documented 11/26/20 17:59 Pulse 67 Resp 13 B/P (MAP) 189/94 (125) Pulse Ox 94 O2 Delivery Room Air Capillary Refill : Less Than 3 Seconds Height, Weight, BMI Height: 6'0.00" Weight: 306lbs. 0.0oz. [id number]; 43.00 BMI Method:Stated General Appearance: Anxious, Chronically ill, Obese Eyes: Bilateral Eye Normal Inspection, Bilateral Eye PERRL, Bilateral Eye EOMI HEENT: PERRL/EOMI, Pharynx Normal, Moist Mucous Membranes Neck: Full Range of Motion, Normal Inspection Respiratory: Lungs Clear, Normal Breath Sounds, No Accessory Muscle Use, No Respiratory Distress Cardiovascular: Regular Rate, Rhythm, No Murmur, Normal Peripheral Pulses, Other (1+ edema bilateral lower extremities) Gastrointestinal: Normal Bowel Sounds, No Organomegaly, Non Tender, Soft Extremity: Normal Capillary Refill, Non Tender, Other (No calf swelling, tenderness, erythema. Healed skin graft scars right lower extremity.) Neurologic/Psychiatric: Alert, Oriented x3, Other (Muscle atrophy all 4 extremities chronic) Skin: Normal Color, Warm/Dry Procedures/Interventions Date of ETT Placement: Oct 15, 2018 Time of ETT Placement: 1350 Progress/Results/Core Measures Suspected Sepsis Recent Fever Within 48 Hours: No Infection Criteria Present: None New/Unexplained Altered Menta: No Sepsis Screen: No Definite Risk SIRS Temperature: Pulse: 67 Respiratory Rate: 13 Laboratory Tests 11/26/20 18:47: White Blood Count 10.3 Blood Pressure 189 /94 Mean: 125 Laboratory Tests 11/26/20 18:47: Creatinine 0.95, INR Comment 0.9, Platelet Count 206, Total Bilirubin 0.4 Results/Orders Lab Results Laboratory Tests Test 11/26/20 18:47 11/26/20 20:40 Range/Units White Blood Count 10.3 4.3-11.0 10^3/uL Red Blood Count 4.51 4.30-5.52 10^6/uL Hemoglobin 13.9 13.3-17.7 g/dL Hematocrit 43 40-54 % Mean Corpuscular Volume 95 80-99 fL Mean Corpuscular Hemoglobin 31 25-34 pg Mean Corpuscular Hemoglobin Concent 33 32-36 g/dL Red Cell Distribution Width 13.7 10.0-14.5 % Platelet Count 206 130-400 10^3/uL Mean Platelet Volume 10.7 9.0-12.2 fL Immature Granulocyte % (Auto) 1 % Neutrophils (%) (Auto) 89 H 42-75 % Lymphocytes (%) (Auto) 7 L 12-44 % Monocytes (%) (Auto) 3 0-12 % Eosinophils (%) (Auto) 0 0-10 % Basophils (%) (Auto) 0 0-10 % Neutrophils # (Auto) 9.2 H 1.8-7.8 10^3/uL Lymphocytes # (Auto) 0.7 L 1.0-4.0 10^3/uL Monocytes # (Auto) 0.3 0.0-1.0 10^3/uL Eosinophils # (Auto) 0.0 0.0-0.3 10^3/uL Basophils # (Auto) 0.0 0.0-0.1 10^3/uL Immature Granulocyte # (Auto) 0.1 0.0-0.1 10^3/uL Neutrophils % (Manual) 87 % Lymphocytes % (Manual) 6 % Monocytes % (Manual) 7 % Blood Morphology Comment NORMAL Prothrombin Time 12.3 12.2-14.7 SEC INR Comment 0.9 0.8-1.4 Activated Partial Thromboplast Time 25 24-35 SEC D-Dimer 0.56 H 0.00-0.49 UG/ML Urine Color YELLOW Urine Clarity CLEAR Urine pH 5.0 5-9 Urine Specific Corinne 1.015 L 1.016-1.022 Urine Protein NEGATIVE NEGATIVE Urine Glucose (UA) NEGATIVE NEGATIVE Urine Ketones NEGATIVE NEGATIVE Urine Nitrite NEGATIVE NEGATIVE Urine Bilirubin NEGATIVE NEGATIVE Urine Urobilinogen 0.2 < = 1.0 MG/DL Urine Leukocyte Esterase NEGATIVE NEGATIVE Urine RBC (Auto) NEGATIVE NEGATIVE Urine RBC NONE /HPF Urine WBC NONE /HPF Urine Squamous Epithelial Cells NONE /HPF Urine Renal Epithelial Cells NONE /HPF Urine Crystals NONE /LPF Urine Bacteria NEGATIVE /HPF Urine Casts NONE /LPF Urine Mucus NEGATIVE /LPF Urine Culture Indicated NO Sodium Level 136 135-145 MMOL/L Potassium Level 5.4 H 3.6-5.0 MMOL/L Chloride Level 101 98-107 MMOL/L Carbon Dioxide Level 23 21-32 MMOL/L Anion Gap 12 5-14 MMOL/L Blood Urea Nitrogen 11 7-18 MG/DL Creatinine 0.95 0.60-1.30 MG/DL Estimat Glomerular Filtration Rate > 60 BUN/Creatinine Ratio 12 Glucose Level 221 H 70-105 MG/DL Calcium Level 10.5 H 8.5-10.1 MG/DL Corrected Calcium 10.8 H 8.5-10.1 MG/DL Magnesium Level 1.6 1.6-2.4 MG/DL Total Bilirubin 0.4 0.1-1.0 MG/DL Aspartate Amino Transf (AST/SGOT) 28 5-34 U/L Alanine Aminotransferase (ALT/SGPT) 32 0-55 U/L Alkaline Phosphatase 70 40-136 U/L Myoglobin 43.4 10.0-92.0 NG/ML Troponin I < 0.028 < 0.028 <0.028 NG/ML C-Reactive Protein High Sensitivity 0.46 0.00-0.50 MG/DL B-Type Natriuretic Peptide 56.5 <100.0 PG/ML Total Protein 6.4 6.4-8.2 GM/DL Albumin 3.6 3.2-4.5 GM/DL Urine Opiates Screen NEGATIVE NEGATIVE Urine Oxycodone Screen POSITIVE H NEGATIVE Urine Methadone Screen NEGATIVE NEGATIVE Urine Propoxyphene Screen NEGATIVE NEGATIVE Urine Barbiturates Screen NEGATIVE NEGATIVE Ur Tricyclic Antidepressants Screen NEGATIVE NEGATIVE Urine Phencyclidine Screen NEGATIVE NEGATIVE Urine Amphetamines Screen NEGATIVE NEGATIVE Urine Methamphetamines Screen NEGATIVE NEGATIVE Urine Benzodiazepines Screen POSITIVE H NEGATIVE Urine Cocaine Screen NEGATIVE NEGATIVE Urine Cannabinoids Screen POSITIVE H NEGATIVE My Orders Orders - LALI GUTIERREZ Cbc With Automated Diff (11/26/20 18:34) Magnesium (11/26/20 18:34) Chest 1 View, Ap/Pa Only (11/26/20 18:34) Ekg Tracing (11/26/20 18:34) Comprehensive Metabolic Panel (11/26/20 18:34) Myoglobin Serum (11/26/20 18:34) Protime With Inr (11/26/20 18:34) Partial Thromboplastin Time (11/26/20 18:34) O2 (11/26/20 18:34) Monitor-Rhythm Ecg Trace Only (11/26/20 18:34) Lipid Panel (11/27/20 06:00) Ed Iv/Invasive Line Start (11/26/20 18:34) BNP (11/26/20 18:34) Troponin I (11/26/20 18:34) Aspirin Chewable Tablet (Baby Aspirin Ch (11/26/20 18:45) Ua Culture If Indicated (11/26/20 18:34) Drug Screen Stat (Urine) (11/26/20 18:34) Fibrin Degradation Products (11/26/20 18:46) Hs C Reactive Protein (11/26/20 18:46) Manual Differential (11/26/20 18:47) Troponin I (11/26/20 20:45) Medications Given in ED Current Medications Medications Dose Ordered Sig/Lashawn Route Start Time Stop Time Status Last Admin Dose Admin Aspirin 324 mg ONCE ONCE PO 11/26/20 18:45 11/26/20 18:46 DC 11/26/20 18:46 324 MG Vital Signs/I&O 11/26/20 17:59 Pulse 67 Resp 13 B/P (MAP) 189/94 (125) Pulse Ox 94 O2 Delivery Room Air Capillary Refill : Less Than 3 Seconds Blood Pressure Mean: 125 Progress Note #1: Time: 18:42 Progress Note Labile blood pressure could be related to infection. He had difficulty controlling his heart rate and has an appointment to follow-up with cardiology to discuss metoprolol therapy etc. He has never worn a monitor at home but I suspect this will be explored and his cardiac appointment. We will keep him on the monitor give him some aspirin get an EKG troponin and a delta troponin today. He is having extremity swelling in all 4 limbs so DVTs x4 limbs seems less likely. No chest pain. We will get a BNP for his increased edema. Chest x-ray and urinalysis. Finally an anxiety attack could explain some of his symptoms. However since he still having a little pain in his left arm we will get a D-dimer and a CRP. Progress Note #2: Time: 19:45 Progress Note Heart score 3 points because of the lack of actual chest pain our suspicion is low for coronary disease with his history however he does have a lot of risk factors. Plan to do a rule out at 2044 which would be almost 5 hours after the start of his symptoms. We will keep him on a monitor for that time but we have not seen any dysrhythmia or significant hypertension yet. His blood pressure has been in the 150-170 range systolic which she says is normal for him. He is not having any symptoms at this time. If he has a second negative troponin we can have him follow-up in the next week or 2 with cardiology for further evaluation. Age based D-dimer is ruled out since he is in his 50s. ECG Initial ECG Impression Date: Nov 26, 2020 Initial ECG Impression Time: 18:15 Initial ECG Rate: 58 Initial ECG Rhythm: Normal Sinus Initial ECG Intervals: Normal Initial ECG Impression: Normal Initial ECG Comparisson: Unchanged Comment Normal sinus rhythm without clinically relevant ST elevation or depression. Diagnostic Imaging Diagonstic Imaging: Xray Plain Films/CT/US/NM/MRI: chest Comments NAME: STEVEN STEPHENS [facility] REC#: [id number] PT STATUS: REG ER : 1965 PHYSICIAN: LALI GUTIERREZ MD ADMIT DATE: 11/26/20/ER Draft Date of Exam:11/26/20 CHEST 1 VIEW, AP/PA ONLY INDICATION: Hypertension and paresthesia. EXAMINATION: AP view of the chest was obtained. COMPARISON: Study of 09/17/2020. Heart size and pulmonary vascularity are within normal limits, and the lungs are clear, bilaterally. IMPRESSION: Unremarkable chest. Dictated on workstation # [id number] Dict: 11/26/201924 Trans: 11/26/201926 PJE [id number] Interpreted by: MALLORY JOHNSON MD Electronically signed by: Reviewed: Reviewed by Me Departure Impression Primary Impression: Labile hypertension Additional Impression: Left arm pain Disposition: 01 HOME, SELF-CARE Condition: Stable Departure-Patient Inst. Decision time for Depature: 21:18 Referrals: CAROLINE HYMAN MD, MAXWELL MD (PCP/Family) Primary Care Physician Patient Instructions: High Blood Pressure (DC) Add. Discharge Instructions: Plan on calling Dr. Hyman's office in the morning and requesting follow-up within the next 2 weeks if possible for your arm pain and labile blood pressure. Return to the ER if you are having significant, persistent chest pain or shortn ess of air. Continue taking your medications as prescribed. All discharge instructions reviewed with patient and/or family. Voiced understanding. Copy Copies To 1: CAROLINE HYMAN MD, TITUS J Nov 26, 2020 18:41
[2020-11-26] MEDS ORDERED: ASPIRIN 81 MG CHEW (CHILDREN'S ASA) PO ONE (18:45)
[2020-11-26 18:54] LABS: BASOPHILS % (AUTO) 0 % (0-10); EOSINOPHILS % (AUTO) 0 % (0-10); HEMATOCRIT 43 % (40-54); HEMOGLOBIN 13.9 g/dL (13.3-17.7); LYMPHOCYTES # (AUTO) 0.7 10^3/uL (1.0-4.0); LYMPHOCYTES % (AUTO) 7 % (12-44); MEAN CORPUSCULAR HEMOGLOBIN 31 pg (25-34); MEAN CORPUSCULAR HGB CONC 33 g/dL (32-36); MEAN CORPUSCULAR VOLUME 95 fL (80-99); MEAN PLATELET VOLUME 10.7 fL (9.0-12.2); MONOCYTES # (AUTO) 0.3 10^3/uL (0.0-1.0); MONOCYTES % (AUTO) 3 % (0-12); NEUTROPHILS # (AUTO) 9.2 10^3/uL (1.8-7.8); NEUTROPHILS % (AUTO) 89 % (42-75); PLATELET COUNT 206 10^3/uL (130-400); WHITE BLOOD COUNT 10.3 10^3/uL (4.3-11.0)
[2020-11-26 18:57] LABS: BILIRUBIN,URINE NEGATIVE (NEGATIVE); CLARITY,URINE CLEAR; COLOR,URINE YELLOW; GLUCOSE, URINE (UA) NEGATIVE (NEGATIVE); KETONES,URINE NEGATIVE (NEGATIVE); LEUKOCYTE ESTERASE ,URINE NEGATIVE (NEGATIVE); NITRITE,URINE NEGATIVE (NEGATIVE); PROTEIN,URINE NEGATIVE (NEGATIVE)
[2020-11-26 19:05] LABS: ALBUMIN 3.6 GM/DL (3.2-4.5); BACTERIA,URINE NEGATIVE /HPF; CHLORIDE 101 MMOL/L (98-107); INR 0.9 (0.8-1.4); POTASSIUM 5.4 MMOL/L (3.6-5.0); PROTHROMBIN TIME PATIENT 12.3 SEC (12.2-14.7); SODIUM 136 MMOL/L (135-145)
[2020-11-26 19:07] LABS: CALCIUM 10.5 MG/DL (8.5-10.1)
[2020-11-26 19:08] LABS: GLUCOSE 221 MG/DL (70-105); TOTAL PROTEIN 6.4 GM/DL (6.4-8.2)
[2020-11-26 19:09] LABS: AMPHETAMINE SCREEN, URINE NEGATIVE (NEGATIVE); BARBITURATE SCREEN URINE NEGATIVE (NEGATIVE); BENZODIAZEPINES SCREEN URINE POSITIVE (NEGATIVE); CANNABINOID SCREEN, URINE POSITIVE (NEGATIVE); CARBON DIOXIDE 23 MMOL/L (21-32); COCAINE SCREEN URINE NEGATIVE (NEGATIVE); METHADONE STAT NEGATIVE (NEGATIVE); METHAMPHETAMINE SCREEN URINE S NEGATIVE (NEGATIVE); OPIATE SCREEN URINE NEGATIVE (NEGATIVE); OXYCODONE STAT POSITIVE (NEGATIVE); PROPOXYPHENE STAT NEGATIVE (NEGATIVE); TRICYCLIC ANTIDEPRESSANTS SCRE NEGATIVE (NEGATIVE)
[2020-11-26 19:10] LABS: BILIRUBIN,TOTAL 0.4 MG/DL (0.1-1.0)
[2020-11-26 19:11] LABS: ALKALINE PHOSPHATASE 70 U/L (40-136); CREATININE SERUM 0.95 MG/DL (0.60-1.30); GFR ESTIMATED > 60
[2020-11-26 19:12] LABS: BUN/CREATININE RATIO 12
[2020-11-26 19:14] LABS: ALANINE AMINOTRANSFERASE 32 U/L (0-55); MAGNESIUM 1.6 MG/DL (1.6-2.4)
[2020-11-26 19:20] LABS: LYMPHOCYTES % (MANUAL) 6 %; MONOCYTES % (MANUAL) 7 %; NEUTROPHILS % (MANUAL) 87 %
[2020-11-26 19:21] LABS: RBC MORPH NORMAL
--- NOTE | 2020-11-26 19:28 | Diagnostic Imaging Report ---
INDICATION: Hypertension and paresthesia. EXAMINATION: AP view of the chest was obtained. COMPARISON: Study of 09/17/2020. Heart size and pulmonary vascularity are within normal limits, and the lungs are clear, bilaterally. IMPRESSION: Unremarkable chest. Dictated by: Dictated on workstation # [id number]
[2020-11-26 21:54] VITALS: BP 167/91
== END 2020-11-26 21:54 | disposition home or self-care (01) ==
LOC: EDUNIT# 17:42 → ER 17:47
DX: I10 Essential (primary) hypertension (principal); M79.602 Pain in left arm; E66.01 Morbid (severe) obesity due to excess calories; F41.9 Anxiety disorder, unspecified; E11.9 Type 2 diabetes mellitus without complications; J44.9 Chronic obstructive pulmonary disease, unspecified; F32.9 Major depressive disorder, single episode, unspecified; G89.29 Other chronic pain; M54.9 Dorsalgia, unspecified; F17.210 Nicotine dependence, cigarettes, uncomplicated; Z68.41 Body mass index [BMI] 40.0-44.9, adult; Z88.5 Allergy status to narcotic agent; Z91.040 Latex allergy status; Z82.49 Family history of ischemic heart disease and other diseases of the circulatory system; Z79.52 Long term (current) use of systemic steroids; Z79.4 Long term (current) use of insulin; Z79.891 Long term (current) use of opiate analgesic
CPT/HCPCS: 36415; 71045; 80053; 80306; 81000; 83735; 83874; 83880; 84484; 85007; 85025; 85027; 85379; 85610; 85730; 86141; 93005; 93041

== ENCOUNTER 2021-07-28 14:22 | Emergency (ER) | payer MEDICARE, MEDICAID ==
[~2021-07-28] VITALS: Ht 182 cm; Wt 113.0 kg
[~2021-07-28 14:22] MED LIST changes: +CLIN-144 PO; -CLIN300C12 PO; -DULO60CA6 PO; +DULO60CA7 PO; -SULF1TAB35 PO; +SULF1TAB38 PO
--- NOTE | 2021-07-28 15:00 | ED Lower Extremity ---
General Chief Complaint: Lower Extremity Stated Complaint: RIGHT ANKLE PAIN Nursing Triage Note: THE PT IS ASSISTED TO THE ROOM BY WHEELCHAIR. NO DISTRESS IS SEEN ON ARRIVAL. LOC IS NORMAL FOR TH PT THE PT C/O RIGHT FOOT PAIN. Source: patient Exam Limitations: no limitations History of Present Illness Date Seen by Provider: Jul 28, 2021 Time Seen by Provider: 14:59 Initial Comments To ER by private vehicle with reports of right lateral ankle pain for about 3 weeks after he fell. He just assumed it was sprained. He saw his configuration management architect yesterday who did an x-ray and found that he had a "dislocated fracture". Recommended that he go to an urgent care to get a boot but he decid ed to come here instead. Onset: just prior to arrival Severity: moderate Pain/Injury Location: right ankle Method of Injury: fell Modifying Factors: Worse With Movement Allergies and Home Medications Allergies Coded Allergies: hydrocodone (Verified Allergy, Unknown, TAKES OXYCODONE AT HOME, 05/05/16) STATES IS NOT ALLERGIC TO THIS MED latex (Verified Allergy, Unknown, 05/05/16) Patient Home Medication List Home Medication List Reviewed: Yes Albuterol Sulfate (Proair Hfa) 8.5 Gm Hfa.aer.ad, 2 PUFF IH QID PRN for SHORTNESS OF BREATH, (Reported) Entered as Reported by: WHITNEY DOWD on 02/26/16 0952 Alendronate Sodium (Alendronate Sodium) 70 Mg Tablet, 70 MG PO SUN, (Reported) Entered as Reported by: LISS EDMOND on 09/18/20 1523 Alprazolam (Alprazolam) 1 Mg Tablet, 1 MG PO BID PRN for ANXIETY, (Reported) Entered as Reported by: LISS EDMOND on 09/18/20 1523 Amlodipine Besylate (Amlodipine Besylate) 10 Mg Tablet, 10 MG PO DAILY Prescribed by: MATILDA CRAWFORD on 09/20/20 1152 Amoxicillin/Potassium Clav (Augmentin 875-125 Tablet) 1 Each Tablet, 1 EACH PO BID Prescribed by: MATILDA CRAWFORD on 09/20/20 1152 Duloxetine HCl (Duloxetine HCl) 60 Mg Capsule.dr, 60 MG PO DAILY, (Reported) Entered as Reported by: ENE MARTINI on 10/16/18 0900 Furosemide (Furosemide) 20 Mg Tablet, 20 MG PO DAILY PRN for FLUID RETENTION, (Reported) Entered as Reported by: ENE MARTINI on 05/02/17 1430 Gabapentin (Gabapentin) 800 Mg Tablet, 800 MG PO TID, (Reported) Entered as Reported by: ENE MARTINI on 04/25/17 1427 Gabapentin (Gabapentin) 100 Mg Capsule, 100 MG PO Q8H, (Reported) Entered as Reported by: LISS EDMOND on 09/18/20 1523 Hydrochlorothiazide (Hydrochlorothiazide) 25 Mg Tablet, 25 MG PO DAILY Prescribed by: MATILDA CRAWFORD on 09/20/20 1152 Insulin Detemir (Levemir Flextouch) 100 Unit/1 Ml Insuln.pen, 40 UNIT SQ HS, (Reported) Entered as Reported by: ENE MARTINI on 10/16/18 1032 Insulin Lispro (Insulin Lispro Kwikpen U-100) 100 Unit/1 Ml Insuln.pen, UNITS SQ AC, (Reported) Entered as Reported by: LISS EDMOND on 09/18/20 1523 Lisinopril (Lisinopril) 20 Mg Tablet, 40 MG PO DAILY Prescribed by: MATILDA CRAWFORD on 09/20/20 1152 Mometasone/Formoterol (Dulera 100 Mcg/5 Mcg Inhaler) 13 Gm Hfa.aer.ad, 1 PUFF INH BID, (Reported) Entered as Reported by: LISS EDMOND on 09/18/20 1523 Oxycodone HCl (Oxycodone HCl) 30 Mg Tablet, 30 MG PO Q4 -6H PRN for BREAKTHROUGH PAIN, (Reported) Entered as Reported by: WHITNEY DOWD on 02/26/16 0938 Oxycodone HCl (Oxycontin) 80 Mg Tab.er.12h, 80 MG PO Q8H, (Reported) Entered as Reported by: WHITNEY DOWD on 02/26/16 09 Prednisone (Prednisone) 20 Mg Tab, 20 MG PO DAILY, (Reported) Entered as Reported by: ENE MARTINI on 05/02/17 1430 Promethazine HCl (Promethazine Tablet) 25 Mg Tablet, 25 MG PO BID PRN for NAUSEA/VOMITING-2ND LINE, (Reported) Entered as Reported by: WHITNEY DOWD on 02/26/16 0952 Review of Systems Constitutional: see HPI EENTM: see HPI Respiratory: no symptoms reported Cardiovascular: no symptoms reported Genitourinary: no symptoms reported Musculoskeletal: see HPI Skin: no symptoms reported Psychiatric/Neurological: No Symptoms Reported Past Hvhamau-Sfgpjp-Rgsbqe Hx Immunizations Up To Date Tetanus Booster (TDap): Unknown PED Vaccines UTD: Yes Seasonal Allergies Seasonal Allergies: No Past Medical History Surgeries: Yes Abdominal, Cardiac, Orthopedic Respiratory: Yes Pneumonia, COPD Currently Using CPAP: Yes Currently Using BIPAP: Yes Cardiac: Yes Chronic Edema/Swelling, Hypertension, Peripheral Vascular Neurological: Yes (MONO NEURITIS; NEUROPATHY--WHEELCHAIR BOUND) Headaches /Migraines, Neuropathy Reproductive Disorders: No Sexually Transmitted Disease: No HIV/AIDS: No Genitourinary: Yes Bladder Infection, Kidney Stones, Renal Failure, UTI-Chronic Gastrointestinal: Yes (HEPATITIS C--NO TREATMENT. BILARY STENT) Gastroesophageal Reflux, Liver Disease/Jaundice, Hepatitis, Gall Bladder Disease Musculoskeletal: Yes Degenerate Disk Disease, Arthritis, Rheumatoid Arthritis, Chronic Back Pain Endocrine: Yes (MORBID OBESITY; ELEVATED URIC ACID) Diabetes, Insulin dep HEENT: No Loss of Vision: Denies Hearing Impairment: Denies Cancer: No Psychosocial: Yes Sleep Difficulties, Anxiety, Depression Integumentary: Yes Blood Disorders: No Family Medical History Alcoholism 03 FATHER Diabetes mellitus 03 FATHER Family history: Allergy 03 MOTHER Family history: Asthma 03 MOTHER Family history: Hypertension 03 FATHER 03 MOTHER No Pertinent Family Hx Physical Exam Vital Signs Vital Signs - First Documented 07/28/21 14:52 Temp 36.9 Pulse 80 Resp 18 B/P (MAP) 155/86 (109) Pulse Ox 94 Capillary Refill : Less Than 3 Seconds Height, Weight, BMI Height: 6'0.00" Weight: 306lbs. 0.0oz. [id number]; 34.00 BMI Method:Stated General Appearance: WD/WN, no apparent distress HEENT: PERRL/EOMI, TMs normal Respiratory: no respiratory distress, no accessory muscle use Hips: bilateral hip non-tender, bilateral hip normal inspection, bilateral hip normal range of motion Legs: bilateral leg non-tender, bilateral leg normal inspection, bilateral leg normal range of motion Knees: bilateral knee non-tender, bilateral knee normal inspection, bilateral knee normal range of motion Ankles: right ankle pain, right ankle soft tissue tenderness, right ankle swelling Feet: bilateral foot non-tender, bilateral foot normal inspection, bilateral foot normal range of motion Neurologic/Psychiatric: alert, normal mood/affect, oriented x 3 Skin: normal color, warm/dry Procedures/Interventions Date of ETT Placement: Oct 15, 2018 Time of ETT Placement: 1350 Progress/Results/Core Measures Results/Orders My Orders Orders - CANDACE ACOSTA APRN Ankle, Right, 3 Views (07/28/21 14:59) Vital Signs/I&O 07/28/21 14:52 Temp 36.9 Pulse 80 Resp 18 B/P (MAP) 155/86 (109) Pulse Ox 94 Blood Pressure Mean: 109 Departure Communication (Admissions) 1525 there appears to be a small avulsion fracture off the proximal fifth metatarsal. Impression Primary Impression: Metatarsal fracture Disposition: 01 HOME, SELF-CARE Condition: Stable Departure-Patient Inst. Decision time for Depature: 15:18 Referrals: SELFTYRA MD (PCP/Family) Primary Care Physician Patient Instructions: Walking Boot CANDACE ACOSTA APRN Jul 28, 2021 15:00
--- NOTE | 2021-07-28 15:18 | Diagnostic Imaging Report ---
Ankle, right, 3 views INDICATION: Right ankle pain. COMPARISON: None available. TECHNIQUE: Three views of the right ankle. FINDINGS: No fracture is appreciated. No features of osseous tarsal coalition. Assessment of the talar dome is suboptimal due to positioning. Moderate amount of soft tissue swelling is present. Small plantar calcaneal spur. IMPRESSION: No acute fracture about the right ankle. Dictated by: Dictated on workstation # [id number]
[2021-07-28 15:46] VITALS: BP 133/69
== END 2021-07-28 15:46 | disposition home or self-care (01) ==
LOC: EDUNIT# 14:22 → ER 14:25
DX: S92.351A Displaced fracture of fifth metatarsal bone, right foot, initial encounter for closed fracture (principal); J44.9 Chronic obstructive pulmonary disease, unspecified; I10 Essential (primary) hypertension; E11.9 Type 2 diabetes mellitus without complications; E66.01 Morbid (severe) obesity due to excess calories; F41.9 Anxiety disorder, unspecified; F32.9 Major depressive disorder, single episode, unspecified; G89.29 Other chronic pain; M54.9 Dorsalgia, unspecified; Z68.34 Body mass index [BMI] 34.0-34.9, adult; Z79.4 Long term (current) use of insulin; Z79.899 Other long term (current) drug therapy; Z79.891 Long term (current) use of opiate analgesic; W18.30XA Fall on same level, unspecified, initial encounter
CPT/HCPCS: 73610; 99283; L2114

== ENCOUNTER 2022-01-28 12:03 | Emergency (ER) | payer MEDICARE, MEDICAID ==
[2022-01-28] MEDS ORDERED: LORazepam INJ 2 MG/ML (ATIVAN) VIAL IVP ONE ×2 (12:15→13:00)
[2022-01-28] MEDS ORDERED: NS IV 1000 ML 1,000 ML IV SCH (12:15)
[2022-01-28] MEDS ORDERED: NS IV 1000 ML 1,000 ML ONE (12:17)
[2022-01-28] MEDS ORDERED: LORazepam INJ 2 MG/ML (ATIVAN) VIAL ONE (12:18)
--- NOTE | 2022-01-28 12:27 | ED General ---
General Chief Complaint: Altered Mental Status Stated Complaint: OVERDOSE Nursing Triage Note: PT BROUGHT IN BY [facility] FROM HOME WITH COMPLAINT OF ALT MENTAL STATUS. PER EMS, MOM CALLED STATED PT WAS NOT ACTING RIGHT. STATES PT TAKES OXYCODONES AT HOME. PT STATES HE TOOK METH. Source of Information: EMS History of Present Illness Date Seen by Provider: Jan 28, 2022 Time Seen by Provider: 12:05 Initial Comments Chadwick is a 56-year-old who presents to the emergency department by ambulance today, the ambulance was called by his mother for abnormal/altered behavior. Unknown time of onset as the mother is not here today. Chadwick is unable to provide HPI, review of systems, past medical family or social history secondary to what appears to be intoxication. Old record review in the computer system shows that the patient has a history of methamphetamine abuse back in 2016. Clinically he appears to be intoxicated on methamphetamine today. Most notably in his drug screens of recent are opiates and marijuana and benzodiazepines. Patient is afebrile on arrival. He will open his eyes to command. He is quite erratic and jerky in the bed consistent with amphetamine intoxication. Vital signs are otherwise stable. He does not appear injured. He is moving all 4 extremities. He will intermittently answer questions, I asked him about the tattoos on his left forearm which are 2 names and he was able to tell me that those were his daughters. Otherwise he will not converse. He does appear to have suffered from tarango in the past as he has multiple areas of skin grafting and healed tarango to his lower legs. Review of systems unobtainable secondary to intoxication Timing/Duration: Other (unknown) Allergies and Home Medications Allergies Coded Allergies: hydrocodone (Verified Allergy, Unknown, TAKES OXYCODONE AT HOME, 05/05/16) STATES IS NOT ALLERGIC TO THIS MED latex (Verified Allergy, Unknown, 05/05/16) Patient Home Medication List Home Medication List Reviewed: Yes Albuterol Sulfate (Proair Hfa) 8.5 Gm Hfa.aer.ad, 2 PUFF IH QID PRN for SHORTNESS OF BREATH, (Reported) Entered as Reported by: WHITNEY DOWD on 02/26/16 0903 Alendronate Sodium (Alendronate Sodium) 70 Mg Tablet, 70 MG PO SUN, (Reported) Entered as Reported by: LISS EDMOND on 09/18/20 1523 Alprazolam (Alprazolam) 1 Mg Tablet, 1 MG PO BID PRN for ANXIETY, (Reported) Entered as Reported by: LISS EDMOND on 09/18/20 1523 Amlodipine Besylate (Amlodipine Besylate) 10 Mg Tablet, 10 MG PO DAILY Prescribed by: MATILDA CRAWFORD on 09/20/20 1152 Amoxicillin/Potassium Clav (Augmentin 875-125 Tablet) 1 Each Tablet, 1 EACH PO BID Prescribed by: MATILDA CRAWFORD on 09/20/20 1152 Duloxetine HCl (Duloxetine HCl) 60 Mg Capsule.dr, 60 MG PO DAILY, (Reported) Entered as Reported by: ENE MARTINI on 10/16/18 0900 Furosemide (Furosemide) 20 Mg Tablet, 20 MG PO DAILY PRN for FLUID RETENTION, (Reported) Entered as Reported by: ENE MARTINI on 05/02/17 1430 Gabapentin (Gabapentin) 800 Mg Tablet, 800 MG PO TID, (Reported) Entered as Reported by: ENE MARTINI on 04/25/17 1427 Gabapentin (Gabapentin) 100 Mg Capsule, 100 MG PO Q8H, (Reported) Entered as Reported by: LISS EDMOND on 09/18/20 1523 Hydrochlorothiazide (Hydrochlorothiazide) 25 Mg Tablet, 25 MG PO DAILY Prescribed by: MATILDA CRAWFORD on 09/20/20 1152 Insulin Detemir (Levemir Flextouch) 100 Unit/1 Ml Insuln.pen, 40 UNIT SQ HS, (Reported) Entered as Reported by: ENE MARTINI on 10/16/18 1032 Insulin Lispro (Insulin Lispro Kwikpen U-100) 100 Unit/1 Ml Insuln.pen, UNITS SQ AC, (Reported) Entered as Reported by: LISS EDMOND on 09/18/20 1523 Lisinopril (Lisinopril) 20 Mg Tablet, 40 MG PO DAILY Prescribed by: MATILDA CRAWFORD on 09/20/20 1152 Mometasone/Formoterol (Dulera 100 Mcg/5 Mcg Inhaler) 13 Gm Hfa.aer.ad, 1 PUFF INH BID, (Reported) Entered as Reported by: LISS EDMOND on 09/18/20 1523 Oxycodone HCl (Oxycodone HCl) 30 Mg Tablet, 30 MG PO Q4 -6H PRN for BREAKTHROUGH PAIN, (Reported) Entered as Reported by: WHITNEY DOWD on 02/26/16 0938 Oxycodone HCl (Oxycontin) 80 Mg Tab.er.12h, 80 MG PO Q8H, (Reported) Entered as Reported by: WHITNEY DOWD on 02/26/16 0938 Prednisone (Prednisone) 20 Mg Tab, 20 MG PO DAILY, (Reported) Entered as Reported by: ENE MARTINI on 05/02/17 1430 Promethazine HCl (Promethazine Tablet) 25 Mg Tablet, 25 MG PO BID PRN for NAUSEA/VOMITING-2ND LINE, (Reported) Entered as Reported by: WHITNEY DOWD on 02/26/16 0952 Review of Systems Review of Systems Constitutional: see HPI Unable to obtain secondary to AMS/Intoxication Past Xzzssfp-Hkhjkl-Ojccfn Hx Immunizations Up To Date Tetanus Booster (TDap): Unknown PED Vaccines UTD: Yes Seasonal Allergies Seasonal Allergies: No Past Medical History Surgeries: Yes Abdominal, Cardiac, Orthopedic Respiratory: Yes Pneumonia, COPD Currently Using CPAP: Yes Currently Using BIPAP: Yes Cardiac: Yes Chronic Edema/Swelling, Hypertension, Peripheral Vascular Neurological: Yes (MONO NEURITIS; NEUROPATHY--WHEELCHAIR BOUND) Headaches /Migraines, Neuropathy Reproductive Disorders: No Sexually Transmitted Disease: No HIV/AIDS: No Genitourinary: Yes Bladder Infection, Kidney Stones, Renal Failure, UTI-Chronic Gastrointestinal: Yes (HEPATITIS C--NO TREATMENT. BILARY STENT) Gastroesophageal Reflux, Liver Disease/Jaundice, Hepatitis, Gall Bladder Disease Musculoskeletal: Yes Degenerate Disk Disease, Arthritis, Rheumatoid Arthritis, Chronic Back Pain Endocrine: Yes (MORBID OBESITY; ELEVATED URIC ACID) Diabetes, Insulin dep HEENT: No Loss of Vision: Denies Hearing Impairment: Denies Cancer: No Psychosocial: Yes Sleep Difficulties, Anxiety, Depression Integumentary: Yes Blood Disorders: No Family Medical History Alcoholism 03 FATHER Diabetes mellitus 03 FATHER Family history: Allergy 03 MOTHER Family history: Asthma 03 MOTHER Family history: Hypertension 03 FATHER 03 MOTHER No Pertinent Family Hx Physical Exam Vital Signs Vital Signs - First Documented 01/28/22 12:05 Pulse 98 Resp 35 B/P (MAP) 169/107 (127) Pulse Ox 100 O2 Delivery Nasal Cannula O2 Flow Rate 2.00 Capillary Refill : Less Than 3 Seconds Height, Weight, BMI Height: 6'0.00" Weight: 306lbs. 0.0oz. 138.878760ab; 34.00 BMI Method:Stated General Appearance: Anxious, Mild Distress, Obese Eyes: Bilateral Eye Normal Inspection, Bilateral Eye PERRL HEENT: PERRL/EOMI, Other (dry oral mucosa) Neck: Normal Inspection Respiratory: Lungs Clear, Normal Breath Sounds, No Accessory Muscle Use, No Respiratory Distress Cardiovascular: Regular Rate, Rhythm, Normal Peripheral Pulses Gastrointestinal: Non Tender, Soft Extremity: Normal Inspection, Normal Range of Motion Neurologic/Psychiatric: Alert, Oriented x3, No Motor/Sensory Deficits Skin: Normal Color, Warm/Dry, Other (multiple skin graft sites) Procedures/Interventions Date of ETT Placement: Oct 15, 2018 Time of ETT Placement: 1350 Progress/Results/Core Measures Suspected Sepsis SIRS Temperature: Pulse: 98 Respiratory Rate: 35 Laboratory Tests 01/28/22 12:15: White Blood Count 7.7 Blood Pressure 169 /107 Mean: 127 Laboratory Tests 01/28/22 12:15: Creatinine 1.42H, Platelet Count 122L, Total Bilirubin 0.9 Results/Orders Lab Results Laboratory Tests Test 01/28/22 12:11 01/28/22 12:15 01/28/22 13:03 01/28/22 14:26 Range/Units Glucometer 214 H 70-110 MG/DL White Blood Count 7.7 4.3-11.0 10^3/uL Red Blood Count 4.64 4.30-5.52 10^6/uL Hemoglobin 13.8 13.3-17.7 g/dL Hematocrit 41 40-54 % Mean Corpuscular Volume 89 80-99 fL Mean Corpuscular Hemoglobin 30 25-34 pg Mean Corpuscular Hemoglobin Concent 33 32-36 g/dL Red Cell Distribution Width 14.2 10.0-14.5 % Platelet Count 122 L 130-400 10^3/uL Mean Platelet Volume 10.4 9.0-12.2 fL Immature Granulocyte % (Auto) 1 % Neutrophils (%) (Auto) 67 42-75 % Lymphocytes (%) (Auto) 20 12-44 % Monocytes (%) (Auto) 10 0-12 % Eosinophils (%) (Auto) 3 0-10 % Basophils (%) (Auto) 0 0-10 % Neutrophils # (Auto) 5.2 1.8-7.8 10^3/uL Lymphocytes # (Auto) 1.5 1.0-4.0 10^3/uL Monocytes # (Auto) 0.8 0.0-1.0 10^3/uL Eosinophils # (Auto) 0.2 0.0-0.3 10^3/uL Basophils # (Auto) 0.0 0.0-0.1 10^3/uL Immature Granulocyte # (Auto) 0.0 0.0-0.1 10^3/uL Percent Immature Platelet Fraction 5.0 0.0-7.6 % Sodium Level 140 135-145 MMOL/L Potassium Level 3.6 3.6-5.0 MMOL/L Chloride Level 105 98-107 MMOL/L Carbon Dioxide Level 26 21-32 MMOL/L Anion Gap 9 5-14 MMOL/L Blood Urea Nitrogen 9 7-18 MG/DL Creatinine 1.42 H 0.60-1.30 MG/DL Estimat Glomerular Filtration Rate 58 BUN/Creatinine Ratio 6 Glucose Level 227 H 70-105 MG/DL Calcium Level 10.0 8.5-10.1 MG/DL Corrected Calcium 10.6 H 8.5-10.1 MG/DL Total Bilirubin 0.9 0.1-1.0 MG/DL Aspartate Amino Transf (AST/SGOT) 21 5-34 U/L Alanine Aminotransferase (ALT/SGPT) 34 0-55 U/L Alkaline Phosphatase 76 40-136 U/L Total Protein 6.0 L 6.4-8.2 GM/DL Albumin 3.3 3.2-4.5 GM/DL Salicylates Level < 5.0 L 5.0-20.0 MG/DL Acetaminophen Level < 10 L 10-30 UG/ML Serum Alcohol < 10 <10 MG/DL Urine Color YELLOW Urine Clarity CLEAR Urine pH 6.0 5-9 Urine Specific [place] 1.015 L 1.016-1.022 Urine Protein 1+ H NEGATIVE Urine Glucose (UA) 2+ H NEGATIVE Urine Ketones NEGATIVE NEGATIVE Urine Nitrite NEGATIVE NEGATIVE Urine Bilirubin NEGATIVE NEGATIVE Urine Urobilinogen 0.2 < = 1.0 MG/DL Urine Leukocyte Esterase NEGATIVE NEGATIVE Urine RBC (Auto) 1+ H NEGATIVE Urine RBC 2-5 H /HPF Urine WBC NONE /HPF Urine Squamous Epithelial Cells RARE /HPF Urine Crystals NONE /LPF Urine Bacteria NEGATIVE /HPF Urine Casts PRESENT /LPF Urine Granular Casts RARE /LPF Urine Mucus RARE /LPF Urine Culture Indicated NO Urine Opiates Screen NEGATIVE NEGATIVE Urine Oxycodone Screen POSITIVE H NEGATIVE Urine Methadone Screen NEGATIVE NEGATIVE Urine Propoxyphene Screen NEGATIVE NEGATIVE Urine Barbiturates Screen NEGATIVE NEGATIVE Ur Tricyclic Antidepressants Screen NEGATIVE NEGATIVE Urine Phencyclidine Screen NEGATIVE NEGATIVE Urine Amphetamines Screen NEGATIVE NEGATIVE Urine Methamphetamines Screen NEGATIVE NEGATIVE Urine Benzodiazepines Screen POSITIVE H NEGATIVE Urine Cocaine Screen NEGATIVE NEGATIVE Urine Cannabinoids Screen POSITIVE H NEGATIVE Bedside Blood Gas pH (LAB) 7.391 7.310-7.410 Bedside Blood Gas pCO2 (LAB) 45.7 41.0-51.0 mmHg Bedside Blood Gas pO2 (LAB) 76 L 80-105 mmHg Bedside Blood Gas HCO3 (LAB) 27.7 23.0-28.0 mmol/L POC Blood Gas Total CO2 Calc 29 24-29 mmol/L Bedside Bl Gas O2 Saturation (Calc) 95 95-98 % Bedside Arterial Blood Base Excess 3 -2-3 mmol/L My Orders Orders - JEFFERSON HUMPHREY MD Ed Iv/Invasive Line Start (01/28/22 12:14) Cbc With Automated Diff (01/28/22 12:14) Comprehensive Metabolic Panel (01/28/22 12:14) Salicylate (01/28/22 12:14) Acetaminophen (01/28/22 12:14) Alcohol (01/28/22 12:14) Ns Iv 1000 Ml (Sodium Chloride 0.9%) (01/28/22 12:15) Lorazepam Injection (Ativan Injection) (01/28/22 12:15) Ekg Tracing (01/28/22 12:15) Ns Iv 1000 Ml (Sodium Chloride 0.9%) (01/28/22 12:17) Lorazepam Injection (Ativan Injection) (01/28/22 12:18) Lorazepam Injection (Ativan Injection) (01/28/22 13:00) Lidocaine 2% (Urojet) (Xylocaine Urojet) (01/28/22 12:49) Ct Head Wo (01/28/22 13:36) Medications Given in ED Current Medications Medications Dose Ordered Sig/Lashawn Route Start Time Stop Time Status Last Admin Dose Admin Lorazepam 2 mg ONCE ONCE IVP 01/28/22 12:15 01/28/22 12:16 DC 01/28/22 12:21 2 MG Lorazepam 2 mg ONCE ONCE IVP 01/28/22 13:00 01/28/22 13:01 DC 01/28/22 12:56 2 MG Vital Signs/I&O 01/28/22 12:05 Pulse 98 Resp 35 B/P (MAP) 169/107 (127) Pulse Ox 100 O2 Delivery Nasal Cannula O2 Flow Rate 2.00 Capillary Refill : Less Than 3 Seconds Blood Pressure Mean: 127 Progress Note : Time: 15:18 Progress Note Reassessed patient after all laboratory studies and imaging completed, he is completely awake alert and oriented. He is able to maintain and carry on a conversation that is appropriate. He thinks that he might have missed a dose of his pain meds, he is on large amounts of narcotics on a routine basis. 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 Family thinks that he might of missed a pain pill as well probably one of his 80 mg OxyContin's. He denies any complaints of illness currently. He has chronic pain that is unremitting. He is currently a patient of Dr. Yarbrough in the [place] and has a scheduled appointment on 06 February. He feels comfortable going home. No concerns. I have reviewed all of his labs with his mother who is at the bedside as well. All questions are sought and answered. Patient is stable for discharge. ECG Initial ECG Impression Date: Jan 28, 2022 Initial ECG Impression Time: 14:14 Initial ECG Rate: 107 Initial ECG Rhythm: S.Tach Initial ECG Intervals: Normal Initial ECG Impression: Nonspecific Changes Diagnostic Imaging Diagonstic Imaging: CT Comments [facility], [place] NAME: CHADWICK STEPHENS [facility] REC#: [id number] PT STATUS: REG ER : 1965 PHYSICIAN: JEFFERSON HUMPHREY MD ADMIT DATE: 01/28/22/ER Draft Date of Exam:01/28/22 CT HEAD WO PROCEDURE: CT head without contrast. TECHNIQUE: Multiple contiguous axial images were obtained through the brain without the use of intravenous contrast. Auto Exposure Controls were utilized during the CT exam to meet ALARA standards for radiation dose reduction. INDICATION: Altered mental status. COMPARISON: Exam compared with head CT of 10/15/2018. FINDINGS: There is no hemorrhage, hydrocephalus, edema, mass, mass effect, or evidence for elevated pressures. Cerebral cortical volume is stable with some bifrontal atrophy and prominence of the extra-axial CSF spaces low density, stable and chronic. Some periventricular white matter hypodensity, stable, likely small vessel disease but greater than typically encountered in this age, correlate for risk factors for vasculopathy. No findings of cortical edema. No evidence for elevated pressures and there is no hemorrhage. There is no mass or mass effect. Orbits, sinuses, and calvarium appeared nonacute. IMPRESSION: Some premature atrophy and white matter disease but no hemorrhage, infarct, mass, or acute finding. No significant change from prior. Dictated on workstation # [id number] Dict: 01/28/22 1355 Trans: 01/28/22 1406 [id number] Interpreted by: MALLORY LÓPEZ Electronically signed by: Departure Impression Primary Impression: Altered mental status Qualified Codes: R41.0 - Disorientation, unspecified Additional Impressions: Narcotic dependency, continuous Chronic pain Qualified Codes: G89.29 - Other chronic pain Disposition: 01 HOME, SELF-CARE Condition: Improved Departure-Patient Inst. Decision time for Depature: 15:21 Referrals: BRAD BENITEZ DO (PCP) Primary Care Physician GINNY YARBROUGH MD Patient Instructions: Chronic Pain (DC) Add. Discharge Instructions: Continue your daily pain medications and other prescribed medications. Please keep your scheduled follow-up appointment with Dr. Yarbrough on the . Return to the emergency department if you develop any new, concerning or emergent complaints. Copy Copies To 1: GINNY YARBROUGH MD, KATHRYN M MD Jan 28, 2022 12:27
[2022-01-28 12:33] LABS: BASOPHILS % (AUTO) 0 % (0-10); HEMATOCRIT 41 % (40-54); HEMOGLOBIN 13.8 g/dL (13.3-17.7); MEAN CORPUSCULAR HGB CONC 33 g/dL (32-36); MEAN PLATELET VOLUME 10.4 fL (9.0-12.2)
[2022-01-28 12:35] LABS: EOSINOPHILS # (AUTO) 0.2 10^3/uL (0.0-0.3); EOSINOPHILS % (AUTO) 3 % (0-10); LYMPHOCYTES # (AUTO) 1.5 10^3/uL (1.0-4.0); LYMPHOCYTES % (AUTO) 20 % (12-44); MEAN CORPUSCULAR HEMOGLOBIN 30 pg (25-34); MEAN CORPUSCULAR VOLUME 89 fL (80-99); MONOCYTES # (AUTO) 0.8 10^3/uL (0.0-1.0); MONOCYTES % (AUTO) 10 % (0-12); NEUTROPHILS # (AUTO) 5.2 10^3/uL (1.8-7.8); NEUTROPHILS % (AUTO) 67 % (42-75); PLATELET COUNT 122 10^3/uL (130-400); WHITE BLOOD COUNT 7.7 10^3/uL (4.3-11.0)
[2022-01-28 12:43] LABS: CHLORIDE 105 MMOL/L (98-107); POTASSIUM 3.6 MMOL/L (3.6-5.0); SODIUM 140 MMOL/L (135-145)
[2022-01-28 12:44] LABS: ALBUMIN 3.3 GM/DL (3.2-4.5)
[2022-01-28 12:46] LABS: GLUCOSE 227 MG/DL (70-105)
[2022-01-28 12:47] LABS: CARBON DIOXIDE 26 MMOL/L (21-32)
[2022-01-28 12:48] LABS: BILIRUBIN,TOTAL 0.9 MG/DL (0.1-1.0)
[2022-01-28] MEDS ORDERED: LIDOCAINE UROJET 2% GEL 10 ML PKG ONE (12:49)
[2022-01-28 12:50] LABS: ALKALINE PHOSPHATASE 76 U/L (40-136); CREATININE SERUM 1.42 MG/DL (0.60-1.30); GFR ESTIMATED 58
[2022-01-28 12:51] LABS: BUN/CREATININE RATIO 6
[2022-01-28 12:53] LABS: ALANINE AMINOTRANSFERASE 34 U/L (0-55); SALICYLATE < 5.0 MG/DL (5.0-20.0)
[2022-01-28 13:02] LABS: ACETAMINOPHEN < 10 UG/ML (10-30)
[2022-01-28 13:12] LABS: BILIRUBIN,URINE NEGATIVE (NEGATIVE); CLARITY,URINE CLEAR; COLOR,URINE YELLOW; GLUCOSE, URINE (UA) 2+ (NEGATIVE); KETONES,URINE NEGATIVE (NEGATIVE); LEUKOCYTE ESTERASE ,URINE NEGATIVE (NEGATIVE); NITRITE,URINE NEGATIVE (NEGATIVE); PROTEIN,URINE 1+ (NEGATIVE)
[2022-01-28 13:27] LABS: AMPHETAMINE SCREEN, URINE NEGATIVE (NEGATIVE); BARBITURATE SCREEN URINE NEGATIVE (NEGATIVE); BENZODIAZEPINES SCREEN URINE POSITIVE (NEGATIVE); CANNABINOID SCREEN, URINE POSITIVE (NEGATIVE); COCAINE SCREEN URINE NEGATIVE (NEGATIVE); METHADONE STAT NEGATIVE (NEGATIVE); OPIATE SCREEN URINE NEGATIVE (NEGATIVE); OXYCODONE STAT POSITIVE (NEGATIVE); PROPOXYPHENE STAT NEGATIVE (NEGATIVE); TRICYCLIC ANTIDEPRESSANTS SCRE NEGATIVE (NEGATIVE)
[2022-01-28 13:28] LABS: BACTERIA,URINE NEGATIVE /HPF; SQUAMOUS EPITHELIAL CELL,UR RARE /HPF
[2022-01-28 13:29] LABS: GRANULAR CASTS,URINE RARE /LPF
--- NOTE | 2022-01-28 14:06 | Diagnostic Imaging Report ---
PROCEDURE: CT head without contrast. TECHNIQUE: Multiple contiguous axial images were obtained through the brain without the use of intravenous contrast. Auto Exposure Controls were utilized during the CT exam to meet ALARA standards for radiation dose reduction. INDICATION: Altered mental status. COMPARISON: Exam compared with head CT of 10/15/2018. FINDINGS: There is no hemorrhage, hydrocephalus, edema, mass, mass effect, or evidence for elevated pressures. Cerebral cortical volume is stable with some bifrontal atrophy and prominence of the extra-axial CSF spaces low density, stable and chronic. Some periventricular white matter hypodensity, stable, likely small vessel disease but greater than typically encountered in this age, correlate for risk factors for vasculopathy. No findings of cortical edema. No evidence for elevated pressures and there is no hemorrhage. There is no mass or mass effect. Orbits, sinuses, and calvarium appeared nonacute. IMPRESSION: Some premature atrophy and white matter disease but no hemorrhage, infarct, mass, or acute finding. No significant change from prior. Dictated by: Dictated on workstation # [id number]
[2022-01-28 15:36] VITALS: BP 172/98
== END 2022-01-28 15:36 | disposition home or self-care (01) ==
LOC: ER 12:03 → EDUNIT# 12:03 → ER 15:36
DX: R41.82 Altered mental status, unspecified (principal); F11.20 Opioid dependence, uncomplicated; G89.29 Other chronic pain; J44.9 Chronic obstructive pulmonary disease, unspecified; E11.40 Type 2 diabetes mellitus with diabetic neuropathy, unspecified; E66.01 Morbid (severe) obesity due to excess calories; Z99.81 Dependence on supplemental oxygen; Z79.4 Long term (current) use of insulin; Z68.34 Body mass index [BMI] 34.0-34.9, adult
CPT/HCPCS: 70450; 80053; 80306; 81000; 82805; 82947; 85025; 93005; 99285; G0480 ×3; 36415; 80320; 80329

== ENCOUNTER 2022-07-04 15:17 | Inpatient (IN) | payer MEDICARE, MEDICAID ==
[~2022-07-04] VITALS: Ht 177.8 cm; Wt 130.0 kg
[~2022-07-04 15:17] MED LIST changes: +ALBU8.5H6 IH; -ETAN50PE SQ; +ETAN50PE3 SQ
[2022-07-04] MEDS ORDERED: NS IV 1000 ML 1,000 ML IV ONE (16:00)
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
[2022-07-04 16:11] LABS: BASOPHILS # (AUTO) 0.1 10^3/uL (0.0-0.1); BASOPHILS % (AUTO) 1 % (0-10); EOSINOPHILS # (AUTO) 0.4 10^3/uL (0.0-0.3); EOSINOPHILS % (AUTO) 4 % (0-10); HEMATOCRIT 45 % (40-54); HEMOGLOBIN 14.7 g/dL (13.3-17.7); LYMPHOCYTES # (AUTO) 2.1 X 10^3 (1.0-4.0); LYMPHOCYTES % (AUTO) 18 % (12-44); MEAN CORPUSCULAR HEMOGLOBIN 30 pg (25-34); MEAN CORPUSCULAR HGB CONC 33 g/dL (32-36); MEAN CORPUSCULAR VOLUME 91 fL (80-99); MEAN PLATELET VOLUME 10.9 fL (9.0-12.2); MONOCYTES # (AUTO) 1.4 X 10^3 (0.0-1.0); MONOCYTES % (AUTO) 12 % (0-12); NEUTROPHILS # (AUTO) 7.8 X 10^3 (1.8-7.8); NEUTROPHILS % (AUTO) 65 % (42-75); PLATELET COUNT 242 10^3/uL (130-400); WHITE BLOOD COUNT 11.9 10^3/uL (4.3-11.0)
[2022-07-04 16:20] LABS: ALBUMIN 3.4 GM/DL (3.2-4.5); CHLORIDE 102 MMOL/L (98-107); POTASSIUM 3.7 MMOL/L (3.6-5.0); SODIUM 137 MMOL/L (135-145)
[2022-07-04 16:22] LABS: CALCIUM 11.6 MG/DL (8.5-10.1)
[2022-07-04 16:22] LABS: BILIRUBIN,URINE 2+ (NEGATIVE); CLARITY,URINE TURBID; COLOR,URINE YELLOW; GLUCOSE, URINE (UA) 2+ (NEGATIVE); KETONES,URINE NEGATIVE (NEGATIVE); LEUKOCYTE ESTERASE ,URINE NEGATIVE (NEGATIVE); NITRITE,URINE NEGATIVE (NEGATIVE); PH,URINE 5.5 (5-9); PROTEIN,URINE 2+ (NEGATIVE)
[2022-07-04 16:23] LABS: GLUCOSE 255 MG/DL (70-105); TOTAL PROTEIN 6.6 GM/DL (6.4-8.2)
[2022-07-04 16:24] LABS: CARBON DIOXIDE 25 MMOL/L (21-32)
[2022-07-04 16:25] LABS: BILIRUBIN,TOTAL 1.2 MG/DL (0.1-1.0); PROTHROMBIN TIME PATIENT 13.5 SEC (12.2-14.7)
[2022-07-04 16:26] LABS: ALKALINE PHOSPHATASE 70 U/L (40-136)
[2022-07-04 16:27] LABS: CREATININE SERUM 1.29 MG/DL (0.60-1.30); GFR ESTIMATED 65
[2022-07-04 16:28] LABS: BUN/CREATININE RATIO 7
[2022-07-04 16:29] LABS: ALANINE AMINOTRANSFERASE 43 U/L (0-55); MAGNESIUM 1.4 MG/DL (1.6-2.4)
--- NOTE | 2022-07-04 16:38 | Diagnostic Imaging Report ---
CLINICAL INDICATIONS: Patient has history of UTIs and has been septic in the past. Patient lethargic with cough. Patient on home oxygen. EXAM: Portable chest x-ray upright view. COMPARISON: Chest x-ray dated 11/26/2020. FINDINGS: Lungs/pleura: Stable atelectasis versus scarring in the left lower lung field region. Otherwise, lungs are clear. There is no pneumothorax. There is no pleural effusion. Mediastinum: Unremarkable. Pulmonary vasculature: Unremarkable. Heart: Stable cardiomegaly. Bones/extrathoracic soft tissue: Unremarkable. IMPRESSION: There is no radiographic evidence of acute cardiopulmonary process. Dictated by: Dictated on workstation # [id number]
[2022-07-04 16:44] LABS: BACTERIA,URINE FEW /HPF
[2022-07-04 16:44] LABS: ABG BASE EXCESS 2.7 MMOL/L (-2.5-2.5); ABG OXYGEN SATURATION 93 % (94-100); ABG PO2 66 MMHG (79-93); ABG TCO2 31.8 MMOL/L (21.0-31.0)
[2022-07-04 16:46] LABS: ABG PCO2 72 MMHG (35-45); ABG PH 7.24 (7.37-7.43); ALLENS TEST POSITIVE; INSPIRED O2 2 L; PATIENT TEMP 36.8; VENTILATOR NO
[2022-07-04 17:17] VITALS: BP 136/115
[2022-07-04] MEDS ORDERED: NS IV 1000 ML 1,000 ML IV SCH (18:30)
[2022-07-04] MEDS ORDERED: NS IV 500 ML 500 ML IV PRN (18:45)
[2022-07-04 18:51] VITALS: BP 124/88
[2022-07-04] MEDS ORDERED: METO50TA15 PO (18:51)
[2022-07-04] MEDS ORDERED: RT-ALBUTEROL/IPRATROPIUM 3 ML (DUONEB) VIAL INH PRN (19:00)
[2022-07-04 19:21] VITALS: BP 143/82
[2022-07-04] MEDS: RT-ALBUTEROL/IPRATROPIUM 3 ML (DUONEB) VIAL INH SCH (19:23)
[2022-07-04] MEDS: oxyCODONE ER 40 MG (oxyCONTIN CR) TAB PO SCH (22:12)
[2022-07-04 22:28] VITALS: BP 143/82
[2022-07-05] MEDS: inSUlin ASPART (NovoLOG) 1 UNIT/0.01 ML (CHARGE PER UNIT) SC SCH ×5 (01:08→21:04)
[2022-07-05] MEDS: NS IV 1000 ML 1,000 ML IV SCH ×3 (02:16→19:08)
[2022-07-05 05:45] LABS: ABG BASE EXCESS 0.7 MMOL/L (-2.5-2.5); ABG OXYGEN SATURATION 98 % (94-100); ABG PCO2 64 MMHG (35-45); ABG PO2 88 MMHG (79-93); ABG TCO2 29.3 MMOL/L (21.0-31.0)
[2022-07-05 05:52] LABS: BASOPHILS # (AUTO) 0.1 10^3/uL (0.0-0.1); BASOPHILS % (AUTO) 1 % (0-10); EOSINOPHILS # (AUTO) 0.4 10^3/uL (0.0-0.3); EOSINOPHILS % (AUTO) 4 % (0-10); HEMATOCRIT 42 % (40-54); HEMOGLOBIN 14.1 g/dL (13.3-17.7); LYMPHOCYTES % (AUTO) 18 % (12-44); MEAN CORPUSCULAR HEMOGLOBIN 30 pg (25-34); MEAN CORPUSCULAR HGB CONC 34 g/dL (32-36); MEAN CORPUSCULAR VOLUME 90 fL (80-99); MEAN PLATELET VOLUME 11.5 fL (9.0-12.2); MONOCYTES # (AUTO) 1.5 10^3/uL (0.0-1.0); MONOCYTES % (AUTO) 14 % (0-12); NEUTROPHILS % (AUTO) 63 % (42-75); PLATELET COUNT 198 10^3/uL (130-400); WHITE BLOOD COUNT 11.1 10^3/uL (4.3-11.0)
[2022-07-05 05:58] LABS: ABG PH 7.25 (7.37-7.43); ALLENS TEST YES-POS; PATIENT TEMP 36.5; VENTILATOR NO
[2022-07-05 06:00] LABS: SMEAR SCAN COMMENT YES
[2022-07-05 06:17] LABS: CALCIUM 10.6 MG/DL (8.5-10.1); CREATININE SERUM 1.19 MG/DL (0.60-1.30); MAGNESIUM 1.4 MG/DL (1.6-2.4); PHOSPHORUS 2.3 MG/DL (2.3-4.7); POTASSIUM 3.9 MMOL/L (3.6-5.0)
[2022-07-05] MEDS: POTASSIUM CL 10MEQ/50ML IVPB 50 ML IV SCH (06:30)
[2022-07-05] MEDS: KCL 20 MEQ TAB (K-DUR) PO SCH (06:31)
[2022-07-05] MEDS: MAGNESIUM 1 GM/100 ML IVPB 100 ML IV SCH ×5 (06:31→10:37)
[2022-07-05 07:18] VITALS: BP 124/76
[2022-07-05] MEDS: RT-ALBUTEROL/IPRATROPIUM 3 ML (DUONEB) VIAL INH SCH ×4 (07:18→20:07)
[2022-07-05] MEDS: GABAPENTIN 400 MG (NEURONTIN) CAP PO SCH ×3 (07:45→21:04)
[2022-07-05] MEDS: oxyCODONE ER 40 MG (oxyCONTIN CR) TAB PO SCH ×2 (07:45→21:59)
[2022-07-05] MEDS ORDERED: MAGNESIUM 1 GM/100 ML IVPB 100 ML IV SCH (08:15)
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
--- NOTE | 2022-07-05 08:27 | Tele-ICU Consult ---
History of Present Illness History of Present Illness Date Seen by Provider: Jul 05, 2022 Time Seen by Provider: 08:27 History of Present Illness (Tele-ICU Physician , consultation as per request of PCP Service provided via interactive audio and video telecommunications E-CARE system to a patient admitted to ICU bed in [facility]. Available chart/ vitals / labs / Images reviewed H&P is from ER notes Patient's information available about PMH, Shx, Fhx allergy reviewed inEMR. ROS as per chart and RN report Now in ICU, hemodynamically stable Video assessment done using teleICU camera, rest of exam as per RN Discussed with RN. He is a 56-year-old male with past medical history of moderately severe obesity with a obese abdomen and COPD on home oxygen he apparently has his oxygen disconnected accidentally and his oxygen saturation went down to 60s subsequently EMS was called who reconnected his oxygen and oxygen saturations improved however patient is confused and lethargic hence he was admitted to the emergency room and found to have a cellulitis of the leg and he is also found to have a decrease in urination for the last 2 days. Reportedly had a history of chronic pain disorder treated with narcotics. He has a CO2 retention with respiratory acidosis hence he is put on a BiPAP ventilation so far he is tolerating well. Unable to give any detailed history at this time. Allergies and Home Medications Allergies Coded Allergies: hydrocodone (Verified Allergy, Unknown, TAKES OXYCODONE AT HOME, 05/05/16) STATES IS NOT ALLERGIC TO THIS MED latex (Verified Allergy, Unknown, 05/05/16) Home Medications Albuterol Sulfate 8.5 Gm Hfa.aer.ad, 2 PUFF IH QID PRN for SHORTNESS OF BREATH, (Reported) Alprazolam 1 Mg Tablet, 1 MG PO BID PRN for ANXIETY, (Reported) Gabapentin 800 Mg Tablet, 800 MG PO TID, (Reported) TAKES 800MG AND 100MG TO EQUAL 900MG FOR EACH DOSE Insulin Detemir 100 Unit/1 Ml Insuln.pen, 40 UNIT SQ HS, (Reported) Insulin Lispro 100 Unit/1 Ml Insuln.pen, UNITS SQ AC, (Reported) USES PER SLIDING SCALE Lisinopril 20 Mg Tablet, 40 MG PO DAILY Prescribed by: MATILDA CRAWFORD on 09/20/20 1152 Metoprolol Tartrate 50 Mg Tablet, 50 MG PO BID, (Reported) Mometasone/Formoterol 13 Gm Hfa.aer.ad, 1 PUFF INH BID, (Reported) Oxycodone HCl 30 Mg Tablet, 30 MG PO Q4 -6H PRN for BREAKTHROUGH PAIN, (Reported) Oxycodone HCl 80 Mg Tab.er.12h, 80 MG PO Q8H, (Reported) Prednisone 20 Mg Tab, 20 MG PO DAILY, (Reported) Promethazine HCl 25 Mg Tablet, 25 MG PO BID PRN for NAUSEA/VOMITING-2ND LINE, (Reported) Past Medical/Social/Family Hx Patient Social History Tobacco Use?: Yes Tobacco type used: Cigarettes Smoking Status: Current Everyday Smoker Smokeless Tobacco Frequency: Never a User Use of E-Cig and/or Vaping dev: No Additional E-Cig or Vaping: TRYING TO QUIT SMOKING- CURRENTLY SMOKES ABOUT 1-2 CIG/DAY E-Cig and/or Vaping Freq: Never a User Substance use?: No Alcohol Use?: No Pt stated abuse/neglect: No Immunizations Up To Date Influenza Vaccine Up-to-Date: No; Not Current Second COVID19 Vaccination Jaden: YES Tetanus Booster (TDap): Unknown Date of Pneumonia Vaccine: Nov 12, 2012 Current Status Advance Directives: No Communicates: Verbally Primary Language: Ghanaian Preferred Spoken Language: Ghanaian Is interpretation needed?: No Implanted or Applied Medical D: None Past Medical History PMHx: Mononeuritis multiplex Rheumatoid arthritis Hepatitis C Diabetes mellitus HTN SurgHx: Liver biopsy Back surgery Review of Systems Constitutional: see HPI, weakness Focused Exam Lactate Level 07/04/22 16:00: Lactic Acid Level 1.57 Height, Weight, BMI Height: 6'0.00" Weight: 306lbs. 0.0oz. 138.054923hd; 37.57 BMI Method:Stated Exam Exam Patient acknowledged, consented, and participated in this virtual visit which was conducted using real time audio/video Vital Signs Date Time Temp Pulse Resp B/P (MAP) Pulse Ox O2 Delivery O2 Flow Rate FiO2 07/05/22 08:00 101 10 123/75 (91) 95 NIV Bilevel 40.00 07/05/22 07:49 36.1 07/05/22 07:18 96 19 96 40.00 07/05/22 07:00 96 07/05/22 07:00 95 16 128/74 (92) 96 NIV Bilevel 40.00 07/05/22 06:00 96 15 125/70 (88) 96 NIV Bilevel 40.00 07/05/22 05:00 92 30 143/81 (101) 96 NIV Bilevel 40.00 07/05/22 04:00 97 NIV Bilevel 50 07/05/22 04:00 91 27 120/78 (92) 96 NIV Bilevel 40.00 07/05/22 03:00 90 21 137/77 (97) 97 NIV Bilevel 40.00 07/05/22 02:34 90 16 97 40.00 07/05/22 02:00 91 16 133/83 (100) 98 NIV Bilevel 40.00 07/05/22 01:00 90 10 158/85 (109) 97 NIV Bilevel 40.00 07/05/22 00:43 88 07/05/22 00:00 86 12 153/92 (112) 97 NIV Bilevel 40.00 07/04/22 23:31 97 NIV Bilevel 50 07/04/22 23:00 83 16 154/84 (107) 96 NIV Bilevel 40.00 07/04/22 22:46 NIV Bilevel 40.00 07/04/22 22:28 88 16 98 40.00 07/04/22 22:00 84 16 153/89 (110) 98 NIV Bilevel 50.00 07/04/22 21:00 82 20 141/87 (105) 98 NIV Bilevel 50.00 07/04/22 20:00 85 16 149/81 (103) 98 NIV Bilevel 50.00 07/04/22 19:58 97 NIV Bilevel 50 07/04/22 19:21 77 16 98 50.00 07/04/22 19:00 73 17 133/83 (100) 100 NIV Bilevel 50.00 07/04/22 19:00 74 07/04/22 18:51 36.8 76 96 55 07/04/22 18:45 36.3 77 30 100 NIV Bilevel 50.00 07/04/22 18:45 77 07/04/22 18:30 126/105 (112) NIV Bilevel 50.00 07/04/22 18:20 76 16 144/89 96 NIV Bilevel 55.00 11/17/22 17:17 82 17 30.00 11/17/22 15:50 94 Nasal Cannula 2.00 07/04/22 15:25 36.8 88 20 124/88 (100) 99 Nasal Cannula 2.00 I & O 07/05/22 07:00 Intake Total 1100 ml Output Total 335 ml Balance 765 ml Height & Weight Height: 6'0.00" Weight: 306lbs. 0.0oz. 138.351329yn; 37.57 BMI Method:Stated General Appearance: No Apparent Distress, Obese HEENT: PERRL/EOMI, Other (Mucous membranes very dry) Neck: Non Tender, Supple Respiratory: Lungs Clear, Normal Breath Sounds Cardiovascular: Regular Rate, Rhythm, No Murmur Capillary Refill: Less Than 3 Seconds Extremity: Pedal Edema, Other (Tenderness of bilateral legs but worse on right near area of redness and old scar area.) Neurologic/Psychiatric: Other (Awake and answer simple questions and follow simple commands but seems quite drowsy and sluggish and may be a little confused. He is oriented to self and son and place.) Other comments PE PER RN Results Lab Laboratory Tests 07/04/22 16:00 07/05/22 03:00 07/05/22 03:22 Assessment/Plan Assessment/Plan 1. Acute on chronic hypercarbic respiratory failure due to possible underlying COPD with possible sleep apnea compounded by narcotic administration. 2. Moderate obesity with abdominal obesity predominant causing decreased diaphragmatic excursions. 3. History of rheumatoid arthritis 4. Possible cellulitis of the leg 5. Hepatitis C 6. Hypertension 7. Diabetes mellitus type 2 uncontrolled. Recommendations 1. Continue BiPAP ventilation and monitor blood gases. 2. Bronchodilator therapy 3. Antibiotic therapy per primary care service 4. DVT prophylaxis and ulcer prophylaxis. 5. Physical therapy and Occupational Therapy. Care in coordination with bedside physicians and consultants. Critical care time spent 20 minutes. Critical Care: Critically Ill Patient (20) Time spent with patient (mins): 20 PAOLO NOLASCO MD Jul 05, 2022 08:27
[2022-07-05] MEDS ORDERED: ALPRAZolam 1 MG (XANAX) TAB ONE (09:06)
[2022-07-05] MEDS: ALPRAZolam 1 MG (XANAX) TAB PO PRN (09:07)
[2022-07-05 10:37] VITALS: BP 140/77
[2022-07-05] MEDS ORDERED: RT-ALBUTEROL/IPRATROPIUM 3 ML (DUONEB) VIAL INH PRN (12:00)
[2022-07-05] MEDS ORDERED: amLODIPine 5 MG (NORVASC) TAB PO NR (14:00)
[2022-07-05] MEDS ORDERED: lisINopril 20 MG (PRINIVIL) TABLET PO NR (14:30)
[2022-07-05] MEDS: cefTRIAXone 1 GM PRE-MIX 50 ML IV SCH (15:06)
[2022-07-05] MEDS ORDERED: AMLO-250 PO (15:32)
[2022-07-05] MEDS ORDERED: ROSU40TA23 PO (15:32)
[2022-07-05] MEDS ORDERED: DULO60CA59 PO (15:32)
[2022-07-05] MEDS ORDERED: LISI20TA26 PO (15:32)
[2022-07-05] MEDS ORDERED: INSU100I29 SQ (15:32)
[2022-07-05] MEDS ORDERED: [UNRECOGNIZED DRUG - CODE] MC (15:32)
[2022-07-05] MEDS ORDERED: CLOT15CR6 TP (15:32)
[2022-07-05] MEDS ORDERED: KETO15CR2 TP (15:36)
[2022-07-05] MEDS ORDERED: METO-333 PO (15:40)
[2022-07-05] MEDS ORDERED: PROMETHAZINE 25 MG (PHENERGAN) TAB PO PRN (15:45)
[2022-07-05] MEDS ORDERED: ENOXAPARIN 40 MG/0.4 ML (LOVENOX) SYR SQ SCH (16:00)
[2022-07-05] MEDS ORDERED: meTOprolol TARTRATE 25 MG (LOPRESSOR) TABLET ONE (16:07)
[2022-07-05] MEDS ORDERED: ACETAMINOPHEN 325 MG TABLET ONE (16:08)
[2022-07-05] MEDS ORDERED: ACETAMINOPHEN 325 MG TABLET PO PRN (16:15)
[2022-07-05] MEDS: meTOprolol TARTRATE 25 MG (LOPRESSOR) TABLET PO PRN (16:26)
[2022-07-05 18:08] LABS: ABG BASE EXCESS -0.2 MMOL/L (-2.5-2.5); ABG OXYGEN SATURATION 96 % (94-100); ABG PCO2 59 MMHG (35-45); ABG PO2 74 MMHG (79-93); ABG TCO2 27.7 MMOL/L (21.0-31.0)
[2022-07-05 18:09] LABS: ABG PH 7.27 (7.37-7.43); ALLENS TEST POSITIVE
[2022-07-05 18:10] LABS: INSPIRED O2 4 L; PATIENT TEMP 37.3; VENTILATOR NO
[2022-07-05] MEDS: RT--FLUTICASONE/SALMETEROL 113-14 (AIRDUO RespiCLICK) IH SCH (20:08)
[2022-07-05] MEDS ORDERED: [UNRECOGNIZED DRUG - OTHER] INH SCH (21:00)
[2022-07-05] MEDS ORDERED: MOMETASONE INH SCH (21:00)
[2022-07-05] MEDS ORDERED: FORMOTEROL INH SCH (21:00)
[2022-07-05] MEDS: lisINopril 20 MG (PRINIVIL) TABLET PO SCH (21:05)
[2022-07-05] MEDS: KETOCONAZOLE 2% CREAM 15 GM (NIZORAL) TP SCH (21:08)
[2022-07-05] MEDS: BETAMETHASONE/CLOTRIM CREAM (LOTRISONE) 45 GM TP SCH (21:08)
[2022-07-05 23:25] VITALS: BP 135/77
[2022-07-06] MEDS: NS IV 1000 ML 1,000 ML IV SCH ×3 (04:11→19:25)
[2022-07-06 05:36] LABS: ABG BASE EXCESS -0.1 MMOL/L (-2.5-2.5); ABG OXYGEN SATURATION 96 % (94-100); ABG PCO2 54 MMHG (35-45); ABG PO2 72 MMHG (79-93); ABG TCO2 27.1 MMOL/L (21.0-31.0)
[2022-07-06 05:40] LABS: ALLENS TEST YES-POS
[2022-07-06 05:41] LABS: INSPIRED O2 4L; PATIENT TEMP 37.3; VENTILATOR NO
[2022-07-06 06:22] LABS: BASOPHILS # (AUTO) 0.1 10^3/uL (0.0-0.1); BASOPHILS % (AUTO) 1 % (0-10); EOSINOPHILS # (AUTO) 0.3 10^3/uL (0.0-0.3); EOSINOPHILS % (AUTO) 3 % (0-10); HEMATOCRIT 39 % (40-54); LYMPHOCYTES # (AUTO) 1.2 10^3/uL (1.0-4.0); LYMPHOCYTES % (AUTO) 14 % (12-44); MEAN CORPUSCULAR HEMOGLOBIN 30 pg (25-34); MEAN CORPUSCULAR HGB CONC 33 g/dL (32-36); MEAN CORPUSCULAR VOLUME 91 fL (80-99); MEAN PLATELET VOLUME 10.5 fL (9.0-12.2); MONOCYTES # (AUTO) 0.9 10^3/uL (0.0-1.0); MONOCYTES % (AUTO) 10 % (0-12); NEUTROPHILS # (AUTO) 6.3 10^3/uL (1.8-7.8); NEUTROPHILS % (AUTO) 72 % (42-75); PLATELET COUNT 166 10^3/uL (130-400); WHITE BLOOD COUNT 8.8 10^3/uL (4.3-11.0)
[2022-07-06 06:32] LABS: ALBUMIN 2.7 GM/DL (3.2-4.5); POTASSIUM 3.5 MMOL/L (3.6-5.0)
[2022-07-06 06:33] LABS: CALCIUM 10.3 MG/DL (8.5-10.1)
[2022-07-06 06:34] LABS: TOTAL PROTEIN 5.5 GM/DL (6.4-8.2)
[2022-07-06 06:36] LABS: BILIRUBIN,TOTAL 1.2 MG/DL (0.1-1.0)
[2022-07-06 06:38] LABS: PHOSPHORUS 1.5 MG/DL (2.3-4.7)
[2022-07-06 06:41] LABS: MAGNESIUM 1.6 MG/DL (1.6-2.4)
--- NOTE | 2022-07-06 06:49 | Occ Therapy Progress Note ---
Therapy Progress Note Chart reviewed by NORMA/L and per report from PT. OTR/L to lyndsay pt 07/08/2022. KENNEDY MENDOZA Jul 06, 2022 06:49
[2022-07-06] MEDS: RT--FLUTICASONE/SALMETEROL 113-14 (AIRDUO RespiCLICK) IH SCH ×2 (07:05→21:13)
[2022-07-06] MEDS: RT-ALBUTEROL/IPRATROPIUM 3 ML (DUONEB) VIAL INH SCH ×4 (07:05→19:10)
[2022-07-06] MEDS ORDERED: KCL 20 MEQ TAB (K-DUR) PO ONE (07:15)
[2022-07-06] MEDS: MAGNESIUM 1 GM/100 ML IVPB 100 ML IV SCH ×5 (07:16→10:28)
[2022-07-06] MEDS: inSUlin ASPART (NovoLOG) 1 UNIT/0.01 ML (CHARGE PER UNIT) SC SCH ×4 (07:16→20:58)
[2022-07-06] MEDS: KCL 20 MEQ TAB (K-DUR) PO SCH (07:16)
[2022-07-06] MEDS: POTASSIUM CL 10MEQ/50ML IVPB 50 ML IV SCH (07:16)
[2022-07-06] MEDS: ENOXAPARIN 40 MG/0.4 ML (LOVENOX) SYR SQ SCH ×2 (08:02→20:58)
[2022-07-06] MEDS: PANTOPRAZOLE 20 MG TABLET (PROTONIX) PO SCH (08:03)
[2022-07-06] MEDS: DULoxetine 30 MG (CYMBALTA) CAP PO SCH (08:03)
[2022-07-06] MEDS: lisINopril 20 MG (PRINIVIL) TABLET PO SCH ×2 (08:03→20:58)
[2022-07-06] MEDS: oxyCODONE ER 40 MG (oxyCONTIN CR) TAB PO SCH ×2 (08:03→21:00)
[2022-07-06] MEDS: predniSONE 20 MG TAB PO SCH (08:03)
[2022-07-06] MEDS: ROSUVASTATIN 20 MG (CRESTOR) TABLET PO SCH (08:04)
[2022-07-06] MEDS: GABAPENTIN 400 MG (NEURONTIN) CAP PO SCH ×3 (08:04→20:58)
[2022-07-06] MEDS: KETOCONAZOLE 2% CREAM 15 GM (NIZORAL) TP SCH ×2 (08:04→20:59)
[2022-07-06] MEDS: BETAMETHASONE/CLOTRIM CREAM (LOTRISONE) 45 GM TP SCH ×3 (08:05→20:59)
--- NOTE | 2022-07-06 08:17 | Physical Therapy Evaluation ---
PT Evaluation-General Medical Diagnosis Admission Date Jul 04, 2022 at 17:50 Medical Diagnosis: hypoxia, AMS Onset Date: Jul 04, 2022 Therapy Diagnosis Therapy Diagnosis: impaired mobility, strength Height/Weight Height (Feet): 6 Height (Inches): 0.00 Weight (Pounds): 306 Weight (Ounces): 0.0 Precautions Precautions/Isolations: Fall Prevention, Standard Precautions Referral Physician: Kyrie Reason for Referral: Evaluation/Treatment Medical History Pertinent Medical History: COPD, DM, HTN, Neuropathy, PVD, Renal Insufficiency, Rheumatoid Arthritis, Smoking Additional Medical History Past Medical History Surgery/Hospitalization HX: RA, NEUROPATHY, VASCULITIS, SKIN GRAPH FROM LANCE ON RT LEG, MONONEUROTISMULTIPLEX, DIABETIC TYPE II, COPD, HX OF UTI'S AND SEPSIS Surgeries: Yes Abdominal, Cardiac, Orthopedic Respiratory: Yes Pneumonia, COPD Currently Using CPAP: Yes Currently Using BIPAP: Yes Cardiac: Yes Chronic Edema/Swelling, Hypertension, Peripheral Vascular Neurological: Yes (MONO NEURITIS; NEUROPATHY--WHEELCHAIR BOUND) Headaches /Migraines, Neuropathy Reproductive Disorders: No Sexually Transmitted Disease: No HIV/AIDS: No Genitourinary: Yes Bladder Infection, Kidney Stones, Renal Failure, UTI-Chronic Gastrointestinal: Yes (HEPATITIS C--NO TREATMENT. BILARY STENT) Gastroesophageal Reflux, Liver Disease/Jaundice, Hepatitis, Gall Bladder Disease Musculoskeletal: Yes Degenerate Disk Disease, Arthritis, Rheumatoid Arthritis, Chronic Back Pain Endocrine: Yes (MORBID OBESITY; ELEVATED URIC ACID) Diabetes, Insulin dep HEENT: No Loss of Vision: Denies Hearing Impairment: Denies Cancer: No Psychosocial: Yes Sleep Difficulties, Anxiety, Depression Integumentary: Yes Blood Disorders: No Reviewed History: Yes Social History Home: Single Level Current Living Status: Other Family (lives with mother) Entry Into Home: Ramp Prior Prior Level of Function SCALE: Activities may be completed with or without assistive devices. 7-Zlvotdbtea-lnyhuwb completes the activity by him/herself with no assistance from a helper. 5-Set-up or Clean-up Assistance-helper sets up or cleans up; patient completes activity. Quinn assists only prior to or following the activity. 4-Supervision or Touching Assistance-helper provides verbal cues and/or touching/steadying and/or contact guard assistance as patient completes activity. Assistance may be provided throughout the activity or intermittently. 3-Partial/Moderate Assistance-helper does LESS THAN HALF the effort. Quinn lifts, holds or supports trunk or limbs, but provides less than half the effort. 2-Substantial/Maximal Assistance-helper does MORE THAN HALF the effort. Quinn lifts or holds trunk or limbs and provides more than half the effort. 3-Ptuzirimm-fcryil does ALL the effort. Patient does none of the effort to complete the activity. Or, the assistance of 2 or more helpers is required for the patient to complete the activity. If activity was not attempted, code reason: 7-Patient Refused. 9-Not Applicable-not attempted and the patient did not perform the activity before the current illness, exacerbation or injury. 10-Not Attempted due to Environmental Limitations-(lack of equipment, weather restraints, etc.). 88-Not Attempted due to Medical Conditions or Safety Concerns. Bed Mobility: 3 Transfers (B,C,W/C): 3 Prior Devices Use: Motorized wheelchair PT Evaluation-Current Subjective Patient in bed pre tx, agrees to PT, has 7/10 pain in legs. Patient doesn't ambulate or stand, usually transfers to a power chair at home to get around but patient states he spends most of the time in bed. Pt/Family Goals none stated Objective Patient Orientation: Person, Place, Situation Attachments: Oxygen, Montoya Catheter, IV ROM/Strength ROM Lower Extremities limited due to pain Strength Lower Extremities grossly 3-/5 except for dorsiflexion 0/5 Sensory Hearing: Functional Sensation Right Lower Extremit: Impaired Sensation Left Lower Extremity: Impaired Treatment Patient agrees to exercises in bed, he doesn't have a WC here to get into. Performed 20 reps of HS, GS, QS, hip abd/add, shoulder flexion, crunches Assessment/Needs Patient in bed pos tx with nurse call, phone, tray, all needs met. Patient has impaired mobility, strength, endurance. Limited ROM in BLE. Rehab Potential: Poor PT Liaison Planner Goals Mcfp Goals PT Liaison Planner Goals Time Frame: Jul 13, 2022 Roll Left & Right (QC): 3 Sit to Lying (QC): 3 Lying-Sitting on Side/Bed(QC): 3 Chair/Igy-ip-Bkzth Xfer(QC): 3 PT Plan Problem List Problem List: Activity Tolerance, Functional Strength, Safety, Balance, Transfer, Bed Mobility, ROM Treatment/Plan Treatment Plan: Continue Plan of Care Treatment Plan: Bed Mobility, Education, Functional Activity Adina, Functional Strength, Safety, Therapeutic Exercise, Transfers Treatment Duration: Jul 13, 2022 Frequency: 6 times per week Estimated Hrs Per Day: .25 hour per day Patient and/or Family Agrees t: Yes Safety Risks/Education Patient Education: Correct Positioning, Safety Issues Teaching Recipient: Patient Teaching Methods: Demonstration, Discussion Response to Teaching: Reinforcement Needed Time Time In: 0749 Time Out: 0800 DATE: Jul 06, 2022 Total Billed Treatment Time: 11 Total Billed Treatment 1 visit JUAN CHAVEZ PT Jul 06, 2022 08:17
[2022-07-06] MEDS ORDERED: NON-FORMULARY MEDICATION 1 EA EA (Duloxetine HCl 60 MG) PO SCH (09:00)
[2022-07-06] MEDS ORDERED: NON-FORMULARY MEDICATION 1 EA EA (Rosuvastatin Calcium 40 MG) PO SCH (09:00)
[2022-07-06] MEDS ORDERED: lisINopril 20 MG (PRINIVIL) TABLET PO SCH (09:00)
[2022-07-06] MEDS ORDERED: POTASSIUM PHOSPHATE INJ 30 MM in NS (IVPB) 250 ML IV ONE (09:00)
--- NOTE | 2022-07-06 09:30 | Progress Note - Hospitalist ---
Subjective HPI/CC On Admission Date Seen by Provider: Jul 06, 2022 Patient is a 56-year-old male known to me from previous admissions who presented to the emergency department due to altered mental status and hypoxia. Apparently he had an episode of hypoxia when his oxygen tubing came off in the middle of the night and he had sats to the 60s. EMS was summoned at that time and corrected his tubing and had improvement in his oxygen saturation. Despite that he remained confused and lethargic throughout the day prompting him to seek evaluation in the emergency department. He also complained of lower extremity edema which she does have at baseline but he said his right side is worse than normal. He does have a history of a skin graft there. He was admitted on BiPAP for hypercapnic respiratory failure and this morning he reports feeling much better and his mentation is improving. There is no family at bedside. Subjective/Events-last exam Pt reports feeling better today. Complains of soreness on his nose from the BiPAP. Requesting to DC or at least not wear the BiPAP anymore. Informed patient that my recommendation is to stay and comply with BiPAP as he still has a high CO2. Momis at bedside and is in agreement with staying. Patient states he will think about it. He has no other complaints. Eating well. Pain controlled even on lower than normal dose. Discussed reasoning with patient and mother behind decreased dose but informed patient to let us know if he has increasing pain and we can adjust regimen if respiratory status satisfactory. Focused Exam Lactate Level 07/04/22 16:00: Lactic Acid Level 1.57 Objective Exam Vital Signs Vital Signs Date Time Temp Pulse Resp B/P (MAP) Pulse Ox O2 Delivery O2 Flow Rate FiO2 07/06/22 09:00 98 10 143/87 (105) 94 Nasal Cannula 4.00 07/06/22 08:11 36.8 07/06/22 04:09 40 Capillary Refill : Less Than 3 Seconds General Appearance: No Apparent Distress, Chronically ill HEENT: Other (some skin breakdown on nasal bridge) Respiratory: Lungs Clear, No Respiratory Distress Cardiovascular: Regular Rate, Rhythm, No Murmur Gastrointestinal: Normal Bowel Sounds, Non Tender, Soft Genital/Rectal: Other (villalobos) Extremity: Pedal Edema, Swelling Neurologic/Psychiatric: Alert, Oriented x3, Normal Mood/Affect Results/Procedures Lab Laboratory Tests 11/19/22 06:13 Patient resulted labs reviewed. Imaging: Reviewed Imaging Report Assessment/Plan Assessment and Plan Assess & Plan/Chief Complaint Acute on chronic hypercapnic respiratory failure Has been on BiPAP overnight and respiratory acidosis improving but still CO2 of 54 with pH of 7.3 Currently on 4lpm Baseline 2-3lpm NC MAT protocol TeleICU consulted Continue AirDuo Cellulitis Rocephin HTN BP improved Continue current regimen IDDMII SSI Oral intake improving but fasting BS 156 this AM If oral intake continues will add Levemir at night RA Chronic narcotic use Continue current pain regimen DVT ppx: Lovenox Critical Care Critically Ill Patient (20) SUSAN SOSA MD Jul 06, 2022 9:30 am
--- NOTE | 2022-07-06 12:08 | Tele-ICU Progress Note ---
Subjective Date Seen by a Provider: Jul 06, 2022 Time Seen by a Provider: 08:30 Subjective/Events-last exam (Tele-ICU Physician , consultation) Available chart/ vitals / labs / Images reviewed H&P is from ER notes Patient's information available about PMH, allergy reviewed in EMR. ROS as per chart and RN report Video assessment done using teleICU camera, rest of exam as per RN Discussed with RN. Patient today is awake alert and on 4 L of nasal cannula. Yesterday I did speak to the family via the video visit and answered many of their questions. Patient apparently has been on high-dose opioids for chronic pain for about 10 years and they are not considering decreasing any dose because he gets pain severely. But I explained that these opioids are probably contributing to his CO2 retention in addition to his obesity and possible sleep apnea. Today CO2 is decreasing and he is in no acute distress on nasal cannula patient probably will benefit from a home BiPAP ventilation upon discharge due to his multiple problems. Sepsis Event Evaluation Height, Weight, BMI Height: 6'0.00" Weight: 306lbs. 0.0oz. 138.420495hf; 40.52 BMI Method:Stated Focused Exam Lactate Level 07/04/22 16:00: Lactic Acid Level 1.57 Exam Exam Patient acknowledged, consented, and participated in this virtual visit which was conducted using real time audio/video Vital Signs Date Time Temp Pulse Resp B/P (MAP) Pulse Ox O2 Delivery O2 Flow Rate FiO2 07/06/22 11:49 36.3 07/06/22 11:04 94 Nasal Cannula 4.00 07/06/22 11:00 103 15 139/74 (95) 94 Nasal Cannula 4.00 07/06/22 10:00 101 23 137/78 (97) 93 Nasal Cannula 4.00 07/06/22 09:00 98 10 143/87 (105) 94 Nasal Cannula 4.00 07/06/22 08:11 36.8 07/06/22 08:00 106 153/88 (109) 93 Nasal Cannula 4.00 07/06/22 07:48 93 Nasal Cannula 07/06/22 07:44 Nasal Cannula 4.00 07/06/22 07:05 95 Nasal Cannula 4.00 07/06/22 07:00 102 07/06/22 07:00 100 22 168/92 (117) 94 NIV Bilevel 40.00 07/06/22 06:00 98 38 94 NIV Bilevel 40.00 07/06/22 05:00 87 53 167/92 (117) 96 NIV Bilevel 40.00 07/06/22 04:09 89 NIV Bilevel 40 07/06/22 04:09 36.9 07/06/22 04:00 87 28 162/90 (114) 96 NIV Bilevel 40.00 07/06/22 03:30 NIV Bilevel 40.00 07/06/22 03:00 93 23 142/72 (95) 94 Nasal Cannula 4.00 07/06/22 02:00 94 17 144/81 (102) 94 Nasal Cannula 4.00 07/06/22 01:00 94 07/06/22 01:00 94 11 139/81 (100) 96 Nasal Cannula 4.00 07/06/22 00:36 94 Nasal Cannula 4.00 07/06/22 00:00 89 11 141/79 (99) 96 NIV Bilevel 40.00 07/06/22 00:00 37.1 07/05/22 23:25 95 22 97 40.00 07/05/22 23:00 90 17 144/75 (98) 93 NIV Bilevel 40.00 07/05/22 22:00 92 8 123/70 (87) 92 Nasal Cannula 4.00 07/05/22 21:00 92 17 119/70 (86) 93 Nasal Cannula 4.00 07/05/22 20:08 97 Nasal Cannula 4.00 07/05/22 20:00 36.8 07/05/22 20:00 88 48 112/67 (82) 93 Nasal Cannula 4.00 07/05/22 19:45 95 Nasal Cannula 4.00 07/05/22 19:00 93 49 122/68 (86) 95 Nasal Cannula 4.00 07/05/22 19:00 95 07/05/22 18:00 101 18 125/73 (90) 94 Nasal Cannula 4.00 07/05/22 17:00 129 23 112/73 (86) 90 Nasal Cannula 4.00 07/05/22 16:55 37.1 07/05/22 16:31 37.4 07/05/22 16:25 37.5 07/05/22 16:00 94 Nasal Cannula 4.00 07/05/22 16:00 131 20 90/76 (81) 94 Nasal Cannula 4.00 07/05/22 15:14 Nasal Cannula 4.00 07/05/22 15:03 96 Nasal Cannula 6.00 07/05/22 15:00 126 14 134/89 (104) 93 Nasal Cannula 6.00 07/05/22 14:00 121 17 150/82 (104) 96 NIV Bilevel 40.00 07/05/22 13:00 117 12 154/71 (98) 97 NIV Bilevel 40.00 07/05/22 12:54 113 I & O 07/06/22 07:00 Intake Total 2050 ml Output Total 700 ml Balance 1350 ml Height & Weight Height: 6'0.00" Weight: 306lbs. 0.0oz. 138.838796xl; 40.52 BMI Method:Stated General Appearance: No Apparent Distress, Chronically ill HEENT: Other (some skin breakdown on nasal bridge) Neck: Normal Inspection, Supple Respiratory: Lungs Clear, No Respiratory Distress Cardiovascular: Regular Rate, Rhythm, No Murmur Capillary Refill: Less Than 3 Seconds Extremity: Pedal Edema, Swelling Neurologic/Psychiatric: Alert, Oriented x3, Normal Mood/Affect Results Lab Laboratory Tests 07/04/22 16:00 07/05/22 03:00 07/05/22 03:22 07/06/22 06:13 Assessment/Plan Assessment/Plan 1. Acute on chronic hypercarbic respiratory failure due to possible underlying COPD with possible sleep apnea compounded by narcotic administration. improving 2. Moderate obesity with abdominal obesity predominant causing decreased diaph ragmatic excursions. 3. History of rheumatoid arthritis 4. Possible cellulitis of the leg 5. Hepatitis C 6. Hypertension 7. Diabetes mellitus type 2 uncontrolled. 8. Chronic pain syndrome on high dose opioids Recommendations 1. Continue BiPAP ventilation especially at night and monitor blood gases. 2. Bronchodilator therapy 3. Antibiotic therapy per primary care service 4. DVT prophylaxis and ulcer prophylaxis. 5. correct Electrolyte abnormalities. Critical Care: Critically Ill Patient Time spent with patient (mins): 25 PAOLO NOLASCO MD Jul 06, 2022 12:08
[2022-07-06] MEDS: cefTRIAXone 1 GM PRE-MIX 50 ML IV SCH (14:00)
[2022-07-06 21:13] VITALS: BP 144/78
[2022-07-07] MEDS: NS IV 1000 ML 1,000 ML IV SCH ×4 (01:39→18:28)
[2022-07-07 05:10] LABS: BASOPHILS % (AUTO) 1 % (0-10); EOSINOPHILS # (AUTO) 0.2 10^3/uL (0.0-0.3); EOSINOPHILS % (AUTO) 4 % (0-10); HEMATOCRIT 35 % (40-54); HEMOGLOBIN 11.7 g/dL (13.3-17.7); LYMPHOCYTES # (AUTO) 1.1 10^3/uL (1.0-4.0); LYMPHOCYTES % (AUTO) 16 % (12-44); MEAN CORPUSCULAR HEMOGLOBIN 30 pg (25-34); MEAN CORPUSCULAR HGB CONC 33 g/dL (32-36); MEAN CORPUSCULAR VOLUME 91 fL (80-99); MEAN PLATELET VOLUME 10.8 fL (9.0-12.2); MONOCYTES # (AUTO) 0.8 10^3/uL (0.0-1.0); MONOCYTES % (AUTO) 12 % (0-12); NEUTROPHILS # (AUTO) 4.5 10^3/uL (1.8-7.8); NEUTROPHILS % (AUTO) 68 % (42-75); PLATELET COUNT 171 10^3/uL (130-400); WHITE BLOOD COUNT 6.6 10^3/uL (4.3-11.0)
[2022-07-07 05:33] LABS: CALCIUM 9.9 MG/DL (8.5-10.1); CREATININE SERUM 0.83 MG/DL (0.60-1.30); MAGNESIUM 1.9 MG/DL (1.6-2.4); PHOSPHORUS 2.1 MG/DL (2.3-4.7); POTASSIUM 3.8 MMOL/L (3.6-5.0)
[2022-07-07] MEDS: inSUlin ASPART (NovoLOG) 1 UNIT/0.01 ML (CHARGE PER UNIT) SC SCH ×4 (05:46→20:13)
[2022-07-07] MEDS: MAGNESIUM 1 GM/100 ML IVPB 100 ML IV SCH (05:46)
[2022-07-07] MEDS: KCL 20 MEQ TAB (K-DUR) PO SCH (05:46)
[2022-07-07] MEDS: POTASSIUM CL 10MEQ/50ML IVPB 50 ML IV SCH (05:46)
[2022-07-07] MEDS: RT-ALBUTEROL/IPRATROPIUM 3 ML (DUONEB) VIAL INH SCH ×3 (07:37→19:56)
[2022-07-07] MEDS: RT--FLUTICASONE/SALMETEROL 113-14 (AIRDUO RespiCLICK) IH SCH ×2 (07:37→19:56)
[2022-07-07] MEDS ORDERED: POTASSIUM PHOSPHATE INJ 30 MM in NS (IVPB) 250 ML IV ONE (08:00)
--- NOTE | 2022-07-07 08:12 | Tele-ICU Progress Note ---
Subjective Date Seen by a Provider: Jul 07, 2022 Time Seen by a Provider: 08:12 Subjective/Events-last exam (Tele-ICU Physician , consultation) Available chart/ vitals / labs / Images reviewed H&P is from ER notes Patient's information available about PMH, allergy reviewed in EMR. ROS as per chart and RN report Video assessment done using teleICU camera, rest of exam as per RN Discussed with RN. Patient today is more alert and talking. Currently using oxygen via nasal cannula. No new complaints offered. His PCO2 is coming down to normal. Sepsis Event Evaluation Height, Weight, BMI Height: 6'0.00" Weight: 306lbs. 0.0oz. [id number]; 40.74 BMI Method:Stated Focused Exam Lactate Level 07/04/22 16:00: Lactic Acid Level 1.57 Exam Exam Patient acknowledged, consented, and participated in this virtual visit which was conducted using real time audio/video Vital Signs Date Time Temp Pulse Resp B/P (MAP) Pulse Ox O2 Delivery O2 Flow Rate FiO2 07/07/22 08:00 96 Nasal Cannula 4.00 07/07/22 08:00 99 20 153/74 (100) 96 Nasal Cannula 4.00 07/07/22 07:38 94 Nasal Cannula 4.00 07/07/22 07:26 36.9 07/07/22 07:00 98 14 149/81 (103) 94 NIV Bilevel 40.00 07/07/22 07:00 98 07/07/22 06:00 98 25 146/73 (97) 97 NIV Bilevel 40.00 07/07/22 05:00 98 17 140/78 (98) 97 NIV Bilevel 40.00 07/07/22 04:00 98 16 134/77 (96) 97 NIV Bilevel 40.00 07/07/22 04:00 36.6 07/07/22 03:43 96 NIV Bilevel 40 07/07/22 03:00 100 17 121/69 (86) 97 NIV Bilevel 40.00 07/07/22 02:00 103 17 144/73 (96) 94 NIV Bilevel 40.00 07/07/22 01:00 98 21 130/85 (100) 97 NIV Bilevel 40.00 07/07/22 01:00 100 07/07/22 00:45 97 NIV Bilevel 40 07/07/22 00:00 36.8 07/07/22 00:00 105 20 153/74 (100) 97 NIV Bilevel 40.00 07/06/22 23:00 103 16 153/84 (107) 97 NIV Bilevel 40.00 07/06/22 22:00 104 21 146/84 (104) 96 NIV Bilevel 40.00 07/06/22 21:15 NIV Bilevel 40.00 07/06/22 21:13 102 20 95 40.00 07/06/22 21:00 101 20 144/78 (100) 96 Nasal Cannula 4.00 07/06/22 20:16 36.7 07/06/22 20:00 96 Nasal Cannula 4.00 07/06/22 20:00 105 15 150/82 (104) 93 Nasal Cannula 4.00 07/06/22 19:48 36.8 07/06/22 19:10 96 Nasal Cannula 4.00 07/06/22 19:00 99 30 146/73 (97) 94 Nasal Cannula 4.00 07/06/22 19:00 100 07/06/22 18:00 100 12 132/71 (91) 95 Nasal Cannula 4.00 07/06/22 16:05 95 Nasal Cannula 07/06/22 16:00 101 19 131/71 (91) 92 Nasal Cannula 4.00 07/06/22 15:00 96 131/72 (91) 94 Nasal Cannula 4.00 07/06/22 14:58 94 Nasal Cannula 4.00 07/06/22 14:00 99 13 104/73 (83) 93 Nasal Cannula 4.00 07/06/22 13:00 103 21 113/63 (80) 90 Nasal Cannula 4.00 07/06/22 12:58 108 07/06/22 12:05 94 Nasal Cannula 07/06/22 12:00 106 115/73 (87) 94 Nasal Cannula 4.00 07/06/22 11:49 36.3 07/06/22 11:04 94 Nasal Cannula 4.00 07/06/22 11:00 103 15 139/74 (95) 94 Nasal Cannula 4.00 07/06/22 10:00 101 23 137/78 (97) 93 Nasal Cannula 4.00 07/06/22 09:00 98 10 143/87 (105) 94 Nasal Cannula 4.00 I & O 07/07/22 07:00 Intake Total 1340 ml Output Total 775 ml Balance 565 ml Height & Weight Height: 6'0.00" Weight: 306lbs. 0.0oz. 138.080187yn; 40.74 BMI Method:Stated General Appearance: No Apparent Distress, Chronically ill HEENT: Other (some skin breakdown on nasal bridge) Neck: Normal Inspection, Supple Respiratory: Lungs Clear, No Respiratory Distress Cardiovascular: Regular Rate, Rhythm, No Murmur Capillary Refill: Less Than 3 Seconds Extremity: Pedal Edema, Swelling Neurologic/Psychiatric: Alert, Oriented x3, Normal Mood/Affect Results Lab Laboratory Tests 07/06/22 06:13 07/07/22 04:53 Assessment/Plan Assessment/Plan 1. Acute on chronic hypercarbic respiratory failure due to possible underlying COPD with possible sleep apnea compounded by narcotic administration. improving 2. Moderate obesity with abdominal obesity predominant causing decreased diaphragmatic excursions. 3. History of rheumatoid arthritis 4. Possible cellulitis of the leg 5. Hepatitis C 6. Hypertension 7. Diabetes mellitus type 2 uncontrolled. 8. Chronic pain syndrome on high dose opioids Recommendations 1. keep in icu today and do not use bipap tonight and repeat abg's in am 2. Bronchodilator therapy 3. Antibiotic therapy per primary care service 4. DVT prophylaxis and ulcer prophylaxis. 5. correct Electrolyte abnormalities. Critical Care: Critically Ill Patient Time spent with patient (mins): 15 PAOLO NOLASCO MD Jul 07, 2022 08:12
[2022-07-07] MEDS: ROSUVASTATIN 20 MG (CRESTOR) TABLET PO SCH (08:21)
[2022-07-07] MEDS: lisINopril 20 MG (PRINIVIL) TABLET PO SCH ×2 (08:21→20:07)
[2022-07-07] MEDS: oxyCODONE ER 40 MG (oxyCONTIN CR) TAB PO SCH ×2 (08:21→20:07)
[2022-07-07] MEDS: ENOXAPARIN 40 MG/0.4 ML (LOVENOX) SYR SQ SCH ×2 (08:21→20:06)
[2022-07-07] MEDS: PANTOPRAZOLE 20 MG TABLET (PROTONIX) PO SCH (08:21)
[2022-07-07] MEDS: predniSONE 20 MG TAB PO SCH (08:21)
[2022-07-07] MEDS: DULoxetine 30 MG (CYMBALTA) CAP PO SCH (08:21)
[2022-07-07] MEDS: GABAPENTIN 400 MG (NEURONTIN) CAP PO SCH ×3 (08:21→20:07)
[2022-07-07] MEDS: KETOCONAZOLE 2% CREAM 15 GM (NIZORAL) TP SCH ×2 (08:22→21:16)
[2022-07-07] MEDS: BETAMETHASONE/CLOTRIM CREAM (LOTRISONE) 45 GM TP SCH ×3 (08:22→21:16)
--- NOTE | 2022-07-07 09:37 | Progress Note - Hospitalist ---
Subjective HPI/CC On Admission Date Seen by Provider: Jul 07, 2022 Patient is a 56-year-old male known to me from previous admissions who presented to the emergency department due to altered mental status and hypoxia. Apparently he had an episode of hypoxia when his oxygen tubing came off in the middle of the night and he had sats to the 60s. EMS was summoned at that time and corrected his tubing and had improvement in his oxygen saturation. Despite that he remained confused and lethargic throughout the day prompting him to seek evaluation in the emergency department. He also complained of lower extremity edema which she does have at baseline but he said his right side is worse than normal. He does have a history of a skin graft there. He was admitted on BiPAP for hypercapnic respiratory failure and this morning he reports feeling much better and his mentation is improving. There is no family at bedside. Subjective/Events-last exam Pt reports doing well. No complaints. Slept with BiPAP last night and ABG improved again thismorning. He reports pain is controlled and he would like to go home. Does not have CPAP/BiPAP at home as he quit using it and company took it back a while ago. Discussed plan to monitor him another night off BiPAP to make sure he would do well without it. He is in agreement with that plan. Focused Exam Lactate Level 07/04/22 16:00: Lactic Acid Level 1.57 Objective Exam Vital Signs Vital Signs Date Time Temp Pulse Resp B/P (MAP) Pulse Ox O2 Delivery O2 Flow Rate FiO2 07/07/22 09:00 100 23 147/96 (113) 95 Nasal Cannula 4.00 07/07/22 07:26 36.9 07/07/22 03:43 40 Capillary Refill : Less Than 3 Seconds General Appearance: No Apparent Distress, Chronically ill, Obese Respiratory: Lungs Clear, No Respiratory Distress Cardiovascular: Regular Rate, Rhythm, No Murmur Neurologic/Psychiatric: Alert, Oriented x3, Normal Mood/Affect Results/Procedures Lab Laboratory Tests 07/07/22 04:53 Patient resulted labs reviewed. Imaging: Reviewed Imaging Report Assessment/Plan Assessment and Plan Assess & Plan/Chief Complaint Acute on chronic hypercapnic respiratory failure ABG improved to normal pH with BiPAP overnight Will trial off tonight and check ABG in the AM to see if he qualifies for NIPPV at night Currently on 4lpm Baseline 2-3lpm NC MAT protocol TeleICU consulted Continue AirDuo Cellulitis Rocephin HTN BP improved Continue current regimen IDDMII SSI BS relatively well controlled RA Chronic narcotic use Continue current pain regimen- tolerating it well DVT ppx: Lovenox Critical Care Critically Ill Patient SUSAN SOSA MD Jul 07, 2022 09:37
[2022-07-07] MEDS: ALPRAZolam 1 MG (XANAX) TAB PO PRN (12:22)
[2022-07-07] MEDS: meTOprolol TARTRATE 25 MG (LOPRESSOR) TABLET PO PRN ×2 (12:54→21:13)
[2022-07-07 13:47] VITALS: BP 159/88
[2022-07-07] MEDS: cefTRIAXone 1 GM PRE-MIX 50 ML IV SCH (14:48)
[2022-07-08] MEDS: NS IV 1000 ML 1,000 ML IV SCH (02:30)
[2022-07-08 04:25] LABS: BASOPHILS % (AUTO) 0 % (0-10); EOSINOPHILS # (AUTO) 0.1 10^3/uL (0.0-0.3); EOSINOPHILS % (AUTO) 2 % (0-10); HEMATOCRIT 34 % (40-54); HEMOGLOBIN 11.2 g/dL (13.3-17.7); LYMPHOCYTES # (AUTO) 0.9 10^3/uL (1.0-4.0); LYMPHOCYTES % (AUTO) 12 % (12-44); MEAN CORPUSCULAR HEMOGLOBIN 30 pg (25-34); MEAN CORPUSCULAR HGB CONC 33 g/dL (32-36); MEAN CORPUSCULAR VOLUME 90 fL (80-99); MEAN PLATELET VOLUME 10.9 fL (9.0-12.2); MONOCYTES # (AUTO) 0.7 10^3/uL (0.0-1.0); MONOCYTES % (AUTO) 9 % (0-12); NEUTROPHILS # (AUTO) 5.5 10^3/uL (1.8-7.8); NEUTROPHILS % (AUTO) 76 % (42-75); PLATELET COUNT 171 10^3/uL (130-400); WHITE BLOOD COUNT 7.2 10^3/uL (4.3-11.0)
[2022-07-08 04:31] LABS: CALCIUM 9.3 MG/DL (8.5-10.1); CREATININE SERUM 0.83 MG/DL (0.60-1.30); MAGNESIUM 1.7 MG/DL (1.6-2.4); PHOSPHORUS 2.4 MG/DL (2.3-4.7); POTASSIUM 4.2 MMOL/L (3.6-5.0)
[2022-07-08] MEDS: KCL 20 MEQ TAB (K-DUR) PO SCH (05:39)
[2022-07-08] MEDS: POTASSIUM CL 10MEQ/50ML IVPB 50 ML IV SCH (05:39)
[2022-07-08] MEDS: MAGNESIUM 1 GM/100 ML IVPB 100 ML IV SCH ×3 (05:39→06:47)
[2022-07-08] MEDS: inSUlin ASPART (NovoLOG) 1 UNIT/0.01 ML (CHARGE PER UNIT) SC SCH ×2 (05:40→12:03)
[2022-07-08] MEDS ORDERED: MAGNESIUM 1 GM/100 ML IVPB 100 ML IV ONE (05:43)
[2022-07-08] MEDS: meTOprolol TARTRATE 25 MG (LOPRESSOR) TABLET PO PRN (06:45)
[2022-07-08] MEDS: RT--FLUTICASONE/SALMETEROL 113-14 (AIRDUO RespiCLICK) IH SCH (06:52)
[2022-07-08] MEDS: RT-ALBUTEROL/IPRATROPIUM 3 ML (DUONEB) VIAL INH SCH ×2 (06:52→14:50)
[2022-07-08] MEDS: predniSONE 20 MG TAB PO SCH (08:22)
[2022-07-08] MEDS: ROSUVASTATIN 20 MG (CRESTOR) TABLET PO SCH (08:22)
[2022-07-08] MEDS: GABAPENTIN 400 MG (NEURONTIN) CAP PO SCH ×2 (08:22→12:07)
[2022-07-08] MEDS: lisINopril 20 MG (PRINIVIL) TABLET PO SCH (08:22)
[2022-07-08] MEDS: oxyCODONE ER 40 MG (oxyCONTIN CR) TAB PO SCH (08:22)
[2022-07-08] MEDS: PANTOPRAZOLE 20 MG TABLET (PROTONIX) PO SCH (08:22)
[2022-07-08] MEDS: DULoxetine 30 MG (CYMBALTA) CAP PO SCH (08:22)
[2022-07-08] MEDS: ENOXAPARIN 40 MG/0.4 ML (LOVENOX) SYR SQ SCH (08:22)
[2022-07-08] MEDS: BETAMETHASONE/CLOTRIM CREAM (LOTRISONE) 45 GM TP SCH ×2 (08:23→12:07)
[2022-07-08] MEDS: KETOCONAZOLE 2% CREAM 15 GM (NIZORAL) TP SCH (08:23)
--- NOTE | 2022-07-08 08:52 | Physical Therapy Daily Note ---
PT Daily Note-Current Subjective Patient agrees to PT. Pain Section J - Health Conditions 1. Rarely or not at all 2. Occasionally 3. Frequently 4. Almost constantly 8. Unable to answer Pain Effect on Sleep: 1 Pain Interference with Therapy: 1 Pain Interference w/Day-to-Day: 1 Mental Status Patient Orientation: Normal For Age Attachments: Oxygen, [place] Catheter Transfers SCALE: Activities may be completed with or without assistive devices. 8-Ntffzstacr-nuoxdif completes the activity by him/herself with no assistance from a helper. 5-Set-up or Clean-up Assistance-helper sets up or cleans up; patient completes activity. [place] assists only prior to or following the activity. 4-Supervision or Touching Assistance-helper provides verbal cues and/or touching/steadying and/or contact guard assistance as patient completes activity. Assistance may be provided throughout the activity or intermittently. 3-Partial/Moderate Assistance-helper does LESS THAN HALF the effort. [place] lifts, holds or supports trunk or limbs, but provides less than half the effort. 2-Substantial/Maximal Assistance-helper does MORE THAN HALF the effort. [place] lifts or holds trunk or limbs and provides more than half the effort. 2-Ajrllolyp-thnraj does ALL the effort. Patient does none of the effort to complete the activity. Or, the assistance of 2 or more helpers is required for the patient to complete the activity. If activity was not attempted, code reason: 7-Patient Refused. 9-Not Applicable-not attempted and the patient did not perform the activity before the current illness, exacerbation or injury. 10-Not Attempted due to Environmental Limitations-(lack of equipment, weather restraints, etc.). 88-Not Attempted due to Medical Conditions or Safety Concerns. Exercises Supine Ex: Quad Set, Glut sets, Heel Slides, Scooting, Straight leg raise, Hip abd/add Supine Reps: 20 (x 2 sets) Assessment Patient tolerated treatment well and remains in bed. Patient voices desire to return to home on this date. Patient is non ambulatory and does not stand PLOF. PT Repair Service Dispatcher Goals Fdc Goals PT Fdc Goals Time Frame: Jul 13, 2022 Roll Left & Right (QC): 3 Sit to Lying (QC): 3 Lying-Sitting on Side/Bed(QC): 3 Chair/Teo-nn-Cvcds Xfer(QC): 3 PT Plan Treatment/Plan Treatment Plan: Continue Plan of Care Treatment Plan: Bed Mobility, Education, Functional Activity Adina, Functional Strength, Safety, Therapeutic Exercise, Transfers Treatment Duration: Jul 13, 2022 Frequency: 6 times per week Estimated Hrs Per Day: .25 hour per day Patient and/or Family Agrees t: Yes Time Time In: 715 Time Out: 738 DATE: Jul 08, 2022 Total Billed Treatment Time: 23 Total Billed Treatment 1 visit EX x 2 23 min ALEKSANDR BRUNO PT Jul 08, 2022 08:51
[2022-07-08] MEDS ORDERED: LISI20TA26 PO (10:32)
[2022-07-08] MEDS ORDERED: ASCO-262 PO (10:32)
[2022-07-08] MEDS ORDERED: OXYC80TA PO ×2 (10:32→11:01)
[2022-07-08] MEDS ORDERED: CHOL200074 PO (10:32)
--- NOTE | 2022-07-08 11:12 | Occupational Therapy Eval ---
OT Evaluation-General/PLF Medical Diagnosis Admission Date Jul 04, 2022 at 17:50 Medical Diagnosis: hypoxia, AMS Onset Date: Jul 04, 2022 Therapy Diagnosis Therapy Diagnosis: reduced adl status Height/Weight Height (Feet): 6 Height (Inches): 0.00 Weight (Pounds): 306 Weight (Ounces): 0.0 Precautions Precautions/Isolations: Fall Prevention, Standard Precautions Referral Physician: Kyrie Referral Reason: Evaluation/Treatment Medical History Pertinent Medical History: Arthritis, COPD, DM, HTN, Neuropathy, PVD, Renal Insufficiency, Rheumatoid Arthritis, Smoking Additional Medical History LE edema, Hep C, DDD Current History Pt presented to hospital with hypoxia and AMS. Per patient, he lives with his mother in a single story home, ramp entrance. He verbalizes being mod I for adls at bed level. He does not stand/ambulate and uses an electric w/c. Pt reports he either uses a slide board or will get close enough to the surface where he does not need to board. Pt reports constant numbness/tingling in Bilateral hands and "sometimes" will use built up handles on days that he is feeling bad. Pt states he uses oxygen at night only, 3L. Reviewed History: Yes Social History Home: Single Level Current Living Status: Other Family (lives with mother) Entry Into Home: [facility] ADL-Prior Level of Function SCALE: Activities may be completed with or without assistive devices. 0-Jujqqvathy-rekqzsr completes the activity by him/herself with no assistance from a helper. 5-Set-up or Clean-up Assistance-helper sets up or cleans up; patient completes activity. [place] assists only prior to or following the activity. 4-Supervision or Touching Assistance-helper provides verbal cues and/or touching/steadying and/or contact guard assistance as patient completes activity. Assistance may be provided throughout the activity or intermittently. 3-Partial/Moderate Assistance-helper does LESS THAN HALF the effort. [place] lifts, holds or supports trunk or limbs, but provides less than half the effort. 2-Substantial/Maximal Assistance-helper does MORE THAN HALF the effort. [place] lifts or holds trunk or limbs and provides more than half the effort. 1-Ounnhihqv-disjgo does ALL the effort. Patient does none of the effort to complete the activity. Or, the assistance of 2 or more helpers is required for the patient to complete the activity. If activity was not attempted, code reason: 7-Patient Refused. 9-Not Applicable-not attempted and the patient did not perform the activity before the current illness, exacerbation or injury. 10-Not Attempted due to Environmental Limitations-(lack of equipment, weather restraints, etc.). 88-Not Attempted due to Medical Conditions or Safety Concerns. Self Care: Independent Functional Cognition: Independent DME/Equipment: Bath Bench, Bedside Commode, Grab Bars, Tub/Shower OT Current Status Subjective Pt denies pain, agreeable to evaluation. He and his mother report that patient will be discharging later today. Appearance Pt left supine in bed, mother present, all needs within reach at OT departure. Mental Status/Objective Patient Orientation: Person, Place, Situation Attachments: IV, Oxygen, Telemetry Current Hearing Aids: No Dentures/Partials: No Hand Dominance: Right Upper Extremity ROM Limited hand/finger movement secondary to edema and arthritis Upper Extremity Strength R shoulder: 3+/5 L shoulder: 4/5 Fair-poor rotor pilot ADL-Treatment Eating (QC): 4 Oral Hygiene (QC): 4 Pt sitting upright in bed at OT arrival. He reports possible discharge home later today. He was able to demonstrate ability to hold silverware and bring to mouth but with poor rotor pilot. Education on built up handles which patient reports he will use "sometimes on days that are bad." Anticipate patient able to complete oral care with same assist. Pt participated in UE AROM exercises. R shoulder and bilateral hands/wrists fatigue quickly with exercises. Only able to tolerate 6-8 reps at a time. Education OT Patient Education: Correct positioning, Energy conservation, Exercise program, Modified ADL techniques, Progress toward Goal/Update tx plan, Safety issues, Transfer techniques Teaching Recipient: Patient, Family Teaching Methods: Demonstration, Discussion Response to Teaching: Verbalize Understanding, Return Demonstration, Rein forcement Needed OT Prison Goals Prison Goals Time Frame: Jul 15, 2022 Eating (QC): 5 Oral Hygiene (QC): 5 Toileting Hygiene (QC): 4 Shower/Bathe Self (QC): 4 Upper Body Dressing (QC): 4 Lower Body Dressing (QC): 4 On/Off Footwear (QC): 4 Additional Goals: 1-Demonstrate ADL Tasks, 2-Verbalize Understanding, 3- ImproveStrength/Adina 1=Demonstrate adherence to instructed precautions during ADL tasks. 2=Patient will verbalize/demonstrate understanding of assistive devices/modifications for ADL. 3=Patient will improve strength/tolerance for activity to enable patient to perform ADL's. OT Education/Plan Problem List/Assessment Assessment: Decreased Activ Tolerance, Decreased UE Strength, Edema, Impaired Funct Balance, Impaired Self-Care Skills, Restricted Funct UE ROM Discharge Recommendations Plan/Recommendations: Continue POC Treatment Plan/Plan of Care Treatment,Training & Education: Yes Patient would benefit from OT for education, treatment and training to promote independence in ADL's, mobility, safety and/or upper extremity function for ADL's. Plan of Care: ADL Retraining, Caregiver Training, Functional Mobility, UE Funct Exercise/Act, W/C Management Training Treatment Duration: Jul 15, 2022 Frequency: 3 times per week (3-5x/week) Estimated Hrs Per Day: .25 hour per day Agreement: Yes Time Start Time: 10:47 Stop Time: 11:00 DATE: Jul 15, 2022 Total Time Billed (hr/min): 13 Billed Treatment Time 1 visit Yesenia Sinclair OT Jul 08, 2022 11:12
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
[2022-07-08] MEDS ORDERED: FLU QUADRIvalent (6 months+) 60 mcg/0.5 ml 2022-23 (Fluzone) IM ONE (11:15)
== END 2022-07-08 15:30 | disposition home or self-care (01) | DRG 189 ==
LOC: EDUNIT# 15:17 → ER 15:20 → ICU 17:50
PROVIDERS: ADMIT Family Medicine; ATTEND Internal Medicine
PROC: 5A09357 Assistance with Respiratory Ventilation, Less than 24 Consecutive Hours, Continuous Positive Airway Pressure (ICD-10-PCS; principal; 2022-07-05)
DX: J96.22 Acute and chronic respiratory failure with hypercapnia (principal); L03.115 Cellulitis of right lower limb; E87.29 Other acidosis; Z68.41 Body mass index [BMI] 40.0-44.9, adult; E66.01 Morbid (severe) obesity due to excess calories; G58.7 Mononeuritis multiplex; J96.21 Acute and chronic respiratory failure with hypoxia; M06.9 Rheumatoid arthritis, unspecified; B19.20 Unspecified viral hepatitis C without hepatic coma; F17.210 Nicotine dependence, cigarettes, uncomplicated; G89.4 Chronic pain syndrome; Z99.81 Dependence on supplemental oxygen; Z79.4 Long term (current) use of insulin; I10 Essential (primary) hypertension; E11.51 Type 2 diabetes mellitus with diabetic peripheral angiopathy without gangrene; G43.909 Migraine, unspecified, not intractable, without status migrainosus; E11.40 Type 2 diabetes mellitus with diabetic neuropathy, unspecified; K21.9 Gastro-esophageal reflux disease without esophagitis; M54.9 Dorsalgia, unspecified; F41.9 Anxiety disorder, unspecified; F32.A Depression, unspecified
CPT/HCPCS: 36415; 36600; 51702; 71045; 80048; 80053; 81000; 82805; 82947; 83605; 83735; 83880; 84100; 84484; 85025; 85610; 85730; 86141; 87040; 87081; 87088; 93005; 94640; 94660; 94761

== ENCOUNTER 2022-08-27 11:00 | Emergency (ER) | payer MEDICARE, MEDICAID ==
[~2022-08-27] VITALS: Ht 180.3 cm; Wt 117.9 kg
[~2022-08-27 11:00] MED LIST changes: +AMLO-250 PO; +ASCO-262 PO; +CHOL200074 PO; +CLOT15CR6 TP; +KETO15CR2 TP; +METO-333 PO; +OXYC80TA PO; +ROSU40TA23 PO; +[UNRECOGNIZED DRUG - CODE] MC
--- NOTE | 2022-08-27 11:56 | Diagnostic Imaging Report ---
INDICATION: Hypertension and head pain. Lungs clear. No failure, effusion or pneumothorax. IMPRESSION: No acute appearing abnormality. Dictated by: Dictated on workstation # [id number]
[2022-08-27 12:05] LABS: BASOPHILS # (AUTO) 0.1 10^3/uL (0.0-0.1); BASOPHILS % (AUTO) 1 % (0-10); EOSINOPHILS # (AUTO) 0.4 10^3/uL (0.0-0.3); EOSINOPHILS % (AUTO) 4 % (0-10); HEMATOCRIT 43 % (40-54); HEMOGLOBIN 14.6 g/dL (13.3-17.7); LYMPHOCYTES # (AUTO) 1.7 10^3/uL (1.0-4.0); LYMPHOCYTES % (AUTO) 18 % (12-44); MEAN CORPUSCULAR HEMOGLOBIN 30 pg (25-34); MEAN CORPUSCULAR HGB CONC 34 g/dL (32-36); MEAN CORPUSCULAR VOLUME 88 fL (80-99); MEAN PLATELET VOLUME 10.8 fL (9.0-12.2); MONOCYTES # (AUTO) 0.7 10^3/uL (0.0-1.0); MONOCYTES % (AUTO) 7 % (0-12); NEUTROPHILS # (AUTO) 6.9 10^3/uL (1.8-7.8); NEUTROPHILS % (AUTO) 71 % (42-75); PLATELET COUNT 227 10^3/uL (130-400); WHITE BLOOD COUNT 9.7 10^3/uL (4.3-11.0)
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
[2022-08-27 12:23] LABS: INR 0.9 (0.8-1.4); PROTHROMBIN TIME PATIENT 12.6 SEC (12.2-14.7)
[2022-08-27 12:25] LABS: ALANINE AMINOTRANSFERASE 32 U/L (0-55); ALBUMIN 3.5 GM/DL (3.2-4.5); ALKALINE PHOSPHATASE 92 U/L (40-136); BILIRUBIN,TOTAL 1.5 MG/DL (0.1-1.0); BUN/CREATININE RATIO 7; CALCIUM 11.3 MG/DL (8.5-10.1); CARBON DIOXIDE 28 MMOL/L (21-32); CHLORIDE 102 MMOL/L (98-107); CREATINE KINASE 12 U/L (30-200); GFR ESTIMATED 78; GLUCOSE 248 MG/DL (70-105); MAGNESIUM 1.7 MG/DL (1.6-2.4); POTASSIUM 4.2 MMOL/L (3.6-5.0); SODIUM 137 MMOL/L (135-145); TOTAL PROTEIN 6.8 GM/DL (6.4-8.2)
[2022-08-27 12:45] LABS: CREATINE KINASE MB 0.7 NG/ML (<6.6); TSH (THYROID ANALYZER) 2.21 UIU/ML (0.35-4.94)
--- NOTE | 2022-08-27 12:55 | Diagnostic Imaging Report ---
PROCEDURE: CT head without r/o stroke. TECHNIQUE: Multiple contiguous axial images were obtained through the brain without the use of intravenous contrast. Auto Exposure Controls were utilized during the CT exam to meet ALARA standards for radiation dose reduction. INDICATION: Hypertensive patient. We were given a history of "neurodeficit". What that neurodeficit may happen to be is not shared with me. FINDINGS: There is no hemorrhage. There is no hydrocephalus. No focal or generalized cerebral edema. The cervical cortical volume shows a mild degree of atrophy, somewhat early for age; however, no hydrocephalus. There are periventricular and subcortical patchy white matter hypodensities which appear relatively symmetric and are likely small vessel sequelae given the history of hypertension. The findings are not significantly changed from a comparison of 01/28/2022. IMPRESSION: Very mild degree of a somewhat premature atrophy and periventricular white matter disease is stable from prior. No hemorrhage, edema, or acute appearing abnormality. Dictated by: Dictated on workstation # [id number]
[2022-08-27 13:01] LABS: BILIRUBIN,URINE NEGATIVE (NEGATIVE); CLARITY,URINE CLEAR; COLOR,URINE DARK YELLOW; GLUCOSE, URINE (UA) 1+ (NEGATIVE); KETONES,URINE NEGATIVE (NEGATIVE); LEUKOCYTE ESTERASE ,URINE NEGATIVE (NEGATIVE); NITRITE,URINE NEGATIVE (NEGATIVE); PROTEIN,URINE 2+ (NEGATIVE)
[2022-08-27 13:09] LABS: BACTERIA,URINE NEGATIVE /HPF; RBC,URINE 0-2 /HPF; SQUAMOUS EPITHELIAL CELL,UR RARE /HPF; WBC,URINE 0-2 /HPF
[2022-08-27 13:21] LABS: AMPHETAMINE SCREEN, URINE NEGATIVE (NEGATIVE); BARBITURATE SCREEN URINE NEGATIVE (NEGATIVE); BENZODIAZEPINES SCREEN URINE POSITIVE (NEGATIVE); CANNABINOID SCREEN, URINE POSITIVE (NEGATIVE); COCAINE SCREEN URINE NEGATIVE (NEGATIVE); METHADONE STAT NEGATIVE (NEGATIVE); OPIATE SCREEN URINE POSITIVE (NEGATIVE); OXYCODONE STAT POSITIVE (NEGATIVE); PROPOXYPHENE STAT NEGATIVE (NEGATIVE); TRICYCLIC ANTIDEPRESSANTS SCRE NEGATIVE (NEGATIVE)
[2022-08-27 13:24] VITALS: BP 148/84
== END 2022-08-27 13:27 | disposition home or self-care (01) ==
LOC: EDUNIT# 11:00 → ER 11:03
DX: I10 Essential (primary) hypertension (principal); E11.9 Type 2 diabetes mellitus without complications; E66.01 Morbid (severe) obesity due to excess calories; Z68.36 Body mass index [BMI] 36.0-36.9, adult; Z91.040 Latex allergy status; Z79.4 Long term (current) use of insulin
CPT/HCPCS: 36415; 70450; 71045; 80053; 80306; 81000; 82550; 82553; 83735; 83880; 84443; 84484; 85025; 85610; 85730; 93005; 93041

== ENCOUNTER 2022-12-10 12:53 | Observation (INO) | payer MEDICARE, MEDICAID ==
[~2022-12-10] VITALS: Ht 175.3 cm; Wt 130.3 kg
[~2022-12-10 12:53] MED LIST changes: -INSU100I29 SC; -INSU100I29 SQ; +INSU100I30 SC; +INSU100I30 SQ; +MOME13HF12 INH; -MOME13HF2 INH
[2022-12-10] MEDS ORDERED: NS IV 1000 ML 1,000 ML IV SCH (13:15)
--- NOTE | 2022-12-10 13:40 | Diagnostic Imaging Report ---
INDICATION: Sepsis. COMPARISON: 08/27/2022. FINDINGS: Given portable AP technique with apical lordotic orientation, the mediastinal contour is stable. The heart is mildly enlarged and increased, and there is no hernán pulmonary edema. There is some left lingular and basilar partial atelectasis. IMPRESSION: Mild cardiomegaly and mild zones of left infrahilar and basilar partial atelectasis. No hernán edema or pleural pathology. Dictated by: Dictated on workstation # [id number]
[2022-12-10 13:44] LABS: ABG BASE EXCESS 2.9 MMOL/L (-2.5-2.5); ABG OXYGEN SATURATION 89 % (94-100); ABG PCO2 55 MMHG (35-45); ABG PO2 58 MMHG (79-93); ABG TCO2 29.8 MMOL/L (21.0-31.0)
[2022-12-10 13:49] LABS: ABG PH 7.33 (7.37-7.43); ALLENS TEST YES-POS; PATIENT TEMP 37.8; VENTILATOR NO
[2022-12-10] MEDS ORDERED: LIDOCAINE UROJET 2% GEL 10 ML PKG ONE (14:16)
[2022-12-10 14:28] LABS: BASOPHILS # (AUTO) 0.1 10^3/uL (0.0-0.1); BASOPHILS % (AUTO) 1 % (0-10); EOSINOPHILS # (AUTO) 0.4 10^3/uL (0.0-0.3); EOSINOPHILS % (AUTO) 3 % (0-10); HEMATOCRIT 42 % (40-54); HEMOGLOBIN 13.7 g/dL (13.3-17.7); LYMPHOCYTES # (AUTO) 1.7 X 10^3 (1.0-4.0); LYMPHOCYTES % (AUTO) 15 % (12-44); MEAN CORPUSCULAR HEMOGLOBIN 30 pg (25-34); MEAN CORPUSCULAR HGB CONC 33 g/dL (32-36); MEAN CORPUSCULAR VOLUME 92 fL (80-99); MEAN PLATELET VOLUME 10.9 fL (9.0-12.2); MONOCYTES # (AUTO) 1.2 X 10^3 (0.0-1.0); MONOCYTES % (AUTO) 10 % (0-12); NEUTROPHILS # (AUTO) 7.7 X 10^3 (1.8-7.8); NEUTROPHILS % (AUTO) 70 % (42-75); PLATELET COUNT 158 10^3/uL (130-400)
[2022-12-10 14:35] LABS: ALBUMIN 3.4 GM/DL (3.2-4.5); CHLORIDE 101 MMOL/L (98-107); POTASSIUM 4.2 MMOL/L (3.6-5.0); SODIUM 137 MMOL/L (135-145)
[2022-12-10 14:36] LABS: CALCIUM 10.3 MG/DL (8.5-10.1)
[2022-12-10 14:37] LABS: GLUCOSE 169 MG/DL (70-105); TOTAL PROTEIN 6.1 GM/DL (6.4-8.2)
[2022-12-10 14:38] LABS: CARBON DIOXIDE 27 MMOL/L (21-32)
[2022-12-10 14:39] LABS: BILIRUBIN,URINE NEGATIVE (NEGATIVE); CLARITY,URINE CLEAR; COLOR,URINE YELLOW; GLUCOSE, URINE (UA) TRACE (NEGATIVE); KETONES,URINE NEGATIVE (NEGATIVE); LEUKOCYTE ESTERASE ,URINE NEGATIVE (NEGATIVE); NITRITE,URINE NEGATIVE (NEGATIVE); PH,URINE 5.5 (5-9); PROTEIN,URINE NEGATIVE (NEGATIVE)
[2022-12-10 14:39] LABS: BILIRUBIN,TOTAL 1.1 MG/DL (0.1-1.0)
[2022-12-10 14:41] LABS: ALKALINE PHOSPHATASE 101 U/L (40-136); CREATININE SERUM 1.18 MG/DL (0.60-1.30); GFR ESTIMATED 72
[2022-12-10 14:42] LABS: BUN/CREATININE RATIO 12
[2022-12-10 14:44] LABS: ALANINE AMINOTRANSFERASE 16 U/L (0-55)
[2022-12-10 14:50] LABS: PROTHROMBIN TIME PATIENT 13.5 SEC (12.2-14.7)
[2022-12-10 14:57] LABS: AMPHETAMINE SCREEN, URINE NEGATIVE (NEGATIVE); BACTERIA,URINE NEGATIVE /HPF; BARBITURATE SCREEN URINE NEGATIVE (NEGATIVE); BENZODIAZEPINES SCREEN URINE POSITIVE (NEGATIVE); CANNABINOID SCREEN, URINE POSITIVE (NEGATIVE); COCAINE SCREEN URINE NEGATIVE (NEGATIVE); METHADONE STAT NEGATIVE (NEGATIVE); OPIATE SCREEN URINE NEGATIVE (NEGATIVE); OXYCODONE STAT POSITIVE (NEGATIVE); PROPOXYPHENE STAT NEGATIVE (NEGATIVE); TRICYCLIC ANTIDEPRESSANTS SCRE NEGATIVE (NEGATIVE)
--- NOTE | 2022-12-10 15:40 | ED General ---
General Chief Complaint: General Problems/Pain Stated Complaint: LOW O2 | HIGH BLOOD SUGAR | INCOHERENT Nursing Triage Note: PT TO ED BY POV WITH C/O LOW O2, AMS. DAUGHTER REPORTS 1 EPISODE OF VOMITING YESTERDAY. PT MAX ASSIST FROM CAR INTO WC AND WC TO COT. DAUGHTER SAID THIS IS BASELINE FOR PT AND HE DOES NOT GET OUT OF BED. DAUGHTER REPORTS HE HAS BEEN GETTING PROGRESSIVELY MORE DISORIENTED SINCE FRIDAY NIGHT, DIFFICULTY TO WAKE. Source of Information: Patient, Family, Old Records Exam Limitations: Other (Clinical condition) History of Present Illness Date Seen by Provider: Dec 10, 2022 Time Seen by Provider: 12:55 Initial Comments This 57-year-old man with chronic debility and numerous comorbidities presents to the emergency room with primary complaint of excessive somnolence and weakness. The symptoms have been progressively worse over the past 3 days. He uses oxygen at home but came in without oxygen on by private vehicle. He has history of COPD and hypercarbia for which he was admitted with respiratory failure last June. He did improve significantly on BiPAP. Patient has not had fever. He did have 1 episode of vomiting yesterday and has complained of some abdominal pain. He does not have any pain complaints at present. There is no reported trauma. He has history of mononeuritis multiplex. He has had some social changes in the home recently as his mother who provides some of his care has been admitted to the hospital. His children have been stepping into help but care may have changed. Patient takes numerous sedating medications including oxycodone, Xanax, gabapentin, and Phenergan. He denies taking extra doses but he does not appear to be a reliable historian at this time. Allergies and Home Medications Allergies Coded Allergies: hydrocodone (Verified Allergy, Unknown, TAKES OXYCODONE AT HOME, 05/05/16) STATES IS NOT ALLERGIC TO THIS MED latex (Verified Allergy, Unknown, 05/05/16) Patient Home Medication List Home Medication List Reviewed: Yes Albuterol Sulfate (Ventolin Hfa) 8.5 Gm Hfa.aer.ad, 2 PUFF IH QID PRN for SHORTNESS OF BREATH, (Reported) Entered as Reported by: WHITNEY DOWD on 02/26/16 0952 Alprazolam (Alprazolam) 1 Mg Tablet, 1 MG PO BID, (Reported) Entered as Reported by: LISS EDMOND on 09/18/20 1523 Amlodipine Besylate (Amlodipine Besylate) 5 Mg Tablet, 5 MG PO DAILY, (Reported) Entered as Reported by: GISELLE MCKEON on 07/05/22 153 Ascorbate Calcium (Vitamin C) 500 Mg Tablet, 500 MG PO DAILY, (Reported) Entered as Reported by: LISS EDMOND on 07/08/22 1032 Cholecalciferol (Vitamin D3) (Vitamin D3) 50 Mcg (2000 Unit) Capsule, 50 MCG PO DAILY, (Reported) Entered as Reported by: LISS EDMOND on 07/08/22 1032 Clotrimazole/Betamethasone Dip (Clotrimazole-Betamethasone Crm) 1 %-0.05 % Cream..g., 1 APPLIC TP TID PRN for RASH, (Reported) Entered as Reported by: GISELLE MCKEON on 07/05/22 153 Duloxetine HCl (Duloxetine HCl) 60 Mg Capsule.dr, 60 MG PO DAILY, (Reported) Entered as Reported by: GISELLE MCKEON on 07/05/22 153 Gabapentin (Gabapentin) 800 Mg Tablet, 800 MG PO TID, (Reported) Entered as Reported by: ENE MARTINI on 04/25/17 1427 Insulin Detemir (Levemir Flextouch) 100 Unit/Ml (3 Ml) Insuln.pen, 40 UNIT SQ BID, (Reported) Entered as Reported by: GISELLE MCKEON on 07/05/22 153 Insulin Lispro (Insulin Lispro Kwikpen U-100) 100 Unit/1 Ml Insuln.pen, UNITS SQ AC, (Reported) Entered as Reported by: LISS EDMOND on 09/18/20 1523 Ketoconazole (Ketoconazole) 2 % Cream..g., 1 APPLIC TP BID PRN for RASH, (Reported) Entered as Reported by: GISELLE MCKEON on 07/05/22 1536 Lisinopril (Lisinopril) 20 Mg Tablet, 20 MG PO DAILY, (Reported) Entered as Reported by: GISELLE MCKEON on 07/05/22 153 Lisinopril (Lisinopril) 20 Mg Tablet, 20 MG PO HS PRN for BLOOD PRESSURE, (Reported) Entered as Reported by: LISS EDMOND on 07/08/22 1032 Metoprolol Tartrate (Metoprolol Tartrate) 25 Mg Tablet, 25 MG PO BID PRN for HEART RATE, (Reported) Entered as Reported by: GISELLE MCKEON on 07/05/22 1540 Mometasone/Formoterol (Dulera 100 Mcg/5 Mcg Inhaler) 13 Gm Hfa.aer.ad, 1 PUFF INH BID, (Reported) Entered as Reported by: LISS EDMOND on 09/18/20 1523 Oxycodone HCl (Oxycodone HCl) 30 Mg Tablet, 30 MG PO Q4 -6H PRN for BREAKTHROUGH PAIN, (Reported) Entered as Reported by: WHITNEY DOWD on 02/26/16 0938 Oxycodone HCl (Oxycodone HCl ER) 80 Mg Tab.er.12h, 80 MG PO BID Prescribed by: FREDDIE JIMENEZ on 07/08/22 1101 Prednisone (Prednisone) 20 Mg Tab, 20 MG PO DAILY, (Reported) Entered as Reported by: ENE MARTINI on 05/02/17 1430 Promethazine HCl (Promethazine Tablet) 25 Mg Tablet, 25 MG PO BID PRN for NAUSEA/VOMITING-2ND LINE, (Reported) Entered as Reported by: WHITNEY DOWD on 02/26/16 0952 Rosuvastatin Calcium (Rosuvastatin Calcium) 40 Mg Tablet, 40 MG PO DAILY, (Reported) Entered as Reported by: GISELLE MCKEON on 07/05/22 1532 Review of Systems Review of Systems Constitutional: see HPI EENTM: no symptoms reported Respiratory: no symptoms reported Cardiovascular: no symptoms reported Gastrointestinal: see HPI Genitourinary: no symptoms reported Musculoskeletal: no symptoms reported Skin: no symptoms reported Psychiatric/Neurological: See HPI Hematologic/Lymphatic: No Symptoms Reported Immunological/Allergic: no symptoms reported Past Azodgzf-Zcumwt-Dvjdbi Hx Patient Social History Tobacco Use?: No Smoking Status: Former Smoker Use of E-Cig and/or Vaping dev: No Substance use?: No Alcohol Use?: No Pt feels they are or have been: No Immunizations Up To Date Tetanus Booster (TDap): Unknown PED Vaccines UTD: Yes First/Initial COVID19 Vaccinat: X1 Second COVID19 Vaccination Jaden: YES Third COVID19 Vaccination Date: YES Seasonal Allergies Seasonal Allergies: No Past Medical History Surgery/Hospitalization HX: RA, NEUROPATHY, VASCULITIS, SKIN GRAPH FROM LANCE ON RT LEG, MONONEUROTISMULTIPLEX, DIABETIC TYPE II, COPD, HX OF UTI'S AND SEPSIS Surgeries: Yes Abdominal, Cardiac, Orthopedic Respiratory: Yes (O2 DEPENDENT AT 2L/NC; MULTIPLE INTUBATIONS; CHRONIC RESP FAILURE) Pneumonia, COPD Currently Using CPAP: Yes Currently Using BIPAP: Yes Cardiac: Yes Chronic Edema/Swelling, Hypertension, Peripheral Vascular Neurological: Yes (MONO NEURITIS MULTIPLEX; NEUROPATHY--WHEELCHAIR BOUND) Headaches /Migraines, Neuropathy Reproductive Disorders: No Sexually Transmitted Disease: No HIV/AIDS: No Genitourinary: Yes (SHORT TERM DIALYSIS) Bladder Infection, Kidney Stones, Renal Failure, UTI-Chronic Gastrointestinal: Yes (HEPATITIS C--NO TREATMENT. BILARY STENT) Gastroesophageal Reflux, Liver Disease/Jaundice, Hepatitis, Gall Bladder Disease Musculoskeletal: Yes (WHEELCHAIR BOUND DUE TO MORBID OBESITY;CHROINC PAIN AND DEBILITY. ) Degenerate Disk Disease, Arthritis, Rheumatoid Arthritis, Chronic Back Pain Endocrine: Yes (MORBID OBESITY; ELEVATED URIC ACID) Diabetes, Insulin dep HEENT: No Loss of Vision: Denies Hearing Impairment: Denies Cancer: No Psychosocial: Yes (EXTENSIVE POLYSUBSTANCE ABUSE, WITH NON-SUICIDAL OVERDOSES) Sleep Difficulties, Anxiety, Depression Integumentary: Yes (3RD DEGREE LANCE TO R LEG WITH SKIN GRAFTS; CELLULITIS R LEG) Blood Disorders: No Family Medical History Alcoholism 03 FATHER Diabetes mellitus 03 FATHER Family history: Allergy 03 MOTHER Family history: Asthma 03 MOTHER Family history: Hypertension 03 FATHER 03 MOTHER No Pertinent Family Hx IS. SOCIAL HISTORY: -SMOKES 1 1/2 PPD -ETOH--HX OF ABUSE, CLAIMS NO RECENT USE -DRUGS--LONGSTANDING EXTENSIVE HISTORY OF DRUG ABUSE, INCLUDING METHAMPHETAMINES, THC, RX DRUGS--ESPECIALLY OPIATES AND BENZODIAZEPINES. HAS HAD MULTIPLE OVERDOSES--NON-SUICIDAL--HAS REQUIRED INTUBATIONS MULTIPLE TIMES IN THE PAST DUE TO OVERDOSES. PAST SURGICAL HISTORY: -BILILARY STENT -BACK SURGERY--LUMBAR HERNIATED DISC -CARDIAC CATH 2009--NORMAL -NERVE BIOPSY RIGHT LEG -SKIN GRAFTS ADDITIONAL PAST MEDICAL HISTORY: -COPD, O2 DEPENDENT AT 2 L/NC, WITH MULTITUDE OF EPISODES OF ACUTE ON CHRONIC RESPIRATORY FAILURE REQUIRING INTUBATION MULTIPLE TIMES, WITH SOME BEING DUE TO DRUG OVERDOSES. - VASCULITIS - CHRONIC LEG EDEMA --RIGHT > LEFT, THIS SIDE HAS BEEN MORE AFFECTED BY LANCE; HAS WORN BRACES ON BOTH LEGS IN THE PAST - WHEELCHAIR BOUND DUE TO MORBID OBESITY, CHRONIC GENERALIZED PAIN, GENERALIZED DEBILITY AND NEUROPATHY--PT CAN STAND FOR TRANSFERS. - HAS BEEN ON DIALYSIS IN THE PAST, BRIEFLY FOR ACUTE RENAL FAILURE - ELEVATED URIC ACID - CHRONIC GENERALIZED PAIN COMPLAINTS - 3RD DEGREE LANCE TO RIGHT LEG 06/2013, WITH SKIN GRAFTS--CAUSED BY PT FALLING ASLEEP WITH LIGHTED CIGARETTE. - CELLULITIS OF RIGHT LEG 09/2015--SEPTIC SHOCK WITH ACUTE RESPIRATORY FAILURE AND RENAL FAILURE--HAD PNEUMONIA AND UTI--ON VENTILATOR AND SHORT TERM DIALYS Physical Exam Vital Signs Vital Signs - First Documented 12/10/22 12/10/22 13:02 13:15 Temp 37.8 Pulse 76 Resp 16 B/P (MAP) 162/96 (118) Pulse Ox 93 O2 Delivery Room Air O2 Flow Rate 2.00 Capillary Refill : Less Than 3 Seconds Height, Weight, BMI Height: 6'0.00" Weight: 306lbs. 0.0oz. 138.866356cr; 42.00 BMI Method:Stated General Appearance: No Apparent Distress, WD/WN, Obese, Other (Responsive but somnolent and sluggish in reactions and conversation) HEENT: PERRL/EOMI, Normal ENT Inspection Neck: Normal Inspection Respiratory: Lungs Clear, Normal Breath Sounds, No Accessory Muscle Use Cardiovascular: Regular Rate, Rhythm, No Murmur Gastrointestinal: Normal Bowel Sounds, No Organomegaly, Soft Extremity: Normal Inspection, Pedal Edema Neurologic/Psychiatric: Other (Patient is hyper somnolent but does respond to questions and will follow commands. Mentation is sluggish. He responds to voice and touch but quickly falls asleep when interaction stops. Deficits seem to be global and no specific focal deficit was identified.) Skin: Normal Color, Warm/Dry Focused Exam Lactate Level 12/10/22 14:10: Lactic Acid Level 1.28 Lactic Acid Level Laboratory Tests Test 12/10/22 14:10 Lactic Acid Level 1.28 MMOL/L (0.50-2.00) Procedures/Interventions Date of ETT Placement: Oct 15, 2018 Time of ETT Placement: 1350 Progress/Results/Core Measures Suspected Sepsis SIRS Temperature: Pulse: 76 Respiratory Rate: 16 Laboratory Tests 12/10/22 14:10: White Blood Count 11.0 Blood Pressure 162 /96 Mean: 118 12/10/22 14:10: Lactic Acid Level 1.28 Laboratory Tests 12/10/22 14:10: Creatinine 1.18, INR Comment 1.0, Platelet Count 158, Total Bilirubin 1.1H Results/Orders Lab Results Laboratory Tests Test 12/10/22 13:15 12/10/22 13:35 12/10/22 14:10 12/10/22 14:23 Range/Units Glucometer 152 H 70-110 MG/DL Blood Gas Puncture Site LT RAD Blood Gas Patient Temperature 37.8 Arterial Blood pH 7.33 *L 7.37-7.43 Arterial Blood Partial Pressure CO2 55 H 35-45 MMHG Arterial Blood Partial Pressure O2 58 L 79-93 MMHG Arterial Blood HCO3 28 H 23-27 MMOL/L Arterial Blood Total CO2 29.8 21.0-31.0 MMOL/L Arterial Blood Oxygen Saturation 89 L 94-100 % Arterial Blood Base Excess 2.9 H -2.5-2.5 MMOL/L Yonathan Test YES-POS Blood Gas Ventilator Setting NO Blood Gas Inspired Oxygen NA White Blood Count 11.0 4.3-11.0 10^3/uL Red Blood Count 4.60 4.30-5.52 10^6/uL Hemoglobin 13.7 13.3-17.7 g/dL Hematocrit 42 40-54 % Mean Corpuscular Volume 92 80-99 fL Mean Corpuscular Hemoglobin 30 25-34 pg Mean Corpuscular Hemoglobin Concent 33 32-36 g/dL Red Cell Distribution Width 13.3 10.0-14.5 % Platelet Count 158 130-400 10^3/uL Mean Platelet Volume 10.9 9.0-12.2 fL Immature Granulocyte % (Auto) 1 % Neutrophils (%) (Auto) 70 42-75 % Lymphocytes (%) (Auto) 15 12-44 % Monocytes (%) (Auto) 10 0-12 % Eosinophils (%) (Auto) 3 0-10 % Basophils (%) (Auto) 1 0-10 % Neutrophils # (Auto) 7.7 1.8-7.8 X 10^3 Lymphocytes # (Auto) 1.7 1.0-4.0 X 10^3 Monocytes # (Auto) 1.2 H 0.0-1.0 X 10^3 Eosinophils # (Auto) 0.4 H 0.0-0.3 10^3/uL Basophils # (Auto) 0.1 0.0-0.1 10^3/uL Immature Granulocyte # (Auto) 0.1 0.0-0.1 10^3/uL Prothrombin Time 13.5 12.2-14.7 SEC INR Comment 1.0 0.8-1.4 Activated Partial Thromboplast Time 29 24-35 SEC Sodium Level 137 135-145 MMOL/L Potassium Level 4.2 3.6-5.0 MMOL/L Chloride Level 101 98-107 MMOL/L Carbon Dioxide Level 27 21-32 MMOL/L Anion Gap 9 5-14 MMOL/L Blood Urea Nitrogen 14 7-18 MG/DL Creatinine 1.18 0.60-1.30 MG/DL Estimat Glomerular Filtration Rate 72 BUN/Creatinine Ratio 12 Glucose Level 169 H 70-105 MG/DL Lactic Acid Level 1.28 0.50-2.00 MMOL/L Calcium Level 10.3 H 8.5-10.1 MG/DL Corrected Calcium 10.8 H 8.5-10.1 MG/DL Total Bilirubin 1.1 H 0.1-1.0 MG/DL Aspartate Amino Transf (AST/SGOT) 16 5-34 U/L Alanine Aminotransferase (ALT/SGPT) 16 0-55 U/L Alkaline Phosphatase 101 40-136 U/L C-Reactive Protein High Sensitivity 5.47 H 0.00-0.50 MG/DL Total Protein 6.1 L 6.4-8.2 GM/DL Albumin 3.4 3.2-4.5 GM/DL Serum Alcohol < 10 <10 MG/DL Urine Color YELLOW Urine Clarity CLEAR Urine pH 5.5 5-9 Urine Specific [place] 1.020 1.016-1.022 Urine Protein NEGATIVE NEGATIVE Urine Glucose (UA) TRACE H NEGATIVE Urine Ketones NEGATIVE NEGATIVE Urine Nitrite NEGATIVE NEGATIVE Urine Bilirubin NEGATIVE NEGATIVE Urine Urobilinogen 0.2 < = 1.0 MG/DL Urine Leukocyte Esterase NEGATIVE NEGATIVE Urine RBC (Auto) NEGATIVE NEGATIVE Urine RBC NONE /HPF Urine WBC NONE /HPF Urine Crystals NONE /LPF Urine Bacteria NEGATIVE /HPF Urine Casts NONE /LPF Urine Mucus NEGATIVE /LPF Urine Culture Indicated NO Urine Opiates Screen NEGATIVE NEGATIVE Urine Oxycodone Screen POSITIVE H NEGATIVE Urine Methadone Screen NEGATIVE NEGATIVE Urine Propoxyphene Screen NEGATIVE NEGATIVE Urine Barbiturates Screen NEGATIVE NEGATIVE Ur Tricyclic Antidepressants Screen NEGATIVE NEGATIVE Urine Phencyclidine Screen NEGATIVE NEGATIVE Urine Amphetamines Screen NEGATIVE NEGATIVE Urine Methamphetamines Screen NEGATIVE NEGATIVE Urine Benzodiazepines Screen POSITIVE H NEGATIVE Urine Cocaine Screen NEGATIVE NEGATIVE Urine Cannabinoids Screen POSITIVE H NEGATIVE Test 12/10/22 15:33 Range/Units Erythrocyte Sedimentation Rate 41 H 0-30 MM/HR My Orders Orders - REBECA SAMS MD Accucheck Stat ONCE (12/10/22 13:10) Ed Iv/Invasive Line Start (12/10/22 13:10) Ns Iv 1000 Ml (Sodium Chloride 0.9%) (12/10/22 13:15) Cbc With Automated Diff (12/10/22 13:10) Comprehensive Metabolic Panel (12/10/22 13:10) Blood Culture (12/10/22 13:10) Sputum Culture (12/10/22 13:10) Urinalysis (12/10/22 13:10) Urine Culture (12/10/22 13:10) Protime With Inr (12/10/22 13:10) Partial Thromboplastin Time (12/10/22 13:10) Chest 1 View, Ap/Pa Only (12/10/22 13:10) Vital Signs Adult Sepsis Patie Q15M (12/10/22 13:10) O2 (12/10/22 13:10) Remove Rings In Anticipation O (12/10/22 13:10) Lactic Acid Analyzer (12/10/22 13:10) Alcohol (12/10/22 13:10) Hs C Reactive Protein (12/10/22 13:10) Drug Screen Stat (Urine) (12/10/22 13:10) Arterial Blood Gas (12/10/22 13:15) Arterial Blood Draw - Obtain (12/10/22 ) Lidocaine 2% (Urojet) (Xylocaine Urojet) (12/10/22 14:16) Erythrocyte Sedimentation Rate (12/10/22 15:27) Rt Ed Bilevel Assessment (12/10/22 15:27) Ed Admission (Communication) (12/10/22 15:41) Bipap (Bilevel) Set Up (12/10/22 15:55) Vital Signs/I&O 12/10/22 12/10/22 12/10/22 13:02 13:15 15:56 Temp 37.8 Pulse 76 77 Resp 16 20 B/P (MAP) 162/96 (118) Pulse Ox 93 95 98 O2 Delivery Room Air Nasal Cannula O2 Flow Rate 2.00 35.00 Capillary Refill : Less Than 3 Seconds Blood Pressure Mean: 118 Point of Care Testing Finger Stick Blood Glucose: 152 Blood Glucose Action Taken: DR. HASSAN INFORMED Progress Note #1: Time: 15:35 Progress Note No major abnormalities were detected in the patient's work-up. A thorough work- up was pursued including labs that were interpreted by me. Labs reviewed were CBC, CMP, CRP, lactic acid, ABG, urinalysis, and UDS. UDS was positive for marijuana, oxycodone, and benzodiazepines. CRP was modestly elevated. Chest x- ray was unremarkable. Based on clinical presentation, history, and work-up, I suspect he is experiencing altered mental status from polypharmacy adverse effects. He has also had a change in social circumstances at home with his mother being admitted to the hospital. This may have resulted in a change in his usage of medications as she is the one that typically helps him with medications. Patient was not hypoglycemic. There is no obvious source of infection. Although his PCO2 on ABG appears at baseline presently, he does have significant potential for developing hypercarbia with worsening of his mental status. He has required admission previously for CO2 narcosis and respiratory failure. We will initiate BiPAP. I have discussed the scenario with Dr. Jimenez who is agreeable to admission. He will be admitted to the ICU for observation on BiPAP. Patient was notably hypertensive on admission and Dr. Jimenez was notified of this. Progress Note #2: Progress Note Report [facility]str[facility] Diagnostic Imaging Diagonstic Imaging: Xray Plain Films/CT/US/NM/MRI: chest Comments NAME: STEVEN STEPHENS MED REC#: [id number] PT STATUS: REG ER : 1965 PHYSICIAN: REBECA SAMS MD ADMIT DATE: 12/10/22/ER Signed Date of Exam:12/10/22 CHEST 1 VIEW, AP/PA ONLY INDICATION: Sepsis. COMPARISON: 08/27/2022. FINDINGS: Given portable AP technique with apical lordotic orientation, the mediastinal contour is stable. The heart is mildly enlarged and increased, and there is no hernán pulmonary edema. There is some left lingular and basilar partial atelectasis. IMPRESSION: Mild cardiomegaly and mild zones of left infrahilar and basilar partial atelectasis. No hernán edema or pleural pathology. Dictated by: Dictated on workstation # [id number] Dict: 12/10/22 1337 Trans: 12/10/22 1559 [id number] Interpreted by: MALLORY LÓPEZ Electronically signed by: MALLORY LÓPEZ 12/10/22 1559 Departure Communication (Admissions) Time/Spoke to Admitting Phy: 15:35 Dr. Jimenez Impression Primary Impression: Altered mental status Qualified Codes: R41.82 - Altered mental status, unspecified Additional Impressions: Generalized weakness COPD (chronic obstructive pulmonary disease) Qualified Codes: J44.9 - Chronic obstructive pulmonary disease, unspecified Disposition: 09 ADMITTED INPATIENT Condition: Stable Admissions Decision to Admit Reason: Admit from ER (General) Decision to Admit/Date: Dec 10, 2022 Time/Decision to Admit Time: 15:35 Departure-Patient Inst. Referrals: BRAD BENITEZ DO (PCP/Family) Primary Care Physician REBECA SAMS MD Dec 10, 2022 15:40
[2022-12-10 15:56] VITALS: BP 181/90
[2022-12-10] MEDS ORDERED: diphenhydrAMINE 25 MG TAB (BENADRYL) PO PRN (16:30)
[2022-12-10] MEDS ORDERED: BISACODYL 10 MG SUPP (DULCOLAX) PR PRN (16:30)
[2022-12-10] MEDS ORDERED: ANTACID SUSP 30 ML UDC (MYLANTA) PO PRN (16:30)
[2022-12-10] MEDS ORDERED: MELATONIN 3 MG TABLET PO PRN (16:30)
[2022-12-10] MEDS ORDERED: LACTULOSE SYRUP 10GM/15ML (ENULOSE) 30ML UDC PO PRN (16:30)
[2022-12-10] MEDS ORDERED: NS IV 500 ML 500 ML IV PRN (16:30)
[2022-12-10] MEDS ORDERED: ACETAMINOPHEN 325 MG TABLET PO PRN (16:30)
[2022-12-10] MEDS ORDERED: diphenhydrAMINE 50 MG/ML INJ (BENADRYL) IVP PRN (16:30)
[2022-12-10] MEDS ORDERED: CALCIUM CARBONATE 500 MG (TUMS) TAB.CHEW PO PRN (16:30)
[2022-12-10] MEDS ORDERED: ONDANSETRON 4 MG (ZOFRAN) ORAL DISSOLVE TAB PO PRN (16:30)
[2022-12-10] MEDS ORDERED: ONDANSETRON 4 MG/2 ML (SDV) Z0FRAN IV PRN (16:30)
[2022-12-10] MEDS ORDERED: MILK OF MAGNESIA 400 MG/5 ML 30 ML UDC PO PRN (16:30)
[2022-12-10] MEDS ORDERED: polyethylene glycoL POWDER 17 GM (MIRALAX) PACK PO PRN (16:30)
[2022-12-10] MEDS ORDERED: ENOXAPARIN 40 MG/0.4 ML (LOVENOX) SYR SC SCH (17:15)
--- NOTE | 2022-12-10 17:36 | Tele-ICU Consult ---
History of Present Illness History of Present Illness Date Seen by Provider: Dec 10, 2022 Time Seen by Provider: 17:34 Date of Admission History of Present Illness (Tele-ICU Physician , consultation as per request of PCP Service provided via interactive audio and video tele[employer] E-CARE system to a patient admitted to ICU bed in [facility]. Available chart/ vitals / labs / Images reviewed H&P is from ER notes Patient's information available about PMH, Shx, Fhx allergy reviewed inEMR. ROS as per chart and RN report Now in ICU, hemodynamically stable Video assessment done using teleICU camera, rest of exam as per RN Discussed with RN. Hospital course: (12/10) 57M admitted with AMS, COPD, + tox screen, AMS thought to be d/t polypharmacy effects, ABG at baseline, pt placed on Bipap to prevent further hypercarbia, CXR & UA neg for infection A/P Acute on chronic hypercarbic respiratory failure due to possible underlying COPD with possible sleep apnea compounded by narcotic / benzo and cannabies administration ( prescribed oxycodone, Xanax, gabapentin, and Phenergan -on Bipqp 18/6 40 % rr 22 Tv 500 - somnolent - will repeat abg if no improvement , or @am if will became AAO soon Encephalopathy - CTH - noacute finding , -- most likely meds and Co2 effect Reportedly pisode of vomiting yesterday and has complained of some abdominal pain - no c/o pain in ER - follow Uriinary retention - villalobos placed - 1L out - follow DM - accuchecks and ISS HTN - follow - on metoprolol MLT - HR 60s now crhonic hypoxic res failute - on 2 L o2 at home RA- ? off prednisone Chronic narcotic use, h/o multiple drugs abuse , overdoses wiht intubations - as per chart Moderate obesity Hepatitis C Lines : periph , (Central Line Necessity Reviewed) Villalobos: + 12/10 OG: Nutrition: Analgesia: Anxiety/ delirium VTE Prophylaxis: gurwinder Stress Ulcer Prophylaxis: na Plans in collaboration with bedside consultants and IM MDs. Discussed with RN to reach out if any questions or concerns A total of 32 minutes of critical care time was devoted to this patient today, required to treat and/or prevent further deterioration of critical care condition ( as above ) . I am remotely monitoring this patient from another state. I am unable to do the bedside exam, and history/physical and pertinent information is taken from other notes in the computer and bedside staff. . Allergies and Home Medications Allergies Coded Allergies: hydrocodone (Verified Allergy, Unknown, TAKES OXYCODONE AT HOME, 05/05/16) STATES IS NOT ALLERGIC TO THIS MED latex (Verified Allergy, Unknown, 05/05/16) Home Medications Albuterol Sulfate 8.5 Gm Hfa.aer.ad, 2 PUFF IH QID PRN for SHORTNESS OF BREATH, (Reported) Alprazolam 1 Mg Tablet, 1 MG PO BID, (Reported) Amlodipine Besylate 5 Mg Tablet, 5 MG PO DAILY, (Reported) Ascorbate Calcium 500 Mg Tablet, 500 MG PO DAILY, (Reported) Cholecalciferol (Vitamin D3) 50 Mcg (2000 Unit) Capsule, 50 MCG PO DAILY, (Reported) Clotrimazole/Betamethasone Dip 1 %-0.05 % Cream..g., 1 APPLIC TP TID PRN for RASH, (Reported) Duloxetine HCl 60 Mg Capsule.dr, 60 MG PO DAILY, (Reported) Gabapentin 800 Mg Tablet, 800 MG PO TID, (Reported) Insulin Detemir 100 Unit/Ml (3 Ml) Insuln.pen, 40 UNIT SQ BID, (Reported) Insulin Lispro 100 Unit/1 Ml Insuln.pen, UNITS SQ AC, (Reported) USES PER SLIDING SCALE Ketoconazole 2 % Cream..g., 1 APPLIC TP BID PRN for RASH, (Reported) Lisinopril 20 Mg Tablet, 20 MG PO DAILY, (Reported) Lisinopril 20 Mg Tablet, 20 MG PO HS PRN for BLOOD PRESSURE, (Reported) Metoprolol Tartrate 25 Mg Tablet, 25 MG PO BID PRN for HEART RATE, (Reported) Mometasone/Formoterol 13 Gm Hfa.aer.ad, 1 PUFF INH BID, (Reported) Oxycodone HCl 30 Mg Tablet, 30 MG PO Q4 -6H PRN for BREAKTHROUGH PAIN, (Reported) Oxycodone HCl 80 Mg Tab.er.12h, 80 MG PO BID Prescribed by: FREDDIE JIMENEZ on 07/08/22 1101 Prednisone 20 Mg Tab, 20 MG PO DAILY, (Reported) Promethazine HCl 25 Mg Tablet, 25 MG PO BID PRN for NAUSEA/VOMITING-2ND LINE, (Reported) Rosuvastatin Calcium 40 Mg Tablet, 40 MG PO DAILY, (Reported) Past Medical/Social/Family Hx Patient Social History Tobacco Use?: No Smoking Status: Former Smoker Use of E-Cig and/or Vaping dev: Unable to obtain Substance use?: Unable to obtain Alcohol Use?: Unable to obtain Pt stated abuse/neglect: Unable to obtain Immunizations Up To Date First/Initial COVID19 Vaccinat: X1 Second COVID19 Vaccination Jaden: YES Tetanus Booster (TDap): Unknown Date of Pneumonia Vaccine: Nov 12, 2012 Current Status Advance Directives: Unable to obtain Communicates: Verbally Primary Language: Luxembourger Preferred Spoken Language: Luxembourger Is interpretation needed?: No Past Medical History PMHx: Mononeuritis multiplex Rheumatoid arthritis Hepatitis C Diabetes mellitus HTN SurgHx: Liver biopsy Back surgery Family Medical History Family Hx: IS. SOCIAL HISTORY: -SMOKES 1 1/2 PPD -ETOH--HX OF ABUSE, CLAIMS NO RECENT USE -DRUGS--LONGSTANDING EXTENSIVE HISTORY OF DRUG ABUSE, INCLUDING METHAMPHETAMINES, THC, RX DRUGS--ESPECIALLY OPIATES AND BENZODIAZEPINES. HAS HAD MULTIPLE OVERDOSES--NON-SUICIDAL--HAS REQUIRED INTUBATIONS MULTIPLE TIMES IN THE PAST DUE TO OVERDOSES. PAST SURGICAL HISTORY: -BILILARY STENT -BACK SURGERY--LUMBAR HERNIATED DISC -CARDIAC CATH 2009--NORMAL -NERVE BIOPSY RIGHT LEG -SKIN GRAFTS ADDITIONAL PAST MEDICAL HISTORY: -COPD, O2 DEPENDENT AT 2 L/NC, WITH MULTITUDE OF EPISODES OF ACUTE ON CHRONIC RESPIRATORY FAILURE REQUIRING INTUBATION MULTIPLE TIMES, WITH SOME BEING DUE TO DRUG OVERDOSES. - VASCULITIS - CHRONIC LEG EDEMA --RIGHT > LEFT, THIS SIDE HAS BEEN MORE AFFECTED BY LANCE; HAS WORN BRACES ON BOTH LEGS IN THE PAST - WHEELCHAIR BOUND DUE TO MORBID OBESITY, CHRONIC GENERALIZED PAIN, GENERALIZED DEBILITY AND NEUROPATHY--PT CAN STAND FOR TRANSFERS. - HAS BEEN ON DIALYSIS IN THE PAST, BRIEFLY FOR ACUTE RENAL FAILURE - ELEVATED URIC ACID - CHRONIC GENERALIZED PAIN COMPLAINTS - 3RD DEGREE LANCE TO RIGHT LEG 06/2013, WITH SKIN GRAFTS--CAUSED BY PT FALLING ASLEEP WITH LIGHTED CIGARETTE. - CELLULITIS OF RIGHT LEG 09/2015--SEPTIC SHOCK WITH ACUTE RESPIRATORY FAILURE AND RENAL FAILURE--HAD PNEUMONIA AND UTI--ON VENTILATOR AND SHORT TERM DIALYS Review of Systems Constitutional: see HPI Focused Exam Possible Source: Other Lactate Level 12/10/22 14:10: Lactic Acid Level 1.28 Height, Weight, BMI Height: 6'0.00" Weight: 306lbs. 0.0oz. 138.709760nq; 42.30 BMI Method:Stated Lactic Acid Level Laboratory Tests Test 12/10/22 14:10 Lactic Acid Level 1.28 MMOL/L (0.50-2.00) Exam Exam Patient acknowledged, consented, and participated in this virtual visit which was conducted using real time audio/video Vital Signs Date Time Temp Pulse Resp B/P (MAP) Pulse Ox O2 Delivery O2 Flow Rate FiO2 12/10/22 16:38 36.5 12/10/22 16:30 68 15 183/96 (125) 97 NIV Bilevel 35.00 12/10/22 16:25 69 12/10/22 16:18 79 20 194/103 95 NIV Bilevel 12/10/22 16:15 70 190/104 (132) NIV Bilevel 35.00 12/10/22 15:56 77 20 98 35.00 12/10/22 13:15 95 Nasal Cannula 2.00 12/10/22 13:02 37.8 76 16 162/96 (118) 93 Room Air Height & Weight Height: 6'0.00" Weight: 306lbs. 0.0oz. 138.502785wa; 42.30 BMI Method:Stated General Appearance: Other Capillary Refill: Less Than 3 Seconds Results Lab Laboratory Tests 12/10/22 14:10 Assessment/Plan Assessment/Plan 1 DAMIAN ESQUIVEL MD Dec 10, 2022 17:36
[2022-12-10] MEDS: ENOXAPARIN 40 MG/0.4 ML (LOVENOX) SYR SC SCH (18:11)
[2022-12-10] MEDS: inSUlin ASPART (NovoLOG) 1 UNIT/0.01 ML (CHARGE PER UNIT) SC SCH ×2 (18:35→23:47)
[2022-12-10 19:10] VITALS: BP 153/79
[2022-12-10 20:27] LABS: ABG BASE EXCESS 2.7 MMOL/L (-2.5-2.5); ABG OXYGEN SATURATION 91 % (94-100); ABG PCO2 48 MMHG (35-45); ABG PH 7.37 (7.37-7.43); ABG PO2 53 MMHG (79-93); ABG TCO2 29.3 MMOL/L (21.0-31.0)
[2022-12-10 20:33] LABS: ALLENS TEST YES-POS; INSPIRED O2 25%
[2022-12-10 20:34] LABS: PATIENT TEMP 36.2; VENTILATOR NO
[2022-12-10] MEDS ORDERED: oxyCODONE ER 40 MG (oxyCONTIN CR) TAB PO SCH (21:00)
[2022-12-10] MEDS ORDERED: inSUlin ASPART (NovoLOG) 1 UNIT/0.01 ML (CHARGE PER UNIT) SC SCH (21:00)
[2022-12-10] MEDS: SENNOSIDES 8.6 MG (SENOKOT) TAB PO SCH (21:10)
[2022-12-10] MEDS: DOCUSATE SODIUM 100 MG (COLACE) CAP PO SCH (21:10)
[2022-12-10] MEDS: GABAPENTIN 600 MG (NEURONTIN) TAB PO SCH (21:10)
[2022-12-10] MEDS: oxyCODONE ER 20 MG (OxyCONTIN CR) TAB PO SCH (21:10)
[2022-12-11] MEDS: LABETALOL HCL 20 MG/4 ML VIAL IV PRN ×4 (01:05→09:00)
[2022-12-11 04:29] LABS: HEMOGLOBIN 13.1 g/dL (13.3-17.7)
[2022-12-11 04:31] LABS: BASOPHILS % (AUTO) 0 % (0-10); EOSINOPHILS # (AUTO) 0.3 10^3/uL (0.0-0.3); EOSINOPHILS % (AUTO) 3 % (0-10); HEMATOCRIT 39 % (40-54); LYMPHOCYTES # (AUTO) 1.6 10^3/uL (1.0-4.0); LYMPHOCYTES % (AUTO) 16 % (12-44); MEAN CORPUSCULAR HEMOGLOBIN 30 pg (25-34); MEAN CORPUSCULAR HGB CONC 34 g/dL (32-36); MEAN CORPUSCULAR VOLUME 91 fL (80-99); MONOCYTES # (AUTO) 1.1 10^3/uL (0.0-1.0); MONOCYTES % (AUTO) 11 % (0-12); NEUTROPHILS # (AUTO) 6.8 10^3/uL (1.8-7.8); NEUTROPHILS % (AUTO) 69 % (42-75); PLATELET COUNT 127 10^3/uL (130-400); WHITE BLOOD COUNT 9.8 10^3/uL (4.3-11.0)
[2022-12-11 04:47] LABS: POTASSIUM 3.7 MMOL/L (3.6-5.0)
[2022-12-11 04:49] LABS: CALCIUM 9.8 MG/DL (8.5-10.1)
[2022-12-11 04:53] LABS: CREATININE SERUM 0.93 MG/DL (0.60-1.30)
[2022-12-11 04:55] LABS: MAGNESIUM 1.6 MG/DL (1.6-2.4)
[2022-12-11] MEDS ORDERED: MAGNESIUM 1 GM/100 ML IVPB 400 ML IV ONE (05:37)
[2022-12-11] MEDS: MAGNESIUM 1 GM/100 ML IVPB 100 ML IV SCH ×4 (05:44→10:27)
[2022-12-11] MEDS: ENOXAPARIN 40 MG/0.4 ML (LOVENOX) SYR SC SCH (05:44)
[2022-12-11] MEDS ORDERED: MAGNESIUM 1 GM/100 ML IVPB 100 ML IV SCH (06:00)
[2022-12-11] MEDS ORDERED: POTASSIUM CL 10MEQ/50ML IVPB 50 ML IV SCH (06:00)
[2022-12-11] MEDS ORDERED: KCL 20 MEQ TAB (K-DUR) PO SCH (06:00)
[2022-12-11] MEDS: inSUlin ASPART (NovoLOG) 1 UNIT/0.01 ML (CHARGE PER UNIT) SC SCH (06:32)
[2022-12-11] MEDS: GABAPENTIN 600 MG (NEURONTIN) TAB PO SCH (08:04)
[2022-12-11] MEDS: DOCUSATE SODIUM 100 MG (COLACE) CAP PO SCH (08:05)
[2022-12-11] MEDS: SENNOSIDES 8.6 MG (SENOKOT) TAB PO SCH (08:05)
[2022-12-11] MEDS: oxyCODONE ER 20 MG (OxyCONTIN CR) TAB PO SCH (08:05)
[2022-12-11] MEDS ORDERED: KCL 20 MEQ TAB (K-DUR) PO ONE (09:00)
--- NOTE | 2022-12-11 09:32 | Tele-ICU Progress Note ---
Subjective Date Seen by a Provider: Dec 11, 2022 Time Seen by a Provider: 09:32 Subjective/Events-last exam (Tele-ICU Physician , Progress Note ) Service provided via interactive audio and video telecommunications E-CARE system to a patient admitted to ICU bed in [facility]. Patient is seen today due to persistent need of ICU care Available chart/ vitals / labs / Images reviewed Video assessment done using teleICU camera, rest of exam as per RN Discussed with RN Events overnight : Afebrile hemodynamically stable Respiratory - 2l I/O = neg Drips: Pressors- no Hospital course: (12/10) 57M admitted with AMS, COPD, + tox screen, AMS thought to be d/t polypharmacy effects, ABG at baseline, pt placed on Bipap to prevent further hypercarbia, CXR & UA neg for infection A/P Acute on chronic hypercarbic respiratory failure due to possible underlying COPD with possible sleep apnea compounded by narcotic / benzo and cannabies administration ( prescribed oxycodone, Xanax, gabapentin, and Phenergan -on Bipqp 18/6 40 % rr 22 Tv 500- OFF bipap last night - AAO now , no recollection of last 24 h Encephalopathy - CTH - noacute finding , -- most likely meds and Co2 effect RESOLVED Reportedly episode of vomiting yesterday and has complained of some abdominal pain - no c/o pain or vomiting now Uriinary retention - villalobos placed - 1L out - follow DM - long acting insulin started - accuchecks and ISS HTN - to resume home meds crhonic hypoxic res failute - on 2 L o2 at home - RA- ? off prednisone Chronic narcotic use, h/o multiple drugs abuse , overdoses wiht intubations - as per chart Moderate obesity Hepatitis C Lines : periph , (Central Line Necessity Reviewed) Villalobos: + 12/10 OG: Nutrition: start PO Analgesia: Anxiety/ delirium VTE Prophylaxis: gurwinder Stress Ulcer Prophylaxis: na Plans in collaboration with bedside consultants and IM MDs. Discussed with RN to reach out if any questions or concerns A total of 25 minutes of critical care time was devoted to this patient today, required to treat and/or prevent further deterioration of critical care condition ( as above ) . I am remotely monitoring this patient from another state. I am unable to do the bedside exam, and history/physical and pertinent information is taken from other notes in the computer and bedside staff. . Sepsis Event Evaluation Height, Weight, BMI Height: 6'0.00" Weight: 306lbs. 0.0oz. 138.016349li; 42.30 BMI Method:Stated Focused Exam Lactate Level 12/10/22 14:10: Lactic Acid Level 1.28 Exam Exam Patient acknowledged, consented, and participated in this virtual visit which was conducted using real time audio/video Vital Signs Date Time Temp Pulse Resp B/P (MAP) Pulse Ox O2 Delivery O2 Flow Rate FiO2 12/11/22 09:00 91 13 172/102 (125) 95 High Flow N/C 2.00 12/11/22 08:00 38.7 12/11/22 08:00 94 15 177/81 (113) 93 High Flow N/C 2.00 12/11/22 07:09 89 12/11/22 07:00 88 14 181/85 (117) 97 High Flow N/C 2.00 12/11/22 06:58 86 23 168/81 (110) 97 High Flow N/C 2.00 12/11/22 06:00 93 21 195/86 (122) 100 High Flow N/C 2.00 12/11/22 05:00 91 21 176/90 (115) 100 High Flow N/C 2.00 12/11/22 04:00 82 25 185/89 (122) 100 High Flow N/C 2.00 12/11/22 04:00 100 Nasal Cannula 2.00 12/11/22 04:00 36.4 12/11/22 03:23 80 23 171/73 (84) 100 High Flow N/C 2.00 12/11/22 03:00 87 19 185/85 (113) 100 High Flow N/C 2.00 12/11/22 02:00 82 16 163/74 (104) 93 High Flow N/C 2.00 12/11/22 01:00 86 12/11/22 01:00 86 23 167/81 (109) High Flow N/C 2.00 12/11/22 00:37 High Flow N/C 2.00 12/11/22 00:37 89 18 100 High Flow N/C 2.00 12/11/22 00:00 36.6 12/11/22 00:00 85 23 147/73 (96) 95 High Flow N/C 3.00 12/10/22 23:59 100 Nasal Cannula 3.00 12/10/22 23:00 82 25 150/75 (111) 97 High Flow N/C 3.00 12/10/22 22:46 High Flow N/C 3.00 12/10/22 22:42 90 14 187/93 (118) 100 High Flow N/C 5.00 12/10/22 22:39 74 16 215/107 (138) 100 High Flow N/C 5.00 12/10/22 22:00 82 17 189/95 (126) 98 High Flow N/C 5.00 12/10/22 21:16 High Flow N/C 5.00 12/10/22 21:01 91 16 173/85 (114) 100 NIV Bilevel 25.00 12/10/22 20:00 100 NIV Bilevel 25 12/10/22 20:00 66 19 157/86 (109) 97 NIV Bilevel 25.00 12/10/22 19:56 36.2 12/10/22 19:45 72 27 170/90 (112) 99 NIV Bilevel 25.00 12/10/22 19:30 76 11 196/95 (128) 100 NIV Bilevel 25.00 12/10/22 19:15 75 20 137/74 (96) 99 NIV Bilevel 25.00 12/10/22 19:10 77 22 100 35.00 12/10/22 19:00 NIV Bilevel 25.00 12/10/22 19:00 77 12/10/22 19:00 77 19 153/79 (104) 100 NIV Bilevel 25.00 12/10/22 18:00 64 16 178/94 (122) 100 NIV Bilevel 35.00 12/10/22 17:30 64 20 156/82 (106) 98 NIV Bilevel 35.00 12/10/22 17:15 66 16 150/92 (111) 98 NIV Bilevel 35.00 12/10/22 17:00 65 16 158/83 (108) 98 NIV Bilevel 35.00 12/10/22 16:45 68 18 178/94 (122) 98 NIV Bilevel 35.00 12/10/22 16:38 36.5 12/10/22 16:30 68 15 183/96 (125) 97 NIV Bilevel 35.00 12/10/22 16:25 69 12/10/22 16:18 79 20 194/103 95 NIV Bilevel 12/10/22 16:15 70 190/104 (132) NIV Bilevel 35.00 12/10/22 16:11 100 NIV Bilevel 35 12/10/22 15:56 77 20 98 35.00 12/10/22 13:15 95 Nasal Cannula 2.00 12/10/22 13:02 37.8 76 16 162/96 (118) 93 Room Air I & O 12/11/22 07:00 Intake Total 100 ml Output Total 2075 ml Balance -1975 ml Height & Weight Height: 6'0.00" Weight: 306lbs. 0.0oz. 138.750093sg; 42.30 BMI Method:Stated General Appearance: No Apparent Distress, WD/WN, Obese, Other (Responsive but somnolent and sluggish in reactions and conversation) HEENT: PERRL/EOMI, Normal ENT Inspection Neck: Normal Inspection Respiratory: Lungs Clear, Normal Breath Sounds, No Accessory Muscle Use Cardiovascular: Regular Rate, Rhythm, No Murmur Capillary Refill: Less Than 3 Seconds Extremity: Normal Inspection, Pedal Edema Neurologic/Psychiatric: Other (Patient is hyper somnolent but does respond to questions and will follow commands. Mentation is sluggish. He responds to voice and touch but quickly falls asleep when interaction stops. Deficits seem to be global and no specific focal deficit was identified.) Skin: Normal Color, Warm/Dry Results Lab Laboratory Tests 12/10/22 14:10 12/11/22 04:04 Assessment/Plan Assessment/Plan 1 DAMIAN ESQUIVEL MD Dec 11, 2022 09:32
--- NOTE | 2022-12-11 10:20 | Diagnostic Imaging Report ---
INDICATION: Fever. Time of Exam: 8:50 AM Correlation is made with prior chest one day earlier. The heart is enlarged but stable. Lungs appear to be clear. No infiltrates are seen. There is no effusion or pneumothorax. IMPRESSION: No acute cardiopulmonary process is detected. Dictated by: Dictated on workstation # [id number]
[2022-12-11] MEDS ORDERED: SITA1TAB6 PO (10:51)
[2022-12-11] MEDS ORDERED: IBUP-2473 PO (10:51)
[2022-12-11] MEDS ORDERED: GLIM2TAB4 PO (10:51)
[2022-12-11] MEDS ORDERED: OXYC-527 PO (10:51)
[2022-12-11] MEDS ORDERED: PROM25TA14 PO (10:51)
[2022-12-11] MEDS ORDERED: OXYC80TA PO (10:51)
[2022-12-11] MEDS ORDERED: PRED10TA22 PC (11:53)
--- NOTE | 2022-12-11 20:04 | Short Stay Summary-Hospitalist ---
History of Present Illness HPI/Chief Complaint Chadwick Hagen is a 57 year old male with PMH COPD, chronic pain, mononeuritis multiplex, who presented with altered mental status. His confusion has resolved on my exam. He is not sure what happened. He is unable to provide a good history of when he has last taken all of his as needed medications. He says he has taken his others as prescribed. He denies fevers and chills. He denies shortness of breath and cough. He denies urinary symptoms. He denies any more pain than usual. He has not been taking any extra pain meds. He used to use a BiPAP at home, but he says someone came to clean it and never brought it back. Source: patient Exam Limitations: no limitations Date Seen 12/11/22 Time Seen by a Provider: 11:35 Attending Physician Gustavo Rosario DO PCP Admitting Physician: Freddie Jimenez MD Attending Physician: Freddie Jimenez MD Referring Physician Date of Admission Dec 10, 2022 at 16:01 Home Medications & Allergies Home Medications Reviewed patient Home Medication Reconciliation performed by pharmacy medication reconciliations wire technician and/or nursing. Patients Allergies have been reviewed. Allergies Allergies Coded Allergies hydrocodone (Verified Allergy, Unknown, TAKES OXYCODONE AT HOME, 05/05/16) STATES IS NOT ALLERGIC TO THIS MED latex (Verified Allergy, Unknown, 05/05/16) Past Foisfgl-Bqblbl-Ocdxsp Hx Patient Social History Tobacco Use?: No Smoking Status: Former Smoker Use of E-Cig and/or Vaping dev: Unable to obtain Substance use?: Unable to obtain Alcohol Use?: Unable to obtain Pt feels they are or have been: Unable to obtain Immunizations Up To Date First/Initial COVID19 Vaccinat: X1 Second COVID19 Vaccination Jaden: YES Tetanus Booster (TDap): Unknown PED Vaccines UTD: Yes Date of Pneumonia Vaccine: Nov 12, 2012 Seasonal Allergies Seasonal Allergies: No Current Status Advance Directives: Unable to obtain Communicates: Verbally Primary Language: Jamaican Preferred Spoken Language: Jamaican Is interpretation needed?: No Past Medical History Surgeries: Abdominal, Cardiac, Orthopedic Pneumonia, COPD Currently Using CPAP: Yes Currently Using BIPAP: Yes Chronic Edema/Swelling, Hypertension, Peripheral Vascular Headaches /Migraines, Neuropathy Sexually Transmitted Disease: No HIV/AIDS: No Bladder Infection, Kidney Stones, Renal Failure, UTI-Chronic Gastroesophageal Reflux, Liver Disease/Jaundice, Hepatitis, Gall Bladder Disease Degenerate Disk Disease, Arthritis, Rheumatoid Arthritis, Chronic Back Pain Diabetes, Insulin dep Loss of Vision: Denies Hearing Impairment: Denies Sleep Difficulties, Anxiety, Depression Blood Disorders: No PMHx: Mononeuritis multiplex Rheumatoid arthritis Hepatitis C Diabetes mellitus HTN SurgHx: Liver biopsy Back surgery Family Medical History Alcoholism 03 FATHER Diabetes mellitus 03 FATHER Family history: Allergy 03 MOTHER Family history: Asthma 03 MOTHER Family history: Hypertension 03 FATHER 03 MOTHER No Pertinent Family Hx IS. SOCIAL HISTORY: -SMOKES 1 1/2 PPD -ETOH--HX OF ABUSE, CLAIMS NO RECENT USE -DRUGS--LONGSTANDING EXTENSIVE HISTORY OF DRUG ABUSE, INCLUDING METHAMPHETAMINES, THC, RX DRUGS--ESPECIALLY OPIATES AND BENZODIAZEPINES. HAS HAD MULTIPLE OVERDOSES--NON-SUICIDAL--HAS REQUIRED INTUBATIONS MULTIPLE TIMES IN THE PAST DUE TO OVERDOSES. PAST SURGICAL HISTORY: -BILILARY STENT -BACK SURGERY--LUMBAR HERNIATED DISC -CARDIAC CATH 2009--NORMAL -NERVE BIOPSY RIGHT LEG -SKIN GRAFTS ADDITIONAL PAST MEDICAL HISTORY: -COPD, O2 DEPENDENT AT 2 L/NC, WITH MULTITUDE OF EPISODES OF ACUTE ON CHRONIC RESPIRATORY FAILURE REQUIRING INTUBATION MULTIPLE TIMES, WITH SOME BEING DUE TO DRUG OVERDOSES. - VASCULITIS - CHRONIC LEG EDEMA --RIGHT > LEFT, THIS SIDE HAS BEEN MORE AFFECTED BY LANCE; HAS WORN BRACES ON BOTH LEGS IN THE PAST - WHEELCHAIR BOUND DUE TO MORBID OBESITY, CHRONIC GENERALIZED PAIN, GENERALIZED DEBILITY AND NEUROPATHY--PT CAN STAND FOR TRANSFERS. - HAS BEEN ON DIALYSIS IN THE PAST, BRIEFLY FOR ACUTE RENAL FAILURE - ELEVATED URIC ACID - CHRONIC GENERALIZED PAIN COMPLAINTS - 3RD DEGREE LANCE TO RIGHT LEG 06/2013, WITH SKIN GRAFTS--CAUSED BY PT FALLING ASLEEP WITH LIGHTED CIGARETTE. - CELLULITIS OF RIGHT LEG 09/2015--SEPTIC SHOCK WITH ACUTE RESPIRATORY FAILURE AND RENAL FAILURE--HAD PNEUMONIA AND UTI--ON VENTILATOR AND SHORT TERM DIALYS Review of Systems Constitutional: no symptoms reported Respiratory: no symptoms reported Cardiovascular: no symptoms reported Gastrointestinal: no symptoms reported Physical Exam Physical Exam Vital Signs Vital Signs - First Documented 12/10/22 12/10/22 12/10/22 13:02 13:15 16:11 Temp 37.8 Pulse 76 Resp 16 B/P (MAP) 162/96 (118) Pulse Ox 93 O2 Delivery Room Air O2 Flow Rate 2.00 FiO2 35 Capillary Refill : Less Than 3 Seconds Height, Weight, BMI Height: 6'0.00" Weight: 306lbs. 0.0oz. 138.397560kf; 42.30 BMI Method:Stated General Appearance: No Apparent Distress, WD/WN, Obese HEENT: PERRL/EOMI, Pharynx Normal Neck: Normal Inspection, Supple Respiratory: Lungs Clear, Normal Breath Sounds, No Accessory Muscle Use, No Respiratory Distress Cardiovascular: Regular Rate, Rhythm, No Murmur Gastrointestinal: Normal Bowel Sounds, Non Tender, Soft Extremity: Normal Inspection, Pedal Edema Neurologic/Psychiatric: Alert, No Motor/Sensory Deficits, Normal Mood/Affect Skin: Normal Color, Warm/Dry Results Results/Procedures Labs Laboratory Tests 12/10/22 14:10 12/11/22 04:04 Patient resulted labs reviewed. Imaging: Reviewed Imaging Report Short Stay Diagnosis Discharge Diagnosis-Short Stay Admission Diagnosis Acute on chronic respiratory failure with hypoxia and hypercapnia Final Discharge Diagnosis Acute on chronic respiratory failure with hypoxia and hypercapnia Conclusion Plan Acute on chronic respiratory failure with hypoxia and hypercapnia COPD exacerbation Narcotic dependence Possibly medication related Given short course steroid burst Oxygen requirement at baseline Follow up with Dr. Liriano as scheduled Diagnosis/Problems Diagnosis/Problems (1) Acute on chronic respiratory failure with hypoxia and hypercapnia Status: Acute (2) COPD exacerbation Status: Acute (3) Narcotic dependence Status: Chronic (4) Mononeuritis multiplex Status: Chronic (5) Morbidly obese Status: Chronic FREDDIE JIMENEZ MD Dec 11, 2022 20:03
== END 2022-12-11 12:45 | disposition home or self-care (01) ==
LOC: EDUNIT# 12:53 → ER 12:55 → ICU 16:01
PROVIDERS: ADMIT Internal Medicine; ATTEND Internal Medicine
DX: J96.21 Acute and chronic respiratory failure with hypoxia (principal); J96.22 Acute and chronic respiratory failure with hypercapnia; J44.1 Chronic obstructive pulmonary disease with (acute) exacerbation; R41.82 Altered mental status, unspecified; Z87.891 Personal history of nicotine dependence; Z99.81 Dependence on supplemental oxygen
CPT/HCPCS: 36600; 71045 ×2; 80048; 80053; 80306; 81000; 82805; 82947 ×2; 83605 ×2; 83735; 85025 ×2; 85610; 85652; 85730; 86141; 87040 ×2; 87081; 87088; 96372 ×2; 96375; 96376; 99285; G0378; G0480; 36415; 80320

== ENCOUNTER 2022-12-29 04:27 | Inpatient (IN) | payer MEDICARE, MEDICAID ==
[~2022-12-29] VITALS: Ht 180.3 cm; Wt 128.9 kg
[~2022-12-29 04:27] MED LIST changes: +GLIM2TAB4 PO; +IBUP-2473 PO; +PRED10TA22 PC
[2022-12-29] MEDS ORDERED: CEFEPIME INJECTION 1,000 MG in NS (IVPB) 50 ML IV ONE (04:30)
[2022-12-29] MEDS ORDERED: methylPREDNISolone 125 MG (Solu-MEDROL) VIAL IVP ONE (04:30)
[2022-12-29] MEDS ORDERED: LIDOCAINE UROJET 2% GEL 10 ML PKG TOP ONE (04:30)
[2022-12-29] MEDS ORDERED: NS IV 1000 ML 1,000 ML IV SCH (04:30)
[2022-12-29] MEDS ORDERED: RT-ALBUTEROL/IPRATROPIUM 3 ML (DUONEB) VIAL INH ONE (04:45)
[2022-12-29 04:48] LABS: ABG BASE EXCESS 0.5 MMOL/L (-2.5-2.5); ABG OXYGEN SATURATION 99 % (94-100); ABG PCO2 29 MMHG (35-45); ABG PH 7.51 (7.37-7.43); ABG PO2 116 MMHG (79-93); ABG TCO2 24.2 MMOL/L (21.0-31.0)
[2022-12-29 04:49] LABS: ALLENS TEST YES-POS; INSPIRED O2 5L; PATIENT TEMP 36.8; VENTILATOR NO
[2022-12-29 04:52] LABS: BASOPHILS % (AUTO) 0 % (0-10); EOSINOPHILS # (AUTO) 0.1 10^3/uL (0.0-0.3); EOSINOPHILS % (AUTO) 1 % (0-10); HEMATOCRIT 42 % (40-54); HEMOGLOBIN 14.2 g/dL (13.3-17.7); LYMPHOCYTES % (AUTO) 7 % (12-44); MEAN CORPUSCULAR HEMOGLOBIN 31 pg (25-34); MEAN CORPUSCULAR HGB CONC 34 g/dL (32-36); MEAN CORPUSCULAR VOLUME 89 fL (80-99); MEAN PLATELET VOLUME 10.4 fL (9.0-12.2); MONOCYTES # (AUTO) 1.3 10^3/uL (0.0-1.0); MONOCYTES % (AUTO) 10 % (0-12); NEUTROPHILS # (AUTO) 11.2 10^3/uL (1.8-7.8); NEUTROPHILS % (AUTO) 81 % (42-75); PLATELET COUNT 177 10^3/uL (130-400); WHITE BLOOD COUNT 13.8 10^3/uL (4.3-11.0)
[2022-12-29 04:57] VITALS: BP 181/125
[2022-12-29 05:02] LABS: INR 0.9 (0.8-1.4); PROTHROMBIN TIME PATIENT 12.8 SEC (12.2-14.7)
[2022-12-29 05:08] LABS: CHLORIDE 104 MMOL/L (98-107); POTASSIUM 4.3 MMOL/L (3.6-5.0); SODIUM 137 MMOL/L (135-145)
[2022-12-29 05:09] LABS: ALBUMIN 3.5 GM/DL (3.2-4.5)
[2022-12-29 05:10] LABS: AMYLASE 41 U/L (25-125); CALCIUM 10.7 MG/DL (8.5-10.1)
[2022-12-29 05:11] LABS: GLUCOSE 164 MG/DL (70-105); TOTAL PROTEIN 6.6 GM/DL (6.4-8.2)
[2022-12-29 05:12] LABS: CARBON DIOXIDE 20 MMOL/L (21-32)
[2022-12-29 05:13] LABS: BILIRUBIN,TOTAL 1.3 MG/DL (0.1-1.0)
[2022-12-29 05:14] LABS: BILIRUBIN,URINE NEGATIVE (NEGATIVE); CLARITY,URINE CLEAR; COLOR,URINE YELLOW; GLUCOSE, URINE (UA) NEGATIVE (NEGATIVE); KETONES,URINE 1+ (NEGATIVE); LEUKOCYTE ESTERASE ,URINE NEGATIVE (NEGATIVE); NITRITE,URINE NEGATIVE (NEGATIVE); PROTEIN,URINE 2+ (NEGATIVE)
[2022-12-29 05:15] LABS: ALKALINE PHOSPHATASE 98 U/L (40-136); CREATININE SERUM 1.04 MG/DL (0.60-1.30); GFR ESTIMATED 84
[2022-12-29 05:16] LABS: BUN/CREATININE RATIO 14
[2022-12-29 05:18] LABS: ALANINE AMINOTRANSFERASE 30 U/L (0-55); MAGNESIUM 1.8 MG/DL (1.6-2.4)
[2022-12-29 05:19] LABS: CREATINE KINASE 9 U/L (30-200); LIPASE 15 U/L (8-78)
[2022-12-29 05:24] LABS: ERYTHROCYTE SEDIMENTATION RATE 30 MM/HR (0-30); LYMPHOCYTES % (MANUAL) 8 %; MONOCYTES % (MANUAL) 8 %; NEUTROPHILS % (MANUAL) 84 %; RBC MORPH NORMAL
[2022-12-29 05:28] LABS: CREATINE KINASE MB 0.8 NG/ML (<6.6)
[2022-12-29 05:31] LABS: AMPHETAMINE SCREEN, URINE NEGATIVE (NEGATIVE); BARBITURATE SCREEN URINE NEGATIVE (NEGATIVE); BENZODIAZEPINES SCREEN URINE POSITIVE (NEGATIVE); CANNABINOID SCREEN, URINE POSITIVE (NEGATIVE); COCAINE SCREEN URINE NEGATIVE (NEGATIVE); METHADONE STAT NEGATIVE (NEGATIVE); OPIATE SCREEN URINE NEGATIVE (NEGATIVE); TRICYCLIC ANTIDEPRESSANTS SCRE NEGATIVE (NEGATIVE)
[2022-12-29 05:32] LABS: OXYCODONE STAT POSITIVE (NEGATIVE); PROPOXYPHENE STAT NEGATIVE (NEGATIVE)
--- NOTE | 2022-12-29 05:32 | ED Respiratory ---
General Chief Complaint: Respiratory Problems Stated Complaint: SOA Source: patient (DIFFICULT HISTORIAN), old records History of Present Illness Date Seen by Provider: December 29, 2022 Time Seen by Provider: 04:30 Initial Comments PT ARRIVES VIA EMS FROM HOME NO TREATMENT BY EMS PT CALLED EMS FOR SHORTNESS OF BREATH SINCE SOMETIME YESTERDAY. PT HAS COPD, BUT STATES HE HAS NOT USED HIS INHALER OR NEBULIZER LATELY HE HAS HOME O2, CLAIMS HE HAS BEEN WEARING IT. HE HAS CPAP/BIPAP THAT HE IS SUPPOSED TO BE WEARING, BUT STATES HE DOES NOT HE DENIES FEVER HE HAS ALSO HAD A PRODUCTIVE COUGH FOR THE LAST COUPLE OF DAYS HOWEVER ON ARRIVAL, PT DOES NOT MENTION HIS SHORTNESS OF BREATH AT ALL--HE REPEATEDLY IS WANTING PAIN MEDICATIONS FOR HIS CHRONIC PAIN EMS HAD REPORTED THAT HE HAD A LARGE AMOUNT OF UNACCOUNTED PAIN PILLS MISSING FROM BOTTLES --THEY DID NOT BRING MEDICATION BOTTLES WITH PT. THEY REPORTED THAT THE BOTTLES WERE ALMOST EMPTY--JUST HAD A FEW PILLS IN EACH BOTTLE. PER MED RECONCILIATION, PT FILLED THE FOLLOWING RX'S RECENTLY: -OXYCONTIN 80 MG TID #84 ON 12/26/22 -OXYCODONE 30 MG QID #112 ON 12/26/22 -GABAPENTIN 800 MG TID #90 ON 12/20/22 -PREDNISONE 20 MG DAILY #90 ON 12/19/22 PT IS ALSO DIABETIC. HE HAS BEEN PRESCRIBED GLIMEPIRIDE, BUT IS ALSO PRESCRIBED INSULIN ON ASKING ABOUT HIS INSULIN, HE STATES "I TAKE IT WHEN I CHECK MY BLOOD SUGAR WHEN IT'S HIGH" BUT CANNOT GIVE ANY RELIABLE DETAILS HE ALSO HAS HTN, CLAIMS THAT HE HAS NOT MISSED DOSES OF HIS BLOOD PRESSURE MEDICATION PT HAS A LONG HISTORY OF NON-COMPLIANCE AND FREQUENTLY DOES NOT TAKE MEDICATIONS PRESCRIBED HE CONTINUES TO SMOKE HE HAS A HISTORY OF ALCOHOL ABUSE, BUT CLAIMS NO RECENT USE HE ALSO HAS AND EXTENSIVE HISTORY OF POLYSUBSTANCE ABUSE, INCLUDING METHAMPH ETAMINES. BUT ALSO RX DRUGS--OPIATES AND BENZODIAZEPINES HE HAS REQUIRED INTUBATIONS IN THE PAST FOR OVERDOSES, WELL FOR R ESPIRATORY FAILURE DUE TO COPD. PT IS ESSENTIALLY WHEELCHAIR BOUND DUE TO MORBID OBESITY, BUT IS ABLE TO STAND FOR TRANSFERS. PT WAS ADMITTED 12/10-12/11/22 FOR ALTERED MENTAL STATUS, WHICH RESOLVED. PCP; DR. YARBROUGH, IN [place] Allergies and Home Medications Allergies Coded Allergies: hydrocodone (Verified Allergy, Unknown, TAKES OXYCODONE AT HOME, 05/05/16) STATES IS NOT ALLERGIC TO THIS MED latex (Verified Allergy, Unknown, 05/05/16) Patient Home Medication List Albuterol Sulfate (Ventolin Hfa) 8.5 Gm Hfa.aer.ad, 2 PUFF IH QID PRN for SHOR TNESS OF BREATH, (Reported) Entered as Reported by: WHITNEY DOWD on 02/26/16 0952 Alprazolam (Alprazolam) 1 Mg Tablet, 1 MG PO BID, (Reported) Entered as Reported by: LISS EDMOND on 09/18/20 1523 Duloxetine HCl (Duloxetine HCl) 60 Mg Capsule.dr, 60 MG PO DAILY, (Reported) Entered as Reported by: GISELLE MCKEON on 07/05/22 1532 Gabapentin (Gabapentin) 800 Mg Tablet, 800 MG PO TID, (Reported) Entered as Reported by: ENE MARTINI on 04/25/17 1427 Glimepiride (Glimepiride) 2 Mg Tablet, 2 MG PO BID, (Reported) Entered as Reported by: LISS EDMOND on 12/11/22 1051 Ibuprofen (Ibuprofen) 200 Mg Tablet, 400 MG PO Q8H PRN for PAIN-MILD (1-4), (Reported) Entered as Reported by: LISS EDMOND on 12/11/22 1051 Insulin Detemir (Levemir Flextouch) 100 Unit/Ml (3 Ml) Insuln.pen, 30 UNIT SQ BID, (Reported) Entered as Reported by: GISELLE MCKEON on 07/05/22 1532 Insulin Lispro (Insulin Lispro Kwikpen U-100) 100 Unit/1 Ml Insuln.pen, UNITS SQ AC, (Reported) Entered as Reported by: LISS EDMOND on 09/18/20 1523 Lisinopril (Lisinopril) 20 Mg Tablet, 20 MG PO BID PRN for BLOOD PRESSURE, (Reported) Entered as Reported by: LISS EDMOND on 07/08/22 1032 Oxycodone HCl (Oxycodone HCl) 30 Mg Tablet, 30 MG PO Q6H PRN for PAIN-SEVERE (8- 10), (Reported) Entered as Reported by: LISS EDMOND on 12/11/22 1051 Oxycodone HCl (Oxycodone HCl ER) 80 Mg Tab.er.12h, 80 MG PO TID, (Reported) Entered as Reported by: LISS EDMOND on 12/11/22 1051 Prednisone (Prednisone) 20 Mg Tab, 20 MG PO DAILY, (Reported) Entered as Reported by: ENE MARTINI on 05/02/17 1430 Prednisone (Prednisone) 10 Mg Tab.ds.pk, 40 MG PC DAILY Prescribed by: FREDDIE JIMENEZ on 12/11/22 1153 Promethazine HCl (Promethazine Tablet) 25 Mg Tablet, 25 MG PO HS, (Reported) Entered as Reported by: WHITNEY DOWD on 02/26/16 0952 Promethazine HCl (Promethazine Tablet) 25 Mg Tablet, 25 MG PO Q6H PRN for NAUSEA/VOMITING-2ND LINE, (Reported) Entered as Reported by: LISS EDMOND on 12/11/22 1051 Rosuvastatin Calcium (Rosuvastatin Calcium) 40 Mg Tablet, 40 MG PO DAILY, (Reported) Entered as Reported by: GISELLE MCKEON on 07/05/22 1532 Sitagliptin Phos/Metformin HCl (Janumet 50-1,000 mg Tablet) 50 Mg-1,000 Mg Tablet, 1 EA PO BID, (Reported) Entered as Reported by: LISS EDMOND on 12/11/22 1051 Past Noafyos-Owqbzn-Ebhtak Hx Immunizations Up To Date Tetanus Booster (TDap): Unknown PED Vaccines UTD: Yes First/Initial COVID19 Vaccinat: X1 Second COVID19 Vaccination Jaden: YES Third COVID19 Vaccination Date: YES Seasonal Allergies Seasonal Allergies: No Past Medical History Surgery/Hospitalization HX: RA, NEUROPATHY, VASCULITIS, SKIN GRAPH FROM LANCE ON RT LEG, MONONEUROTISMULTIPLEX, DIABETIC TYPE II, COPD, HX OF UTI'S AND SEPSIS Surgeries: Yes Abdominal, Cardiac, Orthopedic Respiratory: Yes (O2 DEPENDENT AT 2L/NC; MULTIPLE INTUBATIONS; CHRONIC RESP FAILURE) Pneumonia, COPD Currently Using CPAP: Yes Currently Using BIPAP: Yes Cardiac: Yes Chronic Edema/Swelling, Hypertension, Peripheral Vascular Neurological: Yes (MONO NEURITIS MULTIPLEX; NEUROPATHY--WHEELCHAIR BOUND) Headaches /Migraines, Neuropathy Reproductive Disorders: No Sexually Transmitted Disease: No HIV/AIDS: No Genitourinary: Yes (SHORT TERM DIALYSIS) Bladder Infection, Kidney Stones, Renal Failure, UTI-Chronic Gastrointestinal: Yes (HEPATITIS C--NO TREATMENT. BILARY STENT) Gastroesophageal Reflux, Liver Disease/Jaundice, Hepatitis, Gall Bladder Disease Musculoskeletal: Yes (WHEELCHAIR BOUND DUE TO MORBID OBESITY;CHROINC PAIN AND DEBILITY. ) Degenerate Disk Disease, Arthritis, Rheumatoid Arthritis, Chronic Back Pain Endocrine: Yes (MORBID OBESITY; ELEVATED URIC ACID) Diabetes, Insulin dep HEENT: No Loss of Vision: Denies Hearing Impairment: Denies Cancer: No Psychosocial: Yes (EXTENSIVE POLYSUBSTANCE ABUSE, WITH NON-SUICIDAL OVERDOSES) Sleep Difficulties, Anxiety, Depression Integumentary: Yes (3RD DEGREE LANCE TO R LEG WITH SKIN GRAFTS; CELLULITIS R LEG) Blood Disorders: No Family Medical History Alcoholism 03 FATHER Diabetes mellitus 03 FATHER Family history: Allergy 03 MOTHER Family history: Asthma 03 MOTHER Family history: Hypertension 03 FATHER 03 MOTHER No Pertinent Family Hx SOCIAL HISTORY: -SMOKES 1 1/2 PPD -ETOH--HX OF ABUSE, CLAIMS NO RECENT USE -DRUGS--LONGSTANDING EXTENSIVE HISTORY OF DRUG ABUSE, INCLUDING METHAMPHETAMINES, THC, RX DRUGS--ESPECIALLY OPIATES AND BENZODIAZEPINES. HAS HAD MULTIPLE OVERDOSES--NON-SUICIDAL--HAS REQUIRED INTUBATIONS MULTIPLE TIMES IN THE PAST DUE TO OVERDOSES. PAST SURGICAL HISTORY: -BILILARY STENT -BACK SURGERY--LUMBAR HERNIATED DISC -CARDIAC CATH 2009--NORMAL -NERVE BIOPSY RIGHT LEG -SKIN GRAFTS ADDITIONAL PAST MEDICAL HISTORY: -COPD, O2 DEPENDENT AT 2 L/NC, WITH MULTITUDE OF EPISODES OF ACUTE ON CHRONIC RESPIRATORY FAILURE REQUIRING INTUBATION MULTIPLE TIMES, WITH SOME BEING DUE TO DRUG OVERDOSES. - VASCULITIS - CHRONIC LEG EDEMA --RIGHT > LEFT, THIS SIDE HAS BEEN MORE AFFECTED BY LANCE; HAS WORN BRACES ON BOTH LEGS IN THE PAST - WHEELCHAIR BOUND DUE TO MORBID OBESITY, CHRONIC GENERALIZED PAIN, GENERALIZED DEBILITY AND NEUROPATHY--PT CAN STAND FOR TRANSFERS. - HAS BEEN ON DIALYSIS IN THE PAST, [facility] FOR ACUTE RENAL FAILURE - ELEVATED URIC ACID - CHRONIC GENERALIZED PAIN COMPLAINTS - 3RD DEGREE LANCE TO RIGHT LEG 06/2013, WITH SKIN GRAFTS--CAUSED BY PT FALLING ASLEEP WITH LIGHTED CIGARETTE. - CELLULITIS OF RIGHT LEG 09/2015--SEPTIC SHOCK WITH ACUTE RESPIRATORY FAILURE AND RENAL FAILURE--HAD PNEUMONIA AND UTI--ON VENTILATOR AND SHORT TERM DIALYSIS Physical Exam Vital Signs - First Documented 12/29/22 04:29 Temp 36.8 Pulse 101 Resp 30 B/P (MAP) 190/120 (143) Capillary Refill : Height: 6'0.00" Weight: 306lbs. 0.0oz. 138.671299rg; 42.30 BMI Method:Stated Focused Exam Lactate Level 12/29/22 04:42: Lactic Acid Level 1.09 Lactic Acid Level Laboratory Tests Test 12/29/22 04:42 Lactic Acid Level 1.09 MMOL/L (0.50-2.00) Procedures/Interventions Date of ETT Placement: Oct 15, 2018 Time of ETT Placement: 1350 Progress/Results/Core Measures Suspected Sepsis SIRS Temperature: Pulse: 91 Respiratory Rate: 26 Laboratory Tests 12/29/22 04:42: White Blood Count 13.8H Blood Pressure 181 /125 Mean: 12/29/22 04:42: Lactic Acid Level 1.09 Laboratory Tests 12/29/22 04:42: Creatinine 1.04, INR Comment 0.9, Platelet Count 177, Total Bilirubin 1.3H Results/Orders Lab Results Laboratory Tests Test 12/29/22 04:42 12/29/22 05:07 12/29/22 05:10 Range/Units White Blood Count 13.8 H 4.3-11.0 10^3/uL Red Blood Count 4.66 4.30-5.52 10^6/uL Hemoglobin 14.2 13.3-17.7 g/dL Hematocrit 42 40-54 % Mean Corpuscular Volume 89 80-99 fL Mean Corpuscular Hemoglobin 31 25-34 pg Mean Corpuscular Hemoglobin Concent 34 32-36 g/dL Red Cell Distribution Width 13.3 10.0-14.5 % Platelet Count 177 130-400 10^3/uL Mean Platelet Volume 10.4 9.0-12.2 fL Immature Granulocyte % (Auto) 1 % Neutrophils (%) (Auto) 81 H 42-75 % Lymphocytes (%) (Auto) 7 L 12-44 % Monocytes (%) (Auto) 10 0-12 % Eosinophils (%) (Auto) 1 0-10 % Basophils (%) (Auto) 0 0-10 % Neutrophils # (Auto) 11.2 H 1.8-7.8 10^3/uL Lymphocytes # (Auto) 1.0 1.0-4.0 10^3/uL Monocytes # (Auto) 1.3 H 0.0-1.0 10^3/uL Eosinophils # (Auto) 0.1 0.0-0.3 10^3/uL Basophils # (Auto) 0.0 0.0-0.1 10^3/uL Immature Granulocyte # (Auto) 0.1 0.0-0.1 10^3/uL Neutrophils % (Manual) 84 % Lymphocytes % (Manual) 8 % Monocytes % (Manual) 8 % Blood Morphology Comment NORMAL Erythrocyte Sedimentation Rate 30 0-30 MM/HR Prothrombin Time 12.8 12.2-14.7 SEC INR Comment 0.9 0.8-1.4 Activated Partial Thromboplast Time 32 24-35 SEC Blood Gas Puncture Site L BRACH Blood Gas Patient Temperature 36.8 Arterial Blood pH 7.51 H 7.37-7.43 Arterial Blood Partial Pressure CO2 29 L 35-45 MMHG Arterial Blood Partial Pressure O2 116 H 79-93 MMHG Arterial Blood HCO3 23 23-27 MMOL/L Arterial Blood Total CO2 24.2 21.0-31.0 MMOL/L Arterial Blood Oxygen Saturation 99 94-100 % Arterial Blood Base Excess 0.5 -2.5-2.5 MMOL/L Yonathan Test YES-POS Blood Gas Ventilator Setting NO Blood Gas Inspired Oxygen 5L Sodium Level 137 135-145 MMOL/L Potassium Level 4.3 3.6-5.0 MMOL/L Chloride Level 104 98-107 MMOL/L Carbon Dioxide Level 20 L 21-32 MMOL/L Anion Gap 13 5-14 MMOL/L Blood Urea Nitrogen 15 7-18 MG/DL Creatinine 1.04 0.60-1.30 MG/DL Estimat Glomerular Filtration Rate 84 BUN/Creatinine Ratio 14 Glucose Level 164 H 70-105 MG/DL Lactic Acid Level 1.09 0.50-2.00 MMOL/L Calcium Level 10.7 H 8.5-10.1 MG/DL Corrected Calcium 11.1 H 8.5-10.1 MG/DL Magnesium Level 1.8 1.6-2.4 MG/DL Total Bilirubin 1.3 H 0.1-1.0 MG/DL Aspartate Amino Transf (AST/SGOT) 28 5-34 U/L Alanine Aminotransferase (ALT/SGPT) 30 0-55 U/L Alkaline Phosphatase 98 40-136 U/L Total Creatine Kinase 9 L 30-200 U/L Creatine Kinase MB 0.8 <6.6 NG/ML Myoglobin 35.5 10.0-92.0 NG/ML Troponin I < 0.028 <0.028 NG/ML C-Reactive Protein High Sensitivity 11.28 H 0.00-0.50 MG/DL B-Type Natriuretic Peptide 121.8 H <100.0 PG/ML Total Protein 6.6 6.4-8.2 GM/DL Albumin 3.5 3.2-4.5 GM/DL Amylase Level 41 25-125 U/L Lipase 15 8-78 U/L Acetaminophen Level < 10 L 10-30 UG/ML Serum Alcohol < 10 <10 MG/DL Urine Color YELLOW Urine Clarity CLEAR Urine pH 7.0 5-9 Urine Specific [place] 1.015 L 1.016-1.022 Urine Protein 2+ H NEGATIVE Urine Glucose (UA) NEGATIVE NEGATIVE Urine Ketones 1+ H NEGATIVE Urine Nitrite NEGATIVE NEGATIVE Urine Bilirubin NEGATIVE NEGATIVE Urine Urobilinogen 2.0 < = 1.0 MG/DL Urine Leukocyte Esterase NEGATIVE NEGATIVE Urine RBC (Auto) NEGATIVE NEGATIVE Urine RBC NONE /HPF Urine WBC NONE /HPF Urine Crystals NONE /LPF Urine Bacteria NEGATIVE /HPF Urine Casts NONE /LPF Urine Mucus NEGATIVE /LPF Urine Culture Indicated CULTURE PENDING Urine Opiates Screen NEGATIVE NEGATIVE Urine Oxycodone Screen POSITIVE H NEGATIVE Urine Methadone Screen NEGATIVE NEGATIVE Urine Propoxyphene Screen NEGATIVE NEGATIVE Urine Barbiturates Screen NEGATIVE NEGATIVE Ur Tricyclic Antidepressants Screen NEGATIVE NEGATIVE Urine Phencyclidine Screen NEGATIVE NEGATIVE Urine Amphetamines Screen NEGATIVE NEGATIVE Urine Methamphetamines Screen NEGATIVE NEGATIVE Urine Benzodiazepines Screen POSITIVE H NEGATIVE Urine Cocaine Screen NEGATIVE NEGATIVE Urine Cannabinoids Screen POSITIVE H NEGATIVE Influenza Type A (RT-PCR) Not Detected Not Detecte Influenza Type B (RT-PCR) Not Detected Not Detecte SARS-CoV-2 RNA (RT-PCR) Not Detected Not Detecte My Orders Orders - OSCAR HOPKINS DO Ed Iv/Invasive Line Start (12/29/22 04:30) Catheter(Urinary) Insert & Ass 03,15 (12/29/22 04:30) O2 (12/29/22 04:30) Monitor-Rhythm Ecg Trace Only (12/29/22 04:30) Alcohol (12/29/22 04:30) Amylase (12/29/22 04:30) Arterial Blood Gas (12/29/22 04:30) Bnp Justine (12/29/22 04:30) Cbc With Automated Diff (12/29/22 04:30) Comprehensive Metabolic Panel (12/29/22 04:30) Creatine Kinase (12/29/22 04:30) Creatine Kinase Mb (12/29/22 04:30) Hs C Reactive Protein (12/29/22 04:30) Drug Screen Stat (Urine) (12/29/22 04:30) Lactic Acid Analyzer (12/29/22:) Lipase (12/29/22 04:30) Magnesium (12/29/22 04:30) Protime With Inr (12/29/22:30) Partial Thromboplastin Time (12/29/22 04:30) Ua Culture If Indicated (12/29/22:) Blood Culture (12/29/22 04:30) Erythrocyte Sedimentation Rate (12/29/22 04:30) Myoglobin Serum (12/29/22 04:30) Troponin I Justine (12/29/22 04:30) Chest 1 View, Ap/Pa Only (12/29/22 04:30) Covid 19 Inhouse Test (12/29/22 04:30) Sputum Culture (12/29/22 04:30) Urine Culture (12/29/22 04:30) Ed Iv/Invasive Line Start (12/29/22 04:30) Ed Iv/Invasive Line Start (12/29/22 04:30) Vital Signs Adult Sepsis Patie Q15M (12/29/22 04:30) O2 (12/29/22 04:30) Remove Rings In Anticipation O (12/29/22 04:30) Ns Iv 1000 Ml (Sodium Chloride 0.9%) (12/29/22 04:30) Cefepime Injection (Maxipime Injection) (12/29/22 04:30) Lidocaine 2% (Urojet) (Xylocaine Urojet) (12/29/22 04:30) Influenza A And B By Pcr (12/29/22 04:30) Isolation Central Supply Req (12/29/22 04:30) Methylprednisolone Sod Succ (Solu-Medrol (12/29/22 04:30) Albuterol/Ipra Inhalation Soln (Duoneb I (12/29/22 04:45) Dexamethasone Injection (Decadron Injec (12/29/22 04:45) Rt Request For Service (12/29/22 04:38) Svn Small Volume Nebulizer (12/29/22 04:38) Acetaminophen (12/29/22 04:42) Manual Differential (12/29/22 04:42) Hydralazine Injection (Apresoline Inject (12/29/22 05:45) Nitroglycerin Ointment (Nitrobid Ointme (12/29/22 05:45) Ketorolac Injection (Toradol Injection) (12/29/22 05:45) Lorazepam Injection (Ativan Injection) (12/29/22 05:45) Ekg Tracing (12/29/22 06:14) Medications Given in ED Current Medications Medications Dose Ordered Sig/Lashawn Route Start Time Stop Time Status Last Admin Dose Admin Albuterol/ Ipratropium 3 ml ONCE ONCE INH 12/29/22 04:45 12/29/22 04:46 DC 12/29/22 05:01 3 ML Cefepime HCl 1000 mg/Sodium Chloride 50 ml @ 100 mls/hr ONCE ONCE IV 12/29/22 04:30 12/29/22 04:59 DC 12/29/22 05:02 100 MLS/HR Dexamethasone Sodium Phosphate 20 mg ONCE ONCE IH 12/29/22 04:45 12/29/22 04:46 DC 12/29/22 05:01 20 MG Hydralazine HCl 10 mg ONCE ONCE IV 12/29/22 05:45 12/29/22 05:46 DC 12/29/22 05:42 10 MG Ketorolac Tromethamine 30 mg ONCE ONCE IVP 12/29/22 05:45 12/29/22 05:46 DC 12/29/22 05:50 30 MG Lidocaine HCl 10 ml ONCE ONCE TOP 12/29/22 04:30 12/29/22 04:34 DC 12/29/22 04:49 10 ML Lorazepam 2 mg ONCE ONCE IVP 12/29/22 05:45 12/29/22 05:46 DC 12/29/22 05:50 2 MG Methylprednisolone Sodium Succinate 125 mg ONCE ONCE IVP 12/29/22 04:30 12/29/22 04:34 DC 12/29/22 04:49 125 MG Nitroglycerin 1 inch ONCE ONCE TOP 12/29/22 05:45 12/29/22 05:46 DC 12/29/22 05:42 1 INCH Vital Signs/I&O 12/29/22 12/29/22 12/29/22 12/29/22 04:29 04:29 04:29 04:57 Temp 36.8 Pulse 101 91 Resp 30 26 B/P (MAP) 190/120 (143) Pulse Ox 95 95 98 O2 Delivery OxyMask Nasal Cannula OxyMask O2 Flow Rate 5.00 2.00 5.00 30.00 Capillary Refill : Progress Note : Progress Note PT ARRIVES WITH O2 NASAL CANNULA IN HIS MOUTH BY EMS. WITH PT TALKING NON-STOP PT SWITCHED TO OXIMASK AT 5 L PLACED ON BIPAP SHORTLY AFTER ARRIVAL GIVEN NEB TREATMENT AND SOLU-MEDROL ON ARRIVAL REPEATEDLY WANTING PAIN MEDICATIONS--COMPLETELY FIXATED ON THIS FOR ENTIRE ER STAY HE IS INCREASINGLY ANXIOUS AND SITTING UP AND ROCKING BACK AND FORTH--TORADOL AND ATIVAN ORDERED. BP CONSISTENTLY 200'S/120'S--HYDRALAZINE AND NITROPASTE ORDERED NO DETERIORATION IN PT'S CONDITION DURING ER STAY DISCUSSED CODE STATUS, AND PT WISHES TO BE A FULL CODE REVIEWED PRIOR RECORDS, INCLUDING ER VISITS, ADMITS/H&P'S/CONSULTS/DISCHARGE SUMMARIES, TESTS/PROCEDURES ECG Initial ECG Impression Date: December 29, 2022 Initial ECG Impression Time: 06:21 Initial ECG Rate: 104 Initial ECG Rhythm: S.Tach Initial ECG Intervals CT 135 QRS 92 QT/QTC 332/392 Initial ECG Impression: Nonspecific Changes Initial ECG Comparisson: Unchanged Comment INTERPRETED BY ME Diagnostic Imaging Comments CXR--DECREASED AERATION, CHRONIC LUNG CHANGES, NO ACUTE PROCESS, PENDING RADIOLOGIST REVIEW Departure Communication (Admissions) 0553--SPOKE WITH DR. JIMENEZ, HOSPITALIST, ACCEPTS PT FOR ADMIT. 0612--REPORT TO E-ICU PHYSICIAN Impression Primary Impression: ACUTE ON CHRONIC RESPIRATORY FAILURE WITH HYPOXIA Additional Impressions: INSULIN DEPENDENT DIABETES MELLITUS Uncontrolled hypertension CHRONIC PAIN OPIATE DEPENDENT Heavy cigarette smoker (20-39 per day) HISTORY OF POLYSUBSTANCE ABUSE Morbid obesity Non-compliance Disposition: ADMITTED INPATIENT Condition: Stable Admissions Decision to Admit Reason: Admit from ER (General) Decision to Admit/Date: December 29, 2022 Time/Decision to Admit Time: 05:55 Departure-Patient Inst. Referrals: BRAD BENITEZ DO (PCP/Family) Primary Care Physician OSCAR HOPKINS DO December 29, 2022 05:32
[2022-12-29 05:33] LABS: BACTERIA,URINE NEGATIVE /HPF
[2022-12-29 05:44] LABS: ACETAMINOPHEN < 10 UG/ML (10-30)
[2022-12-29] MEDS ORDERED: LORazepam INJ 2 MG/ML (ATIVAN) VIAL IVP ONE (05:45)
[2022-12-29] MEDS ORDERED: KETOROLAC 30 MG/ML VIAL IVP ONE (05:45)
[2022-12-29] MEDS ORDERED: hydrALAZINE (APESOLINE) 20 MG/ML VIAL IV ONE (05:45)
[2022-12-29] MEDS ORDERED: NITROGLYCERIN 2% OINT 1 GM UNIT DOSE PACKET TOP ONE (05:45)
--- NOTE | 2022-12-29 07:04 | Diagnostic Imaging Report ---
EXAMINATION: Chest 1 view HISTORY: Short of breath COMPARISON: 12/11/2022 FINDINGS: There is mild left base atelectasis. Otherwise, the lungs are clear without edema or pneumonia. No pleural effusion or pneumothorax. Heart size is normal. IMPRESSION: 1. Mild atelectasis, otherwise clear lungs. Dictated by: Dictated on workstation # [id number]
[2022-12-29 08:05] VITALS: BP 186/140
--- NOTE | 2022-12-29 08:18 | Tele-ICU Consult ---
Progress Note Video rounds completed 57 y/o male admitted with SOB and hx of COPD Came to ED wanting pain meds. He is complaining of pain all over and his pain is 10/[address] and somewhat to time. PMH: has hx of DM and takes insulin PE: agitated and rolling around in bed BP 200/100 Currently on BIPAP 18/6, 30% CXR: no PNA IMP: may be having narcotic withdrwal PLAN: will treat agitation with ativan and BP with IV labetelol Probably needs addiction control treatment I am treating the patient remotely and not able to directly exam this patient. Time spend tin review and plan 30 minutes Focused Exam Lactate Level 12/29/22 04:42: Lactic Acid Level 1.09 Height, Weight, BMI Height: 6'0.00" Weight: 306lbs. 0.0oz. 138.673718vf; 39.00 BMI Method:Stated Lactic Acid Level Laboratory Tests Test 12/29/22 04:42 Lactic Acid Level 1.09 MMOL/L (0.50-2.00) Labs Laboratory Tests 12/29/22 04:42 Results Results/Procedures Lab Laboratory Tests 12/29/22 04:42 Results Labs Labs Laboratory Tests 12/29/22 04:42: White Blood Count 13.8H, Red Blood Count 4.66, Hemoglobin 14.2, Hematocrit 42, Mean Corpuscular Volume 89, Mean Corpuscular Hemoglobin 31, Mean Corpuscular Hemoglobin Concent 34, Red Cell Distribution Width 13.3, Platelet Count 177, Mean Platelet Volume 10.4, Immature Granulocyte % (Auto) 1, Neutrophils (%) (Auto) 81H, Lymphocytes (%) (Auto) 7L, Monocytes (%) (Auto) 10, Eosinophils (%) (Auto) 1, Basophils (%) (Auto) 0, Neutrophils # (Auto) 11.2H, Lymphocytes # (Auto) 1.0, Monocytes # (Auto) 1.3H, Eosinophils # (Auto) 0.1, Basophils # (Auto) 0.0, Immature Granulocyte # (Auto) 0.1, Neutrophils % (Manual) 84, Lymphocytes % (Manual) 8, Monocytes % (Manual) 8, Blood Morphology Comment NORMAL, Erythrocyte Sedimentation Rate 30, Prothrombin Time 12.8, INR Comment 0.9, Activated Partial Thromboplast Time 32, Blood Gas Puncture Site L BRACH, Blood Gas Patient Temperature 36.8, Arterial Blood pH 7.51H, Arterial Blood Partial Pressure CO2 29L, Arterial Blood Partial Pressure O2 116H, Arterial Blood HCO3 23, Arterial Blood Total CO2 24.2, Arterial Blood Oxygen Saturation 99, Arterial Blood Base Excess 0.5, Yonathan Test YES-POS, Blood Gas Ventilator Setting NO, Blood Gas Inspired Oxygen 5L, Sodium Level 137, Potassium Level 4.3, Chloride Level 104, Carbon Dioxide Level 20L, Anion Gap 13, Blood Urea Nitrogen 15, Creatinine 1.04, Estimat Glomerular Filtration Rate 84, BUN/Creatinine Ratio 14, Glucose Level 164H, Lactic Acid Level 1.09, Calcium Level 10.7H, Corrected Calcium 11.1H, Magnesium Level 1.8, Total Bilirubin 1.3H, Aspartate Amino Transf (AST/SGOT) 28, Alanine Aminotransferase (ALT/SGPT) 30, Alkaline Phosphatase 98, Total Creatine Kinase 9L, Creatine Kinase MB 0.8, Myoglobin 35.5, Troponin I < 0.028, C-Reactive Protein High Sensitivity 11.28H, B-Type Natriuretic Peptide 121.8H, Total Protein 6.6, Albumin 3.5, Amylase Level 41, Lipase 15, Acetaminophen Level < 10L, Serum Alcohol < 10 12/29/22 05:07: Urine Color YELLOW, Urine Clarity CLEAR, Urine pH 7.0, Urine Specific [place] 1.015L, Urine Protein 2+H, Urine Glucose (UA) NEGATIVE, Urine Ketones 1+H, Urine Nitrite NEGATIVE, Urine Bilirubin NEGATIVE, Urine Urobilinogen 2.0, Urine Leukocyte Esterase NEGATIVE, Urine RBC (Auto) NEGATIVE, Urine RBC NONE, Urine WBC NONE, Urine Crystals NONE, Urine Bacteria NEGATIVE, Urine Casts NONE, Urine Mucus NEGATIVE, Urine Culture Indicated CULTURE PENDING, Urine Opiates Screen NEGATIVE, Urine Oxycodone Screen POSITIVEH, Urine Methadone Screen NEGATIVE, Urine Propoxyphene Screen NEGATIVE, Urine Barbiturates Screen NEGATIVE, Ur Tricyclic Antidepressants Screen NEGATIVE, Urine Phencyclidine Screen NEGATIVE, Urine Amphetamines Screen NEGATIVE, Urine Methamphetamines Screen NEGATIVE, Urine Benzodiazepines Screen POSITIVEH, Urine Cocaine Screen NEGATIVE, Urine Cannabinoids Screen POSITIVEH 12/29/22 05:10: Influenza Type A (RT-PCR) Not Detected, Influenza Type B (RT-PCR) Not Detected, SARS-CoV-2 RNA (RT-PCR) Not Detected 12/29/22 06:44: Beta-Hydroxybutyrate (Chem panel) 1.43H 12/29/22 06:55: ASHTYN CRUZ MD December 29, 2022 08:18
[2022-12-29] MEDS ORDERED: ACETAMINOPHEN 500 MG TAB (TYLENOL) PO PRN (08:30)
[2022-12-29] MEDS ORDERED: MIDAZOLAM 2 MG/2 ML (VERSED) VIAL IV PRN (08:30)
[2022-12-29] MEDS ORDERED: LABETALOL HCL 20 MG/4 ML VIAL IV PRN (08:30)
[2022-12-29 08:40] LABS: ALBUMIN 3.6 GM/DL (3.2-4.5); POTASSIUM 4.5 MMOL/L (3.6-5.0)
[2022-12-29 08:41] LABS: CALCIUM 10.3 MG/DL (8.5-10.1)
[2022-12-29 08:43] LABS: TOTAL PROTEIN 6.7 GM/DL (6.4-8.2)
[2022-12-29 08:44] LABS: BILIRUBIN,TOTAL 1.3 MG/DL (0.1-1.0)
[2022-12-29] MEDS ORDERED: LORazepam 1 MG (ATIVAN) TAB PO PRN (08:45)
[2022-12-29] MEDS ORDERED: inSUlin ASPART (NovoLOG) 1 UNIT/0.01 ML (CHARGE PER UNIT) SC SCH ×2 (08:45→11:00)
[2022-12-29 08:46] LABS: CREATININE SERUM 1.09 MG/DL (0.60-1.30)
[2022-12-29] MEDS: ENOXAPARIN 40 MG/0.4 ML (LOVENOX) SYR SC SCH (08:47)
[2022-12-29] MEDS: NS IV 1000 ML 1,000 ML IV SCH ×2 (08:47→15:30)
[2022-12-29 09:07] LABS: BASOPHILS % (AUTO) 0 % (0-10); EOSINOPHILS % (AUTO) 0 % (0-10); HEMATOCRIT 41 % (40-54); HEMOGLOBIN 13.8 g/dL (13.3-17.7); LYMPHOCYTES # (AUTO) 0.3 10^3/uL (1.0-4.0); LYMPHOCYTES % (AUTO) 2 % (12-44); MEAN CORPUSCULAR HEMOGLOBIN 30 pg (25-34); MEAN CORPUSCULAR HGB CONC 33 g/dL (32-36); MEAN CORPUSCULAR VOLUME 89 fL (80-99); MEAN PLATELET VOLUME 10.9 fL (9.0-12.2); MONOCYTES # (AUTO) 0.3 10^3/uL (0.0-1.0); MONOCYTES % (AUTO) 2 % (0-12); NEUTROPHILS # (AUTO) 12.2 10^3/uL (1.8-7.8); NEUTROPHILS % (AUTO) 95 % (42-75); PLATELET COUNT 170 10^3/uL (130-400); WHITE BLOOD COUNT 12.9 10^3/uL (4.3-11.0)
[2022-12-29] MEDS ORDERED: lisINopril 20 MG (PRINIVIL) TABLET PO ONE (09:15)
[2022-12-29] MEDS ORDERED: oxyCODONE ER 40 MG (oxyCONTIN CR) TAB PO ONE (09:15)
[2022-12-29] MEDS ORDERED: GABAPENTIN 400 MG (NEURONTIN) CAP PO ONE (09:15)
[2022-12-29] MEDS ORDERED: DULoxetine 20 MG (CYMBALTA) CAP PO ONE (09:15)
[2022-12-29] MEDS: CEFEPIME 1,000 MG/NS 50 ML IVPB IV SCH ×6 (10:03→22:51)
[2022-12-29] MEDS: RT-ALBUTEROL/IPRATROPIUM 3 ML (DUONEB) VIAL INH SCH ×4 (10:10→22:32)
[2022-12-29 10:14] VITALS: BP 182/98
[2022-12-29 11:16] LABS: ABG OXYGEN SATURATION 99 % (94-100); ABG PCO2 30 MMHG (35-45); ABG PH 7.43 (7.37-7.43); ABG PO2 103 MMHG (79-93); ABG TCO2 20.7 MMOL/L (21.0-31.0); ALLENS TEST YES-POS; INSPIRED O2 30%
[2022-12-29 11:17] LABS: PATIENT TEMP 36.2; VENTILATOR NO
[2022-12-29] MEDS: inSUlin ASPART (NovoLOG) 1 UNIT/0.01 ML (CHARGE PER UNIT) SC SCH ×3 (12:36→23:55)
[2022-12-29] MEDS: NITROGLYCERIN 2% OINT 1 GM UNIT DOSE PACKET TOP SCH ×3 (12:36→23:55)
--- NOTE | 2022-12-29 13:44 | History & Physical-Hospitalist ---
[facility] 12/29/22 1343: History of Present Illness HPI/Chief Complaint Chadwick Hagen is a 57y M with PMH of COPD, DM, RA and mononeuritis multiplex who presented to the ED this morning with SOB since 12/28. He uses 2L oxygen via [place] at home and is wheelchair bound d/t debility. Pt has had a headache, sore throat, right ear pain and productive cough for the past 2 days. He lives with his mother but she is currently in the hospital which is causing him increased anxiety. He was last in the hospital 12/10 for AMS which resolved. Today he appears uncomfortable in bed and his rcdjiyr-eo-kif who helps take care of him is at bedside. Pt reports he is feeling "withdrawals" from not having pain meds. Notes feeling sweaty, shaky, has increased pain all over body and is moving his legs constantly. Regarding breathing, he feels his SOB is improved t linda on Bipap. Still having a cough though not productive. Source: patient Exam Limitations: no limitations Date Seen 12/29/22 Time Seen by a Provider: 08:30 Attending Physician Gavin Liriano MD PCP Admitting Physician: Freddie Jimenez MD Attending Physician: Freddie Jimenez MD Referring Physician Date of Admission December 29, 2022 at 07:23 Home Medications & Allergies Home Medications Reviewed patient Home Medication Reconciliation performed by pharmacy medication reconciliations emergency response technician and/or nursing. Patients Allergies have been reviewed. Allergies Allergies Coded Allergies hydrocodone (Verified Allergy, Unknown, TAKES OXYCODONE AT HOME, 05/05/16) STATES IS NOT ALLERGIC TO THIS MED latex (Verified Allergy, Unknown, 05/05/16) Past Ofqltpj-Ssyjts-Jcdzsh Hx Patient Social History Tobacco Use?: Yes Tobacco type used: Cigarettes Smoking Status: Former Smoker Smokeless Tobacco Frequency: Never a User Use of E-Cig and/or Vaping dev: No Additional E-Cig or Vaping: ABOUT ONE CIG/DAY Substance use?: Yes Substance type: Marijuana Additional substance use comme: ABOUT ONCE A MONTH Substance frequency: Once in a while Alcohol Use?: No Immunizations Up To Date First/Initial COVID19 Vaccinat: X1 Second COVID19 Vaccination Jaden: YES Tetanus Booster (TDap): Unknown PED Vaccines UTD: Yes Date of Pneumonia Vaccine: Nov 12, 2012 Seasonal Allergies Seasonal Allergies: No Current Status Advance Directives: No Communicates: Verbally Primary Language: Malaysian Preferred Spoken Language: Malaysian Is interpretation needed?: No Past Medical History Surgeries: Abdominal, Cardiac, Orthopedic Pneumonia, COPD Currently Using CPAP: Yes Currently Using BIPAP: Yes Chronic Edema/Swelling, Hypertension, Peripheral Vascular Headaches /Migraines, Neuropathy Sexually Transmitted Disease: No HIV/AIDS: No Bladder Infection, Kidney Stones, Renal Failure, UTI-Chronic Gastroesophageal Reflux, Liver Disease/Jaundice, Hepatitis, Gall Bladder Disease Degenerate Disk Disease, Arthritis, Rheumatoid Arthritis, Chronic Back Pain Diabetes, Insulin dep Loss of Vision: Denies Hearing Impairment: Denies Sleep Difficulties, Anxiety, Depression Blood Disorders: No PMHx: Mononeuritis multiplex Rheumatoid arthritis Hepatitis C Diabetes mellitus HTN SurgHx: Liver biopsy Back surgery Family Medical History Alcoholism 03 FATHER Diabetes mellitus 03 FATHER Family history: Allergy 03 MOTHER Family history: Asthma 03 MOTHER Family history: Hypertension 03 FATHER 03 MOTHER No Pertinent Family Hx SOCIAL HISTORY: -ETOH--HX OF ABUSE, CLAIMS NO RECENT USE -DRUGS--LONGSTANDING EXTENSIVE HISTORY OF DRUG ABUSE, INCLUDING METHAMPHETAMINES, THC, RX DRUGS--ESPECIALLY OPIATES AND BENZODIAZEPINES. HAS HAD MULTIPLE OVERDOSES--NON-SUICIDAL--HAS REQUIRED INTUBATIONS MULTIPLE TIMES IN THE PAST DUE TO OVERDOSES. PAST SURGICAL HISTORY: -BILILARY STENT -BACK SURGERY--LUMBAR HERNIATED DISC -CARDIAC CATH 2009--NORMAL -NERVE BIOPSY RIGHT LEG -SKIN GRAFTS ADDITIONAL PAST MEDICAL HISTORY: -COPD, O2 DEPENDENT AT 2 L/NC, WITH MULTITUDE OF EPISODES OF ACUTE ON CHRONIC RESPIRATORY FAILURE REQUIRING INTUBATION MULTIPLE TIMES, WITH SOME BEING DUE TO DRUG OVERDOSES. - VASCULITIS - CHRONIC LEG EDEMA --RIGHT > LEFT, THIS SIDE HAS BEEN MORE AFFECTED BY LANCE; HAS WORN BRACES ON BOTH LEGS IN THE PAST - WHEELCHAIR BOUND DUE TO MORBID OBESITY, CHRONIC GENERALIZED PAIN, GENERALIZED DEBILITY AND NEUROPATHY--PT CAN STAND FOR TRANSFERS. - HAS BEEN ON DIALYSIS IN THE PAST, BRIEFLY FOR ACUTE RENAL FAILURE - ELEVATED URIC ACID - CHRONIC GENERALIZED PAIN COMPLAINTS - 3RD DEGREE LANCE TO RIGHT LEG 06/2013, WITH SKIN GRAFTS--CAUSED BY PT FALLING ASLEEP WITH LIGHTED CIGARETTE. - CELLULITIS OF RIGHT LEG 09/2015--SEPTIC SHOCK WITH ACUTE RESPIRATORY FAILURE AND RENAL FAILURE--HAD PNEUMONIA AND UTI--ON VENTILATOR AND SHORT TERM DIALYSIS Review of Systems Constitutional: diaphoresis; No fever EENTM: ear pain (right); No throat pain Respiratory: cough, dyspnea on exertion, short of breath Cardiovascular: No chest pain; edema Gastrointestinal: No abdominal pain, No vomiting Musculoskeletal: back pain, muscle pain Psychiatric/Neurological: Anxiety, Headache All Other Systems Reviewed Negative Unless Noted: Yes (Negative excepted noted.) Physical Exam Physical Exam Vital Signs Vital Signs - First Documented 12/29/22 04:29 Temp 36.8 Pulse 101 Resp 30 B/P (MAP) 190/120 (143) Capillary Refill : Less Than 3 Seconds Height, Weight, BMI Height: 6'0.00" Weight: 306lbs. 0.0oz. 138.274906sb; 39.25 BMI Method:Stated General Appearance: Anxious, Obese HEENT: PERRL/EOMI, Moist Mucous Membranes Neck: Full Range of Motion, Normal Inspection Respiratory: Chest Non Tender, Normal Breath Sounds, No Respiratory Distress Cardiovascular: No Murmur, Tachycardia Gastrointestinal: Normal Bowel Sounds, Non Tender, Soft Extremity: Non Tender, Swelling (1+ b/l) Neurologic/Psychiatric: Alert, Oriented x3 Skin: Normal Color, Diaphoresis Results Results/Procedures Labs Laboratory Tests 12/29/22 04:42 12/29/22 08:22 Patient resulted labs reviewed. Assessment/Plan Admission Diagnosis Acute on chronic respiratory failure with hypoxia Admission Status: Inpatient Order (span 2 midnights) Reason for Inpatient Admission: supplemental oxygen Assessment and Plan Acute on chronic respiratory failure with hypoxia Supplemental oxygen Refer for sleep study, pt request Uncontrolled HTN Controlled with meds-continue Chronic pain-opiate dependent Possible withdrawal Hx Polysubstance abuse Continue pain control and avoid withdrawal sxs DM-insulin dependent Sliding scale insulin FREDDIE JIMENEZ MD 12/29/22 2007: History of Present Illness Source: patient Exam Limitations: no limitations Time Seen by a Provider: 11:25 Past Qbwzrvz-Vvgumh-Wjizgz Hx Family Medical History Alcoholism 03 FATHER Diabetes mellitus 03 FATHER Family history: Allergy 03 MOTHER Family history: Asthma 03 MOTHER Family history: Hypertension 03 FATHER 03 MOTHER Results Results/Procedures Imaging: Reviewed Imaging Report Assessment/Plan Admission Diagnosis Admission Status: Inpatient Order (span 2 midnights) Reason for Inpatient Admission: BiPAP Steroids Assessment and Plan Admitted with acute on chronic respiratory failure due to COPD exacerbation. Issues exacerbated by chronic pain with high dose opiate use. Also with uncontrolled hypertension. No evidence of acute infection, consider stopping Cefepime tomorrow if no infectious source identified. Critical Care Critically Ill Patient Diagnosis/Problems Diagnosis/Problems (1) Acute on chronic respiratory failure with hypoxia Status: Acute (2) COPD exacerbation Status: Acute (3) Narcotic dependence Status: Chronic (4) Mononeuritis multiplex Status: Chronic (5) Morbidly obese Status: Chronic (6) Uncontrolled hypertension Status: Acute Supervisory-Addendum Brief Verification & Attestation Participated in pt care: history, MDM, physical Personally performed: exam, history, MDM, supervision of care Care discussed with: Medical Student Procedures: n/a Results interpretation: Verified all documentation A medical student performed and documented this service in my presence. I r eviewed and verified all information documented by the medical student and made modifications to such information, when appropriate. I personally performed the physical exam and medical decision making. RAVINDRA CRUM December 29, 2022 13:43 FREDDIE JIMENEZ MD December 29, 2022 20:07
[2022-12-29] MEDS: GABAPENTIN 400 MG (NEURONTIN) CAP PO SCH ×2 (14:10→21:00)
[2022-12-29] MEDS: oxyCODONE ER 40 MG (oxyCONTIN CR) TAB PO SCH ×2 (14:11→20:59)
[2022-12-29 15:00] VITALS: BP 174/94
[2022-12-29 19:19] VITALS: BP 166/89
[2022-12-29] MEDS: MICONAZOLE 2% POWDER (DESENEX AF) 90 GM TOP SCH (21:00)
[2022-12-29 22:32] VITALS: BP 140/78
[2022-12-30] MEDS: NS IV 1000 ML 1,000 ML IV SCH ×3 (00:45→11:10)
[2022-12-30 02:43] VITALS: BP 145/80
[2022-12-30] MEDS: RT-ALBUTEROL/IPRATROPIUM 3 ML (DUONEB) VIAL INH SCH ×2 (02:43→06:40)
[2022-12-30] MEDS: CEFEPIME 1,000 MG/NS 50 ML IVPB IV SCH ×4 (05:29→11:59)
[2022-12-30 05:49] LABS: BASOPHILS % (AUTO) 0 % (0-10); EOSINOPHILS % (AUTO) 0 % (0-10); HEMATOCRIT 35 % (40-54); HEMOGLOBIN 11.7 g/dL (13.3-17.7); LYMPHOCYTES # (AUTO) 0.8 10^3/uL (1.0-4.0); LYMPHOCYTES % (AUTO) 9 % (12-44); MEAN CORPUSCULAR HEMOGLOBIN 31 pg (25-34); MEAN CORPUSCULAR HGB CONC 33 g/dL (32-36); MEAN CORPUSCULAR VOLUME 93 fL (80-99); MEAN PLATELET VOLUME 10.4 fL (9.0-12.2); MONOCYTES # (AUTO) 0.7 10^3/uL (0.0-1.0); MONOCYTES % (AUTO) 9 % (0-12); NEUTROPHILS % (AUTO) 81 % (42-75); PLATELET COUNT 143 10^3/uL (130-400); WHITE BLOOD COUNT 8.6 10^3/uL (4.3-11.0)
[2022-12-30 06:05] LABS: CALCIUM 9.6 MG/DL (8.5-10.1); CREATININE SERUM 1.1 MG/DL (0.60-1.30); POTASSIUM 4.4 MMOL/L (3.6-5.0)
[2022-12-30] MEDS: inSUlin ASPART (NovoLOG) 1 UNIT/0.01 ML (CHARGE PER UNIT) SC SCH ×2 (06:07→12:00)
[2022-12-30] MEDS: NITROGLYCERIN 2% OINT 1 GM UNIT DOSE PACKET TOP SCH ×2 (06:17→12:00)
[2022-12-30 06:41] VITALS: BP 178/97
[2022-12-30] MEDS ORDERED: predniSONE 20 MG TAB PO SCH (07:00)
[2022-12-30] MEDS: ENOXAPARIN 40 MG/0.4 ML (LOVENOX) SYR SC SCH (07:50)
[2022-12-30] MEDS: oxyCODONE ER 40 MG (oxyCONTIN CR) TAB PO SCH ×2 (07:51→13:30)
[2022-12-30] MEDS: GABAPENTIN 400 MG (NEURONTIN) CAP PO SCH ×2 (07:51→13:30)
[2022-12-30] MEDS: MICONAZOLE 2% POWDER (DESENEX AF) 90 GM TOP SCH (07:52)
[2022-12-30] MEDS ORDERED: lisINopril 20 MG (PRINIVIL) TABLET PO SCH (09:00)
[2022-12-30] MEDS ORDERED: DULoxetine 30 MG (CYMBALTA) CAP PO SCH (09:00)
--- NOTE | 2022-12-30 11:20 | Discharge Summary ---
Diagnosis/Chief Complaint Date of Admission December 29, 2022 at 07:23 Date of Discharge Discharge Date: December 30, 2022 Admission Diagnosis Primary Care Gavin Liriano MD Discharge Diagnosis (1) Acute on chronic respiratory failure with hypoxia Status: Acute (2) COPD exacerbation Status: Acute (3) Narcotic dependence Status: Chronic (4) Mononeuritis multiplex Status: Chronic (5) Morbidly obese Status: Chronic (6) Uncontrolled hypertension Status: Acute Discharge Summary Discharge Physical Exam Allergies: Coded Allergies: hydrocodone (Verified Allergy, Unknown, TAKES OXYCODONE AT HOME, 05/05/16) STATES IS NOT ALLERGIC TO THIS MED latex (Verified Allergy, Unknown, 05/05/16) Vitals & I&Os Vital Signs Date Time Temp Pulse Resp B/P (MAP) Pulse Ox O2 Delivery O2 Flow Rate FiO2 12/30/22 10:07 Nasal Cannula 1.00 12/30/22 10:00 98 21 97 12/30/22 04:00 25 12/30/22 03:49 36.1 Hospital Course Labs (last 24 hrs) Laboratory Tests 12/29/22 12:00: Glucometer 259H 12/29/22 18:00: Glucometer 212H 12/29/22 23:50: Glucometer 223H 12/30/22 04:42: White Blood Count 8.6, Red Blood Count 3.80L, Hemoglobin 11.7L, Hematocrit 35L, Mean Corpuscular Volume 93, Mean Corpuscular Hemoglobin 31, Mean Corpuscular Hemoglobin Concent 33, Red Cell Distribution Width 13.2, Platelet Count 143, Mean Platelet Volume 10.4, Immature Granulocyte % (Auto) 1, Neutrophils (%) (Au to) 81H, Lymphocytes (%) (Auto) 9L, Monocytes (%) (Auto) 9, Eosinophils (%) (Auto) 0, Basophils (%) (Auto) 0, Neutrophils # (Auto) 7.0, Lymphocytes # (Auto) 0.8L, Monocytes # (Auto) 0.7, Eosinophils # (Auto) 0.0, Basophils # (Auto) 0.0, Immature Granulocyte # (Auto) 0.0, Sodium Level 138, Potassium Level 4.4, Chloride Level 109H, Carbon Dioxide Level 19L, Anion Gap 10, Blood Urea Nitrogen 19H, Creatinine 1.10, Estimat Glomerular Filtration Rate 78, BUN/Creatinine Ratio 17, Glucose Level 170H, Calcium Level 9.6 Microbiology 12/29/22 MRSA Screen - Final, Complete MRSA not isolated Patient resulted labs reviewed. Pending Labs Laboratory Tests 12/30/22 04:42: White Blood Count 8.6, Red Blood Count 3.80, Hemoglobin 11.7, Hematocrit 35, Mean Corpuscular Volume 93, Mean Corpuscular Hemoglobin 31, Mean Corpuscular Hemoglobin Concent 33, Red Cell Distribution Width 13.2, Platelet Count 143, Mean Platelet Volume 10.4, Immature Granulocyte % (Auto) 1, Neutrophils (%) (Auto) 81, Lymphocytes (%) (Auto) 9, Monocytes (%) (Auto) 9, Eosinophils (%) (Auto) 0, Basophils (%) (Auto) 0, Neutrophils # (Auto) 7.0, Lymphocytes # (Auto) 0.8, Monocytes # (Auto) 0.7, Eosinophils # (Auto) 0.0, Basophils # (Auto) 0.0, Immature Granulocyte # (Auto) 0.0, Sodium Level 138, Potassium Level 4.4, Chloride Level 109, Carbon Dioxide Level 19, Anion Gap 10, Blood Urea Nitrogen 19, Creatinine 1.10, Estimat Glomerular Filtration Rate 78, BUN/Creatinine Ratio 17, Glucose Level 170, Calcium Level 9.6 Imaging: Reviewed Imaging Report Discharge Home Medications: Active Scripts Active Reported Ibuprofen 200 Mg Tablet 400 Mg PO Q8H PRN Janumet 50-1,000 mg Tablet (Sitagliptin Phos/Metformin HCl) 50 Mg-1,000 Mg Tablet 1 Ea PO BID Oxycodone HCl ER (Oxycodone HCl) 80 Mg Tab.er.12h 80 Mg PO TID Oxycodone HCl 30 Mg Tablet 30 Mg PO Q6H PRN Promethazine Tablet (Promethazine HCl) 25 Mg Tablet 25 Mg PO Q6H PRN Glimepiride 2 Mg Tablet 2 Mg PO BID Lisinopril 20 Mg Tablet 20 Mg PO BID PRN Duloxetine HCl 60 Mg Capsule.dr 60 Mg PO DAILY Levemir Flextouch (Insulin Detemir) 100 Unit/Ml (3 Ml) Insuln.pen 30 Unit SQ BID LAST FILLED 06-07-2022 #12 PENS/60 DAY SUPPLY Insulin Lispro Kwikpen U-100 (Insulin Lispro) 100 Unit/1 Ml Insuln.pen Units SQ AC USES PER SLIDING SCALE Alprazolam 1 Mg Tablet 1 Mg PO BID PRN Prednisone 20 Mg Tab 20 Mg PO DAILY Gabapentin 800 Mg Tablet 800 Mg PO TID Promethazine Tablet (Promethazine HCl) 25 Mg Tablet 25 Mg PO HS Ventolin Hfa (Albuterol Sulfate) 8.5 Gm Hfa.aer.ad 2 Puff IH QID PRN Instructions to patient/family Please see electronic discharge instructions given to patient. SUSAN SOSA MD December 30, 2022 11:20
[2022-12-30] MEDS ORDERED: PRD20T PO ×2 (11:34)
[2022-12-30] MEDS ORDERED: CEFD300C3 PO (11:34)
--- NOTE | 2022-12-30 11:35 | Discharge Inst-Simple/Standard ---
Discharge Inst-Standard Discharge Medications New, Converted or Re-Newed RX: Transmitted to Pharmacy Patient Instructions/Follow Up Plan of Care/Instructions/FU: Please continue to take your medications as written. Please follow up with your primary care doctor to follow up this hospital stay. Activity as Tolerated: Yes Discharge Diet: ADA Diet Return to The Hospital For: Chest pain, shortness of breath, fever, weakness, if you feel you are getting worse. SUSAN SOSA MD December 30, 2022 11:35
[2022-12-30 14:00] VITALS: BP 167/81
== END 2022-12-30 14:00 | disposition home or self-care (01) | DRG 189 ==
LOC: EDUNIT# 04:27 → ER 04:28 → ICU 07:23
PROVIDERS: ADMIT Internal Medicine; ATTEND Family Medicine
PROC: 5A09357 Assistance with Respiratory Ventilation, Less than 24 Consecutive Hours, Continuous Positive Airway Pressure (ICD-10-PCS; principal; 2022-12-29)
PROC: 5A0935A Assistance with Respiratory Ventilation, Less than 24 Consecutive Hours, High Flow/Velocity Cannula (ICD-10-PCS; 2022-12-29)
DX: J96.21 Acute and chronic respiratory failure with hypoxia (principal); J44.1 Chronic obstructive pulmonary disease with (acute) exacerbation; E11.40 Type 2 diabetes mellitus with diabetic neuropathy, unspecified; I10 Essential (primary) hypertension; F17.210 Nicotine dependence, cigarettes, uncomplicated; G58.7 Mononeuritis multiplex; G89.29 Other chronic pain; E66.01 Morbid (severe) obesity due to excess calories; Z20.822 Contact with and (suspected) exposure to COVID-19; B19.20 Unspecified viral hepatitis C without hepatic coma; K21.9 Gastro-esophageal reflux disease without esophagitis; M06.9 Rheumatoid arthritis, unspecified; M19.90 Unspecified osteoarthritis, unspecified site; F41.9 Anxiety disorder, unspecified; F32.A Depression, unspecified; I77.6 Arteritis, unspecified; Z99.81 Dependence on supplemental oxygen; Z79.84 Long term (current) use of oral hypoglycemic drugs; Z79.4 Long term (current) use of insulin; Z68.39 Body mass index [BMI] 39.0-39.9, adult; Z91.199 Patient's noncompliance with other medical treatment and regimen due to unspecified reason; Z99.3 Dependence on wheelchair; Z88.5 Allergy status to narcotic agent; Z79.52 Long term (current) use of systemic steroids; Z79.899 Other long term (current) drug therapy; Z79.891 Long term (current) use of opiate analgesic
CPT/HCPCS: 36415; 51702; 71045; 80048; 80053; 80306; 80320; 80329; 81000; 82010; 82150; 82550; 82553; 82805; 82947; 83036; 83605; 83690; 83735; 83874; 83880; 84484; 85007; 85025; 85027; 85610; 85652; 85730; 86141; 87040; 87081; 87088; 87636; 93005; 93041; 94640; 94660

== ENCOUNTER 2023-02-21 12:14 | Emergency (ER) | payer MEDICARE, MEDICAID ==
[~2023-02-21] VITALS: Ht 177 cm; Wt 118.0 kg
--- NOTE | 2023-02-21 12:42 | ED Lower Extremity ---
General Chief Complaint: Lower Extremity Stated Complaint: KNOT ON RT LEG | NUMBNESS | SWEATING Nursing Triage Note: PT TO RM 6 PER W/C PT STATES HAS INCREASED PAIN IN R CALF, STATES HAS SWOLLEN AREA. RATES PAIN 8/10. PT HAS HX OF RA, MONONEURITIS MULTIFLEX. Source: patient Exam Limitations: no limitations History of Present Illness Date Seen by Provider: Feb 21, 2023 Time Seen by Provider: 12:30 Initial Comments Patient is a 57-year-old male with a history of "mononeuropathy" hypertension and diabetes who presents to the emergency room with a chief complaint of right lower extremity pain, specifically in his calf with swelling and a "knot". He has had chills and sweats over the last 2 or 3 days. He states he has not gotten out of bed in the last 2 or 3 days. He is on chronic narcotics. He states he feels like he is urinating less frequently than normal and his urine is more dark than normal. He has had occasional cough with a little bit of sputum. No ongoing shortness of breath. No documented fevers at home. No diarrhea. No abdominal pain. He has never had a blood clot before. He has had extensive lance to his lower extremities with skin grafting. His right calf is noted to be somewhat erythematous slightly tender to palpation. All in the area of skin grafting at the right calf. Chronically wheel chair bound, does not ambulate Onset: other (2-3 days) Severity: moderate Pain/Injury Location: right leg Method of Injury: unknown Modifying Factors: Worse With Movement Allergies and Home Medications Allergies Coded Allergies: hydrocodone (Verified Allergy, Unknown, TAKES OXYCODONE AT HOME, 05/05/16) STATES IS NOT ALLERGIC TO THIS MED latex (Verified Allergy, Unknown, 05/05/16) Patient Home Medication List Home Medication List Reviewed: Yes Albuterol Sulfate (Ventolin Hfa) 8.5 Gm Hfa.aer.ad, 2 PUFF IH QID PRN for SHORTNESS OF BREATH, (Reported) Entered as Reported by: WHITNEY DOWD on 02/26/16 0952 Alprazolam (Alprazolam) 1 Mg Tablet, 1 MG PO BID PRN for ANXIETY, (Reported) Entered as Reported by: LISS EDMOND on 09/18/20 1523 Alprazolam (Xanax) 1 Mg Tablet, 1 MG PO BID Prescribed by: JEFFERSON HUMPHREY on 02/21/23 1425 Cefdinir (Cefdinir) 300 Mg Capsule, 300 MG PO BID Prescribed by: SUSAN SOSA on 12/30/22 1134 Cephalexin (Cephalexin) 500 Mg Tablet, 500 MG PO TID Prescribed by: JEFFERSON HUMPHREY on 02/21/23 1425 Duloxetine HCl (Duloxetine HCl) 60 Mg Capsule.dr, 60 MG PO DAILY, (Reported) Entered as Reported by: GISELLE MCKEON on 07/05/22 1532 Gabapentin (Gabapentin) 800 Mg Tablet, 800 MG PO TID, (Reported) Entered as Reported by: ENE MARTINI on 04/25/17 1427 Glimepiride (Glimepiride) 2 Mg Tablet, 2 MG PO BID, (Reported) Entered as Reported by: LISS EDMOND on 12/11/22 1051 Ibuprofen (Ibuprofen) 200 Mg Tablet, 400 MG PO Q8H PRN for PAIN-MILD (1-4), (Reported) Entered as Reported by: LISS EDMOND on 12/11/22 1051 Insulin Detemir (Levemir Flextouch) 100 Unit/Ml (3 Ml) Insuln.pen, 30 UNIT SQ BID, (Reported) Entered as Reported by: GISELLE MCKEON on 07/05/22 1532 Insulin Lispro (Insulin Lispro Kwikpen U-100) 100 Unit/1 Ml Insuln.pen, UNITS SQ AC, (Reported) Entered as Reported by: LISS EDMOND on 09/18/20 1523 Lisinopril (Lisinopril) 20 Mg Tablet, 20 MG PO BID PRN for BLOOD PRESSURE, (Reported) Entered as Reported by: LISS EDMOND on 07/08/22 1032 Oxycodone HCl (Oxycodone HCl) 30 Mg Tablet, 30 MG PO Q6H PRN for PAIN-SEVERE (8- 10), (Reported) Entered as Reported by: LISS EDMOND on 12/11/22 1051 Oxycodone HCl (Oxycodone HCl ER) 80 Mg Tab.er.12h, 80 MG PO TID, (Reported) Entered as Reported by: LISS EDMOND on 12/11/22 1051 Prednisone (Prednisone) 20 Mg Tab, 20 MG PO DAILY Prescribed by: SUSAN SOSA on 12/30/22 1134 Prednisone (Prednisone) 20 Mg Tab, 40 MG PO DAILY@0700 Prescribed by: SUSAN SOSA on 12/30/22 1134 Promethazine HCl (Promethazine Tablet) 25 Mg Tablet, 25 MG PO HS, (Reported) Entered as Reported by: WHITNEY DOWD on 02/26/16 0952 Promethazine HCl (Promethazine Tablet) 25 Mg Tablet, 25 MG PO Q6H PRN for NAUSEA/VOMITING-2ND LINE, (Reported) Entered as Reported by: LISS EDMOND on 12/11/22 1051 Sitagliptin Phos/Metformin HCl (Janumet 50-1,000 mg Tablet) 50 Mg-1,000 Mg Tablet, 1 EA PO BID, (Reported) Entered as Reported by: LISS EDMOND on 12/11/22 1051 Review of Systems Constitutional: see HPI EENTM: no symptoms reported Respiratory: cough Cardiovascular: no symptoms reported Gastrointestinal: no symptoms reported Genitourinary: decreased output, other (dark urine) Musculoskeletal: other (right calf pain and a "knot") Skin: no symptoms reported Psychiatric/Neurological: No Symptoms Reported All Other Systems Reviewed Negative Unless Noted: Yes Past Fmmjnpv-Zlydfg-Xhvjjn Hx Patient Social History Tobacco Use?: Yes Tobacco type used: Cigarettes Smoking Status: Current Everyday Smoker Substance use?: Yes Substance type: Marijuana Substance frequency: Once in a while Alcohol Use?: No Pt feels they are or have been: No Immunizations Up To Date Tetanus Booster (TDap): Unknown PED Vaccines UTD: Yes First/Initial COVID19 Vaccinat: X1 Second COVID19 Vaccination Jaden: X1 Third COVID19 Vaccination Date: X1 Seasonal Allergies Seasonal Allergies: No Past Medical History Surgery/Hospitalization HX: RA, NEUROPATHY, VASCULITIS, SKIN GRAPH FROM LANCE ON RT LEG, MONONEUROTISMULTIPLEX, DIABETIC TYPE II, COPD, HX OF UTI'S AND SEPSIS Surgeries: Yes Abdominal, Cardiac, Orthopedic Respiratory: Yes (O2 DEPENDENT AT 2L/NC; MULTIPLE INTUBATIONS; CHRONIC RESP FAILURE) Pneumonia, COPD Currently Using CPAP: Yes Currently Using BIPAP: Yes Cardiac: Yes Chronic Edema/Swelling, Hypertension, Peripheral Vascular Neurological: Yes (MONO NEURITIS MULTIPLEX; NEUROPATHY--WHEELCHAIR BOUND) Headaches /Migraines, Neuropathy Reproductive Disorders: No Sexually Transmitted Disease: No HIV/AIDS: No Genitourinary: Yes (SHORT TERM DIALYSIS) Bladder Infection, Kidney Stones, Renal Failure, UTI-Chronic Gastrointestinal: Yes (HEPATITIS C--NO TREATMENT. BILARY STENT) Gastroesophageal Reflux, Liver Disease/Jaundice, Hepatitis, Gall Bladder Disease Musculoskeletal: Yes (WHEELCHAIR BOUND DUE TO MORBID OBESITY;CHROINC PAIN AND DEBILITY. ) Degenerate Disk Disease, Arthritis, Rheumatoid Arthritis, Chronic Back Pain Endocrine: Yes (MORBID OBESITY; ELEVATED URIC ACID) Diabetes, Insulin dep HEENT: No Loss of Vision: Denies Hearing Impairment: Denies Cancer: No Psychosocial: Yes (EXTENSIVE POLYSUBSTANCE ABUSE, WITH NON-SUICIDAL OVERDOSES) Sleep Difficulties, Anxiety, Depression Integumentary: Yes (3RD DEGREE LANCE TO R LEG WITH SKIN GRAFTS; CELLULITIS R LEG) Blood Disorders: No Family Medical History Alcoholism 03 FATHER Diabetes mellitus 03 FATHER Family history: Allergy 03 MOTHER Family history: Asthma 03 MOTHER Family history: Hypertension 03 FATHER 03 MOTHER No Pertinent Family Hx SOCIAL HISTORY: -ETOH--HX OF ABUSE, CLAIMS NO RECENT USE -DRUGS--LONGSTANDING EXTENSIVE HISTORY OF DRUG ABUSE, INCLUDING METHAMPHETAMINES, THC, RX DRUGS--ESPECIALLY OPIATES AND BENZODIAZEPINES. HAS HAD MULTIPLE OVERDOSES--NON-SUICIDAL--HAS REQUIRED INTUBATIONS MULTIPLE TIMES IN THE PAST DUE TO OVERDOSES. PAST SURGICAL HISTORY: -BILILARY STENT -BACK SURGERY--LUMBAR HERNIATED DISC -CARDIAC CATH 2009--NORMAL -NERVE BIOPSY RIGHT LEG -SKIN GRAFTS ADDITIONAL PAST MEDICAL HISTORY: -COPD, O2 DEPENDENT AT 2 L/NC, WITH MULTITUDE OF EPISODES OF ACUTE ON CHRONIC RESPIRATORY FAILURE REQUIRING INTUBATION MULTIPLE TIMES, WITH SOME BEING DUE TO DRUG OVERDOSES. - VASCULITIS - CHRONIC LEG EDEMA --RIGHT > LEFT, THIS SIDE HAS BEEN MORE AFFECTED BY LANCE; HAS WORN BRACES ON BOTH LEGS IN THE PAST - WHEELCHAIR BOUND DUE TO MORBID OBESITY, CHRONIC GENERALIZED PAIN, GENERALIZED DEBILITY AND NEUROPATHY--PT CAN STAND FOR TRANSFERS. - HAS BEEN ON DIALYSIS IN THE PAST, BRIEFLY FOR ACUTE RENAL FAILURE - ELEVATED URIC ACID - CHRONIC GENERALIZED PAIN COMPLAINTS - 3RD DEGREE LANCE TO RIGHT LEG 06/2013, WITH SKIN GRAFTS--CAUSED BY PT FALLING ASLEEP WITH LIGHTED CIGARETTE. - CELLULITIS OF RIGHT LEG 09/2015--SEPTIC SHOCK WITH ACUTE RESPIRATORY FAILURE AND RENAL FAILURE--HAD PNEUMONIA AND UTI--ON VENTILATOR AND SHORT TERM DIALYSIS Physical Exam Vital Signs Vital Signs - First Documented 02/21/23 02/21/23 12:20 14:33 Temp 36.3 Pulse 94 Resp 19 B/P (MAP) 189/128 (148) Pulse Ox 94 O2 Delivery Room Air Capillary Refill : Less Than 3 Seconds Height, Weight, BMI Height: 6'0.00" Weight: 306lbs. 0.0oz. [id number]; 37.00 BMI Method:Stated General Appearance: WD/WN, no apparent distress, obese HEENT: PERRL/EOMI Neck: full range of motion Cardiovascular: regular rate, rhythm Respiratory: lungs clear, normal breath sounds, no respiratory distress, no accessory muscle use Gastrointestinal: non tender, soft Legs: left leg non-tender, left leg normal inspection; right leg soft tissue tenderness (prox right calf - no discrete mass/abscess; he does have diffuse light erythema to posterior calf. tender to palpation), right leg swelling Knees: bilateral knee non-tender, bilateral knee normal inspection Ankles: left ankle non-tender, left ankle normal inspection; right ankle swel ling Neurologic/Psychiatric: alert, normal mood/affect, oriented x 3 Skin: other (clammy and a little pale) Procedures/Interventions Date of ETT Placement: Oct 15, 2018 Time of ETT Placement: 1350 Progress/Results/Core Measures Results/Orders Lab Results Laboratory Tests Test 02/21/23 12:30 02/21/23 13:20 Range/Units White Blood Count 11.6 H 4.3-11.0 10^3/uL Red Blood Count 4.73 4.30-5.52 10^6/uL Hemoglobin 14.4 13.3-17.7 g/dL Hematocrit 42 40-54 % Mean Corpuscular Volume 89 80-99 fL Mean Corpuscular Hemoglobin 30 25-34 pg Mean Corpuscular Hemoglobin Concent 34 32-36 g/dL Red Cell Distribution Width 13.5 10.0-14.5 % Platelet Count 194 130-400 10^3/uL Mean Platelet Volume 10.4 9.0-12.2 fL Immature Granulocyte % (Auto) 1 % Neutrophils (%) (Auto) 69 42-75 % Lymphocytes (%) (Auto) 20 12-44 % Monocytes (%) (Auto) 8 0-12 % Eosinophils (%) (Auto) 2 0-10 % Basophils (%) (Auto) 0 0-10 % Neutrophils # (Auto) 8.1 H 1.8-7.8 10^3/uL Lymphocytes # (Auto) 2.3 1.0-4.0 10^3/uL Monocytes # (Auto) 0.9 0.0-1.0 10^3/uL Eosinophils # (Auto) 0.2 0.0-0.3 10^3/uL Basophils # (Auto) 0.0 0.0-0.1 10^3/uL Immature Granulocyte # (Auto) 0.1 0.0-0.1 10^3/uL Prothrombin Time 12.7 12.2-14.7 SEC INR Comment 0.9 0.8-1.4 Activated Partial Thromboplast Time 27 24-35 SEC Sodium Level 139 135-145 MMOL/L Potassium Level 3.6 3.6-5.0 MMOL/L Chloride Level 103 98-107 MMOL/L Carbon Dioxide Level 25 21-32 MMOL/L Anion Gap 11 5-14 MMOL/L Blood Urea Nitrogen 14 7-18 MG/DL Creatinine 1.04 0.60-1.30 MG/DL Estimat Glomerular Filtration Rate 84 BUN/Creatinine Ratio 13 Glucose Level 132 H 70-105 MG/DL Lactic Acid Level 2.14 *H 0.50-2.00 MMOL/L Calcium Level 10.2 H 8.5-10.1 MG/DL Corrected Calcium 10.4 H 8.5-10.1 MG/DL Total Bilirubin 1.0 0.1-1.0 MG/DL Aspartate Amino Transf (AST/SGOT) 18 5-34 U/L Alanine Aminotransferase (ALT/SGPT) 22 0-55 U/L Alkaline Phosphatase 96 40-136 U/L Total Protein 6.9 6.4-8.2 GM/DL Albumin 3.8 3.2-4.5 GM/DL Urine Color YELLOW Urine Clarity CLEAR Urine pH 6.0 5-9 Urine Specific [place] 1.020 1.016-1.022 Urine Protein 2+ H NEGATIVE Urine Glucose (UA) NEGATIVE NEGATIVE Urine Ketones NEGATIVE NEGATIVE Urine Nitrite NEGATIVE NEGATIVE Urine Bilirubin NEGATIVE NEGATIVE Urine Urobilinogen 4.0 < = 1.0 MG/DL Urine Leukocyte Esterase TRACE H NEGATIVE Urine RBC (Auto) TRACE-I H NEGATIVE Urine RBC RARE /HPF Urine WBC NONE /HPF Urine Squamous Epithelial Cells RARE /HPF Urine Crystals NONE /LPF Urine Bacteria NEGATIVE /HPF Urine Casts NONE /LPF Urine Mucus NEGATIVE /LPF Urine Culture Indicated CULTURE PENDING Micro Results Microbiology 02/21/23 Urine Culture - Final, Complete Gram Pos Mixed Bacterial [place] 02/21/23 Blood Culture - Preliminary, Resulted No growth 02/21/23 Blood Culture - Preliminary, Resulted No growth My Orders Orders - JEFFERSON HUMPHREY MD Cbc With Automated Diff (02/21/23 12:36) Comprehensive Metabolic Panel (02/21/23 12:36) Blood Culture (02/21/23 12:36) Sputum Culture (02/21/23 12:36) Urinalysis (02/21/23 12:36) Urine Culture (02/21/23 12:36) Protime With Inr (02/21/23 12:36) Partial Thromboplastin Time (02/21/23 12:36) Chest 1 View, Ap/Pa Only (02/21/23 12:36) Ed Iv/Invasive Line Start (02/21/23 12:36) Ed Iv/Invasive Line Start (02/21/23 12:36) Vital Signs Adult Sepsis Patie Q15M (02/21/23 12:36) O2 (02/21/23 12:36) Remove Rings In Anticipation O (02/21/23 12:36) Lactic Acid Analyzer (02/21/23 12:36) Us Venous Lower Ext Rt (02/21/23 12:36) Ns Iv 1000 Ml (Sodium Chloride 0.9%) (02/21/23 13:29) Alprazolam Tablet (Xanax Tablet) (02/21/23 14:15) Vital Signs/I&O 02/21/23 02/21/23 12:20 14:33 Temp 36.3 36.0 Pulse 94 72 Resp 19 16 B/P (MAP) 189/128 (148) 209/119 Pulse Ox 94 95 O2 Delivery Room Air Blood Pressure Mean: 148 Progress Progress Note #1: Time: 13:15 Progress Note No obvious DVT on Ultrasound. Labs looking good - mildly elevated WBC. Will await urine. CXR is clear. VSS. Afebrile. Progress Note #2: Time: 14:25 Progress Note Patient seen and evaluated by me. Evaluation today includes physical exam with CBC, Chem-12, lactic acid, coag panel, urinalysis, chest x-ray and ultrasound of the right lower extremity to rule out DVT. Pertinent physical exam findings well-developed well-nourished obese male in no acute distress, pleasant affable. Vital signs are stable. Heart is regular, lungs diminished throughout. No increased work of breathing or distress. Abdomen is benign. Right lower extremity demonstrates significant edema with tenderness in the mid right calf and very slight erythema overlying previous skin graft site to the medial calf. Distal pulses are intact. Brisk cap refill. Differential diagnosis based on history and physical exam, DVT, cellulitis. Labs independently reviewed and interpreted by me. CBC shows a slightly elevated white count at 11.6. Normal hemoglobin and hematocrit. Chem-12 notable for slightly increased glucose at 132, slightly increased calcium at 1 0.2. His lactic acid is elevated at 2.14. Coags are within normal limits. Urinalysis reveals 2+ protein with trace leukocyte esterase and trace red blood cells, chest x-ray shows chronic findings without any acute abnormality. Ultrasound of the right lower extremity is negative for DVT. In light of the patient's chronic immobility, mildly increased white count and erythema/physical exam findings in the right lower extremity we have opted to place the patient on a short course of antibiotics to cover cellulitis. The patient is comfortable with this plan of care. He does not have any concerning findings at this time for sepsis. He was treated in the emergency department with a liter of IV fluids. Encouraged to keep up with his fluids and given return precautions. He verbalized understanding, all questions are sought and answered. Patient is stable for discharge Diagnostic Imaging Diagonstic Imaging: Xray Plain Films/CT/US/NM/MRI: chest Comments [facility] [place], [place] NAME: [facility] REC#: [id number] PT STATUS: REG ER : 1965 PHYSICIAN: JEFFERSON HUMPHREY MD ADMIT DATE: 02/21/23/ER Draft Date of Exam:02/21/23 CHEST 1 VIEW, AP/PA ONLY INDICATION: Chills, malaise and swelling. EXAMINATION: Chest 02/21/2023 COMPARISON: 12/29/2022 Single view chest FINDINGS: Heart is prominent, pulmonary vasculature normal. Atelectasis or scarring seen at the bases. No infiltrates or effusions. No pneumothorax. IMPRESSION: 1. Chronic findings with no acute cardiopulmonary process. Dictated on workstation # [id number] Dict: 02/21/23 1255 Trans: 02/21/23 1257 [facility] [id number] Interpreted by: SLAVA SHELL MD Electronically signed by: Farhana [facility], [place] NAME: [facility] REC#: [id number] PT STATUS: REG ER : 1965 PHYSICIAN: JEFFERSON HUMPHREY MD ADMIT DATE: 02/21/23/ER Draft Date of Exam:02/21/23 US VENOUS LOWER EXT RT PROCEDURE: US right lower extremity venous. TECHNIQUE: Multiple real-time grayscale images were obtained over the right lower extremity in various projections. Additional spectral analysis and color Doppler duplex images were also obtained. INDICATION: Swelling and pain in the right lower extremity. FINDINGS: There is no evidence of right lower extremity DVT. Right lower extremity deep venous system shows normal compressibility with normal response to augmentation and Valsalva. No fluid collection or mass is detected. IMPRESSION: No evidence of right lower extremity DVT. 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 Decision time for Depature: 14:17 Referrals: GINNY YARBROUGH MD (PCP/Family) Primary Care Physician Patient Instructions: Cellulitis (Skin Infection), Adult ED Add. Discharge Instructions: Please take the Antibiotics as prescribed for 7 days - Keflex 500mg 3 times a day. I have given you 6 pills of 1mg xanax as well. Please take responsibly. If you develop worsening swelling, redness, fever - please come back to the Emergency Department for re-evaluation. Follow up with your primary care physician as scheduled. Scripts Alprazolam (Xanax) 1 Mg Tablet 1 MG PO BID, #6 TAB Prov: JEFFERSON HUMPHREY MD 02/21/23 Cephalexin (Cephalexin) 500 Mg Tablet 500 MG PO TID for 7 Days, #21 TAB Prov: JEFFERSON HUMPHREY MD 02/21/23 Copy Copies To 1: GINNY YARBROUGH MD, KATHRYN M MD Feb 21, 2023 12:42
[2023-02-21 12:45] LABS: BASOPHILS % (AUTO) 0 % (0-10); EOSINOPHILS # (AUTO) 0.2 10^3/uL (0.0-0.3); EOSINOPHILS % (AUTO) 2 % (0-10); HEMATOCRIT 42 % (40-54); HEMOGLOBIN 14.4 g/dL (13.3-17.7); LYMPHOCYTES # (AUTO) 2.3 10^3/uL (1.0-4.0); LYMPHOCYTES % (AUTO) 20 % (12-44); MEAN CORPUSCULAR HEMOGLOBIN 30 pg (25-34); MEAN CORPUSCULAR HGB CONC 34 g/dL (32-36); MEAN CORPUSCULAR VOLUME 89 fL (80-99); MEAN PLATELET VOLUME 10.4 fL (9.0-12.2); MONOCYTES # (AUTO) 0.9 10^3/uL (0.0-1.0); MONOCYTES % (AUTO) 8 % (0-12); NEUTROPHILS # (AUTO) 8.1 10^3/uL (1.8-7.8); NEUTROPHILS % (AUTO) 69 % (42-75); PLATELET COUNT 194 10^3/uL (130-400); WHITE BLOOD COUNT 11.6 10^3/uL (4.3-11.0)
[2023-02-21 12:50] LABS: ALBUMIN 3.8 GM/DL (3.2-4.5); POTASSIUM 3.6 MMOL/L (3.6-5.0)
[2023-02-21 12:51] LABS: CALCIUM 10.2 MG/DL (8.5-10.1)
[2023-02-21 12:52] LABS: TOTAL PROTEIN 6.9 GM/DL (6.4-8.2)
[2023-02-21 12:56] LABS: CREATININE SERUM 1.04 MG/DL (0.60-1.30)
--- NOTE | 2023-02-21 12:58 | Diagnostic Imaging Report ---
INDICATION: Chills, malaise and swelling. EXAMINATION: Chest 02/21/2023 COMPARISON: 12/29/2022 Single view chest FINDINGS: Heart is prominent, pulmonary vasculature normal. Atelectasis or scarring seen at the bases. No infiltrates or effusions. No pneumothorax. IMPRESSION: 1. Chronic findings with no acute cardiopulmonary process. Dictated by: Dictated on workstation # [id number]
[2023-02-21 13:03] LABS: INR 0.9 (0.8-1.4); PROTHROMBIN TIME PATIENT 12.7 SEC (12.2-14.7)
[2023-02-21 13:28] LABS: BILIRUBIN,URINE NEGATIVE (NEGATIVE); CLARITY,URINE CLEAR; COLOR,URINE YELLOW; GLUCOSE, URINE (UA) NEGATIVE (NEGATIVE); KETONES,URINE NEGATIVE (NEGATIVE); LEUKOCYTE ESTERASE ,URINE TRACE (NEGATIVE); NITRITE,URINE NEGATIVE (NEGATIVE); PROTEIN,URINE 2+ (NEGATIVE)
[2023-02-21] MEDS ORDERED: NS IV 1000 ML 1,000 ML IV STA (13:29)
--- NOTE | 2023-02-21 13:33 | Diagnostic Imaging Report ---
PROCEDURE: US right lower extremity venous. TECHNIQUE: Multiple real-time grayscale images were obtained over the right lower extremity in various projections. Additional spectral analysis and color Doppler duplex images were also obtained. INDICATION: Swelling and pain in the right lower extremity. FINDINGS: There is no evidence of right lower extremity DVT. Right lower extremity deep venous system shows normal compressibility with normal response to augmentation and Valsalva. No fluid collection or mass is detected. IMPRESSION: No evidence of right lower extremity DVT. Dictated by: Dictated on workstation # [id number]
[2023-02-21 13:37] LABS: BACTERIA,URINE NEGATIVE /HPF; RBC,URINE RARE /HPF; SQUAMOUS EPITHELIAL CELL,UR RARE /HPF
[2023-02-21] MEDS ORDERED: ALPRAZolam 1 MG (XANAX) TAB PO ONE (14:15)
[2023-02-21] MEDS ORDERED: ALPR1TAB2 PO (14:25)
[2023-02-21] MEDS ORDERED: CEPH500T PO (14:25)
[2023-02-21 14:33] VITALS: BP 209/119
== END 2023-02-21 14:33 | disposition home or self-care (01) ==
LOC: EDUNIT# 12:14 → ER 12:17
DX: L03.115 Cellulitis of right lower limb (principal); F13.239 Sedative, hypnotic or anxiolytic dependence with withdrawal, unspecified; J44.9 Chronic obstructive pulmonary disease, unspecified; E66.01 Morbid (severe) obesity due to excess calories; F17.210 Nicotine dependence, cigarettes, uncomplicated; Z68.37 Body mass index [BMI] 37.0-37.9, adult; Z91.040 Latex allergy status; Z79.891 Long term (current) use of opiate analgesic; Z99.81 Dependence on supplemental oxygen; Z99.89 Dependence on other enabling machines and devices
CPT/HCPCS: 36415; 71045; 80053; 81000; 83605; 85025; 85610; 85730; 87040; 87088

== ENCOUNTER 2023-05-09 15:06 | Emergency (ER) | payer MEDICARE, MEDICAID ==
[~2023-05-09] VITALS: Ht 180 cm; Wt 120.0 kg
[~2023-05-09 15:06] MED LIST changes: +ALPR1TAB2 PO; +CEPH500T PO; -GABA-490 PO; +GABA-491 PO; -INSU100I48 SQ; +INSU100I64 SQ
[2023-05-09] MEDS ORDERED: NS IV 1000 ML 1,000 ML IV STA (15:32)
[2023-05-09 15:38] LABS: BASOPHILS # (AUTO) 0.1 10^3/uL (0.0-0.1); BASOPHILS % (AUTO) 1 % (0-10); EOSINOPHILS # (AUTO) 0.2 10^3/uL (0.0-0.3); EOSINOPHILS % (AUTO) 2 % (0-10); HEMATOCRIT 43 % (40-54); HEMOGLOBIN 14.6 g/dL (13.3-17.7); LYMPHOCYTES # (AUTO) 2.4 10^3/uL (1.0-4.0); LYMPHOCYTES % (AUTO) 20 % (12-44); MEAN CORPUSCULAR HEMOGLOBIN 31 pg (25-34); MEAN CORPUSCULAR HGB CONC 34 g/dL (32-36); MEAN CORPUSCULAR VOLUME 92 fL (80-99); MEAN PLATELET VOLUME 11.2 fL (9.0-12.2); MONOCYTES # (AUTO) 0.9 10^3/uL (0.0-1.0); MONOCYTES % (AUTO) 8 % (0-12); NEUTROPHILS # (AUTO) 8.6 10^3/uL (1.8-7.8); NEUTROPHILS % (AUTO) 70 % (42-75); PLATELET COUNT 172 10^3/uL (130-400); WHITE BLOOD COUNT 12.3 10^3/uL (4.3-11.0)
[2023-05-09 15:50] LABS: ALBUMIN 3.4 GM/DL (3.2-4.5); POTASSIUM 4.8 MMOL/L (3.6-5.0)
[2023-05-09 15:51] LABS: CALCIUM 10.3 MG/DL (8.5-10.1)
[2023-05-09 15:53] LABS: TOTAL PROTEIN 6.8 GM/DL (6.4-8.2)
[2023-05-09 15:55] LABS: BILIRUBIN,TOTAL 0.6 MG/DL (0.1-1.0)
[2023-05-09 15:56] LABS: CREATININE SERUM 0.97 MG/DL (0.60-1.30)
--- NOTE | 2023-05-09 16:03 | ED General ---
General Chief Complaint: Abdominal/GI Problems Stated Complaint: DEHYDRATED, LEG PAIN/NUMBNESS, CHORNIC ILLNESS Nursing Triage Note: PT WITH SON, STATES HX OF UTI'S, RA, DIABETIC, NEUROLOGIC ISSUE, COPD, RESP ISSUES, CC TODAY OF WEAKNESS AND FEELS DEHYDRATED History of Present Illness Date Seen by Provider: May 09, 2023 Time Seen by Provider: 15:25 Initial Comments 57-year-old male who is bedbound with a history of UTIs, that being diabetic, neurologic issues some COPD presents of just not feeling well today and feels like maybe little dehydrated. Patient reports that he feels like his "skin just cannot breathe" he is not sure how else to describe it. Maybe a little bit mild congestion denies, fever, chills etc. Allergies and Home Medications Allergies Coded Allergies: hydrocodone (Verified Allergy, Unknown, TAKES OXYCODONE AT HOME, 05/05/16) STATES IS NOT ALLERGIC TO THIS MED latex (Verified Allergy, Unknown, 05/05/16) Patient Home Medication List Home Medication List Reviewed: Yes Albuterol Sulfate (Ventolin Hfa) 8.5 Gm Hfa.aer.ad, 2 PUFF IH QID PRN for SHORTNESS OF BREATH, (Reported) Entered as Reported by: WHITNEY DOWD on 02/26/16 0952 Alprazolam (Alprazolam) 1 Mg Tablet, 1 MG PO BID PRN for ANXIETY, (Reported) Entered as Reported by: LISS EDMOND on 09/18/20 1523 Alprazolam (Xanax) 1 Mg Tablet, 1 MG PO BID Prescribed by: JEFFERSON HUMPHREY on 02/21/23 1425 Cefdinir (Cefdinir) 300 Mg Capsule, 300 MG PO BID Prescribed by: SUSAN SOSA on 12/30/22 1134 Cephalexin (Cephalexin) 500 Mg Tablet, 500 MG PO TID Prescribed by: JEFFERSON HUMPHREY on 02/21/23 1425 Duloxetine HCl (Duloxetine HCl) 60 Mg Capsule.dr, 60 MG PO DAILY, (Reported) Entered as Reported by: GISELLE MCKEON on 07/05/22 1532 Gabapentin (Gabapentin) 800 Mg Tablet, 800 MG PO TID, (Reported) Entered as Reported by: ENE MARTINI on 04/25/17 1427 Glimepiride (Glimepiride) 2 Mg Tablet, 2 MG PO BID, (Reported) Entered as Reported by: LISS EDMOND on 12/11/22 1051 Ibuprofen (Ibuprofen) 200 Mg Tablet, 400 MG PO Q8H PRN for PAIN-MILD (1-4), (Reported) Entered as Reported by: LISS EDMOND on 12/11/22 1051 Insulin Detemir (Levemir Flextouch) 100 Unit/Ml (3 Ml) Insuln.pen, 30 UNIT SQ BID, (Reported) Entered as Reported by: GISELLE MCKEON on 07/05/22 1532 Insulin Lispro (Insulin Lispro Kwikpen U-100) 100 Unit/1 Ml Insuln.pen, UNITS SQ AC, (Reported) Entered as Reported by: LISS EDMOND on 09/18/20 1523 Lisinopril (Lisinopril) 20 Mg Tablet, 20 MG PO BID PRN for BLOOD PRESSURE, (Reported) Entered as Reported by: LISS EDMOND on 07/08/22 1032 Oxycodone HCl (Oxycodone HCl) 30 Mg Tablet, 30 MG PO Q6H PRN for PAIN-SEVERE (8- 10), (Reported) Entered as Reported by: LISS EDMOND on 12/11/22 1051 Oxycodone HCl (Oxycodone HCl ER) 80 Mg Tab.er.12h, 80 MG PO TID, (Reported) Entered as Reported by: LISS EDMOND on 12/11/22 1051 Prednisone (Prednisone) 20 Mg Tab, 20 MG PO DAILY Prescribed by: SUSAN SOSA on 12/30/22 1134 Prednisone (Prednisone) 20 Mg Tab, 40 MG PO DAILY@0700 Prescribed by: SUSAN SOSA on 12/30/22 1134 Promethazine HCl (Promethazine Tablet) 25 Mg Tablet, 25 MG PO HS, (Reported) Entered as Reported by: WHITNEY DOWD on 02/26/16 0952 Promethazine HCl (Promethazine Tablet) 25 Mg Tablet, 25 MG PO Q6H PRN for NAUSEA/VOMITING-2ND LINE, (Reported) Entered as Reported by: LISS EDMOND on 12/11/22 1051 Sitagliptin Phos/Metformin HCl (Janumet 50-1,000 mg Tablet) 50 Mg-1,000 Mg Tablet, 1 EA PO BID, (Reported) Entered as Reported by: LISS EDMOND on 12/11/22 1051 Review of Systems Review of Systems Constitutional: see HPI; No chills, No fever; malaise Respiratory: see HPI Cardiovascular: no symptoms reported Gastrointestinal: no symptoms reported Genitourinary: see HPI, other (dark) Musculoskeletal: no symptoms reported Past Irxhndx-Buvyom-Gpjthv Hx Patient Social History Tobacco Use?: Yes Smoking Status: Current Everyday Smoker Substance use?: Yes Substance type: Marijuana Alcohol Use?: No Immunizations Up To Date Tetanus Booster (TDap): Unknown PED Vaccines UTD: Yes First/Initial COVID19 Vaccinat: X1 Second COVID19 Vaccination Jaden: X1 Third COVID19 Vaccination Date: X1 Seasonal Allergies Seasonal Allergies: No Past Medical History Surgery/Hospitalization HX: RA, NEUROPATHY, VASCULITIS, SKIN GRAPH FROM LANCE ON RT LEG, MONONEUROTISMULTIPLEX, DIABETIC TYPE II, COPD, HX OF UTI'S AND SEPSIS Surgeries: Yes Abdominal, Cardiac, Orthopedic Respiratory: Yes (O2 DEPENDENT AT 2L/NC; MULTIPLE INTUBATIONS; CHRONIC RESP FAILURE) Pneumonia, COPD Currently Using CPAP: Yes Currently Using BIPAP: Yes Cardiac: Yes Chronic Edema/Swelling, Hypertension, Peripheral Vascular Neurological: Yes (MONO NEURITIS MULTIPLEX; NEUROPATHY--WHEELCHAIR BOUND) Headaches /Migraines, Neuropathy Reproductive Disorders: No Sexually Transmitted Disease: No HIV/AIDS: No Genitourinary: Yes (SHORT TERM DIALYSIS) Bladder Infection, Kidney Stones, Renal Failure, UTI-Chronic Gastrointestinal: Yes (HEPATITIS C--NO TREATMENT. BILARY STENT) Gastroesophageal Reflux, Liver Disease/Jaundice, Hepatitis, Gall Bladder Disease Musculoskeletal: Yes (WHEELCHAIR BOUND DUE TO MORBID OBESITY;CHROINC PAIN AND DEBILITY. ) Degenerate Disk Disease, Arthritis, Rheumatoid Arthritis, Chronic Back Pain Endocrine: Yes (MORBID OBESITY; ELEVATED URIC ACID) Diabetes, Insulin dep HEENT: No Loss of Vision: Denies Hearing Impairment: Denies Cancer: No Psychosocial: Yes (EXTENSIVE POLYSUBSTANCE ABUSE, WITH NON-SUICIDAL OVERDOSES) Sleep Difficulties, Anxiety, Depression Integumentary: Yes (3RD DEGREE LANCE TO R LEG WITH SKIN GRAFTS; CELLULITIS R LEG) Blood Disorders: No Family Medical History Alcoholism 03 FATHER Diabetes mellitus 03 FATHER Family history: Allergy 03 MOTHER Family history: Asthma 03 MOTHER Family history: Hypertension 03 FATHER 03 MOTHER No Pertinent Family Hx SOCIAL HISTORY: -ETOH--HX OF ABUSE, CLAIMS NO RECENT USE -DRUGS--LONGSTANDING EXTENSIVE HISTORY OF DRUG ABUSE, INCLUDING METHAMPHETAMINES, THC, RX DRUGS--ESPECIALLY OPIATES AND BENZODIAZEPINES. HAS HAD MULTIPLE OVERDOSES--NON-SUICIDAL--HAS REQUIRED INTUBATIONS MULTIPLE TIMES IN THE PAST DUE TO OVERDOSES. PAST SURGICAL HISTORY: -BILILARY STENT -BACK SURGERY--LUMBAR HERNIATED DISC -CARDIAC CATH 2009--NORMAL -NERVE BIOPSY RIGHT LEG -SKIN GRAFTS ADDITIONAL PAST MEDICAL HISTORY: -COPD, O2 DEPENDENT AT 2 L/NC, WITH MULTITUDE OF EPISODES OF ACUTE ON CHRONIC RESPIRATORY FAILURE REQUIRING INTUBATION MULTIPLE TIMES, WITH SOME BEING DUE TO DRUG OVERDOSES. - VASCULITIS - CHRONIC LEG EDEMA --RIGHT > LEFT, THIS SIDE HAS BEEN MORE AFFECTED BY LANCE; HAS WORN BRACES ON BOTH LEGS IN THE PAST - WHEELCHAIR BOUND DUE TO MORBID OBESITY, CHRONIC GENERALIZED PAIN, GENERALIZED DEBILITY AND NEUROPATHY--PT CAN STAND FOR TRANSFERS. - HAS BEEN ON DIALYSIS IN THE PAST, BRIEFLY FOR ACUTE RENAL FAILURE - ELEVATED URIC ACID - CHRONIC GENERALIZED PAIN COMPLAINTS - 3RD DEGREE LANCE TO RIGHT LEG 06/2013, WITH SKIN GRAFTS--CAUSED BY PT FALLING ASLEEP WITH LIGHTED CIGARETTE. - CELLULITIS OF RIGHT LEG 09/2015--SEPTIC SHOCK WITH ACUTE RESPIRATORY FAILURE AND RENAL FAILURE--HAD PNEUMONIA AND UTI--ON VENTILATOR AND SHORT TERM DIALYSIS Physical Exam Vital Signs Vital Signs - First Documented 05/09/23 15:19 Temp 37.1 Pulse 56 Resp 20 O2 Delivery Room Air Capillary Refill : Height, Weight, BMI Height: 6'0.00" Weight: 306lbs. 0.0oz. [id number]; 37.00 BMI Method:Stated General Appearance: No Apparent Distress Respiratory: Lungs Clear, Normal Breath Sounds Cardiovascular: Regular Rate, Rhythm, No Edema Gastrointestinal: Non Tender, Soft Neurologic/Psychiatric: Alert, Oriented x3 Procedures/Interventions Date of ETT Placement: Oct 15, 2018 Time of ETT Placement: 1350 Progress/Results/Core Measures Suspected Sepsis SIRS Temperature: Pulse: 56 Respiratory Rate: 20 Laboratory Tests 05/09/23 15:25: White Blood Count 12.3H Blood Pressure / Mean: Laboratory Tests 05/09/23 15:25: Creatinine 0.97, Platelet Count 172, Total Bilirubin 0.6 Results/Orders Lab Results Laboratory Tests Test 05/09/23 15:25 05/09/23 15:35 Range/Units White Blood Count 12.3 H 4.3-11.0 10^3/uL Red Blood Count 4.66 4.30-5.52 10^6/uL Hemoglobin 14.6 13.3-17.7 g/dL Hematocrit 43 40-54 % Mean Corpuscular Volume 92 80-99 fL Mean Corpuscular Hemoglobin 31 25-34 pg Mean Corpuscular Hemoglobin Concent 34 32-36 g/dL Red Cell Distribution Width 12.8 10.0-14.5 % Platelet Count 172 130-400 10^3/uL Mean Platelet Volume 11.2 9.0-12.2 fL Immature Granulocyte % (Auto) 0 % Neutrophils (%) (Auto) 70 42-75 % Lymphocytes (%) (Auto) 20 12-44 % Monocytes (%) (Auto) 8 0-12 % Eosinophils (%) (Auto) 2 0-10 % Basophils (%) (Auto) 1 0-10 % Neutrophils # (Auto) 8.6 H 1.8-7.8 10^3/uL Lymphocytes # (Auto) 2.4 1.0-4.0 10^3/uL Monocytes # (Auto) 0.9 0.0-1.0 10^3/uL Eosinophils # (Auto) 0.2 0.0-0.3 10^3/uL Basophils # (Auto) 0.1 0.0-0.1 10^3/uL Immature Granulocyte # (Auto) 0.0 0.0-0.1 10^3/uL Sodium Level 140 135-145 MMOL/L Potassium Level 4.8 3.6-5.0 MMOL/L Chloride Level 106 98-107 MMOL/L Carbon Dioxide Level 21 21-32 MMOL/L Anion Gap 13 5-14 MMOL/L Blood Urea Nitrogen 16 7-18 MG/DL Creatinine 0.97 0.60-1.30 MG/DL Estimat Glomerular Filtration Rate 91 BUN/Creatinine Ratio 16 Glucose Level 126 H 70-105 MG/DL Calcium Level 10.3 H 8.5-10.1 MG/DL Corrected Calcium 10.8 H 8.5-10.1 MG/DL Magnesium Level 2.0 1.6-2.4 MG/DL Total Bilirubin 0.6 0.1-1.0 MG/DL Aspartate Amino Transf (AST/SGOT) 27 5-34 U/L Alanine Aminotransferase (ALT/SGPT) 41 0-55 U/L Alkaline Phosphatase 71 40-136 U/L Total Protein 6.8 6.4-8.2 GM/DL Albumin 3.4 3.2-4.5 GM/DL Urine Color YELLOW Urine Clarity CLEAR Urine pH 6.5 5-9 Urine Specific [place] 1.025 H 1.016-1.022 Urine Protein 3+ H NEGATIVE Urine Glucose (UA) NEGATIVE NEGATIVE Urine Ketones NEGATIVE NEGATIVE Urine Nitrite NEGATIVE NEGATIVE Urine Bilirubin NEGATIVE NEGATIVE Urine Urobilinogen 0.2 < = 1.0 MG/DL Urine Leukocyte Esterase NEGATIVE NEGATIVE Urine RBC (Auto) NEGATIVE NEGATIVE Urine RBC RARE /HPF Urine WBC 0-2 /HPF Urine Squamous Epithelial Cells 0-2 /HPF Urine Crystals NONE /LPF Urine Bacteria TRACE /HPF Urine Casts NONE /LPF Urine White Blood Cell Casts /LPF Urine Mucus NEGATIVE /LPF Urine Culture Indicated NO My Orders Orders - LEGER,ROBBIE L DO Chest 1 View, Ap/Pa Only (05/09/23 15:32) Cbc And Automated Diff (05/09/23 15:32) Comprehensive Metabolic Panel (05/09/23 15:32) Magnesium (05/09/23 15:32) Ua Culture If Indicated (05/09/23 15:32) Ns Iv 1000 Ml (Ns Iv 1000 Ml) (05/09/23 15:32) Enalaprilat Injection (Enalaprilat Injec (05/09/23 16:45) Vital Signs/I&O 05/09/23 15:19 Temp 37.1 Pulse 56 Resp 20 B/P (MAP) O2 Delivery Room Air Capillary Refill : Progress Note : Progress Note Patient's diagnostic studies were ordered reviewed and interpreted by me. Patient has a very minimal nonspecific white count with no signs or source of infection. Patient is negative for acute changes on the CMP with a negative urinalysis. Patient x-ray shows some mild pulmonary congestion. Patient has known history of hypertension has not taken all of his blood pressure medications today. I will give him a little bit of enalapril and then they could really start his blood pressure medications at home as they normally manage it. Patient should follow-up with his primary care provider next week for further outpatient evaluation also further evaluation of his pulmonary congestion CHF work-up. Patient remained in the mid 90s to upper 90s on room air. Patient is normally on 2 L at home. I discussed with him to have that further event reevaluated as he may not need oxygen at home except for when doing activities or at night. Patient reports in the past has been on CPAP but when COVID came he took it because "somebody else needed" and has never received it back. Recommend he follows up with his primary care provider to have that reevaluated again. Patient was stable and discharged home patient's history was obtained from both him and his son who is his caregiver. Diagnostic Imaging Diagonstic Imaging: Xray Plain Films/CT/US/NM/MRI: chest Comments Date of Exam:05/09/23 CHEST 1 VIEW, AP/PA ONLY Indication: Shortness of breath. Examination: Chest 05/09/2023 COMPARISON: 02/21/2023 FINDINGS: Single view of the chest. There is cardiomegaly with pulmonary vascular congestion. Linear atelectasis seen at the bases. No pneumothorax, effusions or infiltrates. Impression: 1. Cardiomegaly with pulmonary vascular congestion. Departure Impression Primary Impression: Essential (primary) hypertension Additional Impression: Pulmonary vascular congestion Disposition: HOME, SELF-CARE Condition: Stable Departure-Patient Inst. Referrals: GINNY YARBROUGH MD (PCP/Family) Primary Care Physician Patient Instructions: High Blood Pressure ED Add. Discharge Instructions: Please follow-up with your primary care provider next week for recheck of your symptoms. Please discuss having your CPAP back along with with your oxygen needs to determine if you need oxygen all the time. Return to the ER with any concerns or worsening of your symptoms. All discharge instructions reviewed with patient and/or family. Voiced understanding. ROBBIE LEGER DO May 09, 2023 16:03
[2023-05-09 16:12] LABS: BACTERIA,URINE TRACE /HPF; BILIRUBIN,URINE NEGATIVE (NEGATIVE); CLARITY,URINE CLEAR; COLOR,URINE YELLOW; GLUCOSE, URINE (UA) NEGATIVE (NEGATIVE); KETONES,URINE NEGATIVE (NEGATIVE); LEUKOCYTE ESTERASE ,URINE NEGATIVE (NEGATIVE); NITRITE,URINE NEGATIVE (NEGATIVE); PH,URINE 6.5 (5-9); PROTEIN,URINE 3+ (NEGATIVE); RBC,URINE RARE /HPF; SQUAMOUS EPITHELIAL CELL,UR 0-2 /HPF; WBC,URINE 0-2 /HPF
[2023-05-09] MEDS ORDERED: ENALAPRILAT INJ 2.5 MG/2 ML VIAL IV ONE (16:45)
[2023-05-09 17:10] VITALS: BP 166/114
== END 2023-05-09 17:10 | disposition home or self-care (01) ==
LOC: EDUNIT# 15:06 → ER 15:09
DX: I10 Essential (primary) hypertension (principal); R09.89 Other specified symptoms and signs involving the circulatory and respiratory systems; J44.9 Chronic obstructive pulmonary disease, unspecified; E11.9 Type 2 diabetes mellitus without complications; E66.01 Morbid (severe) obesity due to excess calories; F17.200 Nicotine dependence, unspecified, uncomplicated; Z68.37 Body mass index [BMI] 37.0-37.9, adult; Z91.040 Latex allergy status; Z99.81 Dependence on supplemental oxygen; Z79.4 Long term (current) use of insulin
CPT/HCPCS: 36415; 71045; 80053; 81000; 83735; 85025

== ENCOUNTER 2023-05-27 10:53 | Emergency (ER) | payer MEDICARE, MEDICAID ==
[~2023-05-27] VITALS: Ht 177.8 cm; Wt 118.0 kg
[2023-05-27] MEDS ORDERED: fentaNYL INJECTION 100 MCG/2 ML VIAL IVP STA (11:12)
--- NOTE | 2023-05-27 11:18 | ED General ---
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 STATES HE TAKES OXYCONTIN Q8 HRS AND OXYCODONE 30MG FOR BREAKTHROUGH PAIN. STATES HIS PAIN STARTED AFTER HE URINATED ON HIMSELF A COUPLE DAYS AGO. (TC JAIME) History of Present Illness Date Seen by Provider: May 27, 2023 Time Seen by Provider: 11:15 Initial Comments Patient is a 57-year-old male with a history of mononeuritis multiplex, COPD, hypertension, vasculitis, frequent UTIs who presents ED with burning in his upper and lower extremities. Patient states symptoms started 3 days ago. Woke up and urinated on himself and has experiencing severe burning pain throughout his extremities. History of similar symptoms in the past. Patient takes OxyContin every 8 hours and oxycodone for breakthrough pain. Patient states last dose was yesterday. Denies of any urinary symptoms since he urinated on himself when he woke up. He does not report few lesions that are red to his left lower extremity. Denies of any chest pain, cough, shortness of breath, Beau pain vomiting, diarrhea. Reports some mild nausea. States he does take 20 mg of prednisone daily for his neuropathy as well as gabapentin. States pain feels very similar but worse today. Patient denies fever, chills, headache, dizziness, visual changes, unilateral muscle weakness. (TC JAIME) Allergies and Home Medications Allergies Coded Allergies: hydrocodone (Verified Allergy, Unknown, TAKES OXYCODONE AT HOME, 05/05/16) STATES IS NOT ALLERGIC TO THIS MED latex (Verified Allergy, Unknown, 05/05/16) Patient Home Medication List Home Medication List Reviewed: Yes (TC JAIME) Albuterol Sulfate (Ventolin Hfa) 8.5 Gm Hfa.aer.ad, 2 PUFF IH QID PRN for SHORTNESS OF BREATH, (Reported) Entered as Reported by: WHITNEY DOWD on 02/26/16 0952 Alprazolam (Alprazolam) 1 Mg Tablet, 1 MG PO BID PRN for ANXIETY, (Reported) Entered as Reported by: LISS EDMOND on 09/18/20 1523 Alprazolam (Xanax) 1 Mg Tablet, 1 MG PO BID Prescribed by: JEFFERSON HUMPHREY on 02/21/23 1425 Cefdinir (Cefdinir) 300 Mg Capsule, 300 MG PO BID Prescribed by: SUSAN SOSA on 12/30/22 1134 Cephalexin (Cephalexin) 500 Mg Tablet, 500 MG PO TID Prescribed by: JEFFERSON HUMPHREY on 02/21/23 1425 Cephalexin (Cephalexin) 500 Mg Tablet, 500 MG PO TID Prescribed by: MARY CARRENO on 05/27/23 1244 Doxycycline Monohydrate (Doxycycline Monohydrate) 100 Mg Tablet, 100 MG PO BID Prescribed by: AMRY CARRENO on 05/27/23 1248 Duloxetine HCl (Duloxetine HCl) 60 Mg Capsule.dr, 60 MG PO DAILY, (Reported) Entered as Reported by: GISELLE MCKEON on 07/05/22 1532 Gabapentin (Gabapentin) 800 Mg Tablet, 800 MG PO TID, (Reported) Entered as Reported by: ENE MARTINI on 04/25/17 1427 Glimepiride (Glimepiride) 2 Mg Tablet, 2 MG PO BID, (Reported) Entered as Reported by: LISS EDMOND on 12/11/22 1051 Ibuprofen (Ibuprofen) 200 Mg Tablet, 400 MG PO Q8H PRN for PAIN-MILD (1-4), (Reported) Entered as Reported by: LISS EDMOND on 12/11/22 1051 Insulin Detemir (Levemir Flextouch) 100 Unit/Ml (3 Ml) Insuln.pen, 30 UNIT SQ BID, (Reported) Entered as Reported by: GISELLE MCKEON on 07/05/22 1532 Insulin Lispro (Insulin Lispro Kwikpen U-100) 100 Unit/1 Ml Insuln.pen, UNITS SQ AC, (Reported) Entered as Reported by: LISS EDMOND on 09/18/20 1523 Lisinopril (Lisinopril) 20 Mg Tablet, 20 MG PO BID PRN for BLOOD PRESSURE, (Reported) Entered as Reported by: LISS EDMOND on 07/08/22 1032 Oxycodone HCl (Oxycodone HCl) 30 Mg Tablet, 30 MG PO Q6H PRN for PAIN-SEVERE (8- 10), (Reported) Entered as Reported by: LISS EDMOND on 12/11/22 1051 Oxycodone HCl (Oxycodone HCl ER) 80 Mg Tab.er.12h, 80 MG PO TID, (Reported) Entered as Reported by: LISS EDMOND on 12/11/22 1051 Prednisone (Prednisone) 20 Mg Tab, 20 MG PO DAILY Prescribed by: SUSAN SOSA on 12/30/22 1134 Prednisone (Prednisone) 20 Mg Tab, 40 MG PO DAILY@0700 Prescribed by: SUSAN SOSA on 12/30/22 1134 Promethazine HCl (Promethazine Tablet) 25 Mg Tablet, 25 MG PO HS, (Reported) Entered as Reported by: WHITNEY DOWD on 02/26/16 0952 Promethazine HCl (Promethazine Tablet) 25 Mg Tablet, 25 MG PO Q6H PRN for NAUSEA/VOMITING-2ND LINE, (Reported) Entered as Reported by: LISS EDMOND on 12/11/22 1051 Sitagliptin Phos/Metformin HCl (Janumet 50-1,000 mg Tablet) 50 Mg-1,000 Mg Tablet, 1 EA PO BID, (Reported) Entered as Reported by: LISS EDMOND on 12/11/22 1051 Review of Systems Review of Systems Constitutional: No chills, No diaphoresis EENTM: No ear pain, No blurred vision, No double vision Respiratory: No cough, No dyspnea on exertion Cardiovascular: No chest pain, No edema Gastrointestinal: No abdominal pain, No diarrhea; nausea; No vomiting Genitourinary: No decreased output, No discharge, No dysuria, No frequency, No hematuria Musculoskeletal: No back pain, No joint pain; muscle pain Skin: No change in color, No change in hair/nails Psychiatric/Neurological: Paresthesia, Tingling Hematologic/Lymphatic: Denies Anemia (TC JAIME) All Other Systems Reviewed Negative Unless Noted: Yes (TC JAIME) Past Rcltaog-Jaqumr-Ahiqjr Hx Patient Social History Tobacco Use?: Yes Tobacco type used: Cigarettes Substance use?: Yes Substance type: Marijuana Alcohol Use?: No (TC JAIME) Immunizations Up To Date Tetanus Booster (TDap): Unknown PED Vaccines UTD: Yes First/Initial COVID19 Vaccinat: X1 Second COVID19 Vaccination Jaden: X1 Third COVID19 Vaccination Date: X1 (TC JAIME) Seasonal Allergies Seasonal Allergies: No (TC JAIME) Past Medical History Surgery/Hospitalization HX: RA, NEUROPATHY, VASCULITIS, SKIN GRAPH FROM LANCE ON RT LEG, MONONEUROTISMULTIPLEX, DIABETIC TYPE II, COPD, HX OF UTI'S AND SEPSIS, RENAL FAILURE Surgeries: Yes Abdominal, Cardiac, Orthopedic Respiratory: Yes (O2 DEPENDENT AT 2L/NC; MULTIPLE INTUBATIONS; CHRONIC RESP FAILURE) Pneumonia, COPD Currently Using CPAP: Yes Currently Using BIPAP: Yes Cardiac: Yes Chronic Edema/Swelling, Hypertension, Peripheral Vascular Neurological: Yes (MONO NEURITIS MULTIPLEX; NEUROPATHY--WHEELCHAIR BOUND) Headaches /Migraines, Neuropathy Reproductive Disorders: No Sexually Transmitted Disease: No HIV/AIDS: No Genitourinary: Yes (SHORT TERM DIALYSIS) Bladder Infection, Kidney Stones, Renal Failure, UTI-Chronic Gastrointestinal: Yes (HEPATITIS C--NO TREATMENT. BILARY STENT) Gastroesophageal Reflux, Liver Disease/Jaundice, Hepatitis, Gall Bladder Disease Musculoskeletal: Yes (WHEELCHAIR BOUND DUE TO MORBID OBESITY;CHROINC PAIN AND DEBILITY. ) Degenerate Disk Disease, Arthritis, Rheumatoid Arthritis, Chronic Back Pain Endocrine: Yes (MORBID OBESITY; ELEVATED URIC ACID) Diabetes, Insulin dep HEENT: No Loss of Vision: Denies Hearing Impairment: Denies Cancer: No Psychosocial: Yes (EXTENSIVE POLYSUBSTANCE ABUSE, WITH NON-SUICIDAL OVERDOSES) Sleep Difficulties, Anxiety, Depression Integumentary: Yes (3RD DEGREE LANCE TO R LEG WITH SKIN GRAFTS; CELLULITIS R LE G) Blood Disorders: No (TC JAIME) Family Medical History Alcoholism 03 FATHER Diabetes mellitus 03 FATHER Family history: Allergy 03 MOTHER Family history: Asthma 03 MOTHER Family history: Hypertension 03 FATHER 03 MOTHER No Pertinent Family Hx SOCIAL HISTORY: -ETOH--HX OF ABUSE, CLAIMS NO RECENT USE -DRUGS--LONGSTANDING EXTENSIVE HISTORY OF DRUG ABUSE, INCLUDING METHAMPHETAMINES, THC, RX DRUGS--ESPECIALLY OPIATES AND BENZODIAZEPINES. HAS HAD MULTIPLE OVERDOSES--NON-SUICIDAL--HAS REQUIRED INTUBATIONS MULTIPLE TIMES IN THE PAST DUE TO OVERDOSES. PAST SURGICAL HISTORY: -BILILARY STENT -BACK SURGERY--LUMBAR HERNIATED DISC -CARDIAC CATH 2009--NORMAL -NERVE BIOPSY RIGHT LEG -SKIN GRAFTS ADDITIONAL PAST MEDICAL HISTORY: -COPD, O2 DEPENDENT AT 2 L/NC, WITH MULTITUDE OF EPISODES OF ACUTE ON CHRONIC RESPIRATORY FAILURE REQUIRING INTUBATION MULTIPLE TIMES, WITH SOME BEING DUE TO DRUG OVERDOSES. - VASCULITIS - CHRONIC LEG EDEMA --RIGHT > LEFT, THIS SIDE HAS BEEN MORE AFFECTED BY LANCE; HAS WORN BRACES ON BOTH LEGS IN THE PAST - WHEELCHAIR BOUND DUE TO MORBID OBESITY, CHRONIC GENERALIZED PAIN, GENERALIZED DEBILITY AND NEUROPATHY--PT CAN STAND FOR TRANSFERS. - HAS BEEN ON DIALYSIS IN THE PAST, BRIEFLY FOR ACUTE RENAL FAILURE - ELEVATED URIC ACID - CHRONIC GENERALIZED PAIN COMPLAINTS - 3RD DEGREE LANCE TO RIGHT LEG 06/2013, WITH SKIN GRAFTS--CAUSED BY PT FALLING ASLEEP WITH LIGHTED CIGARETTE. - CELLULITIS OF RIGHT LEG 09/2015--SEPTIC SHOCK WITH ACUTE RESPIRATORY FAILURE AND RENAL FAILURE--HAD PNEUMONIA AND UTI--ON VENTILATOR AND SHORT TERM DIALYSIS (TC JAIME) Physical Exam Vital Signs Vital Signs - First Documented 05/27/23 05/27/23 10:55 13:15 Temp 36.6 Pulse 82 Resp 18 B/P (MAP) 131/100 (110) Pulse Ox 100 O2 Delivery Room Air (REBECA SAMS MD) Vital Signs Capillary Refill : (TC JAIME) Height, Weight, BMI Height: 6'0.00" Weight: 306lbs. 0.0oz. [id number]; 37.00 BMI Method:Stated General Appearance: No Apparent Distress, WD/WN Eyes: Bilateral Eye Normal Inspection, Bilateral Eye PERRL, Bilateral Eye EOMI HEENT: PERRL/EOMI, TMs Normal, Normal ENT Inspection, Pharynx Normal Neck: Full Range of Motion, Normal Inspection, Non Tender, Supple Respiratory: Chest Non Tender, Lungs Clear, Normal Breath Sounds, No Accessory Muscle Use, No Respiratory Distress Cardiovascular: Regular Rate, Rhythm, No Edema, No Gallop, No JVD Gastrointestinal: Normal Bowel Sounds, No Organomegaly, No Pulsatile Mass, Non Tender Back: Normal Inspection, No CVA Tenderness Extremity: Other (Dorsalis pedis +2 bilateral lower extremities. Radial and ulnar pulse +2 upper extremity. Few erythematous lesions to left lower extremity. Normal active range of motion of the upper and lower extremities. Strength adequate 5 out of 5) Skin: Other (Few erythematous crusty lesions left lower extremity near the foot.) (TC JAIME) Procedures/Interventions Date of ETT Placement: Oct 15, 2018 Time of ETT Placement: 1350 (TC JAIME) Progress/Results/Core Measures Suspected Sepsis SIRS Temperature: Pulse: 82 Respiratory Rate: 18 Laboratory Tests 05/27/23 11:03: White Blood Count 8.7 Blood Pressure 131 /100 Mean: 110 Laboratory Tests 05/27/23 11:03: Creatinine 1.14, Platelet Count 211, Total Bilirubin 2.6H (TC JAIME) Results/Orders Lab Results Laboratory Tests Test 05/27/23 11:03 05/27/23 11:51 Range/Units White Blood Count 8.7 4.3-11.0 10^3/uL Red Blood Count 5.05 4.30-5.52 10^6/uL Hemoglobin 15.4 13.3-17.7 g/dL Hematocrit 45 40-54 % Mean Corpuscular Volume 90 80-99 fL Mean Corpuscular Hemoglobin 31 25-34 pg Mean Corpuscular Hemoglobin Concent 34 32-36 g/dL Red Cell Distribution Width 12.5 10.0-14.5 % Platelet Count 211 130-400 10^3/uL Mean Platelet Volume 10.7 9.0-12.2 fL Immature Granulocyte % (Auto) 1 % Neutrophils (%) (Auto) 66 42-75 % Lymphocytes (%) (Auto) 19 12-44 % Monocytes (%) (Auto) 11 0-12 % Eosinophils (%) (Auto) 3 0-10 % Basophils (%) (Auto) 1 0-10 % Neutrophils # (Auto) 5.7 1.8-7.8 10^3/uL Lymphocytes # (Auto) 1.7 1.0-4.0 10^3/uL Monocytes # (Auto) 1.0 0.0-1.0 10^3/uL Eosinophils # (Auto) 0.2 0.0-0.3 10^3/uL Basophils # (Auto) 0.1 0.0-0.1 10^3/uL Immature Granulocyte # (Auto) 0.0 0.0-0.1 10^3/uL Erythrocyte Sedimentation Rate 38 H 0-30 MM/HR Sodium Level 140 135-145 MMOL/L Potassium Level 4.1 3.6-5.0 MMOL/L Chloride Level 107 98-107 MMOL/L Carbon Dioxide Level 21 21-32 MMOL/L Anion Gap 12 5-14 MMOL/L Blood Urea Nitrogen 9 7-18 MG/DL Creatinine 1.14 0.60-1.30 MG/DL Estimat Glomerular Filtration Rate 75 BUN/Creatinine Ratio 8 Glucose Level 144 H 70-105 MG/DL Calcium Level 11.6 H 8.5-10.1 MG/DL Corrected Calcium 11.8 H 8.5-10.1 MG/DL Total Bilirubin 2.6 H 0.1-1.0 MG/DL Direct Bilirubin 0.9 H 0.0-0.3 MG/DL Aspartate Amino Transf (AST/SGOT) 36 H 5-34 U/L Alanine Aminotransferase (ALT/SGPT) 35 0-55 U/L Alkaline Phosphatase 85 40-136 U/L C-Reactive Protein High Sensitivity 3.78 H 0.00-0.50 MG/DL Total Protein 7.3 6.4-8.2 GM/DL Albumin 3.8 3.2-4.5 GM/DL Urine Color ORANGE Urine Clarity CLEAR Urine pH 5.5 5-9 Urine Specific [place] >=1.030 1.016-1.022 Urine Protein 3+ H NEGATIVE Urine Glucose (UA) TRACE H NEGATIVE Urine Ketones 2+ H NEGATIVE Urine Nitrite NEGATIVE NEGATIVE Urine Bilirubin 3+ H NEGATIVE Urine Urobilinogen >=8.0 < = 1.0 MG/DL Urine Leukocyte Esterase TRACE H NEGATIVE Urine RBC (Auto) 2+ H NEGATIVE Urine RBC 10-25 H /HPF Urine WBC 5-10 H /HPF Urine Squamous Epithelial Cells 2-5 /HPF Urine Crystals PRESENT H /LPF Urine Amorphous Sediment FEW JUHI URATES H /LPF Urine Bacteria FEW H /HPF Urine Casts PRESENT /LPF Urine Hyaline Casts RARE /LPF Urine Mucus MODERATE H /LPF Urine Culture Indicated YES Urine Opiates Screen POSITIVE H NEGATIVE Urine Oxycodone Screen POSITIVE H NEGATIVE Urine Methadone Screen NEGATIVE NEGATIVE Urine Propoxyphene Screen NEGATIVE NEGATIVE Urine Barbiturates Screen NEGATIVE NEGATIVE Ur Tricyclic Antidepressants Screen NEGATIVE NEGATIVE Urine Phencyclidine Screen NEGATIVE NEGATIVE Urine Amphetamines Screen NEGATIVE NEGATIVE Urine Methamphetamines Screen NEGATIVE NEGATIVE Urine Benzodiazepines Screen POSITIVE H NEGATIVE Urine Cocaine Screen NEGATIVE NEGATIVE Urine Cannabinoids Screen POSITIVE H NEGATIVE (REBECA SAMS MD) Medications Given in ED Current Medications Medications Dose Ordered Sig/Lashawn Route Start Time Stop Time Status Last Admin Dose Admin Hydromorphone HCl 0.5 mg ONCE ONCE IV 05/27/23 12:00 05/27/23 12:02 DC 05/27/23 12:19 0.5 MG Methylprednisolone Sodium Succinate 125 mg ONCE ONCE IVP 05/27/23 12:45 05/27/23 12:46 DC 05/27/23 12:54 125 MG (REBECA SAMS MD) Vital Signs/I&O 05/27/23 05/27/23 10:55 13:15 Temp 36.6 Pulse 82 83 Resp 18 B/P (MAP) 131/100 (110) 177/108 Pulse Ox 100 99 O2 Delivery Room Air (REBECA SAMS MD) Vital Signs/I&O Capillary Refill : (TC JAIME) Blood Pressure Mean: 110 Departure Communication (PCP) Patient with extensive medical history. Differential diagnosis, neuropathy. History of mononeuritis multiplex. Daily pain takes oxycodone and OxyContin. Last dose was yesterday. Reports burning pain sensation in the extremities. Normal range of motion of the extremities. No strokelike symptoms. he did urinate on himself 3 days ago but has not had any episodes since. States he is able to urinate without difficulties at home. Denies chest pain, shortness of breath, headache, dizziness, vomit, diarrhea. Patient received a dose of fentanyl with continued pain. Received a dose of IV Dilaudid with improvement. CBC, CMP and urinalysis was ordered. CBC was grossly unremarkable. ESR 38. Chemistry showed a corrected calcium 11.8 with history of elevated calcium in the past. Typically runs between 10 and 11. Does not have any specific symptoms of hypercalcemia. We will continue monitoring at this time. Normal kidney function and liver function. Had a total bilirubin 2.6. Indirect bilirubin 1.5. Patient blood sugar 144. After return of blood sugar did give him 1 dose of Solu-Medrol for the inflammatory response. Does take 20 mg of prednisone daily. He has no right upper quadrant tenderness. He is afebrile with normal white blood count. No active bleeding. Normal hemoglobin and platelets. No known genetic disorders that would be associated. Suggest following up outpatient for further evaluation. Straight cath patient here in the ED for a clean sample. Trace leukocytes, 5-10 white blood cells, red blood cells noted with protein. Potential underlying UTI. Reviewed previous microbiology with no recent susceptible culture. Potentially more contaminated. Did receive Rocephin will discharge with Keflex. He does have a few erythematous crusty lesions the lower extremity around his foot. Concern for cellulitis. Will discharge with doxycycline to cover MRSA and Keflex to help with UTI and skin infections. Does have adequate pulses throughout. Discussed with patient he is on chronic pain medication at a very high dose. He does have a strong strong long history of neuropathy. He is feeling better but patient pain may continue at home and needs to continue with his pain regimen. He needs a follow-up with his PCP in 1 to 2 days for reevaluation. He is not hypoxic or tachycardic. He does not appear dry. Return precaution were discussed (TC JAIME) Impression Primary Impression: Chronic pain Additional Impression: UTI (urinary tract infection) Disposition: 01 HOME, SELF-CARE Condition: Stable Departure-Patient Inst. Decision time for Depature: 12:44 (TC JAIME) Referrals: GINNY YARBROGUH MD (PCP/Family) Primary Care Physician Patient Instructions: Urinary Tract Infection, Adult ED Add. Discharge Instructions: Need to follow-up your primary care physician regarding her pain management All discharge instructions reviewed with patient and/or family. Voiced understanding. Scripts Doxycycline Monohydrate (Doxycycline Monohydrate) 100 Mg Tablet 100 MG PO BID for 7 Days, #14 TAB Prov: TC JAIME 05/27/23 Cephalexin (Cephalexin) 500 Mg Tablet 500 MG PO TID for 7 Days, #21 TAB Prov: TC JAIME 05/27/23 ATTENDING PHYSICIAN NOTE: I was physically present as attending physician in the emergency department during the care of this patient, but I was not directly involved in the decision making or delivery of care for this patient. (REBECA SAMS MD) TC JAIME May 27, 2023 11:18 REBECA SAMS MD May 27, 2023 18:56
[2023-05-27 11:19] LABS: BASOPHILS # (AUTO) 0.1 10^3/uL (0.0-0.1); BASOPHILS % (AUTO) 1 % (0-10); EOSINOPHILS # (AUTO) 0.2 10^3/uL (0.0-0.3); EOSINOPHILS % (AUTO) 3 % (0-10); HEMATOCRIT 45 % (40-54); HEMOGLOBIN 15.4 g/dL (13.3-17.7); LYMPHOCYTES # (AUTO) 1.7 10^3/uL (1.0-4.0); LYMPHOCYTES % (AUTO) 19 % (12-44); MEAN CORPUSCULAR HEMOGLOBIN 31 pg (25-34); MEAN CORPUSCULAR HGB CONC 34 g/dL (32-36); MEAN CORPUSCULAR VOLUME 90 fL (80-99); MEAN PLATELET VOLUME 10.7 fL (9.0-12.2); MONOCYTES % (AUTO) 11 % (0-12); NEUTROPHILS # (AUTO) 5.7 10^3/uL (1.8-7.8); NEUTROPHILS % (AUTO) 66 % (42-75); PLATELET COUNT 211 10^3/uL (130-400); WHITE BLOOD COUNT 8.7 10^3/uL (4.3-11.0)
[2023-05-27 11:23] LABS: ALBUMIN 3.8 GM/DL (3.2-4.5); POTASSIUM 4.1 MMOL/L (3.6-5.0)
[2023-05-27 11:24] LABS: CALCIUM 11.6 MG/DL (8.5-10.1)
[2023-05-27 11:25] LABS: TOTAL PROTEIN 7.3 GM/DL (6.4-8.2)
[2023-05-27 11:27] LABS: BILIRUBIN,TOTAL 2.6 MG/DL (0.1-1.0)
[2023-05-27 11:29] LABS: CREATININE SERUM 1.14 MG/DL (0.60-1.30)
[2023-05-27 11:37] LABS: ERYTHROCYTE SEDIMENTATION RATE 38 MM/HR (0-30)
[2023-05-27] MEDS ORDERED: HYDROmorphone INJECTION 2 MG/ML VIAL IV ONE (12:00)
[2023-05-27 12:24] LABS: BILIRUBIN,URINE 3+ (NEGATIVE); CLARITY,URINE CLEAR; COLOR,URINE ORANGE; GLUCOSE, URINE (UA) TRACE (NEGATIVE); KETONES,URINE 2+ (NEGATIVE); NITRITE,URINE NEGATIVE (NEGATIVE); PH,URINE 5.5 (5-9); PROTEIN,URINE 3+ (NEGATIVE)
[2023-05-27 12:25] LABS: BACTERIA,URINE FEW /HPF; LEUKOCYTE ESTERASE ,URINE TRACE (NEGATIVE)
[2023-05-27 12:26] LABS: AMORPHOUS SEDIMENT,UR FEW AMOR URATES /LPF; HYALINE CASTS, URINE RARE /LPF
[2023-05-27] MEDS ORDERED: cefTRIAXone IV/IM 1,000 MG in NS (IVPB) 50 ML 50 ML IV STA (12:33)
[2023-05-27 12:35] LABS: AMPHETAMINE SCREEN, URINE NEGATIVE (NEGATIVE); BARBITURATE SCREEN URINE NEGATIVE (NEGATIVE); CANNABINOID SCREEN, URINE POSITIVE (NEGATIVE); COCAINE SCREEN URINE NEGATIVE (NEGATIVE); METHADONE STAT NEGATIVE (NEGATIVE); OPIATE SCREEN URINE POSITIVE (NEGATIVE); OXYCODONE STAT POSITIVE (NEGATIVE); PROPOXYPHENE STAT NEGATIVE (NEGATIVE); TRICYCLIC ANTIDEPRESSANTS SCRE NEGATIVE (NEGATIVE)
[2023-05-27] MEDS ORDERED: CEPH500T PO (12:44)
[2023-05-27] MEDS ORDERED: methylPREDNISolone INJ 125 MG VIAL IVP ONE (12:45)
[2023-05-27] MEDS ORDERED: DOXY100T31 PO (12:48)
[2023-05-27 13:15] VITALS: BP 177/108
== END 2023-05-27 13:15 | disposition home or self-care (01) ==
LOC: EDUNIT# 10:53 → ER 10:54
DX: N39.0 Urinary tract infection, site not specified (principal); G89.29 Other chronic pain; E11.40 Type 2 diabetes mellitus with diabetic neuropathy, unspecified; J44.9 Chronic obstructive pulmonary disease, unspecified; F17.210 Nicotine dependence, cigarettes, uncomplicated; E66.01 Morbid (severe) obesity due to excess calories; Z68.37 Body mass index [BMI] 37.0-37.9, adult; Z91.040 Latex allergy status; Z99.81 Dependence on supplemental oxygen; Z79.4 Long term (current) use of insulin; Z79.52 Long term (current) use of systemic steroids; Z79.899 Other long term (current) drug therapy
CPT/HCPCS: 36415; 80053; 80306; 81000; 82248; 85025; 85652; 86141; 87088

== ENCOUNTER 2023-07-16 10:26 | Emergency (ER) | payer MEDICARE, MEDICAID ==
[~2023-07-16] VITALS: Ht 170 cm; Wt 112.9 kg
[~2023-07-16 10:26] MED LIST changes: +DOXY100T31 PO
--- NOTE | 2023-07-16 11:38 | ED General ---
General Chief Complaint: General Problems/Pain Stated Complaint: SWEATING | STOMACH ACHE Nursing Triage Note: PT TO ER VIA WC, MAX ASSIST TO CART. PT HAS C/O "NUMBNESS/PAIN IN HANDS AND FEET", PT REPORTS THIS HAPPENS WHEN HE HAS A FLARE UP OF HIS MONONEURITUS. PT ALSO HAS RA AND IS DIABETIC WITH HX OF NEUROPATHY. 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 Source of Information: Patient Exam Limitations: No Limitations (TC JAIME) History of Present Illness Date Seen by Provider: Jul 16, 2023 Time Seen by Provider: 11:34 Initial Comments Patient is a 57-year-old male with a history of mononeuritis multiplex, COPD, hypertension, vasculitis, frequent urinary tract infections who presents ED with burning in his upper and lower extremities. Symptoms over the past 2 days. Patient states this feels very similar to his flareup of his mononeuritis multiplex. Does take oxycodone extended release as well as oxycodone for breakthrough pain as needed. Patient has been taking his pain medication. Patient did take his dose this morning. Patient reports burning with urination and difficulty with urination. Patient denies of any chest pain, cough, shortness of breath, vomiting, diarrhea. Chronic neuropathy. Patient does take 20 mg prednisone daily for his neuropathy as well as gabapentin. Denies of any fever, chills, headache, dizziness, visual changes, unilateral muscle weakness or sensory changes. (TC JAIME) Allergies and Home Medications Allergies Coded Allergies: hydrocodone (Verified Allergy, Unknown, TAKES OXYCODONE AT HOME, 05/05/16) STATES IS NOT ALLERGIC TO THIS MED latex (Verified Allergy, Unknown, 05/05/16) Patient Home Medication List Home Medication List Reviewed: Yes (TC JAIME) Albuterol Sulfate (Ventolin Hfa) 8.5 Gm Hfa.aer.ad, 2 PUFF IH QID PRN for SHORTNESS OF BREATH, (Reported) Entered as Reported by: WHITNEY DOWD on 02/26/16 0952 Alprazolam (Alprazolam) 1 Mg Tablet, 1 MG PO BID PRN for ANXIETY, (Reported) Entered as Reported by: LISS EDMOND on 09/18/20 1523 Alprazolam (Xanax) 1 Mg Tablet, 1 MG PO BID Prescribed by: JEFFERSON HUMPHREY on 02/21/23 1425 Cefdinir (Cefdinir) 300 Mg Capsule, 300 MG PO BID Prescribed by: SUSAN SOSA on 12/30/22 1134 Cephalexin (Cephalexin) 500 Mg Tablet, 500 MG PO TID Prescribed by: JEFFERSON HUMPHREY on 02/21/23 1425 Cephalexin (Cephalexin) 500 Mg Tablet, 500 MG PO TID Prescribed by: MARY CARRENO on 05/27/23 1244 Doxycycline Monohydrate (Doxycycline Monohydrate) 100 Mg Tablet, 100 MG PO BID Prescribed by: MARY CARRENO on 05/27/23 1248 Duloxetine HCl (Duloxetine HCl) 60 Mg Capsule.dr, 60 MG PO DAILY, (Reported) Entered as Reported by: GISELLE MCKEON on 07/05/22 1532 Gabapentin (Gabapentin) 800 Mg Tablet, 800 MG PO TID, (Reported) Entered as Reported by: ENE MARTINI on 04/25/17 1427 Glimepiride (Glimepiride) 2 Mg Tablet, 2 MG PO BID, (Reported) Entered as Reported by: LISS EDMOND on 12/11/22 1051 Ibuprofen (Ibuprofen) 200 Mg Tablet, 400 MG PO Q8H PRN for PAIN-MILD (1-4), (Reported) Entered as Reported by: LISS EDMOND on 12/11/22 1051 Insulin Detemir (Levemir Flextouch) 100 Unit/Ml (3 Ml) Insuln.pen, 30 UNIT SQ BID, (Reported) Entered as Reported by: GISELLE MCKEON on 07/05/22 1532 Insulin Lispro (Insulin Lispro Kwikpen U-100) 100 Unit/1 Ml Insuln.pen, UNITS SQ AC, (Reported) Entered as Reported by: LISS EDMOND on 09/18/20 1523 Lisinopril (Lisinopril) 20 Mg Tablet, 20 MG PO BID PRN for BLOOD PRESSURE, (Reported) Entered as Reported by: LISS EDMOND on 07/08/22 1032 Oxycodone HCl (Oxycodone HCl) 30 Mg Tablet, 30 MG PO Q6H PRN for PAIN-SEVERE (8- 10), (Reported) Entered as Reported by: LISS EDMOND on 12/11/22 1051 Oxycodone HCl (Oxycodone HCl ER) 80 Mg Tab.er.12h, 80 MG PO TID, (Reported) Entered as Reported by: LISS EDMOND on 12/11/22 1051 Prednisone (Prednisone) 20 Mg Tab, 20 MG PO DAILY Prescribed by: SUSAN SOSA on 12/30/22 1134 Prednisone (Prednisone) 20 Mg Tab, 40 MG PO DAILY@0700 Prescribed by: SUSAN SOSA on 12/30/22 1134 Promethazine HCl (Promethazine Tablet) 25 Mg Tablet, 25 MG PO HS, (Reported) Entered as Reported by: WHITNEY DOWD on 02/26/16 0952 Promethazine HCl (Promethazine Tablet) 25 Mg Tablet, 25 MG PO Q6H PRN for NAUS EA/VOMITING-2ND LINE, (Reported) Entered as Reported by: LISS EDMOND on 12/11/22 1051 Sitagliptin Phos/Metformin HCl (Janumet 50-1,000 mg Tablet) 50 Mg-1,000 Mg Tablet, 1 EA PO BID, (Reported) Entered as Reported by: LISS EDMOND on 12/11/22 1051 Review of Systems Review of Systems Constitutional: No chills, No diaphoresis, No malaise, No weakness EENTM: No ear pain Respiratory: No cough, No dyspnea on exertion Cardiovascular: No chest pain Gastrointestinal: No abdominal pain, No diarrhea, No nausea, No vomiting Genitourinary: decreased output; No discharge; dysuria Musculoskeletal: No back pain Skin: No change in color Psychiatric/Neurological: Numbness (TC JAIME) All Other Systems Reviewed Negative Unless Noted: Yes (TC JAIME) Past Fpafehw-Zttyin-Hovybq Hx Patient Social History Tobacco Use?: Yes Tobacco type used: Cigarettes Smoking Status: Current Everyday Smoker Substance type: Marijuana Alcohol Use?: Unable to obtain (TC JAIME) Immunizations Up To Date Tetanus Booster (TDap): Unknown PED Vaccines UTD: Yes Influenza Vaccine Up-to-Date: No; Not Current First/Initial COVID19 Vaccinat: X1 Second COVID19 Vaccination Jaden: X1 Third COVID19 Vaccination Date: X1 (TC JAIME) Seasonal Allergies Seasonal Allergies: No (TC JAIME) Past Medical History Surgery/Hospitalization HX: RA, NEUROPATHY, VASCULITIS, SKIN GRAPH FROM LANCE ON RT LEG, MONONEUROTISMULTIPLEX, DIABETIC TYPE II, COPD, HX OF UTI'S AND SEPSIS, RENAL FAILURE Surgeries: Yes Abdominal, Cardiac, Orthopedic Respiratory: Yes (O2 DEPENDENT AT 2L/NC; MULTIPLE INTUBATIONS; CHRONIC RESP FAILURE) Pneumonia, COPD Currently Using CPAP: Yes Currently Using BIPAP: Yes Cardiac: Yes Chronic Edema/Swelling, Hypertension, Peripheral Vascular Neurological: Yes (MONO NEURITIS MULTIPLEX; NEUROPATHY--WHEELCHAIR BOUND) Headaches /Migraines, Neuropathy Reproductive Disorders: No Sexually Transmitted Disease: No HIV/AIDS: No Genitourinary: Yes (SHORT TERM DIALYSIS) Bladder Infection, Kidney Stones, Renal Failure, UTI-Chronic Gastrointestinal: Yes (HEPATITIS C--NO TREATMENT. BILARY STENT) Gastroesophageal Reflux, Liver Disease/Jaundice, Hepatitis, Gall Bladder Disease Musculoskeletal: Yes (WHEELCHAIR BOUND DUE TO MORBID OBESITY;CHROINC PAIN AND DEBILITY. ) Degenerate Disk Disease, Arthritis, Rheumatoid Arthritis, Chronic Back Pain Endocrine: Yes (MORBID OBESITY; ELEVATED URIC ACID) Diabetes, Insulin dep HEENT: No Loss of Vision: Denies Hearing Impairment: Denies Cancer: No Psychosocial: Yes (EXTENSIVE POLYSUBSTANCE ABUSE, WITH NON-SUICIDAL OVERDOSES) Sleep Difficulties, Anxiety, Depression Integumentary: Yes (3RD DEGREE LANCE TO R LEG WITH SKIN GRAFTS; CELLULITIS R LEG) Blood Disorders: No (TC JAIME) Family Medical History Alcoholism 03 FATHER Diabetes mellitus 03 FATHER Family history: Allergy 03 MOTHER Family history: Asthma 03 MOTHER Family history: Hypertension 03 FATHER 03 MOTHER No Pertinent Family Hx SOCIAL HISTORY: -ETOH--HX OF ABUSE, CLAIMS NO RECENT USE -DRUGS--LONGSTANDING EXTENSIVE HISTORY OF DRUG ABUSE, INCLUDING METHAMPHETAMINES, THC, RX DRUGS--ESPECIALLY OPIATES AND BENZODIAZEPINES. HAS HAD MULTIPLE OVERDOSES--NON-SUICIDAL--HAS REQUIRED INTUBATIONS MULTIPLE TIMES IN THE PAST DUE TO OVERDOSES. PAST SURGICAL HISTORY: -BILILARY STENT -BACK SURGERY--LUMBAR HERNIATED DISC -CARDIAC CATH 2009--NORMAL -NERVE BIOPSY RIGHT LEG -SKIN GRAFTS ADDITIONAL PAST MEDICAL HISTORY: -COPD, O2 DEPENDENT AT 2 L/NC, WITH MULTITUDE OF EPISODES OF ACUTE ON CHRONIC RESPIRATORY FAILURE REQUIRING INTUBATION MULTIPLE TIMES, WITH SOME BEING DUE TO DRUG OVERDOSES. - VASCULITIS - CHRONIC LEG EDEMA --RIGHT > LEFT, THIS SIDE HAS BEEN MORE AFFECTED BY LANCE; HAS WORN BRACES ON BOTH LEGS IN THE PAST - WHEELCHAIR BOUND DUE TO MORBID OBESITY, CHRONIC GENERALIZED PAIN, GENERALIZED DEBILITY AND NEUROPATHY--PT CAN STAND FOR TRANSFERS. - HAS BEEN ON DIALYSIS IN THE PAST, BRIEFLY FOR ACUTE RENAL FAILURE - ELEVATED URIC ACID - CHRONIC GENERALIZED PAIN COMPLAINTS - 3RD DEGREE LANCE TO RIGHT LEG 06/2013, WITH SKIN GRAFTS--CAUSED BY PT FALLING ASLEEP WITH LIGHTED CIGARETTE. - CELLULITIS OF RIGHT LEG 09/2015--SEPTIC SHOCK WITH ACUTE RESPIRATORY FAILURE AND RENAL FAILURE--HAD PNEUMONIA AND UTI--ON VENTILATOR AND SHORT TERM DIALYSIS (TC JAIME) Physical Exam Vital Signs Vital Signs - First Documented 07/16/23 07/16/23 11:17 13:30 Temp 35.7 Pulse 72 Resp 20 B/P (MAP) 178/157 Pulse Ox 97 O2 Delivery Room Air (REBECA SAMS MD) Vital Signs Capillary Refill : Less Than 3 Seconds (TC JAIME) Height, Weight, BMI Height: 6'0.00" Weight: 306lbs. 0.0oz. 138.500755me; 39.00 BMI Method:Stated General Appearance: No Apparent Distress, WD/WN Eyes: Bilateral Eye Normal Inspection, Bilateral Eye PERRL, Bilateral Eye EOMI HEENT: PERRL/EOMI, TMs Normal, Normal ENT Inspection, Pharynx Normal Neck: Full Range of Motion, Normal Inspection, Non Tender, Supple Respiratory: Chest Non Tender, Lungs Clear, Normal Breath Sounds, No Accessory Muscle Use, No Respiratory Distress Cardiovascular: Regular Rate, Rhythm, No Edema, No Gallop, No JVD Gastrointestinal: Normal Bowel Sounds, No Organomegaly, No Pulsatile Mass Back: Normal Inspection, No CVA Tenderness, No Vertebral Tenderness Extremity: Normal Capillary Refill, Normal Inspection, Normal Range of Motion, Non Tender, Other (Dorsalis pedis, posterior tibialis +2 bilateral lower extremities.) Neurologic/Psychiatric: Alert, Oriented x3, No Motor/Sensory Deficits, Normal Mood/Affect, weight engineer II-XII Norm as Tested Skin: Normal Color, Warm/Dry (TC JAIME) Procedures/Interventions Date of ETT Placement: Oct 15, 2018 Time of ETT Placement: 1350 (TC JAIME) Progress/Results/Core Measures Suspected Sepsis SIRS Temperature: Pulse: 72 Respiratory Rate: 20 Laboratory Tests 07/16/23 11:43: White Blood Count 13.6H Blood Pressure / Mean: Laboratory Tests 07/16/23 11:43: Creatinine 1.26, Platelet Count 234, Total Bilirubin 0.8 (TC JAIME) Results/Orders Lab Results Laboratory Tests Test 07/16/23 11:43 07/16/23 12:44 Range/Units White Blood Count 13.6 H 4.3-11.0 10^3/uL Red Blood Count 4.96 4.30-5.52 10^6/uL Hemoglobin 14.9 13.3-17.7 g/dL Hematocrit 45 40-54 % Mean Corpuscular Volume 90 80-99 fL Mean Corpuscular Hemoglobin 30 25-34 pg Mean Corpuscular Hemoglobin Concent 33 32-36 g/dL Red Cell Distribution Width 13.1 10.0-14.5 % Platelet Count 234 130-400 10^3/uL Mean Platelet Volume 10.3 9.0-12.2 fL Immature Granulocyte % (Auto) 1 % Neutrophils (%) (Auto) 75 42-75 % Lymphocytes (%) (Auto) 16 12-44 % Monocytes (%) (Auto) 7 0-12 % Eosinophils (%) (Auto) 1 0-10 % Basophils (%) (Auto) 1 0-10 % Neutrophils # (Auto) 10.1 H 1.8-7.8 10^3/uL Lymphocytes # (Auto) 2.2 1.0-4.0 10^3/uL Monocytes # (Auto) 0.9 0.0-1.0 10^3/uL Eosinophils # (Auto) 0.2 0.0-0.3 10^3/uL Basophils # (Auto) 0.1 0.0-0.1 10^3/uL Immature Granulocyte # (Auto) 0.1 0.0-0.1 10^3/uL Erythrocyte Sedimentation Rate 37 H 0-30 MM/HR Sodium Level 143 135-145 MMOL/L Potassium Level 3.9 3.6-5.0 MMOL/L Chloride Level 109 H 98-107 MMOL/L Carbon Dioxide Level 24 21-32 MMOL/L Anion Gap 10 5-14 MMOL/L Blood Urea Nitrogen 16 7-18 MG/DL Creatinine 1.26 0.60-1.30 MG/DL Estimat Glomerular Filtration Rate 66 BUN/Creatinine Ratio 13 Glucose Level 155 H 70-105 MG/DL Calcium Level 10.7 H 8.5-10.1 MG/DL Corrected Calcium 10.9 H 8.5-10.1 MG/DL Total Bilirubin 0.8 0.1-1.0 MG/DL Aspartate Amino Transf (AST/SGOT) 11 5-34 U/L Alanine Aminotransferase (ALT/SGPT) 16 0-55 U/L Alkaline Phosphatase 90 40-136 U/L C-Reactive Protein High Sensitivity 0.44 0.00-0.50 MG/DL Total Protein 6.9 6.4-8.2 GM/DL Albumin 3.8 3.2-4.5 GM/DL Urine Color YELLOW Urine Clarity CLOUDY Urine pH 5.5 5-9 Urine Specific [place] >=1.030 1.016-1.022 Urine Protein 2+ H NEGATIVE Urine Glucose (UA) NEGATIVE NEGATIVE Urine Ketones NEGATIVE NEGATIVE Urine Nitrite NEGATIVE NEGATIVE Urine Bilirubin 1+ H NEGATIVE Urine Urobilinogen 1.0 < = 1.0 MG/DL Urine Leukocyte Esterase NEGATIVE NEGATIVE Urine RBC (Auto) 2+ H NEGATIVE Urine RBC 2-5 H /HPF Urine WBC NONE /HPF Urine Squamous Epithelial Cells NONE /HPF Urine Crystals PRESENT H /LPF Urine Amorphous Sediment FEW JUHI URATES H /LPF Urine Bacteria NEGATIVE /HPF Urine Casts NONE /LPF Urine Mucus NEGATIVE /LPF Urine Culture Indicated NO (REBECA SAMS MD) Vital Signs/I&O 07/16/23 07/16/23 11:17 13:30 Temp 35.7 Pulse 72 74 Resp 20 B/P (MAP) 178/157 Pulse Ox 97 99 O2 Delivery Room Air Room Air (REBECA SAMS MD) Vital Signs/I&O Capillary Refill : Less Than 3 Seconds (TC JAIME) Departure Communication (PCP) Reviewed previous ER visits, H&P, lab testing. History of mononeuritis multiplex. Chronic pain in his upper and lower extremities numbness and tingling. Similar type pain today but worse. Does take extended release OxyContin and oxycodone immediate release as needed for breakthrough pain. No vomiting diarrhea chest pain short of breath or abdominal pain. History of RA. Denies of any falls. No fever chills body aches. Afebrile. Is not tachycardic or hypoxic. Hypertensive. CBC, CMP, lipase CRP ESR was ordered as well as urinalysis. CBC 13, ESR 37 chronically slightly higher. Normal CRP. Chemistry was grossly unremarkable. Urinalysis with hematuria without evidence of leukocytes or infection. Patient refused anything for pain. He does not appear toxic or septic. No evidence of surgical abdomen. Lung sounds clear bilateral. He was concern for potential urinary tract infection which does not appear with his urinalysis. At this time recommend continue monitoring symptoms. If any worsening symptoms such as fever vomiting diarrhea abdominal pain to return back to ED. No further imaging at this time. He is tolerating p.o. fluids. Producing urine without difficulties. (TC JAIME) Impression Primary Impression: Chronic pain Disposition: HOME, SELF-CARE Condition: Stable Departure-Patient Inst. Decision time for Depature: 13:23 (TC JAIME) Referrals: GINNY YARBROUGH MD (PCP/Family) Primary Care Physician Patient Instructions: Chronic Pain (DC) Add. Discharge Instructions: Continue with your pain regimen. Follow-up with your PCP for further evaluation. All discharge instructions reviewed with patient and/or family. Voiced understanding. ATTENDING PHYSICIAN NOTE: I was physically present as attending physician in the emergency department during the care of this patient, but I was not directly involved in the decision making or delivery of care for this patient. (REBECA SAMS MD) TC JAIME Jul 16, 2023 11:38 REBECA SAMS MD Jul 16, 2023 19:05
[2023-07-16 12:00] LABS: ALBUMIN 3.8 GM/DL (3.2-4.5); POTASSIUM 3.9 MMOL/L (3.6-5.0)
[2023-07-16 12:01] LABS: BASOPHILS # (AUTO) 0.1 10^3/uL (0.0-0.1); BASOPHILS % (AUTO) 1 % (0-10); CALCIUM 10.7 MG/DL (8.5-10.1); EOSINOPHILS # (AUTO) 0.2 10^3/uL (0.0-0.3); EOSINOPHILS % (AUTO) 1 % (0-10); HEMATOCRIT 45 % (40-54); HEMOGLOBIN 14.9 g/dL (13.3-17.7); LYMPHOCYTES # (AUTO) 2.2 10^3/uL (1.0-4.0); LYMPHOCYTES % (AUTO) 16 % (12-44); MEAN CORPUSCULAR HEMOGLOBIN 30 pg (25-34); MEAN CORPUSCULAR HGB CONC 33 g/dL (32-36); MEAN CORPUSCULAR VOLUME 90 fL (80-99); MEAN PLATELET VOLUME 10.3 fL (9.0-12.2); MONOCYTES # (AUTO) 0.9 10^3/uL (0.0-1.0); MONOCYTES % (AUTO) 7 % (0-12); NEUTROPHILS # (AUTO) 10.1 10^3/uL (1.8-7.8); NEUTROPHILS % (AUTO) 75 % (42-75); PLATELET COUNT 234 10^3/uL (130-400); WHITE BLOOD COUNT 13.6 10^3/uL (4.3-11.0)
[2023-07-16 12:03] LABS: TOTAL PROTEIN 6.9 GM/DL (6.4-8.2)
[2023-07-16 12:04] LABS: BILIRUBIN,TOTAL 0.8 MG/DL (0.1-1.0)
[2023-07-16 12:06] LABS: CREATININE SERUM 1.26 MG/DL (0.60-1.30)
[2023-07-16 12:57] LABS: ERYTHROCYTE SEDIMENTATION RATE 37 MM/HR (0-30)
[2023-07-16 13:07] LABS: BACTERIA,URINE NEGATIVE /HPF; BILIRUBIN,URINE 1+ (NEGATIVE); CLARITY,URINE CLOUDY; COLOR,URINE YELLOW; GLUCOSE, URINE (UA) NEGATIVE (NEGATIVE); KETONES,URINE NEGATIVE (NEGATIVE); LEUKOCYTE ESTERASE ,URINE NEGATIVE (NEGATIVE); NITRITE,URINE NEGATIVE (NEGATIVE); PH,URINE 5.5 (5-9); PROTEIN,URINE 2+ (NEGATIVE)
[2023-07-16 13:08] LABS: AMORPHOUS SEDIMENT,UR FEW AMOR URATES /LPF
[2023-07-16 13:30] VITALS: BP 178/157
== END 2023-07-16 13:28 | disposition home or self-care (01) ==
LOC: EDUNIT# 10:26 → ER 10:28
DX: G89.29 Other chronic pain (principal); E11.40 Type 2 diabetes mellitus with diabetic neuropathy, unspecified; J44.9 Chronic obstructive pulmonary disease, unspecified; E66.01 Morbid (severe) obesity due to excess calories; F17.210 Nicotine dependence, cigarettes, uncomplicated; Z68.39 Body mass index [BMI] 39.0-39.9, adult; Z99.81 Dependence on supplemental oxygen; Z91.040 Latex allergy status; Z79.4 Long term (current) use of insulin
CPT/HCPCS: 36415; 51701; 80053; 81000; 85025; 85652; 86141